=== PATIENT | male | born 1955 | race Caucasian/White ===

== ENCOUNTER → 2020-06-11 08:34 | Outpatient (REF) | payer MEDICARE, MEDICAID, SELFPAY ==
--- NOTE | 2020-06-11 | NM_ITS ---
EXAMINATION: NM BONE SCAN OF THE WHOLE BODY CLINICAL INFORMATION: Prostate cancer. History of arthritis, rib pain right side, also pain in back and feet. Right ankle fracture and surgery 2016. COMPARISON: The previous bone scan dated 02/24/2017 is available for comparison. Radiographs of the chest dated 05/27/2020 is available for comparison. Radiographs of the left knee dated 07/11/2019 and right ankle dated 03/15/2019 are also available for comparison. CTA the chest dated 05/29/2020 is available for comparison. TECHNIQUE: Multiple gamma scintillation camera images of the whole body were performed 3 hours following the intravenous administration of 34.4 mCi Tc-99m MDP. FINDINGS: In the head, no significant abnormalities are present. In the thoracic cage and upper extremities, there is very mildly increased activity acromioclavicular and sternoclavicular joints bilaterally. There is a small faint focus of increased activity at the junction of the right fifth rib and sternum. There is a focus of mildly increased activity in the right wrist. In the spine, a few foci of mildly increased activity are present in the mid and lower lumbar spine, most prominently diffusely at L5 and there is mildly increased activity in the right posterior elements of the lower cervical spine, likely due to facet arthropathy. In the pelvis, there is mildly increased activity in the superior lip of the acetabula bilaterally, more prominently on the left. In the lower extremities, there is a moderately intense increase in activity in the patellar and medial compartments of the left knee and there is diffusely increased activity in the right ankle and a small focus of mildly increased activity is present in the proximal left foot. No other definite bony abnormalities are noted. The urinary bladder and faint visualization of both kidneys are noted. Compared to the previous bone scan dated 02/24/2017, increased activity of moderate intensity at T12 is no longer present. The L5 abnormality is slightly more prominent as is the abnormality in the right posterior elements of the lower cervical spine. The left knee abnormalities are more intense. The remainder the scan is unchanged. IMPRESSION: Mild nonspecific abnormalities are noted as described above and these are all likely arthritic or traumatic in etiology. None of these abnormalities is strongly suspicious for metastatic disease.
== END ==
LOC: HO.NUCMED 08:34
PROVIDERS: PCP Physician Assistant; Visit Provider Urology
DX: C61 Malignant neoplasm of prostate (principal)
CPT/HCPCS: 78306; A9503

== ENCOUNTER → 2020-06-14 09:09 | Outpatient (BNVA) | payer MEDICARE, MEDICAID, SELFPAY | PROVIDERS: PCP Physician Assistant; Referring Provider Physician Assistant; Visit Provider Urology | DX: Z76.89 Persons encountering health services in other specified circumstances (principal) | CPT/HCPCS: 99212 ==

== ENCOUNTER → 2020-07-03 12:47 | Outpatient (BNVA) | payer MEDICARE, MEDICAID, SELFPAY | PROVIDERS: Visit Provider Internal Medicine Pulmonary Disease | DX: R06.02 Shortness of breath (principal) | CPT/HCPCS: 99212 ==

== ENCOUNTER 2020-07-08 08:56 | Outpatient (REF) | payer MEDICARE, MEDICAID, SELFPAY ==
[2020-07-08 10:11] LABS: MANUAL DIFF FLAG NO
[2020-07-08 10:24] LABS: Basophils Percent Auto 0.3 % (0-2); Eosinophils Absolute Auto 0.2 X10*3/uL (0.0-0.4); Eosinophils Percent Auto 2.6 % (0-4); Hematocrit 44.8 % (42-52); Hemoglobin 14.7 g/dl (14.0-18.0); Imm Gran Abs Auto 0.05 X10*3/uL (0.00-0.03); Imm Gran Pct Auto 0.7 % (0.0-0.4); Lymphocytes Absolute Auto 2.2 X10*3/uL (1.2-4.9); Lymphocytes Percent Auto 29.4 % (20-40); Mean Corpuscular HGB Conc 32.8 g/dl (31.0-36.0); Mean Corpuscular Hemoglobin 30.2 pg (27.0-33.0); Mean Corpuscular Volume 92.2 fL (80-98); Mean Platelet Volume 10.4 fL (9.4-12.4); Monocytes Absolute Auto 0.7 X10*3/uL (0.1-1.2); Neutrophils Absolute Auto 4.3 X10*3/uL (2.0-8.3); Platelet Count 201 X10*3/uL (160-400); Red Blood Count 4.86 X10*6/uL (4.60-5.80); Red Cell Distribution Width 13.4 % (11.0-16.0); White Blood Count 7.3 X10*3/uL (4.8-10.8)
[2020-07-08 11:04] LABS: Alanine Aminotransferase 25 U/L (0-40); Albumin Level 4.2 g/dL (3.5-5.0); Alkaline Phosphatase 110 U/L (39-117); Anion Gap 13 (12-20); Aspartate Amino Transferase 18 U/L (5-37); Bilirubin Total 0.5 mg/dL (0.0-1.0); Blood Urea Nitrogen 18 mg/dL (9-16); Calcium 8.7 mg/dL (8.4-10.2); Carbon Dioxide 25 mmol/L (22-29); Chloride 105 mmol/L (96-108); Estimated Glomerular Filt Rate > 60; Glucose Fasting 96 mg/dL (60-99); Potassium 4.3 mmol/l (3.3-5.1); Sodium 139 mmol/L (135-145); Total Protein 6.9 g/dL (6.5-8.0)
[2020-07-08 11:28] LABS: Prostate Specific Antigen 0.11 ng/mL (<0.05-4.0)
== END 2020-07-08 08:57 | disposition home or self-care (01) ==
LOC: HO.10HDL 08:56
PROVIDERS: PCP Physician Assistant; Visit Provider Internal Medicine Medical Oncology
DX: C61 Malignant neoplasm of prostate (principal); N40.0 Benign prostatic hyperplasia without lower urinary tract symptoms
CPT/HCPCS: 36415; 80053; 84153; 85025

== ENCOUNTER 2020-07-09 09:56 | Outpatient (REF) | payer MEDICARE, MEDICAID, SELFPAY | END 2020-07-09 09:57 | disposition home or self-care (01) | LOC: HO.RESP 09:56 | PROVIDERS: PCP Internal Medicine Pulmonary Disease; Visit Provider Internal Medicine Pulmonary Disease | DX: R06.09 Other forms of dyspnea (principal) ==

== ENCOUNTER → 2020-07-17 10:32 | Outpatient (BNVA) | payer MEDICARE, MEDICAID, SELFPAY | PROVIDERS: PCP Physician Assistant; Visit Provider Internal Medicine Pulmonary Disease | DX: R06.09 Other forms of dyspnea (principal) | CPT/HCPCS: 99212 ==

== ENCOUNTER → 2020-08-05 08:23 | Outpatient (BNVA) | payer MEDICARE, MEDICAID, SELFPAY | PROVIDERS: Referring Provider Physician Assistant; Visit Provider Internal Medicine Cardiovascular Disease | DX: I10 Essential (primary) hypertension (principal) | CPT/HCPCS: 99212 ==

== ENCOUNTER 2020-09-03 09:19 | Outpatient (REF) | payer MEDICARE, MEDICAID, SELFPAY ==
[2020-09-03 10:03] LABS: MANUAL DIFF FLAG NO
[2020-09-03 10:07] LABS: Basophils Percent Auto 0.4 % (0-2); Eosinophils Absolute Auto 0.2 X10*3/uL (0.0-0.4); Eosinophils Percent Auto 4.2 % (0-4); Hematocrit 46.1 % (42-52); Hemoglobin 15.2 g/dl (14.0-18.0); Imm Gran Abs Auto 0.01 X10*3/uL (0.00-0.03); Imm Gran Pct Auto 0.2 % (0.0-0.4); Lymphocytes Percent Auto 34.9 % (20-40); Mean Corpuscular Hemoglobin 30.3 pg (27.0-33.0); Mean Platelet Volume 10.2 fL (9.4-12.4); Monocytes Absolute Auto 0.5 X10*3/uL (0.1-1.2); Neutrophils Absolute Auto 2.9 X10*3/uL (2.0-8.3); Neutrophils Percent Auto 51.3 % (45-73); Platelet Count 179 X10*3/uL (160-400); Red Blood Count 5.01 X10*6/uL (4.60-5.80); Red Cell Distribution Width 13.2 % (11.0-16.0); White Blood Count 5.7 X10*3/uL (4.8-10.8)
[2020-09-03 10:37] LABS: Creatinine Urine 112.33 mg/dL; Microalbumin Urine < 5.0 mg/L
[2020-09-03 10:40] LABS: Alanine Aminotransferase 19 U/L (0-40); Albumin Level 4.4 g/dL (3.5-5.0); Alkaline Phosphatase 123 U/L (39-117); Anion Gap 12 (12-20); Aspartate Amino Transferase 14 U/L (5-37); Bilirubin Total 0.5 mg/dL (0.0-1.0); Blood Urea Nitrogen 11 mg/dL (9-16); Calcium 8.6 mg/dL (8.4-10.2); Carbon Dioxide 28 mmol/L (22-29); Chloride 103 mmol/L (96-108); Cholesterol 225 mg/dL; Estimated Glomerular Filt Rate > 60; Glucose Fasting 107 mg/dL (60-99); HDL Cholesterol 42 mg/dL; LDL Cholesterol Calculated 165 mg/dl; Sodium 139 mmol/L (135-145); Triglycerides 93 mg/dL
[2020-09-03 11:00] LABS: Prostate Specific Antigen 0.11 ng/mL (<0.05-4.0)
[2020-09-07 11:32] LABS: Testosterone, Free 88.9 pg/mL (35.0-155.0); Testosterone, Total 644 ng/dL (250-1100)
== END 2020-09-03 09:20 | disposition home or self-care (01) ==
LOC: HO.10HDL 09:19
PROVIDERS: Absent Provider Urology; Visit Provider Physician Assistant
DX: C61 Malignant neoplasm of prostate (principal); C79.51 Secondary malignant neoplasm of bone; E29.1 Testicular hypofunction; I10 Essential (primary) hypertension
CPT/HCPCS: 36415; 80053; 80061; 82043; 84153; 84402; 84403; 85025

== ENCOUNTER 2020-10-04 09:06 | Outpatient (REF) | payer MEDICARE, MEDICAID, SELFPAY ==
[2020-10-04 10:03] LABS: MANUAL DIFF FLAG NO
[2020-10-04 10:11] LABS: Basophils Percent Auto 0.4 % (0-2); Eosinophils Absolute Auto 0.2 X10*3/uL (0.0-0.4); Eosinophils Percent Auto 3.4 % (0-4); Hematocrit 46.7 % (42-52); Hemoglobin 15.5 g/dl (14.0-18.0); Imm Gran Abs Auto 0.02 X10*3/uL (0.00-0.03); Imm Gran Pct Auto 0.3 % (0.0-0.4); Lymphocytes Absolute Auto 2.3 X10*3/uL (1.2-4.9); Mean Corpuscular HGB Conc 33.2 g/dl (31.0-36.0); Mean Corpuscular Hemoglobin 30.5 pg (27.0-33.0); Mean Corpuscular Volume 91.9 fL (80-98); Mean Platelet Volume 10.9 fL (9.4-12.4); Monocytes Absolute Auto 0.5 X10*3/uL (0.1-1.2); Monocytes Percent Auto 7.7 % (2-11); Neutrophils Absolute Auto 3.6 X10*3/uL (2.0-8.3); Neutrophils Percent Auto 54.2 % (45-73); Platelet Count 187 X10*3/uL (160-400); Red Blood Count 5.08 X10*6/uL (4.60-5.80); Red Cell Distribution Width 12.8 % (11.0-16.0); White Blood Count 6.7 X10*3/uL (4.8-10.8)
[2020-10-04 10:44] LABS: Alanine Aminotransferase 18 U/L (0-40); Albumin Level 4.4 g/dL (3.5-5.0); Alkaline Phosphatase 122 U/L (39-117); Anion Gap 12 (12-20); Aspartate Amino Transferase 17 U/L (5-37); Bilirubin Total 0.6 mg/dL (0.0-1.0); Blood Urea Nitrogen 12 mg/dL (9-16); Calcium 8.8 mg/dL (8.4-10.2); Carbon Dioxide 27 mmol/L (22-29); Chloride 104 mmol/L (96-108); Estimated Glomerular Filt Rate > 60; Glucose Fasting 100 mg/dL (60-99); Sodium 139 mmol/L (135-145); Total Protein 7.3 g/dL (6.5-8.0)
[2020-10-04 11:08] LABS: Prostate Specific Antigen 0.12 ng/mL (<0.05-4.0)
[2020-10-11 11:47] LABS: Testosterone, Total 2231 ng/dL (250-1100)
== END 2020-10-04 09:07 | disposition home or self-care (01) ==
LOC: HO.10HDL 09:06
PROVIDERS: Absent Provider Urology; PCP Physician Assistant; Visit Provider Internal Medicine Medical Oncology
DX: N40.0 Benign prostatic hyperplasia without lower urinary tract symptoms (principal); C61 Malignant neoplasm of prostate; Z12.5 Encounter for screening for malignant neoplasm of prostate
CPT/HCPCS: 36415; 80053; 84153; 84403; 85025

== ENCOUNTER → 2020-10-22 10:59 | Outpatient (BNVA) | payer MEDICARE, MEDICAID, SELFPAY | PROVIDERS: PCP Physician Assistant; Visit Provider Urology | DX: E29.1 Testicular hypofunction (principal); C61 Malignant neoplasm of prostate | CPT/HCPCS: 99212 ==

== ENCOUNTER 2020-11-06 09:55 | Outpatient (REF) | payer MEDICARE, MEDICAID, SELFPAY ==
[2020-11-06 14:47] LABS: Prostate Specific Antigen 0.13 ng/mL (<0.05-4.0)
[2020-11-10 21:31] LABS: Testosterone, Total 682 ng/dL (250-1100)
== END 2020-11-06 09:56 | disposition home or self-care (01) ==
LOC: HO.10HDL 09:55
PROVIDERS: Visit Provider Urology
DX: C61 Malignant neoplasm of prostate (principal); C79.51 Secondary malignant neoplasm of bone; N13.8 Other obstructive and reflux uropathy; N40.1 Benign prostatic hyperplasia with lower urinary tract symptoms
CPT/HCPCS: 36415; 84153; 84403

== ENCOUNTER → 2020-11-19 11:30 | Outpatient (BNVA) | payer MEDICARE, MEDICAID, SELFPAY | PROVIDERS: PCP Physician Assistant; Visit Provider Urology | DX: Z13.89 Encounter for screening for other disorder (principal) | CPT/HCPCS: Q3014 ==

== ENCOUNTER 2021-01-08 09:40 | Outpatient (REF) | payer MEDICARE, MEDICAID, SELFPAY ==
[2021-01-08 13:59] LABS: MANUAL DIFF FLAG NO
[2021-01-08 14:04] LABS: Basophils Percent Auto 0.4 % (0-2); Eosinophils Absolute Auto 0.4 X10*3/uL (0.0-0.4); Eosinophils Percent Auto 5.7 % (0-4); Hematocrit 46.3 % (42-52); Hemoglobin 15.4 g/dl (14.0-18.0); Imm Gran Abs Auto 0.02 X10*3/uL (0.00-0.03); Imm Gran Pct Auto 0.3 % (0.0-0.4); Lymphocytes Percent Auto 27.2 % (20-40); Mean Corpuscular HGB Conc 33.3 g/dl (31.0-36.0); Mean Corpuscular Hemoglobin 30.4 pg (27.0-33.0); Mean Corpuscular Volume 91.5 fL (80-98); Mean Platelet Volume 11.1 fL (9.4-12.4); Monocytes Absolute Auto 0.7 X10*3/uL (0.1-1.2); Monocytes Percent Auto 8.7 % (2-11); Neutrophils Absolute Auto 4.3 X10*3/uL (2.0-8.3); Neutrophils Percent Auto 57.7 % (45-73); Platelet Count 201 X10*3/uL (160-400); Red Blood Count 5.06 X10*6/uL (4.60-5.80); Red Cell Distribution Width 13.7 % (11.0-16.0); White Blood Count 7.5 X10*3/uL (4.8-10.8)
[2021-01-08 14:27] LABS: Alanine Aminotransferase 18 U/L (0-40); Albumin Level 4.5 g/dL (3.5-5.0); Alkaline Phosphatase 124 U/L (39-117); Anion Gap 13 (12-20); Aspartate Amino Transferase 15 U/L (5-37); Bilirubin Total 0.5 mg/dL (0.0-1.0); Blood Urea Nitrogen 19 mg/dL (9-16); Calcium 9.2 mg/dL (8.4-10.2); Carbon Dioxide 26 mmol/L (22-29); Chloride 105 mmol/L (96-108); Cholesterol 225 mg/dL; Estimated Glomerular Filt Rate > 60; Glucose Fasting 104 mg/dL (60-99); HDL Cholesterol 35 mg/dL; LDL Cholesterol Calculated 171 mg/dl; Potassium 4.3 mmol/L (3.3-5.1); Sodium 140 mmol/L (135-145); Total Protein 7.3 g/dL (6.5-8.0); Triglycerides 96 mg/dL
[2021-01-08 14:47] LABS: Prostate Specific Antigen 0.13 ng/mL (<0.05-4.0)
== END 2021-01-08 09:41 | disposition home or self-care (01) ==
LOC: HO.10HDL 09:40
PROVIDERS: Visit Provider Internal Medicine Medical Oncology
DX: Z12.5 Encounter for screening for malignant neoplasm of prostate (principal); C61 Malignant neoplasm of prostate; E66.3 Overweight; M85.80 Other specified disorders of bone density and structure, unspecified site; N40.0 Benign prostatic hyperplasia without lower urinary tract symptoms
CPT/HCPCS: 36415; 80053; 80061; 84153; 85025

== ENCOUNTER → 2021-02-10 09:01 | Outpatient (BNVA) | payer MEDICARE, MEDICAID, SELFPAY | PROVIDERS: PCP Physician Assistant; Referring Provider Physician Assistant; Visit Provider Internal Medicine Cardiovascular Disease | DX: I10 Essential (primary) hypertension (principal); Z79.899 Other long term (current) drug therapy | CPT/HCPCS: 99212 ==

== ENCOUNTER 2021-03-12 07:38 | Outpatient (REF) | payer MEDICARE, MEDICAID, SELFPAY ==
--- NOTE | ~2021-03-12 | XR_ITS ---
EXAMINATION: XR SHOULDER, RIGHT XR CLAVICLE, RIGHT XR ELBOW, RIGHT CLINICAL INFORMATION: Right shoulder pain. Upper arm deformity. COMPARISON: Right elbow radiographs dated 01/07/2016. Chest radiograph dated 05/27/2020. TECHNIQUE: AP, Grashey, scapular Y, and axillary views of the right shoulder. AP view of the right clavicle. AP, oblique, and lateral views of the right elbow. FINDINGS: RIGHT SHOULDER: Mild glenohumeral joint space narrowing with small marginal osteophytes. Moderate acromioclavicular osteoarthritis with subacromial spurring. No osseous erosion. No abnormal soft tissue calcification. No lytic or blastic osseous lesion. RIGHT CLAVICLE: Chronic deformity of the distal right clavicle, consistent with a remote distal right clavicular fracture. Findings are unchanged when compared to prior examinations. No lytic or blastic osseous lesion. Moderate acromioclavicular osteoarthritis. RIGHT ELBOW: Severe radiocapitellar and ulnotrochlear joint space narrowing with prominent bony remodeling and subchondral sclerosis. Large ossified loose body anteriorly measuring up to 2.9 cm. No acute fracture. No joint effusion. XR/XR clavicle RT IMPRESSION: Right shoulder: Mild glenohumeral and moderate acromioclavicular osteoarthritis. Right clavicle: Deformity of the distal right clavicle, consistent with a remote fracture, unchanged. Right elbow: Severe osteoarthritis with a large ossified loose body anteriorly measuring up to 2.9 cm. Findings are similar when compared to the prior radiographs from 2016.
--- NOTE | ~2021-03-12 | XR_ITS ---
EXAMINATION: XR SHOULDER, RIGHT XR CLAVICLE, RIGHT XR ELBOW, RIGHT CLINICAL INFORMATION: Right shoulder pain. Upper arm deformity. COMPARISON: Right elbow radiographs dated 01/07/2016. Chest radiograph dated 05/27/2020. TECHNIQUE: AP, Grashey, scapular Y, and axillary views of the right shoulder. AP view of the right clavicle. AP, oblique, and lateral views of the right elbow. FINDINGS: RIGHT SHOULDER: Mild glenohumeral joint space narrowing with small marginal osteophytes. Moderate acromioclavicular osteoarthritis with subacromial spurring. No osseous erosion. No abnormal soft tissue calcification. No lytic or blastic osseous lesion. RIGHT CLAVICLE: Chronic deformity of the distal right clavicle, consistent with a remote distal right clavicular fracture. Findings are unchanged when compared to prior examinations. No lytic or blastic osseous lesion. Moderate acromioclavicular osteoarthritis. RIGHT ELBOW: Severe radiocapitellar and ulnotrochlear joint space narrowing with prominent bony remodeling and subchondral sclerosis. Large ossified loose body anteriorly measuring up to 2.9 cm. No acute fracture. No joint effusion. XR/XR shoulder RT min 2V IMPRESSION: Right shoulder: Mild glenohumeral and moderate acromioclavicular osteoarthritis. Right clavicle: Deformity of the distal right clavicle, consistent with a remote fracture, unchanged. Right elbow: Severe osteoarthritis with a large ossified loose body anteriorly measuring up to 2.9 cm. Findings are similar when compared to the prior radiographs from 2016.
--- NOTE | ~2021-03-12 | XR_ITS ---
EXAMINATION: XR SHOULDER, RIGHT XR CLAVICLE, RIGHT XR ELBOW, RIGHT CLINICAL INFORMATION: Right shoulder pain. Upper arm deformity. COMPARISON: Right elbow radiographs dated 01/07/2016. Chest radiograph dated 05/27/2020. TECHNIQUE: AP, Grashey, scapular Y, and axillary views of the right shoulder. AP view of the right clavicle. AP, oblique, and lateral views of the right elbow. FINDINGS: RIGHT SHOULDER: Mild glenohumeral joint space narrowing with small marginal osteophytes. Moderate acromioclavicular osteoarthritis with subacromial spurring. No osseous erosion. No abnormal soft tissue calcification. No lytic or blastic osseous lesion. RIGHT CLAVICLE: Chronic deformity of the distal right clavicle, consistent with a remote distal right clavicular fracture. Findings are unchanged when compared to prior examinations. No lytic or blastic osseous lesion. Moderate acromioclavicular osteoarthritis. RIGHT ELBOW: Severe radiocapitellar and ulnotrochlear joint space narrowing with prominent bony remodeling and subchondral sclerosis. Large ossified loose body anteriorly measuring up to 2.9 cm. No acute fracture. No joint effusion. XR/XR elbow RT 2V IMPRESSION: Right shoulder: Mild glenohumeral and moderate acromioclavicular osteoarthritis. Right clavicle: Deformity of the distal right clavicle, consistent with a remote fracture, unchanged. Right elbow: Severe osteoarthritis with a large ossified loose body anteriorly measuring up to 2.9 cm. Findings are similar when compared to the prior radiographs from 2016.
[2021-03-12 10:06] LABS: MANUAL DIFF FLAG NO
[2021-03-12 10:13] LABS: Basophils Percent Auto 0.2 % (0-2); Eosinophils Absolute Auto 0.2 X10*3/uL (0.0-0.4); Hematocrit 45.1 % (42-52); Hemoglobin 14.7 g/dl (14.0-18.0); Imm Gran Abs Auto 0.02 X10*3/uL (0.00-0.03); Imm Gran Pct Auto 0.2 % (0.0-0.4); Lymphocytes Absolute Auto 2.5 X10*3/uL (1.2-4.9); Lymphocytes Percent Auto 30.6 % (20-40); Mean Corpuscular HGB Conc 32.6 g/dl (31.0-36.0); Mean Corpuscular Hemoglobin 30.6 pg (27.0-33.0); Mean Corpuscular Volume 93.8 fL (80-98); Mean Platelet Volume 10.6 fL (9.4-12.4); Monocytes Absolute Auto 0.7 X10*3/uL (0.1-1.2); Monocytes Percent Auto 8.6 % (2-11); Neutrophils Absolute Auto 4.6 X10*3/uL (2.0-8.3); Neutrophils Percent Auto 57.4 % (45-73); Platelet Count 198 X10*3/uL (160-400); Red Blood Count 4.81 X10*6/uL (4.60-5.80); Red Cell Distribution Width 13.5 % (11.0-16.0)
[2021-03-12 10:41] LABS: Creatinine Urine 163.86 mg/dL; Microalbum/Creatinine Ratio Ur 4.8 ug/mg cr
[2021-03-12 10:50] LABS: Alanine Aminotransferase 16 U/L (0-40); Albumin Level 4.4 g/dL (3.5-5.0); Alkaline Phosphatase 123 U/L (39-117); Anion Gap 15 (12-20); Aspartate Amino Transferase 15 U/L (5-37); Bilirubin Total 0.7 mg/dL (0.0-1.0); Blood Urea Nitrogen 15 mg/dL (9-16); Carbon Dioxide 22 mmol/L (22-29); Chloride 106 mmol/L (96-108); Cholesterol 220 mg/dL; Estimated Glomerular Filt Rate > 60; Glucose Fasting 108 mg/dL (60-99); HDL Cholesterol 34 mg/dL; LDL Cholesterol Calculated 157 mg/dl; Potassium 4.3 mmol/L (3.3-5.1); Sodium 139 mmol/L (135-145); Total Protein 7.3 g/dL (6.5-8.0); Triglycerides 145 mg/dL
[2021-03-12 11:07] LABS: Prostate Specific Antigen 0.16 ng/mL (<0.05-4.0)
[2021-03-12 11:12] LABS: TSH reflex Free T4 1.69 uIU/mL (0.32-4.0)
[2021-03-16 17:56] LABS: Testosterone, Free 75.4 pg/mL (35.0-155.0); Testosterone, Total 667 ng/dL (250-1100)
== END 2021-03-12 07:39 | disposition home or self-care (01) ==
LOC: HO.10HDL 07:38
PROVIDERS: Physician Assistant; Visit Provider Internal Medicine Medical Oncology
DX: Z12.5 Encounter for screening for malignant neoplasm of prostate (principal); C61 Malignant neoplasm of prostate; E66.3 Overweight; E78.9 Disorder of lipoprotein metabolism, unspecified; I10 Essential (primary) hypertension; M25.511 Pain in right shoulder; M21.921 Unspecified acquired deformity of right upper arm
CPT/HCPCS: 36415; 73000; 73030; 73070; 80053; 80061; 82043; 84153; 84402; 84403; 84443; 85025

== ENCOUNTER 2021-05-15 10:23 | Outpatient (REF) | payer MEDICARE, MEDICAID, SELFPAY ==
[2021-05-15 14:00] LABS: MANUAL DIFF FLAG NO
[2021-05-15 14:32] LABS: Alanine Aminotransferase 19 U/L (0-40); Albumin Level 4.5 g/dL (3.5-5.0); Alkaline Phosphatase 120 U/L (39-117); Anion Gap 11 (12-20); Aspartate Amino Transferase 18 U/L (5-37); Bilirubin Total 0.9 mg/dL (0.0-1.0); Blood Urea Nitrogen 12 mg/dL (9-16); Calcium 9.1 mg/dL (8.4-10.2); Carbon Dioxide 25 mmol/L (22-29); Chloride 107 mmol/L (96-108); Estimated Glomerular Filt Rate > 60; Glucose Fasting 95 mg/dL (60-99); Potassium 4.3 mmol/L (3.3-5.1); Sodium 139 mmol/L (135-145); Total Protein 7.2 g/dL (6.5-8.0)
[2021-05-15 14:33] LABS: Basophils Percent Auto 0.5 % (0-2); Eosinophils Absolute Auto 0.2 X10*3/uL (0.0-0.4); Eosinophils Percent Auto 3.2 % (0-4); Hematocrit 44.9 % (42-52); Hemoglobin 14.8 g/dl (14.0-18.0); Imm Gran Abs Auto 0.01 X10*3/uL (0.00-0.03); Imm Gran Pct Auto 0.2 % (0.0-0.4); Lymphocytes Percent Auto 30.9 % (20-40); Mean Corpuscular Hemoglobin 30.3 pg (27.0-33.0); Mean Corpuscular Volume 91.8 fL (80-98); Mean Platelet Volume 10.8 fL (9.4-12.4); Monocytes Absolute Auto 0.6 X10*3/uL (0.1-1.2); Monocytes Percent Auto 8.4 % (2-11); Neutrophils Absolute Auto 3.8 X10*3/uL (2.0-8.3); Neutrophils Percent Auto 56.8 % (45-73); Platelet Count 201 X10*3/uL (160-400); Red Blood Count 4.89 X10*6/uL (4.60-5.80); Red Cell Distribution Width 13.3 % (11.0-16.0); White Blood Count 6.6 X10*3/uL (4.8-10.8)
[2021-05-15 14:50] LABS: Prostate Specific Antigen 0.14 ng/mL (<0.05-4.0)
[2021-05-20 15:56] LABS: Testosterone, Total 458 ng/dL (250-1100)
== END 2021-05-15 10:24 | disposition home or self-care (01) ==
LOC: HO.10HDL 10:23
PROVIDERS: Internal Medicine Medical Oncology; Visit Provider Urology
DX: E29.1 Testicular hypofunction (principal); C61 Malignant neoplasm of prostate
CPT/HCPCS: 36415; 80053; 84153; 84403; 85025

== ENCOUNTER → 2021-05-19 08:49 | Outpatient (BNVA) | payer MEDICARE, MEDICAID, SELFPAY | PROVIDERS: PCP Physician Assistant; Visit Provider Internal Medicine Cardiovascular Disease | DX: I10 Essential (primary) hypertension (principal) | CPT/HCPCS: 93005; 99212 ==

== ENCOUNTER → 2021-06-05 09:45 | Outpatient (REF) | payer MEDICARE, MEDICAID, SELFPAY ==
--- NOTE | ~2021-06-05 | NM_ITS ---
EXAMINATION: NM BONE SCAN OF THE WHOLE BODY CLINICAL INFORMATION: Prostate cancer, left rib pain. Patient states bilateral rib pain and pain in right shoulder and down right arm. COMPARISON: The previous bone scan dated 06/11/2020 is available for comparison. Radiographs of the right shoulder, right elbow, and right clavicle all dated 03/12/2021 are available for comparison. TECHNIQUE: Multiple gamma scintillation camera images of the whole body were performed 2.75 hours following the intravenous administration of 33 mCi Tc-99m MDP. FINDINGS: In the head, no significant abnormalities are present. In the thoracic cage and upper extremities, there is mildly increased activity in the acromioclavicular joints bilaterally and minimally increased activity in the sternoclavicular joints bilaterally, the costochondral junction of the left first rib and in a faint small subacromial focus in the lateral acromial aspect of the right humeral head. There is a small focus of mildly increased activity in the medial aspect of the right fifth rib adjacent to the lateral margin of the lower sternum, likely degenerative. In the spine, there is a focus of mildly increased activity in the right posterior elements of the lower cervical spine, probably due to facet arthropathy. There is minimally increased activity in the left side of L4 and faintly at L5. In the pelvis, there is minimally increased activity in the superior lip of the left acetabulum. In the lower extremities, there is mildly increased activity in the patellar and medial compartments of the left knee and faintly in the mid tibial plateau on the right. There is also mildly increased activity diffusely in the proximal right foot and right ankle and in small foci in the proximal left foot and medial left midfoot. No other definite bony abnormalities are noted. The urinary bladder and faint visualization of both kidneys are noted. Compared to the previous scan dated 06/11/2020, there has not been a significant change. NM/NM bone scan whole body IMPRESSION: Mild nonspecific abnormalities are noted as described above and these are all likely arthritic or traumatic in etiology. None of these abnormalities is strongly suspicious for metastatic disease.
== END ==
LOC: HO.NUCMED 09:45
PROVIDERS: Visit Provider Internal Medicine Medical Oncology
DX: R07.81 Pleurodynia (principal); C61 Malignant neoplasm of prostate
CPT/HCPCS: 78306; A9503

== ENCOUNTER → 2021-06-11 08:31 | Outpatient (BNVA) | payer MEDICARE, MEDICAID, SELFPAY | PROVIDERS: Visit Provider Physician Assistant | DX: M19.011 Primary osteoarthritis, right shoulder (principal); M19.021 Primary osteoarthritis, right elbow | CPT/HCPCS: 99202 ==

== ENCOUNTER 2021-06-17 09:42 | Outpatient (REF) | payer MEDICARE, MEDICAID, SELFPAY ==
[2021-06-17 10:29] LABS: MANUAL DIFF FLAG NO
[2021-06-17 10:38] LABS: Basophils Percent Auto 0.3 % (0-2); Eosinophils Absolute Auto 0.2 X10*3/uL (0.0-0.4); Eosinophils Percent Auto 2.5 % (0-4); Hematocrit 44.5 % (42-52); Hemoglobin 14.9 g/dl (14.0-18.0); Imm Gran Abs Auto 0.02 X10*3/uL (0.00-0.03); Imm Gran Pct Auto 0.3 % (0.0-0.4); Lymphocytes Absolute Auto 2.1 X10*3/uL (1.2-4.9); Lymphocytes Percent Auto 30.7 % (20-40); Mean Corpuscular HGB Conc 33.5 g/dl (31.0-36.0); Mean Corpuscular Hemoglobin 30.2 pg (27.0-33.0); Mean Corpuscular Volume 90.1 fL (80-98); Mean Platelet Volume 10.4 fL (9.4-12.4); Monocytes Absolute Auto 0.6 X10*3/uL (0.1-1.2); Monocytes Percent Auto 8.6 % (2-11); Neutrophils Absolute Auto 3.9 X10*3/uL (2.0-8.3); Neutrophils Percent Auto 57.6 % (45-73); Platelet Count 191 X10*3/uL (160-400); Red Blood Count 4.94 X10*6/uL (4.60-5.80); Red Cell Distribution Width 13.5 % (11.0-16.0); White Blood Count 6.8 X10*3/uL (4.8-10.8)
[2021-06-17 11:12] LABS: Alanine Aminotransferase 19 U/L (0-40); Albumin Level 4.5 g/dL (3.5-5.0); Alkaline Phosphatase 123 U/L (39-117); Anion Gap 16 (12-20); Aspartate Amino Transferase 18 U/L (5-37); Bilirubin Total 1.4 mg/dL (0.0-1.0); Blood Urea Nitrogen 14 mg/dL (9-16); Calcium 9.4 mg/dL (8.4-10.2); Carbon Dioxide 22 mmol/L (22-29); Chloride 106 mmol/L (96-108); Estimated Glomerular Filt Rate > 60; Glucose Fasting 105 mg/dL (60-99); Potassium 4.1 mmol/L (3.3-5.1); Sodium 140 mmol/L (135-145); Total Protein 7.3 g/dL (6.5-8.0)
[2021-06-17 11:32] LABS: Prostate Specific Antigen 0.15 ng/mL (<0.05-4.0)
== END 2021-06-17 09:43 | disposition home or self-care (01) ==
LOC: HO.10HDL 09:42
PROVIDERS: Visit Provider Internal Medicine Medical Oncology
DX: Z12.5 Encounter for screening for malignant neoplasm of prostate (principal); C61 Malignant neoplasm of prostate
CPT/HCPCS: 36415; 80053; 84153; 85025

== ENCOUNTER → 2021-08-06 08:47 | Outpatient (BNVA) | payer MEDICARE, MEDICAID, SELFPAY | PROVIDERS: PCP Physician Assistant; Visit Provider Urology | DX: C61 Malignant neoplasm of prostate (principal); C79.51 Secondary malignant neoplasm of bone | CPT/HCPCS: Q3014 ==

== ENCOUNTER 2021-09-05 11:23 | Outpatient (REF) | payer MEDICARE, MEDICAID, SELFPAY ==
--- NOTE | ~2021-09-05 | XR_ITS ---
EXAMINATION: XR SHOULDER, RIGHT CLINICAL INFORMATION: Right shoulder pain COMPARISON: Radiographs right shoulder and right clavicle 03/12/2021. CT right shoulder 09/12/2021 TECHNIQUE: Right shoulder is imaged in 3 views on 09/05/2021. FINDINGS: There is no acute fracture or dislocation. The acromioclavicular alignment is normal. There are degenerative changes acromioclavicular joint. Small corticated ossicle is seen at superior aspect acromioclavicular joint. Bony mineralization is normal. No destructive process. No visible rotator cuff calcifications. XR/XR shoulder RT min 2V IMPRESSION: Degenerative changes acromioclavicular joint.
== END 2021-09-05 11:24 | disposition home or self-care (01) ==
LOC: HO.HOSX 11:23
PROVIDERS: Visit Provider Physician Assistant
DX: S42.141D Displaced fracture of glenoid cavity of scapula, right shoulder, subsequent encounter for fracture with routine healing (principal); S42.151D Displaced fracture of neck of scapula, right shoulder, subsequent encounter for fracture with routine healing
CPT/HCPCS: 73030; 99212

== ENCOUNTER 2021-09-12 09:28 | Outpatient (REF) | payer MEDICARE, MEDICAID, SELFPAY ==
--- NOTE | ~2021-09-12 | CT_ITS ---
EXAMINATION: CT SHOULDER WITHOUT CONTRAST, RIGHT CLINICAL INFORMATION: Displaced fracture of the glenoid. COMPARISON: Radiographs dated 09/05/2021 TECHNIQUE: Multidetector volumetric imaging was obtained through the right shoulder without contrast. Multiplanar reformatted images in coronal and sagittal orientations were submitted. This CT examination was performed using dose optimization techniques as appropriate, variously including the following: *Automated exposure control *Adjustment of mA and/or kV according to patient size (this includes techniques or standardized protocols for targeted exams where dose is matched to indication/reason for exam; i.e. extremities or head) *Use of iterative reconstruction technique DLP: 486 mGy-cm FINDINGS: No acute fracture or malalignment. Glenoid appears intact. There is an osseous excrescence along the inferior glenoid tubercle near the triceps tendon origin which could correspond to enthesopathy. There is mild glenohumeral joint space narrowing with moderate-sized glenoid osteophytes. Severe osteoarthritis at the acromioclavicular joint is characterized by marked nonuniform joint space narrowing, articular cortical irregularity, and marginal osteophytes. Mild osteoarthritis of the sternoclavicular joint. There is an old healed distal clavicular fracture. Undersurface of the acromion is curved with anterior and lateral subacromial spurs. Trace glenohumeral joint effusion. Normal rotator cuff musculature. No appreciable atrophy. Normal right chest wall. Imaged right lung is unremarkable. Confluent bridging osteophytes are present at the imaged thoracic spine levels, most typical of diffuse idiopathic skeletal hyperostosis. CT/CT shoulder RT wo con IMPRESSION: 1. No acute fracture or malalignment at the right shoulder. Glenoid is intact. 2. Mild to moderate glenohumeral osteoarthritis. 3. Old healed distal clavicular fracture. Severe acromioclavicular and mild sternoclavicular osteoarthritis.
== END 2021-09-12 09:29 | disposition home or self-care (01) ==
LOC: HO.CT 09:28
PROVIDERS: PCP Physician Assistant; Visit Provider Physician Assistant
DX: S42.141A Displaced fracture of glenoid cavity of scapula, right shoulder, initial encounter for closed fracture (principal); S42.151A Displaced fracture of neck of scapula, right shoulder, initial encounter for closed fracture
CPT/HCPCS: 73200

== ENCOUNTER → 2021-09-17 15:22 | Outpatient (BNVA) | payer MEDICARE, MEDICAID, SELFPAY | PROVIDERS: PCP Physician Assistant; Visit Provider Physician Assistant | DX: M19.011 Primary osteoarthritis, right shoulder (principal) | CPT/HCPCS: 20610; 99212; J1040 ==

== ENCOUNTER → 2021-09-22 09:00 | Outpatient (BNVA) | payer MEDICARE, MEDICAID, SELFPAY | PROVIDERS: PCP Physician Assistant; Referring Provider Physician Assistant; Visit Provider Internal Medicine Cardiovascular Disease | DX: I10 Essential (primary) hypertension (principal) | CPT/HCPCS: 99212 ==

== ENCOUNTER 2021-11-27 07:56 | Outpatient (REF) | payer MEDICARE, MEDICAID, SELFPAY ==
[2021-11-27 08:41] LABS: MANUAL DIFF FLAG NO
[2021-11-27 09:00] LABS: Basophils Percent Auto 0.1 % (0-2); Eosinophils Absolute Auto 0.2 X10*3/uL (0.0-0.4); Eosinophils Percent Auto 2.9 % (0-4); Hematocrit 41.5 % (42.0-52.0); Hemoglobin 13.8 g/dl (14.0-18.0); Imm Gran Abs Auto 0.02 X10*3/uL (0.00-0.03); Imm Gran Pct Auto 0.3 % (0.0-0.4); Lymphocytes Percent Auto 27.2 % (20-40); Mean Corpuscular HGB Conc 33.3 g/dl (31.0-36.0); Mean Corpuscular Hemoglobin 30.7 pg (27.0-33.0); Mean Corpuscular Volume 92.2 fL (80.0-98.0); Mean Platelet Volume 10.1 fL (9.4-12.4); Monocytes Absolute Auto 0.6 X10*3/uL (0.1-1.2); Monocytes Percent Auto 8.1 % (2-11); Neutrophils Absolute Auto 4.4 x10*3/uL (2.0-8.3); Neutrophils Percent Auto 61.4 % (45-73); Platelet Count 174 X10*3/uL (160-400); Red Cell Distribution Width 13.6 % (11.0-16.0); White Blood Count 7.2 X10*3/uL (4.8-10.8)
[2021-11-27 09:28] LABS: Alanine Aminotransferase 22 U/L (0-40); Albumin Level 4.3 g/dL (3.5-5.0); Alkaline Phosphatase 107 U/L (39-117); Anion Gap 13 (12-20); Aspartate Amino Transferase 18 U/L (5-37); Bilirubin Total 0.9 mg/dL (0.0-1.0); Blood Urea Nitrogen 14 mg/dL (9-16); Calcium 9.3 mg/dL (8.4-10.2); Carbon Dioxide 25 mmol/L (22-29); Chloride 106 mmol/L (96-108); Cholesterol 191 mg/dL; Estimated Glomerular Filt Rate > 60; Glucose Fasting 103 mg/dL (60-99); HDL Cholesterol 37 mg/dL; LDL Cholesterol Calculated 140 mg/dl; Potassium 4.2 mmol/L (3.3-5.1); Sodium 140 mmol/L (135-145); Total Protein 7.1 g/dL (6.5-8.0); Triglycerides 73 mg/dL
[2021-11-27 09:51] LABS: Prostate Specific Antigen 0.19 ng/mL (<0.05-4.0)
[2021-12-03 11:46] LABS: Testosterone, Total 479 ng/dL (250-1100)
== END 2021-11-27 07:57 | disposition home or self-care (01) ==
LOC: HO.LAB 07:56
PROVIDERS: Absent Provider Internal Medicine Medical Oncology; PCP Physician Assistant; Visit Provider Urology
DX: Z12.5 Encounter for screening for malignant neoplasm of prostate (principal); C61 Malignant neoplasm of prostate; E66.3 Overweight
CPT/HCPCS: 36415; 80053; 80061; 84153; 84403; 85025

== ENCOUNTER → 2021-12-04 10:57 | Outpatient (BNVA) | payer MEDICARE, MEDICAID, SELFPAY | PROVIDERS: PCP Physician Assistant; Visit Provider Urology | DX: Z13.89 Encounter for screening for other disorder (principal) | CPT/HCPCS: Q3014 ==

== ENCOUNTER 2021-12-31 08:25 | Outpatient (REF) | payer MEDICARE, MEDICAID, SELFPAY ==
[2021-12-31 10:30] LABS: Hematocrit 41.6 % (42.0-52.0); Hemoglobin 13.4 g/dl (14.0-18.0); Mean Corpuscular HGB Conc 32.2 g/dl (31.0-36.0); Mean Corpuscular Hemoglobin 30.6 pg (27.0-33.0); Mean Platelet Volume 10.6 fL (9.4-12.4); Platelet Count 176 X10*3/uL (160-400); Red Blood Count 4.38 X10*6/uL (4.60-5.80); Red Cell Distribution Width 13.7 % (11.0-16.0); White Blood Count 6.6 X10*3/uL (4.8-10.8)
[2021-12-31 10:40] LABS: Alanine Aminotransferase 18 U/L (0-40); Albumin Level 4.2 g/dL (3.5-5.0); Alkaline Phosphatase 95 U/L (39-117); Anion Gap 11 (12-20); Aspartate Amino Transferase 16 U/L (5-37); Bilirubin Total 0.5 mg/dL (0.0-1.0); Blood Urea Nitrogen 22 mg/dL (9-16); Calcium 9.3 mg/dL (8.4-10.2); Carbon Dioxide 24 mmol/L (22-29); Chloride 109 mmol/L (96-108); Cholesterol 177 mg/dL; Estimated Glomerular Filt Rate > 60; Glucose Fasting 99 mg/dL (60-99); HDL Cholesterol 37 mg/dL; LDL Cholesterol Calculated 123 mg/dl; Potassium 4.3 mmol/L (3.3-5.1); Sodium 140 mmol/L (135-145); Total Protein 6.9 g/dL (6.5-8.0); Triglycerides 88 mg/dL
[2021-12-31 10:53] LABS: Creatinine Urine 70.01 mg/dL; Microalbum/Creatinine Ratio Ur 7.1 ug/mg cr
[2021-12-31 11:02] LABS: TSH reflex Free T4 1.12 uIU/mL (0.32-4.0)
[2021-12-31 11:10] LABS: Estimated Average Glucose 114 mg/dL; Hemoglobin A1c % 5.6 %
== END 2021-12-31 08:26 | disposition home or self-care (01) ==
LOC: HO.10HDL 08:25
PROVIDERS: Visit Provider Physician Assistant
DX: I10 Essential (primary) hypertension (principal); E78.9 Disorder of lipoprotein metabolism, unspecified
CPT/HCPCS: 36415; 80053; 80061; 82043; 83036; 84443; 85027

== ENCOUNTER 2022-02-12 10:00 | Outpatient (RCR) | payer MEDICARE, MEDICAID, SELFPAY ==
--- NOTE | 2021-11-18 12:27 | MHC.PT.EP ---
[facility] [place] Office [place] Office [place] Office [address] Pankaj Lriiano [address] [phone] F: [phone] F: [phone] F: [phone] F: [phone] Physical Therapy Plan of Care Date of Evaluation: Date of Surgery: N/A Diagnosis: primary osteoarthritis, right shoulder Assessment: pt presents to physical therapy with pain, decreased range of motion, decreased strength, impaired functional mobility, impaired postural awareness, and gait deviations. pt is a good candidate for skilled PT due to age, potential remediation of impairments, typical disease/condition progression and prognosis, comorbidities, and motivation. pt would benefit from tailored strengthening and stretching exercise program, functional training, gait training, postural re-training, neuromuscular re-education, modalities as needed for pain, equipment safety demonstration. Frequency and Duration: The patient will be seen 2x/wk for 6 wks Short Term Goals: pt will be I w/ HEP to promote self-management of condition. pt will improve R shoulder flexion by 10 degrees to promote ease in reaching for objects on higher shelves. Residential Goals: pt will report a statistically significant improvement in self-reported outcome measure, SPADI, to promote return to PLOF. pt will perform unilateral carry of 10# in R UE x15' to promote return to carrying groceries. Treatment Plan: Modalities to reduce pain, spasms and effusion. Manual therapy to restore motion and function. Therapeutic exercise to improve strength and flexibility. Neuromuscular re-education for posture and balance. Therapeutic activities to return to functional activities of daily living. Electronically signed by: Leslie Escobar PT, DPT Please sign and return to therapist. Thank you for your referral.
--- NOTE | 2022-02-13 08:29 | MHC.PT.DC ---
[facility] [place] Office [place] Office [place] Office [address] Pankaj Liriano [address] [phone] F: [phone] F: [phone] F: [phone] F: [phone] Physical Therapy Discharge Report Diagnosis: primary osteoarthritis, right shoulder Date of Surgery: N/A Date of Evaluation: 11/18/21 Date of Discharge: 02/13/22 Treatments to Date: 19 Cancellations to Date: 3 No Shows to Date: 1 Discharge Status: Independent with HEP Discharge Summary: The patient is independent with his home exercise program. He reports no change in his pain; however, he has been dealing with poor glenohumeral mechanics since a fracture approximately 40 years ago. He had poor carryover with education in physical therapy. He has plateaued and is being discharged to his HEP. He stated he had some interest in joining a gym to maintain the strength gains he made in therapy. Electronically signed by: Leslie Escobar PT, DPT Please sign and return to therapist. Thank you for your referral.
== END 2022-02-13 08:30 | disposition home or self-care (01) ==
LOC: HO.PT 10:00
PROVIDERS: PCP Physician Assistant; Visit Provider Physician Assistant
DX: M19.011 Primary osteoarthritis, right shoulder (principal)
CPT/HCPCS: 97110; 97140; 97162; 97164; 97530

== ENCOUNTER 2022-03-03 14:31 | Outpatient (REF) | payer MEDICARE, MEDICAID, SELFPAY ==
[2022-03-03 14:47] LABS: MANUAL DIFF FLAG NO
[2022-03-03 15:10] LABS: Basophils Percent Auto 0.3 % (0-2); Eosinophils Absolute Auto 0.2 X10*3/uL (0.0-0.4); Eosinophils Percent Auto 2.2 % (0-4); Hematocrit 41.4 % (42.0-52.0); Hemoglobin 13.4 g/dl (14.0-18.0); Imm Gran Abs Auto 0.02 X10*3/uL (0.00-0.03); Imm Gran Pct Auto 0.3 % (0.0-0.4); Lymphocytes Percent Auto 28.4 % (20-40); Mean Corpuscular HGB Conc 32.4 g/dl (31.0-36.0); Mean Corpuscular Hemoglobin 30.3 pg (27.0-33.0); Mean Corpuscular Volume 93.7 fL (80.0-98.0); Mean Platelet Volume 10.6 fL (9.4-12.4); Monocytes Absolute Auto 0.6 X10*3/uL (0.1-1.2); Monocytes Percent Auto 8.7 % (2-11); Neutrophils Absolute Auto 4.3 x10*3/uL (2.0-8.3); Neutrophils Percent Auto 60.1 % (45-73); Platelet Count 165 X10*3/uL (160-400); Red Blood Count 4.42 X10*6/uL (4.60-5.80); Red Cell Distribution Width 13.3 % (11.0-16.0); White Blood Count 7.2 X10*3/uL (4.8-10.8)
[2022-03-03 15:30] LABS: Alanine Aminotransferase 18 U/L (0-40); Albumin Level 4.3 g/dL (3.5-5.0); Alkaline Phosphatase 95 U/L (39-117); Anion Gap 11 (12-20); Aspartate Amino Transferase 23 U/L (5-37); Bilirubin Total 0.7 mg/dL (0.0-1.0); Blood Urea Nitrogen 13 mg/dL (9-16); Calcium 8.7 mg/dL (8.4-10.2); Carbon Dioxide 25 mmol/L (22-29); Chloride 108 mmol/L (96-108); Cholesterol 190 mg/dL; Estimated Glomerular Filt Rate > 60; Glucose Random 91 mg/dL (60-115); HDL Cholesterol 41 mg/dL; LDL Cholesterol Calculated 134 mg/dl; Potassium 4.2 mmol/L (3.3-5.1); Sodium 140 mmol/L (135-145); Total Protein 7.1 g/dL (6.5-8.0); Triglycerides 79 mg/dL
[2022-03-03 15:52] LABS: Prostate Specific Antigen 0.24 ng/mL (<0.05-4.0)
== END 2022-03-03 14:32 | disposition home or self-care (01) ==
LOC: HO.LAB 14:31
PROVIDERS: PCP Physician Assistant; Visit Provider Internal Medicine Medical Oncology
DX: C61 Malignant neoplasm of prostate (principal); E66.3 Overweight; N40.0 Benign prostatic hyperplasia without lower urinary tract symptoms; Z12.5 Encounter for screening for malignant neoplasm of prostate
CPT/HCPCS: 36415; 80053; 80061; 84153; 85025

== ENCOUNTER 2022-03-25 11:05 | Outpatient (REF) | payer MEDICARE, MEDICAID, SELFPAY ==
[2022-03-25 14:23] LABS: Prostate Specific Antigen 0.21 ng/mL (<0.05-4.0)
[2022-04-01 12:56] LABS: Testosterone, Total 448 ng/dL (250-1100)
== END 2022-03-25 11:06 | disposition home or self-care (01) ==
LOC: HO.10HDL 11:05
PROVIDERS: Visit Provider Urology
DX: Z12.5 Encounter for screening for malignant neoplasm of prostate (principal); C61 Malignant neoplasm of prostate; C79.51 Secondary malignant neoplasm of bone
CPT/HCPCS: 36415; 84153; 84403

== ENCOUNTER → 2022-04-03 08:23 | Outpatient (BNVA) | payer MEDICARE, MEDICAID, SELFPAY | PROVIDERS: PCP Physician Assistant; Visit Provider Urology | DX: E29.1 Testicular hypofunction (principal); C61 Malignant neoplasm of prostate; C79.51 Secondary malignant neoplasm of bone | CPT/HCPCS: 99212 ==

== ENCOUNTER → 2022-05-13 12:07 | Outpatient (BNVA) | payer MEDICARE, MEDICAID, SELFPAY | PROVIDERS: PCP Physician Assistant; Referring Provider Physician Assistant; Visit Provider Internal Medicine Cardiovascular Disease | DX: I10 Essential (primary) hypertension (principal) | CPT/HCPCS: 93005; 99212 ==

== ENCOUNTER 2022-06-26 08:46 | Outpatient (REF) | payer MEDICARE, MEDICAID, SELFPAY ==
[2022-06-26 10:24] LABS: MANUAL DIFF FLAG NO
[2022-06-26 10:31] LABS: Basophils Percent Auto 0.4 % (0-2); Eosinophils Absolute Auto 0.2 X10*3/uL (0.0-0.4); Eosinophils Percent Auto 2.7 % (0-4); Hematocrit 41.2 % (42.0-52.0); Hemoglobin 13.5 g/dl (14.0-18.0); Imm Gran Abs Auto 0.01 X10*3/uL (0.00-0.03); Imm Gran Pct Auto 0.1 % (0.0-0.4); Lymphocytes Absolute Auto 2.1 X10*3/uL (1.2-4.9); Lymphocytes Percent Auto 31.9 % (20-40); Mean Corpuscular HGB Conc 32.8 g/dl (31.0-36.0); Mean Corpuscular Hemoglobin 30.8 pg (27.0-33.0); Mean Corpuscular Volume 93.8 fL (80.0-98.0); Mean Platelet Volume 10.8 fL (9.4-12.4); Monocytes Absolute Auto 0.6 X10*3/uL (0.1-1.2); Neutrophils Absolute Auto 3.7 x10*3/uL (2.0-8.3); Neutrophils Percent Auto 55.9 % (45-73); Platelet Count 155 X10*3/uL (160-400); Red Blood Count 4.39 X10*6/uL (4.60-5.80); Red Cell Distribution Width 13.1 % (11.0-16.0); White Blood Count 6.7 X10*3/uL (4.8-10.8)
[2022-06-26 10:42] LABS: Alanine Aminotransferase 15 U/L (0-40); Albumin Level 4.3 g/dL (3.5-5.0); Alkaline Phosphatase 94 U/L (39-117); Anion Gap 15 (12-20); Aspartate Amino Transferase 16 U/L (5-37); Bilirubin Total 0.3 mg/dL (0.0-1.0); Blood Urea Nitrogen 22 mg/dL (9-16); Calcium 9.2 mg/dL (8.4-10.2); Chloride 107 mmol/L (96-108); Cholesterol 190 mg/dL; Estimated Glomerular Filt Rate > 60; Glucose Fasting 101 mg/dL (60-99); HDL Cholesterol 41 mg/dL; LDL Cholesterol Calculated 132 mg/dl; Sodium 140 mmol/L (135-145); Total Protein 6.9 g/dL (6.5-8.0); Triglycerides 86 mg/dL
[2022-06-26 10:47] LABS: Carbon Dioxide 22 mmol/L (22-29)
[2022-06-26 11:03] LABS: Prostate Specific Antigen 0.24 ng/mL (<0.05-4.0)
[2022-07-04 13:56] LABS: Testosterone, Total 471 ng/dL (250-1100)
== END 2022-06-26 08:47 | disposition home or self-care (01) ==
LOC: HO.10HDL 08:46
PROVIDERS: Visit Provider Internal Medicine Medical Oncology
DX: Z12.5 Encounter for screening for malignant neoplasm of prostate (principal); C61 Malignant neoplasm of prostate; N40.0 Benign prostatic hyperplasia without lower urinary tract symptoms
CPT/HCPCS: 36415; 80053; 80061; 84153; 84403; 85025

== ENCOUNTER 2022-09-23 07:38 | Outpatient (REF) | payer MEDICARE, MEDICAID, SELFPAY ==
[2022-09-23 11:40] LABS: Prostate Specific Antigen 0.32 ng/mL (<0.05-4.0)
[2022-10-02 11:04] LABS: Testosterone, Total 476 ng/dL (250-1100)
== END 2022-09-23 07:39 | disposition home or self-care (01) ==
LOC: HO.10HDL 07:38
PROVIDERS: Visit Provider Urology
DX: Z12.5 Encounter for screening for malignant neoplasm of prostate (principal); C61 Malignant neoplasm of prostate; C79.51 Secondary malignant neoplasm of bone; E29.1 Testicular hypofunction
CPT/HCPCS: 36415; 84153; 84403

== ENCOUNTER 2022-09-29 09:47 | Outpatient (REF) | payer MEDICARE, MEDICAID, SELFPAY ==
[2022-09-29 10:35] LABS: MANUAL DIFF FLAG NO
[2022-09-29 10:47] LABS: Basophils Percent Auto 0.5 % (0-2); Eosinophils Absolute Auto 0.2 X10*3/uL (0.0-0.4); Eosinophils Percent Auto 2.3 % (0-4); Hemoglobin 13.5 g/dl (14.0-18.0); Imm Gran Abs Auto 0.01 X10*3/uL (0.00-0.03); Imm Gran Pct Auto 0.2 % (0.0-0.4); Lymphocytes Absolute Auto 1.7 X10*3/uL (1.2-4.9); Lymphocytes Percent Auto 26.3 % (20-40); Mean Corpuscular HGB Conc 32.9 g/dl (31.0-36.0); Mean Corpuscular Hemoglobin 30.5 pg (27.0-33.0); Mean Corpuscular Volume 92.6 fL (80.0-98.0); Mean Platelet Volume 10.7 fL (9.4-12.4); Monocytes Absolute Auto 0.4 X10*3/uL (0.1-1.2); Monocytes Percent Auto 5.9 % (2-11); Neutrophils Absolute Auto 4.2 x10*3/uL (2.0-8.3); Neutrophils Percent Auto 64.8 % (45-73); Platelet Count 186 X10*3/uL (160-400); Red Blood Count 4.43 X10*6/uL (4.60-5.80); Red Cell Distribution Width 13.2 % (11.0-16.0); White Blood Count 6.5 X10*3/uL (4.8-10.8)
[2022-09-29 12:04] LABS: Alanine Aminotransferase 15 U/L (0-40); Albumin Level 4.2 g/dL (3.5-5.0); Alkaline Phosphatase 104 U/L (39-117); Anion Gap 10 (12-20); Aspartate Amino Transferase 14 U/L (5-37); Bilirubin Total 0.4 mg/dL (0.0-1.0); Blood Urea Nitrogen 19 mg/dL (9-16); Calcium 9.1 mg/dL (8.4-10.2); Carbon Dioxide 27 mmol/L (22-29); Chloride 107 mmol/L (96-108); Estimated Glomerular Filt Rate > 60; Glucose Random 167 mg/dL (60-115); Potassium 4.3 mmol/L (3.3-5.1); Sodium 140 mmol/L (135-145); Total Protein 6.7 g/dL (6.5-8.0)
[2022-09-29 12:06] LABS: Prostate Specific Antigen Scr 0.33 ng/mL (<0.05-4.0)
[2022-10-10 13:49] LABS: Testosterone, Total 425 ng/dL (250-1100)
== END 2022-09-29 09:48 | disposition home or self-care (01) ==
LOC: HO.10HDL 09:47
PROVIDERS: Visit Provider Internal Medicine Medical Oncology
DX: Z12.5 Encounter for screening for malignant neoplasm of prostate (principal); C61 Malignant neoplasm of prostate; N40.0 Benign prostatic hyperplasia without lower urinary tract symptoms
CPT/HCPCS: 36415; 80053; 84153; 84403; 85025

== ENCOUNTER → 2022-10-06 09:02 | Outpatient (BNVA) | payer MEDICARE, MEDICAID, SELFPAY | PROVIDERS: PCP Physician Assistant; Visit Provider Urology | DX: C61 Malignant neoplasm of prostate (principal); C79.51 Secondary malignant neoplasm of bone; E29.1 Testicular hypofunction | CPT/HCPCS: Q3014 ==

== ENCOUNTER 2022-11-21 05:41 | Emergency (ER) | payer MEDICARE, MEDICAID, SELFPAY ==
--- NOTE | ~2022-11-21 | CT_ITS ---
EXAMINATION: CT ABDOMEN AND PELVIS WITHOUT CONTRAST CLINICAL INFORMATION: Abdominal pain COMPARISON: CT abdomen 12/16/2015 TECHNIQUE: Multidetector volumetric imaging was performed from the superior aspect of the liver through the pubic symphysis. Sagittal and coronal reformatted images were obtained on the technologist's workstation. This CT examination was performed using dose optimization techniques as appropriate, variously including the following: *Automated exposure control *Adjustment of mA and/or kV according to patient size (this includes techniques or standardized protocols for targeted exams where dose is matched to indication/reason for exam; i.e. extremities or head) *Use of iterative reconstruction technique DLP: 607 mGy-cm FINDINGS: LUNG BASES: The visualized lung bases are unremarkable. LIVER, GALLBLADDER, AND BILIARY TREE: The liver is normal in size, shape, and attenuation. No focal hepatic lesion or biliary ductal dilatation is present. The gallbladder is unremarkable with no evidence of radiopaque gallstones, gallbladder wall thickening, or obvious pericholecystic inflammatory changes. PANCREAS: Mild atrophy, fatty changes. No acute inflammatory changes. No ductal dilatation. SPLEEN: Unremarkable. ADRENAL GLANDS: Unremarkable. KIDNEYS AND URETERS: The kidneys are normal in size, shape, and attenuation. No hydronephrosis, hydroureter, or calculi seen. No perinephric stranding. BLADDER: Unremarkable. GASTROINTESTINAL TRACT: No dilated bowel loops. Stomach is nondistended. Diverticulosis of the sigmoid and left colon. No findings suggest diverticulitis.. The appendix is unremarkable. No free fluid. No free air. ABDOMINAL WALL: No significant hernia is appreciated. LYMPH NODES: No pathologically enlarged lymph nodes are seen.. VASCULAR: Normal caliber aorta. PELVIC VISCERA: Status post prostatectomy. OSSEOUS STRUCTURES: Multilevel degenerative changes in the spine.. Chronic L3 Schmorl's node. Multilevel degenerative changes in the visualized spine. There is anterior bridging osteophytes in the thoracolumbar region. Bilateral hip arthritis. CT/CT abdomen pelvis wo IV con IMPRESSION: 1. Colonic diverticulosis without evidence of diverticulitis. 2. Status postcholecystectomy. 3. No acute intra-abdominal findings identified. 4. Additional findings and details as above. Fleischner guidelines were followed.
[2022-11-21 05:51] VITALS: BP 140/100; BP 147/70; PULSE 50; PULSE 55; RESP 14; TEMP 35.8; O2SAT 97; BMI 25.2
[2022-11-21] MEDS: Ondansetron ODT 4 MG TAB.RAPDIS SUBLINGUAL (06:24)
[2022-11-21 06:42] LABS: MANUAL DIFF FLAG NO
[2022-11-21 06:43] LABS: Basophils Percent Auto 0.2 % (0-2); Eosinophils Absolute Auto 0.1 X10*3/uL (0.0-0.4); Eosinophils Percent Auto 1.2 % (0-4); Hematocrit 41.1 % (42.0-52.0); Hemoglobin 13.7 g/dl (14.0-18.0); Imm Gran Abs Auto 0.04 X10*3/uL (0.00-0.03); Imm Gran Pct Auto 0.4 % (0.0-0.4); Lymphocytes Absolute Auto 1.2 X10*3/uL (1.2-4.9); Lymphocytes Percent Auto 11.4 % (20-40); Mean Corpuscular HGB Conc 33.3 g/dl (31.0-36.0); Mean Corpuscular Hemoglobin 30.4 pg (27.0-33.0); Mean Corpuscular Volume 91.1 fL (80.0-98.0); Mean Platelet Volume 9.9 fL (9.4-12.4); Monocytes Absolute Auto 0.5 X10*3/uL (0.1-1.2); Neutrophils Absolute Auto 8.9 x10*3/uL (2.0-8.3); Neutrophils Percent Auto 81.8 % (45-73); Platelet Count 166 X10*3/uL (160-400); Red Blood Count 4.51 X10*6/uL (4.60-5.80); Red Cell Distribution Width 13.1 % (11.0-16.0); White Blood Count 10.9 X10*3/uL (4.8-10.8)
[2022-11-21 07:24] VITALS: BP 142/63; PULSE 57; RESP 13; TEMP 36.6; O2SAT 97
[2022-11-21 07:41] LABS: Anion Gap 15 (12-20)
--- NOTE | 2022-11-21 07:41 | ED.NAVMDI ---
HPI - Nausea/Vomiting/Diarrhea General Chief complaint: Nausea/Vomiting/Diarrhea Stated complaint: VOMITING W/ABD PAIN PER EMS Time Seen by Provider: 11/21/22 07:34 Source: patient Mode of arrival: ambulatory Limitations: no limitations History of Present Illness HPI Narrative: This is 67 years old male presented to the emergency department complaining nausea vomiting since yesterday. Denies any chest pain shortness of breath fever MD elicited complaint: nausea and vomiting Onset (ago): day(s) (1) Description of vomiting: watery Description of diarrhea: watery Associated nausea: Yes Associated abdominal pain: No Location of pain: none Exacerbating factors: none Relieving factors: none Related Data Previous Rx's Medication Instructions Recorded omeprazole 20 mg capsule,delayed 20 mg PO DAILY 90 days #90 caps 03/03/22 release amlodipine 2.5 mg tablet 2.5 mg PO DAILY 90 days #90 tabs 09/01/22 cyclobenzaprine 10 mg tablet 10 mg PO BEDTIME PRN muscle spasm 11/03/22 30 days #30 tabs oxycodone-acetaminophen 5 mg-325 1 tab PO BID 30 days #60 tabs 11/03/22 mg tablet Allergies Allergy/AdvReac Type Severity Reaction Status Date / Time No Known Allergies Allergy Verified 10/06/22 09:02 Review of Systems Gastrointestinal: Gastrointestinal: Reports nausea and Reports vomiting PMFSH Past Medical History PMFSH Narrative: Prostate cancer Medical History Anxiety Prostate cancer metastatic to bone Surgical History H/O prostatectomy Family History Family History Father Pneumonia Substance abuse Mother CAD (coronary artery disease) CHF (congestive heart failure) Brother Stomach cancer Substance abuse Sister Breast cancer Substance abuse Social History Social History Housing: House Alcohol intake: never Patient Tobacco Use Status: Former Tobacco user Years Smoked: 40 yrs Smoked in Last 30 Days: No e-Cigarette/Vaping Use: Never Used Second Hand Smoke Exposure: No Substance Use Type: Marijuana Advance Directives: No Advance Directives Information Provided: Yes service: No Current occupational status: unemployed Current occupation: [employer] Cognitive needs: No Hearing needs: No Vision needs: No (Pt went to an eye doctor about 4 years ago. ) Physical Exam Vital Signs: Vital Signs: Last Vital Signs Temp 97.9 F 11/21/22 13:16 Pulse 55 11/21/22 13:16 Resp 12 11/21/22 13:16 BP 150/68 H 11/21/22 13:16 Pulse Ox 96 11/21/22 13:16 O2 Del Method Room Air 11/21/22 13:16 BMI result Body Mass Index 25.2 Const: General: cooperative Nutritional Appearance: well nourished Orientation/consciousness: patient oriented x3 HEENT: Head: Yes normal to inspection General nose exam: Normal external nose present Face and sinus: Yes normal facial exam Mouth: Normal oral and palatal mucosa present Neck: Neck: Yes normal visual inspection and Yes full ROM Chest: Chest palpation & inspection: normal inspection of the chest Resp: Effort & Inspection: normal respiratory effort Auscultation: clear to auscultation bilaterally Cardio: Jugular venous distension: no JVD Rate: regular rate Rhythm: regular rhythm GI: Inspection: Yes normal to inspection Palpation (GI): Soft to palpation, not firm and nontender Percussion: Yes normal to percussion Skin: General skin exam: no rashes or lesions noted and elasticity normal Lesions: no lesions Rashes: no rashes Neuro: General: patient oriented x3 Course Reevaluation(s) Reevaluation #1: Patient feels much better at this time a he wants to go home abdominal pain resolved , labs okay, is ambulating well with steady gait Time: 13:41 Medications Administered Discontinued Medications Generic Name Dose Route Start Last Admin Trade Name Freq PRN Reason Stop Dose Admin Sodium Chloride 1,000 mls @ 999 mls/hr 11/21/22 07:45 11/21/22 09:59 Ns IVCONT 11/21/22 08:45 Infused .Q1H1M HAYDEE Infusion Metoclopramide HCl 10 mg 11/21/22 07:40 11/21/22 08:05 Metoclopramide Hcl 10 Mg/2 Ml Vial IVPUSH 11/21/22 07:41 10 mg ONCE ONE Administration Ondansetron HCl 4 mg 11/21/22 06:18 11/21/22 06:24 Ondansetron Odt 4 Mg Tab.Rapdis SUBLINGUAL 11/21/22 06:19 4 mg ONCE ONE Administration Medical Decision Making Medical Decision Making [facility] Narrative: Patient presented with nausea vomiting we get the labs will give antiemetic fluids and reassess Differential Diagnosis Differential Diagnoses: The differential diagnosis associated with the presentation includes gastroenetritis/colitis/viral illness Admission/Observation Consideration of admission/observation: Escalation of care including admission/observation considered Lab Data MDM Lab Attestation statement: I reviewed the patient's lab results. 11/21/22 06:37 11/21/22 06:37 Labs: Lab Results 11/21/22 11/21/22 11/21/22 Range/Units 06:37 07:20 07:49 WBC 10.9 H (4.8-10.8) X10*3/uL RBC 4.51 L (4.60-5.80) X10*6/uL Hgb 13.7 L (14.0-18.0) g/dl Hct 41.1 L (42.0-52.0) % MCV 91.1 (80.0-98.0) fL MCH 30.4 (27.0-33.0) pg MCHC 33.3 (31.0-36.0) g/dl RDW 13.1 (11.0-16.0) % Plt Count 166 (160-400) X10*3/uL MPV 9.9 (9.4-12.4) fL Immature Gran % (Auto) 0.4 (0.0-0.4) % Neut % (Auto) 81.8 H (45-73) % Lymph % (Auto) 11.4 L (20-40) % Leslie % (Auto) 5.0 (2-11) % Eos % (Auto) 1.2 (0-4) % Baso % (Auto) 0.2 (0-2) % Lymph # (Auto) 1.2 (1.2-4.9) X10*3/uL Leslie # (Auto) 0.5 (0.1-1.2) X10*3/uL Eos # (Auto) 0.1 (0.0-0.4) X10*3/uL Baso # (Auto) 0.0 (0.0-0.2) X10*3/uL Abs Immat Gran (auto) 0.04 H (0.00-0.03) X10*3/uL Absolute Neuts (auto) 8.9 H (2.0-8.3) x10*3/uL Absolute Nucleated RBC 0.000 (0.0-0.012) X10*3/uL Nucleated RBC % (auto) 0.0 (0.0-0.2) /100WBC Sodium 143 (135-145) mmol/L Potassium 3.7 (3.3-5.1) mmol/L Chloride 104 (96-108) mmol/L Carbon Dioxide 28 (22-29) mmol/L Anion Gap 15 (12-20) BUN 16 (9-16) mg/dL Creatinine 0.75 (0.5-1.4) mg/dL Estim Creat Clear Calc 114.2 Estimated GFR > 60 Random Glucose 136 H (60-115) mg/dL Calcium 9.1 (8.4-10.2) mg/dL Total Bilirubin 0.5 (0.0-1.0) mg/dL AST 15 (5-37) U/L ALT 16 (0-40) U/L Alkaline Phosphatase 118 H (39-117) U/L Total Protein 7.0 (6.5-8.0) g/dL Albumin 4.3 (3.5-5.0) g/dL Urine Color Yellow Urine Appearance Clear Urine pH 7.0 (5.0-9.0) Ur Specific Wallace 1.020 (1.005-1.025) Urine Protein Negative (Neg-Trace) mg/dL Urine Glucose (UA) Negative (Negative) mg/dL Urine Ketones 15 (Negative) mg/dL Urine Blood Negative (Negative) Urine Nitrite Negative (Negative) Ur Leukocyte Esterase Negative (Negative) Radiology Impression Discussion of test interpretation with radiology: I have reviewed the radiologist's reading. Radiologist Impression: ?sigmoid and left colon. No findings suggest diverticulitis.. The appendix is unremarkable. No free fluid. No free air. ABDOMINAL WALL: No significant hernia is appreciated.? LYMPH NODES: No pathologically enlarged lymph nodes are seen.. VASCULAR: Normal caliber aorta. PELVIC VISCERA: Status post prostatectomy. OSSEOUS STRUCTURES: Multilevel degenerative changes in the spine.. Chronic L3 Schmorl's node. Multilevel degenerative changes in the visualized spine. There is anterior bridging osteophytes in the thoracolumbar region. Bilateral hip arthritis. CT/CT abdomen pelvis wo IV con IMPRESSION: ? 1. Colonic diverticulosis without evidence of diverticulitis. ? 2. Status postcholecystectomy. ? 3. No acute intra-abdominal findings identified. ? 4. Additional findings and details as above. ? Discharge Plan Discharge Clinical Impression: Vomiting Patient Disposition: Home, Self-Care Instructions: Acute Nausea and Vomiting (ED) Additional Instructions: Follow-up with your primary care physician return if you worse any concern stay liquid diet today Prescriptions: No Action omeprazole 20 mg capsule,delayed release(DR/EC) 20 mg PO DAILY 90 Days Qty: 90 1RF amlodipine 2.5 mg tablet 2.5 mg PO DAILY 90 Days Qty: 90 2RF cyclobenzaprine 10 mg tablet 10 mg PO BEDTIME PRN (Reason: muscle spasm) 30 Days Qty: 30 6RF oxycodone-acetaminophen 5-325 mg tablet 1 tab PO BID 30 Days Qty: 60 0RF Referrals: Physician,Unknown J [Primary Care Provider] - 2 days Interventions: ED Discharge Assessment Last Done: 11/21/22 14:12 Discharge Date/Time: 11/21/22 14:13
[2022-11-21 07:45] LABS: Alanine Aminotransferase 16 U/L (0-40); Albumin Level 4.3 g/dL (3.5-5.0); Alkaline Phosphatase 118 U/L (39-117); Aspartate Amino Transferase 15 U/L (5-37); Bilirubin Total 0.5 mg/dL (0.0-1.0); Blood Urea Nitrogen 16 mg/dL (9-16); Calcium 9.1 mg/dL (8.4-10.2); Carbon Dioxide 28 mmol/L (22-29); Chloride 104 mmol/L (96-108); Creatinine Clr Calc Pharmacy 114.2; Estimated Glomerular Filt Rate > 60; Glucose Random 136 mg/dL (60-115); Potassium 3.7 mmol/L (3.3-5.1); Sodium 143 mmol/L (135-145)
[2022-11-21] MEDS: Metoclopramide HCl 10 MG/2 ML VIAL IVPUSH (08:05)
[2022-11-21] MEDS: 0.9 % Sodium Chloride 1,000 ML 999 ML IVCONT (08:05)
[2022-11-21 08:22] LABS: Appearance Urine Clear; Color Urine Yellow; Glucose Urine UA Negative (Negative); Leukocyte Esterase Urine Negative (Negative); Nitrite Urine Negative (Negative); Urine Blood Negative (Negative); Urine Ketones 15 mg/dL (Negative); Urine Protein Negative (Neg-Trace)
[2022-11-21 10:07] VITALS: BP 139/69; PULSE 67; RESP 16; O2SAT 97
[2022-11-21 13:16] VITALS: BP 150/68; PULSE 55; RESP 12; TEMP 36.6; O2SAT 96
== END 2022-11-21 14:13 | disposition home or self-care (01) ==
PROVIDERS: Emergency Provider Emergency Medicine
DX: R11.2 Nausea with vomiting, unspecified (principal); F41.9 Anxiety disorder, unspecified; C61 Malignant neoplasm of prostate; C79.51 Secondary malignant neoplasm of bone; F12.90 Cannabis use, unspecified, uncomplicated; Z87.891 Personal history of nicotine dependence
CPT/HCPCS: 36415; 74176; 80053; 81003; 85025; 96361; 96374; 96375; 99284; J2765

== ENCOUNTER → 2022-11-26 09:35 | Outpatient (BNVA) | payer MEDICARE, MEDICAID, SELFPAY | PROVIDERS: PCP Physician Assistant; Referring Provider Physician Assistant; Visit Provider Internal Medicine Cardiovascular Disease | DX: I10 Essential (primary) hypertension (principal); R06.09 Other forms of dyspnea | CPT/HCPCS: 99212 ==

== ENCOUNTER → 2022-12-04 07:49 | Outpatient (REF) | payer MEDICARE, MEDICAID, SELFPAY ==
--- NOTE | 2022-12-04 07:56 | CA_ITS ---
Acquisition Time: 2022-12-04 08:00:15 Total Exercise Time: 00:06:00 Test Indications: Dyspnea Medications: AMLODIPINE CYCLOBENZAPRINE OMEPRAZOLE Protocol: RENZO Max HR: 146 BPM 95% of Pred: 153 BPM Max BP: 228/068 mmHG Max Work Load: 7.0 METS Exercise stress test with exercise 6 min of Renzo protocol, achieving 95% MPHR, with need to stop exercise due to elevated BP reading, without anginal symptoms, with isolated PVC, with hypertensive response to exercise ( resting BP 158/80 and francesco to 228/68 with exercise), without EKG changes meeting criteria for ischemia. In recovery BP came down to 152/78. He did take his Amlodipine this am. Test reviewed with Dr Santos. Referred By: Dillan Santos Overread By: BC TARANGO
== END ==
LOC: HO.CARD 07:49
PROVIDERS: PCP Physician Assistant; Visit Provider Internal Medicine Cardiovascular Disease
DX: R06.09 Other forms of dyspnea (principal)
CPT/HCPCS: 93017

== ENCOUNTER 2022-12-15 09:18 | Outpatient (REF) | payer MEDICARE, MEDICAID, SELFPAY ==
[2022-12-15 10:30] LABS: Hematocrit 41.7 % (42.0-52.0); Hemoglobin 13.7 g/dl (14.0-18.0); Mean Corpuscular HGB Conc 32.9 g/dl (31.0-36.0); Mean Corpuscular Hemoglobin 30.4 pg (27.0-33.0); Mean Corpuscular Volume 92.7 fL (80.0-98.0); Mean Platelet Volume 10.2 fL (9.4-12.4); Platelet Count 187 X10*3/uL (160-400); Red Cell Distribution Width 13.5 % (11.0-16.0)
[2022-12-15 11:01] LABS: Creatinine Urine 120.66 mg/dL; Microalbum/Creatinine Ratio Ur 5.8 ug/mg cr
[2022-12-15 11:12] LABS: Alanine Aminotransferase 18 U/L (0-40); Albumin Level 4.3 g/dL (3.5-5.0); Alkaline Phosphatase 107 U/L (39-117); Anion Gap 12 (12-20); Aspartate Amino Transferase 16 U/L (5-37); Bilirubin Total 0.4 mg/dL (0.0-1.0); Blood Urea Nitrogen 17 mg/dL (9-16); Calcium 9.1 mg/dL (8.4-10.2); Carbon Dioxide 25 mmol/L (22-29); Chloride 108 mmol/L (96-108); Cholesterol 207 mg/dL; Estimated Glomerular Filt Rate > 60; Glucose Fasting 96 mg/dL (60-99); HDL Cholesterol 40 mg/dL; LDL Cholesterol Calculated 153 mg/dl; Potassium 4.1 mmol/L (3.3-5.1); Sodium 141 mmol/L (135-145); Total Protein 6.9 g/dL (6.5-8.0); Triglycerides 72 mg/dL
[2022-12-15 11:24] LABS: TSH reflex Free T4 1.66 uIU/mL (0.32-4.0)
[2022-12-15 11:30] LABS: Prostate Specific Antigen 0.41 ng/mL (<0.05-4.0)
[2022-12-21 15:19] LABS: Testosterone, Total 481 ng/dL (250-1100)
== END 2022-12-15 09:19 | disposition home or self-care (01) ==
LOC: HO.LAB 09:18
PROVIDERS: Urology; PCP Physician Assistant; Visit Provider Internal Medicine Cardiovascular Disease
DX: Z12.5 Encounter for screening for malignant neoplasm of prostate (principal); C61 Malignant neoplasm of prostate; C79.51 Secondary malignant neoplasm of bone; I10 Essential (primary) hypertension; E78.9 Disorder of lipoprotein metabolism, unspecified
CPT/HCPCS: 36415; 80053; 80061; 82043; 84153; 84403; 84443; 85027

== ENCOUNTER → 2022-12-21 09:18 | Outpatient (BNVA) | payer MEDICARE, MEDICAID, SELFPAY | PROVIDERS: PCP Physician Assistant; Referring Provider Physician Assistant; Visit Provider Internal Medicine Cardiovascular Disease | DX: Z01.30 Encounter for examination of blood pressure without abnormal findings (principal) | CPT/HCPCS: 99211 ==

== ENCOUNTER 2022-12-31 11:12 | Outpatient (REF) | payer MEDICARE, MEDICAID, SELFPAY ==
[2022-12-31 11:23] LABS: MANUAL DIFF FLAG NO
[2022-12-31 11:55] LABS: Basophils Percent Auto 0.3 % (0-2); Eosinophils Absolute Auto 0.2 X10*3/uL (0.0-0.4); Eosinophils Percent Auto 2.8 % (0-4); Hematocrit 43.3 % (42.0-52.0); Hemoglobin 14.2 g/dl (14.0-18.0); Imm Gran Abs Auto 0.01 X10*3/uL (0.00-0.03); Imm Gran Pct Auto 0.2 % (0.0-0.4); Lymphocytes Absolute Auto 2.1 X10*3/uL (1.2-4.9); Lymphocytes Percent Auto 31.9 % (20-40); Mean Corpuscular HGB Conc 32.8 g/dl (31.0-36.0); Mean Corpuscular Hemoglobin 30.2 pg (27.0-33.0); Mean Corpuscular Volume 92.1 fL (80.0-98.0); Monocytes Absolute Auto 0.6 X10*3/uL (0.1-1.2); Neutrophils Absolute Auto 3.6 x10*3/uL (2.0-8.3); Neutrophils Percent Auto 55.8 % (45-73); Platelet Count 196 X10*3/uL (160-400); Red Cell Distribution Width 13.4 % (11.0-16.0); White Blood Count 6.5 X10*3/uL (4.8-10.8)
[2022-12-31 12:46] LABS: Alanine Aminotransferase 14 U/L (0-40); Albumin Level 4.3 g/dL (3.5-5.0); Alkaline Phosphatase 116 U/L (39-117); Anion Gap 12 (12-20); Aspartate Amino Transferase 15 U/L (5-37); Bilirubin Total 0.6 mg/dL (0.0-1.0); Blood Urea Nitrogen 14 mg/dL (9-16); Calcium 9.4 mg/dL (8.4-10.2); Carbon Dioxide 25 mmol/L (22-29); Chloride 107 mmol/L (96-108); Estimated Glomerular Filt Rate > 60; Glucose Random 99 mg/dL (60-115); Potassium 4.4 mmol/L (3.3-5.1); Sodium 140 mmol/L (135-145); Total Protein 7.1 g/dL (6.5-8.0)
[2022-12-31 13:03] LABS: Prostate Specific Antigen 0.45 ng/mL (<0.05-4.0)
== END 2022-12-31 11:13 | disposition home or self-care (01) ==
LOC: HO.XRAY 11:12
PROVIDERS: PCP Physician Assistant; Visit Provider Internal Medicine Medical Oncology
DX: Z12.5 Encounter for screening for malignant neoplasm of prostate (principal); C61 Malignant neoplasm of prostate; R73.9 Hyperglycemia, unspecified; M54.50 Low back pain, unspecified; R07.81 Pleurodynia
CPT/HCPCS: 36415; 80053; 84153; 85025

== ENCOUNTER 2023-01-01 09:34 | Outpatient (REF) | payer MEDICARE, MEDICAID, SELFPAY ==
--- NOTE | ~2023-01-01 | XR_ITS ---
EXAMINATION: XR LUMBOSACRAL SPINE WITH OBLIQUES CLINICAL INFORMATION: Low back pain, prostate carcinoma COMPARISON: 03/15/2019 TECHNIQUE: AP, both oblique, and lateral views of the lumbar spine. Lateral view of the lumbosacral junction. FINDINGS: Examination of the lumbar spine again demonstrates anterior and bilateral osteophyte and enthesophyte formation. Mild degenerative disc disease is present throughout the lumbar spine. Vertebral body height is preserved. There are no suspicious bone lesions. The bony sacrum and sacroiliac joints appear unremarkable. XR/XR lumbar spine 4V min IMPRESSION: Degenerative and proliferative changes in the lumbar spine, but no significant change since 03/15/2019.
--- NOTE | ~2023-01-01 | XR_ITS ---
EXAMINATION: XR RIBS, BILATERAL CLINICAL INFORMATION: Prostate cancer with pain. COMPARISON: None available. TECHNIQUE: 3 views of the bilateral ribs were obtained. FINDINGS: Lungs are clear. No consolidation, pneumothorax, or pleural effusion. The cardiomediastinal silhouette and pulmonary vasculature are normal. Osseous structures are unremarkable. Ribs are intact. No fractures are identified. XR/XR ribs BI min 4V w CXR1V IMPRESSION: Unremarkable examination. Specifically, no overt evidence for osseous metastatic disease.
== END 2023-01-01 09:35 | disposition home or self-care (01) ==
LOC: HO.XRAY 09:34
PROVIDERS: PCP Internal Medicine Medical Oncology; Visit Provider Internal Medicine Medical Oncology
DX: M25.50 Pain in unspecified joint (principal); C61 Malignant neoplasm of prostate; R07.81 Pleurodynia
CPT/HCPCS: 71111; 72110

== ENCOUNTER 2023-01-05 13:24 | Outpatient (REF) | payer MEDICARE, MEDICAID, SELFPAY ==
--- NOTE | ~2023-01-05 | MM_ITS ---
EXAMINATION: BONE DENSITOMETRY CLINICAL INDICATION: Encounter for screening for osteoporosis. COMPARISON: Previous BD dated 04/09/2020 and baseline BD dated 01/07/2012. TECHNIQUE: Using a [employer] DXA System (software version: 13.1) manufactured by [employer], dual-energy x-ray absorptiometry was performed of the lumbar spine and left hip. The images are of good technical quality. Summary results are attached. FINDINGS: AP SPINE L1-L3 (excluding L4): The data of L1-L4 has been changed to exclude the L4 vertebral body, because degenerative changes at this level may cause overestimation of lumbar spine density. Current: BMD 1.123 g/cm2, Z-score -0.7, T-score -0.7, normal, 0.7% increase from previous, 10.0% increase from baseline (<5% change is not significant). Prior: BMD 1.115 g/cm2. Baseline: BMD 1.021 g/cm2. LEFT FEMUR, NECK: Current: BMD 0.917 g/cm2, Z-score -0.3, T-score -1.2, osteopenia. Prior: BMD 0.944 g/cm2. Baseline: BMD 0.931 g/cm2. LEFT FEMUR, TOTAL: Current: BMD 0.930 g/cm2, Z-score -0.8, T-score -1.2, osteopenia, 2.2% decrease from previous, 4.0% decrease from baseline (<5% change is not significant). Prior: BMD 0.951 g/cm2. Baseline: BMD 0.969 g/cm2. IDENTIFIED RISK FACTORS: Rheumatoid arthritis, history of fracture (adult), secondary osteoporosis. HISTORY OF FRACTURE: Extremities. MEDICATIONS: None listed. MM/XR DEXA axial skeleton IMPRESSION: 1. DIAGNOSIS: Osteopenia based on the lowest T-score value of -1.2 in the femoral neck and total femur applying World Health Organization criteria. 2. 10-YEAR FRACTURE RISK PREDICTION, FRAX: Major osteoporotic fracture (clinical spine, forearm, hip or shoulder) 12.4%. Hip fracture 2.0%. 3. Treatment Recommendations: NOF guidelines recommend consideration for treatment in postmenopausal women and men age 50 and older presenting with the following: -A hip or vertebral (clinical or morphometric) fracture. -T-score less than or equal to -2.5 at the femoral neck or spine after appropriate evaluation to exclude secondary causes. -Low bone mass at the hip or spine and a 10-year fracture probability by FRAX of greater than or equal to 3% for hip fracture or greater than or equal to 20% for major osteoporotic fracture based on the [place] adapted WHO algorithm. 4. Other Recommendations: All treatment decisions require clinical judgment and consideration of individual patient factors, including patient preferences, comorbidities, previous drug use, risk factors not captured in the FRAX model (e.g. frailty, falls, vitamin D deficiency, increased bone turnover, interval significant decline in bone density) and possible under or overestimation of fracture risk by FRAX. Additional medical evaluation for secondary cause of low bone mineral density may be appropriate. FUTURE SCAN RECOMMENDATION: People with diagnosed cases of osteoporosis or at high risk for fracture should have regular bone mineral density tests. For patients eligible for Medicare, routine testing is allowed once every 2 years. The testing frequency can be increased to one year for patients who have rapidly progressing disease, those who are receiving or discontinuing medical therapy to restore bone mass, or have additional risk factors.
== END 2023-01-05 13:25 | disposition home or self-care (01) ==
LOC: HO.MAMMO 13:24
PROVIDERS: PCP Physician Assistant; Visit Provider Internal Medicine Medical Oncology
DX: Z13.820 Encounter for screening for osteoporosis (principal); C61 Malignant neoplasm of prostate; R07.81 Pleurodynia; M54.89 Other dorsalgia; M85.852 Other specified disorders of bone density and structure, left thigh; M06.9 Rheumatoid arthritis, unspecified; Z87.81 Personal history of (healed) traumatic fracture
CPT/HCPCS: 77080

== ENCOUNTER → 2023-01-12 10:50 | Outpatient (REF) | payer MEDICARE, MEDICAID, SELFPAY ==
--- NOTE | ~2023-01-12 | NM_ITS ---
EXAMINATION: NM BONE SCAN OF THE WHOLE BODY CLINICAL INFORMATION: Secondary malignant neoplasm of bone. COMPARISON: CT abdomen and pelvis without IV contrast 11/21/2022. TECHNIQUE: Multiple gamma scintillation camera images of the whole body were performed 3 hours following the intravenous administration of 31 mCi Tc-99m MDP. FINDINGS: In the head, no abnormal uptake. In the thoracic cage and upper extremities, moderate to significant focal activity left anterior 5th costochondral junction and right posterior 8th rib. Mild tracer activity seen in bilateral shoulder joints, before meals and sternoclavicular joints. In the spine, mild activity seen at the L4-L5 and right T12 and left T11 vertebra likely degenerative changes. Mild increased activity is also is visualized T5-T7 right vertebra, nonspecific and may represent facet joint arthropathy. In the pelvis, none. In the lower extremities, mild focal activity seen in right ankle joint and bilateral mid midfoot likely degenerative arthritis. Mild increased activity is also seen in bilateral knee joints. No other definite bony abnormalities are noted. The urinary bladder and faint visualization of both kidneys are noted. NM/NM bone scan whole body IMPRESSION: Mild focal activity along the right posterior 8t rib and left anterior 5th costochondral junction. These could be related to trauma. Metastatic disease cannot be excluded. Nonspecific activity in the thoracic and lumbar spine may represent degenerative arthritis. Not typical of metastatic disease. Mild degenerative arthritic changes in bilateral knee joints and bilateral foot.
== END ==
LOC: HO.NUCMED 10:50
PROVIDERS: PCP Physician Assistant; Visit Provider Urology
DX: C61 Malignant neoplasm of prostate (principal); C79.51 Secondary malignant neoplasm of bone
CPT/HCPCS: 78306; A9503

== ENCOUNTER 2023-02-01 05:49 | Inpatient (IN) | payer MEDICARE, MEDICAID, SELFPAY ==
--- NOTE | ~2023-02-01 | CT_ITS ---
EXAMINATION: CT abdomen pelvis w IV con, CT angio chest PE protocol CLINICAL INFORMATION: Reason for Exam black emesis, RUQ/R flank pain COMPARISON: 05/29/2020 TECHNIQUE: Prior to contrast administration, noncontrast localization images were obtained. Subsequently, multidetector volumetric imaging was performed from the thoracic inlet to below the pubic symphysis following the administration of 80 mL Omnipaque 350 intravenous contrast. No contrast reaction reported Sagittal, coronal, and MIP oblique sagittal reformatted images were obtained on the CT workstation, uploaded to PACS, and reviewed. This CT examination was performed using dose optimization techniques as appropriate, variously including the following: * Automated exposure control * Adjustment of mA and/or kV according to patient size (this includes techniques or standardized protocols for targeted exams where dose is matched to indication/reason for exam; i.e. extremities or head) Use of iterative reconstruction technique Total exam dose-length product 654 mGy-cm FINDINGS: QUALITY OF STUDY/CONTRAST BOLUS: Satisfactory. PULMONARY ARTERIES: No central or segmental pulmonary emboli. THORACIC AORTA: No aneurysm or dissection. LUNG: No focal consolidation, nodules or masses. PLEURA: There is pleural thickening along the posterior, medial chest adjacent to the rib cage and thoracic spine, associated with abnormalities in the rib cage MEDIASTINUM: Normal heart size. No pericardial effusion. No hilar or mediastinal lymphadenopathy. No evidence of septal bowing or right heart strain. CHEST WALL/AXILLA: There is pleural thickening adjacent to a rib #7 on the right with destructive lesion of the posterior aspect of this rib #7 with suspected linear irregular fracture along the paraspinal line. ABDOMEN/PELVIS: LIVER, GALLBLADDER, BILIARY TREE: The liver is normal in size, shape, and attenuation. No focal hepatic lesion or biliary ductal dilatation is present. The gallbladder is unremarkable with no evidence of radiopaque gallstones, gallbladder wall thickening, or pericholecystic inflammatory changes. PANCREAS: Normal; no mass or surrounding fluid. SPLEEN: Normal size. No focal lesion. ADRENAL GLANDS: Normal; no mass. KIDNEYS AND URETERS: The kidneys are normal in size, shape, and attenuation. No hydronephrosis, hydroureter or calculi seen. No perinephric stranding. BLADDER: No focal mass or wall thickening seen. No bladder calculi. PELVIC VISCERA: Patient is status post prostatectomy with postsurgical luz. GASTROINTESTINAL TRACT: The stomach and small bowel appear unremarkable. No dilated loops of bowel or evidence of obstruction. No colonic wall thickening or adjacent inflammatory changes. The appendix is not clearly seen. There is circumferential thickening of the distal esophagus, evaluate clinically PERITONEAL SPACE: No free air or free fluid identified. ABDOMINAL WALL: No significant hernia is appreciated. LYMPHOVASCULAR STRUCTURES: Lymph nodes: Normal. Vascular: The aorta is normal in caliber. OSSEOUS STRUCTURES: The described there is lesion with questionable fracture in rib #7 on the right adjacent to paraspinal line CT/CT abdomen pelvis w IV con IMPRESSION: 1. No evidence of pulmonary embolism. 2. Pleural thickening adjacent to the rib cage on the right with destructive lesion of the posterior aspect of rib #7 with suspected fracture along the paraspinal line. Correlate with history. 3. Circumferential thickening of the distal esophagus, correlate clinically. 4. Status post prostatectomy. VTE: negative. Kathy Mckeon DO [employer]
--- NOTE | ~2023-02-01 | XR_ITS ---
EXAMINATION: XR CHEST CLINICAL INFORMATION: Rib pain COMPARISON: Chest and bilateral ribs 01/01/2023 TECHNIQUE: Frontal view of the chest was obtained. FINDINGS: The lungs are clear and there is no pneumothorax, pleural reaction, airspace consolidation, groundglass opacity. The no pleural reaction or effusion. The costophrenic sulci are clear. The heart is normal in size. The hilar and mediastinal contours and visualized bony structures are unremarkable. XR/XR chest 1V IMPRESSION: Unremarkable examination.
--- NOTE | ~2023-02-01 | US_ITS ---
EXAMINATION: US ABDOMEN LIMITED CLINICAL INFORMATION: Right upper quadrant pain. COMPARISON: CT abdomen/pelvis 11/21/2022 TECHNIQUE: Real-time imaging of the right upper quadrant abdominal viscera. FINDINGS: PANCREAS: Obscured. LIVER: The liver is normal in size. The liver contour is normal. There is diffuse increased liver parenchymal echogenicity, consistent with hepatic steatosis. No focal hepatic lesion. There is no intrahepatic biliary duct dilatation seen. GALLBLADDER: The gallbladder is physiologically distended without evidence of stones, sludge, polyps, wall thickening or pericholecystic fluid. COMMON BILE DUCT: Normal in caliber measuring 0.4 cm in diameter. RIGHT KIDNEY: No hydronephrosis. No renal calculi or focal parenchymal lesions. The kidney measures 11.4 cm in maximum dimension. FREE FLUID: None. US/US abdomen limited IMPRESSION: Hepatic steatosis.
[2023-02-01 06:14] VITALS: BP 149/81; PULSE 84; RESP 18; TEMP 36.8; O2SAT 98; BMI 23.7
[2023-02-01 06:26] LABS: Basophils Percent Auto 0.1 % (0-2); Eosinophils Percent Auto 0.1 % (0-4); Hematocrit 43.9 % (42.0-52.0); Imm Gran Abs Auto 0.04 X10*3/uL (0.00-0.03); Imm Gran Pct Auto 0.3 % (0.0-0.4); Lymphocytes Absolute Auto 0.9 X10*3/uL (1.2-4.9); Lymphocytes Percent Auto 7.2 % (20-40); MANUAL DIFF FLAG NO; Mean Corpuscular HGB Conc 34.2 g/dl (31.0-36.0); Mean Corpuscular Hemoglobin 30.1 pg (27.0-33.0); Mean Platelet Volume 9.7 fL (9.4-12.4); Monocytes Absolute Auto 0.6 X10*3/uL (0.1-1.2); Monocytes Percent Auto 4.6 % (2-11); Neutrophils Absolute Auto 11.2 x10*3/uL (2.0-8.3); Neutrophils Percent Auto 87.7 % (45-73); Platelet Count 195 X10*3/uL (160-400); Red Blood Count 4.99 X10*6/uL (4.60-5.80); Red Cell Distribution Width 13.2 % (11.0-16.0); White Blood Count 12.7 X10*3/uL (4.8-10.8)
[2023-02-01 06:28] LABS: Appearance Urine Clear; Color Urine Yellow; Glucose Urine UA Negative (Negative); Leukocyte Esterase Urine Negative (Negative); Nitrite Urine Negative (Negative); PH 5.5 (5.0-9.0); Specific Gravity - Urine >= 1.030 (1.005-1.025); UMIC TRIGGER UACC YES; Urine Blood Small (1+) (Negative); Urine Ketones 80 mg/dL (Negative); Urine Protein 30 (1+) mg/dL (Neg-Trace)
[2023-02-01 06:30] LABS: Bacteria Urine None Seen (None Seen); Hyaline Casts Urine 0-2 /LPF (0-2); Squamous Epithelial Cell Urine 0-2 /HPF (0-2); WBC Urine 0-5 /HPF (0-5)
[2023-02-01 06:40] LABS: Anion Gap 18 (12-20); Blood Urea Nitrogen 14 mg/dL (9-16); Calcium 9.5 mg/dL (8.4-10.2); Carbon Dioxide 20 mmol/L (22-29); Chloride 105 mmol/L (96-108); Creatinine Clr Calc Pharmacy 112.7; Estimated Glomerular Filt Rate > 60; Glucose Random 145 mg/dL (60-115); Potassium 3.5 mmol/L (3.3-5.1); Sodium 139 mmol/L (135-145)
--- NOTE | 2023-02-01 08:02 | ED_ITS ---
HPI - General Adult General Chief complaint: Abdominal Pain Stated complaint: side pain, n/v, stomach pain Time Seen by Provider: 02/01/23 07:30 Source: patient, RN notes reviewed and old records reviewed Mode of arrival: ambulatory History of Present Illness HPI narrative: 67-year-old male with a past medical history of anxiety, HLD, HTN, prostate CA not currently on chemotherapy/radiation, hypogonadism, presenting to the ED complaining of right-sided posterior lateral rib pain radiating to RUQ x2 days with associated nausea and vomiting. Admits to increasing epigastric abdominal pain radiating up chest with dark emesis, black stools, and urinary frequency. Also reports SOB, pain worse with movement and deep breathing. Denies currently being on anticoagulation, recent travel, history of clots, cigarette smoking, dysuria Onset (ago): day(s) Related Data Previous Rx's Medication Instructions Recorded omeprazole 20 mg capsule,delayed 20 mg PO DAILY 90 days #90 caps 03/03/22 release amlodipine 2.5 mg tablet 5 mg PO DAILY 90 days #180 tabs 12/21/22 atorvastatin 40 mg tablet 40 mg PO BEDTIME #60 tabs 12/21/22 cyclobenzaprine 10 mg tablet 10 mg PO BEDTIME PRN muscle spasm 01/04/23 30 days #30 tabs oxycodone-acetaminophen 5 mg-325 1 tab PO BID 30 days #60 tabs 01/04/23 mg tablet Allergies Allergy/AdvReac Type Severity Reaction Status Date / Time [id number] Reductase AdvReac Intermediate Joint and Verified 01/21/23 09:16 Inhibitor muscle pain Review of Systems Review of Systems: Constitutional: No Fever, No Chills, No Fatigue, No Malaise ENT/Mouth: No Hearing loss, No Ear Pain, No Nasal Congestion, No Sinus Pain, No Hoarseness, No sore throat, No Rhinorrhea, No Swallowing Difficulty Eyes: No Eye Pain, No Swelling, No Redness, No Vision Changes Cardiovascular: + Chest Pain, +SOB, No Edema, No Palpitations Respiratory: No Cough, No Sputum, No Dyspnea Gastrointestinal: +Nausea, + Vomiting, No Diarrhea, No Constipation, +Abdominal pain, No Hematochezia, + Melena Genitourinary: No Dysuria, +Urinary Frequency, No Hematuria, No Flank Pain, No Urinary Flow Changes, No Hesitancy Musculoskeletal: No joint pain, No Myalgias, No Joint Swelling Skin: No Skin Lesions, No rash Neuro: No Weakness, No Dizziness, No Headache Yes all other systems are reviewed and are negative Constitutional: Constitutional: Reports as per [facility] Past Medical History Attestation statement: The following information was validated with the patient. Source: old records reviewed Medical History Anxiety Prostate cancer metastatic to bone Surgical History H/O prostatectomy Family History Family History Father Pneumonia Substance abuse Mother CAD (coronary artery disease) CHF (congestive heart failure) Brother Stomach cancer Substance abuse Sister Breast cancer Substance abuse Social History Social History Housing: House Alcohol intake: never Patient Tobacco Use Status: Former Tobacco user Years Smoked: 40 yrs e-Cigarette/Vaping Use: Never Used Second Hand Smoke Exposure: No Substance Use Type: Marijuana Advance Directives: No Advance Directives Information Provided: Yes service: No Current occupational status: unemployed Current occupation: [employer] Cognitive needs: No Hearing needs: No Vision needs: No (Pt went to an eye doctor about 4 years ago. ) Physical Exam ED Vital Signs: Vital Signs - 24 hr 02/01/23 06:14 02/01/23 10:46 Temperature 98.3 F Pulse Rate 84 75 Respiratory Rate 18 12 Blood Pressure 149/81 H 156/68 H Pulse Oximetry 98 97 Oxygen Delivery Method Room Air Room Air BMI result Body Mass Index 23.7 Const General: cooperative, healthy appearing and no acute distress Orientation/consciousness: patient oriented x3 Limitations: no limitations HENMT Head: Yes normal to inspection and Yes atraumatic Ears: hearing grossly normal bilaterally General nose exam: Normal external nose present Face and sinus: Yes normal facial exam Eyes General: appearance normal, both eyes and all related structures EOM: EOMs intact bilaterally Neck Neck: Yes normal visual inspection and Yes no meningeal signs Chest Other: + right-sided lower posterior lateral rib tenderness to palpation reproducing subjective complaint. No ecchymosis/erythema or flail chest Chest palpation & inspection: normal inspection of the chest and no crepitus Resp Effort & Inspection: normal respiratory effort and no respiratory distress Auscultation: clear to auscultation bilaterally and no wheezes Cardio Rate: regular rate Heart sounds: S1 normal heart sound present and S2 normal heart sound present GI Inspection: Yes normal to inspection Palpation (GI): Soft to palpation, Tenderness to palpation present (GI) in the epigastrum and in the RUQ; with no rebound tenderness, no guarding and not rigid General: Yes no CVA tenderness Back/Spine/Pelvis Other: No midline cervical/thoracic/lumbar spinous tenderness/step-off or deformity. + mild bilateral lumbar paraspinal/MSK tenderness to palpation Back: no CVA tenderness Skin Rashes: no rashes Wounds: no wounds Neuro General: patient oriented x3, tone normal and no meningeal signs Gait exam (Neuro): Normal gait present Extrem General: Yes normal to inspection and Yes no pedal edema Course Course Course Narrative: -mild leukocytosis of 12.7 > likely reactive from nausea/vomiting. Labs otherwise reassuring, initial troponin 20.3 > will obtain 3 hour repeat >> patient with episode of black/dark emesis in the ED > will obtain CTA and CT AP for further eval > and bolus w/protonix -UA with RBCs, not infected. Occult stool positive XR chest 1V IMPRESSION: Unremarkable examination. 1120--US abdomen limited IMPRESSION: Hepatic steatosis. CT angio chest PE protocol/CT abdomen pelvis w IV con IMPRESSION: 1.? No evidence of pulmonary embolism. 2.? Pleural thickening adjacent to the rib cage on the right with destructive lesion of the posterior aspect of rib #7 with suspected fracture along the paraspinal line. Correlate with history. 3.? Circumferential thickening of the distal esophagus, correlate clinically. 4.? Status post prostatectomy. VTE: negative. ? ?>> will consult GI, Dr. Manley who recommended continuous IV Protonix and plan for admission, patient admitted at 1203 Medications Administered Discontinued Medications Generic Name Dose Route Start Last Admin Trade Name Freq PRN Reason Stop Dose Admin Famotidine 20 mg 02/01/23 08:10 02/01/23 08:31 Famotidine/Pf 20 Mg/2 Ml Vial IVPUSH 02/01/23 08:11 20 mg ONCE ONE Administration Sodium Chloride 1,000 mls @ 999 mls/hr 02/01/23 08:00 02/01/23 10:55 Ns IV 02/01/23 09:00 Infused .Q1H1M HAYDEE Infusion Iohexol 85 ml 02/01/23 09:38 02/01/23 09:38 Iohexol 350 Mg/Ml 100 Ml Infus..Btl IV 02/01/23 09:39 85 ml ONCE ONE Administration Ondansetron HCl 4 mg 02/01/23 08:29 02/01/23 08:35 Ondansetron Hcl 4 Mg/2 Ml Vial IVPUSH 02/01/23 08:30 4 mg ONCE ONE Administration Pantoprazole Sodium 80 mg 02/01/23 10:27 02/01/23 10:56 Pantoprazole Sodium 40 Mg/10 Ml Vial IVPUSH 02/01/23 10:28 80 mg ONCE ONE Administration Medical Decision Making Medical Decision Making [facility] Narrative: 67-year-old male with a past medical history of anxiety, HLD, HTN, prostate CA not currently on chemotherapy/radiation, hypogonadism, presenting to the ED complaining of right-sided posterior lateral rib pain radiating to RUQ x2 days with associated nausea and vomiting, epigastric abdominal pain, dark emesis, black stools, and urinary frequency. Also reports SOB, pain worse with movement and deep breathing. On exam vital signs stable, NAD, nontoxic appearing, reproducible right-sided lower rib tenderness, abdomen soft with epigastric and RUQ tenderness to palpation, lungs CTA. Concern for pulmonary embolism vs pneumonia vs cholecystitis/lithiasis vs pancreatitis vs GIB vs UTI. Lower suspicion for ACS Of note patient with recent nuclear bone scan on 01/12 which showed focal activity along the right posterior 8th rib and left anterior 5th costochondral junction where metastatic disease could not be excluded Plan: EKG, labs, CXR, CTA to rule out PE, abdomen ultrasound, +/-CTAP, IVF, symptomatic treatment, re-evaluate Please refer to course for remaining clinical decision making, interpretation of labs/imaging results, and discussions with consultants and/or family members. Differential Diagnosis Differential Diagnoses: The differential diagnosis associated with the presentation includes As above Admission/Observation Consideration of admission/observation: Escalation of care including admission/observation considered Consult Healthcare Provider Management of the patient was discussed with: Hospitalist and Superintendent [facility] Lab Data MDM Lab Attestation statement: I reviewed the patient's lab results. 02/01/23 06:19 02/01/23 06:19 Labs: Lab Results 02/01/23 02/01/23 02/01/23 Range/Units 06:19 06:19 06:19 WBC 12.7 H (4.8-10.8) X10*3/uL RBC 4.99 (4.60-5.80) X10*6/uL Hgb 15.0 (14.0-18.0) g/dl Hct 43.9 (42.0-52.0) % MCV 88.0 (80.0-98.0) fL MCH 30.1 (27.0-33.0) pg MCHC 34.2 (31.0-36.0) g/dl RDW 13.2 (11.0-16.0) % Plt Count 195 (160-400) X10*3/uL MPV 9.7 (9.4-12.4) fL Immature Gran % (Auto) 0.3 (0.0-0.4) % Neut % (Auto) 87.7 H (45-73) % Lymph % (Auto) 7.2 L (20-40) % [place] % (Auto) 4.6 (2-11) % Eos % (Auto) 0.1 (0-4) % Baso % (Auto) 0.1 (0-2) % Lymph # (Auto) 0.9 L (1.2-4.9) X10*3/uL [place] # (Auto) 0.6 (0.1-1.2) X10*3/uL Eos # (Auto) 0.0 (0.0-0.4) X10*3/uL Baso # (Auto) 0.0 (0.0-0.2) X10*3/uL Abs Immat Gran (auto) 0.04 H (0.00-0.03) X10*3/uL Absolute Neuts (auto) 11.2 H (2.0-8.3) x10*3/uL Absolute Nucleated RBC 0.000 (0.0-0.012) X10*3/uL Nucleated RBC % (auto) 0.0 (0.0-0.2) /100WBC PT (10.0-13.1) SEC INR (0.9-1.1) Sodium 139 (135-145) mmol/L Potassium 3.5 D (3.3-5.1) mmol/L Chloride 105 (96-108) mmol/L Carbon Dioxide 20 L (22-29) mmol/L Anion Gap 18 (12-20) BUN 14 (9-16) mg/dL Creatinine 0.76 (0.5-1.4) mg/dL Estim Creat Clear Calc 112.7 Estimated GFR > 60 Random Glucose 145 H (60-115) mg/dL Calcium 9.5 (8.4-10.2) mg/dL Magnesium 1.7 (1.6-2.6) mg/dL Total Bilirubin 1.0 (0.0-1.0) mg/dL Direct Bilirubin 0.2 (0.0-0.5) mg/dL AST 17 (5-37) U/L ALT 20 (0-40) U/L Alkaline Phosphatase 133 H (39-117) U/L Troponin I High Sens (<3.5-35.0) ng/L Total Protein 7.9 (6.5-8.0) g/dL Albumin 4.6 (3.5-5.0) g/dL Lipase 10 (8-78) U/L Urine Color Yellow Urine Appearance Clear Urine pH 5.5 (5.0-9.0) Ur Specific [place] >= 1.030 H (1.005-1.025) Urine Protein 30 (1+) H (Neg-Trace) mg/dL Urine Glucose (UA) Negative (Negative) mg/dL Urine Ketones 80 (Negative) mg/dL Urine Blood Small (1+) H (Negative) Urine Nitrite Negative (Negative) Ur Leukocyte Esterase Negative (Negative) Urine RBC 6-10 H (0-2) /HPF Urine WBC 0-5 (0-5) /HPF Ur Squamous Epith Cells 0-2 (0-2) /HPF Urine Bacteria None Seen (None Seen) Hyaline Casts 0-2 (0-2) /LPF Stool Occult Blood (NEGATIVE) 02/01/23 02/01/23 02/01/23 Range/Units 08:06 08:06 08:06 WBC (4.8-10.8) X10*3/uL RBC (4.60-5.80) X10*6/uL Hgb (14.0-18.0) g/dl Hct (42.0-52.0) % MCV (80.0-98.0) fL MCH (27.0-33.0) pg MCHC (31.0-36.0) g/dl RDW (11.0-16.0) % Plt Count (160-400) X10*3/uL MPV (9.4-12.4) fL Immature Gran % (Auto) (0.0-0.4) % Neut % (Auto) (45-73) % Lymph % (Auto) (20-40) % [place] % (Auto) (2-11) % Eos % (Auto) (0-4) % Baso % (Auto) (0-2) % Lymph # (Auto) (1.2-4.9) X10*3/uL [place] # (Auto) (0.1-1.2) X10*3/uL Eos # (Auto) (0.0-0.4) X10*3/uL Baso # (Auto) (0.0-0.2) X10*3/uL Abs Immat Gran (auto) (0.00-0.03) X10*3/uL Absolute Neuts (auto) (2.0-8.3) x10*3/uL Absolute Nucleated RBC (0.0-0.012) X10*3/uL Nucleated RBC % (auto) (0.0-0.2) /100WBC PT 13.0 (10.0-13.1) SEC INR 1.1 (0.9-1.1) Sodium (135-145) mmol/L Potassium (3.3-5.1) mmol/L Chloride (96-108) mmol/L Carbon Dioxide (22-29) mmol/L Anion Gap (12-20) BUN (9-16) mg/dL Creatinine (0.5-1.4) mg/dL Estim Creat Clear Calc Estimated GFR Random Glucose (60-115) mg/dL Calcium (8.4-10.2) mg/dL Magnesium (1.6-2.6) mg/dL Total Bilirubin (0.0-1.0) mg/dL Direct Bilirubin (0.0-0.5) mg/dL AST (5-37) U/L ALT (0-40) U/L Alkaline Phosphatase (39-117) U/L Troponin I High Sens 20.3 (<3.5-35.0) ng/L Total Protein (6.5-8.0) g/dL Albumin (3.5-5.0) g/dL Lipase (8-78) U/L Urine Color Urine Appearance Urine pH (5.0-9.0) Ur Specific [place] (1.005-1.025) Urine Protein (Neg-Trace) mg/dL Urine Glucose (UA) (Negative) mg/dL Urine Ketones (Negative) mg/dL Urine Blood (Negative) Urine Nitrite (Negative) Ur Leukocyte Esterase (Negative) Urine RBC (0-2) /HPF Urine WBC (0-5) /HPF Ur Squamous Epith Cells (0-2) /HPF Urine Bacteria (None Seen) Hyaline Casts (0-2) /LPF Stool Occult Blood POSITIVE (NEGATIVE) 02/01/23 Range/Units 11:26 WBC (4.8-10.8) X10*3/uL RBC (4.60-5.80) X10*6/uL Hgb (14.0-18.0) g/dl Hct (42.0-52.0) % MCV (80.0-98.0) fL MCH (27.0-33.0) pg MCHC (31.0-36.0) g/dl RDW (11.0-16.0) % Plt Count (160-400) X10*3/uL MPV (9.4-12.4) fL Immature Gran % (Auto) (0.0-0.4) % Neut % (Auto) (45-73) % Lymph % (Auto) (20-40) % [place] % (Auto) (2-11) % Eos % (Auto) (0-4) % Baso % (Auto) (0-2) % Lymph # (Auto) (1.2-4.9) X10*3/uL [place] # (Auto) (0.1-1.2) X10*3/uL Eos # (Auto) (0.0-0.4) X10*3/uL Baso # (Auto) (0.0-0.2) X10*3/uL Abs Immat Gran (auto) (0.00-0.03) X10*3/uL Absolute Neuts (auto) (2.0-8.3) x10*3/uL Absolute Nucleated RBC (0.0-0.012) X10*3/uL Nucleated RBC % (auto) (0.0-0.2) /100WBC PT (10.0-13.1) SEC INR (0.9-1.1) Sodium (135-145) mmol/L Potassium (3.3-5.1) mmol/L Chloride (96-108) mmol/L Carbon Dioxide (22-29) mmol/L Anion Gap (12-20) BUN (9-16) mg/dL Creatinine (0.5-1.4) mg/dL Estim Creat Clear Calc Estimated GFR Random Glucose (60-115) mg/dL Calcium (8.4-10.2) mg/dL Magnesium (1.6-2.6) mg/dL Total Bilirubin (0.0-1.0) mg/dL Direct Bilirubin (0.0-0.5) mg/dL AST (5-37) U/L ALT (0-40) U/L Alkaline Phosphatase (39-117) U/L Troponin I High Sens 24.1 (<3.5-35.0) ng/L Total Protein (6.5-8.0) g/dL Albumin (3.5-5.0) g/dL Lipase (8-78) U/L Urine Color Urine Appearance Urine pH (5.0-9.0) Ur Specific [place] (1.005-1.025) Urine Protein (Neg-Trace) mg/dL Urine Glucose (UA) (Negative) mg/dL Urine Ketones (Negative) mg/dL Urine Blood (Negative) Urine Nitrite (Negative) Ur Leukocyte Esterase (Negative) Urine RBC (0-2) /HPF Urine WBC (0-5) /HPF Ur Squamous Epith Cells (0-2) /HPF Urine Bacteria (None Seen) Hyaline Casts (0-2) /LPF Stool Occult Blood (NEGATIVE) Independent Interpretation I performed an independent interpretation of an: EKG Radiology Impression Discussion of test interpretation with radiology: I have reviewed the radiologist's reading. External Record Review External record reviewed: Inpatient record, Office record, Outpatient record, Prior outpatient labs, Prior outpatient radiology, Primary care record and Outside ED record Tests considered The following testing was considered but not selected: As above Prescription Management I considered prescription management with: Pain Medication and Other Chronic Conditions Patient?s care impacted by: Cancer and Other Critical Care Time Critical Care Time Critical Care Time: Yes Total Critical Care Time: 40 Attestation: I have personally provided critical care time exclusive of time spent on separately billable procedures. Time includes review of lab data, radiology results, discussion with consultants, and monitoring for potential decompensation. Intervention performed as documented. Discharge Plan Discharge Clinical Impression: Acute upper gastrointestinal bleeding, Pathologic rib fracture Patient Disposition: Admitted As Inpatient
[2023-02-01] MEDS: 0.9 % Sodium Chloride 1,000 ML 999 ML IV (08:08)
[2023-02-01 08:15] LABS: Alanine Aminotransferase 20 U/L (0-40); Albumin Level 4.6 g/dL (3.5-5.0); Alkaline Phosphatase 133 U/L (39-117); Aspartate Amino Transferase 17 U/L (5-37); Bilirubin Direct 0.2 mg/dL (0.0-0.5); Lipase 10 U/L (8-78); Magnesium 1.7 mg/dL (1.6-2.6); Total Protein 7.9 g/dL (6.5-8.0)
[2023-02-01 08:15] LABS: OBS Int Ctl Valid YES; OBS1 POSITIVE (NEGATIVE)
[2023-02-01 08:18] LABS: INTERNATIONAL NORM RATIO 1.1 (0.9-1.1)
[2023-02-01] MEDS: Famotidine/PF 20 MG/2 ML VIAL IVPUSH (08:31)
[2023-02-01] MEDS: ondansetron HCL 4 MG/2 ML VIAL IVPUSH (08:35)
[2023-02-01 08:44] LABS: Troponin-I High Sensitivity 20.3 ng/L (<3.5-35.0)
--- NOTE | 2023-02-01 08:48 | PC.NURSE ---
medicated per the mar, resp even and unlabored. pt vomiting - dark in color. fluids infusing
[2023-02-01] MEDS: iohexoL 350 MG/ML 100 ML INFUS..BTL 85 ML IV (09:38)
[2023-02-01 10:46] VITALS: BP 156/68; PULSE 75; RESP 12; O2SAT 97
[2023-02-01] MEDS: Pantoprazole Sodium 40 MG/10 ML VIAL 80 MG IVPUSH (10:56)
[2023-02-01 11:53] LABS: Troponin-I High Sensitivity 24.1 ng/L (<3.5-35.0)
[2023-02-01] MEDS: Pantoprazole Sodium 80 MG in 0.9 % Sodium Chloride 80 ML 10 MG IV (12:19)
--- NOTE | 2023-02-01 12:54 | P.HPHOSP_ITS ---
History of Present Illness Date of Service: 02/01/23 <ANETA Medeiros - Last Filed: 02/01/23 13:35> Attending physician on admission: Miquel Heath <ANETA Medeiros - Last Filed: 02/01/23 13:35> Chief Complaint: vomiting, abd pain, rib pain <ANETA Medeiros - Last Filed: 02/01/23 13:35> 67 year old male with history of GERD, hypogonadism, hx prostate cancer with bony metastasis treated with radiation in 2005 followed by lupron injections w/p prostatectomy, reactive airway disease presented to the ED for evaluation of right-sided posterior lateral rib pain radiating to RUQ x2 days with associated nausea and vomiting. Also reporting generalized abdominal pain. Denies any history of trauma or recent illness. He has had increased reflux with increasing epigastric pain with burning radiating into the chest with dark emesis (no larissa blood or coffee grounds per patient), black stools. Denies taking any blood thinner. Has remote history cigarette smoking, occassional etoh use, no illicit drugs. he also reports urinary frequency but states this is long standing and following with Dr. Chen. On arrival, VSS. Mild leukocytosis 12.7, likely reactive. H/H 15.0/43.9%. Renal function normal and electrolytes unremarkable. UA wtih 1_ blood, 1+ protein, elevated SG. Stool occult positive. CXR negative. CT abd/pelvis with contrast negative for acute abnormality. CTA chest showing lesion with pleural thickening adjacent to the rib cage on the right with destructive lesions of the posterior aspect of the right 7th rib questionable f racture on right 7th rib (bone scan 2 weeks ago negative per patient), circumferential thickening of the distal esophagus. ED provider discussed case with Dr. Manley recommending admission. He has been treated with 80 mg IV Protonix and was started on Protonix drip. <ANETA Medeiros - Last Filed: 02/01/23 13:35> Review of Systems Review of Systems: General: No fevers, malaise, unintentional weight loss HEENT: No blurred vision, diplopia. No sore throat, nasal congestion, r hinorrhea, sinus pain, ear pain Cardiovascular: No chest pain, palpitations, or leg edema Respiratory: No shortness of breath, wheezing, cough GI: +epigatric pain, n//v, melena, dark vomitus. No nausea, vomiting, diarrhea, constipation, hematochezia : No dysuria, hematuria, increased urinary frequency, decreased urinary output MSK: No myalgia, back pain. +right chest pain Neuro: No headaches, weakness, paresthesias Skin: No rashes or lesions <ANETA Medeiros - Last Filed: 02/01/23 13:35> [facility] Medical History: Medical History (Updated 02/01/23 @ 13:28 by ANETA Medeiros) Anxiety Asthma HTN (hypertension) Hypogonadism in male MDD (major depressive disorder), recurrent episode Prostate cancer metastatic to bone <ANETA Medeiros - Last Filed: 02/01/23 13:35> Family History: Family History Father Pneumonia Substance abuse Mother CAD (coronary artery disease) CHF (congestive heart failure) Brother Stomach cancer Substance abuse Sister Breast cancer Substance abuse <ANETA Medeiros - Last Filed: 02/01/23 13:35> Surgical History: Surgical History H/O prostatectomy <ANETA Medeiros - Last Filed: 02/01/23 13:35> Social History: Social History Housing: House Alcohol intake: never Patient Tobacco Use Status: Former Tobacco user Years Smoked: 40 yrs e-Cigarette/Vaping Use: Never Used Second Hand Smoke Exposure: No Substance Use Type: Marijuana Advance Directives: No Advance Directives Information Provided: Yes service: No Current occupational status: unemployed Current occupation: [employer] Cognitive needs: No Hearing needs: No Vision needs: No (Pt went to an eye doctor about 4 years ago. ) <ANETA Medeiros - Last Filed: 02/01/23 13:35> Meds Allergies/Adverse reactions: Allergies Allergy/AdvReac Type Severity Reaction Status Date / Time [id number] Reductase AdvReac Intermediate Joint and Verified 01/21/23 09:16 Inhibitor muscle pain <ANETA Medeiros - Last Filed: 02/01/23 13:35> Active Medications: Current Medications Acetaminophen (Acetaminophen 325 Mg Tablet) 650 mg PO Q6H PRN PRN Reason: Pain, Mild (Pain Scale 1-3) Docusate Sodium (Docusate Sodium 100 Mg Capsule) 100 mg PO DAILY PRN PRN Reason: Constipation Ondansetron HCl (Ondansetron Hcl 4 Mg/2 Ml Vial) 4 mg IVPUSH Q8H PRN PRN Reason: Nausea and Vomiting Pantoprazole Sodium (Pantoprazole Sodium 40 Mg/10 Ml Vial) 40 mg IVPUSH BID@0630,1630 [facility] Pharmacy Consult (Consult Rx Perform Med Rec) 1 each MISCELLANE ONCE PRN PRN Reason: Consult order Sodium Chloride (0.9 % Sodium Chloride Flush 3 Ml Syringe) [facility] Sucralfate (Sucralfate Oral Suspension 1 Gm/10 Ml Oral.Susp) 1 gm PO QIDACHS [facility] <ANETA Medeiros - Last Filed: 02/01/23 13:35> Home medications: Home Medications Medication Instructions Recorded Confirmed Last Taken Type ibuprofen 800 mg tablet 800 mg PO Q8H PRN Pain 02/01/23 02/01/23 Unknown History omeprazole 20 mg capsule,delayed 20 mg PO DAILY@0630 02/01/23 02/01/23 01/31/23 History release <ANETA Medeiros - Last Filed: 02/01/23 13:35> Physical Exam Vital Signs and Narrative: Vital Signs: Last Vital Signs Temp 98.3 F 02/01/23 06:14 Pulse 75 02/01/23 10:46 Resp 12 02/01/23 10:46 BP 156/68 H 02/01/23 10:46 Pulse Ox 97 02/01/23 10:46 O2 Del Method Room Air 02/01/23 10:46 BMI result Body Mass Index 23.7 <ANETA Medeiros - Last Filed: 02/01/23 13:35> Constitutional - Awake and Alert, No apparent distress Eyes - PERRLA, EOMI Cardiovascular - S1S2, RRR, No edema Chest- nontender to palpation Respiratory - Normal lung expansion, Normal respiratory effort, No respiratory distress, CTA bilaterally Gastrointestinal - mild upper abd ttp. ND; +BS; No rebound or guarding Extremities - no calf tenderness bilaterally, no swelling MSK- right sided paraspinal ttp at the level of about T7-10 Skin - Warm/Dry Neurological - Alert & oriented x3, 5/5 strength BUE and BLE Psychological - Appropriate affect <ANETA Medeiros - Last Filed: 02/01/23 13:35> Results Labs CBC and Chem 7: 02/01/23 06:19 02/01/23 06:19 <ANETA Medeiros - Last Filed: 02/01/23 13:35> Labs: Laboratory Results - last 24 hr 02/01/23 02/01/23 02/01/23 06:19 06:19 06:19 MCV 88.0 MCH 30.1 MCHC 34.2 RDW 13.2 Plt Count 195 MPV 9.7 Immature Gran % (Auto) 0.3 Neut % (Auto) 87.7 H Lymph % (Auto) 7.2 L Cross % (Auto) 4.6 Eos % (Auto) 0.1 Baso % (Auto) 0.1 Lymph # (Auto) 0.9 L Cross # (Auto) 0.6 Eos # (Auto) 0.0 Baso # (Auto) 0.0 Abs Immat Gran (auto) 0.04 H Absolute Neuts (auto) 11.2 H Absolute Nucleated RBC 0.000 Nucleated RBC % (auto) 0.0 PT INR Anion Gap 18 Estim Creat Clear Calc 112.7 Estimated GFR > 60 Random Glucose 145 H Calcium 9.5 Magnesium 1.7 Total Bilirubin 1.0 Direct Bilirubin 0.2 AST 17 ALT 20 Alkaline Phosphatase 133 H Troponin I High Sens Total Protein 7.9 Albumin 4.6 Lipase 10 Urine Color Yellow Urine Appearance Clear Urine pH 5.5 Ur Specific [place] >= 1.030 H Urine Protein 30 (1+) H Urine Glucose (UA) Negative Urine Ketones 80 Urine Blood Small (1+) H Urine Nitrite Negative Ur Leukocyte Esterase Negative Urine RBC 6-10 H Urine WBC 0-5 Ur Squamous Epith Cells 0-2 Urine Bacteria None Seen Hyaline Casts 0-2 Stool Occult Blood 02/01/23 02/01/23 02/01/23 08:06 08:06 08:06 MCV MCH MCHC RDW Plt Count MPV Immature Gran % (Auto) Neut % (Auto) Lymph % (Auto) Cross % (Auto) Eos % (Auto) Baso % (Auto) Lymph # (Auto) Cross # (Auto) Eos # (Auto) Baso # (Auto) Abs Immat Gran (auto) Absolute Neuts (auto) Absolute Nucleated RBC Nucleated RBC % (auto) PT 13.0 INR 1.1 Anion Gap Estim Creat Clear Calc Estimated GFR Random Glucose Calcium Magnesium Total Bilirubin Direct Bilirubin AST ALT Alkaline Phosphatase Troponin I High Sens 20.3 Total Protein Albumin Lipase Urine Color Urine Appearance Urine pH Ur Specific [place] Urine Protein Urine Glucose (UA) Urine Ketones Urine Blood Urine Nitrite Ur Leukocyte Esterase Urine RBC Urine WBC Ur Squamous Epith Cells Urine Bacteria Hyaline Casts Stool Occult Blood POSITIVE 02/01/23 11:26 MCV MCH MCHC RDW Plt Count MPV Immature Gran % (Auto) Neut % (Auto) Lymph % (Auto) Cross % (Auto) Eos % (Auto) Baso % (Auto) Lymph # (Auto) Cross # (Auto) Eos # (Auto) Baso # (Auto) Abs Immat Gran (auto) Absolute Neuts (auto) Absolute Nucleated RBC Nucleated RBC % (auto) PT INR Anion Gap Estim Creat Clear Calc Estimated GFR Random Glucose Calcium Magnesium Total Bilirubin Direct Bilirubin AST ALT Alkaline Phosphatase Troponin I High Sens 24.1 Total Protein Albumin Lipase Urine Color Urine Appearance Urine pH Ur Specific [place] Urine Protein Urine Glucose (UA) Urine Ketones Urine Blood Urine Nitrite Ur Leukocyte Esterase Urine RBC Urine WBC Ur Squamous Epith Cells Urine Bacteria Hyaline Casts Stool Occult Blood <ANETA Medeiros - Last Filed: 02/01/23 13:35> Imaging Radiologist's Impressions: Impressions Chest X-Ray 02/01/23 07:10 IMPRESSION: Unremarkable examination. Abdomen Ultrasound 02/01/23 08:20 IMPRESSION: Hepatic steatosis. Abdomen/Pelvis CT 02/01/23 09:44 IMPRESSION: 1. No evidence of pulmonary embolism. 2. Pleural thickening adjacent to the rib cage on the right with destructive lesion of the posterior aspect of rib #7 with suspected fracture along the paraspinal line. Correlate with history. 3. Circumferential thickening of the distal esophagus, correlate clinically. 4. Status post prostatectomy. VTE: negative. Kathy Mckeon DO [employer] Chest CTA 02/01/23 09:44 IMPRESSION: 1. No evidence of pulmonary embolism. 2. Pleural thickening adjacent to the rib cage on the right with destructive lesion of the posterior aspect of rib #7 with suspected fracture along the paraspinal line. Correlate with history. 3. Circumferential thickening of the distal esophagus, correlate clinically. 4. Status post prostatectomy. VTE: negative. Kathy Mckeon DO [employer] <ANETA Medeiros - Last Filed: 02/01/23 13:35> Assessment and Plan (1) Acute upper gastrointestinal bleeding: Status: Acute <ANETA Medeiros - Last Filed: 02/01/23 13:35> 67 year old male with history of GERD, hypogonadism, hx prostate cancer with bony metastasis treated with radiation in 2005 followed by lupron injections w/p prostatectomy, reactive airway disease admitted for management of upper GI bleed with nausea vomiting # upper GI bleed -CT noted thickening of the distal esophagus -IV PPI b.i.d., Carafate. Stop pantoprazole drip -ondansetron p.r.n. -clear liquid diet -Appreciate GI input -H/H stable, follow CBC # bony destruction right 7th rib with pleural thickening -has known history of metastatic prostate cancer to the bone -appreciate oncology input -per patient had negative bone scan in [place] 2 weeks ago. Will obtain records # history of prostate cancer -outpatient follow-up with Dr. Chen #HTN -continue amlodipine #Mood disorder -continue home meds DVT prophylaxis- SDPs Full code Patient requires inpatient stay of at least 2 midnights for management of acute upper GI bleed requiring close monitoring and expert consultation <ANETA Medeiros - Last Filed: 02/01/23 13:35> 67 year old male with history of GERD, hypogonadism, hx prostate cancer with bony metastasis treated with radiation in 2005 followed by lupron injections w/p prostatectomy, reactive airway disease admitted for management of upper GI bleed with nausea vomiting # upper GI bleed -CT noted thickening of the distal esophagus -IV PPI b.i.d., Carafate. Stop pantoprazole drip -ondansetron p.r.n. -clear liquid diet -Appreciate GI input -H/H stable, follow CBC # bony destruction right 7th rib with pleural thickening -has known history of metastatic prostate cancer to the bone -appreciate oncology input -per patient had negative bone scan in [place] 2 weeks ago. Will obtain records # history of prostate cancer -outpatient follow-up with Dr. Chen #HTN -continue amlodipine #Mood disorder -continue home meds DVT prophylaxis- SDPs Full code Patient requires inpatient stay of at least 2 midnights for management of acute upper GI bleed requiring close monitoring and expert consultation Addendum to history and physical by the advanced practice provider, ANETA Avendano I interviewed and examined the patient. I discussed their presentation and management with the JULITO. I reviewed the history and physical and agree with the documentation, with the following additions and corrections: 67yo M with metastatic prostate CA s/p prostatectomy + XRT + androgen d eprivation therapy presenting with R-sided posterolateral rib pain and RUQ pain with N/V, reflux, and dark-colored emesis with emesis. No blood thinners. On arrival not anemic, CTA with pleural thickening with dstructive lesion of posterior aspect of R 7th rib, circumferential thickening of distal esophagus. NM bone scan 01/12/23: Mild focal activity along the right posterior 8t rib and left anterior 5th costochondral junction. These could be related to trauma. Metastatic disease cannot be excluded. Plan admit to M/S, give IV PPI, GI consultation for possible EGD. Oncology consultation re question of metastasis to R 7th rib. <Miquel Heath MD - Last Filed: 02/01/23 15:25> Time Spent With Patient Time: Total time managing care of this patient today ____ minutes. <ANETA Medeiros - Last Filed: 02/01/23 13:35> Quality Stroke Does the patient have a stroke diagnosis?: No <ANETA Medeiros - Last Filed: 02/01/23 13:35> VTE Prior VTE?: No <ANETA Medeiros - Last Filed: 02/01/23 13:35> VTE Risk Level:: Medical - moderate - high <ANETA Medeiros - Last Filed: 02/01/23 13:35> VTE Device Contraindication: N/A - Device Ordered <ANETA Medeiros - Last Filed: 02/01/23 13:35> VTE Drug Contraindication: Treatment Not Indicated <ANETA Medeiros - Last Filed: 02/01/23 13:35>
--- NOTE | 2023-02-01 13:25 | PHA.MEDREC ---
Pharmacy Consult ? Medication Reconciliation Pharmacy has completed the medication reconciliation. Spoke to pt at bedside, noted he is no longer taking atorvastatin
[2023-02-01] MEDS: Acetaminophen 325 MG TABLET 650 MG PO (14:15)
[2023-02-01 15:37] VITALS: BP 150/73; PULSE 69; RESP 18; TEMP 36.9; O2SAT 97
[2023-02-01] MEDS: Sucralfate Oral Suspension 1 GM/10 ML ORAL.SUSP PO (16:01)
[2023-02-01] MEDS: 0.9 % Sodium Chloride Flush 3 ML SYRINGE IVFLUSH ×2 (16:01→21:15)
--- NOTE | 2023-02-01 17:22 | P.CNHO_ITS ---
Subjective - Subjective Chief complaint: Consult for: Metastatic prostate cancer. Thickening of the esophagus. Patient: new to practice Consult date: 02/01/23 Requesting Physician: Kumar Primary Care Provider: Gadiel Tripp PA-C Medical Summary: DIAGNOSIS: METASTATIC PROSTATE CARCINOMA WITH RIB METS. THICKENING OF THE ESOPHAGUS. HPI - Consult Narrative Reason for consult: Consult for: Metastatic prostate cancer. Narrative: Justin Briceno is a 67 year old gentleman, who tells me he was diagnosed with prostate carcinoma years ago. He was under treatment in [place], under the care of Dr. Verona Ray, at [facility]. He initially underwent prostatectomy. In 2008 he was noted to have bone metastases involving the right lower ribs. He was then started on Lupron every 3 months along with Casodex p.o. he had some side effects including fatigue and weight gain. I guess he did respond to those. He was taken off treatment about 4- 5 years ago. More recently she has been following with Dr. Chen. PSA from August was 0.33. PSA from December was 0.45. Bone scan from 01/12 revealed: Mild focal activity along the right posterior 8t rib and left anterior 5th costochondral junction. These could be related to trauma. Metastatic disease cannot be excluded. Nonspecific activity in the thoracic and lumbar spine may represent degenerative arthritis. Not typical of metastatic disease. Mild degenerative arthritic changes in bilateral knee joints and bilateral foot. Last night when he rolled over in bed to worse the right he noted severe right lower rib pain. He rolled to the left side. This caused severe acid reflux. This led to some vomiting. Color was rather dark. That prompted him to come into the hospital. He did have an episode of vomitin g this morning as well. CT of the chest revealed: 1. No evidence of pulmonary embolism. 2. Pleural thickening adjacent to the rib cage on the right with destructive lesion of the posterior aspect of rib #7 with suspected fracture along the paraspinal line. Correlate with history. 3. Circumferential thickening of the distal esophagus, correlate clinically. 4. Status post prostatectomy. VTE: negative. PAST MEDICAL HISTORY: PROSTATE CANCER: Diagnosed in 2005, by Dr. Costa. Initial therapy: Prostatectomy. Pathology: Grade 3+4. Rising PSA 2007 with external beam radiation and subsequent intermittent hormones. Additional treatment in 2009: Hormonal blockade: Continues with GnRH agonist, Lupron and anti androgen, Nilandron. Additional treatment in 2016: Hormonal blockade, intermittent. Last 01/12. Additional treatment, Prolia in 04/16. FAMILY HISTORY: A brother of stomach cancer. A sister had breast cancer. A niece of stomach cancer. 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 He is . He has 1 child. He used to smoke pot but not cigarettes. He quit 8 years ago. He denies alcohol. ROS: He does feel tired at times but he pushes himself. He walks 5 miles a day. He denies fever. He did feel cold and sweats. His appetite has declined. He has lost weight. He gets occasional headaches. Denies dizziness. He has had pain in his right lower rib cage. He complains of shortness of breath. He complains of abdominal pain nausea. He has had vomiting x3 today. He has had heartburn and reflux symptoms. His stools are normal but black in color. He has urinary frequency. He has had muscle pain. He complains of low back pain. The pain radiates into his legs. He denies any weakness. He has had anxiety and depression. No skin rashes no pruritus. Review of Systems - Constitutional Reports system reviewed and no additional complaints, except as documented, Reports headache(s), Reports weight loss, Denies fatigue, Denies fever(s), Denies frequent falls, Denies lack of energy, Denies malaise, Denies night sweats - Eyes Reports system reviewed and no additional complaints, except as documented - ENT Reports system reviewed and no additional complaints, except as documented - Cardiovascular Reports system reviewed and no additional complaints, except as documented - Respiratory Reports no additional respiratory complaints - Gastrointestinal Reports system reviewed and no additional complaints, except as documented, Reports abdominal pain, Reports black, tarry stools, Reports bloating, Reports feeling full early, Reports dyspepsia, Reports heartburn, Reports nausea, Reports vomiting, Denies diarrhea, Denies loose stools - Genitourinary Genitourinary: Reports no additional male genitourinary complaints - Musculoskeletal Reports system reviewed and no additional complaints, except as documented, Reports back pain, Reports joint pain, Denies joint swelling - Integumentary/Breasts Skin/Breast: Reports no additional skin complaints - Neurologic Reports system reviewed and no additional complaints, except as documented - Psychiatric Reports system reviewed and no additional complaints, except as documented - Endocrine Reports no additional endocrine complaints - Hematologic/Lymphatic Reports system reviewed and no additional complaints, except as documented - Allergic/Immunologic Reports system reviewed and no additional complaints, except as documented Oncology Screenings - ECOG Performance Status ECOG Performance Status: 2 [facility] Medical History: Medical History (Last Reviewed 02/04/23 @ 09:49 by KEVIN Ochoa) Anxiety Asthma HTN (hypertension) Hypogonadism in male MDD (major depressive disorder), recurrent episode Prostate cancer metastatic to bone Functional capacity: wheelchair bound Patient : No Family History: Family History (Last Reviewed 02/04/23 @ 09:49 by KEVIN Ochoa) Father Pneumonia Substance abuse Mother CAD (coronary artery disease) CHF (congestive heart failure) Brother Stomach cancer Substance abuse Sister Breast cancer Substance abuse Surgical History: Surgical History (Last Reviewed 02/04/23 @ 09:49 by KEVIN Ochoa) H/O prostatectomy Social History: Social History (Last Reviewed 02/04/23 @ 09:49 by KEVIN Ochoa) Living Situation History: Household Members: Friend(s) Housing: House Do you presently have visiting nurse or other home services: No Tobacco History: Patient Tobacco Use Status: Never used Tobacco Years Smoked: 40 yrs e-Cigarette/Vaping Use: Never Used Second Hand Smoke Exposure: No Substance Use History: Substance Use Type: Marijuana Occupation Assessmet: service: No Current occupational status: unemployed Current occupation: [employer] Home Medications and Allergies Current Medications: Current Medications Acetaminophen (Acetaminophen 325 Mg Tablet) 650 mg PO Q6H PRN PRN Reason: Pain, Mild (Pain Scale 1-3) Last Admin: 02/01/23 14:15 Dose: 650 mg Acetaminophen (Acetaminophen 325 Mg Tablet) 325 mg PO BID [facility] Amlodipine Besylate (Amlodipine Besylate 5 Mg Tablet) 5 mg PO DAILY [facility]; Protocol Cyclobenzaprine HCl (Cyclobenzaprine Hcl 10 Mg Tablet) 10 mg PO BEDTIME PRN PRN Reason: muscle spasm Docusate Sodium (Docusate Sodium 100 Mg Capsule) 100 mg PO DAILY PRN PRN Reason: Constipation Ondansetron HCl (Ondansetron Hcl 4 Mg/2 Ml Vial) 4 mg IVPUSH Q8H PRN PRN Reason: Nausea and Vomiting Oxycodone HCl (Oxycodone Hcl Immed Release 5 Mg Tablet) 5 mg PO BID [facility] Pantoprazole Sodium (Pantoprazole Sodium 40 Mg/10 Ml Vial) 40 mg IVPUSH BID@0630,1630 [facility] Pharmacy Consult (Consult Rx Perform Med Rec) 1 each MISCELLANE ONCE PRN PRN Reason: Consult order Sodium Chloride (0.9 % Sodium Chloride Flush 3 Ml Syringe) 3 ml IVFLUSH QSHIFT [facility] Last Admin: 02/01/23 16:01 Dose: 3 ml Sucralfate (Sucralfate Oral Suspension 1 Gm/10 Ml Oral.Susp) 1 gm PO QIDACHS [facility] Last Admin: 02/01/23 16:01 Dose: 1 gm Allergies Allergy/AdvReac Type Severity Reaction Status Date / Time [id number] Reductase AdvReac Intermediate Joint and Verified 01/21/23 09:16 Inhibitor muscle pain Physical Exam Vital signs: Vital Signs Temp 98.4 F 02/01/23 15:37 Pulse 69 02/01/23 15:37 Resp 18 02/01/23 15:37 BP 150/73 H 02/01/23 15:37 Pulse Ox 97 02/01/23 15:37 O2 Del Method Room Air 02/01/23 15:37 Intake & Output 01/31/23 02/01/23 02/01/23 18:59 06:59 18:59 Intake Total 1018.833 / 1018.833 Balance 1018.833 / 1018.833 Intake: Intake, IV Amount 1018.833 / 1018.833 0.9 % Sodium Chloride 1,000 ml 1000 / 1000 @ 999 mls/hr IV .Q1H1M [facility] Rx#: [id number] Pantoprazole Sodium 80 mg In 0. 18.833 / 18.833 9 % Sodium Chloride 80 ml @ 8 MG/HR 10 mls/hr IV .Q10H [facility] Rx #:[id number] Other: Weight 86.183 kg Weight 86.183 kg - Constitutional Present: mild distress - Routine HEENT Exam Head: Present: normal inspection, normocephalic Eye: Present: normal appearance ENT: Present: mucous membranes moist - Routine Neck Exam Present: supple - Routine Cardiovascular Exam Cardiovascular: Present: RRR, S1, S2 - Routine Abdominal Exam Present: soft, tenderness, nontender - Routine Extremities Exam Present: nontender - Routine Skin Exam Present: intact - Routine Neurological Exam Present: alert, oriented X3 - Detailed Neurological Exam: Coma Scale Eye Opening: Spontaneous (4) Verbal Response: Oriented (5) Motor Response: Obeys commands (6) Maxwell Coma Scale Total: 15 Hem/Onc Consult Result - Labs CBC & Chem 7: 02/02/23 05:45 02/02/23 05:45 Labs: Short CBC 02/01/23 Range/Units 06:19 WBC 12.7 H (4.8-10.8) X10*3/uL Hgb 15.0 (14.0-18.0) g/dl Hct 43.9 (42.0-52.0) % Plt Count 195 (160-400) X10*3/uL BMP 02/01/23 06:19 Sodium 139 Potassium 3.5 D Chloride 105 Carbon Dioxide 20 L BUN 14 Creatinine 0.76 Calcium 9.5 Liver Function 02/01/23 Range/Units 06:19 Total Bilirubin 1.0 (0.0-1.0) mg/dL Direct Bilirubin 0.2 (0.0-0.5) mg/dL AST 17 (5-37) U/L ALT 20 (0-40) U/L Alkaline Phosphatase 133 H (39-117) U/L Albumin 4.6 (3.5-5.0) g/dL Urine 02/01/23 Range/Units 06:19 Urine Color Yellow Urine Appearance Clear Urine pH 5.5 (5.0-9.0) Ur Specific [place] >= 1.030 H (1.005-1.025) Urine Protein 30 (1+) H (Neg-Trace) mg/dL Urine Glucose (UA) Negative (Negative) mg/dL Assessment and Plan Patient Active problem list reviewed?: Yes (1) Prostate cancer metastatic to bone Status: Acute Assessment and plan: This is a pleasant 67-year-old gentleman with a previous history of prostate cancer, status post prostatectomy. He then developed bone metastases in 2008. He was then treated with on therapy: Lupron and Casodex under the care of Dr. Verona Ray ([facility].) I will request records from her. More recently he has been following up with Dr. Chen. Will check with his office if he has the old records. He now presents with worsening right lower rib pain. 1. No evidence of pulmonary embolism. 2. Pleural thickening adjacent to the rib cage on the right with destructive lesion of the posterior aspect of rib #7 with suspected fracture along the paraspinal line. Correlate with history. 3. Circumferential thickening of the distal esophagus, correlate clinically. 4. Status post prostatectomy. VTE: negative. Other abnormal finding was the thickening of the distal esophagus. Could be malignancy versus reflux esophagitis. PLAN: To proceed with upper endoscopy, for further evaluation. Meanwhile I will check tumor marker. CEA: 2.0. PSA: 0.50. Will compare his previous imaging to the one more recently. There is disease progression, which is likely, he would be a candidate for systemic treatment. Thank you for the consult, I will follow along with you. CC: Dr. Chen. Dr. Tripp. Dr. Maynard. The upper endoscopy from 02/[address] Bell revealed: Erosive esophagitis. RECOMMENDATION: 1. Advance diet. 2. Omeprazole 40 mg daily. 3. Outpatient followup in 8 to 12 weeks. Patient belongs to Dr. Maynard. He was signed out to him. - Time Spent With Patient Time Spent with Patient (in minutes): 30
[2023-02-01] MEDS: Morphine Sulfate 2 MG/ML CARTRIDGE IVPUSH (18:00)
[2023-02-01] MEDS: Lidocaine 4 % Patch ADH..PATCH 1 PATCH TRANSDERMA (18:00)
--- NOTE | 2023-02-01 18:00 | P.EN_ITS ---
Event Note Date of Service: 02/01/23 Event Note: GI Consult-Full note dictated Imp: UGI bleed in relation to probable erosive esophagitis from GERD and recent vomiting due to pain in ribs from possible metastatic prostate cancer. He describes a diminished apetite, but denies dysphagia. The CT scan describes thic kening in distal esophagus. He had an unremarkable EGD in 2012. Need to R/O esophageal neoplasm as well. Rec: Continue IV PPI, supportive care, F/U Hgb. EGD with MAC on 02/[address] Bell. Full consent obtained for this , including risks of bleeding and perforation. D/W patient in detail and he is comfortable with this plan. Thanks. Time Spent With Patient Time: Total time managing care of this patient today ____ minutes.
--- NOTE | 2023-02-01 18:07 | MHC.SHP ---
Pre-Procedural Eval Section A Date of Service: 02/01/23 The patient is an INPATIENT: Yes The History & Physical has been completed within 30 days and I have reviewed it.: Yes Section B Chief Complaint: UGIB Allergies: Allergies Allergy/AdvReac Type Severity Reaction Status Date / Time [id number] Reductase AdvReac Intermediate Joint and Verified 01/21/23 09:16 Inhibitor muscle pain Plan I have reviewed the history and physical and performed a pertinent physical examination on my patient. No changes have occurred unless specified. Time Spent With Patient Time: Total time managing care of this patient today ____ minutes.
[2023-02-01 19:03] VITALS: BP 136/64; PULSE 63; RESP 16; TEMP 36.9; O2SAT 96
[2023-02-01] MEDS: Acetaminophen 325 MG TABLET PO (21:12)
[2023-02-01] MEDS: oxyCODONE HCl Immed Release 5 MG TABLET PO (21:12)
--- NOTE | 2023-02-02 03:50 | CONS_ITS ---
DATE OF SERVICE: 02/01/2023 REASON FOR CONSULTATION: Upper GI bleeding and abnormal CT scan of esophagus. HISTORY OF PRESENT ILLNESS: The patient is a 67-year-old male with an underlying history of prostate cancer who has developed a fairly severe right-sided rib pain. A recent bone scan described some abnormalities in that area and raised a suspicion for metastatic disease, but was not definitive. His prostate cancer was diagnosed back in approximately 2005 for which he underwent prostatectomy, subsequent radiation treatment, and subsequent hormone therapy. He does have a history of reflux. He underwent an upper endoscopy with pa in 2012 with the finding of only a hiatal hernia, but no other significant abnormalities. He does take occasional omeprazole, but not on a regular nor frequent basis. He reports that the reflux seemed to have been stable up until the past 24 or 48 hours ago when he began having increasing right-sided rib pain prompting some nausea and vomiting. He began having a lot of reflux overnight. Due to that and the significant rib pain, he came to the ER. He describes several episodes of coffee-grounds emesis and some small dark stools. He did not have any hematemesis nor hematochezia. He has had some generalized abdominal discomfort as well. He denies any jaundice. He has had some anorexia, but denies any dysphagia. His bowel movements have been fairly regular otherwise. His upper endoscopy with pa in 2012 was negative for Hamilton's esophagus as well. He has also had several colonoscopies with pa, most recently as of May 2019 with removal of some tubular adenomas. Since admission to the medical floor, he reports that he has been stable. He has had no further vomiting nor any bowel movements. He denies the use of any recent NSAIDs, aspirin, tobacco, nor alcohol. MEDICATIONS: At home, included amlodipine, cyclobenzaprine, omeprazole p.r.n., oxycodone with acetaminophen, and ibuprofen is on his list. He denies having used that. His medications here include acetaminophen, amlodipine, cyclobenzaprine, Colace, lidocaine patch, Zofran p.r.n., oxycodone p.r.n., IV pantoprazole, and sucralfate suspension. PAST MEDICAL HISTORY: Prostatectomy. Right elbow surgery. Right ankle surgery. Gastroesophageal reflux with upper endoscopy in 2012 describing a small hiatal hernia and no evidence of esophagitis or [place] esophagus. Tubular adenoma of the colon with his most recent colonoscopy in 2019. He has a history of hypertension. Prostate cancer as above. He denies history of NV, diabetes, stroke, lung disease, nor kidney disease. SOCIAL HISTORY: He is single. He is retired. He denies tobacco nor alcohol. FAMILY HISTORY: Noncontributory. REVIEW OF SYSTEMS: CONSTITUTIONAL: He has been feeling somewhat tired and weak at home in relation to the pain and anorexia. SKIN: No rash. No pruritus. HEENT: Negative. CARDIAC: No chest pain. PULMONARY: No cough. No hemoptysis. GI: As above. URINARY: No dysuria. No hematuria. NEUROLOGIC: No headache or seizures. PSYCHIATRIC: Negative. PHYSICAL EXAMINATION: GENERAL: The patient is an alert, pleasant, comfortable-appearing male, in no distress. HEENT: Anicteric sclerae. SKIN: Warm and dry. NECK: Supple, without lymphadenopathy. CHEST: Clear. CARDIAC: Normal S1, S2. ABDOMEN: Soft, nondistended. Normal bowel sounds. There was a mild diffuse tenderness, but without mass, rebound, or guarding. EXTREMITIES: Without edema. NEUROLOGICAL: He is alert and oriented. LABORATORIES: PT 13.0 with INR 1.1. His hemoglobin on admission was 14.2 and repeat was 15.0. Platelets 195,000. White count 12.7. Normal electrolytes. BUN 14, creatinine 0.7. Normal LFTs except for an alkaline phosphatase of 133. Albumin 4.6. Lipase of 10. CT scan of the chest, abdomen, and pelvis describes some thickening of the distal esophagus in a circumferential pattern. There is no obvious mass. There was no evidence of any pulmonary embolism. There appeared to be a destructive lesion in the right rib with a suspected fracture. No other acute abnormalities were noticed. IMPRESSION: Given the patient's clinical history in regard to the vomiting, heartburn, abnormal CT scan of the esophagus, and recent bleeding, this speaks certainly for at least erosive esophagitis. I would also want to exclude any type of esophageal neoplasm. At this point, he appears stable, but I would recommend upper endoscopy with monitored anesthesia care tomorrow by either myself or Dr. Bell for further evaluation. Full consent was obtained for that, including risks of bleeding and perforation. In the meantime, I will continue his IV PPI and follow his hemoglobin. He will be kept n.p.o. after midnight. I did advise the patient that this most likely does reflect erosive esophagitis as opposed to neoplasm, but nonetheless, the endoscopy is important to do to make a definitive diagnosis. I did advise him that I would want to send him home on omeprazole 40 mg daily and keep him on that long-term. If he has significant erosive esophagitis, then we may need to repeat the endoscopy in 2 to 3 months to be sure there is adequate healing. However, that would tend to depend on his status in regard to the possible metastatic prostate cancer. This has all been discussed in detail with the patient. He is comfortable with the plan. Thank you for the consultation. MD STAN Ronquillo/[place] / [id number]
[2023-02-02 03:57] VITALS: BP 145/72; PULSE 65; RESP 16; TEMP 36.6; O2SAT 96
[2023-02-02] MEDS: Cyclobenzaprine HCl 10 MG TABLET PO (04:10)
[2023-02-02] MEDS: Pantoprazole Sodium 40 MG/10 ML VIAL IVPUSH (05:39)
[2023-02-02 06:54] LABS: MANUAL DIFF FLAG NO
[2023-02-02 07:00] LABS: Basophils Percent Auto 0.2 % (0-2); Eosinophils Percent Auto 0.2 % (0-4); Hemoglobin 13.3 g/dl (14.0-18.0); Imm Gran Abs Auto 0.03 X10*3/uL (0.00-0.03); Imm Gran Pct Auto 0.2 % (0.0-0.4); Lymphocytes Absolute Auto 1.4 X10*3/uL (1.2-4.9); Lymphocytes Percent Auto 11.4 % (20-40); Mean Corpuscular HGB Conc 33.3 g/dl (31.0-36.0); Mean Corpuscular Hemoglobin 29.8 pg (27.0-33.0); Mean Corpuscular Volume 89.7 fL (80.0-98.0); Mean Platelet Volume 10.6 fL (9.4-12.4); Monocytes Absolute Auto 1.2 X10*3/uL (0.1-1.2); Monocytes Percent Auto 9.5 % (2-11); Neutrophils Absolute Auto 9.6 x10*3/uL (2.0-8.3); Neutrophils Percent Auto 78.5 % (45-73); Platelet Count 172 X10*3/uL (160-400); Red Blood Count 4.46 X10*6/uL (4.60-5.80); Red Cell Distribution Width 13.6 % (11.0-16.0); White Blood Count 12.2 X10*3/uL (4.8-10.8)
[2023-02-02 07:26] LABS: Anion Gap 13 (12-20); Blood Urea Nitrogen 14 mg/dL (9-16); Calcium 8.9 mg/dL (8.4-10.2); Carbon Dioxide 25 mmol/L (22-29); Chloride 105 mmol/L (96-108); Creatinine Clr Calc Pharmacy 124.1; Estimated Glomerular Filt Rate > 60; Glucose Random 89 mg/dL (60-115); Potassium 3.5 mmol/L (3.3-5.1); Sodium 139 mmol/L (135-145)
[2023-02-02 07:30] VITALS: BP 143/69; PULSE 65; RESP 20; TEMP 37.1; O2SAT 96
[2023-02-02] MEDS: Lidocaine 4 % Patch ADH..PATCH 1 PATCH TRANSDERMA (08:14)
[2023-02-02] MEDS: 0.9 % Sodium Chloride Flush 3 ML SYRINGE IVFLUSH (08:15)
[2023-02-02] MEDS: amLODIPine Besylate 5 MG TABLET PO (08:17)
[2023-02-02] MEDS: Acetaminophen 325 MG TABLET PO (08:17)
[2023-02-02] MEDS: oxyCODONE HCl Immed Release 5 MG TABLET PO (08:17)
[2023-02-02 10:19] VITALS: BP 141/75; PULSE 85; RESP 16; TEMP 36.9; O2SAT 96
--- NOTE | 2023-02-02 10:55 | HO.ANESPROP2 ---
HPI - Anesthesia Eval Consult details Narrative: for EGD PMFSH Active Problems Active Problems: All Active Problems (Updated 02/01/23 @ 17:38 by Patti Ordoñez MD) Prostate cancer metastatic to bone (Acute) Acute upper gastrointestinal bleeding (Acute) Asthma (Acute) MDD (major depressive disorder), recurrent episode (Acute) HTN (hypertension) (Acute) Hypogonadism in male (Acute) Pathologic rib fracture (Acute) Hyperlipidemia (Acute) BURNS (dyspnea on exertion) (Acute) GABRIELE (generalized anxiety disorder) (Acute) Annual physical exam (Acute) Cough (Acute) Fracture of glenoid cavity and neck of right scapula (Acute) Arthritis of right elbow (Acute) Arthritis of right shoulder region (Acute) Acquired deformity of right elbow (Acute) Right shoulder pain (Acute) Prostate cancer (Acute) Borderline high cholesterol (Acute) Constipation (Acute) Reactive airway disease (Acute) Skin lesion (Acute) GERD (gastroesophageal reflux disease) (Acute) Other forms of dyspnea (Acute) Achilles tendon pain (Acute) Arthritis (Acute) Prostate cancer metastatic to bone (Acute) Past Medical History Medical History (Updated 02/01/23 @ 17:38 by Patti Ordoñez MD) Anxiety Asthma HTN (hypertension) Hypogonadism in male MDD (major depressive disorder), recurrent episode Prostate cancer metastatic to bone Functional capacity: wheelchair bound Family History Family History Father Pneumonia Substance abuse Mother CAD (coronary artery disease) CHF (congestive heart failure) Brother Stomach cancer Substance abuse Sister Breast cancer Substance abuse Family history of problems with anesthesia: No Surgical History Surgical History (Updated 02/01/23 @ 17:38 by Patti Ordoñez MD) H/O prostatectomy History of Problems with Anesthesia: No Social History Social History Household Members: Friend(s) Housing: House Do you presently have visiting nurse or other home services: No Alcohol intake: never Patient Tobacco Use Status: Never used Tobacco Years Smoked: 40 yrs e-Cigarette/Vaping Use: Never Used Second Hand Smoke Exposure: No Substance Use Type: Marijuana service: No Current occupational status: unemployed Current occupation: [employer] Cognitive needs: No Hearing needs: No Vision needs: No (Pt went to an eye doctor about 4 years ago. ) Meds Allergies Allergy/AdvReac Type Severity Reaction Status Date / Time [id number] Reductase AdvReac Intermediate Joint and Verified 01/21/23 09:16 Inhibitor muscle pain Active Medications: Current Medications Acetaminophen (Acetaminophen 325 Mg Tablet) 650 mg PO Q6H PRN PRN Reason: Pain, Mild (Pain Scale 1-3) Last Admin: 02/01/23 14:15 Dose: 650 mg Acetaminophen (Acetaminophen 325 Mg Tablet) 325 mg PO BID [facility] Last Admin: 02/02/23 08:17 Dose: 325 mg Amlodipine Besylate (Amlodipine Besylate 5 Mg Tablet) 5 mg PO DAILY [facility]; Protocol Last Admin: 02/02/23 08:17 Dose: 5 mg Cyclobenzaprine HCl (Cyclobenzaprine Hcl 10 Mg Tablet) 10 mg PO BEDTIME PRN PRN Reason: muscle spasm Last Admin: 02/02/23 04:10 Dose: 10 mg Docusate Sodium (Docusate Sodium 100 Mg Capsule) 100 mg PO DAILY PRN PRN Reason: Constipation Lidocaine (Lidocaine 4 % Patch Adh..Patch) 1 patch TRANSDERMA DAILY [facility]; Protocol Last Admin: 02/02/23 08:14 Dose: 1 patch Ondansetron HCl (Ondansetron Hcl 4 Mg/2 Ml Vial) 4 mg IVPUSH Q8H PRN PRN Reason: Nausea and Vomiting Oxycodone HCl (Oxycodone Hcl Immed Release 5 Mg Tablet) 5 mg PO BID [facility] Last Admin: 02/02/23 08:17 Dose: 5 mg Oxycodone HCl (Oxycodone Hcl Immed Release 5 Mg Tablet) 5 mg PO Q6H PRN PRN Reason: severe pain Pantoprazole Sodium (Pantoprazole Sodium 40 Mg/10 Ml Vial) 40 mg IVPUSH BID@0630,1630 [facility] Last Admin: 02/02/23 05:39 Dose: 40 mg Pharmacy Consult (Consult Rx Perform Med Rec) 1 each MISCELLANE ONCE PRN PRN Reason: Consult order Sodium Chloride (0.9 % Sodium Chloride Flush 3 Ml Syringe) 3 ml IVFLUSH QSHIFT [facility] Last Admin: 02/02/23 08:15 Dose: 3 ml Home Medications Medication Instructions Recorded Confirmed Last Taken Type ibuprofen 800 mg tablet 800 mg PO Q8H PRN Pain 02/01/23 02/01/23 Unknown History omeprazole 20 mg capsule,delayed 20 mg PO DAILY@0630 02/01/23 02/01/23 01/31/23 History release Exam Exam Date and Time: February 02, 2023 1055 Height,Weight and Vital Signs: Height 6 ft 3 in Weight 86.183 kg Last Vital Signs Temp 98.5 F 02/02/23 10:19 Pulse 85 02/02/23 10:19 Resp 16 02/02/23 10:19 BP 141/75 H 02/02/23 10:19 Pulse Ox 96 02/02/23 10:19 O2 Del Method Room Air 02/02/23 10:19 Pertinent Lab Results Pertinent Lab Results: Laboratory Tests 02/01/23 02/01/23 02/01/23 06:19 06:19 06:19 WBC 12.7 H RBC 4.99 Hgb 15.0 Hct 43.9 MCV 88.0 MCH 30.1 MCHC 34.2 RDW 13.2 Plt Count 195 MPV 9.7 Immature Gran % (Auto) 0.3 Neut % (Auto) 87.7 H Lymph % (Auto) 7.2 L [place] % (Auto) 4.6 Eos % (Auto) 0.1 Baso % (Auto) 0.1 Lymph # (Auto) 0.9 L [place] # (Auto) 0.6 Eos # (Auto) 0.0 Baso # (Auto) 0.0 Abs Immat Gran (auto) 0.04 H Absolute Neuts (auto) 11.2 H Absolute Nucleated RBC 0.000 Nucleated RBC % (auto) 0.0 PT INR Sodium 139 Potassium 3.5 D Chloride 105 Carbon Dioxide 20 L Anion Gap 18 BUN 14 Creatinine 0.76 Estim Creat Clear Calc 112.7 Estimated GFR > 60 Random Glucose 145 H Calcium 9.5 Magnesium 1.7 Total Bilirubin 1.0 Direct Bilirubin 0.2 AST 17 ALT 20 Alkaline Phosphatase 133 H Troponin I High Sens Total Protein 7.9 Albumin 4.6 Lipase 10 Carcinoembryonic Ag 2.00 Prostate Specific Ag 0.50 Urine Color Yellow Urine Appearance Clear Urine pH 5.5 Ur Specific [place] >= 1.030 H Urine Protein 30 (1+) H Urine Glucose (UA) Negative Urine Ketones 80 Urine Blood Small (1+) H Urine Nitrite Negative Ur Leukocyte Esterase Negative Urine RBC 6-10 H Urine WBC 0-5 Ur Squamous Epith Cells 0-2 Urine Bacteria None Seen Hyaline Casts 0-2 Stool Occult Blood 02/01/23 02/01/23 02/01/23 08:06 08:06 08:06 WBC RBC Hgb Hct MCV MCH MCHC RDW Plt Count MPV Immature Gran % (Auto) Neut % (Auto) Lymph % (Auto) [place] % (Auto) Eos % (Auto) Baso % (Auto) Lymph # (Auto) [place] # (Auto) Eos # (Auto) Baso # (Auto) Abs Immat Gran (auto) Absolute Neuts (auto) Absolute Nucleated RBC Nucleated RBC % (auto) PT 13.0 INR 1.1 Sodium Potassium Chloride Carbon Dioxide Anion Gap BUN Creatinine Estim Creat Clear Calc Estimated GFR Random Glucose Calcium Magnesium Total Bilirubin Direct Bilirubin AST ALT Alkaline Phosphatase Troponin I High Sens 20.3 Total Protein Albumin Lipase Carcinoembryonic Ag Prostate Specific Ag Urine Color Urine Appearance Urine pH Ur Specific [place] Urine Protein Urine Glucose (UA) Urine Ketones Urine Blood Urine Nitrite Ur Leukocyte Esterase Urine RBC Urine WBC Ur Squamous Epith Cells Urine Bacteria Hyaline Casts Stool Occult Blood POSITIVE 02/01/23 02/02/23 02/02/23 11:26 05:45 05:45 WBC 12.2 H RBC 4.46 L Hgb 13.3 L Hct 40.0 L MCV 89.7 MCH 29.8 MCHC 33.3 RDW 13.6 Plt Count 172 MPV 10.6 Immature Gran % (Auto) 0.2 Neut % (Auto) 78.5 H Lymph % (Auto) 11.4 L [place] % (Auto) 9.5 Eos % (Auto) 0.2 Baso % (Auto) 0.2 Lymph # (Auto) 1.4 [place] # (Auto) 1.2 Eos # (Auto) 0.0 Baso # (Auto) 0.0 Abs Immat Gran (auto) 0.03 Absolute Neuts (auto) 9.6 H Absolute Nucleated RBC 0.000 Nucleated RBC % (auto) 0.0 PT INR Sodium 139 Potassium 3.5 Chloride 105 Carbon Dioxide 25 Anion Gap 13 BUN 14 Creatinine 0.69 Estim Creat Clear Calc 124.1 Estimated GFR > 60 Random Glucose 89 Calcium 8.9 D Magnesium Total Bilirubin Direct Bilirubin AST ALT Alkaline Phosphatase Troponin I High Sens 24.1 Total Protein Albumin Lipase Carcinoembryonic Ag Prostate Specific Ag Urine Color Urine Appearance Urine pH Ur Specific [place] Urine Protein Urine Glucose (UA) Urine Ketones Urine Blood Urine Nitrite Ur Leukocyte Esterase Urine RBC Urine WBC Ur Squamous Epith Cells Urine Bacteria Hyaline Casts Stool Occult Blood Airway Mallampati Class: II TM Dist: >3cm Neck ROM: Full Heart: ok Lungs: ok Assessment and Plan Assessment Anesthesia Assessment: Anesthesia Plan Discussed and Chart Reviewed Final Anesthetic Review Family History of Problems with Anesthesia: No History of Problems with Anesthesia: No NPO: Yes ASA Class: III Final Preanesthetic Review: No Changes in Pt Med Stat, Meds/Allgs Chart Reviewed, Consent Obtained/Reviewed and Anes Risks/Benef Reviewed Patient Risk: Intermediate Procedure Risk: Intermediate Anesthetic Plan Anesthetic Plan: MAC: and Agree w/ Assess. and Plan Disposition: Standard PACU
[2023-02-02 11:35] VITALS: BP 121/51; PULSE 77; RESP 20; TEMP 36.6; O2SAT 96
--- NOTE | 2023-02-02 11:43 | PM.EVENT ---
Event Note Date of Service: 02/02/23 Event Note: EGD dictated 5cm length of erosive esophagitis above EGJ without bleeding. Normal stomach and duodenum. Rec: start omeprazole 40 mg daily po advance diet Ok to d/c from GI standpoint. Time Spent With Patient Time: Total time managing care of this patient today ____ minutes.
--- NOTE | 2023-02-02 11:46 | P.BOP_ITS ---
Brief Operative Note Date of Service: 02/02/23 Pre-op diagnosis: UGIB Post-op diagnosis: same Procedure: EGD Surgeon: Gomez Bell Anesthesia: MAC Was an [employer] used for this Procedure?: No Estimated blood loss (mL): 0 Pathology: none sent Condition: stable Disposition: PACU
[2023-02-02 11:50] VITALS: BP 126/54; PULSE 76; RESP 18; TEMP 37.3; O2SAT 98
[2023-02-02 12:10] VITALS: BP 191/85; PULSE 64; RESP 18; TEMP 36.8; O2SAT 97
--- NOTE | 2023-02-02 13:32 | P.DS_ITS ---
DS: Providers Provider Date of Service: 02/02/23 Date of admission: 02/01/23 12:47 Date of discharge: 02/02/23 Primary care physician: Gadiel Tripp PA-C Consults: 02/01/23 12:46 Consult to Gastroenterology Routine Consulting Provider: Wilfred Manley Reason for consultation: UGIB 02/01/23 13:23 Consult to Hematology / Oncology Routine Consulting Provider: Wilfred Maynard Reason for consultation: righit pleural thickening, hx metastatic prstate cancer 02/02/23 07:49 Consult to Hematology / Oncology Routine Consulting Provider: Wilfred Maynard Reason for consultation: Dr Maynard's pt. Rib lesion -> met prostate CA? DS: Diagnosis Discharge Diagnosis (1) Prostate cancer metastatic to bone: Status: Acute (2) Acute upper gastrointestinal bleeding: Status: Acute (3) Erosive esophagitis: Status: Acute (4) Pathologic rib fracture: Status: Acute DS: Summary Hospital Course Hospital Course: from admission H+P by hospitalist ANETA Avendano, 02/01/23: 67 year old male with history of GERD, hypogonadism, hx prostate cancer with bony metastasis treated with radiation in 2005 followed by lupron injections w/p prostatectomy, reactive airway disease presented to the ED for evaluation of right-sided posterior lateral rib pain radiating to RUQ x2 days with associated nausea and vomiting. Also reporting generalized abdominal pain. Denies any history of trauma or recent illness. He has had increased reflux with increasing epigastric pain with burning radiating into the chest with dark emesis (no larissa blood or coffee grounds per patient), black stools. Denies taking any blood thinner. Has remote history cigarette smoking, occassional etoh use, no illicit drugs. he also reports urinary frequency but states this is long standing and following with Dr. Chen. On arrival, VSS. Mild leukocytosis 12.7, likely reactive. H/H 15.0/43.9%. Renal function normal and electrolytes unremarkable. UA wtih 1_ blood, 1+ protein, elevated SG. Stool occult positive. CXR negative. CT abd/pelvis with contrast negative for acute abnormality. CTA chest showing lesion with pleural thickening adjacent to the rib cage on the right with destructive lesions of the posterior aspect of the right 7th rib questionable fracture on right 7th rib (bone scan 2 weeks ago negative per patient), circumferential thickening of the distal esophagus.? ED provider discussed case with Dr. Manley recommending admission.? He has been treated with 80 mg IV Protonix and was started on Protonix drip. He was admitted to the medical-surgical floor on IV PPI. GI was consulted. Hemoglobin was stable. He underwent EGD on 02/02/23, which showed a 5cm length of erosive esophagitis above the EGJ without bleeding; normal stomach and duodenum. Omeprazole was increased to 40 mg daily. He was instructed to avoid NSAIDs and aspirin. He will follow up with GI in 1-2 weeks. As for the rib lesion concerning for metastasis from prostate cancer, his oncologist, Dr Maynard was consulted, and will workup and manage the lesion as an outpatient. He was instructed to continue Percocet for pain control; lidocaine patch was also increased Time Spent with Patient Time attestation: Total time managing care of this patient today ____ minutes. Discharge coordination time: Greater than 30 minutes Quality: Safe Use of Opioids Does Pt have an Active Cancer Diagnosis on the Problem List?: Yes Opioid Measure Date for [facility] Report: 01/03/23 Opioid Measure Time for [facility] Report: 13:43 Quality: Stroke Does the patient have a stroke diagnosis?: No Physical Exam Vital Signs: Vital Signs: Last Vital Signs Temp 98.3 F 02/02/23 12:10 Pulse 64 02/02/23 12:10 Resp 18 02/02/23 12:10 BP 191/85 H 02/02/23 12:10 Pulse Ox 97 02/02/23 12:10 O2 Del Method Room Air 02/02/23 12:10 BMI result Body Mass Index 23.7 Gen: in no acute distress HEENT: sclera anicteric, moist mucus membranes Neck: supple Lungs: clear to auscultation bilaterally Heart: regular rate and rhythm, no murmurs Abd: soft, non-tender, non-distended Ext: no edema Skin: warm/well-perfused Neuro: alert and oriented x3, no focal findings Psych: appropriate affect DS: Data Data Completed and Pending Completed studies during hospitalization [Text1]: Laboratory Results WBC 12.2 X10*3/uL (4.8-10.8) H 02/02/23 05:45 RBC 4.46 X10*6/uL (4.60-5.80) L 02/02/23 05:45 Hgb 13.3 g/dl (14.0-18.0) L 02/02/23 05:45 Hct 40.0 % (42.0-52.0) L 02/02/23 05:45 MCV 89.7 fL (80.0-98.0) 02/02/23 05:45 MCH 29.8 pg (27.0-33.0) 02/02/23 05:45 MCHC 33.3 g/dl (31.0-36.0) 02/02/23 05:45 RDW 13.6 % (11.0-16.0) 02/02/23 05:45 Plt Count 172 X10*3/uL (160-400) 02/02/23 05:45 MPV 10.6 fL (9.4-12.4) 02/02/23 05:45 Immature Gran % (Auto) 0.2 % (0.0-0.4) 02/02/23 05:45 Neut % (Auto) 78.5 % (45-73) H 02/02/23 05:45 Lymph % (Auto) 11.4 % (20-40) L 02/02/23 05:45 [place] % (Auto) 9.5 % (2-11) 02/02/23 05:45 Eos % (Auto) 0.2 % (0-4) 02/02/23 05:45 Baso % (Auto) 0.2 % (0-2) 02/02/23 05:45 Lymph # (Auto) 1.4 X10*3/uL (1.2-4.9) 02/02/23 05:45 [place] # (Auto) 1.2 X10*3/uL (0.1-1.2) 02/02/23 05:45 Eos # (Auto) 0.0 X10*3/uL (0.0-0.4) 02/02/23 05:45 Baso # (Auto) 0.0 X10*3/uL (0.0-0.2) 02/02/23 05:45 Abs Immat Gran (auto) 0.03 X10*3/uL (0.00-0.03) 02/02/23 05:45 Absolute Neuts (auto) 9.6 x10*3/uL (2.0-8.3) H 02/02/23 05:45 Absolute Nucleated RBC 0.000 X10*3/uL (0.0-0.012) 02/02/23 05:45 Nucleated RBC % (auto) 0.0 /100WBC (0.0-0.2) 02/02/23 05:45 PT 13.0 SEC (10.0-13.1) 02/01/23 08:06 INR 1.1 (0.9-1.1) 02/01/23 08:06 Sodium 139 mmol/L (135-145) 02/02/23 05:45 Potassium 3.5 mmol/L (3.3-5.1) 02/02/23 05:45 Chloride 105 mmol/L (96-108) 02/02/23 05:45 Carbon Dioxide 25 mmol/L (22-29) 02/02/23 05:45 Anion Gap 13 (12-20) 02/02/23 05:45 BUN 14 mg/dL (9-16) 02/02/23 05:45 Creatinine 0.69 mg/dL (0.5-1.4) 02/02/23 05:45 Estim Creat Clear Calc 124.1 02/02/23 05:45 Estimated GFR > 60 02/02/23 05:45 Random Glucose 89 mg/dL (60-115) 02/02/23 05:45 Calcium 8.9 mg/dL (8.4-10.2) D 02/02/23 05:45 Magnesium 1.7 mg/dL (1.6-2.6) 02/01/23 06:19 Total Bilirubin 1.0 mg/dL (0.0-1.0) 02/01/23 06:19 Direct Bilirubin 0.2 mg/dL (0.0-0.5) 02/01/23 06:19 AST 17 U/L (5-37) 02/01/23 06:19 ALT 20 U/L (0-40) 02/01/23 06:19 Alkaline Phosphatase 133 U/L (39-117) H 02/01/23 06:19 Troponin I High Sens 24.1 ng/L (<3.5-35.0) 02/01/23 11:26 Total Protein 7.9 g/dL (6.5-8.0) 02/01/23 06:19 Albumin 4.6 g/dL (3.5-5.0) 02/01/23 06:19 Lipase 10 U/L (8-78) 02/01/23 06:19 Carcinoembryonic Ag 2.00 ng/mL 02/01/23 06:19 Prostate Specific Ag 0.50 ng/mL (<0.05-4.0) 02/01/23 06:19 Urine Color Yellow 02/01/23 06:19 Urine Appearance Clear 02/01/23 06:19 Urine pH 5.5 (5.0-9.0) 02/01/23 06:19 Ur Specific [place] >= 1.030 (1.005-1.025) H 02/01/23 06:19 Urine Protein 30 (1+) mg/dL (Neg-Trace) H 02/01/23 06:19 Urine Glucose (UA) Negative mg/dL (Negative) 02/01/23 06:19 Urine Ketones 80 mg/dL (Negative) 02/01/23 06:19 Urine Blood Small (1+) (Negative) H 02/01/23 06:19 Urine Nitrite Negative (Negative) 02/01/23 06:19 Ur Leukocyte Esterase Negative (Negative) 02/01/23 06:19 Urine RBC 6-10 /HPF (0-2) H 02/01/23 06:19 Urine WBC 0-5 /HPF (0-5) 02/01/23 06:19 Ur Squamous Epith Cells 0-2 /HPF (0-2) 02/01/23 06:19 Urine Bacteria None Seen (None Seen) 02/01/23 06:19 Hyaline Casts 0-2 /LPF (0-2) 02/01/23 06:19 Stool Occult Blood POSITIVE (NEGATIVE) 02/01/23 08:06 Impressions Chest X-Ray 02/01/23 07:10 IMPRESSION: Unremarkable examination. Abdomen Ultrasound 02/01/23 08:20 IMPRESSION: Hepatic steatosis. Abdomen/Pelvis CT 02/01/23 09:44 IMPRESSION: 1. No evidence of pulmonary embolism. 2. Pleural thickening adjacent to the rib cage on the right with destructive lesion of the posterior aspect of rib #7 with suspected fracture along the paraspinal line. Correlate with history. 3. Circumferential thickening of the distal esophagus, correlate clinically. 4. Status post prostatectomy. VTE: negative. Kathy Mckeon DO Licensed Occupational Therapist Chest CTA 02/01/23 09:44 IMPRESSION: 1. No evidence of pulmonary embolism. 2. Pleural thickening adjacent to the rib cage on the right with destructive lesion of the posterior aspect of rib #7 with suspected fracture along the paraspinal line. Correlate with history. 3. Circumferential thickening of the distal esophagus, correlate clinically. 4. Status post prostatectomy. VTE: negative. Kathy Mckeon DO Licensed Occupational Therapist Discharge Plan Discharge Anticipated Discharge Date/Time: 02/02/23 16:22 Patient Disposition: Home, Self-Care Discharge Diagnosis: upper GI bleed due to erosive esophagitis, pathologic fracture of right 7th rib Referrals: Wilfred Maynard MD [Physician] - 1 Week Gadiel Tripp PA-C [Primary Care Provider] - 1 Week Wilfred Manley [Physician] - 1 Week Discharge Medications: New omeprazole 40 mg Capsule,Delayed Release(Dr/Ec) 40 mg PO DAILY@0630 Qty: 30 0RF lidocaine [Lidoderm] 5 % adhesive patch,medicated 1 patch topical DAILY Qty: 30 0RF Rx Instructions: leave on most painful area for up to 12 hrs Continued amlodipine 2.5 mg tablet 5 mg PO DAILY 90 Days Qty: 180 3RF cyclobenzaprine 10 mg tablet 10 mg PO BEDTIME PRN (Reason: muscle spasm) 30 Days Qty: 30 6RF oxycodone-acetaminophen 5-325 mg tablet 1 tab PO BID 30 Days Qty: 60 0RF Discontinued ibuprofen 800 mg Tablet 800 mg PO Q8H PRN (Reason: Pain) omeprazole 20 mg capsule,delayed release(DR/EC) 20 mg PO DAILY@0630 Discharge Orders: Discharge Order (Routine); Ordered 02/02/23 Ordered By: Miquel Heath Diet: Advance to usual diet Activity on Discharge: As tolerated Stand Alone Forms: Patient Portal Discharge page Care Plan Goals: resolution of GI bleeding treatment of metastasis to rib Health Concerns: upper GI bleed due to erosive esophagitis, pathologic fracture of right 7th rib Plan of Treatment: stop ibuprofen, naproxen and all NSAIDs avoid aspirin increase omeprazole to 40 mg daily follow up with GI in 1-2 weeks follow up with Oncology [Dr Maynard] in 1-2 weeks for diagnosis and management of rib lesion use Percocet as previously prescribed and add lidocaine patch Please follow up with your primary care doctor within 1 week. Return to the hospital if you experience recurrent or worsening symptoms. Assessment: See Discharge Summary.
--- NOTE | 2023-02-02 13:45 | MHC.CM.PN ---
PATIENT LIVES WITH A FRIEND AND IS SFULLY INDEPENDENT CAR IS IN LOT HE IS AWARE OF TODAY'S DC AND WILL DRIVE SELF HOME. HCP IS SISTER AND A COPY REQUESTED IF HE IS TO RETURN NO DME OR [facility] HOME TODAY-SELF CARE IMM 02/02 IN CHART
--- NOTE | 2023-02-02 22:51 | OP_ITS ---
DATE OF SERVICE: 02/02/2023 SURGEON: Gomez Bell MD INDICATIONS: Upper GI bleeding. PREOPERATIVE DIAGNOSIS: POSTOPERATIVE DIAGNOSIS: PROCEDURE PERFORMED: Upper endoscopy. ESTIMATED BLOOD LOSS: COMPLICATIONS: ANESTHESIA: Monitored anesthesia care. ASSISTANTS: SPECIMENS: DESCRIPTION OF PROCEDURE: A history and physical was performed. The risks and benefits of the procedure were explained to the patient. Informed consent was obtained. The patient was placed in the left lateral decubitus position. The Olympus video gastroscope was introduced into the esophagus, stomach, and duodenum. Examination was performed. The scope was removed. He tolerated the procedure well and was returned to the recovery area in stable condition. FINDINGS: Esophagus: There was erosive esophagitis extending from the EG junction at 44 cm 5 cm to 39 cm. There was no active bleeding. There was no evidence of malignancy. There was a small sliding hiatal hernia. Stomach: The stomach showed no evidence of masses, ulcers, or polyps. Duodenum: The bulb and 2nd portion were normal. IMPRESSION: Erosive esophagitis. RECOMMENDATION: 1. Advance diet. 2. Omeprazole 40 mg daily. 3. Outpatient followup in 8 to 12 weeks. MD SUJIT Peralta/MODL / [id number]
== END 2023-02-02 14:07 | disposition home or self-care (01) | DRG 381 ==
LOC: HO.ED 11:55 → HO.EDOVER 12:58 → HO.S3 14:13
PROVIDERS: Internal Medicine Gastroenterology; Internal Medicine Medical Oncology; Physician Assistant; Admitting Provider Physician Assistant; Emergency Provider Emergency Medicine; PCP Physician Assistant; Visit Provider Family Medicine
PROC: 0DJ08ZZ Inspection of Upper Intestinal Tract, Via Natural or Artificial Opening Endoscopic (ICD-10-PCS; CPT 43235; principal; 2023-02-02 10:20)
DX: K22.11 Ulcer of esophagus with bleeding (principal); C79.51 Secondary malignant neoplasm of bone; F33.9 Major depressive disorder, recurrent, unspecified; M84.58XA Pathological fracture in neoplastic disease, other specified site, initial encounter for fracture; K21.01 Gastro-esophageal reflux disease with esophagitis, with bleeding; K44.9 Diaphragmatic hernia without obstruction or gangrene; I10 Essential (primary) hypertension; F41.9 Anxiety disorder, unspecified; E78.5 Hyperlipidemia, unspecified; C61 Malignant neoplasm of prostate; Z79.899 Other long term (current) drug therapy
CPT/HCPCS: 36415; 71045; 71275; 74177; 76705; 80048; 80076; 81001; 82272; 82378; 83690; 83735; 84153; 84484; 85025; 85610; 99285; J2270; J2405; J3010; Q9967

== ENCOUNTER → 2023-02-04 09:38 | Outpatient (BNVA) | payer MEDICARE, MEDICAID, SELFPAY | PROVIDERS: PCP Physician Assistant; Visit Provider Urology | DX: C61 Malignant neoplasm of prostate (principal); C79.51 Secondary malignant neoplasm of bone | CPT/HCPCS: 99212 ==

== ENCOUNTER 2023-02-24 11:46 | Outpatient (REF) | payer MEDICARE, MEDICAID, SELFPAY ==
[2023-02-24 13:33] LABS: MANUAL DIFF FLAG NO
[2023-02-24 13:40] LABS: Basophils Percent Auto 0.5 % (0-2); Eosinophils Absolute Auto 0.2 X10*3/uL (0.0-0.4); Eosinophils Percent Auto 3.4 % (0-4); Hematocrit 37.9 % (42.0-52.0); Hemoglobin 12.6 g/dl (14.0-18.0); Imm Gran Abs Auto 0.02 X10*3/uL (0.00-0.03); Imm Gran Pct Auto 0.3 % (0.0-0.4); Lymphocytes Absolute Auto 1.7 X10*3/uL (1.2-4.9); Lymphocytes Percent Auto 27.5 % (20-40); Mean Corpuscular HGB Conc 33.2 g/dl (31.0-36.0); Mean Corpuscular Hemoglobin 30.7 pg (27.0-33.0); Mean Corpuscular Volume 92.2 fL (80.0-98.0); Monocytes Absolute Auto 0.6 X10*3/uL (0.1-1.2); Monocytes Percent Auto 8.8 % (2-11); Neutrophils Absolute Auto 3.7 x10*3/uL (2.0-8.3); Neutrophils Percent Auto 59.5 % (45-73); Platelet Count 211 X10*3/uL (160-400); Red Blood Count 4.11 X10*6/uL (4.60-5.80); Red Cell Distribution Width 14.1 % (11.0-16.0); White Blood Count 6.3 X10*3/uL (4.8-10.8)
== END 2023-02-24 11:47 | disposition home or self-care (01) ==
LOC: HO.10HDL 11:46
PROVIDERS: Visit Provider Physician Assistant
DX: K62.5 Hemorrhage of anus and rectum (principal); C79.51 Secondary malignant neoplasm of bone; C80.1 Malignant (primary) neoplasm, unspecified; M84.48XA Pathological fracture, other site, initial encounter for fracture; M85.80 Other specified disorders of bone density and structure, unspecified site
CPT/HCPCS: 36415; 82306; 85025

== ENCOUNTER → 2023-03-03 13:27 | Outpatient (BNVA) | payer MEDICARE, MEDICAID, SELFPAY | PROVIDERS: Visit Provider Internal Medicine Cardiovascular Disease | DX: I10 Essential (primary) hypertension (principal); R06.09 Other forms of dyspnea | CPT/HCPCS: 93005; 99212 ==

== ENCOUNTER 2023-03-16 15:15 | Outpatient (AMB) | payer MEDICARE, MEDICAID, SELFPAY ==
--- NOTE | 2023-03-16 15:17 | MHC.PC.OV ---
Intake Visit Reasons: depression/anxiety Allergies [id number] Reductase Inhibitor Adverse Reaction (Intermediate, Verified 03/16/23 15:17) Joint and muscle pain Tobacco use date assessed: 02/24/23 Fall risk assessment: No Falls in past year Last assessed Fall Risk: 03/16/23 Dental Screening Dental Screen Date: 03/16/23 Did you have a dental visit in the last 12 months?: Yes Did you have a dental problem in the last 6 months where you did not have access to dental care?: No Was dental information given to patient?: Patient has dentist HPI depression/anxiety HPI Details Patient is a 67-year-old male here today as a walk-in urgent visit. 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 Has been very depressed over the last several weeks. He reports low appetite, racing thoughts, stress and feeling of being overwhelmed. Has lost 10 lb since last PCP office visit Family concerned as well. Patient has had depression before in the past and was on Lexapro and spoke with mental health therapy which was effective for him. [facility] Medical History Anxiety Asthma HTN (hypertension) Hypogonadism in male MDD (major depressive disorder), recurrent episode Prostate cancer metastatic to bone Surgical History H/O endoscopy H/O prostatectomy Family History Father Pneumonia Substance abuse Mother CAD (coronary artery disease) CHF (congestive heart failure) Brother Stomach cancer Substance abuse Sister Breast cancer Substance abuse Social History Household Members: Friend(s) Housing: House Do you presently have visiting nurse or other home services: No Alcohol intake: never Patient Tobacco Use Status: Never used Tobacco Years Smoked: 40 yrs e-Cigarette/Vaping Use: Never Used Second Hand Smoke Exposure: No Substance Use Type: Marijuana service: No Current occupational status: unemployed Current occupation: [employer] Cognitive needs: No Hearing needs: No Vision needs: No (Pt went to an eye doctor about 4 years ago. ) Questionnaire PHQ-9 Over the last 2 weeks, how often have you been bothered by any of the following problems? 1. Little interest or pleasure in doing things: nearly every day 2. Feeling down, depressed, or hopeless: nearly every day 3. Trouble falling or staying asleep, or sleeping too much: not at all 4. Feeling tired or having little energy: not at all 5. Poor appetite or overeating: not at all 6. Feeling bad about yourself - or that you are a failure or have let yourself or your family down: not at all 7. Trouble concentrating on things, such as reading the newspaper or watching television: not at all 8. Moving or speaking so slowly that other people could have noticed. Or the opposite - being so fidgety or restless that you have been moving around a lot more than usual: not at all 9. Thoughts that you would be better off or of hurting yourself in some way: several days Total score: 7 Depression Screening Interpretation: Positive 54300 - PHQ-9 Billing: Yes Source: Developed by Drs. Wilfred Obando, Darshana Vaz, Chip Maya and colleagues, with an educational damion from [employer]. Thrive Questionnaire Date Thrive assessed: 03/16/23 I am a: Patient What is your living situation today?: I have a steady place to live Within the past 12 months, did the food you bought not last and you didn't have the money to get more?: Never true Within the past 12 months, did you worry whether your food would run out before you got money to buy more?: Never true Do you have trouble paying for medicines?: No Do you have trouble getting transportation to medical appointments?: No Do you have trouble paying your heating and electricity bill?: No Do you have trouble taking care of your child, family member or friend?: No Do you have trouble with day-to-day activities such as bathing, preparing meals, shopping, managing finances, etc.?: No Are you currently unemployed and looking for a job?: No Are you interested in more education?: No Currently or been in a relationship where the following occur: no concerns reported AUDIT C Alcohol Use Questionnaire (AUDIT-C) 1. How often do you have a drink containing alcohol?: Never 3. How often do you have six or more drinks on one occasion?: Never Total Score: 0 Score Reviewed/Action Taken: Yes GABRIELE-7 AMB Questionnaire GABRIELE-7 Date GABRIELE - 7 assessed: 01/21/23 Feeling nervous, anxious, or on edge: 3 = Nearly every day Not being able to stop or control worryin = Nearly every day Worrying too much about different things: 3 = Nearly every day Trouble relaxin = Nearly every day Being so restless that it is hard to sit still: 3 = Nearly every day Becoming easily annoyed or irritable: 3 = Nearly every day Feeling afraid as if something awful might happen: 3 = Nearly every day Total GABRIELE-7 score (0-4 normal; 5-9 mild; 10-14 moderate; 15-21 severe): 21 Source: Developed by Drs. Wilfred Obando, Darshana Vaz, Chip Maya and colleagues, with an educational damion from [employer]. GABRIELE-7 Assessment Billing GABRIELE-7 Assessment Tool: GABRIELE-7 Assessment 83271 Review of Systems Const Denies headache(s) Eyes Denies loss of vision ENT Denies vertigo, Denies dizziness, Denies headache(s) and Denies sore throat Card Denies chest pain, Denies leg edema and Denies lightheadedness Resp Denies cough, Denies hemoptysis and Denies wheezing GI Denies abdominal pain, Denies melena, Denies constipation, Denies diarrhea and Denies vomiting Denies dysuria, Denies urinary frequency and Denies urinary urgency Musc Denies arthralgias, Denies joint swelling, Denies numbness and Denies tingling Neuro Denies Abnormal speech present, Denies behavioral changes, Denies vertigo, Denies dizziness, Denies headache(s), Denies loss of vision, Denies memory loss, Denies numbness and Denies tingling Psych Reports anxiety, Denies behavioral changes, Reports change in appetite, Reports depression, Reports difficulty concentrating, Reports irritability, Denies memory loss and Reports panic attacks Yasir/Lymph Denies easy bleeding and Denies easy bruising Aller/Immun Denies wheezing Physical exam (Primary Care) Tobacco/Smoking Status: Tobacco use Status Tobacco use date assessed 02/24/23 03/16/23 15:18 Patient Tobacco Use Status Never used Tobacco 03/16/23 15:18 e-Cigarette/Vaping Use Never Used 03/16/23 15:18 PHQ-9: PHQ-9 Score PHQ-9: Total score 7 03/16/23 15:18 Depression Screening Interpretation: Positive Thrive Assessment: Date of Thrive Assessment Date Thrive assessed 03/16/23 03/16/23 15:18 Currently or been in a relationship where the following occur: no concerns reported Const General: healthy appearing, no acute distress, alert and awake Nutritional Appearance: well nourished Orientation/consciousness: oriented to person, oriented to place and oriented to time HENMT Ears: TM's normal bilaterally General nose exam: Normal nasal mucous membranes and turbinates present Eyes Conjunctivae: conjunctivae normal Sclerae: sclerae normal Pupils: Equal, round and reactive pupils present Neck Neck: Yes no lymphadenopathy and Yes no JVD Thyroid: Thyroid normal Carotids: no bruits Resp Effort & Inspection: normal respiratory effort and not tachypneic Auscultation: no crackles, no rales, no rhonchi and no wheezes Cardio Rate: regular rate Rhythm: regular rhythm Heart sounds: no murmurs and normal S1 and S2 GI Palpation (GI): Soft to palpation, nontender, no hepatomegaly and no splenomegaly Auscultation: normal bowel sounds Skin General skin exam: no rashes or lesions noted and dry skin Neuro General: oriented to person, oriented to place and oriented to time Cranial nerves: Yes Equal, round and reactive pupils present Speech: No Abnormal speech present Gait exam (Neuro): Normal gait present Motor exam (neuro): no tremor noted Extrem Right upper extremity: full ROM Left upper extremity: full ROM Right lower extremity: full ROM; no edema Left lower extremity: full ROM; no edema Psych Mental Status: mental status grossly normal Speech and movement: Normal speech and movement present Affect: normal affect Attitude: cooperative Thought process: Normal thought process present Assessment and Plan Assessment & Plan (1) GABRIELE (generalized anxiety disorder): Code(s): F41.1 - Generalized anxiety disorder Plan: Having signs symptoms of anxiety and major depressive disorder. Seems to have worsened over the last few weeks. Has happened before in the past and was treated with SSRI therapy and cognitive behavioral therapy. Have set him up with office liaison to connect him with mental health services. Restart Lexapro 5 mg and will give a few low-dose lorazepam see use at night for sleep as he reports having racing thoughts and feeling overwhelmed and has not been able to sleep. Did discuss the potential respiratory depression side effects of benzodiazepines and opiate pain medications and patient agrees and understands not to take them on the same days. Medications: Discontinued omeprazole 20 mg PO DAILY 90 days 90 caps 1RF K21.9 - Gastro-esophageal reflux disease without esophagitis Coding Level of Care Code Est Pt Level 3 (57750) Diagnoses GABRIELE (generalized anxiety disorder) F41.1 Additional Codes GABRIELE-7 Assessment Billing - GABRIELE-7 Assessment Tool: GABRIELE-7 Assessment 32718 ([id number])
== END 2023-03-16 15:30 | disposition home or self-care (01) ==
LOC: HO.HMGH 15:15
PROVIDERS: PCP Physician Assistant; Visit Provider Physician Assistant
DX: F41.1 Generalized anxiety disorder (principal)
CPT/HCPCS: 96127; 99213

== ENCOUNTER 2023-03-19 09:49 | Outpatient (AMB) | payer MEDICARE, MEDICAID, SELFPAY ==
--- NOTE | 2023-03-19 10:14 | MHC.OFFWIV ---
Intake Vital Signs 03/19/23 10:17 Height 6 ft 3 in BP 120/64 Blood Pressure Location Lt brachial Position Sitting Pulse 60 Pulse Source Pulse Oximeter Temp 96.7 F L Temp Source Temporal Artery Scan Pulse Oximetry (%) 96 Oxygen Delivery Method Room Air Intake Visit Reasons: EP losing weight for weeks, abd pain(lobby) Intake Note: Pt is here c/o losing weight for weeks. Pt states he has no apetite for the last month. Patient Tobacco Use Status: Never used Tobacco Allergies [id number] Reductase Inhibitor Adverse Reaction (Intermediate, Verified 03/19/23 10:14) Joint and muscle pain Do you need a note to return to daycare/school/sports/work: No HPI HPI Comments History of Present Illness Details This is a 67-year-old male with history of prostate cancer with concern for recent relapse of prostate cancer with bony metastasis who presents to the office today for a sick visit. Patient is complaining of significant generalized weakness and fatigue with associated loss of appetite, poor oral intake, and significant weight loss over the past 3 weeks. Patient also reports generalized abdominal pain. He denies any nausea/vomiting/diarrhea. He states he has actually been constipated due to lack of eating. He denies any fevers/chills or night sweats. He denies any chest pain or shortness of breath. He reports some mild lightheadedness/dizziness. Patient has also noticed scattered subcutaneous lesions throughout his body. Patient states that he has still been walking about 5 miles a day despite having low energy. He reports drinking a lot of water. Patient states he tried to get in with his primary care physician but he was unable to make an appointment. Vital signs are notable for mild hypothermia with temperature of 96.7? F. PE: ill appearing, TTP to suprapubic region/mid abdomen T 96.7F otherwise PE benign PFSH Medical History Anxiety Asthma HTN (hypertension) Hypogonadism in male MDD (major depressive disorder), recurrent episode Prostate cancer metastatic to bone Surgical History H/O endoscopy H/O prostatectomy Family History Father Pneumonia Substance abuse Mother CAD (coronary artery disease) CHF (congestive heart failure) Brother Stomach cancer Substance abuse Sister Breast cancer Substance abuse Social History Household Members: Friend(s) Housing: House Do you presently have visiting nurse or other home services: No Alcohol intake: never Patient Tobacco Use Status: Never used Tobacco Years Smoked: 40 yrs e-Cigarette/Vaping Use: Never Used Second Hand Smoke Exposure: No Substance Use Type: Marijuana service: No Current occupational status: unemployed Current occupation: [employer] Cognitive needs: No Hearing needs: No Vision needs: No (Pt went to an eye doctor about 4 years ago. ) Review of Systems Const All systems reviewed & are unremarkable except as noted in HPI and below Reports anorexia, Denies chills, Reports fatigue, Denies fever(s), Reports lethargy, Denies night sweats, Reports poor appetite and Reports weight loss Eyes Reports no additional complaints ENT Reports no additional complaints and Reports dizziness Card Reports no additional complaints, Denies chest pain, Denies chest pain at rest, Denies chest pain with activity, Denies dyspnea and Denies dyspnea on exertion Resp Reports no additional complaints, Denies cough, Denies dyspnea and Denies dyspnea on exertion GI Reports no additional complaints, Reports abdominal pain, Reports constipation, Denies diarrhea, Denies nausea and Denies vomiting Reports no additional complaints Musc Reports no additional complaints Skin/Breast Reports system reviewed and no additional complaints, except as documented and Reports lesions Neuro Reports no additional complaints and Reports dizziness Psych Reports no additional complaints Endo Reports no additional complaints and Reports fatigue Yasir/Lymph Reports no additional complaints Aller/Immun Reports no additional complaints Physical Exam Vital Signs: Last Vital Signs Temp 96.7 F L 03/19/23 10:17 Pulse 60 03/19/23 10:17 BP 120/64 03/19/23 10:17 Pulse Ox 96 03/19/23 10:17 Oxygen Delivery Method Room Air 03/19/23 10:17 Const General: no acute distress, well developed, ill appearing chronically and tired appearing Orientation/consciousness: patient oriented x3 HEENT Head: Yes normal to inspection Ears: hearing grossly normal bilaterally General nose exam: Normal external nose present Face and sinus: Yes normal facial exam Mouth: mucous membranes dry Throat: Yes posterior oropharynx normal Eyes General: appearance normal, both eyes and all related structures Pupils: Equal, round and reactive pupils present EOM: EOMs intact bilaterally Chest Chest palpation & inspection: normal inspection of the chest Resp Effort & Inspection: normal respiratory effort Auscultation: clear to auscultation bilaterally, no rales, no rhonchi and no wheezes Cardio Rate: regular rate Rhythm: regular rhythm Heart sounds: no gallops, no murmurs and no rubs Peripheral pulses: Peripheral pulses 2+ throughout GI Palpation (GI): Tenderness to palpation present (GI) periumbilically and suprapubicly Auscultation: normal bowel sounds Skin Other: 3-4 scattered subcutaneous nodules with overlying erythema noted on patient's abdomen, anterior chest, and lower back. No cellulitic changes. No purulent drainage. No fluctuance or induration to suggest abscess. Neuro General: patient oriented x3 Cranial nerves: Yes CN's II-XII intact bilaterally and Yes Equal, round and reactive pupils present Cognition (Neuro): normal cognition Gait exam (Neuro): Normal gait present Motor exam (neuro): 5/5 motor strength present throughout Psych Affect: Sad affect present Assessment & Plan Assessment & Plan (1) Weakness: Code(s): R53.1 - Weakness Plan This is a 67-year-old male with past medical history significant for prostate cancer with concern for recent relapse who presented to the office today in the setting of generalized weakness, weight loss, decreased appetite, abdominal pain, and dizziness. Physical exam is notable for a chronically ill-appearing male with dry mucous membranes and mild tenderness to palpation of the suprapubic/periumbilical areas. Vital signs are notable for mild hypothermia with temperature of 96.7? F. Given patient's history of prostate cancer with concern for recent relapse, I voiced my concerns regarding an infectious process versus worsening metastatic/malignant process as cause of patient's symptoms. I recommended patient proceed directly to the emergency room for probable laboratory and radiological workup including CBC, BMP, and magnesium to evaluate for electrolyte disturbance, dehydration, and leukocytosis as well as possible CT abdomen/pelvis to rule out acute intra-abdominal process or worsening metastatic process. Patient was offered an ambulance due to his dizziness, but patient declines. Patient is alert and oriented x4 and he has the competence to make his own medical decisions. Patient is driving directly to the emergency room. Medications: Discontinued omeprazole 20 mg PO DAILY 90 days 90 caps 1RF K21.9 - Gastro-esophageal reflux disease without esophagitis Coding Level of Care Code Est Pt Level 3 (75007) Diagnoses Weakness R53.1
[2023-03-19 10:17] VITALS: BP 120/64; PULSE 60; TEMP 35.9; O2SAT 96
== END 2023-03-19 10:57 | disposition home or self-care (01) ==
PROVIDERS: PCP Physician Assistant; Visit Provider Physician Assistant Medical
DX: R53.1 Weakness (principal)
CPT/HCPCS: 99213

== ENCOUNTER 2023-03-19 11:08 | Emergency (ER) | payer MEDICARE, MEDICAID, SELFPAY ==
--- NOTE | ~2023-03-19 | CT_ITS ---
EXAMINATION: CT ABDOMEN AND PELVIS WITH CONTRAST CLINICAL INFORMATION: Pain. COMPARISON: CT abdomen/pelvis 02/01/2023. TECHNIQUE: Multidetector volumetric images were obtained from the superior aspect of the liver through the pubic symphysis following administration 85 mL of Omnipaque 350 intravenous contrast. Sagittal and coronal reformatted images were obtained on the technologist's workstation. Oral contrast: No This CT examination was performed using dose optimization techniques as appropriate, variously including the following: *Automated exposure control *Adjustment of mA and/or kV according to patient size (this includes techniques or standardized protocols for targeted exams where dose is matched to indication/reason for exam; i.e. extremities or head) *Use of iterative reconstruction technique DLP: 498 mGy-cm FINDINGS: LUNG BASES: No focal consolidation or pleural effusion. LIVER, GALLBLADDER, AND BILIARY TREE: The liver is normal in size, shape, and attenuation. No focal hepatic lesion or biliary ductal dilatation is present. The gallbladder is unremarkable with no evidence of radiopaque gallstones, gallbladder wall thickening, or obvious pericholecystic inflammatory changes. PANCREAS: Diffuse fatty infiltration. No significant peripancreatic free fluid or fat stranding. The main pancreatic duct is nondilated. SPLEEN: Unremarkable. ADRENAL GLANDS: Unremarkable. KIDNEYS AND URETERS: The kidneys are normal in size, shape, and attenuation. No hydronephrosis, hydroureter, or calculi seen. No perinephric stranding. BLADDER: Underdistended limiting assessment for wall thickening. No significant perivesical fat stranding. No intraluminal calculi. GASTROINTESTINAL TRACT: There are a few prominent fluid filled loops of the small bowel, for instance in the lower abdomen on axial image 69 series 3. Colonic diverticulosis without significant pericolonic inflammatory changes. Normal appendix. No evidence of bowel obstruction. ABDOMINAL WALL: No significant hernia is appreciated. LYMPH NODES: Unchanged mild upper mesentery fatty haziness with scattered prominent mesenteric lymph nodes. There is a 2 cm fatty rounded observation with a peripheral rim in the upper abdomen adjacent to the transverse colon image 25 series 3, not significantly changed compared to 02/01/2023. VASCULAR: Scattered atherosclerotic disease. Abdominal aorta is normal in caliber. PELVIC VISCERA: Prostatectomy. No increased soft tissue nodule or mass. OSSEOUS STRUCTURES: No acute or aggressive appearing osseous findings. Chronic L3 Schmorl's nodule. CT/CT abdomen pelvis w IV con IMPRESSION: 1. A few prominent fluid filled loops of small bowel without abrupt transition point or disproportionate dilatation to suspect obstruction, favoring to represent gastroenteritis in the appropriate clinical context. 2. Stable fatty observation with peripheral rim adjacent to the transverse colon suggestive of appendagitis or fat necrosis. 3. Unchanged mild mesenteric fatty haziness with scattered prominent mesenteric lymph nodes, nonspecific could be seen with mesenteric adenitis.
--- NOTE | 2023-03-19 12:33 | ED_ITS ---
HPI - General Adult General Chief complaint: Abdominal Pain Stated complaint: multiple symptoms Time Seen by Provider: 03/19/23 18:01 Source: patient, RN notes reviewed and old records reviewed Mode of arrival: ambulatory Limitations: no limitations History of Present Illness HPI narrative: 67-year-old male with past medical history significant for prostate cancer status post prostatectomy, hypertension, major depressive disorder, anxiety who presents for evaluation of decreased appetite and weight loss. Patient reports that for the last 7-10 days he has had decreased appetite. He denies any significant abdominal pain or nausea but just does feel like eating He reports an approximately 10 lb weight loss in the last 10 days He reports exercising by walking 5 miles daily Patient has follow-up with his PCP on Wednesday. The patient reports that he had an upper endoscopy within the last month which did not show any significant findings except for mild esophagitis Related Data Previous Rx's Medication Instructions Recorded amlodipine 2.5 mg tablet 5 mg PO DAILY 90 days #180 tabs 12/21/22 omeprazole 40 mg capsule,delayed 40 mg PO DAILY@0630 #30 caps 02/02/23 release lidocaine 5 % topical patch 1 patch topical DAILY 30 days #30 02/09/23 (Lidoderm) ea hydrocortisone acetate 25 mg 25 mg ND BID PRN hemorrhoids #24 ea 02/24/23 rectal suppository (Anusol-HC) metoprolol succinate 25 mg 25 mg PO DAILY #60 tabs 03/03/23 tablet,extended release 24 hr (Toprol XL) cyclobenzaprine 10 mg tablet 10 mg PO BEDTIME PRN muscle spasm 03/06/23 30 days #30 tabs oxycodone-acetaminophen 5 mg-325 1 tab PO BID 30 days #60 tabs 03/06/23 mg tablet escitalopram oxalate 5 mg tablet 5 mg PO DAILY 30 days #30 tabs 03/16/23 (Lexapro) lorazepam 0.5 mg tablet 0.5 mg PO BEDTIME anxiety 4 days 03/16/23 #4 tabs Allergies Allergy/AdvReac Type Severity Reaction Status Date / Time [id number] Reductase AdvReac Intermediate Joint and Verified 03/19/23 10:14 Inhibitor muscle pain Review of Systems Constitutional: Constitutional: Denies chills, Denies fever(s) and Reports weight loss Cardiovascular: Cardiovascular: Denies chest pain and Denies dyspnea Respiratory: Respiratory: Denies cough and Denies dyspnea Gastrointestinal: Gastrointestinal: Denies abdominal pain and Denies nausea Musculoskeletal: Musculoskeletal: Denies back pain Psychiatric: Psychiatric: Reports anxiety PMFSH Past Medical History Medical History (Updated 03/19/23 @ 22:03 by Hunter Higgins) Achilles tendon pain Acute upper gastrointestinal bleeding Annual physical exam Anxiety Asthma Borderline high cholesterol BRBPR (bright red blood per rectum) Cough HTN (hypertension) Hypogonadism in male MDD (major depressive disorder), recurrent episode Other forms of dyspnea Pathologic rib fracture Prostate cancer Prostate cancer metastatic to bone Right shoulder pain Surgical History H/O endoscopy H/O prostatectomy Family History Family History Father Pneumonia Substance abuse Mother CAD (coronary artery disease) CHF (congestive heart failure) Brother Stomach cancer Substance abuse Sister Breast cancer Substance abuse Social History Social History Household Members: Friend(s) Housing: House Do you presently have visiting nurse or other home services: No Alcohol intake: never Patient Tobacco Use Status: Never used Tobacco Years Smoked: 40 yrs Smoked in Last 30 Days: No e-Cigarette/Vaping Use: Never Used Second Hand Smoke Exposure: No Use of substances other than those prescribed or required for medical reasons: Yes Substance Use Type: Marijuana Substance Use Frequency: Daily Advance Directives: No Advance Directives Information Provided: No service: No Current occupational status: unemployed Current occupation: [employer] Cognitive needs: No Hearing needs: No Vision needs: No (Pt went to an eye doctor about 4 years ago. ) Physical Exam ED Vital Signs: Vital Signs - 24 hr 03/19/23 12:34 03/19/23 15:39 03/19/23 18:19 Temperature 97.7 F 98.4 F Pulse Rate 59 53 60 Respiratory Rate 18 16 16 Blood Pressure 170/69 H 139/52 L 156/69 H Pulse Oximetry 95 98 97 Oxygen Delivery Method Room Air Room Air Room Air BMI result Body Mass Index 22.7 Const General: healthy appearing, comfortable, no acute distress, alert and awake Nutritional Appearance: well nourished Orientation/consciousness: patient oriented x3 HENMT Head: Yes normocephalic and Yes atraumatic Eyes Eyelids: Yes eyelids normal Conjunctivae: conjunctivae normal Sclerae: sclerae normal Corneas: corneas normal Pupils: Equal, round and reactive pupils present EOM: EOMs intact bilaterally Neck Neck: Yes full ROM Resp Effort & Inspection: normal respiratory effort, able to speak in complete sentences, no audible wheezes and not labored Auscultation: clear to auscultation bilaterally GI Inspection: No distended Palpation (GI): Soft to palpation, not firm, nontender, no guarding and not rigid Auscultation: normoactive bowel sounds Skin General skin exam: no rashes or lesions noted and elasticity normal Neuro General: patient oriented x3 Cranial nerves: Yes Equal, round and reactive pupils present and Yes Bilaterally intact EOM present Cognition (Neuro): normal cognition Extrem Other: Moving all extremities well without any obvious deformities Course Course Course Narrative: RME performed by Kati Dhaliwal PA-C. Patient is a 67 year old assigned male at presenting to the emergency department with inability to eat. Has a h istory of cancer and has not had an appetite. Labs ordered. Patient placed back in the waiting room pending room availability and results. Reevaluation(s) Reevaluation #1: CT scan shows dilated bowel loops consistent gastroenteritis, less likely be obstruction. The patient does not have any obvious is passing gas and having bowel movements. Clinically he is not obstructed either. Patient encouraged to have liquid diet for the next 2 days and advance as tolerated. He was instructed return for new or worsening symptoms Time: 22:01 Medications Administered Discontinued Medications Generic Name Dose Route Start Last Admin Trade Name Armandq PRN Reason Stop Dose Admin Iohexol 85 ml 03/19/23 21:17 03/19/23 21:18 Iohexol 350 Mg/Ml 100 Ml Infus..Btl IV 03/19/23 21:18 85 ml ONCE ONE Administration Medical Decision Making Medical Decision Making MDM Narrative: 67-year-old male presents for evaluation of decreased appetite and weight loss. Denies any abdominal pain, nausea, vomiting or diarrhea. He had a normal bowel movement yesterday but described as small likely as the patient has had decreased p.o. intake. Pelvis to evaluate for involving mass/partial obstruction. I feel this is less likely. The patient had an endoscopy within the last month. Differential Diagnosis Differential Diagnoses: The differential diagnosis associated with the presentation includes Decreased appetite esophagitis Abdominal pain NauseaVomiting Bowel Obstruction Lab Data MDM Lab Attestation statement: I reviewed the patient's lab results. Patient has no leukocytosis, and mild anemia with a hemoglobin of 13.6 and hematocrit 41.1. Ten renal function within normal limits. Liver enzymes within normal limits 03/19/23 15:38 03/19/23 15:38 Labs: Lab Results 03/19/23 03/19/23 03/19/23 Range/Units 15:38 15:38 18:34 WBC 9.2 (4.8-10.8) X10*3/uL RBC 4.48 L (4.60-5.80) X10*6/uL Hgb 13.6 L (14.0-18.0) g/dl Hct 41.1 L (42.0-52.0) % MCV 91.7 (80.0-98.0) fL MCH 30.4 (27.0-33.0) pg MCHC 33.1 (31.0-36.0) g/dl RDW 13.7 (11.0-16.0) % Plt Count 217 (160-400) X10*3/uL MPV 9.8 (9.4-12.4) fL Immature Gran % (Auto) 0.2 (0.0-0.4) % Neut % (Auto) 74.3 H (45-73) % Lymph % (Auto) 16.9 L (20-40) % [place] % (Auto) 8.0 (2-11) % Eos % (Auto) 0.4 (0-4) % Baso % (Auto) 0.2 (0-2) % Lymph # (Auto) 1.6 (1.2-4.9) X10*3/uL [place] # (Auto) 0.7 (0.1-1.2) X10*3/uL Eos # (Auto) 0.0 (0.0-0.4) X10*3/uL Baso # (Auto) 0.0 (0.0-0.2) X10*3/uL Abs Immat Gran (auto) 0.02 (0.00-0.03) X10*3/uL Absolute Neuts (auto) 6.9 (2.0-8.3) x10*3/uL Absolute Nucleated RBC 0.000 (0.0-0.012) X10*3/uL Nucleated RBC % (auto) 0.0 (0.0-0.2) /100WBC Sodium 140 (135-145) mmol/L Potassium 3.8 (3.3-5.1) mmol/L Chloride 106 (96-108) mmol/L Carbon Dioxide 25 (22-29) mmol/L Anion Gap 13 (12-20) BUN 12 (9-16) mg/dL Creatinine 0.74 (0.5-1.4) mg/dL Estim Creat Clear Calc 112.8 Estimated GFR > 60 Random Glucose 98 (60-115) mg/dL Calcium 9.8 D (8.4-10.2) mg/dL Magnesium 1.9 (1.6-2.6) mg/dL Total Bilirubin 0.6 (0.0-1.0) mg/dL AST 19 (5-37) U/L ALT 18 (0-40) U/L Alkaline Phosphatase 113 (39-117) U/L Total Protein 7.8 (6.5-8.0) g/dL Albumin 4.5 (3.5-5.0) g/dL Urine Color Dark Yellow Urine Appearance Clear Urine pH 5.5 (5.0-9.0) Ur Specific [place] 1.025 (1.005-1.025) Urine Protein 30 (1+) H (Neg-Trace) mg/dL Urine Glucose (UA) Negative (Negative) mg/dL Urine Ketones 80 (Negative) mg/dL Urine Blood Trace H (Negative) Urine Nitrite Negative (Negative) Ur Leukocyte Esterase Negative (Negative) Urine RBC 3-5 H (0-2) /HPF Urine WBC 0-5 (0-5) /HPF Ur Squamous Epith Cells 0-2 (0-2) /HPF Urine Bacteria None Seen (None Seen) Hyaline Casts 0-2 (0-2) /LPF Radiology Impression Discussion of test interpretation with radiology: I have reviewed the radiologist's reading. Radiologist Impression: Dilated bowel loops without transition point Discharge Plan Discharge Clinical Impression: Gastroenteritis Patient Disposition: Home, Self-Care Instructions: Gastroenteritis (ED) Additional Instructions: Your CT scan showed a likely gastroenteritis which is a stomach virus. You should consume a liquid diet for the next 2 days in advance as tolerated Return for new or worsening symptoms especially if you are unable to tolerate anything orally or cannot have a bowel movement Prescriptions: No Action amlodipine 2.5 mg tablet 5 mg PO DAILY 90 Days Qty: 180 3RF lidocaine [Lidoderm] 5 % adhesive patch,medicated 1 patch topical DAILY 30 Days Qty: 30 0RF Rx Instructions: leave on most painful area for up to 12 hrs oxycodone-acetaminophen 5-325 mg tablet 1 tab PO BID 30 Days Qty: 60 0RF cyclobenzaprine 10 mg tablet 10 mg PO BEDTIME PRN (Reason: muscle spasm) 30 Days Qty: 30 6RF lorazepam 0.5 mg tablet 0.5 mg PO BEDTIME 4 Days Qty: 4 0RF escitalopram oxalate [Lexapro] 5 mg tablet 5 mg PO DAILY 30 Days Qty: 30 0RF omeprazole 40 mg Capsule,Delayed Release(Dr/Ec) 40 mg PO DAILY@0630 Qty: 30 0RF hydrocortisone acetate [Anusol-HC] 25 mg suppository 25 mg ND BID PRN (Reason: hemorrhoids) Qty: 24 0RF metoprolol succinate [Toprol XL] 25 mg tablet extended release 24 hr 25 mg PO DAILY Qty: 60 3RF
[2023-03-19 12:34] VITALS: BP 170/69; PULSE 59; RESP 18; TEMP 36.5; O2SAT 95; BMI 22.7
[2023-03-19 15:39] VITALS: BP 139/52; PULSE 53; RESP 16; TEMP 36.9; O2SAT 98
--- NOTE | 2023-03-19 15:39 | MHC.EDTECH ---
PATIENT BLOOD DRAWN AND SENT TO LAB ,VITALS SIGN RE CHECK .
[2023-03-19 15:45] LABS: MANUAL DIFF FLAG NO
[2023-03-19 15:54] LABS: Basophils Percent Auto 0.2 % (0-2); Eosinophils Percent Auto 0.4 % (0-4); Hematocrit 41.1 % (42.0-52.0); Hemoglobin 13.6 g/dl (14.0-18.0); Imm Gran Abs Auto 0.02 X10*3/uL (0.00-0.03); Imm Gran Pct Auto 0.2 % (0.0-0.4); Lymphocytes Absolute Auto 1.6 X10*3/uL (1.2-4.9); Lymphocytes Percent Auto 16.9 % (20-40); Mean Corpuscular HGB Conc 33.1 g/dl (31.0-36.0); Mean Corpuscular Hemoglobin 30.4 pg (27.0-33.0); Mean Corpuscular Volume 91.7 fL (80.0-98.0); Mean Platelet Volume 9.8 fL (9.4-12.4); Monocytes Absolute Auto 0.7 X10*3/uL (0.1-1.2); Neutrophils Absolute Auto 6.9 x10*3/uL (2.0-8.3); Neutrophils Percent Auto 74.3 % (45-73); Platelet Count 217 X10*3/uL (160-400); Red Blood Count 4.48 X10*6/uL (4.60-5.80); Red Cell Distribution Width 13.7 % (11.0-16.0); White Blood Count 9.2 X10*3/uL (4.8-10.8)
[2023-03-19 16:09] LABS: Alanine Aminotransferase 18 U/L (0-40); Albumin Level 4.5 g/dL (3.5-5.0); Alkaline Phosphatase 113 U/L (39-117); Anion Gap 13 (12-20); Aspartate Amino Transferase 19 U/L (5-37); Bilirubin Total 0.6 mg/dL (0.0-1.0); Blood Urea Nitrogen 12 mg/dL (9-16); Calcium 9.8 mg/dL (8.4-10.2); Carbon Dioxide 25 mmol/L (22-29); Chloride 106 mmol/L (96-108); Creatinine Clr Calc Pharmacy 112.8; Estimated Glomerular Filt Rate > 60; Glucose Random 98 mg/dL (60-115); Magnesium 1.9 mg/dL (1.6-2.6); Potassium 3.8 mmol/L (3.3-5.1); Sodium 140 mmol/L (135-145); Total Protein 7.8 g/dL (6.5-8.0)
[2023-03-19 18:19] VITALS: BP 156/69; PULSE 60; RESP 16; O2SAT 97
[2023-03-19 18:45] LABS: Appearance Urine Clear; Color Urine Dark Yellow; Glucose Urine UA Negative (Negative); Leukocyte Esterase Urine Negative (Negative); Nitrite Urine Negative (Negative); PH 5.5 (5.0-9.0); Specific Gravity - Urine 1.025 (1.005-1.025); UMIC TRIGGER UACC YES; Urine Blood Trace (Negative); Urine Ketones 80 mg/dL (Negative); Urine Protein 30 (1+) mg/dL (Neg-Trace)
[2023-03-19 18:47] LABS: Bacteria Urine None Seen (None Seen); Hyaline Casts Urine 0-2 /LPF (0-2); Squamous Epithelial Cell Urine 0-2 /HPF (0-2); WBC Urine 0-5 /HPF (0-5)
--- NOTE | 2023-03-19 20:02 | PC.NURSE ---
This technical writer and editor assumed care of this Pt at 1900. Pt A&Ox4, reports 5/10 constant umbilical ABD pain radiating to right side rib, states it feels like pressure, last BM was yesterday small and formed , states appetite is decrease with weight loss. Denies any N/V/D, denies burning or pain with urination. Pt ABD tender to touch, hypoactive bowel sounds. Pt awaiting CT scan and aware of plan.
[2023-03-19] MEDS: iohexoL 350 MG/ML 100 ML INFUS..BTL 85 ML IV (21:18)
[2023-03-19 22:04] VITALS: BP 154/85; PULSE 88; RESP 16; O2SAT 99
== END 2023-03-19 22:14 | disposition home or self-care (01) ==
PROVIDERS: Physician Assistant; Physician Assistant Medical; Emergency Provider Emergency Medicine; PCP Physician Assistant
DX: K52.9 Noninfective gastroenteritis and colitis, unspecified (principal); R63.0 Anorexia; R63.4 Abnormal weight loss; Z68.22 Body mass index [BMI] 22.0-22.9, adult; C61 Malignant neoplasm of prostate; C79.51 Secondary malignant neoplasm of bone; Z79.899 Other long term (current) drug therapy
CPT/HCPCS: 36415; 74177; 80053; 81001; 83735; 85025; 99284; Q9967

== ENCOUNTER 2023-03-24 09:13 | Emergency (ER) | payer MEDICARE, MEDICAID, SELFPAY ==
--- NOTE | ~2023-03-24 | XR_ITS ---
EXAMINATION: XR RIBS, RIGHT, PA CHEST CLINICAL INFORMATION: Right-sided rib pain, history of prostate cancer. COMPARISON: None available. TECHNIQUE: 3 views of the right ribs were obtained along with a PA view of the chest. A BB was placed overlying the inferior right ribs. FINDINGS: Lungs are clear. No consolidation, pneumothorax, or pleural effusion. The cardiomediastinal silhouette and pulmonary vasculature are normal. Osseous structures are unremarkable. Ribs are intact. No fractures are identified. XR/XR ribs RT min 3V w CXR1V IMPRESSION: Unremarkable examination. No overt acute abnormality. No evidence for osseous metastatic disease.
--- NOTE | ~2023-03-24 | US_ITS ---
EXAMINATION: US SCROTUM CLINICAL INFORMATION: Bilateral testicular pain for 3 days. COMPARISON: None available. TECHNIQUE: A sonogram of the scrotum was performed assessing david-scale appearance and color Doppler flow. Spectral Doppler analysis of the arterial and venous flow were performed in the testes bilaterally. FINDINGS: RIGHT: Right testicle measures 4.3 x 2.1 x 2.7 cm, volume 13 mL. No focal testicular parenchymal lesions are visualized. Spectral Doppler analysis of the arterial and venous flow is normal in the right testis. Right epididymal head is normal in size. Small anechoic cysts measuring 0.5 cm. Trace right hydrocele. No right varicocele. Right epididymal Doppler flow is normal. LEFT: Left testicle measures 3.0 x 1.9 x 2.9 cm, volume 9 mL. No focal testicular parenchymal lesions are visualized. Spectral Doppler analysis of the arterial and venous flow is normal in the left testis. Left epididymal head is homogeneous with mild increased vascularity. A tiny cyst measures .2 cm. Small left hydrocele. Small left varicocele with vessels measuring up to 0.35 cm. US/US scrotum IMPRESSION: 1. No significant intratesticular abnormality bilaterally. 2. Trace right and small left hydroceles. 3. Small left varicocele. 4. Mild left epididymitis cannot be excluded. The left hydrocele could be reactive to this process.
--- NOTE | ~2023-03-24 | CT_ITS ---
EXAMINATION: CT CHEST WITHOUT CONTRAST CLINICAL INFORMATION: Right chest pain history of metastatic prostate COMPARISON: CT angiography chest from 02/01/2023 TECHNIQUE: Multidetector volumetric CT imaging of the chest was done. Axial MIP volume rendering provided. Sagittal and coronal reformatted images were obtained. This CT examination was performed using dose optimization techniques as appropriate, variously including the following: *Automated exposure control *Adjustment of mA and/or kV according to patient size (this includes techniques or standardized protocols for targeted exams where dose is matched to indication/reason for exam; i.e. extremities or head) *Use of iterative reconstruction technique DLP: 342 mGy-cm FINDINGS: LUNGS/PLEURA: Emphysematous changes. Biapical pleural parenchymal scarring. Larger suspicious pulmonary nodules or masses are noted. Central airways are patent. No pneumothorax. No large pleural effusion. Right basilar atelectasis. Slight pleural thickening along the posterior medial aspect of the right lower lobe (series 5, image 306) overlying the right medial posterior eighth rib which in this demonstrates destructive lesion which also extends to the right transverse process of T8 slightly increased compared to prior imaging. MEDIASTINUM: Heart is not enlarged. No pericardial effusion. No coronary calcifications. Aorta is nonaneurysmal and demonstrates atherosclerotic calcifications. Pulmonary artery is not enlarged. No enlarged lymph nodes per size criteria. Visualized portions of the thyroid are unremarkable AXILLA: No lymphadenopathy. 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 Fatty infiltration of the pancreas OSSEOUS STRUCTURES: Redemonstration of destructive lesion involving the posterior medial aspect of the right seventh rib with extension into the right C7 transverse process. Osteopenia. 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 Slight pleural thickening along the posterior medial aspect of the right lower lobe overlying the right medial posterior eighth rib, redemonstrating a destructive osseous lesion which also extends to the right transverse process of T8 slightly increased compared to prior imaging. 2. 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 3. Osteopenia.
[2023-03-24 09:16] VITALS: BP 157/80; PULSE 69; RESP 17; TEMP 36.9; O2SAT 98; BMI 22.3
--- NOTE | 2023-03-24 09:40 | PC.NURSE ---
went to ER the other day for same issue and they gave him a medication but doesn't remember the name. history of prostate CA. pain also noted on right side of rib area
[2023-03-24 10:23] LABS: MANUAL DIFF FLAG NO
[2023-03-24 10:27] LABS: Basophils Percent Auto 0.2 % (0-2); Eosinophils Percent Auto 0.1 % (0-4); Hematocrit 40.6 % (42.0-52.0); Hemoglobin 13.6 g/dl (14.0-18.0); Imm Gran Abs Auto 0.03 X10*3/uL (0.00-0.03); Imm Gran Pct Auto 0.3 % (0.0-0.4); Lymphocytes Absolute Auto 1.1 X10*3/uL (1.2-4.9); Lymphocytes Percent Auto 11.5 % (20-40); Mean Corpuscular HGB Conc 33.5 g/dl (31.0-36.0); Mean Corpuscular Hemoglobin 30.1 pg (27.0-33.0); Mean Corpuscular Volume 89.8 fL (80.0-98.0); Mean Platelet Volume 9.6 fL (9.4-12.4); Monocytes Absolute Auto 0.8 X10*3/uL (0.1-1.2); Monocytes Percent Auto 7.6 % (2-11); Neutrophils Absolute Auto 7.9 x10*3/uL (2.0-8.3); Neutrophils Percent Auto 80.3 % (45-73); Platelet Count 191 X10*3/uL (160-400); Red Blood Count 4.52 X10*6/uL (4.60-5.80); Red Cell Distribution Width 13.5 % (11.0-16.0); White Blood Count 9.8 X10*3/uL (4.8-10.8)
[2023-03-24] MEDS: Famotidine/PF 20 MG/2 ML VIAL IVPUSH (10:28)
[2023-03-24] MEDS: ondansetron HCL 4 MG/2 ML VIAL IVPUSH (10:28)
[2023-03-24] MEDS: Ketorolac Tromethamine 15 MG/ML VIAL IVPUSH (10:28)
[2023-03-24] MEDS: 0.9 % Sodium Chloride 1,000 ML 999 ML IV ×2 (10:29→12:08)
[2023-03-24 10:51] LABS: Alanine Aminotransferase 17 U/L (0-40); Albumin Level 4.3 g/dL (3.5-5.0); Alkaline Phosphatase 123 U/L (39-117); Anion Gap 14 (12-20); Aspartate Amino Transferase 18 U/L (5-37); Bilirubin Total 0.9 mg/dL (0.0-1.0); Blood Urea Nitrogen 10 mg/dL (9-16); Calcium 9.4 mg/dL (8.4-10.2); Carbon Dioxide 27 mmol/L (22-29); Chloride 103 mmol/L (96-108); Creatinine Clr Calc Pharmacy 110.9; Estimated Glomerular Filt Rate > 60; Glucose Random 126 mg/dL (60-115); Lipase 15 U/L (8-78); Potassium 3.6 mmol/L (3.3-5.1); Sodium 140 mmol/L (135-145); Total Protein 7.7 g/dL (6.5-8.0)
[2023-03-24 10:52] LABS: Appearance Urine Clear; Color Urine Yellow; Glucose Urine UA Negative (Negative); Leukocyte Esterase Urine Negative (Negative); Nitrite Urine Negative (Negative); PH 5.5 (5.0-9.0); UMIC TRIGGER UACC YES; Urine Blood Trace (Negative); Urine Ketones 15 mg/dL (Negative); Urine Protein Negative (Neg-Trace)
[2023-03-24 10:57] LABS: Bacteria Urine None Seen (None Seen); Hyaline Casts Urine 0-2 /LPF (0-2); RBC Urine 0-2 /HPF (0-2); Squamous Epithelial Cell Urine 0-2 /HPF (0-2); WBC Urine 0-5 /HPF (0-5)
[2023-03-24 11:05] LABS: TSH reflex Free T4 0.86 uIU/mL (0.32-4.0)
[2023-03-24 11:21] VITALS: BP 148/61; PULSE 59; RESP 15; TEMP 36.7; O2SAT 97
--- NOTE | 2023-03-24 12:10 | ED_ITS ---
HPI - General Adult General Chief complaint: Abdominal Pain Stated complaint: weakness/ nausea Time Seen by Provider: 03/24/23 09:24 Source: patient Mode of arrival: ambulatory Limitations: no limitations History of Present Illness HPI narrative: 67-year-old male presents with complaints of weight loss, lack of appetite, nausea with dry heaves, right-sided chest pain. Patient has a history of prostate cancer with metastases to the right rib. He has had radiation therapy. He is reportedly in remission with good PSAs according to his oncologist. Patient reports a recent history of 2-3 weeks of intractable nausea, dry heaves, lack of appetite, early satiety. He describes the symptoms as severe. There is no clear relieving or exacerbating features. He has lost approximately 20 lb in last 4-6 weeks. Had no recent fevers, chills. He does report the right-sided pain which is sharp and severe. Does not radiate. There is no clear relieving or exacerbating features. And finally, patient is complaining of bilateral testicular pain. There is no significant urinary frequency, urgency or dysuria. He denies any hematuria. Denies any trauma. Related Data Previous Rx's Medication Instructions Recorded amlodipine 2.5 mg tablet 5 mg PO DAILY 90 days #180 tabs 12/21/22 omeprazole 40 mg capsule,delayed 40 mg PO DAILY@0630 #30 caps 02/02/23 release lidocaine 5 % topical patch 1 patch topical DAILY 30 days #30 02/09/23 (Lidoderm) ea hydrocortisone acetate 25 mg 25 mg NJ BID PRN hemorrhoids #24 ea 02/24/23 rectal suppository (Anusol-HC) metoprolol succinate 25 mg 25 mg PO DAILY #60 tabs 03/03/23 tablet,extended release 24 hr (Toprol XL) cyclobenzaprine 10 mg tablet 10 mg PO BEDTIME PRN muscle spasm 03/06/23 30 days #30 tabs oxycodone-acetaminophen 5 mg-325 1 tab PO BID 30 days #60 tabs 03/06/23 mg tablet escitalopram oxalate 5 mg tablet 5 mg PO DAILY 30 days #30 tabs 03/16/23 (Lexapro) lorazepam 0.5 mg tablet 0.5 mg PO BEDTIME anxiety 4 days 03/16/23 #4 tabs Allergies Allergy/AdvReac Type Severity Reaction Status Date / Time Klvlezl-[id number]-BgT Reductase AdvReac Intermediate Joint and Verified 03/24/23 09:16 Inhibitor muscle pain Review of Systems Review of Systems: CONSTITUTIONAL: + weight loss, - fever and chills. HEENT: Denies changes in vision and hearing. RESPIRATORY: Denies SOB and cough. CV: Denies palpitations + CP. GI: Denies abdominal pain, + nausea, vomiting - diarrhea. : Denies dysuria and urinary frequency. MSK: Denies myalgia and joint pain. SKIN: Denies rash and pruritus. NEUROLOGICAL: Denies headache and syncope. PSYCHIATRIC: Denies recent changes in mood. Denies anxiety and depression. All other ROS are negative unless in HPI PMFSH Past Medical History Medical History Achilles tendon pain Acute upper gastrointestinal bleeding Annual physical exam Anxiety Asthma Borderline high cholesterol BRBPR (bright red blood per rectum) Cough HTN (hypertension) Hypogonadism in male MDD (major depressive disorder), recurrent episode Other forms of dyspnea Pathologic rib fracture Prostate cancer Prostate cancer metastatic to bone Right shoulder pain Surgical History H/O endoscopy H/O prostatectomy Family History Family History Father Pneumonia Substance abuse Mother CAD (coronary artery disease) CHF (congestive heart failure) Brother Stomach cancer Substance abuse Sister Breast cancer Substance abuse Social History Social History Household Members: Friend(s) Housing: House Do you presently have visiting nurse or other home services: No Alcohol intake: never Patient Tobacco Use Status: Never used Tobacco Years Smoked: 40 yrs Smoked in Last 30 Days: No e-Cigarette/Vaping Use: Never Used Second Hand Smoke Exposure: No Use of substances other than those prescribed or required for medical reasons: No Substance Use Type: Marijuana Advance Directives: No service: No Current occupational status: unemployed Current occupation: [employer] Cognitive needs: No Hearing needs: No Vision needs: No (Pt went to an eye doctor about 4 years ago. ) Physical Exam ED Vital Signs: Vital Signs - 24 hr 03/24/23 09:16 03/24/23 11:21 Temperature 98.4 F 98.0 F Pulse Rate 69 59 Respiratory Rate 17 15 Blood Pressure 157/80 H 148/61 H Pulse Oximetry 98 97 Oxygen Delivery Method Room Air Room Air BMI result Body Mass Index 22.3 GEN: Well developed, no acute distress, alert, oriented HEENT: Normocephalic, atraumatic, normal external ears, nose appears normal, no oropharyngeal edema or exudates Eyes: Normal to appearance Neck: Supple, no lymphadenopathy Respiratory: Talks in complete sentences, no respiratory distress, clear to auscultation bilaterally Cardiovascular: Regular rate and rhythm, no murmurs rubs or gallops Abdomen: Soft, nontender, nondistended, no guarding, no rebound Back: No CVA tenderness Extremities: No clubbing cyanosis or edema Neurologic: No focal neurologic deficits, cranial nerves 2-12 intact, strength is 5/5 bilaterally Skin: No rash : Normal scrotal contents, no testicular enlargement, tenderness. No penile discharge. Course Reevaluation(s) Reevaluation #1: the metabolic workup is complete. There are no significant abnormalities that I found on his laboratory analysis. X-ray of the ribs and chest do not reveal any acute abnormalities. Ultrasound of the scrotum did not reveal any orchitis or epididymitis. When I a re-evaluate the patient, he is very tearful, anxious sad and depressed. He wants to stay. He is not suicidal homicidal. He is worried about continued weight loss and metastatic cancer. At this point I think a Behavioral Health consultation would be an appropriate step. He is open to hospitalization. I have placed in addition to his lab work and alcohol level and a urine toxicology screen. I will place the patient in physician observation at this time pending care team evaluation. Time: 13:56 Medications Administered Discontinued Medications Generic Name Dose Route Start Last Admin Trade Name Freq PRN Reason Stop Dose Admin Famotidine 20 mg 03/24/23 09:50 03/24/23 10:28 Famotidine/Pf 20 Mg/2 Ml Vial IVPUSH 03/24/23 09:51 20 mg ONCE ONE Administration Sodium Chloride 1,000 mls @ 999 mls/hr 03/24/23 10:00 03/24/23 12:08 Ns IV 03/24/23 12:00 999 mls/hr .Q1H1M HAYDEE Administration Ketorolac Tromethamine 15 mg 03/24/23 09:50 03/24/23 10:28 Ketorolac Tromethamine 15 Mg/Ml Vial IVPUSH 03/24/23 09:51 15 mg ONCE ONE Administration Lorazepam 0.5 mg 03/24/23 13:34 03/24/23 14:43 Lorazepam 0.5 Mg Tablet PO 03/24/23 13:35 0.5 mg ONCE ONE Administration Ondansetron HCl 4 mg 03/24/23 09:50 03/24/23 10:28 Ondansetron Hcl 4 Mg/2 Ml Vial IVPUSH 03/24/23 09:51 4 mg ONCE ONE Administration Medical Decision Making Medical Decision Making [facility] Narrative: 67-year-old male presents with multiple complaints including nausea, vomiting, weight loss, testicular pain, right-sided rib pain. Exam was benign. Will get a chest x-ray with rib stool evaluate for possible metastatic disease given his history of prostate cancer. Will check for significant electrolyte abnormalities especially given his intractable nausea vomiting. His abdomen is benign. There is no evidence of obstruction on examination the knee does report having normal bowel movements. No immediate indication for abdominal imaging. Patient also complains of scrotal pain and discomfort. Differential diagnosis could include orchitis, UTI, epididymitis. Will obtain an ultrasound of the scrotum. Disposition pending workup. The possibility for severe dehydration, electrolyte abnormalities or renal dysfunction secondary to intractable nausea vomiting may warrant hospitalization -I received sign-out from Dr. Moy -patient has generalized anxiety, patient will be given a dose of benzodiazepine/lorazepam. Also patient will be provided with a small pre scription for anxiety. -patient will be p.o. challenged, if tolerates well p.o., he will be discharged. -the care team has arranged for him outpatient therapy, patient agrees with plan. -interpretation of labs: patient's hematology and chemistries at baseline, no UTI Differential Diagnosis Differential Diagnoses: The differential diagnosis associated with the presentation includes (See above) Admission/Observation Consideration of admission/observation: Escalation of care including ad mission/observation considered Consult Healthcare Provider Management of the patient was discussed with: Tabulating Machine Mechanic (Oncology) Lab Data [facility] Lab Attestation statement: I reviewed the patient's lab results. 03/24/23 10:20 03/24/23 10:20 Labs: Lab Results 03/24/23 03/24/23 03/24/23 Range/Units 10:17 10:20 10:20 WBC 9.8 (4.8-10.8) X10*3/uL RBC 4.52 L (4.60-5.80) X10*6/uL Hgb 13.6 L (14.0-18.0) g/dl Hct 40.6 L (42.0-52.0) % MCV 89.8 (80.0-98.0) fL MCH 30.1 (27.0-33.0) pg MCHC 33.5 (31.0-36.0) g/dl RDW 13.5 (11.0-16.0) % Plt Count 191 (160-400) X10*3/uL MPV 9.6 (9.4-12.4) fL Immature Gran % (Auto) 0.3 (0.0-0.4) % Neut % (Auto) 80.3 H (45-73) % Lymph % (Auto) 11.5 L (20-40) % Charles % (Auto) 7.6 (2-11) % Eos % (Auto) 0.1 (0-4) % Baso % (Auto) 0.2 (0-2) % Lymph # (Auto) 1.1 L (1.2-4.9) X10*3/uL Charles # (Auto) 0.8 (0.1-1.2) X10*3/uL Eos # (Auto) 0.0 (0.0-0.4) X10*3/uL Baso # (Auto) 0.0 (0.0-0.2) X10*3/uL Abs Immat Gran (auto) 0.03 (0.00-0.03) X10*3/uL Absolute Neuts (auto) 7.9 (2.0-8.3) x10*3/uL Absolute Nucleated RBC 0.000 (0.0-0.012) X10*3/uL Nucleated RBC % (auto) 0.0 (0.0-0.2) /100WBC Sodium 140 (135-145) mmol/L Potassium 3.6 (3.3-5.1) mmol/L Chloride 103 (96-108) mmol/L Carbon Dioxide 27 (22-29) mmol/L Anion Gap 14 (12-20) BUN 10 (9-16) mg/dL Creatinine 0.74 (0.5-1.4) mg/dL Estim Creat Clear Calc 110.9 Estimated GFR > 60 Random Glucose 126 H (60-115) mg/dL Calcium 9.4 (8.4-10.2) mg/dL Total Bilirubin 0.9 (0.0-1.0) mg/dL AST 18 (5-37) U/L ALT 17 (0-40) U/L Alkaline Phosphatase 123 H (39-117) U/L Total Protein 7.7 (6.5-8.0) g/dL Albumin 4.3 (3.5-5.0) g/dL Lipase 15 (8-78) U/L TSH 0.86 (0.32-4.0) uIU/mL Urine Color Yellow Urine Appearance Clear Urine pH 5.5 (5.0-9.0) Ur Specific [place] 1.010 (1.005-1.025) Urine Protein Negative (Neg-Trace) mg/dL Urine Glucose (UA) Negative (Negative) mg/dL Urine Ketones 15 (Negative) mg/dL Urine Blood Trace H (Negative) Urine Nitrite Negative (Negative) Ur Leukocyte Esterase Negative (Negative) Urine RBC 0-2 (0-2) /HPF Urine WBC 0-5 (0-5) /HPF Ur Squamous Epith Cells 0-2 (0-2) /HPF Urine Bacteria None Seen (None Seen) Hyaline Casts 0-2 (0-2) /LPF Urine Opiates Screen (Not Detect) Urine Fentanyl Screen (Not Detect) Ur Barbiturates Screen (Not Detect) Ur Phencyclidine Scrn (Not Detect) Ur Amphetamines Screen (Not Detect) U Benzodiazepines Scrn (Not Detect) Urine Cocaine Screen (Not Detect) U Marijuana (THC) Screen (Not Detect) Ethyl Alcohol < 10 mg/dL 03/24/23 Range/Units 10:20 WBC (4.8-10.8) X10*3/uL RBC (4.60-5.80) X10*6/uL Hgb (14.0-18.0) g/dl Hct (42.0-52.0) % MCV (80.0-98.0) fL MCH (27.0-33.0) pg MCHC (31.0-36.0) g/dl RDW (11.0-16.0) % Plt Count (160-400) X10*3/uL MPV (9.4-12.4) fL Immature Gran % (Auto) (0.0-0.4) % Neut % (Auto) (45-73) % Lymph % (Auto) (20-40) % Charles % (Auto) (2-11) % Eos % (Auto) (0-4) % Baso % (Auto) (0-2) % Lymph # (Auto) (1.2-4.9) X10*3/uL Charles # (Auto) (0.1-1.2) X10*3/uL Eos # (Auto) (0.0-0.4) X10*3/uL Baso # (Auto) (0.0-0.2) X10*3/uL Abs Immat Gran (auto) (0.00-0.03) X10*3/uL Absolute Neuts (auto) (2.0-8.3) x10*3/uL Absolute Nucleated RBC (0.0-0.012) X10*3/uL Nucleated RBC % (auto) (0.0-0.2) /100WBC Sodium (135-145) mmol/L Potassium (3.3-5.1) mmol/L Chloride (96-108) mmol/L Carbon Dioxide (22-29) mmol/L Anion Gap (12-20) BUN (9-16) mg/dL Creatinine (0.5-1.4) mg/dL Estim Creat Clear Calc Estimated GFR Random Glucose (60-115) mg/dL Calcium (8.4-10.2) mg/dL Total Bilirubin (0.0-1.0) mg/dL AST (5-37) U/L ALT (0-40) U/L Alkaline Phosphatase (39-117) U/L Total Protein (6.5-8.0) g/dL Albumin (3.5-5.0) g/dL Lipase (8-78) U/L TSH (0.32-4.0) uIU/mL Urine Color Urine Appearance Urine pH (5.0-9.0) Ur Specific [place] (1.005-1.025) Urine Protein (Neg-Trace) mg/dL Urine Glucose (UA) (Negative) mg/dL Urine Ketones (Negative) mg/dL Urine Blood (Negative) Urine Nitrite (Negative) Ur Leukocyte Esterase (Negative) Urine RBC (0-2) /HPF Urine WBC (0-5) /HPF Ur Squamous Epith Cells (0-2) /HPF Urine Bacteria (None Seen) Hyaline Casts (0-2) /LPF Urine Opiates Screen Not Detected (Not Detect) Urine Fentanyl Screen Not Detected (Not Detect) Ur Barbiturates Screen Not Detected (Not Detect) Ur Phencyclidine Scrn Not Detected (Not Detect) Ur Amphetamines Screen Not Detected (Not Detect) U Benzodiazepines Scrn Not Detected (Not Detect) Urine Cocaine Screen Not Detected (Not Detect) U Marijuana (THC) Screen POSITIVE H (Not Detect) Ethyl Alcohol mg/dL Independent Interpretation I performed an independent interpretation of an: Plain X-Ray (Ribs right: No acute pathology) and Ultrasound (Scrotum: No acute abnormalities) Radiology Impression Discussion of test interpretation with radiology: I have reviewed the radiologist's reading. Radiologist Impression: 1. No significant intratesticular abnormality bilaterally. 2. Trace right and small left hydroceles. 3. Small left varicocele. 4. Mild left epididymitis cannot be excluded. The left hydrocele could be reactive to this process. ? Dictated By: Kenrick Tinoco MD Signed By: <Electronically signed by Kenrick Tinoco MD in [facility]> 03/24/[address]/CT chest wo IV con IMPRESSION: 1.? Slight pleural thickening along the posterior medial aspect of the right lower lobe overlying the right medial posterior eighth rib, redemonstrating a destructive osseous lesion which also extends to the right transverse process of T8 slightly increased compared to prior imaging. 2.? 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 3.? Osteopenia. Dictated By: Rohit Martin MD Signed By: <Electronically signed by Rohit Martin MD in [facility]> 03/24/23 1528 Independent Historian Clinical information obtained from an independent historian. History obtained from or confirmed by: Other (Patient's oncologist) Discharge Plan Discharge Clinical Impression: GABRIELE (generalized anxiety disorder), Pain in testicle, Chest wall pain, Abnormal weight loss Patient Disposition: Still a Patient Prescriptions: No Action amlodipine 2.5 mg tablet 5 mg PO DAILY 90 Days Qty: 180 3RF lidocaine [Lidoderm] 5 % adhesive patch,medicated 1 patch topical DAILY 30 Days Qty: 30 0RF Rx Instructions: leave on most painful area for up to 12 hrs oxycodone-acetaminophen 5-325 mg tablet 1 tab PO BID 30 Days Qty: 60 0RF cyclobenzaprine 10 mg tablet 10 mg PO BEDTIME PRN (Reason: muscle spasm) 30 Days Qty: 30 6RF lorazepam 0.5 mg tablet 0.5 mg PO BEDTIME 4 Days Qty: 4 0RF escitalopram oxalate [Lexapro] 5 mg tablet 5 mg PO DAILY 30 Days Qty: 30 0RF omeprazole 40 mg Capsule,Delayed Release(Dr/Ec) 40 mg PO DAILY@0630 Qty: 30 0RF hydrocortisone acetate [Anusol-HC] 25 mg suppository 25 mg NJ BID PRN (Reason: hemorrhoids) Qty: 24 0RF metoprolol succinate [Toprol XL] 25 mg tablet extended release 24 hr 25 mg PO DAILY Qty: 60 3RF
[2023-03-24 14:35] LABS: Ethanol < 10 mg/dL
[2023-03-24 14:37] LABS: Amphetamine Screen Urine Not Detected (Not Detect); Barbiturates, Urine Not Detected (Not Detect); Benzodiazepines Screen Urine Not Detected (Not Detect); Cannabinoid Screen Urine POSITIVE (Not Detect); Cocaine Screen Urine Not Detected (Not Detect); Fentanyl, urine Not Detected (Not Detect); Opiate Screen Urine Not Detected (Not Detect); Phencyclidine Screen Urine Not Detected (Not Detect)
[2023-03-24] MEDS: LORazepam 0.5 MG TABLET PO (14:43)
[2023-03-24] MEDS: LORazepam 1 MG TABLET 2 MG PO (18:38)
[2023-03-24 19:28] VITALS: BP 141/58; PULSE 60; RESP 12; TEMP 36.9; O2SAT 96
== END 2023-03-24 19:33 | disposition home or self-care (01) ==
PROVIDERS: Emergency Provider Emergency Medicine; PCP Physician Assistant
DX: F41.1 Generalized anxiety disorder (principal); N50.812 Left testicular pain; N50.811 Right testicular pain; R07.89 Other chest pain; R63.4 Abnormal weight loss; Z68.22 Body mass index [BMI] 22.0-22.9, adult; C61 Malignant neoplasm of prostate; C79.51 Secondary malignant neoplasm of bone; I10 Essential (primary) hypertension; Z92.3 Personal history of irradiation; Z79.899 Other long term (current) drug therapy
CPT/HCPCS: 36415; 71101; 71250; 76870; 80053; 80307; 81001; 83690; 84443; 85025; 96361; 96374; 96375; 99284; 99285; J1885; J2405

== ENCOUNTER 2023-03-29 08:29 | Outpatient (AMB) | payer MEDICARE, MEDICAID, SELFPAY ==
[2023-03-29 08:48] VITALS: BP 130/66; PULSE 52; O2SAT 97; BMI 21.9
--- NOTE | 2023-03-29 08:48 | MHC.PC.OV ---
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 Accompanied by: Self / Same As Patient Allergies [id number] Reductase Inhibitor Adverse Reaction (Intermediate, Verified 03/29/23 09:08) Joint and muscle pain Medication List - Last Reconciled 03/29/23 by Chirag River MD amlodipine 5 mg (2 x 2.5 mg) PO DAILY 90 days cholecalciferol (vitamin D3) 25 mcg PO DAILY cyclobenzaprine 10 mg PO BEDTIME PRN 30 days escitalopram oxalate (Lexapro) 5 mg PO DAILY 30 days hydrocortisone acetate (Anusol-HC) 25 mg NM BID PRN lidocaine 5% (Lidoderm) 1 patch topical DAILY 30 days lorazepam 0.5 mg PO BID PRN lorazepam 0.5 mg PO BEDTIME 4 days metoprolol succinate ER (Toprol XL) 25 mg PO DAILY omeprazole 40 mg PO DAILY@0630 oxycodone-acetaminophen 5-325 mg 1 tab PO BID 30 days Tobacco use date assessed: 03/29/23 Fall risk assessment: No Falls in past year Last assessed Fall Risk: 03/29/23 Dental Screening Dental Screen Date: 03/29/23 Did you have a dental visit in the last 12 months?: Yes Did you have a dental problem in the last 6 months where you did not have access to dental care?: No Was dental information given to patient?: Patient has dentist HPI ED [facility] [place] [facility] 03/24/23 anxiety, weight loss HPI Details Patient comes in today for his HDF follow up visit States that he has been to the ER a couple of times over the past 2 weeks (once to [facility] and to [facility] last week) for increased nausea and weakness States that his anxiety has been through the roof for the past several weeks and is now taking a toll on him States that his stomach feels bloated and full all the time for the past few months and he has been hardly able to eat anything and has lost a lot of weight as a result States that he continues to do a lot of walking as it at least helps clear up his mind a little bit (+) Hx of prostate cancer (S/P treatment) and was supposedly in remission for a couple of years until a few months ago when a lesion was noted on one of his ribs that was determined to be a metastatic lesion He underwent and completed radiation Tx for this and is scheduled to have a follow up CT done at [facility] sometime in the next couple of weeks Was started on Escitalopram 5 mg QD by his PCP about 2 weeks ago for his anxiety; states that he has not really noticed any significant improvement yet so far He denies any headaches or dizziness Denies any chest pains, no increased SOB and states that he has not had any symptoms of palpitations lately as he is on Metoprolol ER to help control his heart rate Relates (+) frequent nausea and bloated sensation; denies any vomiting lately No change in bowel habits noted Was prescribed some Carafate at the ER to take for 5 days but he has not taken it yet as he is not sure why he was given this Rx Also had some scrotal pain and discomfort recently and had testicular US done in the ER that came out normal [facility] Medical History Achilles tendon pain Acute upper gastrointestinal bleeding Annual physical exam Anxiety Asthma Borderline high cholesterol BRBPR (bright red blood per rectum) Cough HTN (hypertension) Hypogonadism in male MDD (major depressive disorder), recurrent episode Other forms of dyspnea Pathologic rib fracture Prostate cancer Prostate cancer metastatic to bone Right shoulder pain Surgical History H/O endoscopy H/O prostatectomy Family History Father Pneumonia Substance abuse Mother CAD (coronary artery disease) CHF (congestive heart failure) Brother Stomach cancer Substance abuse Sister Breast cancer Substance abuse Social History Household Members: Friend(s) Housing: House Do you presently have visiting nurse or other home services: No Alcohol intake: never Patient Tobacco Use Status: Never used Tobacco Years Smoked: 40 yrs e-Cigarette/Vaping Use: Never Used Second Hand Smoke Exposure: No Substance Use Type: Marijuana service: No Current occupational status: unemployed Current occupation: [employer] Cognitive needs: No Hearing needs: No Vision needs: No (Pt went to an eye doctor about 4 years ago. ) Questionnaire PHQ-9 Over the last 2 weeks, how often have you been bothered by any of the following problems? 1. Little interest or pleasure in doing things: nearly every day 2. Feeling down, depressed, or hopeless: nearly every day 3. Trouble falling or staying asleep, or sleeping too much: not at all 4. Feeling tired or having little energy: not at all 5. Poor appetite or overeating: not at all 6. Feeling bad about yourself - or that you are a failure or have let yourself or your family down: not at all 7. Trouble concentrating on things, such as reading the newspaper or watching television: not at all 8. Moving or speaking so slowly that other people could have noticed. Or the opposite - being so fidgety or restless that you have been moving around a lot more than usual: not at all 9. Thoughts that you would be better off or of hurting yourself in some way: several days Total score: 7 Depression Screening Interpretation: Positive Depression Screening Follow-up: Existing condition and In treatment 29092 - PHQ-9 Billing: Yes Source: Developed by Drs. Wilfred Obando, Darshana Vaz, Chip Maya and colleagues, with an educational damion from [employer] Thrive Questionnaire Date Thrive assessed: 03/29/23 I am a: Patient What is your living situation today?: I have a steady place to live Within the past 12 months, did the food you bought not last and you didn't have the money to get more?: Never true Within the past 12 months, did you worry whether your food would run out before you got money to buy more?: Never true Do you have trouble paying for medicines?: No Do you have trouble getting transportation to medical appointments?: No Do you have trouble paying your heating and electricity bill?: No Do you have trouble taking care of your child, family member or friend?: No Do you have trouble with day-to-day activities such as bathing, preparing meals, shopping, managing finances, etc.?: No Are you currently unemployed and looking for a job?: No Are you interested in more education?: No Please select the resources that you would like help with: None Currently or been in a relationship where the following occur: no concerns reported AUDIT C Alcohol Use Questionnaire (AUDIT-C) 1. How often do you have a drink containing alcohol?: Never 3. How often do you have six or more drinks on one occasion?: Never Total Score: 0 Score Reviewed/Action Taken: Yes GABRIELE-7 AMB Questionnaire GABRIELE-7 Date GABRIELE - 7 assessed: 03/29/23 Feeling nervous, anxious, or on edge: 3 = Nearly every day Not being able to stop or control worryin = Nearly every day Worrying too much about different things: 3 = Nearly every day Trouble relaxin = Nearly every day Being so restless that it is hard to sit still: 3 = Nearly every day Becoming easily annoyed or irritable: 3 = Nearly every day Feeling afraid as if something awful might happen: 3 = Nearly every day Total GABRIELE-7 score (0-4 normal; 5-9 mild; 10-14 moderate; 15-21 severe): 21 Source: Developed by Drs. Wilfred Obando, Darshana Vaz, Chip Maya and colleagues, with an educational damion from [employer] GABRIELE-7 Assessment Billing GABRIELE-7 Assessment Tool: GABRIELE-7 Assessment 96763 Review of Systems Const Denies chills, Reports fatigue, Denies fever(s), Denies headache(s), Reports poor appetite and Reports weight loss ENT Denies dysphagia, Denies dizziness, Denies otalgia, Denies headache(s), Denies odynophagia and Denies sore throat Card Denies chest pain, Denies palpitations and Denies dyspnea Resp Denies cough and Denies dyspnea GI Denies abdominal pain, Reports bloating, Denies constipation, Denies dysphagia, Reports early satiety, Denies heartburn, Denies diarrhea, Reports nausea (on and off), Denies odynophagia and Denies vomiting Denies difficulty urinating, Denies dysuria, Denies nocturia and Denies urinary frequency Neuro Denies dizziness and Denies headache(s) Psych Reports anxiety (increased) Endo Reports fatigue and Denies palpitations Physical exam (Primary Care) Vital Signs: Last Vital Signs Pulse 52 03/29/23 08:48 BP 130/66 03/29/23 08:48 Pulse Ox 97 03/29/23 08:48 Oxygen Delivery Method Room Air 03/29/23 08:48 BMI result Body Mass Index 21.9 Tobacco/Smoking Status: Tobacco use Status Tobacco use date assessed 03/29/23 03/29/23 08:49 Patient Tobacco Use Status Never used Tobacco 03/29/23 08:49 e-Cigarette/Vaping Use Never Used 03/29/23 08:49 PHQ-9: PHQ-9 Score PHQ-9: Total score 7 03/29/23 08:49 Depression Screening Interpretation: Positive Depression Screening Follow-up: Existing condition and In treatment Thrive Assessment: Date of Thrive Assessment Date Thrive assessed 03/29/23 03/29/23 08:49 Currently or been in a relationship where the following occur: no concerns reported Const General: no acute distress and alert HENMT Throat: Yes posterior oropharynx normal and Yes tonsils normal (no TP congestion) Neck Neck: Yes no lymphadenopathy and Yes supple Resp Auscultation: clear to auscultation bilaterally, no rales and no wheezes Cardio Rate: regular rate Rhythm: regular rhythm Heart sounds: no murmurs GI Palpation (GI): Soft to palpation, nontender and No hepatosplenomegaly present Skin General skin exam: no rashes or lesions noted Extrem General: Yes no clubbing, cyanosis or edema Assessment and Plan Assessment & Plan (1) GABRIELE (generalized anxiety disorder): Code(s): F41.1 - Generalized anxiety disorder Plan: Advised that most of his recent symptoms (weight loss, early satiety/abdominal bloating) are mostly aggravated by his increased anxiety Will increase his Escitalopram now to 10 mg QD Continue Lorazepam 0.5 mg Q HS PRN; advised that he can actually try taking it BID PRN but patient prefers not to as he is concerned about the habit-forming potential of the Rx Is also on Metoprolol ER 25 mg QD to help control his HR and keep him from experiencing increased palpitations from his anxiety (2) GERD (gastroesophageal reflux disease): Code(s): K21.9 - Gastro-esophageal reflux disease without esophagitis Qualifiers: Esophagitis presence: esophagitis presence not specified Qualified Code(s): K21.9 - Gastro-esophageal reflux disease without esophagitis Plan: Continue Omeprazole 40 mg QD Advised to take the Carafate 1 gm QID that he was prescribed for the 5 day period to at least help settle his stomach down and once he finishes it, he does not need to continue on it unless he wants to (3) 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: Code(s): C79.51 - Secondary malignant neoplasm of bone; C80.1 - Malignant (primary) neoplasm, unspecified Plan: S/P radiation Tx States that he is scheduled for a follow up CT at [facility] sometime in the next few weeks Plan Follow up with PCP as scheduled next month Medications: Changed From escitalopram oxalate (Lexapro) 5 mg PO DAILY 30 days 30 tabs 0RF F41.1 - Generalized anxiety disorder To escitalopram oxalate 10 mg PO DAILY 30 days 30 tabs 1RF F41.1 - Generalized anxiety disorder Discontinued omeprazole 20 mg PO DAILY 90 days 90 caps 1RF K21.9 - Gastro-esophageal reflux disease without esophagitis Coding Level of Care Code Est Pt Level 3 (26900) Diagnoses GABRIELE (generalized anxiety disorder) F41.1 GERD (gastroesophageal reflux disease) K21.9 Esophagitis presence: esophagitis presence not specified 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
== END 2023-03-29 09:39 | disposition home or self-care (01) ==
PROVIDERS: PCP Physician Assistant; Visit Provider Internal Medicine
DX: F41.1 Generalized anxiety disorder (principal); K21.9 Gastro-esophageal reflux disease without esophagitis; C79.51 Secondary malignant neoplasm of bone; C80.1 Malignant (primary) neoplasm, unspecified
CPT/HCPCS: 99213

== ENCOUNTER 2023-04-07 08:43 | Outpatient (REF) | payer MEDICARE, MEDICAID, SELFPAY ==
[2023-04-07 10:34] LABS: MANUAL DIFF FLAG NO
[2023-04-07 10:44] LABS: Basophils Percent Auto 0.3 % (0-2); Eosinophils Absolute Auto 0.1 X10*3/uL (0.0-0.4); Eosinophils Percent Auto 1.6 % (0-4); Hematocrit 39.8 % (42.0-52.0); Hemoglobin 13.2 g/dl (14.0-18.0); Imm Gran Abs Auto 0.05 X10*3/uL (0.00-0.03); Imm Gran Pct Auto 0.6 % (0.0-0.4); Lymphocytes Absolute Auto 1.3 X10*3/uL (1.2-4.9); Lymphocytes Percent Auto 16.5 % (20-40); Mean Corpuscular HGB Conc 33.2 g/dl (31.0-36.0); Mean Corpuscular Hemoglobin 30.2 pg (27.0-33.0); Mean Corpuscular Volume 91.1 fL (80.0-98.0); Mean Platelet Volume 10.2 fL (9.4-12.4); Monocytes Absolute Auto 0.8 X10*3/uL (0.1-1.2); Monocytes Percent Auto 9.5 % (2-11); Neutrophils Absolute Auto 5.7 x10*3/uL (2.0-8.3); Neutrophils Percent Auto 71.5 % (45-73); Platelet Count 210 X10*3/uL (160-400); Red Blood Count 4.37 X10*6/uL (4.60-5.80); Red Cell Distribution Width 13.8 % (11.0-16.0)
[2023-04-07 11:05] LABS: Alanine Aminotransferase 23 U/L (0-40); Albumin Level 4.1 g/dL (3.5-5.0); Alkaline Phosphatase 95 U/L (39-117); Anion Gap 13 (12-20); Aspartate Amino Transferase 19 U/L (5-37); Bilirubin Total 0.5 mg/dL (0.0-1.0); Blood Urea Nitrogen 22 mg/dL (9-16); Calcium 9.5 mg/dL (8.4-10.2); Carbon Dioxide 24 mmol/L (22-29); Chloride 107 mmol/L (96-108); Cholesterol 145 mg/dL; Estimated Glomerular Filt Rate > 60; Glucose Fasting 111 mg/dL (60-99); HDL Cholesterol 42 mg/dL; LDL Cholesterol Calculated 96 mg/dl; Potassium 3.8 mmol/L (3.3-5.1); Sodium 140 mmol/L (135-145); Total Protein 7.4 g/dL (6.5-8.0); Triglycerides 37 mg/dL
[2023-04-07 11:16] LABS: Prostate Specific Antigen 0.65 ng/mL (<0.05-4.0)
== END 2023-04-07 08:44 | disposition home or self-care (01) ==
LOC: HO.10HDL 08:43
PROVIDERS: Visit Provider Internal Medicine Medical Oncology
DX: Z12.5 Encounter for screening for malignant neoplasm of prostate (principal); C61 Malignant neoplasm of prostate; E66.3 Overweight; N40.0 Benign prostatic hyperplasia without lower urinary tract symptoms; R73.9 Hyperglycemia, unspecified
CPT/HCPCS: 36415; 80053; 80061; 84153; 85025

== ENCOUNTER 2023-04-13 16:54 | Outpatient (REF) | payer MEDICARE, MEDICAID, SELFPAY | END 2023-04-13 16:55 | disposition home or self-care (01) | LOC: HO.LNP 16:54 | PROVIDERS: Visit Provider Internal Medicine Medical Oncology | DX: J02.9 Acute pharyngitis, unspecified (principal) | CPT/HCPCS: 87070 ==

== ENCOUNTER 2023-04-14 06:50 | Emergency (ER) | payer MEDICARE, MEDICAID, SELFPAY ==
[2023-04-14 06:51] VITALS: BP 164/83; PULSE 81; RESP 18; TEMP 36.6; O2SAT 97; BMI 21.9
[2023-04-14 07:50] LABS: Appearance Urine Clear; Color Urine Yellow; Glucose Urine UA Negative (Negative); Leukocyte Esterase Urine Negative (Negative); Nitrite Urine Negative (Negative); PH 6.5 (5.0-9.0); Urine Blood Negative (Negative); Urine Ketones 15 mg/dL (Negative); Urine Protein Negative (Neg-Trace)
--- NOTE | 2023-04-14 07:52 | ED.PSYCH ---
HPI - Psych General Chief Complaint: Psychiatric Symptoms Stated Complaint: Crisis Time Seen by Provider: 04/14/23 07:02 Source: patient Mode of arrival: ambulatory Limitations: no limitations History of Present Illness HPI Narrative: 68 yo male with history of ?prostate cancer status post prostatectomy, hypertension, major depressive disorder, anxiety?here with complaints of generalized abdominal pain, nausea, poor appetite, 20lb weight loss x 2 months. Patient reports seen here 02/01, 03/19, 03/24 for same. Of note, was admitted 02/01 and had EGD which showed erosive esophagitis and started on omeprazole. Patient reports abdominal pain all the time. Eating does not worsen or relieve this. +nausea with no vomiting. +lack of energy, no appetite with weight loss. +Black stools for months. Formed with no reports of constipation or diarrhea. No AC therapy use. Feels anxious all the time, racing thoughts and depression, no desire to do anything. No SI/HI. NO substance use. Has been started on lexapro by PCP for depression but patient feels this is not helping. Has been seen by oncology and GI recently. During previous ER visits had CT of chest/abdomen/pelvis which have been normal with exception of ?metastatic lesion on right 8th rib. Patient had bone scan 01/12 (showed same lesion otherwise normal), most recently 04/01 (unknown results) Related Data Home Medications Medication Instructions Recorded Confirmed amoxicillin 500 mg capsule 500 mg PO TID 04/14/23 04/14/23 cholecalciferol (vitamin D3) 25 25 mcg PO DAILY 04/14/23 04/14/23 mcg (1,000 unit) tablet escitalopram oxalate 10 mg tablet 10 mg PO DAILY 04/14/23 04/14/23 metoprolol succinate 25 mg 25 mg PO DAILY 04/14/23 04/14/23 tablet,extended release 24 hr omeprazole 40 mg capsule,delayed 40 mg PO DAILY 04/14/23 04/14/23 release oxycodone-acetaminophen 5 mg-325 1 tab PO BID 04/14/23 04/14/23 mg tablet prednisone 20 mg tablet 20 mg PO DAILY 04/14/23 04/14/23 Previous Rx's Medication Instructions Recorded amlodipine 2.5 mg tablet 5 mg PO DAILY 90 days #180 tabs 12/21/22 Allergies Allergy/AdvReac Type Severity Reaction Status Date / Time [id number] Reductase AdvReac Intermediate Joint and Verified 03/29/23 09:08 Inhibitor muscle pain Review of Systems Review of Systems: Yes all other systems are reviewed and are negative Constitutional: Constitutional: Reports no additional constitutional complaints, Denies body ache(s), Denies chills, Denies fever(s), Denies headache(s), Reports lethargy, Reports poor appetite, Denies weakness and Reports weight loss Eyes: Eyes: Reports no additional eye complaints and Denies change in vision ENT: Reports system reviewed and no additional complaints, except as documented, Denies dizziness, Denies headache(s), Denies nasal congestion, Denies nasal discharge and Denies neck pain Cardiovascular: Cardiovascular: Reports no additional cardiovascular complaints, Denies chest pain, Denies leg edema and Denies dyspnea Respiratory: Respiratory: Reports no additional respiratory complaints, Denies cough and Denies dyspnea Gastrointestinal: Gastrointestinal: Reports no additional gastrointestinal complaints, Reports abdominal pain, Reports melena, Denies diarrhea, Reports nausea and Denies vomiting Genitourinary: Genitourinary: Denies urinary incontinence Musculoskeletal: Musculoskeletal: Reports no additional musculoskeletal complaints, Denies back pain, Denies arthralgias, Denies joint swelling, Denies neck pain, Denies numbness and Denies tingling Integumentary/Breasts: Skin/Breast: Reports system reviewed and no additional complaints, except as docu and Denies rash Neurologic: Reports system reviewed and no additional complaints, except as documented, Denies Abnormal speech present, Denies dizziness, Denies headache(s), Denies numbness, Denies tingling and Denies weakness Psychiatric: Psychiatric: Reports anxiety, Reports depression, Denies homicidal ideation and Denies suicidal ideation [facility] Past Medical History Attestation statement: The following information was validated with the patient. Source: old records reviewed and nursing notes reviewed Medical History Achilles tendon pain Acute upper gastrointestinal bleeding Annual physical exam Anxiety Asthma Borderline high cholesterol BRBPR (bright red blood per rectum) Cough HTN (hypertension) Hypogonadism in male MDD (major depressive disorder), recurrent episode Other forms of dyspnea Pathologic rib fracture Prostate cancer Prostate cancer metastatic to bone Right shoulder pain Surgical History H/O endoscopy H/O prostatectomy Family History Family History Father Pneumonia Substance abuse Mother CAD (coronary artery disease) CHF (congestive heart failure) Brother Stomach cancer Substance abuse Sister Breast cancer Substance abuse Social History Social History Household Members: Friend(s) Housing: House Do you presently have visiting nurse or other home services: No Alcohol intake: never Patient Tobacco Use Status: Never used Tobacco Years Smoked: 40 yrs e-Cigarette/Vaping Use: Never Used Second Hand Smoke Exposure: No Substance Use Type: Marijuana service: No Current occupational status: unemployed Current occupation: [employer] Cognitive needs: No Hearing needs: No Vision needs: No (Pt went to an eye doctor about 4 years ago. ) Physical Exam Vital Signs: Vital Signs: Last Vital Signs Temp 97.9 F 04/14/23 06:51 Pulse 81 04/14/23 06:51 Resp 18 04/14/23 06:51 BP 164/83 H 04/14/23 06:51 Pulse Ox 97 04/14/23 06:51 O2 Del Method Room Air 04/14/23 06:51 BMI result Body Mass Index 21.9 Const: General: cooperative, healthy appearing, comfortable and no acute distress Orientation/consciousness: patient oriented x3 Limitations: no limitations HEENT: Head: Yes normal to inspection Ears: hearing grossly normal bilaterally General nose exam: Normal external nose present Face and sinus: Yes normal facial exam Mouth: Normal oral and palatal mucosa present Throat: Yes posterior oropharynx normal Eyes: General: appearance normal, both eyes and all related structures Pupils: Equal, round and reactive pupils present Neck: Neck: Yes normal visual inspection Chest: Chest palpation & inspection: normal inspection of the chest Resp: Effort & Inspection: normal respiratory effort Auscultation: clear to auscultation bilaterally Cardio: Rate: regular rate Rhythm: regular rhythm Peripheral pulses: Peripheral pulses 2+ throughout GI: Other: +dark stool on rectal Inspection: Yes normal to inspection Palpation (GI): Soft to palpation and Tenderness to palpation present (GI) (mild diffuse tenderness with no rebound or guarding ) Auscultation: normal bowel sounds Back/Spine/Pelvis: Thoracic/Lumbar Spine: thoracic and lumbar spine normal to inspection Skin: General skin exam: no rashes or lesions noted Neuro: General: patient oriented x3, no focal motor deficits and normal sensation to monofilament Cranial nerves: Yes Equal, round and reactive pupils present Cognition (Neuro): normal cognition Speech: No Abnormal speech present Gait exam (Neuro): Normal gait present Motor exam (neuro): 5/5 motor strength present throughout Extrem: General: Yes normal to inspection Course Course Course Narrative: Labs show mild anemia unchanged from previous, otherwise unremarkable. Occult stool negative for blood. Doubt acute abdomen or GIB. Patient was seen by our care team as well as our psychiatry nurse practitioner. Plan is for med review, med changes, observation overnight and repeat assessment in the morning. Placed in physician obs pending disposition. Medications reconciled. Medications Administered Generic Name Dose Route Start Last Admin Trade Name Freq PRN Reason Stop Dose Admin Diazepam 5 mg 04/14/23 14:30 04/14/23 14:39 Diazepam 5 Mg Tablet PO 5 mg BID HAYDEE Administration Escitalopram Oxalate 20 mg 04/14/23 14:05 04/14/23 14:39 Escitalopram Oxalate 20 Mg Tablet PO 20 mg DAILY HAYDEE Administration Lidocaine 1 patch 04/14/23 13:55 04/14/23 14:46 Lidocaine 4 % Patch Adh..Patch TRANSDERMA 1 patch DAILY HAYDEE Administration Protocol Simethicone 80 mg 04/14/23 15:00 04/14/23 14:39 Simethicone 80 Mg Tab.Chew PO 80 mg TID HAYDEE Administration Discontinued Medications Generic Name Dose Route Start Last Admin Trade Name Freq PRN Reason Stop Dose Admin Acetaminophen 975 mg 04/14/23 15:04 04/14/23 15:14 Acetaminophen 325 Mg Tablet PO 04/14/23 15:05 975 mg ONCE ONE Administration Oxycodone HCl 5 mg 04/14/23 15:04 04/14/23 15:14 Oxycodone Hcl Immed Release 5 Mg Tablet PO 04/14/23 15:05 5 mg ONCE ONE Administration Medical Decision Making Medical Decision Making [facility] Narrative: 68 yo male w/ history of?prostate cancer status post prostatectomy, hypertension, major depressive disorder, anxiety?here with complaints of months of abdominal pain, nausea, black stools, weight loss, anxiety, depression. Patient with multiple ER visits with negative workups. Patient is also quite connected with his primary care, outpatient oncology and GI. Of note during his last ER visit he was seen by care team was given outpatient referrals for Psychiatry and therapy. Patient reports he has not been able to get connected with them yet. On arrival patient is quite anxious, difficult to redirect, complaining of racing thoughts, seems to be perseverating on exam. Abdomen has mild tenderness diffusely with no rebound or guarding. Normal bowel sounds. Rectal exam does show dark stool. Vitals are stable Will check labs, occult stool, UA, drug screen Once medically cleared patient will need a crisis evaluation. Differential Diagnosis Differential Diagnoses: The differential diagnosis associated with the presentation includes GI bleed, esophagitis, PUD Low concern for acute abdomen including of cholecystitis, pancreatitis, appendicitis Considered malignancy but low concern with multiple recent scans including nuclear bone scan both in December and March of this year Anxiety, depression, adjustment disorder Consult Healthcare Provider Management of the patient was discussed with: Haulpak Driver patient seen by Care team and our manager underwriting (Marj). Plan for med review, med changes and obs overnight with re-assessment in the AM. Lab Data MDM Lab Attestation statement: I reviewed the patient's lab results. 04/14/23 08:32 04/14/23 08:32 Labs: Lab Results 04/14/23 04/14/23 04/14/23 Range/Units 07:36 07:36 08:16 WBC (4.8-10.8) X10*3/uL RBC (4.60-5.80) X10*6/uL Hgb (14.0-18.0) g/dl Hct (42.0-52.0) % MCV (80.0-98.0) fL MCH (27.0-33.0) pg MCHC (31.0-36.0) g/dl RDW (11.0-16.0) % Plt Count (160-400) X10*3/uL MPV (9.4-12.4) fL Immature Gran % (Auto) (0.0-0.4) % Neut % (Auto) (45-73) % Lymph % (Auto) (20-40) % [place] % (Auto) (2-11) % Eos % (Auto) (0-4) % Baso % (Auto) (0-2) % Lymph # (Auto) (1.2-4.9) X10*3/uL [place] # (Auto) (0.1-1.2) X10*3/uL Eos # (Auto) (0.0-0.4) X10*3/uL Baso # (Auto) (0.0-0.2) X10*3/uL Abs Immat Gran (auto) (0.00-0.03) X10*3/uL Absolute Neuts (auto) (2.0-8.3) x10*3/uL Absolute Nucleated RBC (0.0-0.012) X10*3/uL Nucleated RBC % (auto) (0.0-0.2) /100WBC Sodium (135-145) mmol/L Potassium (3.3-5.1) mmol/L Chloride (96-108) mmol/L Carbon Dioxide (22-29) mmol/L Anion Gap (12-20) BUN (9-16) mg/dL Creatinine (0.5-1.4) mg/dL Estim Creat Clear Calc Estimated GFR Random Glucose (60-115) mg/dL Calcium (8.4-10.2) mg/dL Total Bilirubin (0.0-1.0) mg/dL AST (5-37) U/L ALT (0-40) U/L Alkaline Phosphatase (39-117) U/L Total Protein (6.5-8.0) g/dL Albumin (3.5-5.0) g/dL Lipase (8-78) U/L TSH (0.32-4.0) uIU/mL Urine Color Yellow Urine Appearance Clear Urine pH 6.5 (5.0-9.0) Ur Specific [place] 1.020 (1.005-1.025) Urine Protein Negative (Neg-Trace) mg/dL Urine Glucose (UA) Negative (Negative) mg/dL Urine Ketones 15 (Negative) mg/dL Urine Blood Negative (Negative) Urine Nitrite Negative (Negative) Ur Leukocyte Esterase Negative (Negative) Stool Occult Blood NEGATIVE (NEGATIVE) Urine Opiates Screen Not Detected (Not Detect) Urine Fentanyl Screen Not Detected (Not Detect) Ur Barbiturates Screen Not Detected (Not Detect) Ur Phencyclidine Scrn Not Detected (Not Detect) Ur Amphetamines Screen Not Detected (Not Detect) U Benzodiazepines Scrn Not Detected (Not Detect) Urine Cocaine Screen Not Detected (Not Detect) U Marijuana (THC) Screen POSITIVE H (Not Detect) Ethyl Alcohol mg/dL 04/14/23 04/14/23 04/14/23 Range/Units 08:32 08:32 08:32 WBC 9.0 (4.8-10.8) X10*3/uL RBC 4.35 L (4.60-5.80) X10*6/uL Hgb 13.1 L (14.0-18.0) g/dl Hct 39.7 L (42.0-52.0) % MCV 91.3 (80.0-98.0) fL MCH 30.1 (27.0-33.0) pg MCHC 33.0 (31.0-36.0) g/dl RDW 13.9 (11.0-16.0) % Plt Count 183 (160-400) X10*3/uL MPV 9.6 (9.4-12.4) fL Immature Gran % (Auto) 0.3 (0.0-0.4) % Neut % (Auto) 78.0 H (45-73) % Lymph % (Auto) 12.5 L (20-40) % [place] % (Auto) 7.9 (2-11) % Eos % (Auto) 1.1 (0-4) % Baso % (Auto) 0.2 (0-2) % Lymph # (Auto) 1.1 L (1.2-4.9) X10*3/uL [place] # (Auto) 0.7 (0.1-1.2) X10*3/uL Eos # (Auto) 0.1 (0.0-0.4) X10*3/uL Baso # (Auto) 0.0 (0.0-0.2) X10*3/uL Abs Immat Gran (auto) 0.03 (0.00-0.03) X10*3/uL Absolute Neuts (auto) 7.0 (2.0-8.3) x10*3/uL Absolute Nucleated RBC 0.000 (0.0-0.012) X10*3/uL Nucleated RBC % (auto) 0.0 (0.0-0.2) /100WBC Sodium 140 (135-145) mmol/L Potassium 3.8 (3.3-5.1) mmol/L Chloride 105 (96-108) mmol/L Carbon Dioxide 27 (22-29) mmol/L Anion Gap 12 (12-20) BUN 13 (9-16) mg/dL Creatinine 0.69 (0.5-1.4) mg/dL Estim Creat Clear Calc 115.0 Estimated GFR > 60 Random Glucose 105 (60-115) mg/dL Calcium 9.4 (8.4-10.2) mg/dL Total Bilirubin 0.5 (0.0-1.0) mg/dL AST 20 (5-37) U/L ALT 23 (0-40) U/L Alkaline Phosphatase 113 (39-117) U/L Total Protein 7.2 (6.5-8.0) g/dL Albumin 4.0 (3.5-5.0) g/dL Lipase (8-78) U/L TSH 0.88 (0.32-4.0) uIU/mL Urine Color Urine Appearance Urine pH (5.0-9.0) Ur Specific [place] (1.005-1.025) Urine Protein (Neg-Trace) mg/dL Urine Glucose (UA) (Negative) mg/dL Urine Ketones (Negative) mg/dL Urine Blood (Negative) Urine Nitrite (Negative) Ur Leukocyte Esterase (Negative) Stool Occult Blood (NEGATIVE) Urine Opiates Screen (Not Detect) Urine Fentanyl Screen (Not Detect) Ur Barbiturates Screen (Not Detect) Ur Phencyclidine Scrn (Not Detect) Ur Amphetamines Screen (Not Detect) U Benzodiazepines Scrn (Not Detect) Urine Cocaine Screen (Not Detect) U Marijuana (THC) Screen (Not Detect) Ethyl Alcohol < 10 mg/dL 04/14/23 Range/Units 08:32 WBC (4.8-10.8) X10*3/uL RBC (4.60-5.80) X10*6/uL Hgb (14.0-18.0) g/dl Hct (42.0-52.0) % MCV (80.0-98.0) fL MCH (27.0-33.0) pg MCHC (31.0-36.0) g/dl RDW (11.0-16.0) % Plt Count (160-400) X10*3/uL MPV (9.4-12.4) fL Immature Gran % (Auto) (0.0-0.4) % Neut % (Auto) (45-73) % Lymph % (Auto) (20-40) % [place] % (Auto) (2-11) % Eos % (Auto) (0-4) % Baso % (Auto) (0-2) % Lymph # (Auto) (1.2-4.9) X10*3/uL [place] # (Auto) (0.1-1.2) X10*3/uL Eos # (Auto) (0.0-0.4) X10*3/uL Baso # (Auto) (0.0-0.2) X10*3/uL Abs Immat Gran (auto) (0.00-0.03) X10*3/uL Absolute Neuts (auto) (2.0-8.3) x10*3/uL Absolute Nucleated RBC (0.0-0.012) X10*3/uL Nucleated RBC % (auto) (0.0-0.2) /100WBC Sodium (135-145) mmol/L Potassium (3.3-5.1) mmol/L Chloride (96-108) mmol/L Carbon Dioxide (22-29) mmol/L Anion Gap (12-20) BUN (9-16) mg/dL Creatinine (0.5-1.4) mg/dL Estim Creat Clear Calc Estimated GFR Random Glucose (60-115) mg/dL Calcium (8.4-10.2) mg/dL Total Bilirubin (0.0-1.0) mg/dL AST (5-37) U/L ALT (0-40) U/L Alkaline Phosphatase (39-117) U/L Total Protein (6.5-8.0) g/dL Albumin (3.5-5.0) g/dL Lipase 13 (8-78) U/L TSH (0.32-4.0) uIU/mL Urine Color Urine Appearance Urine pH (5.0-9.0) Ur Specific [place] (1.005-1.025) Urine Protein (Neg-Trace) mg/dL Urine Glucose (UA) (Negative) mg/dL Urine Ketones (Negative) mg/dL Urine Blood (Negative) Urine Nitrite (Negative) Ur Leukocyte Esterase (Negative) Stool Occult Blood (NEGATIVE) Urine Opiates Screen (Not Detect) Urine Fentanyl Screen (Not Detect) Ur Barbiturates Screen (Not Detect) Ur Phencyclidine Scrn (Not Detect) Ur Amphetamines Screen (Not Detect) U Benzodiazepines Scrn (Not Detect) Urine Cocaine Screen (Not Detect) U Marijuana (THC) Screen (Not Detect) Ethyl Alcohol mg/dL External Record Review External record reviewed: Inpatient record Reviewed inpatient record from January 30 where patient was admitted for esophagitis requiring GI consult and EGD Discharge Plan Discharge Clinical Impression: Anxiety Patient Disposition: Still a Patient Prescriptions: No Action amlodipine 2.5 mg tablet 5 mg PO DAILY 90 Days Qty: 180 3RF prednisone 20 mg tablet 20 mg PO DAILY oxycodone-acetaminophen 5-325 mg tablet 1 tab PO BID omeprazole 40 mg capsule,delayed release(DR/EC) 40 mg PO DAILY escitalopram oxalate 10 mg tablet 10 mg PO DAILY amoxicillin 500 mg capsule 500 mg PO TID metoprolol succinate 25 mg tablet extended release 24 hr 25 mg PO DAILY cholecalciferol (vitamin D3) 25 mcg (1,000 unit) tablet 25 mcg PO DAILY Interventions: [place]-Suicide Risk Severity Scale Last Done: 04/14/23 06:55
[2023-04-14 08:03] LABS: Amphetamine Screen Urine Not Detected (Not Detect); Barbiturates, Urine Not Detected (Not Detect); Benzodiazepines Screen Urine Not Detected (Not Detect); Cannabinoid Screen Urine POSITIVE (Not Detect); Cocaine Screen Urine Not Detected (Not Detect); Fentanyl, urine Not Detected (Not Detect); Opiate Screen Urine Not Detected (Not Detect); Phencyclidine Screen Urine Not Detected (Not Detect)
[2023-04-14 08:38] LABS: MANUAL DIFF FLAG NO
[2023-04-14 08:40] LABS: Basophils Percent Auto 0.2 % (0-2); Eosinophils Absolute Auto 0.1 X10*3/uL (0.0-0.4); Eosinophils Percent Auto 1.1 % (0-4); Hematocrit 39.7 % (42.0-52.0); Hemoglobin 13.1 g/dl (14.0-18.0); Imm Gran Abs Auto 0.03 X10*3/uL (0.00-0.03); Imm Gran Pct Auto 0.3 % (0.0-0.4); Lymphocytes Absolute Auto 1.1 X10*3/uL (1.2-4.9); Lymphocytes Percent Auto 12.5 % (20-40); Mean Corpuscular Hemoglobin 30.1 pg (27.0-33.0); Mean Corpuscular Volume 91.3 fL (80.0-98.0); Mean Platelet Volume 9.6 fL (9.4-12.4); Monocytes Absolute Auto 0.7 X10*3/uL (0.1-1.2); Monocytes Percent Auto 7.9 % (2-11); Platelet Count 183 X10*3/uL (160-400); Red Blood Count 4.35 X10*6/uL (4.60-5.80); Red Cell Distribution Width 13.9 % (11.0-16.0)
[2023-04-14 08:43] LABS: OBS1 NEGATIVE (NEGATIVE)
[2023-04-14 08:44] LABS: OBS Int Ctl Valid YES
[2023-04-14 08:51] LABS: Lipase 13 U/L (8-78)
[2023-04-14 08:58] LABS: Alanine Aminotransferase 23 U/L (0-40); Alkaline Phosphatase 113 U/L (39-117); Anion Gap 12 (12-20); Aspartate Amino Transferase 20 U/L (5-37); Bilirubin Total 0.5 mg/dL (0.0-1.0); Blood Urea Nitrogen 13 mg/dL (9-16); Calcium 9.4 mg/dL (8.4-10.2); Carbon Dioxide 27 mmol/L (22-29); Chloride 105 mmol/L (96-108); Estimated Glomerular Filt Rate > 60; Ethanol < 10 mg/dL; Glucose Random 105 mg/dL (60-115); Potassium 3.8 mmol/L (3.3-5.1); Sodium 140 mmol/L (135-145); Total Protein 7.2 g/dL (6.5-8.0)
[2023-04-14 09:15] LABS: TSH reflex Free T4 0.88 uIU/mL (0.32-4.0)
--- NOTE | 2023-04-14 11:25 | PHA.MEDREC ---
Pharmacy Consult ? Medication Reconciliation Pharmacy has completed the medication reconciliation. reviewed med rec done by nursing.
--- NOTE | 2023-04-14 12:29 | MHC.CARE ---
Pt has been referred to [facility] and [facility]
--- NOTE | 2023-04-14 14:09 | PHA.MEDREC ---
Pharmacy Consult ? Medication Reconciliation Pharmacy has reviewed the medication reconciliation completed by Raghavendra. Juliann Ricci, LavonD
--- NOTE | 2023-04-14 14:27 | MHC.CARE ---
Bogdan Santos made med changes.We will reassess in the AM.
--- NOTE | 2023-04-14 14:27 | PM.PSYCN ---
History of Present Illness Date of Service: 04/14/2023 Chief Complaint: Crisis Reason for Consult: depression and anxiety Requesting physician: Karin Liang Discussed with referring provider: Yes Sources of Information: patient interviewed, chart reviewed and crisis/core team assessment reviewed HPI Narrative: Mr. Briceno is a 68 year-old male with hx of depression. Pt self presented to ED reporting increase anxious mood, depressed mood in combination with increase GI symptoms (nausea, feeling of bloating and fullness) that have affected his oral intake causing weight loss of more than 10 Lbs in past month. He also reports rib pain. He has hx of prostatic cancer and recently had chest CT that showed nodules, although pt reports he met with oncologist and was reassured that it was not metastatic cancer but still pending biopsy. Pt seen in the room. He presents as dysphoric and very anxious. He reports rib pain (of unclear etiology at this point) keeping him up. He also reports increase anxiety and worry about his health. He describes combination of emotional and physical pain, although degree of anxiety and depression seems to affect his ability to function more than physical symptoms at this point. Pt reports he does not feel he could go to appointments due to his severe anxiety and depressed mood. He reports passive suicidality. He denies any plan or intent but states he can't live like this any longer. He was started on lexapro initially 5mg po daily about 6 weeks ago. Lexapro was increased to 10mg po daily about 3 weeks. He denies hx of hallucinations. He denies hx of increased energey, grandiose ideas, or expansive mood. He denies hx of suicide attempts. Past Psychiatric History: Inpatient: none OP: none Past medication trials: ativan (short relief), lexapro (partial relief) Medical Evaluation Reviewed: Yes Review of Systems Review of Systems Pt reports rib pain that comes and goes. He reports nausea, reports feeling full and bloated affecting his appetite. No diarrhea, no constipation. No abdominal pain. No chest pain. [facility] Medical History Achilles tendon pain Acute upper gastrointestinal bleeding Annual physical exam Anxiety Asthma Borderline high cholesterol BRBPR (bright red blood per rectum) Cough HTN (hypertension) Hypogonadism in male MDD (major depressive disorder), recurrent episode Other forms of dyspnea Pathologic rib fracture Prostate cancer Prostate cancer metastatic to bone Right shoulder pain Surgical History H/O endoscopy H/O prostatectomy Diagnostics Vital Signs (24Hr): Vital Signs - 24 hr 04/14/23 06:51 Temperature 97.9 F Pulse Rate 81 Respiratory Rate 18 Blood Pressure 164/83 H Pulse Oximetry 97 Oxygen Delivery Method Room Air BMI result Body Mass Index 21.9 Labs 04/14/23 08:32 04/14/23 08:32 Labs: Laboratory Results - last 48 hr 04/14/23 04/14/23 04/14/23 07:36 07:36 08:16 WBC RBC Hgb Hct MCV MCH MCHC RDW Plt Count MPV Immature Gran % (Auto) Neut % (Auto) Lymph % (Auto) [place] % (Auto) Eos % (Auto) Baso % (Auto) Lymph # (Auto) [place] # (Auto) Eos # (Auto) Baso # (Auto) Abs Immat Gran (auto) Absolute Neuts (auto) Absolute Nucleated RBC Nucleated RBC % (auto) Sodium Potassium Chloride Carbon Dioxide Anion Gap BUN Creatinine Estim Creat Clear Calc Estimated GFR Random Glucose Calcium Total Bilirubin AST ALT Alkaline Phosphatase Total Protein Albumin Lipase TSH Urine Color Yellow Urine Appearance Clear Urine pH 6.5 Ur Specific [place] 1.020 Urine Protein Negative Urine Glucose (UA) Negative Urine Ketones 15 Urine Blood Negative Urine Nitrite Negative Ur Leukocyte Esterase Negative Stool Occult Blood NEGATIVE Urine Opiates Screen Not Detected Urine Fentanyl Screen Not Detected Ur Barbiturates Screen Not Detected Ur Phencyclidine Scrn Not Detected Ur Amphetamines Screen Not Detected U Benzodiazepines Scrn Not Detected Urine Cocaine Screen Not Detected U Marijuana (THC) Screen POSITIVE H Ethyl Alcohol 04/14/23 04/14/23 04/14/23 08:32 08:32 08:32 WBC 9.0 RBC 4.35 L Hgb 13.1 L Hct 39.7 L MCV 91.3 MCH 30.1 MCHC 33.0 RDW 13.9 Plt Count 183 MPV 9.6 Immature Gran % (Auto) 0.3 Neut % (Auto) 78.0 H Lymph % (Auto) 12.5 L [place] % (Auto) 7.9 Eos % (Auto) 1.1 Baso % (Auto) 0.2 Lymph # (Auto) 1.1 L [place] # (Auto) 0.7 Eos # (Auto) 0.1 Baso # (Auto) 0.0 Abs Immat Gran (auto) 0.03 Absolute Neuts (auto) 7.0 Absolute Nucleated RBC 0.000 Nucleated RBC % (auto) 0.0 Sodium 140 Potassium 3.8 Chloride 105 Carbon Dioxide 27 Anion Gap 12 BUN 13 Creatinine 0.69 Estim Creat Clear Calc 115.0 Estimated GFR > 60 Random Glucose 105 Calcium 9.4 Total Bilirubin 0.5 AST 20 ALT 23 Alkaline Phosphatase 113 Total Protein 7.2 Albumin 4.0 Lipase TSH 0.88 Urine Color Urine Appearance Urine pH Ur Specific [place] Urine Protein Urine Glucose (UA) Urine Ketones Urine Blood Urine Nitrite Ur Leukocyte Esterase Stool Occult Blood Urine Opiates Screen Urine Fentanyl Screen Ur Barbiturates Screen Ur Phencyclidine Scrn Ur Amphetamines Screen U Benzodiazepines Scrn Urine Cocaine Screen U Marijuana (THC) Screen Ethyl Alcohol < 10 04/14/23 08:32 WBC RBC Hgb Hct MCV MCH MCHC RDW Plt Count MPV Immature Gran % (Auto) Neut % (Auto) Lymph % (Auto) [place] % (Auto) Eos % (Auto) Baso % (Auto) Lymph # (Auto) [place] # (Auto) Eos # (Auto) Baso # (Auto) Abs Immat Gran (auto) Absolute Neuts (auto) Absolute Nucleated RBC Nucleated RBC % (auto) Sodium Potassium Chloride Carbon Dioxide Anion Gap BUN Creatinine Estim Creat Clear Calc Estimated GFR Random Glucose Calcium Total Bilirubin AST ALT Alkaline Phosphatase Total Protein Albumin Lipase 13 TSH Urine Color Urine Appearance Urine pH Ur Specific [place] Urine Protein Urine Glucose (UA) Urine Ketones Urine Blood Urine Nitrite Ur Leukocyte Esterase Stool Occult Blood Urine Opiates Screen Urine Fentanyl Screen Ur Barbiturates Screen Ur Phencyclidine Scrn Ur Amphetamines Screen U Benzodiazepines Scrn Urine Cocaine Screen U Marijuana (THC) Screen Ethyl Alcohol Mental Status Exam Mental Status Exam Narrative: Appearance: wearing hospital gown, fair hygiene, restless Behavior: slightly guarded Psychomotor: no agitation or retardation noted Speech: clear, normal rate/rhythm/volume, spontaneous TP: repetitive at times, tangential TC: not doing well physically and emotionally but also worried about being on medications Mood: anxious Affect: dysphoric SI: passive HI: none VH/AH: none Delusions: none Insight/judgment: fair x 2. Memory/cog: alert, oriented x 3. Medications Medications Current Medications Amlodipine Besylate (Amlodipine Besylate 5 Mg Tablet) 5 mg PO DAILY HAYDEE; Protocol Diazepam (Diazepam 5 Mg Tablet) 5 mg PO BID HAYDEE Escitalopram Oxalate (Escitalopram Oxalate 20 Mg Tablet) 20 mg PO DAILY HAYDEE Lidocaine (Lidocaine 4 % Patch Adh..Patch) 1 patch TRANSDERMA DAILY HAYDEE; Protocol Omeprazole (Omeprazole 40 Mg Capsule.Dr) 40 mg PO DAILY HAYDEE Simethicone (Simethicone 80 Mg Tab.Chew) 80 mg PO TID HAYDEE Allergies Allergies Allergy/AdvReac Type Severity Reaction Status Date / Time [id number] Reductase AdvReac Intermediate Joint and Verified 03/29/23 09:08 Inhibitor muscle pain Assessment & Plan Assessment & Plan (1) MDD (major depressive disorder), recurrent episode, severe: Status: Acute Code(s): F33.2 - Major depressive disorder, recurrent severe without psychotic features Plan Mr. Briceno is a 68 year-old male with hx of depression, which has exacerbated in the past 2 months. He reports increase anxiety related to possibility of return of cancer but reports his oncologist does not think nodules are metastasis of his former prostate cancer. He reports rib pain (of unclear etiology?) taking oxycodone for it. He reports GI symptoms including feeling bloated and full which has affected his appetite and oral intake and as result he reports weight loss of more than 10lb in past month or so. Pt reports passive SI. He reports not functioning as he used to mostly due to anxious and depressed mood. He is very ambivalent about psychiatric treatment due to his severe anxiety but also due to stigma of being labeled a psychiatric patient. We discussed that his symptoms are significantly affecting his ability to function in that he does not feel he can go to appointments or sleep, has intrusive thoughts and ruminates about somatic concern. We discussed risks, benefits and alternative treatment options- recommend to increase lexapro to 20mg po daily. Recommend diazepam short term for anxiety as it may last long and offered more consistent relief of anxiety. We also discuss considering abilify low dose to boost effect of antidepressant and help decrease ruminations, and restlessness related to anxious and depressed mood. However, pt agrees for now to increase lexapro to 20mg po daily and diazepam 5mg po BID, which can be increase to 5mg po TID. PLAN 1. If pt in agreement, he may benefit from voluntary admission to inpatient psychiatric unit due to severity of symptoms affecting his ability to function although not at imminent risk to harm to self or others to consider involuntary. 2. Increase to lexapro 20mg po daily. d/c ativan. start diazepam 5mg po BID, can increase to 5mg po TID for anxiety. 3. Consider, if pt in agreement adding abilify 5mg po daily. Total time managing care of this patient today ____ minutes.
[2023-04-14] MEDS: Simethicone 80 MG TAB.CHEW PO ×2 (14:39→21:35)
[2023-04-14] MEDS: diazePAM 5 MG TABLET PO ×2 (14:39→21:36)
[2023-04-14] MEDS: Escitalopram Oxalate 20 MG TABLET PO (14:39)
[2023-04-14] MEDS: Lidocaine 4 % Patch ADH..PATCH 1 PATCH TRANSDERMA (14:46)
[2023-04-14] MEDS: Acetaminophen 325 MG TABLET 975 MG PO (15:14)
[2023-04-14] MEDS: oxyCODONE HCl Immed Release 5 MG TABLET PO ×2 (15:14→21:35)
--- NOTE | 2023-04-14 18:46 | PC.NURSE ---
pt has been calm and cooperative, seems to be less anxious. will reassess in am
[2023-04-14] MEDS: Amoxicillin 500 MG CAPSULE PO (19:37)
[2023-04-14] MEDS: Metoprolol Succinate ER 25 MG TAB.ER.24H PO (19:37)
[2023-04-14] MEDS: Cholecalciferol (Vitamin D3) 25 MCG TABLET PO (19:38)
[2023-04-14 19:47] VITALS: BP 134/60; PULSE 63; RESP 20; TEMP 36.6; O2SAT 99
--- NOTE | 2023-04-15 05:17 | PC.NURSE ---
Patient slept through the night, no distress observed/reported, behavior non concerning, medication compliant, patient was assessed by care team, disposition pending at this time, patient will be re-evaluated in the morning, psych provider recommended for inpatient level of care, VSS, will continue to monitor.
[2023-04-15] MEDS: Omeprazole 40 MG CAPSULE.DR PO (06:11)
[2023-04-15 06:17] VITALS: BP 134/64; PULSE 51; RESP 18; TEMP 36.6; O2SAT 98
--- NOTE | 2023-04-15 07:21 | PC.NURSE ---
received pt in room. Up to BR this am with steady gait. Ate breakfast. PLan is to re-eval today. No distress noted at this time.
[2023-04-15] MEDS: Lidocaine 4 % Patch ADH..PATCH 1 PATCH TRANSDERMA (09:32)
[2023-04-15] MEDS: amLODIPine Besylate 5 MG TABLET PO (09:34)
[2023-04-15] MEDS: Simethicone 80 MG TAB.CHEW PO (09:34)
[2023-04-15] MEDS: Amoxicillin 500 MG CAPSULE PO (09:34)
[2023-04-15] MEDS: Cholecalciferol (Vitamin D3) 25 MCG TABLET PO (09:34)
[2023-04-15] MEDS: Escitalopram Oxalate 20 MG TABLET PO (09:45)
--- NOTE | 2023-04-15 09:48 | PC.NURSE ---
pt refused valium, prednisone, metoprolol. states metoprolol makes him dizzy. BP 119/44, HR 64 machine reads HR 54. pt able to negotiate med pass.
== END 2023-04-15 11:20 | disposition home or self-care (01) ==
PROVIDERS: Nurse Practitioner Family; Emergency Provider Emergency Medicine; PCP Physician Assistant
DX: F33.2 Major depressive disorder, recurrent severe without psychotic features (principal); F41.1 Generalized anxiety disorder; F43.0 Acute stress reaction; D64.9 Anemia, unspecified; Z79.899 Other long term (current) drug therapy
CPT/HCPCS: 36415; 80053; 80307; 81003; 82272; 83690; 84443; 85025; 99285; S9485

== ENCOUNTER → 2023-04-14 07:25 | Outpatient (BNV) | payer MEDICARE, MEDICAID, SELFPAY | PROVIDERS: Emergency Provider Emergency Medicine; PCP Physician Assistant; Visit Provider Social Worker | DX: F33.2 Major depressive disorder, recurrent severe without psychotic features (principal) | CPT/HCPCS: 99285 ==

== ENCOUNTER 2023-04-25 04:47 | Emergency (ER) | payer MEDICARE, MEDICAID, SELFPAY ==
--- NOTE | ~2023-04-25 | CT_ITS ---
EXAMINATION: CT HEAD WITHOUT CONTRAST CLINICAL INFORMATION: Acute severe frontal headache COMPARISON: None available. TECHNIQUE: Contiguous axial imaging was performed from the skull base to vertex without intravenous administration of contrast. This CT examination was performed using dose optimization techniques as appropriate, variously including the following: *Automated exposure control *Adjustment of mA and/or kV according to patient size (this includes techniques or standardized protocols for targeted exams where dose is matched to indication/reason for exam; i.e. extremities or head) *Use of iterative reconstruction technique DLP: 707 mGy-cm FINDINGS: There is no evidence of acute intracranial hemorrhage or territorial infarction. No abnormal mass-effect or midline shift is seen. [place] to white matter differentiation is well preserved. No extra-axial fluid collections are identified. The ventricles are normal in size. There is minimal periventricular white matter hypoattenuation consistent with chronic small vessel ischemic disease. Mild volume loss is noted. No acute fracture seen. Scattered cutaneous nodules noted posteriorly. The mastoid air cells and visualized portions of the paranasal sinuses are well-aerated. CT/CT head/brain wo IV con IMPRESSION: No acute intracranial pathology.
[2023-04-25 04:54] VITALS: BP 164/58; PULSE 56; RESP 18; TEMP 36.5; O2SAT 96; BMI 21.3
--- NOTE | 2023-04-25 05:11 | ED_ITS ---
HPI - General Adult General Chief complaint: Headache Stated complaint: headache Time Seen by Provider: 04/25/23 04:54 Source: patient Mode of arrival: ambulatory Limitations: no limitations History of Present Illness HPI narrative: 68-year-old male with history of prostate cancer presents with headache. The headache is frontal. It is severe. Started at 1:00 a.m. in the morning. Does not radiate. It is not worse with light or sound. Is not associated with nausea vomiting. There is no clear relieving or exacerbating features. He has never had headaches like this before. He feels like he has a lot of pressure in his face including the frontal area as well as the maxillary area. Related Data Home Medications Medication Instructions Recorded Confirmed amoxicillin 500 mg capsule 500 mg PO TID 04/14/23 04/14/23 cholecalciferol (vitamin D3) 25 25 mcg PO DAILY 04/14/23 04/14/23 mcg (1,000 unit) tablet metoprolol succinate 25 mg 25 mg PO DAILY 04/14/23 04/14/23 tablet,extended release 24 hr omeprazole 40 mg capsule,delayed 40 mg PO DAILY 04/14/23 04/14/23 release prednisone 20 mg tablet 20 mg PO DAILY 04/14/23 04/14/23 Previous Rx's Medication Instructions Recorded amlodipine 2.5 mg tablet 5 mg PO DAILY 90 days #180 tabs 12/21/22 escitalopram oxalate 20 mg tablet 20 mg PO DAILY 30 days #30 tabs 04/20/23 oxycodone-acetaminophen 5 mg-325 1 tab PO BID 30 days #60 tabs 04/20/23 mg tablet zmhesixdwz-pqhsxqrwfsdky-[id number] 1 cap PO Q8H PRN pain #5 caps 04/25/23 50 mg-300 mg-40 mg capsule (Fioricet) Allergies Allergy/AdvReac Type Severity Reaction Status Date / Time Xoejmnk-AKV-FdC Reductase AdvReac Intermediate Joint and Verified 04/25/23 04:54 Inhibitor muscle pain Review of Systems Review of Systems: CONSTITUTIONAL: Denies weight loss, fever and chills. HEENT: Denies changes in vision and hearing. RESPIRATORY: Denies SOB and cough. CV: Denies palpitations no CP. GI: Denies abdominal pain, nausea, vomiting and diarrhea. : Denies dysuria and urinary frequency. MSK: Denies myalgia and joint pain. SKIN: Denies rash and pruritus. NEUROLOGICAL: + headache - syncope. PSYCHIATRIC: Denies recent changes in mood. Denies anxiety and depression. All other ROS are negative unless in HPI PMFSH Past Medical History Medical History Achilles tendon pain Acute upper gastrointestinal bleeding Annual physical exam Anxiety Asthma Borderline high cholesterol BRBPR (bright red blood per rectum) Cough HTN (hypertension) Hypogonadism in male MDD (major depressive disorder), recurrent episode Other forms of dyspnea Pathologic rib fracture Prostate cancer Prostate cancer metastatic to bone Right shoulder pain Surgical History H/O endoscopy H/O prostatectomy Family History Family History Father Pneumonia Substance abuse Mother CAD (coronary artery disease) CHF (congestive heart failure) Brother Stomach cancer Substance abuse Sister Breast cancer Substance abuse Social History Social History Household Members: Friend(s) Housing: House Do you presently have visiting nurse or other home services: No Alcohol intake: never Patient Tobacco Use Status: Never used Tobacco Years Smoked: 40 yrs e-Cigarette/Vaping Use: Never Used Second Hand Smoke Exposure: No Substance Use Type: Marijuana Advance Directives: No Advance Directives Information Provided: Yes service: No Current occupational status: unemployed Current occupation: [employer] Cognitive needs: No Hearing needs: No Vision needs: No (Pt went to an eye doctor about 4 years ago. ) Physical Exam ED Vital Signs: Vital Signs - 24 hr 04/25/23 04:54 Temperature 97.7 F Pulse Rate 56 Respiratory Rate 18 Blood Pressure 164/58 H Pulse Oximetry 96 Oxygen Delivery Method Room Air BMI result Body Mass Index 21.3 GEN: Well developed, no acute distress, alert, oriented HEENT: Normocephalic, atraumatic, normal external ears, nose appears normal, no oropharyngeal edema or exudates, tenderness over the frontal maxillary sinus area Eyes: Normal to appearance Neck: Supple, no lymphadenopathy Respiratory: Talks in complete sentences, no respiratory distress, clear to auscultation bilaterally Cardiovascular: Regular rate and rhythm, no murmurs rubs or gallops Abdomen: Soft, nontender, nondistended, no guarding, no rebound Back: No CVA tenderness Extremities: No clubbing cyanosis or edema Neurologic: No focal neurologic deficits, cranial nerves 2-12 intact, strength is 5/5 bilaterally Skin: No rash Course Course Course Narrative: It is 618 this morning. That workup is complete. CT scan of the head did not identify any mass effect. There is no evidence of sinusitis. His headache has moderated. He is certainly comfort at that there are no acute findings. My plan will be to discharge the patient. I will place a prescription for Fioricet at his pharmacy. He has follow-up with his primary care provider on Wednesday. Medications Administered Discontinued Medications Generic Name Dose Route Start Last Admin Trade Name Freq PRN Reason Stop Dose Admin Acetaminophen 975 mg 04/25/23 05:02 04/25/23 05:20 Acetaminophen 325 Mg Tablet PO 04/25/23 05:03 975 mg ONCE ONE Administration Dexamethasone Sodium Phosphate 10 mg 04/25/23 05:02 04/25/23 05:30 Dexamethasone Sod Phosphate 10 Mg/Ml Vial IVPUSH 04/25/23 05:03 10 mg ONCE ONE Administration Ketorolac Tromethamine 15 mg 04/25/23 05:02 04/25/23 05:29 Ketorolac Tromethamine 15 Mg/Ml Vial IVPUSH 04/25/23 05:03 15 mg ONCE ONE Administration Metoclopramide HCl 10 mg 04/25/23 05:02 04/25/23 05:30 Metoclopramide Hcl 10 Mg/2 Ml Vial IVPUSH 04/25/23 05:03 10 mg ONCE ONE Administration Medical Decision Making Medical Decision Making [facility] Narrative: 60-year-old male presents with acute severe frontal headache. Differential diagnosis includes sinus headache, tension headache, migraine headache cluster headache. Plan will be to obtain a CT scan of the head especially given his history of prostate cancer. Patient has no focal neurologic deficits. There has been no trauma. Doubt subdural or epidural hematoma. Doubt subarachnoid hemorrhage. Doubt meningitis as he has no fevers or neck stiffness or meningeal findings. Differential Diagnosis Differential Diagnoses: The differential diagnosis associated with the presentation includes (see above) Admission/Observation Consideration of admission/observation: Escalation of care including admission/observation considered Independent Interpretation I performed an independent interpretation of an: CT Scan (Head: No acute findings) Radiology Impression Discussion of test interpretation with radiology: I have reviewed the radiologist's reading. Radiologist Impression: CT/CT head/brain wo IV con IMPRESSION: No acute intracranial pathology. ? Dictated By: Bora Maldonado MD Signed By: <Electronically signed by Bora Maldonado MD in OV> 04/25/23 0556 Prescription Management I considered prescription management with: Pain Medication Discharge Plan Discharge Clinical Impression: Headache Patient Disposition: Home, Self-Care Instructions: Acute Headache (DC) Prescriptions: New urhdzrgiox-ympfshdorgkmd-djxc [Fioricet] 50-300-40 mg capsule 1 cap PO Q8H PRN (Reason: pain) Qty: 5 0RF No Action amlodipine 2.5 mg tablet 5 mg PO DAILY 90 Days Qty: 180 3RF oxycodone-acetaminophen 5-325 mg tablet 1 tab PO BID 30 Days Qty: 60 0RF escitalopram oxalate 20 mg tablet 20 mg PO DAILY 30 Days Qty: 30 2RF prednisone 20 mg tablet 20 mg PO DAILY omeprazole 40 mg capsule,delayed release(DR/EC) 40 mg PO DAILY amoxicillin 500 mg capsule 500 mg PO TID metoprolol succinate 25 mg tablet extended release 24 hr 25 mg PO DAILY cholecalciferol (vitamin D3) 25 mcg (1,000 unit) tablet 25 mcg PO DAILY Referrals: Physician,Michelle J [Primary Care Provider] - (Dr. Tripp)
[2023-04-25] MEDS: Acetaminophen 325 MG TABLET 975 MG PO (05:20)
[2023-04-25] MEDS: Ketorolac Tromethamine 15 MG/ML VIAL IVPUSH (05:29)
[2023-04-25] MEDS: Metoclopramide HCl 10 MG/2 ML VIAL IVPUSH (05:30)
[2023-04-25] MEDS: dexAMETHasone sod phosphate 10 MG/ML VIAL IVPUSH (05:30)
[2023-04-25 06:54] VITALS: BP 152/64; PULSE 51; RESP 20; TEMP 36.6; O2SAT 98
== END 2023-04-25 06:55 | disposition home or self-care (01) ==
PROVIDERS: Emergency Provider Emergency Medicine
DX: R51.9 Headache, unspecified (principal); E78.00 Pure hypercholesterolemia, unspecified; I10 Essential (primary) hypertension; C61 Malignant neoplasm of prostate; C79.51 Secondary malignant neoplasm of bone; C79.2 Secondary malignant neoplasm of skin; Z79.899 Other long term (current) drug therapy
CPT/HCPCS: 70450; 96374; 96375; 99284; J1100; J1885; J2765

== ENCOUNTER 2023-04-27 15:15 | Outpatient (AMB) | payer MEDICARE, MEDICAID, SELFPAY ==
[2023-04-27 15:18] VITALS: BP 122/76; PULSE 70; O2SAT 98; BMI 22.3
--- NOTE | 2023-04-27 15:18 | MHC.PC.OV ---
Vital Signs 04/27/23 15:18 Height 6 ft 3 in Weight 178 lb 2 oz BMI 22.3 BP 122/76 Blood Pressure Location Lt brachial Position Sitting Pulse 70 Pulse Source Pulse Oximeter Pulse Oximetry (%) 98 Oxygen Delivery Method Room Air Intake Visit Reasons: 3mth f/u Editor At Large Required: No Accompanied by: Self / Same As Patient Allergies Tntlvlx-JPP-FbQ Reductase Inhibitor Adverse Reaction (Intermediate, Verified 04/27/23 16:04) Joint and muscle pain Medication List - Last Reconciled 04/27/23 by Chirag River MD amlodipine 5 mg (2 x 2.5 mg) PO DAILY 90 days amoxicillin 500 mg PO TID pufjmonrfo-glvtolrmuyvnv-ngek 50-300-40 mg (Fioricet) 1 cap PO Q8H PRN cholecalciferol (vitamin D3) 25 mcg PO DAILY escitalopram oxalate 20 mg PO DAILY 30 days metoprolol succinate ER 25 mg PO DAILY omeprazole 40 mg PO DAILY oxycodone 10 mg PO BID PRN 10 days prednisone 20 mg PO DAILY Tobacco use date assessed: 04/27/23 Fall risk assessment: No Falls in past year Last assessed Fall Risk: 04/27/23 Dental Screening Dental Screen Date: 04/27/23 Did you have a dental visit in the last 12 months?: Yes Did you have a dental problem in the last 6 months where you did not have access to dental care?: No Was dental information given to patient?: Patient has dentist HPI 3mth f/u HPI Details Patient comes in today for his follow up visit States that he feels okay He denies any headaches or dizziness Still has pain over his right posterior/thoracic area - had Bx done there at [facility] last week; results still unavailable for review at this time Oncology thinks that his rib lesion/rib pain is likely a metastatic lesion from his prostate cancer States that he is still experiencing increased pain and although he is concerned about taking his pain meds too much, states that the Percocet 5-325 mg that he currently has do not really help with the pain much and he has to take 2 tablets at a time just to get some relief Is wondering if there is anything more effective that he can take for his pain so he does not have to take as much as he has been doing lately Denies any exertional chest pains, no increased SOB No nausea/vomiting, no abdominal pain No change in bowel habits noted States that he has been watching his diet and exercising lately and has gained some weight, which he feels are mostly increased muscle mass Had his follow up labs done a couple of weeks ago - to discuss his results [facility] Medical History (Updated 04/28/23 @ 09:21 by Chirag River MD) Achilles tendon pain Acute upper gastrointestinal bleeding Annual physical exam Anxiety Asthma Benign essential hypertension Borderline high cholesterol BRBPR (bright red blood per rectum) Cough HTN (hypertension) Hypogonadism in male MDD (major depressive disorder), recurrent episode Other forms of dyspnea Pathologic rib fracture Prostate cancer Prostate cancer metastatic to bone Pure hypercholesterolemia Right shoulder pain Surgical History H/O endoscopy H/O prostatectomy Family History Father Pneumonia Substance abuse Mother CAD (coronary artery disease) CHF (congestive heart failure) Brother Stomach cancer Substance abuse Sister Breast cancer Substance abuse Social History Household Members: Friend(s) Housing: House Do you presently have visiting nurse or other home services: No Alcohol intake: never Patient Tobacco Use Status: Never used Tobacco Years Smoked: 40 yrs e-Cigarette/Vaping Use: Never Used Second Hand Smoke Exposure: No Substance Use Type: Marijuana service: No Current occupational status: unemployed Current occupation: [employer] for himself Cognitive needs: No Hearing needs: No Vision needs: No (Pt went to an eye doctor about 4 years ago. ) Questionnaire PHQ-9 Over the last 2 weeks, how often have you been bothered by any of the following problems? 1. Little interest or pleasure in doing things: nearly every day 2. Feeling down, depressed, or hopeless: nearly every day 3. Trouble falling or staying asleep, or sleeping too much: not at all 4. Feeling tired or having little energy: not at all 5. Poor appetite or overeating: not at all 6. Feeling bad about yourself - or that you are a failure or have let yourself or your family down: not at all 7. Trouble concentrating on things, such as reading the newspaper or watching television: not at all 8. Moving or speaking so slowly that other people could have noticed. Or the opposite - being so fidgety or restless that you have been moving around a lot more than usual: not at all 9. Thoughts that you would be better off or of hurting yourself in some way: several days Total score: 7 Depression Screening Interpretation: Positive Depression Screening Follow-up: Existing condition and In treatment 28210 - PHQ-9 Billing: Yes Source: Developed by Drs. Wilfred Obando, Darshana Vaz, Chip Maya and colleagues, with an educational damion from [employer]. Thrive Questionnaire Date Thrive assessed: 04/27/23 I am a: Patient What is your living situation today?: I have a steady place to live Within the past 12 months, did the food you bought not last and you didn't have the money to get more?: Never true Within the past 12 months, did you worry whether your food would run out before you got money to buy more?: Never true Do you have trouble paying for medicines?: No Do you have trouble getting transportation to medical appointments?: No Do you have trouble paying your heating and electricity bill?: No Do you have trouble taking care of your child, family member or friend?: No Do you have trouble with day-to-day activities such as bathing, preparing meals, shopping, managing finances, etc.?: No Are you currently unemployed and looking for a job?: No Are you interested in more education?: No Please select the resources that you would like help with: None Currently or been in a relationship where the following occur: no concerns reported AUDIT C Alcohol Use Questionnaire (AUDIT-C) 1. How often do you have a drink containing alcohol?: Never 3. How often do you have six or more drinks on one occasion?: Never Total Score: 0 Score Reviewed/Action Taken: Yes GABRIELE-7 AMB Questionnaire GABRIELE-7 Date GABRIELE - 7 assessed: 04/27/23 Feeling nervous, anxious, or on edge: 3 = Nearly every day Not being able to stop or control worryin = Nearly every day Worrying too much about different things: 3 = Nearly every day Trouble relaxin = Nearly every day Being so restless that it is hard to sit still: 3 = Nearly every day Becoming easily annoyed or irritable: 3 = Nearly every day Feeling afraid as if something awful might happen: 3 = Nearly every day Total GABRIELE-7 score (0-4 normal; 5-9 mild; 10-14 moderate; 15-21 severe): 21 Source: Developed by Drs. Wilfred Obando, Darshana Vaz, Chip Maya and colleagues, with an educational damion from [employer]. GABRIELE-7 Assessment Billing GABRIELE-7 Assessment Tool: GABRIELE-7 Assessment 02063 Review of Systems Const Denies chills, Denies fatigue, Denies fever(s) and Denies headache(s) ENT Denies dysphagia, Denies dizziness, Denies otalgia, Denies headache(s), Denies neck pain, Denies odynophagia and Denies sore throat Card Denies chest pain, Denies palpitations and Denies dyspnea Resp Denies cough and Denies dyspnea GI Denies abdominal pain, Denies constipation, Denies dysphagia, Denies heartburn, Denies diarrhea, Denies nausea, Denies odynophagia and Denies vomiting Denies dysuria and Denies nocturia Musc Details: (+) increased pain over the right posterior thoracic area where he had his Bx done last week Denies neck pain Neuro Denies dizziness and Denies headache(s) Endo Denies fatigue and Denies palpitations Physical exam (Primary Care) Vital Signs: Last Vital Signs Pulse 70 04/27/23 15:18 BP 122/76 04/27/23 15:18 Pulse Ox 98 04/27/23 15:18 Oxygen Delivery Method Room Air 04/27/23 15:18 BMI result Body Mass Index 22.3 Tobacco/Smoking Status: Tobacco use Status Tobacco use date assessed 04/27/23 04/27/23 15:25 Patient Tobacco Use Status Never used Tobacco 04/27/23 15:25 e-Cigarette/Vaping Use Never Used 04/27/23 15:25 PHQ-9: PHQ-9 Score PHQ-9: Total score 7 04/27/23 16:29 Depression Screening Interpretation: Positive Depression Screening Follow-up: Existing condition and In treatment Thrive Assessment: Date of Thrive Assessment Date Thrive assessed 04/27/23 04/27/23 15:25 Currently or been in a relationship where the following occur: no concerns reported Const General: no acute distress and alert HENMT Throat: Yes posterior oropharynx normal and Yes tonsils normal (no TP congestion) Neck Neck: Yes no lymphadenopathy and Yes supple Resp Auscultation: clear to auscultation bilaterally, no rales and no wheezes Cardio Rate: regular rate Rhythm: regular rhythm Heart sounds: no murmurs GI Palpation (GI): Soft to palpation and nontender Auscultation: normal bowel sounds Back/Spine/Pelvis Other: (+) tenderness over the right thoracic paraspinal area (7th rib) - s/p Bx last week Skin Rashes: no rashes Extrem General: Yes no clubbing, cyanosis or edema Results Reviewed Results Reviewed: Laboratory Tests 04/07/23 04/14/23 04/14/23 08:50 07:36 08:32 WBC Hgb Hct Plt Count Sodium 140 Potassium 3.8 Creatinine 0.69 Estimated GFR > 60 Fasting Glucose 111 H Calcium 9.4 AST 20 ALT 23 Triglycerides 37 Cholesterol 145 LDL Cholesterol, Calc 96 HDL Cholesterol 42 TSH Ur Specific [place] 1.020 Urine Protein Negative Urine Glucose (UA) Negative Urine Blood Negative 04/14/23 04/14/23 08:32 08:32 WBC 9.0 Hgb 13.1 L Hct 39.7 L Plt Count 183 Sodium Potassium Creatinine Estimated GFR Fasting Glucose Calcium AST ALT Triglycerides Cholesterol LDL Cholesterol, Calc HDL Cholesterol TSH 0.88 Ur Specific [place] Urine Protein Urine Glucose (UA) Urine Blood Assessment and Plan Assessment & Plan (1) Pure hypercholesterolemia: Code(s): E78.00 - Pure hypercholesterolemia, unspecified Plan: Results of his labs done a couple of weeks ago reviewed and discussed with patient - advised that his cholesterol levels have improved significantly from previous Reinforced low cholesterol diet; patient has declined recommendations to start taking cholesterol-lowering Rx previously and is confident that he can get his numbers improved without Rx and he is currently very happy that he is able to do so States that he has also been exercising and walking regularly now and plans to continue with his current diet and exercise regimen (2) Benign essential hypertension: Code(s): I10 - Essential (primary) hypertension Plan: Reinforced low sodium diet - goal is systolic BP of at least 120 to 130 mm or less Continue Amlodipine 5 mg QD and Metoprolol ER 25 mg QD (although Metoprolol ER was prescribed more to keep his HR in check) (3) GABRIELE (generalized anxiety disorder): Code(s): F41.1 - Generalized anxiety disorder Plan: Continue Escitalopram 20 mg QD States that he has not had to take his Lorazepam 0.5 mg Q HS PRN lately and prefers not to take it if he can avoid it as he remains concerned about its habit-forming potential Is also on Metoprolol ER 25 mg QD to help control his HR and keep him from experiencing increased palpitations from his anxiety (4) GERD (gastroesophageal reflux disease): Code(s): K21.9 - Gastro-esophageal reflux disease without esophagitis Qualifiers: Esophagitis presence: esophagitis presence not specified Qualified Code(s): K21.9 - Gastro-esophageal reflux disease without esophagitis Plan: Continue Omeprazole 40 mg QD Follow up with GI as scheduled (5) 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 last week - results are currently not available for review Will try switching his Oxycodone 5-325 mg to Oxycodone 10 mg BID PRN for increased pain Plan Follow up with PCP as scheduled next month Medications: New oxycodone Partial Fill upon patient request. 10 mg PO BID 10 days PRN 20 tabs 0RF severe pain Discontinued omeprazole 20 mg PO DAILY 90 days 90 caps 1RF K21.9 - Gastro-esophageal reflux disease without esophagitis oxycodone-acetaminophen 5-325 mg Discontinued Reason: Duplicate 1 tab PO BID 30 days 60 tabs 0RF C61 - Malignant neoplasm of prostate, C79.51 - Secondary malignant neoplasm of bone Coding Level of Care Code Est Pt Level 4 (62781) Diagnoses Pure hypercholesterolemia E78.00 Benign essential hypertension I10 GABRIELE (generalized anxiety disorder) F41.1 GERD (gastroesophageal reflux disease) K21.9 Esophagitis presence: esophagitis presence not specified 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
== END 2023-04-27 16:07 | disposition home or self-care (01) ==
PROVIDERS: PCP Physician Assistant; Visit Provider Internal Medicine
DX: I10 Essential (primary) hypertension (principal); K21.9 Gastro-esophageal reflux disease without esophagitis; C79.51 Secondary malignant neoplasm of bone; C80.1 Malignant (primary) neoplasm, unspecified; E78.00 Pure hypercholesterolemia, unspecified; F41.1 Generalized anxiety disorder
CPT/HCPCS: 99214

== ENCOUNTER 2023-05-06 08:04 | Outpatient (REF) | payer MEDICARE, MEDICAID, SELFPAY ==
[2023-05-06 11:57] LABS: MANUAL DIFF FLAG NO
[2023-05-06 12:21] LABS: Basophils Percent Auto 0.5 % (0-2); Eosinophils Absolute Auto 0.2 X10*3/uL (0.0-0.4); Eosinophils Percent Auto 3.2 % (0-4); Hematocrit 37.6 % (42.0-52.0); Hemoglobin 12.3 g/dl (14.0-18.0); Imm Gran Abs Auto 0.01 X10*3/uL (0.00-0.03); Imm Gran Pct Auto 0.2 % (0.0-0.4); Lymphocytes Absolute Auto 1.6 X10*3/uL (1.2-4.9); Lymphocytes Percent Auto 24.9 % (20-40); Mean Corpuscular HGB Conc 32.7 g/dl (31.0-36.0); Mean Corpuscular Hemoglobin 31.1 pg (27.0-33.0); Mean Corpuscular Volume 94.9 fL (80.0-98.0); Mean Platelet Volume 10.5 fL (9.4-12.4); Monocytes Absolute Auto 0.6 X10*3/uL (0.1-1.2); Monocytes Percent Auto 9.1 % (2-11); Neutrophils Absolute Auto 3.9 x10*3/uL (2.0-8.3); Neutrophils Percent Auto 62.1 % (45-73); Platelet Count 215 X10*3/uL (160-400); Red Blood Count 3.96 X10*6/uL (4.60-5.80); Red Cell Distribution Width 14.6 % (11.0-16.0); White Blood Count 6.2 X10*3/uL (4.8-10.8)
[2023-05-06 12:30] LABS: Estimated Average Glucose 108 mg/dL; Hemoglobin A1c % 5.4 % (<6.0)
[2023-05-06 12:33] LABS: Alanine Aminotransferase 21 U/L (0-40); Albumin Level 3.9 g/dL (3.5-5.0); Alkaline Phosphatase 102 U/L (39-117); Anion Gap 10 (12-20); Aspartate Amino Transferase 18 U/L (5-37); Bilirubin Total 0.4 mg/dL (0.0-1.0); Blood Urea Nitrogen 22 mg/dL (9-16); Calcium 9.3 mg/dL (8.4-10.2); Carbon Dioxide 27 mmol/L (22-29); Chloride 108 mmol/L (96-108); Cholesterol 171 mg/dL (<200); Estimated Glomerular Filt Rate > 60; Glucose Fasting 102 mg/dL (60-99); HDL Cholesterol 38 mg/dL (>40); LDL Cholesterol Calculated 119 mg/dL (<100); Sodium 141 mmol/L (135-145); Total Protein 6.8 g/dL (6.5-8.0); Triglycerides 70 mg/dL (<150)
[2023-05-06 12:35] LABS: Prostate Specific Antigen 0.63 ng/mL (<0.05-4.0)
[2023-05-06 12:48] LABS: Vitamin D 25-OH Total 44.8 ng/mL (>30)
[2023-05-06 13:07] LABS: Erythrocyte Sedimentation Rate 38 MM/HR (0-15)
[2023-05-11 11:44] LABS: Testosterone, Total 428 ng/dL (250-1100)
== END 2023-05-06 08:05 | disposition home or self-care (01) ==
LOC: HO.10HDL 08:04
PROVIDERS: Urology; PCP Physician Assistant; Visit Provider Internal Medicine Medical Oncology
DX: Z12.5 Encounter for screening for malignant neoplasm of prostate (principal); C61 Malignant neoplasm of prostate; C79.51 Secondary malignant neoplasm of bone; E66.3 Overweight; R73.9 Hyperglycemia, unspecified; E55.9 Vitamin D deficiency, unspecified
CPT/HCPCS: 36415; 80053; 80061; 82306; 83036; 84153; 84403; 85025; 85652

== ENCOUNTER 2023-05-10 10:55 | Outpatient (AMB) | payer MEDICARE, MEDICAID, SELFPAY ==
[2023-05-10 10:56] VITALS: BP 140/65; PULSE 59; BMI 22.2
--- NOTE | 2023-05-10 10:56 | A.OFFVIS_ITS ---
Intake Vital Signs 05/10/23 10:56 Height 6 ft 3 in Weight 178 lb BMI 22.2 BP 140/65 H Blood Pressure Location Rt brachial Position Sitting Pulse 59 Intake Visit Reasons: RUQ pain, chilaiditis syndrome Intake Note: Patient here for RUQ pain for a few months. C/o constipation and diarrhea. 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 Patient thought today's appt was for colonoscopy. Patient requesting copy of note be sent to Dr. Zhang in [place]. 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 Patient self has no specific upper abdominal GI issues or complaints. Effect he has history of chronic diarrhea. Last colonoscopy was approximately 10 years ago. Patient has a plethora of medical problems including metastatic prostate cancer for which he is receiving radiation therapy to his ribs for symptomatic metastatic disease. Chart was reviewed patient evaluated [facility] Medical History Pure hypercholesterolemia Benign essential hypertension BRBPR (bright red blood per rectum) Pathologic rib fracture Acute upper gastrointestinal bleeding Annual physical exam Cough Right shoulder pain Prostate cancer Borderline high cholesterol Other forms of dyspnea Achilles tendon pain Hypogonadism in male HTN (hypertension) MDD (major depressive disorder), recurrent episode Anxiety Asthma Prostate cancer metastatic to bone Surgical History H/O endoscopy H/O prostatectomy Family History Father Pneumonia Substance abuse Mother CAD (coronary artery disease) CHF (congestive heart failure) Brother Stomach cancer Substance abuse Sister Breast cancer Substance abuse Social History Household Members: Friend(s) Housing: House Do you presently have visiting nurse or other home services: No Alcohol intake: never Patient Tobacco Use Status: Never used Tobacco Years Smoked: 40 yrs e-Cigarette/Vaping Use: Never Used Second Hand Smoke Exposure: No Substance Use Type: Marijuana service: No Current occupational status: unemployed Current occupation: [employer] for himself Cognitive needs: No Hearing needs: No Vision needs: No (Pt went to an eye doctor about 4 years ago. ) Physical Exam Vital Signs: Last Vital Signs Pulse 59 05/10/23 10:56 BP 140/65 H 05/10/23 10:56 BMI result Body Mass Index 22.2 Chest Other: Chest breath sounds bilaterally, right costal tenderness in area of metastatic disease for which she is receiving radiation therapy. GI Other: Abdomen soft, benign. No evidence of any guarding, rebound, or rigidity. Robotic prostatectomy scars well healed. Assessment & Plan Assessment & Plan (1) Nausea: Code(s): R11.0 - Nausea Plan At the present time, the incidental finding on a CT scan of his chest has no clinical consequence with the patient. My recommendation is continue conservative therapy. Patient is due for colonoscopy and we will arrange for him for an appointment with Dr. Manley, his mattress specialist. In the interim, the patient and his significant other instructed that should he have any significant GI issues or complaints she contact the office for follow- up or go to the ER. Coding Level of Care Code New Pt Level 4 (80462) Diagnoses Nausea R11.0
== END 2023-05-10 11:38 | disposition home or self-care (01) ==
PROVIDERS: PCP Physician Assistant; Visit Provider Surgery
DX: R11.0 Nausea (principal)
CPT/HCPCS: 99204

== ENCOUNTER → 2023-05-10 10:55 | Outpatient (BNVA) | payer MEDICARE, MEDICAID, SELFPAY | PROVIDERS: PCP Physician Assistant; Visit Provider Surgery | DX: R11.0 Nausea (principal); R10.11 Right upper quadrant pain | CPT/HCPCS: 99202 ==

== ENCOUNTER 2023-05-27 09:18 | Outpatient (AMB) | payer MEDICARE, MEDICAID, SELFPAY ==
--- NOTE | 2023-05-27 09:29 | MHC.PC.OV ---
Vital Signs 05/27/23 09:35 Height 6 ft 3 in Weight 190 lb 4 oz BMI 23.8 BP 110/54 L Blood Pressure Location Lt brachial Position Sitting Respiration 17 Pulse 65 Pulse Source Pulse Oximeter Pulse Oximetry (%) 97 Oxygen Delivery Method Room Air Intake Visit Reasons: 3mth f/u Intake Note: Pt is here for 3 months routine f/u. Appliances Sample Maker Required: No Accompanied by: Self / Same As Patient Allergies Keudbvh-CCY-FxB Reductase Inhibitor Adverse Reaction (Intermediate, Verified 05/27/23 09:49) Joint and muscle pain Medication List - Last Reconciled 05/27/23 by Gadiel Tripp PA-C amlodipine 5 mg (2 x 2.5 mg) PO DAILY 90 days krdhfjseuy-fnxnsnguwodrf-bymg 50-300-40 mg (Fioricet) 1 cap PO Q8H PRN cholecalciferol (vitamin D3) 25 mcg PO DAILY escitalopram oxalate 20 mg PO DAILY 30 days omeprazole 40 mg PO DAILY oxycodone 10 mg PO BID 28 days promethazine 12.5 mg PO TID PRN 7 days Tobacco use date assessed: 04/27/23 Fall risk assessment: No Falls in past year Last assessed Fall Risk: 05/27/23 Dental Screening Dental Screen Date: 05/27/23 Did you have a dental visit in the last 12 months?: Yes Did you have a dental problem in the last 6 months where you did not have access to dental care?: No Was dental information given to patient?: Patient has dentist HPI 3mth f/u HPI Details Patient is 68-year-old male here today for follow-up visit. Patient has a past medical history significant for hyperlipidemia, prostate cancer with Mets to rib, hypertension and major depressive disorder. .. Hypertension:? Blood pressure today in office acceptable.? He continues on low-dose amlodipine. ? ? Has been followed Cardiology . Recently underwent Renzo protocol cardiac stress test though was stopped due to elevated blood pressure, no no evidence of EEG ischemia ? He does not monitor his blood pressures at home He does report he has been walking 4-5 times per week and has managed to lose weight since last visit. .. Major depressive disorder: Did have a brief episode worsening depression secondary to hearing the news that his prostate cancer metastasized. He was started on Lexapro and uptitrated to 20 mg. He is feeling much better and has had better appetite. Noted weight gain. He would like to reduce his dose to Lexapro 10 mg as a maintenance dose. .. asthma: Asthma has been well controlled.? Only seldomly needs to use his albuterol inhaler. ?during allergy season his asthma worsens at times. .. Prostate cancer with metastasis to bone:? Continues to oncologist and urologist. Most recent PSA were slightly elevated. PET scan showed metastasize lesion on a single rib. He has followed up with oncologist whom has has finished his sessions of radiation. He reports he is feeling better having less pain ?.? Also uses low-dose oxycodone for his cancer related pain. Now office testosterone therapy Most recent bone scan showing no recurrent malignancy though did have some uptake in the right 8th rib .. Borderline high cholesterol:? Continues to work on lifestyle to reduce his cholesterol.? Has been walking on a daily basis and has managed to lose a few lb ? [facility] Medical History Pure hypercholesterolemia Benign essential hypertension BRBPR (bright red blood per rectum) Pathologic rib fracture Acute upper gastrointestinal bleeding Annual physical exam Cough Right shoulder pain Prostate cancer Borderline high cholesterol Other forms of dyspnea Achilles tendon pain Hypogonadism in male HTN (hypertension) MDD (major depressive disorder), recurrent episode Anxiety Asthma Prostate cancer metastatic to bone Surgical History H/O endoscopy H/O prostatectomy Family History Father Pneumonia Substance abuse Mother CAD (coronary artery disease) CHF (congestive heart failure) Brother Stomach cancer Substance abuse Sister Breast cancer Substance abuse Social History Household Members: Friend(s) Housing: House Do you presently have visiting nurse or other home services: No Alcohol intake: never Patient Tobacco Use Status: Never used Tobacco Years Smoked: 40 yrs e-Cigarette/Vaping Use: Never Used Second Hand Smoke Exposure: No Substance Use Type: Marijuana service: No Current occupational status: unemployed Current occupation: [employer] for [employer] Cognitive needs: No Hearing needs: No Vision needs: No (Pt went to an eye doctor about 4 years ago. ) Questionnaire Thrive Questionnaire Date Thrive assessed: 04/27/23 GABRIELE-7 AMB Questionnaire GABRIELE-7 Date GABRIELE - 7 assessed: 04/27/23 Source: Developed by Drs. Wilfred Obando, Darshana Vaz, Chip Maya and colleagues, with an educational damion from [employer]. Review of Systems Const Denies headache(s) Eyes Denies loss of vision ENT Denies vertigo, Denies dizziness, Denies headache(s) and Denies sore throat Card Denies chest pain, Denies leg edema and Denies lightheadedness Resp Denies cough, Denies hemoptysis and Denies wheezing GI Denies abdominal pain, Denies melena, Denies constipation, Denies diarrhea and Denies vomiting Denies dysuria, Denies urinary frequency and Denies urinary urgency Musc Denies arthralgias, Denies joint swelling, Denies numbness and Denies tingling Neuro Denies Abnormal speech present, Denies behavioral changes, Denies vertigo, Denies dizziness, Denies headache(s), Denies loss of vision, Denies memory loss, Denies numbness and Denies tingling Psych Denies anxiety, Denies behavioral changes, Denies depression, Denies memory loss and Denies panic attacks Yasir/Lymph Denies easy bleeding and Denies easy bruising Aller/Immun Denies wheezing Physical exam (Primary Care) Vital Signs: Last Vital Signs Pulse 65 05/27/23 09:35 Resp 17 05/27/23 09:35 BP 110/54 L 05/27/23 09:35 Pulse Ox 97 05/27/23 09:35 Oxygen Delivery Method Room Air 05/27/23 09:35 BMI result Body Mass Index 23.8 Tobacco/Smoking Status: Tobacco use Status Tobacco use date assessed 04/27/23 05/27/23 09:29 Patient Tobacco Use Status Never used Tobacco 05/27/23 09:29 e-Cigarette/Vaping Use Never Used 05/27/23 09:29 Thrive Assessment: Date of Thrive Assessment Date Thrive assessed 04/27/23 05/27/23 09:29 Const General: healthy appearing, no acute distress, alert and awake Nutritional Appearance: well nourished Orientation/consciousness: oriented to person, oriented to place and oriented to time HENMT Ears: TM's normal bilaterally General nose exam: Normal nasal mucous membranes and turbinates present Eyes Conjunctivae: conjunctivae normal Sclerae: sclerae normal Pupils: Equal, round and reactive pupils present Neck Neck: Yes no lymphadenopathy and Yes no JVD Thyroid: Thyroid normal Carotids: no bruits Resp Effort & Inspection: normal respiratory effort and not tachypneic Auscultation: no crackles, no rales, no rhonchi and no wheezes Cardio Rate: regular rate Rhythm: regular rhythm Heart sounds: no murmurs and normal S1 and S2 GI Palpation (GI): Soft to palpation, nontender, no hepatomegaly and no splenomegaly Auscultation: normal bowel sounds Skin General skin exam: no rashes or lesions noted and dry skin Neuro General: oriented to person, oriented to place and oriented to time Cranial nerves: Yes Equal, round and reactive pupils present Speech: No Abnormal speech present Gait exam (Neuro): Normal gait present Motor exam (neuro): no tremor noted Extrem Right upper extremity: full ROM Left upper extremity: full ROM Right lower extremity: full ROM; no edema Left lower extremity: full ROM; no edema Psych Mental Status: mental status grossly normal Speech and movement: Normal speech and movement present Affect: normal affect Attitude: cooperative Thought process: Normal thought process present Assessment and Plan Assessment & Plan (1) Hyperlipidemia: Code(s): E78.5 - Hyperlipidemia, unspecified Qualifiers: Hyperlipidemia type: mixed hyperlipidemia Qualified Code(s): E78.2 - Mixed hyperlipidemia Plan: Patient's most recent lipid panel showing acceptable total cholesterol and LDL. He would like to continue lifestyle modifications with goal LDL to be below 130 (2) HTN (hypertension): Code(s): I10 - Essential (primary) hypertension Qualifiers: Hypertension type: essential hypertension Qualified Code(s): I10 - Essential (primary) hypertension Plan: Patient's blood pressure acceptable today in office. Will continue 5 mg amlodpine with goal blood pressure to be below 140/90 (3) Prostate cancer metastatic to bone: Comment: Intermittent hormone therapy Code(s): C61 - Malignant neoplasm of prostate; C79.51 - Secondary malignant neoplasm of bone Plan: Patient continues to follow Oncology and Urology. Most recent PSA 0.45. Bone scan showed METS to 8th rib. Recently underwent radiation to his ribs. Pain has been better and will like to reduce his oxycodone to 10 mg once a day p.r.n.. (4) MDD (major depressive disorder), recurrent episode: Code(s): F33.9 - Major depressive disorder, recurrent, unspecified Qualifiers: Major depression episode severity: moderate Qualified Code(s): F33.1 - Major depressive disorder, recurrent, moderate Plan: Had recent increase in his depression and was restarted on SSRI therapy. Has been started on Lexapro 20 mg in his depression has been much better. He would like to reduce his dose down to 10 mg daily, and will do so at next refill. Orders: Orders Complete Blood Count no Diff Today I10 - Essential (primary) hypertension IRON PROFILE Today D50.9 - Iron deficiency anemia, unspecified, I10 - Essential (primary) hypertension Coding Level of Care Code Est Pt Level 4 (51823) Diagnoses Mixed hyperlipidemia E78.2 Hyperlipidemia type: mixed hyperlipidemia Essential hypertension I10 Hypertension type: essential hypertension Prostate cancer metastatic to bone C61; C79.51 Moderate episode of recurrent major depressive disorder F33.1 Major depression episode severity: moderate
[2023-05-27 09:35] VITALS: BP 110/54; PULSE 65; RESP 17; O2SAT 97; BMI 23.8
== END 2023-05-27 10:07 | disposition home or self-care (01) ==
PROVIDERS: PCP Physician Assistant; Visit Provider Physician Assistant
DX: I10 Essential (primary) hypertension (principal); C61 Malignant neoplasm of prostate; C79.51 Secondary malignant neoplasm of bone; F33.1 Major depressive disorder, recurrent, moderate; E78.2 Mixed hyperlipidemia
CPT/HCPCS: 99214

== ENCOUNTER 2023-06-01 10:53 | Outpatient (REF) | payer MEDICARE, MEDICAID, SELFPAY ==
[2023-06-01 14:06] LABS: Prostate Specific Antigen 0.56 ng/mL (<0.05-4.0)
[2023-06-06 14:08] LABS: Testosterone, Total 547 ng/dL (250-1100)
== END 2023-06-01 10:54 | disposition home or self-care (01) ==
LOC: HO.10HDL 10:53
PROVIDERS: Visit Provider Urology
DX: C79.51 Secondary malignant neoplasm of bone (principal); C61 Malignant neoplasm of prostate; Z12.5 Encounter for screening for malignant neoplasm of prostate
CPT/HCPCS: 36415; 84153; 84403

== ENCOUNTER 2023-06-09 09:45 | Outpatient (AMB) | payer MEDICARE, MEDICAID, SELFPAY ==
--- NOTE | 2023-06-09 09:45 | MHC.OFFVIS ---
Intake Intake Visit Reasons: 4M PSA/Testosterone(set) Intake Note: Patient is Present for Telephone Follow Up labs Urology Med: None Antibiotic Allergy: None Blood Thinner: None Pharamcy: [facility] Allergies Gpligfo-EIF-IlX Reductase Inhibitor Adverse Reaction (Intermediate, Verified 06/09/23 09:46) Joint and muscle pain Medication List - Last Reconciled 06/09/23 by Chano Chen MD amlodipine 5 mg (2 x 2.5 mg) PO DAILY 90 days jsuqkcogwh-fpzwkgkabobon-wunn 50-300-40 mg (Fioricet) 1 cap PO Q8H PRN cholecalciferol (vitamin D3) 25 mcg PO DAILY escitalopram oxalate 20 mg PO DAILY 30 days omeprazole 40 mg PO DAILY oxycodone 10 mg PO BID 28 days promethazine 12.5 mg PO TID PRN 7 days HPI HPI Comments History of Present Illness Details Mr Briceno is a very pleasant male. He is a patient of Dr. Tripp. Copies of notes to his oncologist Dr Maynard. He is seen for the following urologic condition - prostate cancer - hypogonadism Telemedicine Evaluation 15 min Consultation [facility] Patrick Video attempted Plan for month PET-CT with PSA 04/21 right posterior 8th rib metastatic lesion - external beam radiation with Fu[facility] Forbes - review with Dr. Liudmila GaliciaLoy - her conclusion was indolent prostate cancer with solitary bony met in setting of low PSA - recommendation was to repeat PSMA imaging every 4 months since following with PSA unreliable - would not initiate hormone therapy at this point given poor prior response Labs 03/20 P 0.21, T 448, 09/21 T 476 P 0.3, 12/20 T 481 P 0.5, 06/21 0.56 T 547 Prostate cancer: 2006 initial therapy prostatectomy grade 3+4, rising PSA 2007 with external beam radiation and subsequent intermittent hormones Prostate cancer was diagnosed December 2005 Dr Costa. Diagnosis was reached by needle biopsy. The [employer] grade is 3+4 = 7, at surgery - tertiary 5. Extraprostatic extension at base of gland. Seminal vesicles were involved. Left micrometastatic focus of prostatic adenocarcinoma in 2/5 lymph nodes. - ? of rib involvement 2011. TNM Classification of Malignant Tumours (TNM) T2a. The [place] (NCCN) risk category is Intermediate Risk (PSA 10-20, Gl 7, T2). Initial therapy included Primary treatment 2005 , Prostatectomy (RRP/Robotic) , Additional treatment 2007 , External Beam Radiation , Additional treatment 2009 , Hormonal Blockade - Continuous, with, GnRH agonists (Lupron) and , Antiandrogen (nilandron) , Additional treatment 2015 , Hormonal Blockade -intermittent Last 01/12 , Additional treatment Prolia 04/16. Recent labs included a PSA (prostate-specific antigen) October 2015 undetectable Jun 2016 , a PSA (prostate-specific antigen), < 0.1, a testosterone, < 20 ng/dL October 2016 , a PSA (prostate-specific antigen), , < 0.1, T Mar , a PSA (prostate-specific antigen), < 0.1 10/17 , a PSA (prostate-specific antigen), < 0.1, T 167, 04/16 , a PSA (prostate-specific antigen), < 0.1, 05/17 , a PSA (prostate-specific antigen), < 0.1 05/18 PSA < 0.1, T 465 12/17 , PSA 0.05, Hct 50.3, T not done, 04/18 PSA 0.12, T 1000 - 10/20 PSA 0.12 T 2231, 06/19 0.15 458, 11/18 0.19 479 Recent imaging included a bone scan reported as negative , a DEXA scan 2013 osteopenia , a DEXA scan 2015 , showing osteopenia/osteoporosis , Plain x-ray 12/14 - no rib fracture 04/15 , a bone scan - ? compression fracture - MRI completed 12/17 DEXA - Normal levels - 06/18 BONE SCAN, NORMAL DEGENERATIVE CHANGE, 06/19 bone scan degenerative change no metastatic disease - 01/19 DEXA - osteopenia - 01/19 bone scan degenerative changes - ?moderate to significant focal activity left anterior 5th costochondral junction and right posterior 8th rib - 04/21 CT right medial posterior eighth rib which in this demonstrates destructive lesion which also extends to the right transverse process of T8 slightly increased compared to prior imaging. Therapeutic plan: Continue with PSA monitoring [facility] Medical History Pure hypercholesterolemia Benign essential hypertension BRBPR (bright red blood per rectum) Pathologic rib fracture Acute upper gastrointestinal bleeding Annual physical exam Cough Right shoulder pain Prostate cancer Borderline high cholesterol Other forms of dyspnea Achilles tendon pain Hypogonadism in male HTN (hypertension) MDD (major depressive disorder), recurrent episode Anxiety Asthma Prostate cancer metastatic to bone Surgical History H/O endoscopy H/O prostatectomy Family History Father Pneumonia Substance abuse Mother CAD (coronary artery disease) CHF (congestive heart failure) Brother Stomach cancer Substance abuse Sister Breast cancer Substance abuse Social History Household Members: Friend(s) Housing: House Do you presently have visiting nurse or other home services: No Alcohol intake: never Patient Tobacco Use Status: Never used Tobacco Years Smoked: 40 yrs e-Cigarette/Vaping Use: Never Used Second Hand Smoke Exposure: No Substance Use Type: Marijuana service: No Current occupational status: unemployed Current occupation: [employer] for [employer] Cognitive needs: No Hearing needs: No Vision needs: No (Pt went to an eye doctor about 4 years ago. ) Review of Systems Const All systems reviewed & are unremarkable except as noted in HPI and below Reports no additional complaints Resp Reports no additional complaints GI Reports no additional complaints Reports as per HPI Musc Reports no additional complaints Physical Exam Telemedicine evaluation Appropriate responses Regular breathing rate and rhythm HEENT Head: Yes normal to inspection Ears: hearing grossly normal bilaterally Eyes General: appearance normal, both eyes and all related structures Neck Neck: Yes normal visual inspection Chest Chest palpation & inspection: normal inspection of the chest Resp Effort & Inspection: normal respiratory effort and able to speak in complete sentences Assessment & Plan Assessment & Plan (1) Prostate cancer metastatic to bone: Comment: Intermittent hormone therapy Code(s): C61 - Malignant neoplasm of prostate; C79.51 - Secondary malignant neoplasm of bone Plan Four month follow-up imaging and labs Orders: Orders Blood Urea Nitrogen 4 Months C61 - Malignant neoplasm of prostate, C79.51 - Secondary malignant neoplasm of bone Prostate Specific Antigen 4 Months C61 - Malignant neoplasm of prostate, C79.51 - Secondary malignant neoplasm of bone PET CT fusion skull to thigh 4 Months C61 - Malignant neoplasm of prostate, C79.51 - Secondary malignant neoplasm of bone Creatinine 4 Months C61 - Malignant neoplasm of prostate, C79.51 - Secondary malignant neoplasm of bone Patient Instructions: Imaging studies, laboratory and physical exam results were discussed and reviewed in detail. No major barriers to patient understanding were identified. An opportunity to ask questions regarding the treatment plan was provided. All questions were answered. The patient expressed understanding and agreement with the above treatment plan. The patient is aware they should contact our office by phone for worsening of their current condition or the appearance of new urologic symptoms. Compliance is encouraged with any medications and followup testing that is ordered. It is a privilege to participate in the urologic care of your patient. If you have any questions or concerns regarding treatment for the above conditions, or other urologic issues, please do not hesitate to contact me. The office telephone contact is [phone]. This note is constructed using voice recognition software. While every effort has been made to ensure accuracy lance crewmember/mlrs sergeant errors may have been included. Yours sincerely, Dr Chano Chen MD, [facility] - Urology Providers of Expert, Compassionate Care for the Genitourinary System Telehealth Telehealth Location of provider rendering services: practice address Location of patient: address on file Patient Identification confirmed using: Name, : Yes Telehealth method: video Patient verbally consented to treatment: Yes Patient verbally consented to billing insurance company: Yes Patient informed of any privacy concerns related to visit: Yes Coding Level of Care Code Tele Est Pt Level 3 (67386) Diagnoses Prostate cancer metastatic to bone C61; C79.51
== END 2023-06-09 13:50 | disposition home or self-care (01) ==
LOC: HO.HUSH 09:45
PROVIDERS: PCP Physician Assistant; Visit Provider Urology
DX: C61 Malignant neoplasm of prostate (principal); C79.51 Secondary malignant neoplasm of bone
CPT/HCPCS: 99213

== ENCOUNTER → 2023-06-09 09:45 | Outpatient (BNVA) | payer MEDICARE, MEDICAID, SELFPAY | PROVIDERS: PCP Physician Assistant; Visit Provider Urology ==

== ENCOUNTER 2023-06-17 08:43 | Outpatient (REF) | payer MEDICARE, MEDICAID, SELFPAY ==
[2023-06-17 10:44] LABS: MANUAL DIFF FLAG NO
[2023-06-17 10:55] LABS: Basophils Percent Auto 0.2 % (0-2); Eosinophils Absolute Auto 0.2 X10*3/uL (0.0-0.4); Hematocrit 39.9 % (42.0-52.0); Hemoglobin 13.1 g/dl (14.0-18.0); Imm Gran Abs Auto 0.01 X10*3/uL (0.00-0.03); Imm Gran Pct Auto 0.2 % (0.0-0.4); Lymphocytes Absolute Auto 0.8 X10*3/uL (1.2-4.9); Lymphocytes Percent Auto 20.3 % (20-40); Mean Corpuscular HGB Conc 32.8 g/dl (31.0-36.0); Mean Corpuscular Hemoglobin 31.3 pg (27.0-33.0); Mean Corpuscular Volume 95.5 fL (80.0-98.0); Monocytes Absolute Auto 0.5 X10*3/uL (0.1-1.2); Monocytes Percent Auto 12.4 % (2-11); Neutrophils Absolute Auto 2.5 x10*3/uL (2.0-8.3); Neutrophils Percent Auto 61.9 % (45-73); Platelet Count 157 X10*3/uL (160-400); Red Blood Count 4.18 X10*6/uL (4.60-5.80); Red Cell Distribution Width 14.6 % (11.0-16.0)
[2023-06-17 11:11] LABS: Alanine Aminotransferase 21 U/L (0-40); Albumin Level 3.9 g/dL (3.5-5.0); Alkaline Phosphatase 105 U/L (39-117); Anion Gap 13 (12-20); Aspartate Amino Transferase 20 U/L (5-37); Bilirubin Total 0.2 mg/dL (0.0-1.0); Blood Urea Nitrogen 17 mg/dL (9-16); Calcium 8.8 mg/dL (8.4-10.2); Carbon Dioxide 26 mmol/L (22-29); Chloride 106 mmol/L (96-108); Estimated Glomerular Filt Rate > 60; Glucose Random 123 mg/dL (60-115); Sodium 141 mmol/L (135-145)
[2023-06-17 11:18] LABS: Prostate Specific Antigen 0.57 ng/mL (<0.05-4.0)
== END 2023-06-17 08:44 | disposition home or self-care (01) ==
LOC: HO.10HDL 08:43
PROVIDERS: Visit Provider Internal Medicine Medical Oncology
DX: Z12.5 Encounter for screening for malignant neoplasm of prostate (principal); E66.3 Overweight; R73.9 Hyperglycemia, unspecified; N40.0 Benign prostatic hyperplasia without lower urinary tract symptoms
CPT/HCPCS: 36415; 80053; 84153; 85025

== ENCOUNTER 2023-08-25 11:36 | Outpatient (REF) | payer MEDICARE, MEDICAID, SELFPAY ==
[2023-08-25 13:15] LABS: MANUAL DIFF FLAG NO
[2023-08-25 14:17] LABS: Basophils Percent Auto 0.2 % (0-2); Eosinophils Absolute Auto 0.2 X10*3/uL (0.0-0.4); Hematocrit 40.8 % (42.0-52.0); Hemoglobin 13.6 g/dl (14.0-18.0); Imm Gran Abs Auto 0.01 X10*3/uL (0.00-0.03); Imm Gran Pct Auto 0.2 % (0.0-0.4); Lymphocytes Percent Auto 18.1 % (20-40); Mean Corpuscular HGB Conc 33.3 g/dl (31.0-36.0); Mean Corpuscular Hemoglobin 30.9 pg (27.0-33.0); Mean Corpuscular Volume 92.7 fL (80.0-98.0); Monocytes Absolute Auto 0.5 X10*3/uL (0.1-1.2); Monocytes Percent Auto 9.3 % (2-11); Neutrophils Absolute Auto 3.6 x10*3/uL (2.0-8.3); Neutrophils Percent Auto 69.2 % (45-73); Platelet Count 213 X10*3/uL (160-400); Red Cell Distribution Width 12.8 % (11.0-16.0); White Blood Count 5.3 X10*3/uL (4.8-10.8)
[2023-08-25 16:27] LABS: Alanine Aminotransferase 15 U/L (0-40); Albumin Level 4.1 g/dL (3.5-5.0); Alkaline Phosphatase 139 U/L (39-117); Anion Gap 13 (12-20); Aspartate Amino Transferase 16 U/L (5-37); Bilirubin Total 0.4 mg/dL (0.0-1.0); Blood Urea Nitrogen 11 mg/dL (9-16); Calcium 9.3 mg/dL (8.4-10.2); Carbon Dioxide 26 mmol/L (22-29); Chloride 105 mmol/L (96-108); Estimated Glomerular Filt Rate > 60; Glucose Random 107 mg/dL (60-115); Potassium 3.9 mmol/L (3.3-5.1); Sodium 140 mmol/L (135-145); Total Protein 7.6 g/dL (6.5-8.0)
[2023-08-25 17:22] LABS: Prostate Specific Antigen 0.55 ng/mL (<0.05-4.0)
== END 2023-08-25 11:37 | disposition home or self-care (01) ==
LOC: HO.10HDL 11:36
PROVIDERS: Visit Provider Internal Medicine Medical Oncology
DX: E66.3 Overweight (principal); C61 Malignant neoplasm of prostate; N40.0 Benign prostatic hyperplasia without lower urinary tract symptoms; Z12.5 Encounter for screening for malignant neoplasm of prostate
CPT/HCPCS: 36415; 80053; 84153; 85025

== ENCOUNTER 2023-08-26 09:23 | Outpatient (AMB) | payer MEDICARE, MEDICAID, SELFPAY ==
[2023-08-26 09:26] VITALS: BP 140/62; PULSE 55; O2SAT 97; BMI 25.5
--- NOTE | 2023-08-26 09:26 | MHC.PC.OV ---
Vital Signs 08/26/23 09:26 Height 6 ft 3 in Weight 204 lb BMI 25.5 BP 140/62 H Blood Pressure Location Lt brachial Position Sitting Pulse 55 Pulse Source Pulse Oximeter Pulse Oximetry (%) 97 Oxygen Delivery Method Room Air Intake Visit Reasons: f/u Prostate cancer/ HTN Fixture Builder Required: No Workers Compensation Claims Assistant: Not Required per policy Accompanied by: Self / Same As Patient Allergies [id number] Reductase Inhibitor Adverse Reaction (Intermediate, Verified 08/26/23 09:41) Joint and muscle pain Medication List - Last Reconciled 08/26/23 by Gadiel Tripp PA-C amlodipine 5 mg (2 x 2.5 mg) PO DAILY 90 days vserrrdzhi-nqpdayxxrgeqz-orqq 50-300-40 mg (Fioricet) 1 cap PO Q8H PRN cholecalciferol (vitamin D3) 25 mcg PO DAILY escitalopram oxalate 20 mg PO DAILY 30 days omeprazole 40 mg PO DAILY oxycodone 10 mg PO ONCE 28 days promethazine 12.5 mg PO TID PRN 7 days Tobacco use date assessed: 04/27/23 Fall risk assessment: No Falls in past year Last assessed Fall Risk: 08/26/23 Dental Screening Dental Screen Date: 08/26/23 Did you have a dental visit in the last 12 months?: Yes Did you have a dental problem in the last 6 months where you did not have access to dental care?: No Was dental information given to patient?: Patient has dentist HPI f/u Prostate cancer/ HTN HPI Details Patient is 68-year-old male here today for follow-up visit. Patient has a past medical history significant for hyperlipidemia, prostate cancer with Mets to rib, hypertension and major depressive disorder. .. Hypertension:? Blood pressure today in office acceptable.? He continues on low-dose amlodipine 5 mg. ? ? Has been followed Cardiology . .. Major depressive disorder: Did have a brief episode worsening depression secondary to hearing the news that his prostate cancer metastasized. He was started on Lexapro and uptitrated to 20 mg. He does report feeling somewhat more depressed recently it has not been walking like he usually does not will try to get walking again. Will continue his Lexapro at 20 mg .. asthma: Asthma has been well controlled.? Only seldomly needs to use his albuterol inhaler. ?during allergy season his asthma worsens at times. .. Prostate cancer with metastasis to bone:? Continues to oncologist and urologist. Most recent PSA were slightly elevated. PET scan showed metastasize lesion on a single rib. He has followed up with oncologist whom has has finished his sessions of radiation. He reports he is feeling better having less pain ?.? Also uses low-dose oxycodone for his cancer related pain. Now off testosterone therapy Most recent bone scan showing no recurrent malignancy though did have some uptake in the right 8th rib. He reports he is due for new CT PET scan .. Borderline high cholesterol:? Continues to work on lifestyle to reduce his cholesterol.? Has been walking on a daily basis and has managed to lose a few lb ? Laboratory Tests 06/17/23 08/25/23 08:49 11:46 RBC 4.40 L Hgb 13.6 L Creatinine 0.81 Random Glucose 107 Prostate Specific Ag 0.57 0.55 PFSH Medical History Pure hypercholesterolemia Benign essential hypertension BRBPR (bright red blood per rectum) Pathologic rib fracture Acute upper gastrointestinal bleeding Annual physical exam Cough Right shoulder pain Prostate cancer Borderline high cholesterol Other forms of dyspnea Achilles tendon pain Hypogonadism in male HTN (hypertension) MDD (major depressive disorder), recurrent episode Anxiety Asthma Prostate cancer metastatic to bone Surgical History H/O endoscopy H/O prostatectomy Family History Father Pneumonia Substance abuse Mother CAD (coronary artery disease) CHF (congestive heart failure) Brother Stomach cancer Substance abuse Sister Breast cancer Substance abuse Social History Household Members: Friend(s) Housing: House Do you presently have visiting nurse or other home services: No Alcohol intake: never Patient Tobacco Use Status: Never used Tobacco Years Smoked: 40 yrs e-Cigarette/Vaping Use: Never Used Second Hand Smoke Exposure: No Substance Use Type: Marijuana service: No Current occupational status: unemployed Current occupation: [employer] Cognitive needs: No Hearing needs: No Vision needs: No (Pt went to an eye doctor about 4 years ago. ) Questionnaire Thrive Questionnaire Date Thrive assessed: 04/27/23 GABRIELE-7 AMB Questionnaire GABRIELE-7 Date GABRIELE - 7 assessed: 04/27/23 Source: Developed by Drs. Wilfred Obando, Darshana Vaz, Chip Maya and colleagues, with an educational damion from [employer]. Review of Systems Const Denies headache(s) Eyes Denies loss of vision ENT Denies vertigo, Denies dizziness, Denies headache(s) and Denies sore throat Card Denies chest pain, Denies leg edema and Denies lightheadedness Resp Denies cough, Denies hemoptysis and Denies wheezing GI Denies abdominal pain, Denies melena, Denies constipation, Denies diarrhea and Denies vomiting Denies dysuria, Denies urinary frequency and Denies urinary urgency Musc Denies arthralgias, Denies joint swelling, Denies numbness and Denies tingling Neuro Denies Abnormal speech present, Denies behavioral changes, Denies vertigo, Denies dizziness, Denies headache(s), Denies loss of vision, Denies memory loss, Denies numbness and Denies tingling Psych Denies anxiety, Denies behavioral changes, Denies depression, Denies memory loss and Denies panic attacks Yasir/Lymph Denies easy bleeding and Denies easy bruising Aller/Immun Denies wheezing Physical exam (Primary Care) Vital Signs: Last Vital Signs Pulse 55 08/26/23 09:26 BP 140/62 H 08/26/23 09:26 Pulse Ox 97 08/26/23 09:26 Oxygen Delivery Method Room Air 08/26/23 09:26 BMI result Body Mass Index 25.5 Tobacco/Smoking Status: Tobacco use Status Tobacco use date assessed 04/27/23 08/26/23 09:30 Patient Tobacco Use Status Never used Tobacco 08/26/23 09:30 e-Cigarette/Vaping Use Never Used 08/26/23 09:30 Thrive Assessment: Date of Thrive Assessment Date Thrive assessed 04/27/23 08/26/23 09:30 Const General: healthy appearing, no acute distress, alert and awake Nutritional Appearance: well nourished Orientation/consciousness: oriented to person, oriented to place and oriented to time HENMT Ears: TM's normal bilaterally General nose exam: Normal nasal mucous membranes and turbinates present Eyes Conjunctivae: conjunctivae normal Sclerae: sclerae normal Pupils: Equal, round and reactive pupils present Neck Neck: Yes no lymphadenopathy and Yes no JVD Thyroid: Thyroid normal Carotids: no bruits Resp Effort & Inspection: normal respiratory effort and not tachypneic Auscultation: no crackles, no rales, no rhonchi and no wheezes Cardio Rate: regular rate Rhythm: regular rhythm Heart sounds: no murmurs and normal S1 and S2 GI Palpation (GI): Soft to palpation, nontender, no hepatomegaly and no splenomegaly Auscultation: normal bowel sounds Skin General skin exam: no rashes or lesions noted and dry skin Neuro General: oriented to person, oriented to place and oriented to time Cranial nerves: Yes Equal, round and reactive pupils present Speech: No Abnormal speech present Gait exam (Neuro): Normal gait present Motor exam (neuro): no tremor noted Extrem Right upper extremity: full ROM Left upper extremity: full ROM Right lower extremity: full ROM; no edema Left lower extremity: full ROM; no edema Psych Mental Status: mental status grossly normal Speech and movement: Normal speech and movement present Affect: normal affect Attitude: cooperative Thought process: Normal thought process present Office Procedures Flu Questionnaire Does the patient have a severe egg allergy?: No Does the patient have severe life threatening allergies?: No Does the patient have a fever or illness today?: No Has the patient ever had Guillain-Chipley Syndrome?: No Has the patient ever had any past reaction to a flu shot?: No Immunizations flu vacc [id number] 6mos up(PF) 60 mcg(15 mcgx4)/0.5 mL IM syringe Performing Provider: Gadiel Tripp PA-C Performing Location: [facility] Administered by: KEVIN Mcgill on 08/26/23 09:36 Dose Route Admin Location Dispensed Lot Number Expiration Date NDC Spring Maker 0.5 mL IM Left Deltoid 0.5 mL [id number] 02/27/24 [id number] [employer] VIS Given Date VIS Provided VIS Publication Date 08/26/23 Single Vaccine 21 Eligibility Eligibility Date Funding Source Not [facility] Eligible 08/26/23 Private Assessment and Plan Assessment & Plan (1) Hyperlipidemia: Code(s): E78.5 - Hyperlipidemia, unspecified Qualifiers: Hyperlipidemia type: mixed hyperlipidemia Qualified Code(s): E78.2 - Mixed hyperlipidemia Plan: Patient's most recent lipid panel showing acceptable total cholesterol and LDL. He would like to continue lifestyle modifications with goal LDL to be below 130 (2) HTN (hypertension): Code(s): I10 - Essential (primary) hypertension Qualifiers: Hypertension type: essential hypertension Qualified Code(s): I10 - Essential (primary) hypertension Plan: Patient's blood pressure slightly elevated today in office. Will continue 5 mg amlodpine with goal blood pressure to be below 140/90 (3) Prostate cancer metastatic to bone: Comment: Intermittent hormone therapy Code(s): C61 - Malignant neoplasm of prostate; C79.51 - Secondary malignant neoplasm of bone Plan: Patient continues to follow Oncology and Urology. Most recent PSA 0.55. Bone scan showed METS to 8th rib. Recently underwent radiation to his ribs. Pain has been better we have reduced his oxycodone dose to 10 mg daily p.r.n.. He has upcoming follow-up with Urology in September 2023. Will be due for new CT PET scan (4) MDD (major depressive disorder), recurrent episode: Code(s): F33.9 - Major depressive disorder, recurrent, unspecified Qualifiers: Major depression episode severity: moderate Qualified Code(s): F33.1 - Major depressive disorder, recurrent, moderate Plan: Had recent increase in his depression and was restarted on SSRI therapy. He continues on Lexapro 20 mg with decent affect on his anxiety. Does reports being somewhat depressed and will try to get more physically active which has helped his depression tremendously. Orders: Orders Microalbumin, Random (w Creat) Today I10 - Essential (primary) hypertension Complete Blood Count no Diff Today I10 - Essential (primary) hypertension Lipid Panel Today E78.2 - Mixed hyperlipidemia Influenza [id number] Immunization Today Z23 - Encounter for immunization Comprehensive [place]. Panel Fast Today I10 - Essential (primary) hypertension Medications: Changed From oxycodone Partial Fill upon patient request. 10 mg PO ONCE 28 days 28 tabs 0RF severe pain C61 - Malignant neoplasm of prostate, C79.51 - Secondary malignant neoplasm of bone To oxycodone caner related pain - 10 mg PO ONCE 28 days 28 tabs 0RF severe pain C61 - Malignant neoplasm of prostate, C79.51 - Secondary malignant neoplasm of bone Discontinued promethazine Discontinued Reason: Doctor's Order 12.5 mg PO TID 7 days PRN 21 tabs 0RF nausea and vomiting C61 - Malignant neoplasm of prostate, C79.51 - Secondary malignant neoplasm of bone, R11.0 - Nausea Coding Level of Care Code Est Pt Level 4 (84517) Diagnoses Mixed hyperlipidemia E78.2 Hyperlipidemia type: mixed hyperlipidemia Essential hypertension I10 Hypertension type: essential hypertension Prostate cancer metastatic to bone C61; C79.51 Moderate episode of recurrent major depressive disorder F33.1 Major depression episode severity: moderate
== END 2023-08-26 09:55 | disposition home or self-care (01) ==
PROVIDERS: PCP Physician Assistant; Visit Provider Physician Assistant
DX: C61 Malignant neoplasm of prostate (principal); C79.51 Secondary malignant neoplasm of bone; F33.1 Major depressive disorder, recurrent, moderate; Z23 Encounter for immunization; E78.2 Mixed hyperlipidemia; I10 Essential (primary) hypertension
CPT/HCPCS: 90471; 90686; 99214

== ENCOUNTER 2023-10-05 07:59 | Outpatient (REF) | payer MEDICARE, MEDICAID, SELFPAY ==
--- NOTE | ~2023-10-05 | PE_ITS ---
EXAMINATION: Ga-68-PSMA -11 (ILLUCCIX) PET/CT CLINICAL INDICATION: Subsequent treatment management. Metastatic prostate cancer. PROCEDURE: Radiopharmaceutical: Ga-68-PSMA -11. Dose: 6.15 mCi injected in the left antecubital superficial vein. Image acquisition: 68 minutes following IV radiotracer administration, positron emission tomography was performed from the mid thighs to vertex. Non-contrast low-dose helical CT imaging was performed over the same range without breath-hold for attenuation correction of PET images and anatomic correlation. Total CT exam dose-length product 900.94 mGy-cm * These CT images were obtained using dose optimization techniques as appropriate, variously including the following: Automated exposure control * Adjustment of mA and/or kV according to patient size (this includes techniques or standardized protocols for targeted exams where dose is matched to indication/reason for exam; i.e. extremities or head) * Use of iterative reconstruction technique COMPARISON: CT of the chest done on 03/24/[address] of the abdomen and pelvis done on 03/19/2023 and CTA of the chest done on 02/01/2023. Report from outside PSMA PET/CT scan done on 04/01/2023. Report from right paraspinal rib CT-guided core biopsy done on 04/22/2023. Additional Clinical information: Surgery:Details unknown ; XRT: Details unknown ADT: Details PSA: Unknown, not provided. FINDINGS: FINDINGS: SUV max REFERENCE: Blood: 2.2 (106/267). Liver: 6.4 (138/267). Parotid gland:10.2 (21/267). HEAD AND NECK: No abnormal radiotracer uptake. No large intracranial hemorrhage, acute territorial infarct or significant shift of midline structures. CHEST: Ports and Devices: None Lungs: Nonspecific focal airspace opacity is noted at right lower lobe posteromedially without any tracer avidity likely represent hypoventilatory, atelectatic changes versus evolving pneumonia. Radiographic correlation to document resolution is recommended. Pleura: No significant pleural effusion. Lymph Nodes: No tracer-avid mediastinal, hilar or internal mammary or axillary lymphadenopathy. Mediastinum: There is no significant pericardial effusion/thickening. Breasts/Chest Wall: No abnormal radiotracer uptake. Bilateral mild gynecomastia is noted. ABDOMEN/PELVIS: Liver/Biliary System: No focal tracer-avid liver lesion. The gallbladder appears unremarkable. Pancreas: Diffuse mild fatty replacement. No evidence of any tracer avid disease or pancreatic ductal dilatation. Spleen: No abnormal radiotracer uptake. No evidence of splenomegaly. Adrenal Glands: No abnormal radiotracer uptake. Kidneys: No hydronephrosis, hydroureter or renal calculi bilaterally. Bowel: There is no significant bowel dilatation to suggest obstruction. Small sliding hiatal hernia. Lymph Nodes: No tracer avid retroperitoneal, mesenteric or pelvic and/or groin lymphadenopathy. Pelvic Organs: The urinary bladder is underdistended. Postsurgical changes of prostatectomy. No evidence of tracer avid disease within and around the surgical bed to suspect local disease recurrence. MUSCULOSKELETAL: Mild asymmetric tracer avidity associated with underlying sclerosis is present involving the transverse process of T6 vertebral body with SUV max of 1.9 (94/267). At the site of the prior biopsy proved metastatic prostate adenocarcinoma in the form of large osteolytic lesion associated with soft tissue component involving posteromedial aspect of the right seventh rib there is asymmetric increased tracer avidity present involving the residual sclerotic lesion with SUV max of 2.8. There are no other additional sites of suspicious osseous disease identified within the remainder of the entire visualized included axial and appendicular skeleton. VASCULAR: Mild calcific atherosclerotic disease of the aorta and is branches. No evidence of aneurysm. THE SITE OF MOST INTENSE PSMA AVIDITY AND SUVmax: The site of biopsy proved metastatic prostate adenocarcinoma involving the posteromedial aspect of the right seventh rib with SUV max of 2.8. PET/PET CT fusion skull to thigh IMPRESSION: 1. The site of biopsy proved metastatic prostate adenocarcinoma involving the posteromedial aspect of the right seventh rib shows mild tracer avidity with SUV max of 2.8 (PSMA score of 1). Note is also made of mild tracer avidity associated with underlying sclerosis involving the transverse processes of T6 vertebral body with SUV max of 1.9 (PS MA score of 0), highly suspicious for second site of metastatic disease. There are however no other osseous tracer avid disease identified to suspect additional sites of metastasis. 2. No evidence of tracer avidity within and around the surgical bed at the site of prior prostatectomy within the pelvis to suspect local disease recurrence. 3. No evidence of tracer avid lymphadenopathy to suspect regional or metastatic lymphadenopathy or soft tissue/visceral metastasis. 4. Nonspecific focal airspace disease at right lower lobe of the lung may represent atelectasis versus evolving pneumonia. Follow-up imaging to document resolution is recommended. PSMA score reference: Score Reported PSMA expression Uptake 0 No Below blood pool 1 Low Equal to or above blood pool and lower than liver 2 Intermediate Equal to or above liver and lower than parotid gland 3 High Equal to or above parotid gland
== END 2023-10-05 08:00 | disposition home or self-care (01) ==
LOC: HO.PET 07:59
PROVIDERS: PCP Physician Assistant; Visit Provider Urology
DX: Z13.89 Encounter for screening for other disorder (principal)

== ENCOUNTER 2023-11-03 12:58 | Outpatient (AMB) | payer MEDICARE, MEDICAID, SELFPAY ==
--- NOTE | 2023-11-03 13:21 | A.OFFVIS_ITS ---
Intake Intake Visit Reasons: 4m/Pet-CT(set) Intake Note: Patient presents today for a follow-up op on Pet-CT Meds- None Allergies to Antibiotic- No Known Allergies Blood Thinner- None Electrical Discharge Machine Operator Required: No Accompanied by: Self / Same As Patient Allergies Lihbazg-EZC-AgC Reductase Inhibitor Adverse Reaction (Intermediate, Verified 11/03/23 13:36) Joint and muscle pain HPI HPI Comments History of Present Illness Details Mr Briceno is a very pleasant male. He is a patient of Dr. Tripp. Copies of notes to his oncologist Dr Maynard. He is seen for the following urologic condition - prostate cancer - hypogonadism Stability on imaging PSA 0.55 T 547 Continue 4 month review Will need imaging staging given persistent changes 10/23 0.55, T 547 The site of biopsy proved metastatic prostate adenocarcinoma involving the posteromedial aspect of the right seventh rib shows mild tracer avidity with SUV max of 2.8 (PSMA score of 1). Note is also made of mild tracer avidity associated with underlying sclerosis involving the transverse processes of T6 vertebral body with SUV max of 1.9 (PSMA score of 0), highly suspicious for second site of metastatic disease. There are however no other osseous tracer avid disease identified to suspect additional sites of metastasis 04/21 right posterior 8th rib metastatic lesion - external beam radiation with Fuad Forbes - review with Dr. Nur Co[facility] - her conclusion was indolent prostate cancer with solitary bony met in setting of low PSA - recommendation was to repeat PSMA imag ing every 4 months since following with PSA unreliable - would not initiate hormone therapy at this point given poor prior response Labs 03/20 P 0.21, T 448, 09/21 T 476 P 0.3, 12/20 T 481 P 0.5, 06/21 0.56 T 547 Prostate cancer: 2005 initial therapy prostatectomy grade 3+4, rising PSA 2007 with external beam radiation and subsequent intermittent hormones Prostate cancer was diagnosed December 2005 Dr Costa. Diagnosis was reached by needle biopsy. The Lima grade is 3+4 = 7, at surgery - tertiary 5. Extraprostatic extension at base of gland. Seminal vesicles were involved. Left micrometastatic focus of prostatic adenocarcinoma in 2/5 lymph nodes. - ? of rib involvement 2011. TNM Classification of Malignant Tumours (TNM) T2a. The [place] (NCCN) risk category is Intermediate Risk (PSA 10-20, Gl 7, T2). Initial therapy included Primary treatment 2005 , Prostatectomy (RRP/Robotic) , Additional treatment 2007 , External Beam Radiation , Additional treatment 2009 , Hormonal Blockade - Continuous, with, GnRH agonists (Lupron) and , Antiandrogen (nilandron) , Additional treatment 2015 , Hormonal Blockade -intermittent Last 01/12 , Additional treatment Prolia 04/16. Recent labs included a PSA (prostate-specific antigen) October 2015 undetectable Jun 2016 , a PSA (prostate-specific antigen), < 0.1, a testosterone, < 20 ng/dL October 2016 , a PSA (prostate-specific antigen), , < 0.1, T Mar , a PSA (prostate-specific antigen), < 0.1 10/17 , a PSA (prostate-specific antigen), < 0.1, T 167, 04/16 , a PSA (prostate-specific antigen), < 0.1, 05/17 , a PSA (prostate-specific antigen), < 0.1 05/18 PSA < 0.1, T 465 12/17 , PSA 0.05, Hct 50.3, T not done, 04/18 PSA 0.12, T 1000 - 10/20 PSA 0.12 T 2231, 06/19 0.15 458, 11/18 0.19 479 Recent imaging included a bone scan reported as negative , a DEXA scan 2013 osteopenia , a DEXA scan 2015 , showing osteopenia/osteoporosis , Plain x-ray 12/14 - no rib fracture 04/15 , a bone scan - ? compression fracture - MRI completed 12/17 DEXA - Normal levels - 06/18 BONE SCAN, NORMAL DEGENERATIVE CHANGE, 06/19 bone scan degenerative change no metastatic disease - 01/19 DEXA - osteopenia - 01/19 bone scan degenerative changes - ?moderate to significant focal activity left anterior 5th costochondral junction and right posterior 8th rib - 04/21 CT right medial posterior eighth rib which in this demonstrates destructive lesion which also extends to the right transverse process of T8 slightly increased compared to prior imaging. Therapeutic plan: Continue with PSA monitoring PFSH Medical History Pure hypercholesterolemia Benign essential hypertension BRBPR (bright red blood per rectum) Pathologic rib fracture Acute upper gastrointestinal bleeding Annual physical exam Cough Right shoulder pain Prostate cancer Borderline high cholesterol Other forms of dyspnea Achilles tendon pain Hypogonadism in male HTN (hypertension) MDD (major depressive disorder), recurrent episode Anxiety Asthma Prostate cancer metastatic to bone Surgical History H/O endoscopy H/O prostatectomy Family History Father Pneumonia Substance abuse Mother CAD (coronary artery disease) CHF (congestive heart failure) Brother Stomach cancer Substance abuse Sister Breast cancer Substance abuse Social History Household Members: Friend(s) Housing: House Do you presently have visiting nurse or other home services: No Alcohol intake: never Patient Tobacco Use Status: Never used Tobacco Years Smoked: 40 yrs e-Cigarette/Vaping Use: Never Used Second Hand Smoke Exposure: No Substance Use Type: Marijuana service: No Current occupational status: unemployed Current occupation: [employer] for [employer] Cognitive needs: No Hearing needs: No Vision needs: No (Pt went to an eye doctor about 4 years ago. ) Assessment & Plan Assessment & Plan (1) Prostate cancer metastatic to bone: Comment: Intermittent hormone therapy Code(s): C61 - Malignant neoplasm of prostate; C79.51 - Secondary malignant neoplasm of bone Plan Four month follow-up labs and imaging Orders: Orders AMB Urinalysis Automated 11/03/23 R33.9 - Retention of urine, unspecified Prostate Specific Antigen 4 Months C61 - Malignant neoplasm of prostate, C79.51 - Secondary malignant neoplasm of bone Testosterone, Total 4 Months C61 - Malignant neoplasm of prostate, C79.51 - Secondary malignant neoplasm of bone Creatinine 4 Months C61 - Malignant neoplasm of prostate, C79.51 - Secondary malignant neoplasm of bone Blood Urea Nitrogen 4 Months C61 - Malignant neoplasm of prostate, C79.51 - Secondary malignant neoplasm of bone PET CT fusion skull to thigh 4 Months C61 - Malignant neoplasm of prostate, C79.51 - Secondary malignant neoplasm of bone Patient Instructions: Imaging studies, laboratory and physical exam results were discussed and reviewed in detail. No major barriers to patient understanding were identified. An opportunity to ask questions regarding the treatment plan was provided. All questions were answered. The patient expressed understanding and agreement with the above treatment plan. The patient is aware they should contact our office by phone for worsening of their current condition or the appearance of new urologic symptoms. Compliance is encouraged with any medications and followup testing that is ordered. It is a privilege to participate in the urologic care of your patient. If you have any questions or concerns regarding treatment for the above conditions, or other urologic issues, please do not hesitate to contact me. The office telephone contact is [phone]. This note is constructed using voice recognition software. While every effort has been made to ensure accuracy chief of police errors may have been included. Yours sincerely, Dr Chano Chen MD, [facility] - Urology Providers of Expert, Compassionate Care for the Genitourinary System Coding Level of Care Code Est Pt Level 4 (16342) Diagnoses Prostate cancer metastatic to bone C61; C79.51
== END 2023-11-03 13:58 | disposition home or self-care (01) ==
PROVIDERS: PCP Physician Assistant; Visit Provider Urology
DX: C61 Malignant neoplasm of prostate (principal); C79.51 Secondary malignant neoplasm of bone
CPT/HCPCS: 99214

== ENCOUNTER → 2023-11-03 12:58 | Outpatient (BNVA) | payer MEDICARE, MEDICAID, SELFPAY | PROVIDERS: PCP Physician Assistant; Visit Provider Urology | DX: C61 Malignant neoplasm of prostate (principal); C79.51 Secondary malignant neoplasm of bone | CPT/HCPCS: 99212 ==

== ENCOUNTER 2023-11-22 10:27 | Outpatient (REF) | payer MEDICARE, MEDICAID, SELFPAY ==
[2023-11-22 13:55] LABS: MANUAL DIFF FLAG NO
[2023-11-22 14:07] LABS: Basophils Percent Auto 0.4 % (0-2); Eosinophils Absolute Auto 0.2 X10*3/uL (0.0-0.4); Eosinophils Percent Auto 2.8 % (0-4); Hematocrit 40.2 % (42.0-52.0); Hemoglobin 13.4 g/dl (14.0-18.0); Imm Gran Abs Auto 0.02 X10*3/uL (0.00-0.03); Imm Gran Pct Auto 0.3 % (0.0-0.4); Lymphocytes Absolute Auto 1.3 X10*3/uL (1.2-4.9); Lymphocytes Percent Auto 19.6 % (20-40); Mean Corpuscular HGB Conc 33.3 g/dl (31.0-36.0); Mean Corpuscular Hemoglobin 30.7 pg (27.0-33.0); Mean Corpuscular Volume 92.2 fL (80.0-98.0); Mean Platelet Volume 9.8 fL (9.4-12.4); Monocytes Absolute Auto 0.5 X10*3/uL (0.1-1.2); Monocytes Percent Auto 7.4 % (2-11); Neutrophils Absolute Auto 4.7 x10*3/uL (2.0-8.3); Neutrophils Percent Auto 69.5 % (45-73); Platelet Count 225 X10*3/uL (160-400); Red Blood Count 4.36 X10*6/uL (4.60-5.80); Red Cell Distribution Width 13.7 % (11.0-16.0); White Blood Count 6.7 X10*3/uL (4.8-10.8)
[2023-11-22 14:47] LABS: Alanine Aminotransferase 16 U/L (0-40); Albumin Level 4.1 g/dL (3.5-5.0); Alkaline Phosphatase 146 U/L (39-117); Anion Gap 15 (12-20); Aspartate Amino Transferase 16 U/L (5-37); Bilirubin Total 0.3 mg/dL (0.0-1.0); Blood Urea Nitrogen 16 mg/dL (9-16); Calcium 9.2 mg/dL (8.4-10.2); Carbon Dioxide 24 mmol/L (22-29); Chloride 107 mmol/L (96-108); Estimated Glomerular Filt Rate > 60; Glucose Random 104 mg/dL (60-115); Potassium 3.6 mmol/L (3.3-5.1); Sodium 142 mmol/L (135-145); Total Protein 7.6 g/dL (6.5-8.0)
== END 2023-11-22 10:28 | disposition home or self-care (01) ==
LOC: HO.10HDL 10:27
PROVIDERS: PCP Physician Assistant; Referring Provider Urology; Visit Provider Internal Medicine Medical Oncology
DX: E66.3 Overweight (principal); C61 Malignant neoplasm of prostate; N40.0 Benign prostatic hyperplasia without lower urinary tract symptoms; Z12.5 Encounter for screening for malignant neoplasm of prostate
CPT/HCPCS: 36415; 80053; 84153; 85025

== ENCOUNTER 2023-11-25 09:57 | Outpatient (AMB) | payer MEDICARE, SELFPAY ==
[2023-11-25 10:03] VITALS: BP 130/60; PULSE 57; RESP 16; O2SAT 96; BMI 25.9
--- NOTE | 2023-11-25 10:03 | MHC.PC.OV ---
Vital Signs 11/25/23 10:03 Height 6 ft 3 in Weight 207 lb 6 oz BMI 25.9 BP 130/60 Blood Pressure Location Lt brachial Position Sitting Respiration 16 Pulse 57 Pulse Source Pulse Oximeter Pulse Oximetry (%) 96 Oxygen Delivery Method Room Air Intake Visit Reasons: f/u HTN/ prostate cancer. Intake Note: Pt is here a follow-up on HTN) and prostate cancer. Additionally, the patient would like to address the results of their bone density test. Practice Manager Required: No Accompanied by: Self / Same As Patient Allergies Jiaduvx-BVK-LsW Reductase Inhibitor Adverse Reaction (Intermediate, Verified 11/25/23 10:36) Joint and muscle pain Medication List - Last Reconciled 11/25/23 by Gadiel Tripp PA-C amlodipine 5 mg (2 x 2.5 mg) PO DAILY 90 days cholecalciferol (vitamin D3) 25 mcg PO DAILY escitalopram oxalate 20 mg PO DAILY 30 days omeprazole 40 mg PO DAILY oxycodone 10 mg PO ONCE 28 days Tobacco use date assessed: 04/27/23 HPI f/u HTN/ prostate cancer. HPI Details Patient is 68-year-old male here today for follow-up visit. Patient has a past medical history significant for hyperlipidemia, prostate cancer with Mets to rib, hypertension and major depressive disorder. .. Hypertension:? Blood pressure today in office acceptable.? He continues on low-dose amlodipine 5 mg. ? ? Has been followed Cardiology . .. Major depressive disorder: Did have a brief episode worsening depression secondary to hearing the news that his prostate cancer metastasized. Over the last 3 months has reduced his Lexapro dose to 10 mg though reports some recurrent depression. He recently has been feeling a bit more depressed and is interested in increasing his dose of Lexapro back to 20 mg. .. asthma: Asthma has been well controlled.? Only seldomly needs to use his albuterol inhaler. ?during allergy season his asthma worsens at times. .. Prostate cancer with metastasis to bone:? Continues to oncologist and urologist. Most recent PSA were slightly elevated. PET scan showed metastasize lesion on a single rib. He has followed up with oncologist whom has has finished his sessions of radiation. He reports he is feeling better having less pain ?.? Also uses low-dose oxycodone for his cancer related pain. Now off testosterone therapy Most recent bone scan showing no recurrent malignancy though did have some uptake in the right 8th rib. .. Borderline high cholesterol:? Continues to work on lifestyle to reduce his cholesterol.? Has been walking on a daily basis and has managed to lose a few lb ? [facility] Medical History Pure hypercholesterolemia Benign essential hypertension BRBPR (bright red blood per rectum) Pathologic rib fracture Acute upper gastrointestinal bleeding Annual physical exam Cough Right shoulder pain Prostate cancer Borderline high cholesterol Other forms of dyspnea Achilles tendon pain Hypogonadism in male HTN (hypertension) MDD (major depressive disorder), recurrent episode Anxiety Asthma Prostate cancer metastatic to bone Surgical History H/O endoscopy H/O prostatectomy Family History Father Pneumonia Substance abuse Mother CAD (coronary artery disease) CHF (congestive heart failure) Brother Stomach cancer Substance abuse Sister Breast cancer Substance abuse Social History Household Members: Friend(s) Housing: House Do you presently have visiting nurse or other home services: No Alcohol intake: never Patient Tobacco Use Status: Never used Tobacco Years Smoked: 40 yrs e-Cigarette/Vaping Use: Never Used Second Hand Smoke Exposure: No Substance Use Type: Marijuana service: No Current occupational status: unemployed Current occupation: [employer] himself Cognitive needs: No Hearing needs: No Vision needs: No (Pt went to an eye doctor about 4 years ago. ) Questionnaire PHQ-9 Over the last 2 weeks, how often have you been bothered by any of the following problems? 1. Little interest or pleasure in doing things: more than half the days 2. Feeling down, depressed, or hopeless: more than half the days 3. Trouble falling or staying asleep, or sleeping too much: nearly every day 4. Feeling tired or having little energy: more than half the days 5. Poor appetite or overeating: more than half the days 6. Feeling bad about yourself - or that you are a failure or have let yourself or your family down: more than half the days 7. Trouble concentrating on things, such as reading the newspaper or watching television: several days 8. Moving or speaking so slowly that other people could have noticed. Or the opposite - being so fidgety or restless that you have been moving around a lot more than usual: more than half the days 9. Thoughts that you would be better off or of hurting yourself in some way: not at all Total score: 16 Depression Screening Interpretation: Positive Depression Screening Follow-up: Existing condition, New Medication prescribed and Declines treatment Depression Screening Done: Yes 19423 - PHQ-9 Billing: Yes Source: Developed by Drs. Wilfred Obando, Darshana Vaz, Chip Maya and colleagues, with an educational damion from [employer] Thrive Questionnaire Date Thrive assessed: 11/25/23 I am a: Patient What is your living situation today?: I have a steady place to live Within the past 12 months, did the food you bought not last and you didn't have the money to get more?: Never true Within the past 12 months, did you worry whether your food would run out before you got money to buy more?: Never true Do you have trouble paying for medicines?: No Do you have trouble getting transportation to medical appointments?: No Do you have trouble paying your heating and electricity bill?: No Do you have trouble taking care of your child, family member or friend?: No Do you have trouble with day-to-day activities such as bathing, preparing meals, shopping, managing finances, etc.?: No Are you currently unemployed and looking for a job?: No Are you interested in more education?: No Please select the resources that you would like help with: None Currently or been in a relationship where the following occur: no concerns reported THRIVE Score: 0 AUDIT C Alcohol Use Questionnaire (AUDIT-C) 1. How often do you have a drink containing alcohol?: Never 3. How often do you have six or more drinks on one occasion?: Never Total Score: 0 GABRIELE-7 AMB Questionnaire GABRIELE-7 Date GABRIELE - 7 assessed: 11/25/23 Feeling nervous, anxious, or on edge: 2 = More than half the days Not being able to stop or control worryin = More than half the days Worrying too much about different things: 2 = More than half the days Trouble relaxin = Several days Being so restless that it is hard to sit still: 1 = Several days Becoming easily annoyed or irritable: 1 = Several days Feeling afraid as if something awful might happen: 1 = Several days Total GABRIELE-7 score (0-4 normal; 5-9 mild; 10-14 moderate; 15-21 severe): 10 Source: Developed by Drs. Wilfred Obando, Darshana Vaz, Chip Maya and colleagues, with an educational damion from [employer] GABRIELE-7 Assessment Billing GABRIELE-7 Assessment Tool: GABRIELE-7 Assessment 19010 Physical exam (Primary Care) Vital Signs: Last Vital Signs Pulse 57 11/25/23 10:03 Resp 16 11/25/23 10:03 BP 130/60 11/25/23 10:03 Pulse Ox 96 11/25/23 10:03 Oxygen Delivery Method Room Air 11/25/23 10:03 BMI result Body Mass Index 25.9 Tobacco/Smoking Status: Tobacco use Status Tobacco use date assessed 04/27/23 11/25/23 10:13 Patient Tobacco Use Status Never used Tobacco 11/25/23 10:13 e-Cigarette/Vaping Use Never Used 11/25/23 10:13 PHQ-9: PHQ-9 Score PHQ-9: Total score 16 11/25/23 10:14 Depression Screening Interpretation: Positive Depression Screening Follow-up: Existing condition, New Medication prescribed and Declines treatment Thrive Assessment: Date of Thrive Assessment Date Thrive assessed 11/25/23 11/25/23 10:13 Currently or been in a relationship where the following occur: no concerns reported Assessment and Plan Assessment & Plan (1) Prostate cancer metastatic to bone: Comment: Intermittent hormone therapy Code(s): C61 - Malignant neoplasm of prostate; C79.51 - Secondary malignant neoplasm of bone Plan: Patient continues to follow Oncology and Urology. Most recent PSA 0.7 from 0.5. PET showed METS to 8th rib. . Pain has been better we have reduced his oxycodone dose to 10 mg daily p.r.n.. On PET scan there was note of atelectasis in the right lower lung likely secondary to his marijuana smoking. (2) Hyperlipidemia: Code(s): E78.5 - Hyperlipidemia, unspecified Qualifiers: Hyperlipidemia type: mixed hyperlipidemia Qualified Code(s): E78.2 - Mixed hyperlipidemia Plan: Patient's most recent lipid panel showing acceptable total cholesterol and LDL. He would like to continue lifestyle modifications with goal LDL to be below 130 (3) HTN (hypertension): Code(s): I10 - Essential (primary) hypertension Qualifiers: Hypertension type: essential hypertension Qualified Code(s): I10 - Essential (primary) hypertension Plan: Patient's blood pressure slightly elevated today in office. Will continue 5 mg amlodpine with goal blood pressure to be below 140/90 (4) MDD (major depressive disorder), recurrent episode: Code(s): F33.9 - Major depressive disorder, recurrent, unspecified Qualifiers: Major depression episode severity: moderate Qualified Code(s): F33.1 - Major depressive disorder, recurrent, moderate Plan: Patient's PHQ-9 score positive for depression which has been existing condition for him. He reports he has been taking 10 mg of his Lexapro lately though does feel some depressive mood. He would like to return back to 20 mg of Lexapro. He will try to start walking again which has made his depression much better in the past. (5) Constipation: Code(s): K59.00 - Constipation, unspecified Qualifiers: Constipation type: other constipation type Qualified Code(s): K59.09 - Other constipation Plan: Has been experiencing some constipation as of late, willing to try laxative temporarily. Advised on increasing his fluids and fiber in his diet. Orders: Orders Comprehensive [place]. Panel Fast Today I10 - Essential (primary) hypertension Lipid Panel Today E78.2 - Mixed hyperlipidemia Complete Blood Count no Diff Today E78.2 - Mixed hyperlipidemia Medications: New sennosides (senna) 17.2 mg (2 x 8.6 mg) PO BEDTIME 15 days 30 tabs 0RF K59.09 - Other constipation Refilled escitalopram oxalate 20 mg PO DAILY 30 days 30 tabs 6RF F33.2 - Major depressive disorder, recurrent severe without psychotic features oxycodone caner related pain - 10 mg PO ONCE 28 days 28 tabs 0RF severe pain C61 - Malignant neoplasm of prostate, C79.51 - Secondary malignant neoplasm of bone Coding Level of Care Code Est Pt Level 4 (95341) Diagnoses Prostate cancer metastatic to bone C61; C79.51 Mixed hyperlipidemia E78.2 Hyperlipidemia type: mixed hyperlipidemia Essential hypertension I10 Hypertension type: essential hypertension Moderate episode of recurrent major depressive disorder F33.1 Major depression episode severity: moderate Other constipation K59.09 Constipation type: other constipation type Additional Codes GABRIELE-7 Assessment Billing - GABRIELE-7 Assessment Tool: GABRIELE-7 Assessment [id number] ([id number])
== END 2023-11-25 10:59 | disposition home or self-care (01) ==
PROVIDERS: PCP Physician Assistant; Visit Provider Physician Assistant
DX: C61 Malignant neoplasm of prostate (principal); C79.51 Secondary malignant neoplasm of bone; F33.1 Major depressive disorder, recurrent, moderate; E78.2 Mixed hyperlipidemia; I10 Essential (primary) hypertension; K59.09 Other constipation
CPT/HCPCS: 96127; 99214

== ENCOUNTER 2024-01-25 08:51 | Outpatient (REF) | payer MEDICARE, SELFPAY ==
[2024-01-25 09:14] LABS: MANUAL DIFF FLAG NO
[2024-01-25 09:35] LABS: Basophils Percent Auto 0.3 % (0-2); Eosinophils Absolute Auto 0.2 X10*3/uL (0.0-0.4); Hematocrit 41.4 % (42.0-52.0); Hemoglobin 13.8 g/dl (14.0-18.0); Imm Gran Abs Auto 0.02 X10*3/uL (0.00-0.03); Imm Gran Pct Auto 0.3 % (0.0-0.4); Lymphocytes Absolute Auto 1.3 X10*3/uL (1.2-4.9); Lymphocytes Percent Auto 17.4 % (20-40); Mean Corpuscular HGB Conc 33.3 g/dl (31.0-36.0); Mean Corpuscular Hemoglobin 30.5 pg (27.0-33.0); Mean Corpuscular Volume 91.4 fL (80.0-98.0); Mean Platelet Volume 9.4 fL (9.4-12.4); Monocytes Absolute Auto 0.7 X10*3/uL (0.1-1.2); Monocytes Percent Auto 8.8 % (2-11); Neutrophils Absolute Auto 5.3 x10*3/uL (2.0-8.3); Neutrophils Percent Auto 71.2 % (45-73); Platelet Count 239 X10*3/uL (160-400); Red Blood Count 4.53 X10*6/uL (4.60-5.80); Red Cell Distribution Width 13.6 % (11.0-16.0); White Blood Count 7.4 X10*3/uL (4.8-10.8)
[2024-01-25 09:56] LABS: Alanine Aminotransferase 17 U/L (0-40); Albumin Level 4.2 g/dL (3.5-5.0); Alkaline Phosphatase 158 U/L (39-117); Anion Gap 14 (12-20); Aspartate Amino Transferase 16 U/L (5-37); Bilirubin Total 0.4 mg/dL (0.0-1.0); Blood Urea Nitrogen 17 mg/dL (9-16); Calcium 9.2 mg/dL (8.4-10.2); Carbon Dioxide 25 mmol/L (22-29); Chloride 106 mmol/L (96-108); Estimated Glomerular Filt Rate > 60; Glucose Random 116 mg/dL (60-115); Potassium 4.1 mmol/L (3.3-5.1); Sodium 141 mmol/L (135-145); Total Protein 7.8 g/dL (6.5-8.0)
[2024-01-25 10:17] LABS: Prostate Specific Antigen 1.14 ng/mL (<0.05-4.0)
== END 2024-01-25 08:52 | disposition home or self-care (01) ==
LOC: HO.LAB 08:51
PROVIDERS: PCP Physician Assistant; Visit Provider Internal Medicine Medical Oncology
DX: E66.3 Overweight (principal); C61 Malignant neoplasm of prostate; N40.0 Benign prostatic hyperplasia without lower urinary tract symptoms; Z12.5 Encounter for screening for malignant neoplasm of prostate
CPT/HCPCS: 36415; 80053; 84153; 85025

== ENCOUNTER 2024-02-10 05:21 | Emergency (ER) | payer MEDICARE, SELFPAY ==
--- NOTE | ~2024-02-10 | MR_ITS ---
MR THORACIC SPINE WITHOUT AND WITH CONTRAST CLINICAL INFORMATION: Soft tissue mass on CT scan. Severe right-sided pain. COMPARISON: Chest CT 02/10/2024. TECHNIQUE: MRI of the thoracic spine was obtained using routine sequences with and without contrast. Intravenous contrast: Magnevist 10 mL. FINDINGS: There is heterogeneous enhancing bone marrow replacement throughout the majority of the T7 and T8 vertebral bodies as well as the right T7 and T8 posterior elements and portions of the posterior aspect of the right seventh and eighth ribs most concerning for osseous metastatic disease. There is also mild enhancing bone marrow replacement involving the right aspect of the T6 vertebral body and posterior elements. These areas of bone marrow replacement are contiguous with a large enhancing right paravertebral/paraspinal mass at T7-T8 measuring up to 7 cm CC by 7 cm AP by 6 cm TV. This enhancing mass extends into and completely effaces the right T6-T7, T7-T8, and T8-T9 neural foramen contiguous with right lateral enhancing epidural disease at T6-T8 that mildly narrows the right thecal sac at these levels without compressing the cord. There are postradiation fatty marrow signal changes at T6-T9. 12 referring thoracic type vertebral bodies. Midthoracic kyphosis. MR/MR thoracic spine wo/w con IMPRESSION: - Extensive enhancing osseous metastatic disease involving the T7, T8, and to a lesser extent the T6 spinal elements as well as the right seventh eighth ribs and right seventh and eighth costovertebral junctions. - These areas of bone marrow replacement are contiguous with a large enhancing right paravertebral/paraspinal mass at T7-T8 measuring up to 7 cm CC by 7 cm AP by 6 cm TV. This enhancing mass extends into and completely effaces the right T6-T7, T7-T8, and T8-T9 neural foramen contiguous with right lateral enhancing epidural disease at T6-T8 that mildly narrows the right thecal sac at these levels without compressing the cord. The enhancing mass infiltrates into the right seventh, eighth, and to a lesser extent sixth intercostal spaces.
--- NOTE | ~2024-02-10 | CT_ITS ---
EXAMINATION: CT CHEST WITHOUT CONTRAST CLINICAL INFORMATION: Right rib pain. History of metastatic prostate cancer. COMPARISON: 03/24/2023 TECHNIQUE: Multidetector volumetric CT imaging of the chest was done. Axial MIP volume rendering provided. Sagittal and coronal reformatted images were obtained. This CT examination was performed using dose optimization techniques as appropriate, variously including the following: *Automated exposure control *Adjustment of mA and/or kV according to patient size (this includes techniques or standardized protocols for targeted exams where dose is matched to indication/reason for exam; i.e. extremities or head) *Use of iterative reconstruction technique DLP: 377 mGy-cm FINDINGS: LUNGS: Left apical scarring. 5 mm nodule left lower lobe on image 327 of series 7. No focal consolidation. Central airways are patent. MEDIASTINUM: No bulky axillary, hilar or mediastinal lymphadenopathy. Great vessels are of normal caliber. Heart size is normal. No pericardial effusion. Gynecomastia. CORONARY ARTERY CALCIFICATION: None visualized on this study. PLEURA: No pleural effusion. UPPER ABDOMEN: No adrenal mass. Fatty infiltration of the pancreas. OSSEOUS STRUCTURES: Subtle cortical thickening of the right seventh ribs at the costovertebral junction. There is sclerosis and destructive changes involving the right eighth rib at the costovertebral junction. There is surrounding infiltrative soft tissue mass with extension into the spinal canal. This measures approximately 6.0 x 3.6 x 6.7 cm. Sclerotic changes involving the T7 and T8 vertebral bodies. CT/CT chest wo IV con IMPRESSION: Sclerosis and destructive changes involving the right eighth rib at the costovertebral junction with surrounding infiltrative soft tissue mass extending into the spinal canal measuring 6.0 x 3.6 x 6.7 cm. There are sclerotic changes involving the T7 and T8 vertebral bodies as well as involving the right seventh rib at the costovertebral junction. This most likely represents metastatic disease. Advise correlation with MRI thoracic spine with and without contrast. 5 mm left lower lobe pulmonary nodule suspicious for metastatic disease.
[2024-02-10 05:36] VITALS: BP 151/62; PULSE 84; RESP 19; TEMP 36.6; O2SAT 97; BMI 25.0
[2024-02-10 05:57] VITALS: BP 147/82; PULSE 83; RESP 20; TEMP 36.6; O2SAT 97
[2024-02-10 06:30] LABS: MANUAL DIFF FLAG NO
[2024-02-10 06:32] LABS: Basophils Percent Auto 0.2 % (0-2); Eosinophils Percent Auto 0.2 % (0-4); Hematocrit 39.7 % (42.0-52.0); Hemoglobin 13.8 g/dl (14.0-18.0); Imm Gran Abs Auto 0.03 X10*3/uL (0.00-0.03); Imm Gran Pct Auto 0.3 % (0.0-0.4); Lymphocytes Percent Auto 9.8 % (20-40); Mean Corpuscular HGB Conc 34.8 g/dl (31.0-36.0); Mean Corpuscular Hemoglobin 30.9 pg (27.0-33.0); Mean Corpuscular Volume 88.8 fL (80.0-98.0); Mean Platelet Volume 8.8 fL (9.4-12.4); Monocytes Absolute Auto 0.7 X10*3/uL (0.1-1.2); Monocytes Percent Auto 7.5 % (2-11); Platelet Count 270 X10*3/uL (160-400); Red Blood Count 4.47 X10*6/uL (4.60-5.80); Red Cell Distribution Width 13.3 % (11.0-16.0); White Blood Count 9.7 X10*3/uL (4.8-10.8)
--- NOTE | 2024-02-10 06:38 | ED.GENADULT ---
HPI - General Adult General Chief complaint: General Medical Stated complaint: Rib Pain Time Seen by Provider: 02/10/24 06:31 Source: patient Mode of arrival: ambulatory Limitations: no limitations History of Present Illness ED Provider: Jorge Matt PA-C HPI narrative: 68 yo male with history of metastatic prostate cancer (active x25 yeas) s/p XRT to the right rib 2022 (last tx Jun 21), HTN, HLD, depression, asthma who presents to the ER for evaluation of severe right sided rib pain that has been progressively getting worse the last couple of weeks. He states after he completed radiation in May his pain was much better. It started coming back a few weeks ago and got acutely worse last night, not tolerable and making it impossible for him to sleep. His PCP gave him 1 dose of oxycodone 10 mg recently with no improvement. He also reports decreased appetite the last few days associated with nausea. One month ago he was walking 5 miles per day and the last one month he has been significantly more tired and fatigued. No SOB or chest pain. No abdominal pains, just no appetite. MD complaint: right sided rib pain Onset (ago): day(s) Location: chest Radiation: non-radiation Severity: severe Severity scale (1-10): 10 Quality: stabbing Pain Consistency: constant Relieving factors: none Exacerbating factors: movement and other (palpation) Associated symptoms: malaise and weakness Treatments prior to arrival: none Related Data Home Medications ?Medication ?Instructions ?Recorded ?Confirmed cholecalciferol (vitamin D3) 25 25 mcg PO DAILY 04/14/23 11/25/23 mcg (1,000 unit) tablet omeprazole 40 mg capsule,delayed 40 mg PO DAILY 04/14/23 11/25/23 release Previous Rx's ?Medication ?Instructions ?Recorded escitalopram oxalate 20 mg tablet 20 mg PO DAILY 30 days #30 tabs 11/25/23 amlodipine 2.5 mg tablet 5 mg (2 x 2.5 mg) PO DAILY #180 12/27/23 tabs oxycodone 10 mg tablet 10 mg PO ONCE severe pain 28 days 01/26/24 #28 tabs sennosides 8.6 mg tablet (senna) 17.2 mg (2 x 8.6 mg) PO BEDTIME 15 01/26/24 days #30 tabs hydromorphone 2 mg tablet 2 mg PO Q4H PRN pain #2 tabs 02/10/24 (Dilaudid) Allergies Allergy/AdvReac Type Severity Reaction Status Date / Time [id number] Reductase AdvReac Intermediate Joint and Verified 02/10/24 05:36 Inhibitor muscle pain Review of Systems Review of Systems: Yes all other systems are reviewed and are negative [facility] Past Medical History Medical History Pure hypercholesterolemia Benign essential hypertension BRBPR (bright red blood per rectum) Pathologic rib fracture Acute upper gastrointestinal bleeding Annual physical exam Cough Right shoulder pain Prostate cancer Borderline high cholesterol Other forms of dyspnea Achilles tendon pain Hypogonadism in male HTN (hypertension) MDD (major depressive disorder), recurrent episode Anxiety Asthma Prostate cancer metastatic to bone Surgical History H/O endoscopy H/O prostatectomy Family History Family History Father Pneumonia Substance abuse Mother CAD (coronary artery disease) CHF (congestive heart failure) Brother Stomach cancer Substance abuse Sister Breast cancer Substance abuse Social History Social History Household Members: Friend(s) Housing: House Do you presently have visiting nurse or other home services: No Alcohol intake: unknown Patient Tobacco Use Status: Never used Tobacco Years Smoked: 40 yrs Smoked in Last 30 Days: No e-Cigarette/Vaping Use: Never Used Second Hand Smoke Exposure: No Use of substances other than those prescribed or required for medical reasons: No Substance Use Type: Marijuana Advance Directives: No Advance Directives Information Provided: No Do you have a plan to hurt others: No Plan service: No Current occupational status: unemployed Current occupation: [employer] Cognitive needs: No Hearing needs: No Vision needs: No (Pt went to an eye doctor about 4 years ago. ) Physical Exam ED Vital Signs: Vital Signs - 24 hr 02/10/24 05:36 02/10/24 05:57 Temperature 97.9 F 97.9 F Pulse Rate 84 83 Respiratory Rate 19 20 Blood Pressure 151/62 H 147/82 H Pulse Oximetry 97 97 Oxygen Delivery Method Room Air Room Air BMI result Body Mass Index 25.0 Appearance: Alert. Oriented X3. No acute distress. Head: normocephalic, atraumatic. Eyes: Pupils equal, round and reactive to light. ENT: Pharynx normal. No tonsillar swelling or exudate. Neck: Normal inspection. Neck supple. CVS: Normal heart rate and rhythm. Pulses normal. Respiratory: No respiratory distress. Breath sounds normal. Chest: lidocaine patch on right anterior/lateral ribs, tender in the area of ribs 7-9, no crepitus. Abdomen: Soft and nontender. +BS x4 Skin: Skin warm and dry. Normal skin color. Normal skin turgor. No rashes. Extremities: No lower extremity edema. No joint swelling. Neuro/psych: Oriented X 3. No motor deficit. No sensory deficit. CN II-XII intact. Normal speech and cognition. Steady gait. Medications Administered Discontinued Medications Generic Name Dose Route Start Last Admin Trade Name Freq PRN Reason Stop Dose Admin Acetaminophen 975 mg 02/10/24 10:25 02/10/24 10:31 Acetaminophen 325 Mg Tablet PO 02/10/24 10:26 975 mg ONCE ONE Administration Dexamethasone Sodium Phosphate 6 mg 02/10/24 09:18 02/10/24 09:34 Dexamethasone Sod Phosphate 4 Mg/Ml Vial IVPUSH 02/10/24 09:19 6 mg ONCE ONE Administration Gadobutrol 10 ml 02/10/24 12:43 02/10/24 12:43 Gadobutrol 10 Ml Vial IVPUSH 02/10/24 12:44 10 ml ONCE ONE Administration Hydromorphone HCl 1 mg 02/10/24 06:55 02/10/24 07:05 Hydromorphone Hcl 1 Mg/Ml Syringe IVPUSH 02/10/24 06:56 1 mg ONCE ONE Administration Protocol Hydromorphone HCl 2 mg 02/10/24 10:25 02/10/24 10:32 Hydromorphone Hcl 2 Mg Tablet PO 02/10/24 10:26 2 mg ONCE ONE Administration Sodium Chloride 1,000 mls @ 999 mls/hr 02/10/24 07:00 02/10/24 12:11 Ns IVCONT 02/10/24 08:00 Infused .Q1H1M HAYDEE Infusion Lorazepam 1 mg 02/10/24 08:56 02/10/24 11:55 Lorazepam 1 Mg Tablet PO 02/10/24 08:57 1 mg ONCE ONE Administration Ondansetron HCl 4 mg 02/10/24 06:55 02/10/24 07:06 Ondansetron Hcl 4 Mg/2 Ml Vial IVPUSH 02/10/24 06:56 4 mg ONCE ONE Administration Medical Decision Making Medical Decision Making MDM Narrative: 68 yo male with history of metastatic prostate cancer (active x25 yeas) s/p XRT to the right rib 2022 (last tx Jun 21), HTN, HLD, depression, asthma who presents to the ER for evaluation of severe right sided rib pain that has been progressively getting worse the last couple of weeks. Pain is severe, making him unable to sleep. He has significant tenderness on the right anterior and lateral chest. No overlying skin changes. He was given IV Dilaudid with some improvement. CT scan of the chest was performed and showed sclerosis and destructive changes involving the right 8th rib with surrounding infiltrative soft tissue mass extending into the spinal canal measuring 6 by 3.6 x 6.7 cm. There was initial concern for possible cord compression that would prompt urgent neurosurgical evaluation or radiation. The results of the scan were discussed with the patient's oncologist Dr. Maynard - STAT MRI was ordered of the thoracic spine w/ and w/out - patient was premedicated with Ativan and an additional dose of Dilaudid for ongoing pain. The results are showing: IMPRESSION: - Extensive enhancing osseous metastatic disease involving the T7, T8, and to a lesser extent the T6 spinal elements as well as the right seventh eighth ribs and right seventh and eighth costovertebral junctions. - These areas of bone marrow replacement are contiguous with a large enhancing right paravertebral/paraspinal mass at T7-T8 measuring up to 7 cm CC by 7 cm AP by 6 cm TV. This enhancing mass extends into and completely effaces the right T6-T7, T7-T8, and T8-T9 neural foramen contiguous with right lateral enhancing epidural disease at T6-T8 that mildly narrows the right thecal sac at these levels without compressing the cord. The enhancing mass infiltrates into the right seventh, eighth, and to a lesser extent sixth intercostal spaces. Case was again discussed with Dr. Maynard. There does not appear to be evidence of cord compression at this time. Dr. Maynard is available to see the patient 1st thing in the morning and arrange urgent outpatient radiation for these lesions. No need for continue dexamethasone. Will DC home with pain control. He is only requesting 2 tablets of pain medication and will follow up with his PCP and oncologist for further management of his pain. Patient was given strict return precautions. Comfortable discharge home Differential Diagnosis Differential Diagnoses: The differential diagnosis associated with the presentation includes metastatic lesion to ribs, radiation pneumonitis, pneumonia, PE, cord compression from metastatic lesion Admission/Observation Consideration of admission/observation: Escalation of care including admission/observation considered pain control Consult Healthcare Provider Management of the patient was discussed with: [employer] Operator Dr. Cowan Oncology Lab Data MDM Lab Attestation statement: I reviewed the patient's lab results. mild anemia, normal renal function 02/10/24 06:24 02/10/24 06:24 Labs: Lab Results 02/10/24 Range/Units 06:24 WBC 9.7 (4.8-10.8) X10*3/uL RBC 4.47 L (4.60-5.80) X10*6/uL Hgb 13.8 L (14.0-18.0) g/dl Hct 39.7 L (42.0-52.0) % MCV 88.8 (80.0-98.0) fL MCH 30.9 (27.0-33.0) pg MCHC 34.8 (31.0-36.0) g/dl RDW 13.3 (11.0-16.0) % Plt Count 270 (160-400) X10*3/uL MPV 8.8 L (9.4-12.4) fL Immature Gran % (Auto) 0.3 (0.0-0.4) % Neut % (Auto) 82.0 H (45-73) % Lymph % (Auto) 9.8 L (20-40) % [place] % (Auto) 7.5 (2-11) % Eos % (Auto) 0.2 (0-4) % Baso % (Auto) 0.2 (0-2) % Lymph # (Auto) 1.0 L (1.2-4.9) X10*3/uL [place] # (Auto) 0.7 (0.1-1.2) X10*3/uL Eos # (Auto) 0.0 (0.0-0.4) X10*3/uL Baso # (Auto) 0.0 (0.0-0.2) X10*3/uL Abs Immat Gran (auto) 0.03 (0.00-0.03) X10*3/uL Absolute Neuts (auto) 8.0 (2.0-8.3) x10*3/uL Absolute Nucleated RBC 0.000 (0.0-0.012) X10*3/uL Nucleated RBC % (auto) 0.0 (0.0-0.2) /100WBC Sodium 136 (135-145) mmol/L Potassium 3.4 (3.3-5.1) mmol/L Chloride 102 (96-108) mmol/L Carbon Dioxide 24 (22-29) mmol/L Anion Gap 13 (12-20) BUN 13 (9-16) mg/dL Creatinine 0.78 (0.5-1.4) mg/dL Estim Creat Clear Calc 108.3 Estimated GFR > 60 Random Glucose 140 H (60-115) mg/dL Calcium 9.6 (8.4-10.2) mg/dL Total Bilirubin 0.6 (0.0-1.0) mg/dL AST 16 (5-37) U/L ALT 15 (0-40) U/L Alkaline Phosphatase 154 H (39-117) U/L Total Protein 8.0 (6.5-8.0) g/dL Albumin 4.1 (3.5-5.0) g/dL Independent Interpretation I performed an independent interpretation of an: CT Scan Interpretation: Soft tissue mass present, agrees radiology read Radiology Impression Discussion of test interpretation with radiology: I have reviewed the radiologist's reading. Radiologist Impression: CT/CT chest wo IV con IMPRESSION: Sclerosis and destructive changes involving the right eighth rib at the costovertebral junction with surrounding infiltrative soft tissue mass extending into the spinal canal measuring 6.0 x 3.6 x 6.7 cm. There are sclerotic changes involving the T7 and T8 vertebral bodies as well as involving the right seventh rib at the costovertebral junction. This most likely represents metastatic disease. Advise correlation with MRI thoracic spine with and without contrast. 5 mm left lower lobe pulmonary nodule suspicious for metastatic disease. External Record Review External record reviewed: Office record, Outpatient record, Prior outpatient labs and Prior outpatient radiology Prescription Management I considered prescription management with: Pain Medication and Antibiotic Chronic Conditions Patient?s care impacted by: Other (Prostate cancer) Critical Care Time Critical Care Time Critical Care Time: Yes Total Critical Care Time: 45 Attestation: I have personally provided critical care time exclusive of time spent on separately billable procedures. Time includes review of lab data, radiology results, discussion with consultants, and monitoring for potential decompensation. Intervention performed as documented. Discharge Plan Discharge Clinical Impression: Malignant neoplasm of prostate metastatic to bone Patient Disposition: Home, Self-Care Instructions: Prostate Cancer (DC), Bone Metastasis (ED) Additional Instructions: Take the prescribed pain medication as needed for severe pain only. Take Motrin and Tylenol as needed for [id number] pain. Follow-up with Dr. Maynard in the office tomorrow at 09:00. He is going to arrange radiation If you develop new or worsening symptoms call 911 or come back to the ER for further evaluation. MR/MR thoracic spine wo/w con IMPRESSION: - Extensive enhancing osseous metastatic disease involving the T7, T8, and to a lesser extent the T6 spinal elements as well as the right seventh eighth ribs and right seventh and eighth costovertebral junctions. - These areas of bone marrow replacement are contiguous with a large enhancing right paravertebral/paraspinal mass at T7-T8 measuring up to 7 cm CC by 7 cm AP by 6 cm TV. This enhancing mass extends into and completely effaces the right T6-T7, T7-T8, and T8-T9 neural foramen contiguous with right lateral enhancing epidural disease at T6-T8 that mildly narrows the right thecal sac at these levels without compressing the cord. The enhancing mass infiltrates into the right seventh, eighth, and to a lesser extent sixth intercostal spaces. Prescriptions: New hydromorphone [Dilaudid] 2 mg tablet 2 mg PO Q4H PRN (Reason: pain) Qty: 2 0RF Rx Instructions: Partial Fill upon patient request. No Action amlodipine 2.5 mg tablet 5 mg PO DAILY Qty: 180 0RF oxycodone 10 mg tablet 10 mg PO ONCE 28 Days Qty: 28 0RF Rx Instructions: caner related pain - sennosides [senna] 8.6 mg tablet 17.2 mg PO BEDTIME 15 Days Qty: 30 2RF omeprazole 40 mg capsule,delayed release(DR/EC) 40 mg PO DAILY cholecalciferol (vitamin D3) 25 mcg (1,000 unit) tablet 25 mcg PO DAILY escitalopram oxalate 20 mg tablet 20 mg PO DAILY 30 Days Qty: 30 6RF Print Language: Maori
[2024-02-10 06:48] LABS: Alanine Aminotransferase 15 U/L (0-40); Albumin Level 4.1 g/dL (3.5-5.0); Alkaline Phosphatase 154 U/L (39-117); Anion Gap 13 (12-20); Aspartate Amino Transferase 16 U/L (5-37); Bilirubin Total 0.6 mg/dL (0.0-1.0); Blood Urea Nitrogen 13 mg/dL (9-16); Calcium 9.6 mg/dL (8.4-10.2); Carbon Dioxide 24 mmol/L (22-29); Chloride 102 mmol/L (96-108); Creatinine Clr Calc Pharmacy 108.3; Estimated Glomerular Filt Rate > 60; Glucose Random 140 mg/dL (60-115); Potassium 3.4 mmol/L (3.3-5.1); Sodium 136 mmol/L (135-145)
[2024-02-10] MEDS: 0.9 % Sodium Chloride 1,000 ML 999 ML IVCONT (07:05)
[2024-02-10] MEDS: HYDROmorphone HCl 1 MG/ML SYRINGE IVPUSH (07:05)
[2024-02-10] MEDS: ondansetron HCL 4 MG/2 ML VIAL IVPUSH (07:06)
[2024-02-10] MEDS: dexAMETHasone sod phosphate 4 MG/ML VIAL 6 MG IVPUSH (09:34)
[2024-02-10] MEDS: Acetaminophen 325 MG TABLET 975 MG PO (10:31)
[2024-02-10] MEDS: HYDROmorphone HCl 2 MG TABLET PO (10:32)
[2024-02-10] MEDS: LORazepam 1 MG TABLET PO (11:55)
[2024-02-10] MEDS: gadobutroL 10 ML VIAL IVPUSH (12:43)
[2024-02-10 14:51] VITALS: BP 149/82; PULSE 108; RESP 16; TEMP 36.6; O2SAT 94
== END 2024-02-10 15:00 | disposition home or self-care (01) ==
PROVIDERS: Emergency Provider Emergency Medicine; PCP Physician Assistant
DX: C61 Malignant neoplasm of prostate (principal); C79.51 Secondary malignant neoplasm of bone; I10 Essential (primary) hypertension; J45.909 Unspecified asthma, uncomplicated
CPT/HCPCS: 36415; 71250; 72157; 80053; 85025; 96361; 96374; 96375; 99284; 99285; A9585; J1100; J1170; J2405

== ENCOUNTER 2024-02-23 11:41 | Outpatient (AMB) | payer MEDICARE, SELFPAY ==
--- NOTE | 2024-02-23 11:43 | A.OFFVIS_ITS ---
Intake Visit Reasons: ER F/U/GnRh Intake Note: Patient presents today for an ER follow up/ GnRh Meds- None Allergies to Antibiotic- No Known Allergies Blood Thinner- None Floors Buffer Required: No Accompanied by: Self / Same As Patient Allergies [id number] Reductase Inhibitor Adverse Reaction (Intermediate, Verified 02/23/24 11:43) Joint and muscle pain HPI Comments Details: Mr Briceno is a very pleasant male. He is a patient of Dr. Tripp. Copies of notes to his oncologist Dr Maynard. He is seen for the following urologic condition - prostate cancer - hypogonadism Has seen Dr. Nur in [place] Given rapid acting GnRH Will need GnRH in 4 weeks On bicalutamide Trying to start Nubequa Recommendation for docetaxel therapy Seeing Dr. Maynard later this week 02/20 Rapid progression of prior metastatic site on vertebral body - 01/20 1.1 Extensive enhancing osseous metastatic disease involving the T7, T8, and to a lesser extent the T6 spinal elements as well as the right seventh eighth ribs and right seventh and eighth costovertebral junction 10/23 0.55, T 547 The site of biopsy proved metastatic prostate adenocarcinoma involving the posteromedial aspect of the right seventh rib shows mild tracer avidity with SUV max of 2.8 (PSMA score of 1). Note is also made of mild tracer avidity associated with underlying sclerosis involving the transverse processes of T6 vertebral body with SUV max of 1.9 (PSMA score of 0), highly suspicious for second site of metastatic disease. There are however no other osseous tracer avid disease identified to suspect additional sites of metastasis 04/21 right posterior 8th rib metastatic lesion - external beam radiation with Fuad Forbes - review with Dr. Nur [facility] - her conclusion was indolent prostate cancer with solitary bony met in setting of low PSA - recommendation was to repeat PSMA imaging every 4 months since following with PSA unreliable - would not initiate hormone therapy at this point given poor prior response Labs 03/20 P 0.21, T 448, 09/21 T 476 P 0.3, 12/20 T 481 P 0.5, 06/21 0.56 T 547 Prostate cancer: 2006 initial therapy prostatectomy grade 3+4, rising PSA 2007 with external beam radiation and subsequent intermittent hormones Prostate cancer was diagnosed December 2005 Dr Costa. Diagnosis was reached by needle biopsy. The Darvin grade is 3+4 = 7, at surgery - tertiary 5. Extraprostatic extension at base of gland. Seminal vesicles were involved. Left micrometastatic focus of prostatic adenocarcinoma in 2/5 lymph nodes. - ? of rib involvement 2011. TNM Classification of Malignant Tumours (TNM) T2a. The [place] (NCCN) risk category is Intermediate Risk (PSA 10-20, Gl 7, T2). Initial therapy included Primary treatment 2005 , Prostatectomy (RRP/Robotic) , Additional treatment 2007 , External Beam Radiation , Additional treatment 2009 , Hormonal Blockade - Continuous, with, GnRH agonists (Lupron) and , Antiandrogen (nilandron) , Additional treatment 2015 , Hormonal Blockade -intermittent Last 01/12 , Additional treatment Prolia 04/16. Recent labs included a PSA (prostate-specific antigen) October 2015 undetectable Jun 2016 , a PSA (prostate-specific antigen), < 0.1, a testosterone, < 20 ng/dL October 2016 , a PSA (prostate-specific antigen), , < 0.1, T Mar , a PSA (prostate-specific antigen), < 0.1 10/17 , a PSA (prostate-specific antigen), < 0.1, T 167, 04/16 , a PSA (prostate-specific antigen), < 0.1, 05/17 , a PSA (prostate-specific antigen), < 0.1 05/18 PSA < 0.1, T 465 12/17 , PSA 0.05, Hct 50.3, T not done, 04/18 PSA 0.12, T 1000 - 10/20 PSA 0.12 T 2231, 06/19 0.15 458, 11/18 0.19 479 Recent imaging included a bone scan reported as negative , a DEXA scan 2013 osteopenia , a DEXA scan 2015 , showing osteopenia/osteoporosis , Plain x-ray 12/14 - no rib fracture 04/15 , a bone scan - ? compression fracture - MRI completed 12/17 DEXA - Normal levels - 06/18 BONE SCAN, NORMAL DEGENERATIVE CHANGE, 06/19 bone scan degenerative change no metastatic disease - 01/19 DEXA - osteopenia - 01/19 bone scan degenerative changes - ?moderate to significant focal activity left anterior 5th costochondral junction and right posterior 8th rib - 04/21 CT right medial posterior eighth rib which in this demonstrates destructive lesion which also extends to the right transverse process of T8 slightly increased compared to prior imaging. Therapeutic plan: Continue with PSA monitoring PFSH Medical History Pure hypercholesterolemia Benign essential hypertension BRBPR (bright red blood per rectum) Pathologic rib fracture Acute upper gastrointestinal bleeding Annual physical exam Cough Right shoulder pain Prostate cancer Borderline high cholesterol Other forms of dyspnea Achilles tendon pain Hypogonadism in male HTN (hypertension) MDD (major depressive disorder), recurrent episode Anxiety Asthma Prostate cancer metastatic to bone Surgical History H/O endoscopy H/O prostatectomy Family History Father Pneumonia Substance abuse Mother CAD (coronary artery disease) CHF (congestive heart failure) Brother Stomach cancer Substance abuse Sister Breast cancer Substance abuse Social History Household Members: Friend(s) Housing: House Do you presently have visiting nurse or other home services: No Alcohol intake: unknown Patient Tobacco Use Status: Never used Tobacco Years Smoked: 40 yrs e-Cigarette/Vaping Use: Never Used Second Hand Smoke Exposure: No Substance Use Type: Marijuana service: No Current occupational status: unemployed Current occupation: [employer] Cognitive needs: No Hearing needs: No Vision needs: No (Pt went to an eye doctor about 4 years ago. ) Review of Systems Const Denies chills and Denies fever(s) Card Reports no additional complaints and Denies syncope Resp Denies cough GI Denies abdominal pain and Denies heartburn Reports as per HPI and Denies change in libido Neuro Denies syncope Psych Denies change in libido Endo Denies change in libido Physical Exam Const General: cooperative, healthy appearing, comfortable and no acute distress Orientation/consciousness: patient oriented x3 HEENT Face and sinus: Yes normal facial exam Mouth: moist mucous membranes Neck Neck: Yes normal visual inspection, Yes full ROM and Yes trachea midline Chest Chest palpation & inspection: normal inspection of the chest Resp Effort & Inspection: normal respiratory effort, able to speak in complete sentences and no respiratory distress GI Inspection: Yes normal to inspection Back/Spine/Pelvis Cervical Spine: normal cervical lordosis Thoracic/Lumbar Spine: thoracic and lumbar spine normal to inspection Skin General skin exam: no rashes or lesions noted Neuro General: patient oriented x3, gait normal, tone normal and moves all extremities Extrem General: Yes normal to inspection and Yes capillary refill normal Assessment & Plan Assessment & Plan (1) Prostate cancer metastatic to bone: Code(s): C61 - Malignant neoplasm of prostate; C79.51 - Secondary malignant neoplasm of bone Category: Medical (2) Hypogonadism in male: Code(s): E29.1 - Testicular hypofunction Category: Medical Plan 1 month follow-up GnRH Patient Instructions: Imaging studies, laboratory and physical exam results were discussed and reviewed in detail. No major barriers to patient understanding were identified. An opportunity to ask questions regarding the treatment plan was provided. All questions were answered. The patient expressed understanding and agreement with the above treatment plan. The patient is aware they should contact our office by phone for worsening of their current condition or the appearance of new urologic symptoms. Compliance is encouraged with any medications and followup testing that is ordered. It is a privilege to participate in the urologic care of your patient. If you have any questions or concerns regarding treatment for the above conditions, or other urologic issues, please do not hesitate to contact me. The office telephone contact is [phone]. This note is constructed using voice recognition software. While every effort has been made to ensure accuracy head of sales and marketing errors may have been included. Yours sincerely, Dr Chano Chen MD, [facility] - Urology Providers of Expert, Compassionate Care for the Genitourinary System Coding Level of Care Code Est Pt Level 4 (32085) Diagnoses Prostate cancer metastatic to bone C61; C79.51 Hypogonadism in male E29.1
== END 2024-02-23 12:13 | disposition home or self-care (01) ==
PROVIDERS: PCP Physician Assistant; Visit Provider Urology
DX: C61 Malignant neoplasm of prostate (principal); C79.51 Secondary malignant neoplasm of bone; E29.1 Testicular hypofunction
CPT/HCPCS: 99214

== ENCOUNTER → 2024-02-23 11:41 | Outpatient (BNVA) | payer MEDICARE, SELFPAY | PROVIDERS: PCP Physician Assistant; Visit Provider Urology | DX: C61 Malignant neoplasm of prostate (principal); C79.51 Secondary malignant neoplasm of bone; E29.1 Testicular hypofunction; Z92.3 Personal history of irradiation | CPT/HCPCS: 99212 ==

== ENCOUNTER 2024-02-28 08:22 | Outpatient (AMB) | payer MEDICARE, SELFPAY ==
[2024-02-28 08:32] VITALS: BP 130/62; PULSE 61; O2SAT 96; BMI 24.0
--- NOTE | 2024-02-28 08:32 | A.OFFPC_ITS ---
Vital Signs 02/28/24 08:32 Height 6 ft 3 in Weight 192 lb BMI 24.0 BP 130/62 Blood Pressure Location Lt brachial Position Sitting Pulse 61 Pulse Source Pulse Oximeter Pulse Oximetry (%) 96 Oxygen Delivery Method Room Air Intake Visit Reasons: f/u HTN Allergies Iubnzle-[id number] Reductase Inhibitor Adverse Reaction (Intermediate, Verified 02/28/24 08:43) Joint and muscle pain Medication List - Last Reconciled 02/28/24 by Gadiel Tripp PA-C abiraterone 1,000 mg (4 x 250 mg) PO DAILY 30 days amlodipine 5 mg (2 x 2.5 mg) PO DAILY bicalutamide 50 mg PO DAILY 90 days cholecalciferol (vitamin D3) 25 mcg PO DAILY dexamethasone mg PO escitalopram oxalate 20 mg PO DAILY 30 days omeprazole 40 mg PO DAILY oxycodone 10 mg PO Q4H sennosides (senna) 17.2 mg (2 x 8.6 mg) PO BEDTIME 15 days Tobacco use date assessed: 02/28/24 Fall risk assessment: No Falls in past year Last assessed Fall Risk: 02/28/24 Dental Screening Dental Screen Date: 02/28/24 Did you have a dental visit in the last 12 months?: Yes Did you have a dental problem in the last 6 months where you did not have access to dental care?: No Was dental information given to patient?: Patient has dentist HPI f/u HTN HPI Details Patient is 68-year-old male here today for follow-up visit. Patient has a past medical history significant for hyperlipidemia, prostate cancer with Mets to rib, hypertension and major depressive disorder. Prostate cancer with metastasis to bone:? Continues to oncologist and urologist. Most recent PSA were slightly elevated. PET scan showed metastasize lesion on a single rib. Recently seen at the [facility] for worsening right rib pain and thoracic MRI showing-->Extensive enhancing osseous metastatic disease involving the T7, T8, and to a lesser extent the T6 spinal elements as well as the right seventh eighth ribs and right seventh and eighth costovertebral junctions. He is then followed up with radiologist at [facility] though was not a candidate for radiation. He will be starting chemotherapy at [facility] in the next 2 weeks. Through [facility] oncology (Dr. Nur) recommended--> pain management with oxycodone 10 mg every 4 hours as needed, dexamethasone 2 mg in the morning and Tylenol a 1000 TID.. .. Hypertension:? Blood pressure today in office acceptable.? He continues on low- dose amlodipine 5 mg. ? ? Has been followed Cardiology . .. Major depressive disorder: Does admit to some worsening depression secondary to hearing the news that his prostate cancer metastasized. We have increase his Lexapro to 20 mg which has been somewhat helpful for his depression. .. asthma: Asthma has been well controlled.? Only seldomly needs to use his albuterol inhaler. ?during allergy season his asthma worsens at times. .. .. Borderline high cholesterol:? Continues to work on lifestyle to reduce his cholesterol.? Has been walking on a daily basis and has managed to lose a few lb PFSH Medical History Pure hypercholesterolemia Benign essential hypertension BRBPR (bright red blood per rectum) Pathologic rib fracture Acute upper gastrointestinal bleeding Annual physical exam Cough Right shoulder pain Prostate cancer Borderline high cholesterol Other forms of dyspnea Achilles tendon pain Hypogonadism in male HTN (hypertension) MDD (major depressive disorder), recurrent episode Anxiety Asthma Prostate cancer metastatic to bone Surgical History H/O endoscopy H/O prostatectomy Family History Father Pneumonia Substance abuse Mother CAD (coronary artery disease) CHF (congestive heart failure) Brother Stomach cancer Substance abuse Sister Breast cancer Substance abuse Social History Household Members: Friend(s) Housing: House Do you presently have visiting nurse or other home services: No Alcohol intake: unknown Patient Tobacco Use Status: Never used Tobacco Years Smoked: 40 yrs e-Cigarette/Vaping Use: Never Used Second Hand Smoke Exposure: No Substance Use Type: Marijuana service: No Current occupational status: unemployed Current occupation: [employer] Cognitive needs: No Hearing needs: No Vision needs: Yes (Pt went to an eye doctor about 4 years ago. ) Questionnaire PHQ-9 Over the last 2 weeks, how often have you been bothered by any of the following problems? 1. Little interest or pleasure in doing things: more than half the days 2. Feeling down, depressed, or hopeless: more than half the days 3. Trouble falling or staying asleep, or sleeping too much: nearly every day 4. Feeling tired or having little energy: more than half the days 5. Poor appetite or overeating: more than half the days 6. Feeling bad about yourself - or that you are a failure or have let yourself or your family down: more than half the days 7. Trouble concentrating on things, such as reading the newspaper or watching television: several days 8. Moving or speaking so slowly that other people could have noticed. Or the opposite - being so fidgety or restless that you have been moving around a lot more than usual: more than half the days 9. Thoughts that you would be better off or of hurting yourself in some way: not at all Total score: 16 Depression Screening Interpretation: Positive Depression Screening Follow-up: Existing condition, New Medication prescribed and Declines treatment Depression Screening Done: Yes 81023 - PHQ-9 Billing: Yes Source: Developed by Drs. Wilfred Obando, Darshana Vaz, Chip Maya and colleagues, with an educational damion from [employer]. Thrive Questionnaire Date Thrive assessed: 11/25/23 AUDIT C Alcohol Use Questionnaire (AUDIT-C) 1. How often do you have a drink containing alcohol?: Never 3. How often do you have six or more drinks on one occasion?: Never Total Score: 0 GABRIELE-7 AMB Questionnaire GABRIELE-7 Date GABRIELE - 7 assessed: 11/25/23 Source: Developed by Drs. Wilfred Obando, Chip Bettencourt and colleagues, with an educational damion from [employer]. Review of Systems Const Denies headache(s) Eyes Denies loss of vision ENT Denies vertigo, Denies dizziness, Denies headache(s) and Denies sore throat Card Denies chest pain, Denies leg edema and Denies lightheadedness Resp Denies cough, Denies hemoptysis and Denies wheezing GI Denies abdominal pain, Denies melena, Denies constipation, Denies diarrhea and Denies vomiting Denies dysuria, Denies urinary frequency and Denies urinary urgency Musc Denies arthralgias, Denies joint swelling, Denies numbness and Denies tingling Neuro Denies Abnormal speech present, Denies behavioral changes, Denies vertigo, Denies dizziness, Denies headache(s), Denies loss of vision, Denies memory loss, Denies numbness and Denies tingling Psych Denies anxiety, Denies behavioral changes, Reports depression, Denies memory loss and Denies panic attacks Yasir/Lymph Denies easy bleeding and Denies easy bruising Aller/Immun Denies wheezing Physical exam (Primary Care) Vital Signs: Last Vital Signs Pulse 61 02/28/24 08:32 BP 130/62 02/28/24 08:32 Pulse Ox 96 02/28/24 08:32 Oxygen Delivery Method Room Air 02/28/24 08:32 BMI result Body Mass Index 24.0 Tobacco/Smoking Status: Tobacco use Status Tobacco use date assessed 02/28/24 02/28/24 08:37 Patient Tobacco Use Status Never used Tobacco 02/28/24 08:37 e-Cigarette/Vaping Use Never Used 02/28/24 08:37 PHQ-9: PHQ-9 Score PHQ-9: Total score 16 02/28/24 08:44 Depression Screening Interpretation: Positive Depression Screening Follow-up: Ex isting condition, New Medication prescribed and Declines treatment Thrive Assessment: Date of Thrive Assessment Date Thrive assessed 11/25/23 02/28/24 08:37 Const Other: Weight loss noted General: healthy appearing, no acute distress, alert and awake Nutritional Appearance: well nourished Orientation/consciousness: oriented to person, oriented to place and oriented to time HENMT Ears: TM's normal bilaterally General nose exam: Normal nasal mucous membranes and turbinates present Eyes Conjunctivae: conjunctivae normal Sclerae: sclerae normal Pupils: Equal, round and reactive pupils present Neck Neck: Yes no lymphadenopathy and Yes no JVD Thyroid: Thyroid normal Carotids: no bruits Resp Effort & Inspection: normal respiratory effort and not tachypneic Auscultation: no crackles, no rales, no rhonchi and no wheezes Cardio Rate: regular rate Rhythm: regular rhythm Heart sounds: no murmurs and normal S1 and S2 GI Palpation (GI): Soft to palpation, nontender, no hepatomegaly and no splenomegaly Auscultation: normal bowel sounds Skin General skin exam: no rashes or lesions noted and dry skin Neuro General: oriented to person, oriented to place and oriented to time Cranial nerves: Yes Equal, round and reactive pupils present Speech: No Abnormal speech present Gait exam (Neuro): Normal gait present Motor exam (neuro): no tremor noted Extrem Right upper extremity: full ROM Left upper extremity: full ROM Right lower extremity: full ROM; no edema Left lower extremity: full ROM; no edema Psych Mental Status: mental status grossly normal Speech and movement: Normal speech and movement present Affect: normal affect Attitude: cooperative Thought process: Normal thought process present Assessment and Plan Assessment & Plan (1) Prostate cancer metastatic to bone: Comment: Intermittent hormone therapy Code(s): C61 - Malignant neoplasm of prostate; C79.51 - Secondary malignant neoplasm of bone Plan: Patient continues to follow Oncology and Urology. Was recently found to more metastatic cancer in the thoracic spine. He has followed up with his oncologist and radiologist whom recommend starting chemo soon. He will be continuing an anti hormonal therapy. . Pain regime at this time--> oxycodone dose to 10 mg q 4 hours PRN , dexamethasone 1 mg in the morning, Tylenol 1000 mg t.i.d.. Current doctors involved in care--> Dr. Forbes radiologist [facility] Dr. Bibiana Joel and Women's oncologist/radiologist Dr. Maynard medical oncologist-Edita Nur- [facility] Oncology team Dr. Chen- [facility] (2) Hyperlipidemia: Code(s): E78.5 - Hyperlipidemia, unspecified Qualifiers: Hyperlipidemia type: mixed hyperlipidemia Qualified Code(s): E78.2 - Mixed hyperlipidemia Plan: Patient's most recent lipid panel showing acceptable total cholesterol and LDL. He would like to continue lifestyle modifications with goal LDL to be below 130 (3) HTN (hypertension): Code(s): I10 - Essential (primary) hypertension Qualifiers: Hypertension type: essential hypertension Qualified Code(s): I10 - Essential (primary) hypertension Plan: Patient's blood pressure slightly elevated today in office. Will continue 5 mg amlodpine with goal blood pressure to be below 140/90 (4) MDD (major depressive disorder), recurrent episode: Code(s): F33.9 - Major depressive disorder, recurrent, unspecified Qualifiers: Major depression episode severity: moderate Qualified Code(s): F33.1 - Major depressive disorder, recurrent, moderate Plan: Patient's PHQ-9 score positive for depression which has been existing condition for him. Will continue him on highest dose of Lexapro at this time Medications: Changed From oxycodone caner related pain - 10 mg PO Q4H severe pain C61 - Malignant neoplasm of prostate, C79.51 - Secondary malignant neoplasm of bone To oxycodone cancer related pain - METS to spine 10 mg PO Q4H PRN 168 tabs 0RF severe pain 28 days C61 - Malignant neoplasm of prostate, C79.51 - Secondary malignant neoplasm of bone Refilled escitalopram oxalate 20 mg PO DAILY 30 tabs 6RF 30 days F33.2 - Major depressive disorder, recurrent severe without psychotic features Coding Level of Care Code Est Pt Level 4 (89932) Diagnoses Prostate cancer metastatic to bone C61; C79.51 Mixed hyperlipidemia E78.2 Hyperlipidemia type: mixed hyperlipidemia Essential hypertension I10 Hypertension type: essential hypertension Moderate episode of recurrent major depressive disorder F33.1 Major depression episode severity: moderate
== END 2024-02-28 09:08 | disposition home or self-care (01) ==
PROVIDERS: PCP Physician Assistant; Visit Provider Physician Assistant
DX: I10 Essential (primary) hypertension (principal); C61 Malignant neoplasm of prostate; C79.51 Secondary malignant neoplasm of bone; F33.1 Major depressive disorder, recurrent, moderate; E78.2 Mixed hyperlipidemia
CPT/HCPCS: 99214

== ENCOUNTER 2024-03-24 11:29 | Outpatient (AMB) | payer MEDICARE, SELFPAY ==
--- NOTE | 2024-03-24 11:38 | A.OFFVIS_ITS ---
Intake Visit Reasons: GnRh/1m Intake Note: Patient presents today for 1M follow up/ GnRh Meds-BICALUTAMIDE,ABIRATERONE Allergies to Antibiotic- No Known Allergies Blood Thinner- None Refrigeration Tech Required: No Accompanied by: Self / Same As Patient Allergies [id number]-IXK-CcT Reductase Inhibitor Adverse Reaction (Intermediate, Verified 03/24/24 11:40) Joint and muscle pain Medication List - Last Reconciled 03/24/24 by Chano Chen MD abiraterone 1,000 mg (4 x 250 mg) PO DAILY 30 days amlodipine 5 mg (2 x 2.5 mg) PO DAILY cholecalciferol (vitamin D3) 25 mcg PO DAILY dexamethasone mg PO escitalopram oxalate 20 mg PO DAILY 30 days omeprazole 40 mg PO DAILY oxycodone 10 mg PO Q4H PRN 28 days sennosides (senna) 17.2 mg (2 x 8.6 mg) PO BEDTIME 15 days HPI Comments Details: Mr Briceno is a very pleasant male. He is a patient of Dr. Tripp. Copies of notes to his oncologist Dr Maynard. He is seen for the following urologic condition - prostate cancer - hypogonadism Oncology - [facility] Dr Rufus Matos administered today. Has had updated imaging. Evaluation with neurosurgery. Had spinal stability with enough retraction that his pain has significantly normalized. Plan to undergo Taxotere administration with Dr. Hooper up at [facility] oncology. Continue 3 month lab work evaluation. Oncology will organize follow-up imaging. 03/22 GnRH long acting administered 02/20 Rapid progression of prior metastatic site on vertebral body - 01/20 1.1 Extensive enhancing osseous metastatic disease involving the T7, T8, and to a lesser extent the T6 spinal elements as well as the right seventh eighth ribs and right seventh and eighth costovertebral junction Given rapid acting GnRH in [place] with Dr. Nur Start Nubeqa/darolutamide Assess for docetaxel 10/23 0.55, T 547 The site of biopsy proved metastatic prostate adenocarcinoma involving the posteromedial aspect of the right seventh rib shows mild tracer avidity with SUV max of 2.8 (PSMA score of 1). Note is also made of mild tracer avidity associated with underlying sclerosis involving the transverse processes of T6 vertebral body with SUV max of 1.9 (PSMA score of 0), highly suspicious for second site of metastatic disease. There are however no other osseous tracer avid disease identified to suspect additional sites of metastasis 04/21 right posterior 8th rib metastatic lesion - external beam radiation with Fuad Forbes - review with Dr. Nur [employer] - her conclusion was indolent prostate cancer with solitary bony met in setting of low PSA - recommendation was to repeat PSMA imaging every 4 months since following with PSA unreliable - would not initiate hormone therapy at this point given poor prior response Labs 03/20 P 0.21, T 448, 09/21 T 476 P 0.3, 12/20 T 481 P 0.5, 06/21 0.56 T 547 Prostate cancer: 2005 initial therapy prostatectomy grade 3+4, rising PSA 2007 with external beam radiation and subsequent intermittent hormones Prostate cancer was diagnosed December 2005 Dr Costa. Diagnosis was reached by needle biopsy. The Darvin grade is 3+4 = 7, at surgery - tertiary 5. Extraprostatic extension at base of gland. Seminal vesicles were involved. Left micrometastatic focus of prostatic adenocarcinoma in 2/5 lymph nodes. - ? of rib involvement 2011. TNM Classification of Malignant Tumours (TNM) T2a. The [place] (NCCN) risk category is Intermediate Risk (PSA 10-20, Gl 7, T2). Initial therapy included Primary treatment 2005 , Prostatectomy (RRP/Robotic) , Additional treatment 2007 , External Beam Radiation , Additional treatment 2009 , Hormonal Blockade - Continuous, with, GnRH agonists (Lupron) and , Antiandrogen (nilandron) , Additional treatment 2015 , Hormonal Blockade -intermittent Last 01/12 , Additional treatment Prolia 04/16. Recent labs included a PSA (prostate-specific antigen) October 2015 undetectable Jun 2016 , a PSA (prostate-specific antigen), < 0.1, a testosterone, < 20 ng/dL October 2016 , a PSA (prostate-specific antigen), , < 0.1, T Mar , a PSA (prostate-specific antigen), < 0.1 10/17 , a PSA (prostate-specific antigen), < 0.1, T 167, 04/16 , a PSA (prostate-specific antigen), < 0.1, 05/17 , a PSA (prostate-specific antigen), < 0.1 05/18 PSA < 0.1, T 465 12/17 , PSA 0.05, Hct 50.3, T not done, 04/18 PSA 0.12, T 1000 - 10/20 PSA 0.12 T 2231, 06/19 0.15 458, 11/18 0.19 479 Recent imaging included a bone scan reported as negative , a DEXA scan 2013 osteopenia , a DEXA scan 2015 , showing osteopenia/osteoporosis , Plain x-ray 12/14 - no rib fracture 04/15 , a bone scan - ? compression fracture - MRI completed 12/17 DEXA - Normal levels - 06/18 BONE SCAN, NORMAL DEGENERATIVE CHANGE, 06/19 bone scan degenerative change no metastatic disease - 01/19 DEXA - osteopenia - 01/19 bone scan degenerative changes - ?moderate to significant focal activity left anterior 5th costochondral junction and right posterior 8th rib - 04/21 CT right medial posterior eighth rib which in this demonstrates destructive lesion which also extends to the right transverse process of T8 slightly increased compared to prior imaging. Therapeutic plan: Continue with PSA monitoring [facility] Medical History Pure hypercholesterolemia Benign essential hypertension BRBPR (bright red blood per rectum) Pathologic rib fracture Acute upper gastrointestinal bleeding Annual physical exam Cough Right shoulder pain Prostate cancer Borderline high cholesterol Other forms of dyspnea Achilles tendon pain Hypogonadism in male HTN (hypertension) MDD (major depressive disorder), recurrent episode Anxiety Asthma Prostate cancer metastatic to bone Surgical History H/O endoscopy H/O prostatectomy Family History Father Pneumonia Substance abuse Mother CAD (coronary artery disease) CHF (congestive heart failure) Brother Stomach cancer Substance abuse Sister Breast cancer Substance abuse Social History Household Members: Friend(s) Housing: House Do you presently have visiting nurse or other home services: No Alcohol intake: unknown Patient Tobacco Use Status: Never used Tobacco Years Smoked: 40 yrs e-Cigarette/Vaping Use: Never Used Second Hand Smoke Exposure: No Substance Use Type: Marijuana service: No Current occupational status: unemployed Current occupation: [employer] for [employer] Cognitive needs: No Hearing needs: No Vision needs: Yes (Pt went to an eye doctor about 4 years ago. ) Review of Systems Const Denies chills and Denies fever(s) Card Reports no additional complaints and Denies syncope Resp Denies cough GI Denies abdominal pain and Denies heartburn Reports as per HPI and Denies change in libido Neuro Denies syncope Psych Denies change in libido Endo Denies change in libido Physical Exam Const General: cooperative, healthy appearing, comfortable and no acute distress Orientation/consciousness: patient oriented x3 HEENT Face and sinus: Yes normal facial exam Mouth: moist mucous membranes Neck Neck: Yes normal visual inspection, Yes full ROM and Yes trachea midline Chest Chest palpation & inspection: normal inspection of the chest Resp Effort & Inspection: normal respiratory effort, able to speak in complete sentences and no respiratory distress GI Inspection: Yes normal to inspection Back/Spine/Pelvis Cervical Spine: normal cervical lordosis Thoracic/Lumbar Spine: thoracic and lumbar spine normal to inspection Skin General skin exam: no rashes or lesions noted Neuro General: patient oriented x3, gait normal, tone normal and moves all extremities Extrem General: Yes normal to inspection and Yes capillary refill normal Office Meds Eligard (6 month) 45 mg (6 month) subcutaneous syringe Performing Provider: Chano Chen MD [facility] Administered by: Chuck Lucio LPN on 03/24/24 12:06 Dose Route Admin Location Dispensed Lot Number Expiration Date [facility] Dairy Clerk 45 mg subcut right arm 45 mg [id number] 02/27/25 57263-969-96 [employer]. Assessment & Plan Assessment & Plan (1) Prostate cancer metastatic to bone: Code(s): C61 - Malignant neoplasm of prostate; C79.51 - Secondary malignant neoplasm of bone Category: Medical (2) Metastatic cancer to spine: Code(s): C79.51 - Secondary malignant neoplasm of bone Category: Medical Plan Continues well Orders: Orders Prostate Specific Antigen 3 Months C61 - Malignant neoplasm of prostate, C79.51 - Secondary malignant neoplasm of bone Testosterone, Total 3 Months C61 - Malignant neoplasm of prostate, C79.51 - Secondary malignant neoplasm of bone AMB Leuprolide Injection - Practice Supplied Today C61 - Malignant neoplasm of prostate, C79.51 - Secondary malignant neoplasm of bone Patient Instructions: Imaging studies, laboratory and physical exam results were discussed and reviewed in detail. No major barriers to patient understanding were identified. An opportunity to ask questions regarding the treatment plan was provided. All questions were answered. The patient expressed understanding and agreement with the above treatment plan. The patient is aware they should contact our office by phone for worsening of their current condition or the appearance of new urologic symptoms. Compliance is encouraged with any medications and followup testing that is ordered. It is a privilege to participate in the urologic care of your patient. If you have any questions or concerns regarding treatment for the above conditions, or other urologic issues, please do not hesitate to contact me. The office tele phone contact is [phone]. This note is constructed using voice recognition software. While every effort has been made to ensure accuracy truck driver flatbed errors may have been included. Yours sincerely, Dr Chano Chen MD, [facility] - Urology Providers of Expert, Compassionate Care for the Genitourinary System Coding Level of Care Code Est Pt Level 3 (61286) Diagnoses Prostate cancer metastatic to bone C61; C79.51 Metastatic cancer to spine C79.51
== END 2024-03-24 12:09 | disposition home or self-care (01) ==
PROVIDERS: PCP Physician Assistant; Visit Provider Urology
DX: C61 Malignant neoplasm of prostate (principal); C79.51 Secondary malignant neoplasm of bone
CPT/HCPCS: 99213

== ENCOUNTER → 2024-03-24 11:29 | Outpatient (BNVA) | payer MEDICARE, SELFPAY | PROVIDERS: PCP Physician Assistant; Visit Provider Urology | DX: C61 Malignant neoplasm of prostate (principal); C79.51 Secondary malignant neoplasm of bone | CPT/HCPCS: 96402; 99212; J9217 ==

== ENCOUNTER 2024-03-29 08:56 | Outpatient (REF) | payer MEDICARE, SELFPAY ==
[2024-03-29 11:36] LABS: Alanine Aminotransferase 22 U/L (0-40); Albumin Level 3.8 g/dL (3.5-5.0); Alkaline Phosphatase 99 U/L (39-117); Anion Gap 12 (12-20); Aspartate Amino Transferase 17 U/L (5-37); Bilirubin Total 0.3 mg/dL (0.0-1.0); Blood Urea Nitrogen 18 mg/dL (9-16); Calcium 9.5 mg/dL (8.4-10.2); Carbon Dioxide 28 mmol/L (22-29); Chloride 105 mmol/L (96-108); Estimated Glomerular Filt Rate > 60; Glucose Random 85 mg/dL (60-115); Potassium 3.9 mmol/L (3.3-5.1); Sodium 141 mmol/L (135-145); Total Protein 6.9 g/dL (6.5-8.0)
[2024-03-29 11:48] LABS: Prostate Specific Antigen 0.47 ng/mL (<0.05-4.0)
[2024-03-29 12:27] LABS: MANUAL DIFF FLAG NO
[2024-03-29 12:35] LABS: Basophils Percent Auto 0.5 % (0-2); Eosinophils Absolute Auto 0.2 X10*3/uL (0.0-0.4); Eosinophils Percent Auto 2.4 % (0-4); Hematocrit 38.7 % (42.0-52.0); Hemoglobin 12.7 g/dl (14.0-18.0); Imm Gran Abs Auto 0.08 X10*3/uL (0.00-0.03); Imm Gran Pct Auto 1.2 % (0.0-0.4); Lymphocytes Absolute Auto 1.7 X10*3/uL (1.2-4.9); Lymphocytes Percent Auto 25.1 % (20-40); Mean Corpuscular HGB Conc 32.8 g/dl (31.0-36.0); Mean Corpuscular Hemoglobin 30.5 pg (27.0-33.0); Mean Platelet Volume 10.5 fL (9.4-12.4); Monocytes Absolute Auto 0.6 X10*3/uL (0.1-1.2); Monocytes Percent Auto 8.6 % (2-11); Neutrophils Absolute Auto 4.1 x10*3/uL (2.0-8.3); Neutrophils Percent Auto 62.2 % (45-73); Platelet Count 211 X10*3/uL (160-400); Red Blood Count 4.16 X10*6/uL (4.60-5.80); Red Cell Distribution Width 16.4 % (11.0-16.0); White Blood Count 6.7 X10*3/uL (4.8-10.8)
[2024-04-02 17:03] LABS: Testosterone, Total 26 ng/dL (250-1100)
== END 2024-03-29 08:57 | disposition home or self-care (01) ==
LOC: HO.10HDL 08:56
PROVIDERS: Internal Medicine Medical Oncology; Visit Provider Urology
DX: E66.3 Overweight (principal); C61 Malignant neoplasm of prostate; C79.51 Secondary malignant neoplasm of bone; Z12.5 Encounter for screening for malignant neoplasm of prostate; R73.9 Hyperglycemia, unspecified
CPT/HCPCS: 36415; 80053; 84153; 84403; 85025

== ENCOUNTER 2024-04-26 10:06 | Outpatient (AMB) | payer MEDICARE, SELFPAY ==
[2024-04-26 10:07] VITALS: BP 132/66; PULSE 101; O2SAT 97; BMI 24.9
--- NOTE | 2024-04-26 10:07 | A.OFFPC_ITS ---
Vital Signs 04/26/24 10:07 Height 6 ft 3 in Weight 199 lb 6 oz BMI 24.9 BP 132/66 Blood Pressure Location Lt brachial Position Sitting Pulse 101 H Pulse Source Pulse Oximeter Pulse Oximetry (%) 97 Oxygen Delivery Method Room Air Intake Visit Reasons: f/u Prostate cancer/ pain management Residential Treatment Specialist Required: No Accompanied by: Self / Same As Patient Allergies [id number] Reductase Inhibitor Adverse Reaction (Intermediate, Verified 04/26/24 10:13) Joint and muscle pain Medication List - Last Reconciled 04/26/24 by Gadiel Tripp PA-C abiraterone 1,000 mg (4 x 250 mg) PO DAILY 30 days amlodipine 5 mg (2 x 2.5 mg) PO DAILY 30 days cholecalciferol (vitamin D3) 25 mcg PO DAILY dexamethasone mg PO escitalopram oxalate 20 mg PO DAILY 30 days omeprazole 40 mg PO DAILY oxycodone 10 mg PO Q4H PRN 28 days sennosides (senna) 17.2 mg (2 x 8.6 mg) PO BEDTIME 15 days Tobacco use date assessed: 02/28/24 Dental Screening Dental Screen Date: 02/28/24 HPI f/u Prostate cancer/ pain management HPI Details Patient is 69 -year-old male here today for follow-up visit. Patient has a past medical history significant for hyperlipidemia, prostate cancer with Mets to rib, hypertension and major depressive disorder. Prostate cancer with metastasis to bone:? Continues to oncologist and urologist. Most recent PSA were slightly elevated. PET scan showed metastasize lesion on a single rib. thoracic MRI showing-->Extensive enhancing osseous metastatic disease involving the T7, T8, and to a lesser extent the T6 spinal elements as well as the right seventh eighth ribs and right seventh and eighth costovertebral junctions. He is then followed up with radiologist at [facility] though was not a candidate for radiation. He has started chemotherapy at [facility] oncology (Dr. Nur) recommended--> pain management with oxycodone 10 mg every 4 hours as needed, dexamethasone 2 mg in the morning and Tylenol a 1000 TID.. He does mentioned since starting chemotherapy has been having some fecal incontinence. Advised to hold off on using senna unless having constipation. .. .. Major depressive disorder: Does admit to some worsening depression secondary to hearing the news that his prostate cancer metastasized. We have increase his Lexapro to 20 mg which has been somewhat helpful for his depression. He is not interested in establishing with a mental health therapist or psychiatrist at this time. He mentions he would like to start walking again to help him with his mental health. [facility] Medical History Pure hypercholesterolemia Benign essential hypertension BRBPR (bright red blood per rectum) Pathologic rib fracture Acute upper gastrointestinal bleeding Annual physical exam Cough Right shoulder pain Prostate cancer Borderline high cholesterol Other forms of dyspnea Achilles tendon pain Hypogonadism in male HTN (hypertension) MDD (major depressive disorder), recurrent episode Anxiety Asthma Prostate cancer metastatic to bone Surgical History H/O endoscopy H/O prostatectomy Family History Father Pneumonia Substance abuse Mother CAD (coronary artery disease) CHF (congestive heart failure) Brother Stomach cancer Substance abuse Sister Breast cancer Substance abuse Social History Household Members: Friend(s) Housing: House Do you presently have visiting nurse or other home services: No Alcohol intake: unknown Patient Tobacco Use Status: Never used Tobacco Years Smoked: 40 yrs e-Cigarette/Vaping Use: Never Used Second Hand Smoke Exposure: No Substance Use Type: Marijuana service: No Current occupational status: unemployed Current occupation: [employer] for [employer] Cognitive needs: No Hearing needs: No Vision needs: Yes (Pt went to an eye doctor about 4 years ago. ) Questionnaire Thrive Questionnaire Date Thrive assessed: 11/25/23 GABRIELE-7 AMB Questionnaire GABRIELE-7 Date GABRIELE - 7 assessed: 11/25/23 Source: Developed by Drs. Wilfred Obando, Darshana Vaz, Chip Maya and colleagues, with an educational damion from [employer]. Review of Systems Const Denies headache(s) Eyes Denies loss of vision ENT Denies vertigo, Denies dizziness, Denies headache(s) and Denies sore throat Card Denies chest pain, Denies leg edema and Denies lightheadedness Resp Denies cough, Denies hemoptysis and Denies wheezing GI Denies abdominal pain, Denies melena, Denies constipation, Denies diarrhea and Denies vomiting Denies dysuria, Denies urinary frequency and Denies urinary urgency Musc Denies arthralgias, Denies joint swelling, Denies numbness and Denies tingling Neuro Denies Abnormal speech present, Denies behavioral changes, Denies vertigo, Denies dizziness, Denies headache(s), Denies loss of vision, Denies memory loss, Denies numbness and Denies tingling Psych Denies anxiety, Denies behavioral changes, Denies depression, Denies memory loss and Denies panic attacks Yasir/Lymph Denies easy bleeding and Denies easy bruising Aller/Immun Denies wheezing Physical exam (Primary Care) Vital Signs: Last Vital Signs Pulse 101 H 04/26/24 10:07 BP 132/66 04/26/24 10:07 Pulse Ox 97 04/26/24 10:07 Oxygen Delivery Method Room Air 04/26/24 10:07 BMI result Body Mass Index 24.9 Tobacco/Smoking Status: Tobacco use Status Tobacco use date assessed 02/28/24 04/26/24 10:08 Patient Tobacco Use Status Never used Tobacco 04/26/24 10:08 e-Cigarette/Vaping Use Never Used 04/26/24 10:08 Thrive Assessment: Date of Thrive Assessment Date Thrive assessed 11/25/23 04/26/24 10:08 Const General: healthy appearing, no acute distress, alert and awake Nutritional Appearance: well nourished Orientation/consciousness: oriented to person, oriented to place and oriented to time HENMT Ears: TM's normal bilaterally General nose exam: Normal nasal mucous membranes and turbinates present Eyes Conjunctivae: conjunctivae normal Sclerae: sclerae normal Pupils: Equal, round and reactive pupils present Neck Neck: Yes no lymphadenopathy and Yes no JVD Thyroid: Thyroid normal Carotids: no bruits Resp Effort & Inspection: normal respiratory effort and not tachypneic Auscultation: no crackles, no rales, no rhonchi and no wheezes Cardio Rate: regular rate Rhythm: regular rhythm Heart sounds: no murmurs and normal S1 and S2 GI Palpation (GI): Soft to palpation, nontender, no hepatomegaly and no splenomegaly Auscultation: normal bowel sounds Skin General skin exam: no rashes or lesions noted and dry skin Neuro General: oriented to person, oriented to place and oriented to time Cranial nerves: Yes Equal, round and reactive pupils present Speech: No Abnormal speech present Gait exam (Neuro): Normal gait present Motor exam (neuro): no tremor noted Extrem Right upper extremity: full ROM Left upper extremity: full ROM Right lower extremity: full ROM; no edema Left lower extremity: full ROM; no edema Psych Mental Status: mental status grossly normal Speech and movement: Normal speech and movement present Affect: normal affect Attitude: cooperative Thought process: Normal thought process present Assessment and Plan Assessment & Plan (1) Prostate cancer metastatic to bone: Comment: Intermittent hormone therapy Code(s): C61 - Malignant neoplasm of prostate; C79.51 - Secondary malignant neoplasm of bone Plan: Patient continues to follow Oncology and Urology. Was recently found to more metastatic cancer in the thoracic spine. He reports pain is well controlled with current pain regime as below. He will be continuing an anti hormonal therapy. He has started chemotherapy at [facility] [place] . Pain regime at this time--> oxycodone dose to 10 mg q 4 hours PRN , dexame thasone 1 mg in the morning, Tylenol 1000 mg t.i.d.. Current doctors involved in care--> Dr. Forbes radiologist [facility] [place] Dr. Bibiana Joel and Women's oncologist/radiologist Dr. Maynard medical oncologist-Edita Nur- [facility] Oncology team Dr. Chen- [facility] (2) MDD (major depressive disorder), recurrent episode: Code(s): F33.9 - Major depressive disorder, recurrent, unspecified Qualifiers: Major depression episode severity: moderate Qualified Code(s): F33.1 - Major depressive disorder, recurrent, moderate Plan: Patient reports his depression is fairly stable. Does have less energy likely secondary to his chemo treatment. He mentioned like to walk more to help him with his depression. Continues on Lexapro 20 mg. He is not interested in mental health therapy at this time and will let us know if he is interested in cognitive behavioral therapy. Medications: Refilled sennosides (senna) 17.2 mg (2 x 8.6 mg) PO BEDTIME 15 days 30 tabs 2RF K59.09 - Other constipation oxycodone cancer related pain - METS to spine 10 mg PO Q4H 28 days PRN 168 tabs 0RF severe pain C61 - Malignant neoplasm of prostate, C79.51 - Secondary malignant neoplasm of bone Coding Level of Care Code Est Pt Level 4 (58017) Diagnoses Prostate cancer metastatic to bone C61; C79.51 Moderate episode of recurrent major depressive disorder F33.1 Major depression episode severity: moderate
== END 2024-04-26 10:25 | disposition home or self-care (01) ==
PROVIDERS: PCP Physician Assistant; Visit Provider Physician Assistant
DX: C61 Malignant neoplasm of prostate (principal); C79.51 Secondary malignant neoplasm of bone; F33.1 Major depressive disorder, recurrent, moderate
CPT/HCPCS: 99214

== ENCOUNTER 2024-06-02 11:07 | Outpatient (REF) | payer MEDICARE, SELFPAY ==
[2024-06-02 14:07] LABS: Appearance Urine Clear; Color Urine Yellow; Glucose Urine UA Negative (Negative); Leukocyte Esterase Urine Trace (Negative); Nitrite Urine Negative (Negative); Specific Gravity - Urine 1.015 (1.005-1.025); UMIC TRIGGER UA YES; Urine Blood Negative (Negative); Urine Ketones Negative (Negative); Urine Protein Negative (Neg-Trace)
[2024-06-02 14:12] LABS: Bacteria Urine None Seen (None Seen); Hyaline Casts Urine 0-2 /LPF (0-2); RBC Urine 0-2 /HPF (0-2); Squamous Epithelial Cell Urine 0-2 /HPF (0-2)
== END 2024-06-02 11:08 | disposition home or self-care (01) ==
LOC: HO.10HDLNP 11:07
PROVIDERS: Visit Provider Internal Medicine Medical Oncology
DX: R39.9 Unspecified symptoms and signs involving the genitourinary system (principal); R82.79 Other abnormal findings on microbiological examination of urine
CPT/HCPCS: 81001; 81003; 87086; 87088; 87186

== ENCOUNTER 2024-06-23 10:09 | Outpatient (AMB) | payer MEDICARE, SELFPAY ==
--- NOTE | 2024-06-23 10:09 | MHC.OFFVIS ---
Intake Visit Reasons: PSA/Testo(set) Intake Note: Patient is present for PSA/Testosterone results Tele follow up Urology Med: Tolterodine, Abiraterone Antibiotic Allergy: None Blood Thinner: None Recent PSA: 03/29/24 0.47 Recent Testosterone: 03/29/24 26 Insurance Customer Service Specialist Required: No Accompanied by: Self / Same As Patient Allergies Hxslmpx-YMG-YxS Reductase Inhibitor Adverse Reaction (Intermediate, Verified 06/23/24 10:09) Joint and muscle pain HPI Comments Details: Mr Briceno is a very pleasant male. He is a patient of Dr. Tripp. Copies of notes to his oncologist Dr Maynard. He is seen for the following urologic condition - prostate cancer - hypogonadism Oncology - [facility] Dr Hooper Telemedicine Evaluation 15 min Consultation Doximity Patrick Video attempted 06/22 On GnRH and Gisell PSA 0.5 - imaging through oncology at [facility] Tolterodine for bladder stability Continue Taxotere - needed some dexamethasone 03/22 GnRH long acting administered PSA 0.47 T 26 02/20 Rapid progression of prior metastatic site on vertebral body - 01/20 1.1 Extensive enhancing osseous metastatic disease involving the T7, T8, and to a lesser extent the T6 spinal elements as well as the right seventh eighth ribs and right seventh and eighth costovertebral junction Given rapid acting GnRH in [place] with Dr. Nur Start Nubeqa/darolutamide Assess for docetaxel 10/23 0.55, T 547 The site of biopsy proved metastatic prostate adenocarcinoma involving the posteromedial aspect of the right seventh rib shows mild tracer avidity with SUV max of 2.8 (PSMA score of 1). Note is also made of mild tracer avidity associated with underlying sclerosis involving the transverse processes of T6 vertebral body with SUV max of 1.9 (PSMA score of 0), highly suspicious for second site of metastatic disease. There are however no other osseous tracer avid disease identified to suspect additional sites of metastasis 04/21 right posterior 8th rib metastatic lesion - external beam radiation with Fuad Forbes - review with Dr. Nur [facility] - her conclusion was indolent prostate cancer with solitary bony met in setting of low PSA - recommendation was to repeat PSMA imaging every 4 months since following with PSA unreliable - would not initiate hormone therapy at this point given poor prior response Labs 03/20 P 0.21, T 448, 1/23 T 476 P 0.3, 12/20 T 481 P 0.5, 06/21 0.56 T 547n Prostate cancer: 2006 initial therapy prostatectomy grade 3+4, rising PSA 2007 with external beam radiation and subsequent intermittent hormones Prostate cancer was diagnosed December 2005 Dr Costa. Diagnosis was reached by needle biopsy. The Darvin grade is 3+4 = 7, at surgery - tertiary 5. Extraprostatic extension at base of gland. Seminal vesicles were involved. Left micrometastatic focus of prostatic adenocarcinoma in 2/5 lymph nodes. - ? of rib involvement 2011. TNM Classification of Malignant Tumours (TNM) T2a. The [place] (NCCN) risk category is Intermediate Risk (PSA 10-20, Gl 7, T2). Initial therapy included Primary treatment 2005 , Prostatectomy (RRP/Robotic) , Additional treatment 2007 , External Beam Radiation , Additional treatment 2009 , Hormonal Blockade - Continuous, with, GnRH agonists (Lupron) and , Antiandrogen (nilandron) , Additional treatment 2015 , Hormonal Blockade -intermittent Last 01/12 , Additional treatment Prolia 04/16. Recent labs included a PSA (prostate-specific antigen) October 2015 undetectable Jun 2016 , a PSA (prostate-specific antigen), < 0.1, a testosterone, < 20 ng/dL October 2016 , a PSA (prostate-specific antigen), , < 0.1, T Mar , a PSA (prostate-specific antigen), < 0.1 10/17 , a PSA (prostate-specific antigen), < 0.1, T 167, 04/16 , a PSA (prostate-specific antigen), < 0.1, 05/17 , a PSA (prostate-specific antigen), < 0.1 05/18 PSA < 0.1, T 465 12/17 , PSA 0.05, Hct 50.3, T not done, 04/18 PSA 0.12, T 1000 - 10/20 PSA 0.12 T 2231, 06/19 0.15 458, 11/18 0.19 479 Recent imaging included a bone scan reported as negative , a DEXA scan 2013 osteopenia , a DEXA scan 2015 , showing osteopenia/osteoporosis , Plain x-ray 12/14 - no rib fracture 04/15 , a bone scan - ? compression fracture - MRI completed 12/17 DEXA - Normal levels - 06/18 BONE SCAN, NORMAL DEGENERATIVE CHANGE, 06/19 bone scan degenerative change no metastatic disease - 01/19 DEXA - osteopenia - 01/19 bone scan degenerative changes - ?moderate to significant focal activity left anterior 5th costochondral junction and right posterior 8th rib - 04/21 CT right medial posterior eighth rib which in this demonstrates destructive lesion which also extends to the right transverse process of T8 slightly increased compared to prior imaging. Therapeutic plan: Continue with PSA monitoring PFSH Medical History Pure hypercholesterolemia Benign essential hypertension BRBPR (bright red blood per rectum) Pathologic rib fracture Acute upper gastrointestinal bleeding Annual physical exam Cough Right shoulder pain Prostate cancer Borderline high cholesterol Other forms of dyspnea Achilles tendon pain Hypogonadism in male HTN (hypertension) MDD (major depressive disorder), recurrent episode Anxiety Asthma Prostate cancer metastatic to bone Surgical History H/O endoscopy H/O prostatectomy Family History Father Pneumonia Substance abuse Mother CAD (coronary artery disease) CHF (congestive heart failure) Brother Stomach cancer Substance abuse Sister Breast cancer Substance abuse Social History Household Members: Friend(s) Housing: House Do you presently have visiting nurse or other home services: No Alcohol intake: unknown Patient Tobacco Use Status: Never used Tobacco Years Smoked: 40 yrs e-Cigarette/Vaping Use: Never Used Second Hand Smoke Exposure: No Substance Use Type: Marijuana service: No Current occupational status: unemployed Current occupation: [employer] Cognitive needs: No Hearing needs: No Vision needs: Yes (Pt went to an eye doctor about 4 years ago. ) Review of Systems Const All systems reviewed & are unremarkable except as noted in HPI and below Reports no additional complaints Resp Reports no additional complaints GI Reports no additional complaints Reports as per HPI Musc Reports no additional complaints Physical Exam Telemedicine evaluation Appropriate responses Regular breathing rate and rhythm HEENT Head: Yes normal to inspection Ears: hearing grossly normal bilaterally Eyes General: appearance normal, both eyes and all related structures Neck Neck: Yes normal visual inspection Chest Chest palpation & inspection: normal inspection of the chest Resp Effort & Inspection: normal respiratory effort and able to speak in complete sentences Telehealth Telehealth Telehealth [facility] Location of provider rendering services: practice address Location of patient: address on file Patient Identification confirmed using: Name, : Yes Telehealth method: video Patient verbally consented to treatment: Yes Patient verbally consented to billing insurance company: Yes Patient informed of any privacy concerns related to visit: Yes Minutes spent on Phone/Video with Pt.: 15 Assessment & Plan Assessment & Plan (1) Prostate cancer metastatic to bone: Comment: Intermittent hormone therapy Code(s): C61 - Malignant neoplasm of prostate; C79.51 - Secondary malignant neoplasm of bone Category: Medical Plan Three-month follow-up GnRH Patient Instructions: Imaging studies, laboratory and physical exam results were discussed and reviewed in detail. No major barriers to patient understanding were identified. An opportunity to ask questions regarding the treatment plan was provided. All questions were answered. The patient expressed understanding and agreement with the above treatment plan. The patient is aware they should contact our office by phone for worsening of their current condition or the appearance of new urologic symptoms. Compliance is encouraged with any medications and followup testing that is ordered. It is a privilege to participate in the urologic care of your patient. If you have any questions or concerns regarding treatment for the above conditions, or other urologic issues, please do not hesitate to contact me. The office telephone contact is [phone]. This note is constructed using voice recognition software. While every effort has been made to ensure accuracy shed hand errors may have been included. Yours sincerely, Dr Chano Chen MD, [facility] - Urology Providers of Expert, Compassionate Care for the Genitourinary System Coding Level of Care Code Tele Est Pt Level 3 (16790) Diagnoses Prostate cancer metastatic to bone C61; C79.51
== END 2024-06-23 11:01 | disposition home or self-care (01) ==
LOC: HO.HUSH 10:09
PROVIDERS: PCP Physician Assistant; Visit Provider Urology
DX: C61 Malignant neoplasm of prostate (principal); C79.51 Secondary malignant neoplasm of bone
CPT/HCPCS: 99213

== ENCOUNTER → 2024-06-23 10:09 | Outpatient (BNVA) | payer MEDICARE, SELFPAY | PROVIDERS: PCP Physician Assistant; Visit Provider Urology ==

== ENCOUNTER 2024-06-26 08:39 | Outpatient (AMB) | payer MEDICARE, SELFPAY ==
--- NOTE | 2024-06-26 08:44 | MHC.PC.OV ---
Vital Signs 06/26/24 08:45 Height 6 ft 3 in Weight 204 lb 2 oz BMI 25.5 BP 128/62 Blood Pressure Location Lt brachial Position Sitting Pulse 80 Pulse Source Pulse Oximeter Pulse Oximetry (%) 97 Oxygen Delivery Method Room Air Intake Visit Reasons: 2 mo f/u Prostate cancer/ pain management. Intake Note: Patient is here to follow up on prostate cancer, pain management. Communications Maintainer Required: No Concrete Layer: Not Required per policy Accompanied by: Self / Same As Patient Allergies Ckxlizc-TXM-VqU Reductase Inhibitor Adverse Reaction (Intermediate, Verified 06/26/24 08:53) Joint and muscle pain Medication List - Last Reconciled 06/26/24 by Gadiel Tripp PA-C abiraterone 1,000 mg (4 x 250 mg) PO DAILY 30 days amlodipine 5 mg (2 x 2.5 mg) PO DAILY 30 days cholecalciferol (vitamin D3) 25 mcg PO DAILY dexamethasone mg PO escitalopram oxalate 20 mg PO DAILY 30 days omeprazole 40 mg PO DAILY oxycodone 10 mg PO Q4H PRN 28 days sennosides (senna) 17.2 mg (2 x 8.6 mg) PO BEDTIME 15 days tolterodine ER 4 mg PO DAILY 30 days Tobacco use date assessed: 06/26/24 Fall risk assessment: No Falls in past year Last assessed Fall Risk: 06/26/24 Dental Screening Dental Screen Date: 02/28/24 HPI 2 mo f/u Prostate cancer/ pain management. HPI Details Patient is 69 -year-old male here today for follow-up visit. Patient has a past medical history significant for hyperlipidemia, prostate cancer with Mets to rib, hypertension and major depressive disorder. Prostate cancer with metastasis to bone:? INTERVAL HISTORY---> Continues to oncologist and urologist. Most recent PSA were slightly elevated. PET scan showed metastasize lesion on a single rib. thoracic MRI showing-->Extensive enhancing osseous metastatic disease involving the T7, T8, and to a lesser extent the T6 spinal elements as well as the right seventh eighth ribs and right seventh and eighth costovertebral junctions. He is then followed up with radiologist at [facility] though was not a candidate for radiation. He has started chemotherapy at [facility] oncology (Dr. Nur) recommended--> pain management with oxycodone 10 mg every 4 hours as needed, dexamethasone 2 mg in the morning and Tylenol a 1000 TID.. He is undergoing chemotherapy and is on his 5th session. He does mention he is having some side effects to chemotherapy including diarrhea and fatigue, dizziness. .. .. Major depressive disorder: He continues on Lexapro 20 mg with decent affect. Still is somewhat depressed though has been stable He is not interested in establishing with a mental health therapist or psychiatrist at this time. He mentions he would like to start walking again to help him with his mental health. Laboratory Tests 11/22/23 02/10/24 03/29/24 10:35 06:24 09:00 RBC 4.36 L 4.47 L Hgb 13.4 L 13.8 L 12.7 L Creatinine 0.73 0.72 Random Glucose 140 H Prostate Specific Ag 0.70 Total Testosterone 26 L PFSH Medical History Pure hypercholesterolemia Benign essential hypertension BRBPR (bright red blood per rectum) Pathologic rib fracture Acute upper gastrointestinal bleeding Annual physical exam Cough Right shoulder pain Prostate cancer Borderline high cholesterol Other forms of dyspnea Achilles tendon pain Hypogonadism in male HTN (hypertension) MDD (major depressive disorder), recurrent episode Anxiety Asthma Prostate cancer metastatic to bone Surgical History H/O endoscopy H/O prostatectomy Family History Father Pneumonia Substance abuse Mother CAD (coronary artery disease) CHF (congestive heart failure) Brother Stomach cancer Substance abuse Sister Breast cancer Substance abuse Social History Household Members: Friend(s) Housing: House Do you presently have visiting nurse or other home services: No Alcohol intake: unknown Patient Tobacco Use Status: Never used Tobacco Years Smoked: 40 yrs e-Cigarette/Vaping Use: Never Used Second Hand Smoke Exposure: No Substance Use Type: Marijuana service: No Current occupational status: unemployed Current occupation: [employer] Cognitive needs: No Hearing needs: No Vision needs: Yes (Pt went to an eye doctor about 4 years ago. ) Questionnaire Thrive Questionnaire Date Thrive assessed: 11/25/23 GABRIELE-7 AMB Questionnaire GABRIELE-7 Date GABRIELE - 7 assessed: 11/25/23 Source: Developed by Drs. Wilfred Obando, Darshana Vaz, Chip Maya and colleagues, with an educational damion from [employer]. Review of Systems Const Denies headache(s) Eyes Denies loss of vision ENT Denies vertigo, Denies dizziness, Denies headache(s) and Denies sore throat Card Denies chest pain, Denies leg edema and Denies lightheadedness Resp Denies cough, Denies hemoptysis and Denies wheezing GI Denies abdominal pain, Denies melena, Reports change in stool character, Denies constipation, Reports diarrhea and Denies vomiting Denies dysuria, Reports urinary frequency and Denies urinary urgency Musc Denies arthralgias, Denies joint swelling, Denies numbness and Denies tingling Neuro Denies Abnormal speech present, Denies behavioral changes, Denies vertigo, Denies dizziness, Denies headache(s), Denies loss of vision, Denies memory loss, Denies numbness and Denies tingling Psych Denies anxiety, Denies behavioral changes, Denies depression, Denies memory loss and Denies panic attacks Yasir/Lymph Denies easy bleeding and Denies easy bruising Aller/Immun Denies wheezing Physical exam (Primary Care) Vital Signs: Last Vital Signs Pulse 80 06/26/24 08:45 BP 128/62 06/26/24 08:45 Pulse Ox 97 06/26/24 08:45 Oxygen Delivery Method Room Air 06/26/24 08:45 BMI result Body Mass Index 25.5 Tobacco/Smoking Status: Tobacco use Status Tobacco use date assessed 06/26/24 06/26/24 08:51 Patient Tobacco Use Status Never used Tobacco 06/26/24 08:51 e-Cigarette/Vaping Use Never Used 06/26/24 08:51 Thrive Assessment: Date of Thrive Assessment Date Thrive assessed 11/25/23 06/26/24 08:51 Const General: healthy appearing, no acute distress, alert and awake Nutritional Appearance: well nourished Orientation/consciousness: oriented to person, oriented to place and oriented to time HENMT Ears: TM's normal bilaterally General nose exam: Normal nasal mucous membranes and turbinates present Eyes Conjunctivae: conjunctivae normal Sclerae: sclerae normal Pupils: Equal, round and reactive pupils present Neck Neck: Yes no lymphadenopathy and Yes no JVD Thyroid: Thyroid normal Carotids: no bruits Resp Effort & Inspection: normal respiratory effort and not tachypneic Auscultation: no crackles, no rales, no rhonchi and no wheezes Cardio Rate: regular rate Rhythm: regular rhythm Heart sounds: no murmurs and normal S1 and S2 GI Palpation (GI): Soft to palpation, nontender, no hepatomegaly and no splenomegaly Auscultation: normal bowel sounds Skin General skin exam: no rashes or lesions noted and dry skin Neuro General: oriented to person, oriented to place and oriented to time Cranial nerves: Yes Equal, round and reactive pupils present Speech: No Abnormal speech present Gait exam (Neuro): Normal gait present Motor exam (neuro): no tremor noted Extrem Right upper extremity: full ROM Left upper extremity: full ROM Right lower extremity: full ROM; no edema Left lower extremity: full ROM; no edema Psych Mental Status: mental status grossly normal Speech and movement: Normal speech and movement present Affect: normal affect Attitude: cooperative Thought process: Normal thought process present Office Procedures Flu Questionnaire Does the patient have a severe egg allergy?: No Does the patient have severe life threatening allergies?: No Does the patient have a fever or illness today?: No Has the patient ever had Guillain-Ch[place]met[place] Syndrome?: No Has the patient ever had any past reaction to a flu shot?: No Immunizations Fluarix Triv [id number] (PF) 45 mcg (15 mcg x 3)/0.5 mL IM syringe Performing Provider: Gadiel Tripp PA-C [facility]forming [facility] Administered by: Carmen Forbes LPN on 06/26/24 09:17 Dose Route Admin Location Dispensed Lot Number Expiration Date [employer] Director 0.5 mL IM Left Deltoid 0.5 mL [id number] 02/26/25 22240-696-61 Vimty VIS Given Date VIS Provided VIS Publication Date 06/26/24 Single Vaccine 21 Eligibility Eligibility Date Funding Source Not [facility] Eligible 06/26/24 Private Coding Level of Care Code Est Pt Level 4 (63692) Diagnoses Metastatic cancer to spine C79.51 Severe episode of recurrent major depressive disorder, without psychotic features F33.2 Psychotic features: without psychotic features Benign essential hypertension I10 Assessment & Plan Assessment & Plan (1) Metastatic cancer to spine: Code(s): C79.51 - Secondary malignant neoplasm of bone Category: Medical Plan: As per HPI patient has prostate cancer with Mets to spine and rib. He continues managing his pain with both Tylenol and oxycodone. He is currently undergoing his 5th cycle of chemotherapy that [facility]. (2) MDD (major depressive disorder), recurrent episode, severe: Code(s): F33.2 - Major depressive disorder, recurrent severe without psychotic features Category: Medical Qualifiers: Psychotic features: without psychotic features Qualified Code(s): F33.2 - Major depressive disorder, recurrent severe without psychotic features Plan: He reports his depression is fairly well controlled with current SSRI therapy. He does have some low moods from time to time secondary to his medical condition and personal issues. (3) Benign essential hypertension: Code(s): I10 - Essential (primary) hypertension Category: Medical Plan: Patient's blood pressure acceptable today in office. Will continue his current dose of amlodipine 2.5 mg. Seems to be having some lower blood pressures likely secondary to dehydration from diarrhea and urinary frequency. Advised to stay well hydrated and include electrolytes in his hydration. Orders: Orders Influenza [id number] Immunization Today Z23 - Encounter for immunization Medications: Refilled oxycodone cancer related pain - METS to spine 10 mg PO Q4H PRN 168 tabs 0RF severe pain 28 days C61 - Malignant neoplasm of prostate, C79.51 - Secondary malignant neoplasm of bone Patient Instructions: Goal: Blood pressure to remain below 140/90 and above 100/60. Barriers: Adherence to physical activity and healthy eating habits
[2024-06-26 08:45] VITALS: BP 128/62; PULSE 80; O2SAT 97; BMI 25.5
== END 2024-06-26 09:16 | disposition home or self-care (01) ==
PROVIDERS: PCP Physician Assistant; Visit Provider Physician Assistant
DX: C79.51 Secondary malignant neoplasm of bone (principal); F33.2 Major depressive disorder, recurrent severe without psychotic features; I10 Essential (primary) hypertension; Z23 Encounter for immunization

== ENCOUNTER → 2024-06-26 08:39 | Outpatient (BNVA) | payer MEDICARE, SELFPAY | PROVIDERS: PCP Physician Assistant; Visit Provider Physician Assistant | DX: Z23 Encounter for immunization (principal); C79.51 Secondary malignant neoplasm of bone; F33.2 Major depressive disorder, recurrent severe without psychotic features; I10 Essential (primary) hypertension | CPT/HCPCS: 90471; 90656; 99212 ==

== ENCOUNTER 2024-08-29 09:16 | Outpatient (AMB) | payer MEDICARE, SELFPAY ==
--- OUTSIDE RECORDS SUMMARY | 2024-08-29 09:18 | XMS_ITS ---
Author Organization Wilfred Maynard III, MD Address [address] [facility] [place] [address] Care Team Providers Care Dietary Services Manager Name Role Phone PREETI HDEZ Primary Care Provider Unavailab Wilfred Marroquin Unavailable [phone] Allergies Allergen (clinical drug ingredient) Drug/Non Drug [...] Date Provider Diagnosis Wilfred Maynard III, MD [address] [place] [address] [place], [place] [address] 03/31/2024 Wilfred Maynard Overweight E66.3 ; Prostate [...] Details Follow Up: 6 Weeks, Reason: ov Provider Name:Wilfred Maynard, 09/04/2024 10:30:00 AM, [address] [place] [address] [place] [facility] [place], [address], Progress Notes * Justin BRICENO JDOB:[birth year] (69 yo M)Acc No.[id number]:03/31/2024 Progress Notes Patient:?Justin Briceno Provider:?Wilfred Maynard MD :1955???Age:68 Y???Sex:Male Ike e:03/31/2024 Address:[address] [place] [address] [place], [id number] Pcp:PREETI HDEZ Subjective: * Chief Complaints: * ???Progression of prostate c ancerNerve impingement thoracic spineAnxiety and depressionOsteopenia * HPI: ???COVID-19 Screening:? He was recently referred to radiation therapy [facility] to see if his pain could be reduced. He was then sent to [place] for an opinion where he saw Dr. Verona Nur, Genitourinary medical oncology. She recommended a treatment that included 6 cycles of docetaxel and darolutamide. He has begun on the oral portion will begin the intravenous chemotherapy next week. His pain is controlled with medication. ?Questions?Have you experienced fever, chills, cough, sore throat, shortness of breath, difficulty breathing, muscle aches, loss of taste or smell??No ?Have you been exposed to the virus within the last 10 days??No ?Have you travelled internationally in the last 10 days??No ?Have you been exposed to COVID-19 in the past??No * ROS:?General/Constitutional:?pain?Thoracic spine and thoracic wall with lifting.?Chills?denies.?Fatigue?admits.?Fever?denies.?ENT:?Decreased hearing?denies.?Respiratory:?Cough?denies.?Cardiovascular:?Chest pain with exertion?occurred frequently.?Dyspnea on exertion?denies.?Shortness of breath?denies.?Gastrointestinal:?Constipation?occasional.?Decreased appetite?denies.?Diarrhea?denies.?Heartburn?denies.?Nausea?denies.?Rectal bleeding?denies.?Vomiting?denies.?Hematology:?bruising?denies.?petechiae?denies.?Swollen glands?none have been noted.?Genitourinary:?Frequent urination?once a night.?Musculoskeletal:?Muscle aches?denies.?Painful joints?denies.?Sciatica?denies.?Weakness?denies.?Skin:?Itching?denies.?Rash?denies.?Skin lesion(s)?denies.?Neurologic:?Difficulty speaking?denies.?Dizziness?denies.?Headache?denies.?Low back pain?denies.?Psychiatric:?Depressed mood?which is moderate.? * Medical History:? * Surgical History:?biopsy of prostate 2006radical prostatectomy 2008 * Hospitalization/Major Diagno stic Procedure:?Shortness of breath 01/2020Shortness of breath 04/2020 * Family History:?Father: dece ased 81 yrs, natural causes, , alcoholism.?Mother: 76 yrs, congestive heart failure, arthritis.?3 brother(s) , 6 sister(s) . 1 daughter(s) - healthy. .? A maternal uncle of prostate cancer at an elderly age. He had a niece who of gastric cancer at age 35. A sister of breast cancer at the age of 39. His father suffered from alcoholism. He is not aware of any other family history of mental illness or substance use disorder or addiction. * Social History:?Tobacco Use:?Tobacco Use/Smoking?Patient is a?nonsmoker ?Additional Findings: Tobacco Non-User?Aggressive non-smoker ???He is single and working. He was born in [place], [place]. He does not drink or smoke. 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 He enjoys [employer]. He has one daughter. * Medications:?TakingoxyCODONE HCl 5 MG Tablet take 1 tablet [...] reviewed and reconciled with the patient * Allergies:?No Known Drug All ergyno[Allergies Verified] Objective: * Vitals:?Ht: 74, Wt:205, BMI: 26.32, BP:133/71, HR:68, Temp:98.6, Ht-cm: 187.96, Wt-k.99. * ???Past Orders: Lab:Comprehensive Met. Panel * Order Date [...] Alkaline Phosphatase 99 (Ref Range: 39-117 U/L) 158?H (Ref Range: 39-117 U/L) 146?H (Ref Range: 39-117 U/L) Potassium 3.9 (Ref [...] 15 (Ref Range: 12-20) Blood Urea Nitrogen 18?H (Ref Range: 9-16 mg/dL) 17?H (Ref Range: 9-16 mg/dL) 16 (Ref Range: 9-16 mg/dL) Creatinine 0.72 (Ref Range: 0.5-1.4 mg/dL) 0.72 (Ref Range: 0.5-1.4 mg/dL) 0.73 (Ref Range: 0.5-1.4 mg/dL) Estimated Glomerular Filt Rate > 60 > 60 > 60 Glucose Random 85 (Ref Range: 60-115 mg/dL) 116?H (Ref Range: 60-115 mg/dL) 104 (Ref Range: 60-115 mg/dL) Calcium 9.5 (Ref Range: 8.4-10.2 mg/dL) 9.2 (Ref Range: 8.4-10.2 mg/dL) 9.2 (Ref Range: 8.4-10.2 mg/dL) * Lab:Complete Blood Count Aut o Diff * Order Date 03/29/2024 01/25/2024 11/22/2023 White Blood Count 6.7 (Ref Range: 4.8-10.8 X10*3/uL) 7.4 (Ref Range: 4.8-10.8 X10*3/uL) 6.7 (Ref Range: 4.8-10.8 X10*3/uL) Red Blood Count 4.16?L (Ref Range: 4.60-5.80 X10*6/uL) 4.53?L (Ref Range: 4.60-5.80 X10*6/uL) 4.36?L (Ref Range: 4.60-5.80 X10*6/uL) Hemoglobin 12.7?L (Ref Range: 14.0-18.0 g/dl) 13.8?L (Ref Range: 14.0-18.0 g/dl) 13.4?L (Ref Range: 14.0-18.0 g/dl) Hematocrit 38.7?L (Ref Range: 42.0-52.0 %) 41.4?L (Ref Range: 42.0-52.0 %) 40.2?L (Ref Range: 42.0-52.0 %) Mean Corpuscular Volume 93.0 (Ref Range: 80.0-98.0 fL) 91.4 (Ref Range: 80.0-98.0 fL) 92.2 (Ref Range: 80.0-98.0 fL) Mean Corpuscular Hemoglobin 30.5 (Ref Range: 27.0-33.0 pg) 30.5 (Ref Range: 27.0-33.0 pg) 30.7 (Ref Range: 27.0-33.0 pg) Mean Corpuscular HGB Conc 32.8 (Ref Range: 31.0-36.0 g/dl) 33.3 (Ref Range: 31.0-36.0 g/dl) 33.3 (Ref Range: 31.0-36.0 g/dl) Red Cell Distribution Width 16.4?H (Ref Range: 11.0-16.0 %) 13.6 (Ref Range: [...] Range: 45-73 %) Imm Gran Pct Auto 1.2?H (Ref Range: 0.0-0.4 %) 0.3 (Ref Range: 0.0-0.4 %) 0.3 (Ref Range: 0.0-0.4 %) Lymphocytes Percent Auto 25.1 (Ref Range: 20-40 %) 17.4?L (Ref Range: 20-40 %) 19.6?L (Ref Range: 20-40 %) Monocytes Percent Auto [...] Range: 2.0-8.3 x10*3/uL) Imm Gran Abs Auto 0.08?H (Ref Range: 0.00-0.03 X10*3/uL) 0.02 (Ref Range: [...] 0.70 (Ref Range: <0.05-4.0 ng/mL) * Examination: ???General Examination: ?GENERAL APPEARANCE:?pleasant, well nourished, well developed, in no acute distress, calm and relaxed , overweight , man.?HEAD:?atraumatic, normocephalic.?EYES:?eomi, perrla, anicteric, conjugate.?EARS:?normal.?NOSE:?septum intact.?ORAL CAVITY:?normal, unremarkable.?NECK/THYROID:?no jugular venous distention, no carotid bruit, thyroid normal.?LYMPH NODES:?no enlarged lymph nodes,spleen normal.?SKIN:?no suspicious lesions, anicteric, Numerous sebaceous cysts.?HEART:?no clicks, gallops, murmurs, or rubs, regular rhythm, S1, S2 normal, no s3, or vascular bruits.?LUNGS:?clear to auscultation .?BREASTS:??no masses palpable bilaterally.?ABDOMEN:?bowel sounds normal, no ascites, no organomegaly, no mass , overweight.?RECTAL EXAM:?not examined.?MUSCULOSKELETAL:?extremities unremarkable, no clubbing, cyanosis or edema, Pain to percussion of the thoracic spine or compression of the ribs.?PERIPHERAL PULSES:?normal.?NEUROLOGIC:?alert and oriented, cranial nerves 2-12 grossly intact, deep tendon reflexes 2+ symmetrical, motor strength normal upper and lower extremities, sensory exam intact.?PSYCH:?alert, oriented , anxious appearing.? Assessment: * Assessment: 1.?Prostate cancer - C61, He has begun a new regimen of leuprolide and docetaxel and darolutamide. His PSA is low and likely not a reliable way to follow malignancy.?2.?Overweight - E66.3, He has gained 2 pounds which reverses a recent study weight loss. This is likely due to treatment of the progressive malignancy. He reports a good appetite. He says he is eating well.?3. Osteopenia - M85.80, He will continue on his current regimen. He will be followed for osteoporosis. He is at risk due to a low testosterone. I recommended 500 mg of calcium twice a day with vitamin D.?4.?Benign prostatic hypertrophy - N40.0, He rises from sleep once or twice a night to urinate. He is occasionally incontinent. We discussed lifestyle modifications way to reduce nocturia. 5.?Reactive depression - F32.9, He will need to [...] parameters of medical oncology and prostate cancer management.? Plan: * Treatment: * Procedure Codes:? * Preventive Medicine:? ??Counseling:?Care goal follow-up plan:?Counseling for abnormal BMI given?Yes ?Above Normal BMI Follow-up?Dietary management education, guidance, and counseling, Dietary needs education * Follow Up:?6 Weeks (Reason: ov) * Images: * Sign off status: Completed true * Provider:?Wilfred Maynard MD Date:?09/2023 Generated for Printi ng/Dennis/eTransmitting on:?08/29/2024 09:18 AM EST History and Physical Notes * [...]
--- OUTSIDE RECORDS SUMMARY | 2024-08-29 09:18 | XMS_ITS ---
Author Organization Wilfred Maynard III, MD Address [address] [facility] [place] [address] Care Team Providers Care Lubrication Worker Name Role Phone PREETI HDEZ Primary Care Provider Unavailab Wilfred Marroquin Unavailable [phone] Allergies Allergen (clinical drug ingredient) Drug/Non Drug [...] Date Provider Diagnosis Wilfred Maynard III, MD [address] [place] [address] [address] [place] [address] 03/10/2024 Wilfred Maynard Overweight E66.3 ; Prostate [...] Details Follow Up: 3 Weeks, Reason: OV Provider Name:Wilfred Maynard, 09/04/2024 10:30:[address], [address], Progress Notes * Justin BRICENO JDOB:[birth year] (68 yo M)Acc No.[id number]:03/10/2024 Progress Notes Patient:?Justin Briceno Provider:?Wilfred Maynard MD :1955???Age:68 Y???Sex:Male Ike e:03/10/2024 Address:[address] [place] [address] [id number] Pcp:PREETI HDEZ Subjective: * Chief Complaints: * ???Progression of prostate c ancerNerve root impingementOccasional incontiinence after prostatectomyReactive depression * HPI: ???COVID-19 Screening:? He returns for ongoing management of his recent progression of prostate cancer in the right seventh rib. The pain from the impingement on the nerve root at the seventh rib has improved with treatment. The bicalutamide has been stopped and replaced with darolutamide (Nubequa). He has an appointment March 16, 2024 at [facility] with medical oncology to begin a course of docetaxel chemotherapy. The leuprolide injections have been resumed. He was medically stable today with improving pain. ?Questions?Have you experienced fever, chills, cough, sore throat, shortness of breath, difficulty breathing, muscle aches, loss of taste or smell??No ?Have you been exposed to the virus within the last 10 days??No ?Have you travelled internationally in the last 10 days??No ?Have you been exposed to COVID-19 in the past??No * ROS:?General/Constitutional:?pain?Chest wall.?Chills?denies.?Fatigue?admits.?Fever?denies.?ENT:?Decreased hearing?denies.?Respiratory:?Cough?denies.?Cardiovascular:?Chest pain with exertion?denies.?Dyspnea on exertion?denies.?Shortness of breath?denies.?Gastrointestinal:?Constipation?occasional.?Decreased appetite?denies.?Diarrhea?denies.?Heartburn?denies.?Nausea?denies.?Rectal bleeding?denies.?Vomiting?denies.?Hematology:?bruising?denies.?petechiae?denies.?Swollen glands?none have been noted.?Genitourinary:?Frequent urination?three times a night.?Musculoskeletal:?Muscle aches?denies.?Painful joints?denies.?Sciatica?denies.?Weakness?denies.?Skin:?Itching?denies.?Rash?denies.?Skin lesion(s)?denies.?Neurologic:?Difficulty speaking?denies.?Dizziness?denies.?Headache?denies.?Low back pain?denies.?Psychiatric:?Depressed mood?which is mild.? * Medical History:? * Surgical History:?biopsy of [...] single and working. He was born in [place], [place]. He does not drink or smoke. 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 He has one daughter. * Medications:?TakingoxyCODONE HCl [...] All ergyno[Allergies Verified] Objective: * Vitals:?Ht: 74, Wt:197, BMI: 25.29, BP:133/77, HR:83, Temp:99.1, Ht-cm: 187.96, Wt-k.36. * ???Past Orders: Lab:Prostate Specific Antige n * Order [...] 4.1 (Ref Range: 3.5-5.0 g/dL) Alkaline Phosphatase 158?H (Ref Range: 39-117 U/L) 146?H (Ref Range: 39-117 U/L) 139?H (Ref Range: 39-117 U/L) Potassium 4.1 (Ref [...] 13 (Ref Range: 12-20) Blood Urea Nitrogen 17?H (Ref Range: 9-16 mg/dL) 16 (Ref Range: 9-16 mg/dL) 11 (Ref Range: 9-16 mg/dL) Creatinine 0.72 (Ref Range: 0.5-1.4 mg/dL) 0.73 (Ref Range: 0.5-1.4 mg/dL) 0.81 (Ref Range: 0.5-1.4 mg/dL) Estimated Glomerular Filt Rate > 60 > 60 > 60 Glucose Random 116?H (Ref Range: 60-115 mg/dL) 104 (Ref [...] (Ref Range: 4.8-10.8 X10*3/uL) Red Blood Count 4.53?L (Ref Range: 4.60-5.80 X10*6/uL) 4.36?L (Ref Range: 4.60-5.80 X10*6/uL) 4.40?L (Ref Range: 4.60-5.80 X10*6/uL) Hemoglobin 13.8?L (Ref Range: 14.0-18.0 g/dl) 13.4?L (Ref Range: 14.0-18.0 g/dl) 13.6?L (Ref Range: 14.0-18.0 g/dl) Hematocrit 41.4?L (Ref Range: 42.0-52.0 %) 40.2?L (Ref Range: 42.0-52.0 %) 40.8?L (Ref Range: 42.0-52.0 %) Mean Corpuscular Volume [...] (Ref Range: 0.0-0.4 %) Lymphocytes Percent Auto 17.4?L (Ref Range: 20-40 %) 19.6?L (Ref Range: 20-40 %) 18.1?L (Ref Range: 20-40 %) Monocytes Percent Auto [...] 1.2-4.9 X10*3/uL) 1.3 (Ref Range: 1.2-4.9 X10*3/uL) 1.0?L (Ref Range: 1.2-4.9 X10*3/uL) Monocytes Absolute Auto [...] 0.000 (Ref Range: 0.0-0.012 X10*3/uL) * Examination: ???General Examination: ?GENERAL APPEARANCE:?pleasant, well nourished, well developed, in no acute distress, calm and relaxed , overweight , man.?HEAD:?atraumatic, normocephalic.?EYES:?eomi, perrla, anicteric, conjugate.?EARS:?normal.?NOSE:?septum intact.?ORAL CAVITY:?normal, unremarkable.?NECK/THYROID:?no jugular venous distention, no carotid bruit, thyroid normal.?LYMPH NODES:?no enlarged lymph nodes,spleen normal.?SKIN:?no suspicious lesions, anicteric.?HEART:?no clicks, gallops, murmurs, or rubs, regular rhythm, S1, S2 normal, no s3, or vascular bruits.?LUNGS:?clear to auscultation .?BREASTS:??no masses palpable bilaterally.?ABDOMEN:?bowel sounds normal, no ascites, no organomegaly, no mass , overweight.?RECTAL EXAM:?not examined.?MUSCULOSKELETAL:?extremities unremarkable, no clubbing, cyanosis or edema, Pain to compression of right chest wall.?PERIPHERAL PULSES:?normal.?NEUROLOGIC:?alert and oriented, cranial nerves 2-12 grossly intact, deep tendon reflexes 2+ symmetrical, motor strength normal upper and lower extremities, sensory exam intact, No muscular weakness, toes are downgoing, reflexes equal and symmetrical.?PSYCH:?alert, oriented , mood depressed , anxious appearing.? Assessment: * Assessment: 1.?Overweight - E66.3 (Prima ry), He has gained 2 pounds which reverses a recent study weight loss. This is likely due to treatment of the progressive malignancy. He reports a good appetite. He says he is eating well.?2.?Prostate cancer - C61, He has begun a new regimen of leuprolide and docetaxel and darolutamide. His PSA is low and likely not a reliable way to follow malignancy. 3.?Hyperglycemia - R73.9, Most recent glucose is 116. This will be followed carefully. A hemoglobin A1c will be ordered.?4.?Osteopenia - M85.80, He will continue on his current regimen. He will be followed for osteoporosis. He is at risk due to a low testosterone. I recommended 500 mg of calcium twice a day with vitamin D.?5.?Incontinence - R32, He continues to have intermittent incontinence of urine. He has adapted to this and is unimpaired and daily living.?6.?Vitamin D deficiency, unspecified - E55.9, He was continued on vitamin D. He is known to have osteopenia.? Plan: * Treatment: 2.?Prostate cancer?LAB: PROFILE, RANDOM (COMPREHENSIVE METABOLIC) ?LAB: PSA, TOTAL ?LAB: TESTOSTERONE, TOTAL ?LAB: CBC WITH AUTO DIFF 3.?Hyperglycemia?LAB: PROFILE, RANDOM (COMPREHENSIVE METABOLIC) ?LAB: PSA, TOTAL ?LAB: TESTOSTERONE, TOTAL ?LAB: CBC WITH AUTO DIFF * Procedure Codes:? * Preventive Medicine:? ??Counseling:?Care goal follow-up plan:?Counseling for abnormal BMI given?Yes ?Above Normal BMI Follow-up?Dietary management education, guidance, and counseling, Dietary needs education * Follow Up:?3 Weeks (Reason: OV) * Images: * Sign off status: Completed true * Provider:?Wilfred Maynard MD Date:?02/27 Generated for Eberi ng/Dennis/eTransmitting on:?08/29/2024 09:18 AM EST History and [...]
--- OUTSIDE RECORDS SUMMARY | 2024-08-29 09:18 | XMS_ITS ---
Author Organization Wilfred Maynard III, MD Address [address] [facility] [place] [address] Care Team Providers Care Materials Management Clerk Name Role Phone PREETI HDEZ Primary Care Provider Unavailab Wilfred Marroquin Unavailable [phone] Allergies Allergen (clinical drug ingredient) Drug/Non Drug Allergy documented on EMR Reaction Allergy Type Onset Date Status No Known Drug Allergy Unknown Drug Allergy Active Results Component Value Reference Range Notes Urine Culture Reviewed date:08/23/2024 08:18:58 AM Interpretation: Performing Lab:[facility], [address] [place] [address] Notes/Report: O:PROMIR Proteus mirabilis Urine Culture Quant [...] Status W/U Status Risk Notes Problem Overweight (578120422) Overweight (E66.3) Active confirmed His weight has been stable. He reports a good appetite. He says he is eating well.He is very slightly overweight. We agreed to stabilize his weight at this level. Vital Signs Temperature 97.3 degrees Fahrenheit 06/02/20 24 Blood pressure systolic 136 mm Hg 06/02/20 24 Blood pressure diastolic 74 mm Hg 024 Heart Rate 75 /min 06/02/2024 Height 74 in 06/02/2024 Weight 206 lbs 06/02/2024 BMI 26.45 kg/m2 06/02/2024 Encounters Encounter Location Date Provider Diagnosis Wilfred Maynard III, MD [address] [place] [address] [place] [address] 06/02/2024 Wilfred Maynard Overweight E66.3 ; Prostate [...] is being treated by medical oncology at [facility]. His review of symptoms and tolerating his [...] Details Follow Up: 3 Months, Reason: OV Provider Name:Wilfred Maynard, 09/04/2024 10:30:00 AM, [address] [place] [address], [address], Progress Notes * Justin BRICENODOB:[birth year] (69 yo M)Acc No.[id number]:06/02/2024 Progress Notes Patient:?Justin BRICENO Provider:?Wilfred Maynard MD :1955???Age:69 Y???Sex:Male Ike e:06/02/2024 Address:[address] [place] [id number] Pcp:PREETI HDEZ Subjective: * Chief Complaints: * ???Stage IV prostate cancerC hronic painOsteopeniaDepressionBenign prosthetic hypertrophy * HPI: ???COVID-19 Screening:?Questions?Have you experienced fever, chills, cough, sore throat, shortness of breath, difficulty breathing, muscle aches, loss of taste or smell??No ?Have you been exposed to the virus within the last 10 days??No ?Have you travelled internationally in the last 10 days??No ?Have you been exposed to COVID-19 in the past??No ???:? The patient, a 69-year-old male, presented with [...] injections every few months, possibly Lupron. * ROS:?General/Constitutional:?pain?Controlled with current pain medication.?Chills?denies.?Admits?Fatigue,?admits.?Fever?denies.?ENT:?Decreased hearing?denies.?Respiratory:?Cough?denies.?Cardiovascular:?Chest pain with exertion?denies.?Dyspnea on exertion?denies.?Shortness of breath?denies.?Gastrointestinal:?Constipation?occasional.?Decreased appetite?denies.?Admits?Diarrhea,?denies.?Heartburn?denies.?Nausea?denies.?Recta l bleeding?denies.?Vomiting?denies.?Hematology:?bruising?denies.?petechiae?denies.?Swollen glands?none have been noted.?Genitourinary:?Frequent urination?denies.?Musculoskeletal:?Muscle aches?denies.?Painful joints?denies.?Sciatica?denies.?Weakness?denies.?Skin:?Itching?denies.?Rash?denies.?Skin lesion(s)?denies.?Neurologic:?Difficulty speaking?denies.?Dizziness?denies.?Headache?denies.?Low back pain?denies.?Psychiatric:?Depressed mood?which is mild.? * Medical History:? * Surgical History:?biopsy of prostate 2006radical prostatectomy 2008Prostate removal surgery 18 years ago * Hospitalization/Major Diagno stic Procedure:?Shortness of breath 01/2020Shortness of breath 04/2020No history * Family History:?Father: dece ased 81 yrs, [...] single and working. He was born in [place], [place]. He does not drink or smoke. 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 He enjoys [employer]. He has one daughter. * Medications:?TakingoxyCODONE HCl [...] All ergyno[Allergies Verified] Objective: * Vitals:?Ht: 74, Wt:206, BMI: 26.45, BP:136/74, HR:75, Temp:97.3, Ht-cm: 187.96, Wt-k.44. * Examination: ???General Examination: ?GENERAL APPEARANCE:?pleasant, well nourished, well developed, in no acute distress, calm and relaxed, overweight, man.?HEAD:?atraumatic, normocephalic.?EYES:?eomi, perrla, anicteric, conjugate.?EARS:?normal.?NOSE:?septum intact.?ORAL CAVITY:?normal, unremarkable.?NECK/THYROID:?no jugular venous distention, no carotid bruit, thyroid normal.?LYMPH NODES:?no enlarged lymph nodes,spleen normal.?SKIN:?no suspicious lesions, anicteric.?HEART:?no clicks, gallops, murmurs, or rubs, regular rhythm, S1, S2 normal, no s3, or vascular bruits.?LUNGS:?clear to auscultation, good air movement, no wheezes, rales, rhonchi.?BREASTS:??no masses palpable bilaterally.?ABDOMEN:?bowel sounds normal, no ascites, no organomegaly, no mass, overweight.?RECTAL EXAM:?not examined.?MUSCULOSKELETAL:?extremities unremarkable, no clubbing, cyanosis or edema.?PERIPHERAL PULSES:?normal.?NEUROLOGIC:?alert and oriented, cranial nerves 2-12 grossly intact, deep tendon reflexes 2+ symmetrical, motor strength normal upper and lower extremities, sensory exam intact.?PSYCH:?alert, oriented, anxious appearing, mood depressed.? Assessment: * Assessment: 1.?Prostate cancer - C61 (Pr imary)???Notes :He has begun a new regimen of leuprolide and docetaxel and darolutamide. His PSA is low and likely not a reliable way to follow malignancy. He is being treated by medical oncology at [facility].? His review of symptoms and tolerating his treatment well.? We have requested the records.???2.?Overweight - E66.3???Notes :His weight has been stable.? He reports a good appetite. He says he is eating well.He is very slightly overweight.? We agreed to stabilize his weight at this level.???3.?UTI symptoms - R39.9???Notes :He will have a urine analysis and urine culture.???4.?Incontinence - R32???Notes :He continues to have intermittent incontinence of urine. He has adapted to this and is unimpaired and daily living.???5.?Osteopenia - M85.80???Notes :He will continue on his current regimen. He will be followed for osteoporosis. He is at risk due to a low testosterone. I recommended 500 mg of calcium twice a day with vitamin D.???6.?Skin cancer, basal cell - C44.91???Notes :There is no sign of any new skin cancer.???7.?Benign prostatic hypertrophy - N40.0???Notes :He rises from sleep once or twice a night to urinate. He is occasionally incontinent. We discussed lifestyle modifications way to reduce nocturia.??? Plan: * Treatment: 2.?UTI symptoms?LAB: URINALYSIS (UA) ?LAB: Urine Culture * Procedure Codes:? * Preventive Medicine:? ??Counseling:?Care goal follow-up plan:?Counseling for abnormal BMI given?Yes ?Above Normal BMI Follow-up?Dietary needs education * Follow Up:?3 Months (Reason: OV) * Images: * Sign off status: Completed true * Provider:?Wilfred Maynard MD Date:?11/2023 Generated for Eberi ng/Dennis/eTransmitting on:?08/29/2024 09:18 AM EST History and Physical Notes * HPI (History of Present Illness) Category Sub-Category Detail Notes COVID-19 Screening Questions Have you had any new onset fever, chills, cough, congestion, sore throat, shortness of breath, muscle aches?: No Have you been exposed to the virus withi n the last 10 days?: No Have you travelled internationally in e last 10 days?: No Have you been [...]
--- OUTSIDE RECORDS SUMMARY | 2024-08-29 09:19 | XMS_ITS | Patient Health Record ---
Author Organization [facility] Address [address] [place] [address] Care Team Providers Care Professional Application Designer Name Role Phone Gadiel Tripp Primary Care Provider Unavailab Wilfred Hyde Unavailable [phone] ALLERGIES No Known Allergies REASON FOR REFERRAL No Information MEDICATIONS Medication SIG (Take, Route, Frequency, Duration) Notes Start Date End Date Status Omeprazole 20 MG 1 capsule Orally Once a day Not-Taking Percocet 5-325 MG 1 tablet as needed Orally every 6 hrs once or twice a day Active oxyCODONE-Acetaminoph en 5-325 MG TAKE 1 TABLET BY MOUTH TWICE DAILY Diagnosis Unavailable Oral for 30 Active Amoxicillin 500 MG TAKE ONE CAPSULE BY MOUTH THREE TIMES DAILY Oral for 10 Active amLODIPine Besylate 2.5 MG TAKE 2 TABLETS BY MOUTH DAILY Oral for 90 Active Escitalopram Oxalate 10 MG TAKE 1 TABLET BY MOUTH DAILY Diagnosis Unavailable Oral for 30 Active Testosterone 30 MG/ACT 1 pump to skin in the morning Transdermal Once a day Not-Taking Omeprazole 40 MG TAKE 1 CAPSULE BY MOUTH EVERY MORNING for 30 Active predniSONE 20 MG Oral for 10 N ot-Taking IMMUNIZATIONS Vaccine Route Administration Date Status Comme nts Influenza Unknown 06/08/2018 Administered SOCIAL HISTORY Tobacco Use: Social History Observation Description Date Details (start date - stop date) Never Smoker NA - NA Sex Assigned At : Social History Observation Description Sex Assigned At Unknown Tobacco Use/Smoking Question Answer Notes Patient is a nonsmoker PROBLEMS Problem Type ICD Code Onset Dates Problem Status W/U Status Risk SNOMED Code Notes Problem Encounter for screening for malignant neoplasm of colon (Z12.11) Active confirmed 845897056 Problem History of adenomatous polyp of colon (Z86.010) Active confirmed 048104246 Problem Weight loss (R63.4) Active confirmed 62417374 Problem Anorexia (R63.0) Active confirmed 48076589 Problem Erosive esophagitis (K22.10) Active confirmed Erosive esophag itis (02798263) Problem GERD (gastroesophage al reflux disease) (K21.9) Active confirmed Gastroesophagea l reflux disease (077597701) Problem Pre-procedural examination (Z01.818) Active confirmed [id number] 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 60846435 Encounters Encounter Location Date Provider Diagnosis [facility] [address] [place] [address] 10/27/2023 Wilfred Manley PLAN OF TREATMENT Future Test Test Name Order Date UPPER GI ENDOSCOPY 07/27/2012 COLONOSCOPY 07/27/2012 COLONOSCOPY 01/20/2019 Insurance Providers Payer Name Payer Address Payer Phone Subscriber Number Group Number Insured Name Patient Relationship to Insured Coverage Start Date Coverage End Date MEDICARE OF [place] [address] [place] [id number] [id number] MORGAN WEBER Self - patient is the insured MEDICAID OF [facility] [employer] [address] [place] [address] [id number] MORGAN WEBER Self - patient is the insured MEDICAL (GENERAL) HISTORY Medical History History ICD Code Hx of tubular adenoma & hyperplastic hannah yps removed in 04/2007 GERD-EGD in 1998 with a HH-no Hamilton's Prostate cancer with mets to right ribs-Rx'd with Lupron; previously Rx'd with surgery and XRT Asthma Denies [place],DM,CVA,renal disease Colonoscopy in 08/2012 neg. for polyps EGD in 08/2012 with small HH and reflux e sophagitis-no Hamilton's Hospitalized in January of 2023 for upper GI bleeding, dysphagia, and some pain along the right lower ribs. An upper endoscopy at that time revealed significant erosive esophagitis. 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
--- OUTSIDE RECORDS SUMMARY | 2024-08-29 09:19 | XMS_ITS ---
Author Organization [facility] Address [address] [place] [address] Care Team Providers Care Contract Clerk Name Role Phone Gadiel Tripp Primary Care Provider Unavailab Wilfred Hyde Unavailable [phone] ALLERGIES No Known Allergies REASON FOR VISIT Patient presents today for esophagitis MEDICATIONS Medication SIG (Take, Route, Frequency, Duration) Notes Start Date End Date Status Testosterone 30 MG/ACT 1 pump to skin in the morning Transdermal Once a day Not-Taking predniSONE 20 MG Oral for 10 N ot-Taking Omeprazole 40 MG 1 Orally Every morning for 30 day(s) 03/29/2023 Active oxyCODONE-Acetaminoph en 5-325 MG TAKE 1 TABLET BY MOUTH TWICE DAILY Diagnosis Unavailable Oral for 30 Active Amoxicillin 500 MG TAKE ONE CAPSULE BY MOUTH THREE TIMES DAILY Oral for 10 Active amLODIPine Besylate 2.5 MG TAKE 2 TABLETS BY MOUTH DAILY Oral for 90 Active Escitalopram Oxalate 10 MG TAKE 1 TABLET BY MOUTH DAILY Diagnosis Unavailable Oral for 30 Active Omeprazole 20 MG 1 capsule Orally Once a day Not-Taking Percocet 5-325 MG 1 tablet as needed Orally every 6 hrs once or twice a day Active SOCIAL HISTORY Tobacco Use: Social History Observation Description Date Details (start date - stop date) Never Smoker NA - NA Sex Assigned At : Social History Observation Description Sex Assigned At Unknown Tobacco Use/Smoking Question Answer Notes Patient is a nonsmoker PROBLEMS Problem Type ICD Code Onset Dates Problem Status W/U Status Risk SNOMED Code Notes 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 85731776 Problem Anorexia (R63.0) Active confirmed 15550607 Problem Weight loss (R63.4) Active confirmed 33932349 VITAL SIGNS BMI 21.30 kg/m2 04/13/2023 Blood pressure systolic 000 mm Hg 04/13/20 23 Blood pressure diastolic 00 mm Hg 023 Height 76 in 04/13/2023 Temperature 97.3 degrees Fahrenheit 04/13/20 23 Weight 175 lbs 04/13/2023 Encounters Encounter Location Date Provider Diagnosis [facility] [address] [place] [address] 04/13/2023 Wilfred Manley Erosive esophagitis K22.10 ; Chilaiditi's syndrome Q43.3 ; Anorexia R63.0 and Weight loss R63.4 ASSESSMENTS Encounter Date Diagnosis Assessment Notes Treatment Notes Treatment Clinical Notes 04/13/2023 Erosive esophagitis (ICD-10 - K22.10) 04/13/2023 Chilaiditi's syndrome (ICD-10 - Q43.3) 04/13/2023 Anorexia (ICD-10 - R63.0) 04/13/2023 Weight loss (ICD-10 - R63.4) 04/13/2023 Other Call me with an y worsening abdominal pains or stomach symptoms. PLAN OF TREATMENT Treatment Notes Assessment Notes Other Call me with any wor sening abdominal pains or stomach symptoms. Next Appt Details Follow Up: prn, Reason: Progress Notes * Examination Category Sub-Category Detail Notes General Examination GENERAL APPEARANCE: pleasant , well nourished, well developed, in no acute distress EYES: sclera non-icteric NECK/THYROID: no cervical lymphade nopathy, neck supple HEART: S1, S2 normal LUNGS: clear to auscultatio n bilaterally ABDOMEN: normal bowel sounds, no guarding or rigidity, no hepatosplenomegaly, no masses palpable, soft, nontender, nondistended. NEUROLOGIC: alert and oriented SKIN: nonjaundiced, no spi dejuan angiomata. EXTREMITIES: no edema ORAL CAVITY: mucosa moist
--- OUTSIDE RECORDS SUMMARY | 2024-08-29 09:19 | XMS_ITS | Patient Health Record ---
Author Organization Wilfred Maynard III, MD Address [address] [place] [address] Care Team Providers Care Contact Representative Name Role Phone PREETI HDEZ Primary Care Provider Unavailab Wilfred Marroquin Unavailable [phone] Allergies Allergen (clinical drug ingredient) Drug/Non Drug Allergy documented on EMR Reaction Allergy Type Onset Date Status No Known Drug Allergy Unknown Drug Allergy Active Results Component Value Reference Range Notes Urine Culture Reviewed date:08/23/2024 08:18:58 AM Interpretation: Performing Lab:[facility], [address] [place] [phone] Notes/Report: O:PROMIR Proteus mirabilis Urine Culture Quant Urine Culture 10,000 to 50,000 cfu/mL Ampicillin <=2 Cefazolin <=4 Ceftriaxone <=0.25 Ciprofloxacin <=0.25 Gentamicin <=1 Nitrofurantoin 128 Trimethoprim/Sulfamethoxaz ole <=20 Complete Blood Count Auto Di ff Reviewed date:11/24/2023 05:47:23 AM Interpretation: Performing Lab:[facility], [address] [place] [phone] Notes/Report: CC DR WAYNE White Blood Count 6.7 4.8-10.8 X10*3/uL Red Blood Count 4.36 4.60-5.80 X10*6/uL Hemoglobin 13.4 14.0-18.0 g/dl Hematocrit 40.2 42.0-52.0 % Mean Corpuscular Volume 92.2 80.0-98.0 fL Mean Corpuscular Hemoglobin 30.7 27.0-33.0 pg Mean Corpuscular HGB Conc 33.3 31.0-36.0 g/dl Red Cell Distribution Width 13.7 11.0-16.0 % Platelet Count 225 160-400 X10*3/uL Mean Platelet Volume 9.8 9.4-12.4 fL Neutrophils Percent Auto 69.5 45-73 % Imm Gran Pct Auto 0.3 0.0-0.4 % Lymphocytes Percent Auto 19.6 20-40 % Monocytes Percent Auto 7.4 2-11 % Eosinophils Percent Auto 2.8 0-4 % Basophils Percent Auto 0.4 0-2 % NRBC Pct Auto 0.0 0.0-0.2 /100WBC Neutrophils Absolute Auto 4.7 2.0-8.3 x10*3/u L Imm Gran Abs Auto 0.02 0.00-0.03 X10*3/uL Lymphocytes Absolute Auto 1.3 1.2-4.9 X10*3/u L Monocytes Absolute Auto 0.5 0.1-1.2 X10*3/uL Eosinophils Absolute Auto 0.2 0.0-0.4 X10*3/u L Basophils Absolute Auto 0.0 0.0-0.2 X10*3/uL NRBC Abs Auto 0.000 0.0-0.012 X10*3/uL Comprehensive Met. Panel Reviewed date:11/24/2023 05:47:23 AM Interpretation: Performing Lab:[facility], [address] [place] [phone] Notes/Report: CC DR WAYNE Sodium 142 135-145 mmol/L Potassium 3.6 3.3-5.1 mmol/L Chloride 107 96-108 mmol/L Carbon Dioxide 24 22-29 mmol/L Anion Gap 15 12-20 Blood Urea Nitrogen 16 9-16 mg/dL Creatinine 0.73 0.5-1.4 mg/dL Estimated Glomerular Filt Rate > 60 NOTE: For -[place] individuals, multiply the result by 1.210. Chronic Kidney Disease: Estimated GFR < 60 mL/min/1.73m2 Severe Kidney Disease: Estimated GFR < 15 mL/min/1.73m2 Glucose Random 104 60-115 mg/dL Calcium 9.2 8.4-10.2 mg/dL Bilirubin Total 0.3 0.0-1.0 mg/dL Aspartate Amino Transferase 16 5-37 U/L Alanine Aminotransferase 16 0-40 U/L Total Protein 7.6 6.5-8.0 g/dL Albumin Level 4.1 3.5-5.0 g/dL Alkaline Phosphatase 146 39-117 U/L Prostate Specific Antigen Reviewed date:11/24/2023 05:47:23 AM Interpretation: Performing Lab:[facility], [address] [place] [phone] Notes/Report: CC DR WAYNE Prostate Specific Antigen 0.70 <0.05-4.0 ng/mL PSA methodology: Flexenclosure Alinity i Chemiluminescent Microparticle Immunoassay (CMIA) Complete Blood Count Auto Di ff Reviewed date:01/26/2024 09:40:36 AM Interpretation: Performing Lab:[facility], [address] [place] [phone] Notes/Report: White Blood Count 7.4 4.8-10.8 X10*3/uL Red Blood Count 4.53 4.60-5.80 X10*6/uL Hemoglobin 13.8 14.0-18.0 g/dl Hematocrit 41.4 42.0-52.0 % Mean Corpuscular Volume 91.4 80.0-98.0 fL Mean Corpuscular Hemoglobin 30.5 27.0-33.0 pg Mean Corpuscular HGB Conc 33.3 31.0-36.0 g/dl Red Cell Distribution Width 13.6 11.0-16.0 % Platelet Count 239 160-400 X10*3/uL Mean Platelet Volume 9.4 9.4-12.4 fL Neutrophils Percent Auto 71.2 45-73 % Imm Gran Pct Auto 0.3 0.0-0.4 % Lymphocytes Percent Auto 17.4 20-40 % Monocytes Percent Auto 8.8 2-11 % Eosinophils Percent Auto 2.0 0-4 % Basophils Percent Auto 0.3 0-2 % NRBC Pct Auto 0.0 0.0-0.2 /100WBC Neutrophils Absolute Auto 5.3 2.0-8.3 x10*3/u L Imm Gran Abs Auto 0.02 0.00-0.03 X10*3/uL Lymphocytes Absolute Auto 1.3 1.2-4.9 X10*3/u L Monocytes Absolute Auto 0.7 0.1-1.2 X10*3/uL Eosinophils Absolute Auto 0.2 0.0-0.4 X10*3/u L Basophils Absolute Auto 0.0 0.0-0.2 X10*3/uL NRBC Abs Auto 0.000 0.0-0.012 X10*3/uL Comprehensive Met. Panel Reviewed date:01/26/2024 09:40:36 AM Interpretation: Performing Lab:[facility], [address] [place] [phone] Notes/Report: Sodium 141 135-145 mmol/L Potassium 4.1 3.3-5.1 mmol/L Chloride 106 96-108 mmol/L Carbon Dioxide 25 22-29 mmol/L Anion Gap 14 12-20 Blood Urea Nitrogen 17 9-16 mg/dL Creatinine 0.72 0.5-1.4 mg/dL Estimated Glomerular Filt Rate > 60 NOTE: For -Ethiopian individuals, multiply the result by 1.210. Chronic Kidney Disease: Estimated GFR < 60 mL/min/1.73m2 Severe Kidney Disease: Estimated GFR < 15 mL/min/1.73m2 Glucose Random 116 60-115 mg/dL Calcium 9.2 8.4-10.2 mg/dL Bilirubin Total 0.4 0.0-1.0 mg/dL Aspartate Amino Transferase 16 5-37 U/L Alanine Aminotransferase 17 0-40 U/L Total Protein 7.8 6.5-8.0 g/dL Albumin Level 4.2 3.5-5.0 g/dL Alkaline Phosphatase 158 39-117 U/L Prostate Specific Antigen Reviewed date:01/26/2024 09:40:36 AM Interpretation: Performing Lab:[facility], [address] [place] [phone] Notes/Report: Prostate Specific Antigen 1.14 <0.05-4.0 ng/mL PSA methodology: [place] Alinity i Chemiluminescent Microparticle Immunoassay (CMIA) Complete Blood Count Auto Di ff Reviewed date:03/29/2024 01:07:05 PM Interpretation: Performing Lab:[facility], [address] [place] [phone] Notes/Report: White Blood Count 6.7 4.8-10.8 X10*3/uL Red Blood Count 4.16 4.60-5.80 X10*6/uL Hemoglobin 12.7 14.0-18.0 g/dl Hematocrit 38.7 42.0-52.0 % Mean Corpuscular Volume 93.0 80.0-98.0 fL Mean Corpuscular Hemoglobin 30.5 27.0-33.0 pg Mean Corpuscular HGB Conc 32.8 31.0-36.0 g/dl Red Cell Distribution Width 16.4 11.0-16.0 % Platelet Count 211 160-400 X10*3/uL Mean Platelet Volume 10.5 9.4-12.4 fL Neutrophils Percent Auto 62.2 45-73 % Imm Gran Pct Auto 1.2 0.0-0.4 % Lymphocytes Percent Auto 25.1 20-40 % Monocytes Percent Auto 8.6 2-11 % Eosinophils Percent Auto 2.4 0-4 % Basophils Percent Auto 0.5 0-2 % NRBC Pct Auto 0.0 0.0-0.2 /100WBC Neutrophils Absolute Auto 4.1 2.0-8.3 x10*3/u L Imm Gran Abs Auto 0.08 0.00-0.03 X10*3/uL Lymphocytes Absolute Auto 1.7 1.2-4.9 X10*3/u L Monocytes Absolute Auto 0.6 0.1-1.2 X10*3/uL Eosinophils Absolute Auto 0.2 0.0-0.4 X10*3/u L Basophils Absolute Auto 0.0 0.0-0.2 X10*3/uL NRBC Abs Auto 0.000 0.0-0.012 X10*3/uL Comprehensive Met. Panel Reviewed date:03/29/2024 01:05:31 PM Interpretation: Performing Lab:[facility], [address] [place] [phone] Notes/Report: Sodium 141 135-145 mmol/L Potassium 3.9 3.3-5.1 mmol/L Chloride 105 96-108 mmol/L Carbon Dioxide 28 22-29 mmol/L Anion Gap 12 12-20 Blood Urea Nitrogen 18 9-16 mg/dL Creatinine 0.72 0.5-1.4 mg/dL Estimated Glomerular Filt Rate > 60 NOTE: For -Ethiopian individuals, multiply the result by 1.210. Chronic Kidney Disease: Estimated GFR < 60 mL/min/1.73m2 Severe Kidney Disease: Estimated GFR < 15 mL/min/1.73m2 Glucose Random 85 60-115 mg/dL Calcium 9.5 8.4-10.2 mg/dL Bilirubin Total 0.3 0.0-1.0 mg/dL Aspartate Amino Transferase 17 5-37 U/L Alanine Aminotransferase 22 0-40 U/L Total Protein 6.9 6.5-8.0 g/dL Albumin Level 3.8 3.5-5.0 g/dL Alkaline Phosphatase 99 39-117 U/L Prostate Specific Antigen Reviewed date:03/29/2024 01:07:05 PM Interpretation: Performing Lab:[address] [phone] Notes/Report: Prostate Specific Antigen 0.47 <0.05-4.0 ng/mL PSA methodology: [place] Alinity i Chemiluminescent Microparticle Immunoassay (CMIA) Testosterone, Total Reviewed date:04/03/2024 02:15:07 PM Interpretation: Performing Lab:[address] [phone] Notes/Report: Testosterone, Total 26 250-1100 ng/dL Men with clinically significant hypogonadal symptoms and testosterone values repeatedly in the range of the 200-300 ng/dL or less, may benefit from testosterone treatment after adequate risk and benefits counseling. For additional information, please refer to http://education.[employer]TAG Interactive/faq/ TotalTestosteroneMS [email or web address] (This link is being provided for informational/ educational purposes only.) This test was developed and its analytical performance characteristics have been determined by [employer] [place], [place]. It has not been cleared or approved by the U.S. Food and Drug Administration. This assay has been validated pursuant to the CLIA regulations and is used for clinical purposes. THIS TEST WAS PERFORMED AT: [facility]/[address] [address] LAURA CASILLAS MD,PHD Urinalysis and Microscopic Reviewed date:08/23/2024 08:18:58 AM Interpretation: Performing Lab:[address] [phone] Notes/Report: Color Urine Yellow Appearance Urine Clear PH 6.0 5.0-9.0 Glucose Urine UA Negative Negative mg/dL Urine Blood Negative Negative Specific [place] - Urine 1.015 1.005-1.025 Urine Protein Negative Neg-Trace mg/dL Urine Ketones Negative Negative mg/dL Nitrite Urine Negative Negative Leukocyte Esterase Urine Trace Negative RBC Urine 0-2 0-2 /HPF WBC Urine 11-20 0-5 /HPF Squamous Epithelial Cell Urine 0-2 0-2 /HPF Bacteria Urine None Seen None Seen Hyaline Casts Urine 0-2 0-2 /LPF Reason For Referral Reason Aggressive Prostate Cancer Treatment of Palliative per [facility] every 3 weeks for 6 cycles Diagnosis 1 Prostate cancer (C61 ) Referral Organization Wilfred Maynadr III, MD Referring Provider First Name Wilfred Referring Provider Last Name Aleyda Referring Provider Speciality Internal M edicine Referred Provider [facility] Referred Provider Specialty Medical Onco logy [...] MRI, CT, progress note and referral to [facility], Anna Tello 02/29/2024 03:08:35 PM EDT > Received fax from [facility] patient is scheduled to be seen with Dr. Hooper on 03/16/24 @ 1pm. Patient is aware Referral Priority Routine Referral Appointment Date 03/16/2024 Medications Medication SIG (Take, Route, Frequency, Duration) Notes Start Date End Date Status Escitalopram Oxalate 10 MG TAKE 1 TABLET BY MOUTH DAILY Diagnosis Unavailable Oral for depression Active Omeprazole 10 MG 1 capsule 30 minutes before morning meal Orally Once a day Active amLODIPine Besylate 2.5 MG 1 tablet Orally Once a day Active oxyCODONE HCl 5 MG take 1 tablet by mouth every 6 hours Oral Active Vitamin D3 25 MCG (1000 UT) TAKE 1 TABLET BY MOUTH EVERY DAY for 90 Active Social History Tobacco Use: Social History Observation Description Date Details (start date - stop date) Never Smoker NA - NA Sex Assigned At : Social History Observation Description Sex Assigned At Male Tobacco Use/Smoking Question Answer Notes Patient is a nonsmoker Additional Findings: Tobacco Non-User Aggressive non-smoker Alcohol Screen Question Answer Notes Did you have a drink containing alcohol in the p ast year? No Points 0 Interpretation Negative Problems Problem Type SNOMED Code ICD Code Onset Dates Problem Status W/U Status Risk Notes Problem Overweight (893926802) Overweight (E66.3) Active confirmed His weight has been stable. He reports a good appetite. He says he is eating well.He is very slightly overweight. We agreed to stabilize his weight at this level. Problem 81651576 Hyperglycemia (R73.9) Active confirmed Most recent glucose is 116. This will be followed carefully. A hemoglobin A1c will be ordered. Problem 473207102 Prostate cancer (C61) Active confirmed He has begun a new regimen of leuprolide and docetaxel and darolutamide. His PSA is low and likely not a reliable way to follow malignancy. He is being treated by medical oncology at [facility]. His review of symptoms and tolerating his treatment well. We have requested the records. Problem Vitamin D deficiency (87735082) Vitamin D deficiency, unspecified (E55.9) Active confirmed He was continued on vitamin D. He is known to have osteopenia. Problem 851298383 Skin cancer, basal cell (C44.91) Active confirmed There is no sign of any new skin cancer. Problem 84189937 Incontinence (R32) Active confirmed He continues to have intermittent incontinence of urine. He has adapted to this and is unimpaired and daily living. Problem 151070054 Osteopenia (M85.80) Active confirmed He will continue on his current regimen. He will be followed for osteoporosis. He is at risk due to a low testosterone. I recommended 500 mg of calcium twice a day with vitamin D. Problem 009246057 Benign prostatic hypertrophy (N40.0) Active confirmed He rises from sleep once or twice a night to urinate. He is occasionally incontinent. We discussed lifestyle modifications way to reduce nocturia. Problem 40998712 Reactive depression (F32.9) Active confirmed He will need to be restaged. We [...] of medical oncology and prostate cancer management. Vital Signs Heart Rate 75 /min 06/02/2024 Temperature 97.3 degrees Fahrenheit 06/02/2024 Blood pressure diastolic 74 mm Hg 06/02/2024 Height 74 in 06/02/2024 Blood pressure systolic 136 mm Hg 06/02/2024 Weight 206 lbs 06/02/2024 BMI 26.45 kg/m2 06/02/2024 Encounters Encounter Location Date Provider Diagnosis Wilfred Maynard III, MD [address] [place] [address] [place] [phone] 11/24/2023 Wilfred Maynard Overweight E66.3 ; Prostate cancer C61 and Benign prostatic hypertrophy N40.0 Wilfred Maynard III, MD [address] [place] [address] [place] [address] 01/26/2024 Wilfred Maynard Overweight E66.3 ; S kin cancer, basal cell C44.91 ; Prostate cancer C61 ; Incontinence R32 ; Osteopenia M85.80 and Benign prostatic hypertrophy N40.0 Wilfred Maynard III, MD [address] [place] [address] [place] [address] 02/11/2024 Wilfred Maynard Overweight E66.3 ; Prostate cancer C61 ; Skin cancer, basal cell C44.91 ; Incontinence R32 ; Osteopenia M85.80 ; Benign prostatic hypertrophy N40.0 ; Reactive depression F32.9 and Vitamin D deficiency, unspecified E55.9 Wilfred Maynard III, MD [address] [place] [address] [place] [address] 02/25/2024 Wilfred Maynard Overweight E66.3 ; Prostate cancer C61 ; Benign prostatic hypertrophy N40.0 ; Osteopenia M85.80 ; Incontinence R32 ; Skin cancer, basal cell C44.91 and Reactive depression F32.9 Wilfred Maynard III, MD [address] [place] [address] [place] [address] 03/10/2024 Wilfred Maynard Overweight E66.3 ; Prostate cancer C61 ; Hyperglycemia R73.9 ; Osteopenia M85.80 ; Incontinence R32 and Vitamin D deficiency, unspecified E55.9 Wilfred Maynard III, MD [address] [place] [address] [place] [address] 03/31/2024 Wilfred Maynard Overweight E66.3 ; Prostate cancer C61 ; Osteopenia M85.80 ; Benign prostatic hypertrophy N40.0 and Reactive depression F32.9 Wilfred Maynard III, MD [address] [place] [address] [place] [address] 06/02/2024 Wilfred Maynard Overweight E66.3 ; Prostate cancer C61 ; UTI symptoms R39.9 ; Incontinence R32 ; Osteopenia M85.80 ; Skin cancer, basal cell C44.91 and Benign prostatic hypertrophy N40.0 Wilfred Maynard III, MD [address] [place] [address] [place] [address] 08/31/2023 Wilfred Maynard III, MD [address] [place] [address] [place] [address] 10/13/2023 Wilfred Maynard III, MD [address] [place] [address] [place] [address] 02/10/2024 Wilfred Maynard III, MD [address] [place] [address] [place] [address] 02/15/2024 Wilfred Maynard III, MD [address] [place] [address] [place] [address] 02/17/2024 Wilfred Maynard Assessments Encounter Date Diagnosis (ICD Code) Assessment Notes Treat ment Notes Treatment Clinical Notes 11/24/2023 Overweight (ICD-10 - E66.3) His body mass index is 26. 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 We discussed his weight was G. We made a plan to lose weight at a rate of a half a pound a week through a diet restricted in fat calories and sodium combined with regular physical activity. 11/24/2023 Prostate cancer (ICD-10 - C61) Is asymptomatic. His PSA is 0.7. It is rising very slowly. Current therapy was continuued. 01/26/2024 Overweight (ICD-10 - E66.3) His body mass index is 24. We discussed his diet. 01/26/2024 Skin cancer, basal cell (ICD-10 - C44.91) There is no sign of any new skin cancer. 02/11/2024 Overweight (ICD-10 - E66.3) His weight is currently stable. 02/11/2024 Prostate cancer (ICD-10 - C61) He has experienced disease progression in the proximal rib along the thoracic spine with invasion of the bone and compression of a nerve root. The tumor is beginning to compress the thecal sac but the spinal cord is unaffected at this time. There is no muscle weakness. He will see radiation therapy urology and resume androgen deprivation therapy with bicalutamide. He will be referred back to medical oncology for chemotherapy if he proves to be castrate resistant. A PSA is pending. A testosterone level is pending. 02/25/2024 Overweight (ICD-10 - E66.3) His weight is currently stable. Body mass index is 25. 02/25/2024 Prostate cancer (ICD-10 - C61) He is doing well controlled for many years with hormone deprivation. The disease has become aggressive. Dr. Nur at [facility] has kknown him formay years and recommended paclitaxel Q21 days for 6 cycles in addition to degarelix and darolutamide. . 03/10/2024 Overweight (ICD-10 - E66.3) He has [...] a reliable way to follow malignancy. 03/31/2024 Overweight (ICD-10 - E66.3) He has [...] not a reliable way to follow malignancy. 06/02/2024 Overweight (ICD-10 - E66.3) His weight [...] is being treated by medical oncology at [facility]. His review of symptoms and tolerating his treatment well. We have requested the records. 11/24/2023 Benign prostatic hypertrophy (ICD-10 - N40.0) He rises from sleep once or twice a night to urinate. He is occasionally incontinent. We discussed lifestyle modifications way to reduce nocturia. 01/26/2024 Prostate cancer (ICD-10 - C61) He is asymptomatic. His PSA is slowly rising. His urologist has continued him on intermittent androgen deprivation therapy. 02/11/2024 Skin cancer, basal cell (ICD-10 - C44.91) There is no sign of any new skin cancer. 02/25/2024 Benign prostatic hypertrophy (ICD-10 - N40.0) He rises from sleep once or twice a night to urinate. He is occasionally incontinent. We discussed lifestyle modifications way to reduce nocturia. 03/10/2024 Hyperglycemia (ICD-10 - R73.9) Most recent glucose is 116. This will be followed carefully. A hemoglobin A1c will be ordered. 03/31/2024 Osteopenia (ICD-10 - M85.80) He will continue on his current regimen. He will be followed for osteoporosis. He is at risk due to a low testosterone. I recommended 500 mg of calcium twice a day with vitamin D. 06/02/2024 UTI symptoms (ICD-10 - R39.9) He will have a urine analysis and urine culture. 01/26/2024 Incontinence (ICD-10 - R32) He continues to have intermittent incontinence of urine. He has adapted to this and is unimpaired and daily living. 02/11/2024 Incontinence (ICD-10 - R32) He continues to have intermittent incontinence of urine. He has adapted to this and is unimpaired and daily living. 02/25/2024 Osteopenia (ICD-10 - M85.80) He will continue on his current regimen. 03/10/2024 Osteopenia (ICD-10 - M85.80) He will [...] discussed lifestyle modifications way to reduce nocturia. 06/02/2024 Incontinence (ICD-10 - R32) He continues to have intermittent incontinence of urine. He has adapted to this and is unimpaired and daily living. 01/26/2024 Osteopenia (ICD-10 - M85.80) He will continue on his current regimen. 02/11/2024 Osteopenia (ICD-10 - M85.80) He will continue on his current regimen. 02/25/2024 Incontinence (ICD-10 - R32) He continues to have intermittent incontinence of urine. He has adapted to this and is unimpaired and daily living. 03/10/2024 Incontinence (ICD-10 - R32) He continues to have intermittent incontinence of urine. He has adapted to this and is unimpaired and daily living. 03/31/2024 Reactive depression (ICD-10 - F32.9) He [...] of medical oncology and prostate cancer management. 06/02/2024 Osteopenia (ICD-10 - M85.80) He will continue on his current regimen. He will be followed for osteoporosis. He is at risk due to a low testosterone. I recommended 500 mg of calcium twice a day with vitamin D. 01/26/2024 Benign prostatic hypertrophy (ICD-10 - N40.0) He rises from sleep once or twice a night to urinate. He is occasionally incontinent. We discussed lifestyle modifications way to reduce nocturia. 02/11/2024 Benign prostatic hypertrophy (ICD-10 - N40.0) He rises from sleep once or twice a night to urinate. He is occasionally incontinent. We discussed lifestyle modifications way to reduce nocturia. 02/25/2024 Skin cancer, basal cell (ICD-10 - C44.91) There is no sign of any new skin cancer. 03/10/2024 Vitamin D deficiency, unspecified (ICD-10 - E55.9) He was continued on vitamin D. He is known to have osteopenia. 06/02/2024 Skin cancer, basal cell (ICD-10 - C44.91) There is no sign of any new skin cancer. 02/11/2024 Reactive depression (ICD-10 - F32.9) He will [...] of medical oncology and prostate cancer management. 02/25/2024 Reactive depression (ICD-10 - F32.9) He [...] of medical oncology and prostate cancer management. 06/02/2024 Benign prostatic hypertrophy (ICD-10 - N40.0) He rises from sleep once or twice a night to urinate. He is occasionally incontinent. We discussed lifestyle modifications way to reduce nocturia. 02/11/2024 Vitamin D deficiency, unspecified (ICD-10 - E55.9) He was continued on vitamin D. He is known to have osteopenia. Plan Of Treatment Pending Test Test Name Order Date PROFILE, FASTING (COMPREHENSIVE METABOLI C) 10/09/2020 PROFILE, FASTING (COMPREHENSIVE METABOLI C) 03/04/2022 PROFILE, FASTING (COMPREHENSIVE METABOLI C) 06/21/2023 PROFILE, FASTING (COMPREHENSIVE METABOLI C) 12/03/2021 PROFILE, FASTING (COMPREHENSIVE METABOLI C) 05/05/2023 PROFILE, RANDOM (COMPREHENSIVE METABOLIC ) 02/22/2020 PROFILE, RANDOM (COMPREHENSIVE METABOLIC ) 08/25/2023 PROFILE, RANDOM (COMPREHENSIVE METABOLIC ) 07/10/2020 PROFILE, RANDOM (COMPREHENSIVE METABOLIC ) 11/24/2019 PROFILE, RANDOM (COMPREHENSIVE METABOLIC ) 04/24/2020 PROFILE, RANDOM (COMPREHENSIVE METABOLIC ) 01/15/2021 PROFILE, RANDOM (COMPREHENSIVE METABOLIC ) 05/19/2023 PROFILE, RANDOM (COMPREHENSIVE METABOLIC ) 12/31/2022 HEMOGLOBIN A1C (GLYCOHEMOGLOBIN) 023 LIPID PANEL 10/09/2020 LIPID PANEL 03/04/2022 LIPID PANEL 11/24/2019 LIPID PANEL 05/05/2023 PSA, TOTAL 05/19/2023 PSA, TOTAL 05/05/2023 PSA, TOTAL 12/31/2022 PSA, TOTAL 02/22/2020 PSA, TOTAL 10/09/2020 PSA, TOTAL 08/25/2023 PSA, TOTAL 07/10/2020 PSA, TOTAL 03/04/2022 PSA, TOTAL 06/21/2023 PSA, TOTAL 12/03/2021 PSA, TOTAL 11/24/2019 PSA, TOTAL 04/24/2020 PSA, TOTAL 01/15/2021 CBC w DIFF 04/24/2020 CBC w DIFF 01/15/2021 CBC w DIFF 05/19/2023 CBC w DIFF 05/05/2023 CBC w DIFF 12/31/2022 CBC w DIFF 02/22/2020 CBC w DIFF 10/09/2020 CBC w DIFF 07/10/2020 CBC w DIFF 03/04/2022 CBC w DIFF 12/03/2021 CBC w DIFF 11/24/2019 SED RATE (ESR) 05/05/2023 URINALYSIS (UA) 06/02/2024 TESTOSTERONE, TOTAL 03/04/2022 TESTOSTERONE, TOTAL 06/29/2022 TESTOSTERONE, TOTAL 07/10/2020 NUC WHOLE BODY SCAN BONE 04/12/2023 XR LUMBAR SPINE 4+ VIEWS 12/31/2022 XR LUMBAR SPINE 4+ VIEWS 12/31/2022 XR RIBS BILATERAL 12/31/2022 XR RIBS BILATERAL 12/31/2022 BONE DENSITY DEXA 12/31/2022 VITAMIN D 25-OH TOTAL 05/05/2023 CBC WITH AUTO DIFF 08/25/2023 CBC WITH AUTO DIFF 06/21/2023 Lipid Panel 06/21/2023 Lipid Panel 12/03/2021 Testosterone, Free/Total 01/15/2021 Next Appt Details Provider Name:Wilfred Maynard, 09/04/2024 10:30:00 AM, [address] [place] [address] DR, [facility], [address], [place], [address], Insurance Providers Payer Name Payer Address Payer Phone Subscriber Number Group Number Insured Name Patient Relationship to Insured Coverage Start Date Coverage End Date MEDICARE NGS [address] [place] [id number] Justin Briceno Self - patient is the insured Medical (General) History Medical History History ICD Code basal cell cancer, chest sebaceous cysts stage IV adenocarcinoma prostate [place] 7 (4+3 ) GERD depression hyperlipidemia osterarthritis left knee 2018 Surgical History Surgery Date(Month/Year) biopsy of prostate 2006 radical prostatectomy 2008 Prostate removal surgery 18 years ago Hospitalization History Reason Date(Month/Year) Shortness of breath 01/2020 Shortness of breath 04/2020 No history
--- OUTSIDE RECORDS SUMMARY | 2024-08-29 09:19 | XMS_ITS ---
Author Organization [facility] Address [address] [place] [address] Care Team Providers Care Director Adult Name Role Phone Gadiel Tripp Primary Care Provider Unavailab Wilfred Hyde Unavailable [phone] REASON FOR VISIT refill request omeprazole/ out of meds Encounters Encounter Location Date Provider Diagnosis [facility] [address] [place] [address] 10/27/2023 Wilfred Manley PLAN OF TREATMENT No Information
--- OUTSIDE RECORDS SUMMARY | 2024-08-29 09:19 | XMS_ITS ---
Author Organization [facility] Address [address] [place] [id number] Care Team Providers Care Tugboat Engineer Name Role Phone Gadiel Tripp Primary Care Provider Unavailab Wilfred Hyde Unavailable [phone] Encounters Encounter Location Date Provider Diagnosis [facility] [address] [place] [id number] 05/01/2023 Wilfred Manley PLAN OF TREATMENT No Information
[2024-08-29 09:23] VITALS: BP 130/70; PULSE 86; O2SAT 100; BMI 24.9
--- NOTE | 2024-08-29 09:23 | MHC.PC.OV ---
Vital Signs 08/29/24 09:23 Height 6 ft 3 in Weight 199 lb 2 oz BMI 24.9 BP 130/70 Blood Pressure Location Lt brachial Position Sitting Pulse 86 Pulse Source Pulse Oximeter Pulse Oximetry (%) 100 Oxygen Delivery Method Room Air Intake Visit Reasons: f/u HTN/ HLD- pain management Pancake Professional Required: No Accompanied by: Self / Same As Patient Allergies [id number] Reductase Inhibitor Adverse Reaction (Intermediate, Verified 08/29/24 09:27) Joint and muscle pain Medication List - Last Reconciled 08/29/24 by Gadiel Tripp PA-C abiraterone 1,000 mg (4 x 250 mg) PO DAILY 30 days amlodipine 5 mg (2 x 2.5 mg) PO DAILY 30 days cholecalciferol (vitamin D3) 25 mcg PO DAILY dexamethasone mg PO escitalopram oxalate 20 mg PO DAILY 30 days omeprazole 40 mg PO DAILY oxycodone 10 mg PO Q4H PRN 28 days sennosides (senna) 17.2 mg (2 x 8.6 mg) PO BEDTIME 15 days tolterodine ER 4 mg PO DAILY 30 days Tobacco use date assessed: 06/26/24 Fall risk assessment: No Falls in past year Last assessed Fall Risk: 08/29/24 Dental Screening Dental Screen Date: 02/28/24 HPI f/u HTN/ HLD- pain management HPI Details Patient is 69 -year-old male here today for follow-up visit. Patient has a past medical history significant for hyperlipidemia, prostate cancer with Mets to rib, hypertension and major depressive disorder. Prostate cancer with metastasis to bone:? INTERVAL HISTORY---> Continues to oncologist and urologist. Most recent PSA were slightly elevated. PET scan showed metastasize lesion on a single rib. thoracic MRI showing-->Extensive enhancing osseous metastatic disease involving the T7, T8, and to a lesser extent the T6 spinal elements as well as the right seventh eighth ribs and right seventh and eighth costovertebral junctions. He is then followed up with radiologist at [facility] though was not a candidate for radiation. He has started chemotherapy at [facility] oncology (Dr. Nur) recommended--> pain management with oxycodone 10 mg every 4 hours as needed, dexamethasone 2 mg in the morning and Tylenol a 1000 TID.. He has finished chemotherapy a few weeks ago. Does have side effects such as fatigue, bilateral lower extremity weakness and pain. He has developed bilateral axillary skin dermatitis to which will try a antifungal/topical steroid cream for. He will be following up with his oncologist this week. .. .. Major depressive disorder: He continues on Lexapro 20 mg with decent affect. Still is somewhat depressed though has been stable He is not interested in establishing with a mental health therapist or psychiatrist at this time. He mentions he would like to start walking again to help him with his mental health [facility] Medical History Pure hypercholesterolemia Benign essential hypertension BRBPR (bright red blood per rectum) Pathologic rib fracture Acute upper gastrointestinal bleeding Annual physical exam Cough Right shoulder pain Prostate cancer Borderline high cholesterol Other forms of dyspnea Achilles tendon pain Hypogonadism in male HTN (hypertension) MDD (major depressive disorder), recurrent episode Anxiety Asthma Prostate cancer metastatic to bone Surgical History H/O endoscopy H/O prostatectomy Family History Father Pneumonia Substance abuse Mother CAD (coronary artery disease) CHF (congestive heart failure) Brother Stomach cancer Substance abuse Sister Breast cancer Substance abuse Social History Household Members: Friend(s) Housing: House Do you presently have visiting nurse or other home services: No Alcohol intake: unknown Patient Tobacco Use Status: Never used Tobacco Years Smoked: 40 yrs e-Cigarette/Vaping Use: Never Used Second Hand Smoke Exposure: No Substance Use Type: Marijuana service: No Current occupational status: unemployed Current occupation: [employer] for himself Cognitive needs: No Hearing needs: No Vision needs: Yes (Pt went to an eye doctor about 4 years ago. ) Questionnaire Thrive Questionnaire Date Thrive assessed: 11/25/23 GABRIELE-7 AMB Questionnaire GABRIELE-7 Date GARBIELE - 7 assessed: 11/25/23 Source: Developed by Drs. Wilfred Obando, Darshana Vaz, Chip Maya and colleagues, with an educational damion from [employer]. Review of Systems Const Reports fatigue, Denies headache(s), Reports lethargy and Reports malaise Eyes Denies loss of vision ENT Denies vertigo, Denies dizziness, Denies headache(s) and Denies sore throat Card Denies chest pain, Denies leg edema and Denies lightheadedness Resp Denies cough, Denies hemoptysis and Denies wheezing GI Denies abdominal pain, Denies melena, Denies constipation, Denies diarrhea and Denies vomiting Denies dysuria, Denies urinary frequency and Denies urinary urgency Musc Details: + lower extremity pain and weakness Denies arthralgias, Denies joint swelling, Reports muscle cramps, Reports muscle weakness, Denies numbness and Denies tingling Neuro Denies Abnormal speech present, Denies behavioral changes, Denies vertigo, Denies dizziness, Denies headache(s), Denies loss of vision, Denies memory loss, Denies numbness and Denies tingling Psych Denies anxiety, Denies behavioral changes, Denies depression, Denies memory loss and Denies panic attacks Endo Reports fatigue Yasir/Lymph Denies easy bleeding and Denies easy bruising Aller/Immun Denies wheezing Physical exam (Primary Care) Vital Signs: Last Vital Signs Pulse 86 08/29/24 09:23 BP 130/70 08/29/24 09:23 Pulse Ox 100 08/29/24 09:23 Oxygen Delivery Method Room Air 08/29/24 09:23 BMI result Body Mass Index 24.9 Tobacco/Smoking Status: Tobacco use Status Tobacco use date assessed 06/26/24 08/29/24 09:24 Patient Tobacco Use Status Never used Tobacco 08/29/24 09:24 e-Cigarette/Vaping Use Never Used 08/29/24 09:24 Thrive Assessment: Date of Thrive Assessment Date Thrive assessed 11/25/23 08/29/24 09:24 Const General: healthy appearing, no acute distress, alert and awake Nutritional Appearance: well nourished Orientation/consciousness: oriented to person, oriented to place and oriented to time HENMT Ears: TM's normal bilaterally General nose exam: Normal nasal mucous membranes and turbinates present Eyes Conjunctivae: conjunctivae normal Sclerae: sclerae normal Pupils: Equal, round and reactive pupils present Neck Neck: Yes no lymphadenopathy and Yes no JVD Thyroid: Thyroid normal Carotids: no bruits Chest Chest/axillae images: 1. NOTED SKIN IRRITATION 2. NOTED SKIN IRRITATION Resp Effort & Inspection: normal respiratory effort and not tachypneic Auscultation: no crackles, no rales, no rhonchi and no wheezes Cardio Rate: regular rate Rhythm: regular rhythm Heart sounds: no murmurs and normal S1 and S2 GI Palpation (GI): Soft to palpation, nontender, no hepatomegaly and no splenomegaly Auscultation: normal bowel sounds Skin General skin exam: no rashes or lesions noted and dry skin Neuro General: oriented to person, oriented to place and oriented to time Cranial nerves: Yes Equal, round and reactive pupils present Speech: No Abnormal speech present Gait exam (Neuro): Normal gait present Motor exam (neuro): no tremor noted Extrem Right upper extremity: full ROM Left upper extremity: full ROM Right lower extremity: full ROM; no edema Left lower extremity: full ROM; no edema Psych Mental Status: mental status grossly normal Speech and movement: Normal speech and movement present Affect: normal affect Attitude: cooperative Thought process: Normal thought process present Coding Level of Care Code Est Pt Level 4 (76254) Diagnoses Metastatic cancer to spine C79.51 Severe episode of recurrent major depressive disorder, without psychotic features F33.2 Psychotic features: without psychotic features Benign essential hypertension I10 Tinea unguium B35.1 Assessment & Plan Assessment & Plan (1) Metastatic cancer to spine: Code(s): C79.51 - Secondary malignant neoplasm of bone Category: Medical Plan: As per HPI patient has prostate cancer with Mets to spine and rib. He continues managing his pain with both Tylenol and oxycodone. He is still reports pretty significant body pain and we did discuss the role of narcotic pain medication in cancer related pain treatment. He has finished chemotherapy a few weeks ago and has upcoming appointment for re-evaluation his oncologist. He seems to be having some side effects from chemotherapy including fatigue, malaise in bilateral lower extremity pain and weakness. (2) MDD (major depressive disorder), recurrent episode, severe: Code(s): F33.2 - Major depressive disorder, recurrent severe without psychotic features Category: Medical Qualifiers: Psychotic features: without psychotic features Qualified Code(s): F33.2 - Major depressive disorder, recurrent severe without psychotic features Plan: He reports his depression is fairly well controlled with current SSRI therapy. He does have some low moods from time to time secondary to his medical condition and personal issues. (3) Benign essential hypertension: Code(s): I10 - Essential (primary) hypertension Category: Medical Plan: Patient's blood pressure acceptable today in office. Will continue his current dose of amlodipine 2.5 mg. Seems to be having some lower blood pressures likely secondary to dehydration from diarrhea and urinary frequency. Advised to stay well hydrated and include electrolytes in his hydration. (4) Tinea unguium: Code(s): B35.1 - Tinea unguium Category: Medical Plan: Patient's signs and symptoms of bilateral axillary skin dermatitis and groin itch and irritation MOLST concerning for tinea infection. Due to patient's recent chemotherapy he is fairly immunocompromised.. Will supply patient with dual topical antifungal and steroid. Orders: Orders Complete Blood Count no Diff Today I10 - Essential (primary) hypertension Comprehensive [place]. Panel Fast Today I10 - Essential (primary) hypertension Lipid Panel Today E78.00 - Pure hypercholesterolemia, unspecified Microalbumin, Random (w Creat) Today I10 - Essential (primary) hypertension Medications: New clotrimazole-betamethasone 1-0.05 % 1 appl topical BID 30 days 45 grams 0RF B35.1 - Tinea unguium Refilled oxycodone cancer related pain - METS to spine 10 mg PO Q4H 28 days PRN 168 tabs 0RF severe pain C61 - Malignant neoplasm of prostate, C79.51 - Secondary malignant neoplasm of bone
== END 2024-08-29 09:44 | disposition home or self-care (01) ==
PROVIDERS: PCP Physician Assistant; Visit Provider Physician Assistant
DX: C79.51 Secondary malignant neoplasm of bone (principal); F33.2 Major depressive disorder, recurrent severe without psychotic features; I10 Essential (primary) hypertension; B35.1 Tinea unguium

== ENCOUNTER 2024-09-27 10:17 | Outpatient (AMB) | payer MEDICARE, SELFPAY ==
--- NOTE | 2024-09-27 10:23 | A.OFFVIS_ITS ---
Intake Visit Reasons: GnRH/PSA(set) Intake Note: Patient is present for GNRH/PSA Urology Medication:TOLTERODINE,ABIRATERONE Antibiotic Allergy:STATINS Blood Thinner:NONE Turnaround Planner Required: No Allergies Tivsdkx-LOT-CwW Reductase Inhibitor Adverse Reaction (Intermediate, Verified 09/27/24 10:24) Joint and muscle pain HPI Comments Details: Mr Briceno is a very pleasant male. He is a patient of Dr. Tripp. Copies of notes to his oncologist Dr Maynard. He is seen for the following urologic condition - prostate cancer - hypogonadism Oncology - [facility] Dr Hooper 09/23 here for GNRH administration PSA 0.2 - testosterone not done 06/22 On GnRH and Gisell PSA 0.5 - imaging through oncology at [facility] Tolterodine for bladder stability Continue Taxotere - needed some dexamethasone 03/22 GnRH long acting administered PSA 0.47 T 02/20 Rapid progression of prior metastatic site on vertebral body - 01/20 1.1 Extensive enhancing osseous metastatic disease involving the T7, T8, and to a lesser extent the T6 spinal elements as well as the right seventh eighth ribs and right seventh and eighth costovertebral junction Given rapid acting GnRH in [place] with Dr. Nur Start Nubeqa/darolutamide Assess for docetaxel 10/23 0.55, T 547 The site of biopsy proved metastatic prostate adenocarcinoma involving the posteromedial aspect of the right seventh rib shows mild tracer avidity with SUV max of 2.8 (PSMA score of 1). Note is also made of mild tracer avidity associated with underlying sclerosis involving the transverse processes of T6 vertebral body with SUV max of 1.9 (PSMA score of 0), highly suspicious for second site of metastatic disease. There are however no other osseous tracer avid disease identified to suspect additional sites of metastasis 04/21 right posterior 8th rib metastatic lesion - external beam radiation with Fuad Forbes - review with Dr. Nur [facility] - her conclusion was indolent prostate cancer with solitary bony met in setting of low PSA - recommendation was to repeat PSMA imaging every 4 months since following with PSA unreliable - would not initiate hormone therapy at this point given poor prior response Labs 03/20 P 0.21, T 448, 09/21 T 476 P 0.3, 12/20 T 481 P 0.5, 06/21 0.56 T 547n Prostate cancer: 2006 initial therapy prostatectomy grade 3+4, rising PSA 2007 with external beam radiation and subsequent intermittent hormones Prostate cancer was diagnosed December 2005 Dr Costa. Diagnosis was reached by needle biopsy. The Darvin grade is 3+4 = 7, at surgery - tertiary 5. Extraprostatic extension at base of gland. Seminal vesicles were involved. Left micrometastatic focus of prostatic adenocarcinoma in 2/5 lymph nodes. - ? of rib involvement 2011. TNM Classification of Malignant Tumours (TNM) T2a. The [place] (NCCN) risk category is Intermediate Risk (PSA 10-20, Gl 7, T2). Initial therapy included Primary treatment 2005 , Prostatectomy (RRP/Robotic) , Additional treatment 2007 , External Beam Radiation , Additional treatment 2009 , Hormonal Blockade - Continuous, with, GnRH agonists (Lupron) and , Antiandrogen (nilandron) , Additional treatment 2015 , Hormonal Blockade -intermittent Last 01/12 , Additional treatment Prolia 04/16. Recent labs included a PSA (prostate-specific antigen) October 2015 undetectable Jun 2016 , a PSA (prostate-specific antigen), < 0.1, a testosterone, < 20 ng/dL October 2016 , a PSA (prostate-specific antigen), , < 0.1, T Mar , a PSA (prostate-specific antigen), < 0.1 10/17 , a PSA (prostate-specific antigen), < 0.1, T 167, 04/16 , a PSA (prostate-specific antigen), < 0.1, 05/17 , a PSA (prostate-specific antigen), < 0.1 05/18 PSA < 0.1, T 465 12/17 , PSA 0.05, Hct 50.3, T not done, 04/18 PSA 0.12, T 1000 - 10/20 PSA 0.12 T 2231, 06/19 0.15 458, 11/18 0.19 479 Recent imaging included a bone scan reported as negative , a DEXA scan 2013 osteopenia , a DEXA scan 2015 , showing osteopenia/osteoporosis , Plain x-ray 12/14 - no rib fracture 04/15 , a bone scan - ? compression fracture - MRI completed 12/17 DEXA - Normal levels - 06/18 BONE SCAN, NORMAL DEGENERATIVE CHANGE, 06/19 bone scan degenerative change no metastatic disease - 01/19 DEXA - osteopenia - 01/19 bone scan degenerative changes - ?moderate to significant focal activity left anterior 5th costochondral junction and right posterior 8th rib - 04/21 CT right medial posterior eighth rib which in this demonstrates destructive lesion which also extends to the right transverse process of T8 slightly increased compared to prior imaging. Therapeutic plan: Continue with PSA monitoring REPLACED BY [facility] Medical History Pure hypercholesterolemia Benign essential hypertension BRBPR (bright red blood per rectum) Pathologic rib fracture Acute upper gastrointestinal bleeding Annual physical exam Cough Right shoulder pain Prostate cancer Borderline high cholesterol Other forms of dyspnea Achilles tendon pain Hypogonadism in male HTN (hypertension) MDD (major depressive disorder), recurrent episode Anxiety Asthma Prostate cancer metastatic to bone Surgical History H/O endoscopy H/O prostatectomy Family History Father Pneumonia Substance abuse Mother CAD (coronary artery disease) CHF (congestive heart failure) Brother Stomach cancer Substance abuse Sister Breast cancer Substance abuse Social History Household Members: Friend(s) Housing: House Do you presently have visiting nurse or other home services: No Alcohol intake: unknown Patient Tobacco Use Status: Never used Tobacco Years Smoked: 40 yrs e-Cigarette/Vaping Use: Never Used Second Hand Smoke Exposure: No Substance Use Type: Marijuana service: No Current occupational status: unemployed Current occupation: [employer] Cognitive needs: No Hearing needs: No Vision needs: Yes (Pt went to an eye doctor about 4 years ago. ) Office Meds Eligard (6 month) 45 mg (6 month) subcutaneous syringe Performing Provider: Chano Chen MD [facility] Administered by: Chuck Lucio LPN on 09/27/24 11:40 Dose Route Admin Location Dispensed Lot Number Expiration Date [facility] Glaze Handler 45 mg subcut left arm 45 mg [id number] 01/28/26 75922-980-75 Tip or Skip. Assessment & Plan Assessment & Plan (1) Prostate cancer metastatic to bone: Comment: Intermittent hormone therapy Code(s): C61 - Malignant neoplasm of prostate; C79.51 - Secondary malignant neoplasm of bone Category: Medical Orders: Orders Prostate Specific Antigen 6 Months C79.51 - Secondary malignant neoplasm of bone, C80.1 - Malignant (primary) neoplasm, unspecified Testosterone, Total 6 Months C79.51 - Secondary malignant neoplasm of bone, C80.1 - Malignant (primary) neoplasm, unspecified AMB Leuprolide Injection - Practice Supplied Today C61 - Malignant neoplasm of prostate, C79.51 - Secondary malignant neoplasm of bone Medications: New Eligard (6 month) (leuprolide acetate (6 month)) 45 mg subcut ONCE 1 ea 0RF NS C61 - Malignant neoplasm of prostate, C79.51 - Secondary malignant neoplasm of bone Patient Instructions: Imaging studies, laboratory and physical exam results were discussed and reviewed in detail. No major barriers to patient understanding were identified. An opportunity to ask questions regarding the treatment plan was provided. All questions were answered. The patient expressed understanding and agreement with the above treatment plan. The patient is aware they should contact our office by phone for worsening of their current condition or the appearance of new urologic symptoms. Compliance is encouraged with any medications and followup testing that is ordered. It is a privilege to participate in the urologic care of your patient. If you have any questions or concerns regarding treatment for the above conditions, or other urologic issues, please do not hesitate to contact me. The office telephone contact is [phone]. This note is constructed using voice recognition software. While every effort has been made to ensure accuracy cabin service agent errors may have been included. Yours sincerely, Dr Chano Chen MD, [facility] - Urology Providers of Expert, Compassionate Care for the Genitourinary System Coding Diagnoses Prostate cancer metastatic to bone C61; C79.51
--- OUTSIDE RECORDS SUMMARY | 2024-09-27 12:17 | XMS_ITS | Clinical Summary ---
Author Organization [facility] Address [address] [place] [address] Care Team Providers Care Chief Security And Safety Officer Name Role Phone Unavailable Primary Care Provider Unavailabl e Allergies No known active allergies Medications Medication Sig Dispensed Refills Start Date End Date Status metoprolol succinate (TOPROL-XL) 24 hr tablet 25 mg Take 1 tablet (25 mg total) by mouth daily. 0 Active omeprazole (PriLOSEC) 20 MG capsuleIndications:G astroesophageal Reflux Disease Take 2 capsules (40 mg total) by mouth daily. 0 Active vitamin D3 (cholecalciferol) 25 MCG (1000 UT) tabletIndications:Vi tamin D Deficiency Take 1 tablet (25 mcg total) by mouth daily. 0 Active amLODIPine (NORVASC) tablet 2.5 mg Take 2 tablets (5 mg total) by mouth daily. 0 Active escitalopram (LEXAPRO) tablet 10 mg Take 1 tablet (10 mg total) by mouth daily. 0 Active amoxicillin (AMOXIL) 500 MG capsule Take 1 capsule (500 mg total) by mouth 3 (three) times a day. 30 capsule 0 04/05/2023 Active Active Problems No known active problems Social History Tobacco Use Types Packs/Day Years Used Date Smoking Tobacco: Former Cigarettes Smokeless Tobacco: Never Tobacco Cessation:Counseling Given: Not Answered Alcohol Use Standard Drinks/Week Comments Not Currently 0 (1 standard drink = 0.6 oz pur e alcohol) Sex and Gender Information Value Date Recorded Sex Assigned at Male 04/05/2023 5:20 AM EDT Gender Identity Male 04/05/2023 5:20 AM EDT Sexual Orientation Not on file Job Start Date Occupation Industry Not on file Not on file Not on file Last Filed Vital Signs Vital Sign Reading Time Taken Comments Blood Pressure 152/70 04/05/2023 5:22 AM EDT Pulse 69 04/05/2023 5:22 AM EDT Temperature 36.6 ??C (97.9 ??F) 04/05/2023 5:22 AM ED T Respiratory Rate 17 04/05/2023 5:22 AM EDT Oxygen Saturation 97% 04/05/2023 5:22 AM EDT Inhaled Oxygen Concentration - - Weight 79.4 kg (175 lb) 04/05/2023 5:22 AM EDT Height 190.5 cm (6' 3 ) 04/05/2023 5:22 AM EDT Body Mass Index 21.87 04/05/2023 5:22 AM EDT Plan of Treatment Not on file
--- OUTSIDE RECORDS SUMMARY | 2024-09-27 12:17 | XMS_ITS ---
Author Organization Wilfred Maynard III, MD Address [address] [facility] [place] [address] Care Team Providers Care Math Teacher Name Role Phone PREETI HDEZ Primary Care Provider Unavailab Wilfred Marroquin Unavailable [phone] Allergies Allergen (clinical drug ingredient) Drug/Non Drug Allergy documented on EMR Reaction Allergy Type Onset Date Status No Known Drug Allergy Unknown Drug Allergy Active Results Component Value Reference Range Notes Urine Culture Reviewed date:08/23/2024 08:18:58 AM Interpretation: Performing Lab:[facility], [address] [place] [id number] Notes/Report: O:PROMIR Proteus mirabilis Urine Culture Quant [...] Status W/U Status Risk Notes Problem Overweight (995995521) Overweight (E66.3) Active confirmed His body mass [...] Date Provider Diagnosis Wilfred Maynard III, MD [address] [place] [address] [place] [facility] [address] 06/02/2024 Wilfred Maynard Overweight E66.3 ; Prostate [...] is being treated by medical oncology at [facility]. His review of symptoms and tolerating [...] 3 Months, Reason: OV Provider Name:Wilfred Maynard, 01/02/2025 09:15:00 AM, [address] [place] [address], [address], Progress Notes * Justin BRICENODOB:[birth year] (69 yo M)Acc No.[id number]:06/02/2024 Progress Notes Patient:?Justin BRICENO Provider:?Wilfred Maynard MD :1955???Age:69 Y???Sex:Male Ike e:06/02/2024 Address:[address] [place] [address] Pcp:PREETI HDEZ Subjective: * Chief Complaints: * [...] single and working. He was born in [place], [place]. He does not drink or smoke. 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 He enjoys [...] is being treated by medical oncology at [facility].? His review of symptoms and tolerating his [...] * Provider:?Wilfred Maynard MD Date:?11/2023 Generated for Printi ng/Faleobardog/eTransmitting on:?09/27/2024 12:17 PM EST History and Physical Notes * HPI [...]
--- OUTSIDE RECORDS SUMMARY | 2024-09-27 12:17 | XMS_ITS | Clinical Summary ---
Author Organization [facility] Address [address] [place] [address] Care Team Providers Care Sales Branch Manager Name Role Phone Unavailable Primary Care Provider Unavailabl e Surgical History Surgery Date Site/Laterality Comments PROSTATECTOMY PROCEDURE:PROSTATECTOMY Medical History Medical History Date Comments Cancer (CMS/HCC) DX:Cancer (HCC) ;COMMENT:Prostate, Basal Cell Social History Tobacco Use Types Packs/Day Years Used Date Smoking Tobacco: Former Smokeless Tobacco: Never Alcohol Use Standard Drinks/Week Comments Not Currently 0 (1 standard drink = 0.6 oz pur e alcohol) Sex and Gender Information Value Date Recorded Sex Assigned at Not on file Gender Identity Not on file Sexual Orientation Not on file Obstetrics History Plan of Treatment Health Maintenance Due Date Last Done Comments DTaP,Tdap,and Td Vaccines (1 - Tdap) 1974 Zoster Vaccines (1 of 2) 2005 Pneumococcal Vaccine: 65+ Ye ars (1 of 1 - PCV) 2020 Abdominal Aortic Aneurysm (A AA) Screen 09/24/2023 Cholesterol Screening (Lipid Panel) 09/24/2023 Colorectal Cancer Screening: Colonoscopy 09/24/2023 Depression Screening 09/24/2023 Falls Risk Assessment 09/24/2023 Hepatitis C Screening 09/24/2023 Social Influencers of Health Screening 09/24/2023 COVID-19 Vaccine ( - 2023-2 5 season) 2024 Influenza Vaccine (#1) 2024 RSV Immunization Patients 60 + Years Old (1 - 1-dose 75+ series) 2030 HIB Vaccines Aged Out No longer eligi ble based on patient's age to complete this topic HPV Vaccines Aged Out No longer eligi ble based on patient's age to complete this topic Hepatitis A Vaccines Aged Out No long er eligible based on patient's age to complete this topic Hepatitis B Vaccines Aged Out No long er eligible based on patient's age to complete this topic IPV Vaccines Aged Out No longer eligi ble based on patient's age to complete this topic MMR Vaccines Aged Out No longer eligi ble based on patient's age to complete this topic Meningococcal ACWY Vaccine Aged Out N o longer eligible based on patient's age to complete this topic RSV Immunization Patients Un dejuan 20 months Aged Out No longer eligible b ased on patient's age to complete this topic Varicella Vaccines Aged Out No longer eligible based on patient's age to complete this topic
--- OUTSIDE RECORDS SUMMARY | 2024-09-27 12:17 | XMS_ITS ---
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
--- OUTSIDE RECORDS SUMMARY | 2024-09-27 12:17 | XMS_ITS ---
Author Organization Wilfred Maynard III, MD Address [address] [facility] [place] [address] Care Team Providers Care Pit Laborer Name Role Phone PREETI HDEZ Primary Care Provider Unavailab Wilfred Marroquin Unavailable [phone] Allergies Allergen (clinical drug ingredient) Drug/Non Drug [...] Problem Status W/U Status Risk Notes Problem 251151132 Weight loss, unintentional (R63.4) Active confirmed He has lost 10 pounds since last May. He says he is eating well. Comprehensive blood work with thyroid function tests were ordered. He remains slightly overweight. Problem Anemia (311659914) Anemia, unspecified (D64.9) Active confirmed His hemoglobin [...] Date Provider Diagnosis Wilfred Maynard III, MD [address] [place] [address] [place] [address] 09/04/2024 Wilfred Maynard Overweight E66.3 ; Prostate [...] is being treated by medical oncology at [facility]. His review of symptoms and tolerating [...] assess the patient's condition. Provider Name:Wilfred Maynard, 01/02/2025 09:15:00 AM, [address] [place] [address], [address], Progress Notes * TIAJustin ShielaDOB:[birth year] (69 yo M)Acc No.[id number]:09/04/2024 Progress Notes Patient:?BRICENOJustin AVILES Provider:?Wilfred Maynard MD :1955???Age:69 Y???Sex:Male Ike e:09/04/2024 Address:[address] [place], [place] [id number] Pcp:PREETI HDEZ Subjective: * Chief Complaints: * ???Stage IV prostate cancerH istory of skin cancerDepressionIncontinenceBenign prostatic hypertrophy * HPI: ???COVID-19 Screening:?Questions?Have you had any new onset fever, chills, cough, congestion, sore throat, shortness of breath, muscle aches??No ???:? The patient, Leroy, a 69-year-old male, presented [...] incontinence. Blood Sugar Level is 85. * ROS:?General/Constitutional:?Admits?pain,?4 out of 10 muscles of both thighs and both lower extremities, recently begun a new medication, no muscle weakness.?Chills?denies.?Fatigue?admits.?Fever?denies.?ENT:?Decreased hearing?denies.?Respiratory:?Cough?denies.?Cardiovascular:?Chest pain with exertion?denies.?Dyspnea on exertion?denies.?Shortness of breath?denies.?Gastrointestinal:?Constipation?occasional.?Decreased appetite?denies.?Diarrhea?denies.?Heartburn?denies.?Nausea?denies.?Rectal bleeding?denies.?Vomiting?denies.?Hematology:?bruising?denies.?petechiae?denies.?Swollen glands?none have been noted.?Genitourinary:?Frequent urination?once a night.?Admits?Urinary Incontinence.?Musculoskeletal:?Muscle aches?denies.?Painful joints?denies.?Sciatica?denies.?Weakness?denies.?Skin:?Itching?denies.?Rash?denies.?Skin lesion(s)?denies.?Neurologic:?Difficulty speaking?denies.?Dizziness?denies.?Headache?denies.?Low back pain?denies.?Psychiatric:?Depressed mood?which is moderate.? * Medical History:? * Surgical History:?biopsy of prostate 2006radical prostatectomy 2008Prostate removal surgery 18 years ago No history * Hospitalization/Major Diagno stic Procedure:?Shortness of breath 01/2020Shortness of breath 04/2020No history * Family History:?Father: dece ased 81 yrs, natural causes, , alcoholism.?Mother: 76 yrs, congestive heart failure, arthritis.?Siblings: .?Maternal uncle: .?3 brother(s) , 6 sister(s) . 1 daughter(s) [...] single and working. He was born in [place], [place]. He does not drink or smoke. 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 He enjoys drumming. He has one daughter. * Medications:?TakingDarolutam ye 300 MG Tablet 2 tablets Orally Twice [...] All ergyno[Allergies Verified] Objective: * Vitals:?Ht: 74, Wt:196, BMI: 25.16, BP:140/75, HR:77, Temp:96.8, Ht-cm: 187.96, Wt-k.9. * Examination: ???General Examination: ?GENERAL APPEARANCE:?pleasant, well nourished, well developed, in no acute distress, calm and relaxed, overweight, man.?HEAD:?atraumatic, normocephalic.?EYES:?eomi, perrla, anicteric, conjugate.?EARS:?normal.?NOSE:?septum intact.?ORAL CAVITY:?normal, unremarkable.?NECK/THYROID:?no jugular venous distention, no carotid bruit, thyroid normal.?LYMPH NODES:?no enlarged lymph nodes,spleen normal.?SKIN:?no suspicious lesions, anicteric, Much improved acne.?HEART:?no clicks, gallops, murmurs, or rubs, regular rhythm, S1, S2 normal, no s3, or vascular bruits.?LUNGS:?clear to auscultation .?BREASTS:??no masses palpable bilaterally.?ABDOMEN:?bowel sounds normal, no ascites, no organomegaly, no mass, overweight.?RECTAL EXAM:?not examined.?MUSCULOSKELETAL:?extremities unremarkable, no clubbing, cyanosis or edema.?PERIPHERAL PULSES:?normal.?NEUROLOGIC:?alert and oriented, cranial nerves 2-12 grossly intact, deep tendon reflexes 2+ symmetrical, motor strength normal upper and lower extremities, sensory exam intact.?PSYCH:?alert, oriented.? Assessment: * Assessment: 1.?Prostate cancer - C61 (Pr imary)???Notes :He has begun a new regimen of leuprolide and docetaxel and darolutamide. His PSA is low and likely not a reliable way to follow malignancy. He is being treated by medical oncology at [facility]. His review of symptoms and tolerating his treatment well. We have requested the records.???2.?Overweight - E66.3???Notes :His body mass index is slightly over 25.? He has lost weight recently.? IRs and to maintain his weight at this level to a healthy nutritious diet.???3.?Weight loss, unintentional - R63.4???Notes :He has lost 10 pounds since last May.? He says he is eating well.? Comprehensive blood work with thyroid function tests were ordered.? He remains slightly overweight.???4.?Incontinence - R32???Notes :He continues to have intermittent incontinence of urine. He has adapted to this and is unimpaired and daily living.???5.?Anemia, unspecified - D64.9???Notes :His hemoglobin and hematocrit are now in the normal range and this problem has resolved.??? Plan: * Treatment: * Procedure Codes:? * [...] or Other reason not done * Follow Up:?After visit to on cologist (Reason: To discuss the outcome of the visit to the oncologist and to assess the patient's condition.) * Images: * Sign off status: Completed true * Provider:?Wilfred Maynard MD Date:?01/2025 Generated for Luís raygoza/Dennis/eTransmitting on:?09/27/2024 12:17 PM EST History and Physical [...]
--- OUTSIDE RECORDS SUMMARY | 2024-09-27 12:17 | XMS_ITS | Patient Health Record ---
Author Organization [facility] Address [address] [place] [address] Care Team Providers Care Hospital Unit Coordinator Name Role Phone Gadiel Tripp Primary Care Provider Unavailab Wilfred Hyde Unavailable [phone] ALLERGIES No Known Allergies REASON FOR REFERRAL [...] malignant neoplasm of colon (Z12.11) Active confirmed 038153302 Problem History of adenomatous polyp of colon (Z86.010) Active confirmed 528145815 Problem Weight loss (R63.4) Active confirmed 83167968 Problem Anorexia (R63.0) Active confirmed 34820378 Problem Erosive esophagitis (K22.10) Active confirmed Erosive esophag itis (62348674) Problem GERD (gastroesophage al reflux disease) (K21.9) Active confirmed Gastroesophagea l reflux disease (430255599) Problem Pre-procedural examination (Z01.818) Active confirmed 788072057199423 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 68217351 Encounters Encounter Location Date Provider Diagnosis [facility] [address] [place] [address] 10/27/2023 Wilfred Manley PLAN OF TREATMENT Future Test Test Name Order Date UPPER GI ENDOSCOPY 07/27/2012 COLONOSCOPY 07/27/2012 COLONOSCOPY 01/20/2019 Insurance Providers Payer Name Payer Address Payer Phone Subscriber Number Group Number Insured Name Patient Relationship to Insured Coverage Start Date Coverage End Date MEDICARE OF [place] [address] [place] [address] [id number] MORGAN WEBER Self - patient is the insured MEDICAID OF [facility] [employer] [address] [place] [address] [id number] MORGAN WEBER Self - patient is the insured MEDICAL (GENERAL) HISTORY Medical History History ICD Code Hx of tubular adenoma & hyperplastic hannah yps removed in 04/2007 GERD-EGD in 1998 with a HH-no Hamilton's Prostate cancer with mets to right ribs-Rx'd with Lupron; previously Rx'd with surgery and XRT Asthma Denies VA,DM,CVA,renal disease Colonoscopy in 08/2012 neg. for polyps [...]
--- OUTSIDE RECORDS SUMMARY | 2024-09-27 12:17 | XMS_ITS ---
Author Organization Wilfred Maynard III, MD Address [address] [place] [address] Care Team Providers Care Refining Supervisor Name Role Phone PREETI HDEZ Primary Care Provider Unavailab Wilfred Marroquin Unavailable [phone] REASON FOR VISIT Rx Message Social History Sex Assigned At : Social History Observation Description Sex Assigned At Male Encounters Encounter Location Date Provider Diagnosis Wilfred Maynard III, MD [address] [place] [address] [place] [address] 09/04/2024 Wilfred Maynard Plan Of Treatment Next Appt Details Provider Name:Wilfred Maynard, 01/02/2025 09:15:00 AM, [address] [place] [address] [place], [address], Progress Notes * Justin BRICENODOB:[birth year] (69 yo M)Acc No.[id number]:09/04/2024 Patient:?Justin BRICENO :1955???Age:69 Y???Sex:Male Address:[address] [place] [address] * true * Date:? Generated for Printi ng/Faxing/eTransmitting on:?09/27/2024 12:17 PM EST
--- OUTSIDE RECORDS SUMMARY | 2024-09-27 12:18 | XMS_ITS ---
Author Organization [facility] Address [address] [place] [address] Care Team Providers Care Military Exchange Wireless Manager Name Role Phone Gadiel Tripp Primary Care Provider Unavailab Wilfred Hyde Unavailable [phone] REASON FOR VISIT refill request omeprazole/ out of meds Encounters Encounter Location Date Provider Diagnosis [facility] [address] [place] [address] 10/27/2023 Wilfred Manley PLAN OF TREATMENT No Information
--- OUTSIDE RECORDS SUMMARY | 2024-09-27 12:18 | XMS_ITS ---
Author Organization [facility] Address [address] [place] [address] Care Team Providers Care Solder Making Supervisor Name Role Phone Gadiel Tripp Primary Care Provider Unavailab Wilfred Hyde Unavailable [phone] Encounters Encounter Location Date Provider Diagnosis [facility] [address] [place] [address] 05/01/2023 Wilfred Manley PLAN OF TREATMENT No Information
== END 2024-09-27 11:51 | disposition home or self-care (01) ==
PROVIDERS: PCP Physician Assistant; Visit Provider Urology
DX: C61 Malignant neoplasm of prostate (principal); C79.51 Secondary malignant neoplasm of bone

== ENCOUNTER → 2024-09-27 10:17 | Outpatient (BNVA) | payer MEDICARE, SELFPAY | PROVIDERS: PCP Physician Assistant; Visit Provider Urology | DX: C61 Malignant neoplasm of prostate (principal); C79.51 Secondary malignant neoplasm of bone; E29.1 Testicular hypofunction | CPT/HCPCS: 96402; 99212; J9217 ==

== ENCOUNTER 2024-10-26 09:35 | Outpatient (AMB) | payer MEDICARE, SELFPAY ==
[2024-10-26 09:51] VITALS: BP 112/64; PULSE 84; TEMP 36.1; O2SAT 98; BMI 23.4
--- NOTE | 2024-10-26 09:51 | A.OFFPC_ITS ---
Vital Signs 10/26/24 09:51 Height 6 ft 3 in Weight 187 lb BMI 23.4 BP 112/64 Blood Pressure Location Lt brachial Position Sitting Pulse 84 Pulse Source Pulse Oximeter Temp 96.9 F Temp Source Temporal Artery Scan Pulse Oximetry (%) 98 Oxygen Delivery Method Room Air Intake Visit Reasons: 2 month f/u Drawing Box Tender Required: No Accompanied by: Self / Same As Patient Allergies Qwebwhy-TAX-SwU Reductase Inhibitor Adverse Reaction (Intermediate, Verified 10/26/24 10:10) Joint and muscle pain Medication List - Last Reconciled 10/26/24 by Gadiel Tripp PA-C amlodipine 5 mg (2 x 2.5 mg) PO DAILY 30 days cholecalciferol (vitamin D3) 25 mcg PO DAILY dexamethasone mg PO escitalopram oxalate 20 mg PO DAILY 30 days omeprazole 40 mg PO DAILY oxycodone 10 mg PO Q4H PRN 28 days Tobacco use date assessed: 10/26/24 Fall risk assessment: No Falls in past year Last assessed Fall Risk: 10/26/24 Dental Screening Dental Screen Date: 10/26/24 Did you have a dental visit in the last 12 months?: No Did you have a dental problem in the last 6 months where you did not have access to dental care?: No Was dental information given to patient?: Patient has dentist HPI 2 month f/u HPI Details Patient is 69 -year-old male here today for follow-up visit. Patient has a past medical history significant for hyperlipidemia, prostate cancer with Mets to rib, hypertension and major depressive disorder. Recently seen at a local ER for abdominal pain emesis. Workup significant for hypokalemia likely secondary to emesis. He reports he had viral gastroenteritis. Currently feeling much better. Will recheck his potassium on upcoming labs Prostate cancer with metastasis to bone:? INTERVAL HISTORY---> Continues to oncologist and urologist. Most recent PSA were slightly elevated. PET scan showed metastasize lesion on a single rib. thoracic MRI showing-->Extensive enhancing osseous metastatic disease involving the T7, T8, and to a lesser extent the T6 spinal elements as well as the right seventh eighth ribs and right seventh and eighth costovertebral junctions. He is then followed up with radiologist [facility] was not a candidate for radiation. He has started chemotherapy at [facility] oncology (Dr. Nur) recommended--> pain management with oxycodone 10 mg every 4 hours as needed, dexamethasone 2 mg in the morning and Tylenol a 1000 TID.. He has finished chemotherapy a few weeks ago. Does have side effects such as fatigue, bilateral lower extremity weakness and pain. RECENTLY UNDERWENT A REPEAT PET SCAN AUGUST OF 2024 WHICH DID NOT SHOW ANY RECURRENT METASTATIC DISEASE .. .. Major depressive disorder: He continues on Lexapro 20 mg with decent affect. Still is somewhat depressed though has been stable He is not interested in establishing with a mental health therapist or psychiatrist at this time. He mentions he would like to start walking again to help him with his mental health [facility] Medical History Pure hypercholesterolemia Benign essential hypertension BRBPR (bright red blood per rectum) Pathologic rib fracture Acute upper gastrointestinal bleeding Annual physical exam Cough Right shoulder pain Prostate cancer Borderline high cholesterol Other forms of dyspnea Achilles tendon pain Hypogonadism in male HTN (hypertension) MDD (major depressive disorder), recurrent episode Anxiety Asthma Prostate cancer metastatic to bone Surgical History H/O endoscopy H/O prostatectomy Family History Father Pneumonia Substance abuse Mother CAD (coronary artery disease) CHF (congestive heart failure) Brother Stomach cancer Substance abuse Sister Breast cancer Substance abuse Social History Household Members: Friend(s) Housing: House Do you presently have visiting nurse or other home services: No Alcohol intake: unknown Patient Tobacco Use Status: Never used Tobacco Years Smoked: 40 yrs e-Cigarette/Vaping Use: Never Used Second Hand Smoke Exposure: No Substance Use Type: Marijuana service: No Current occupational status: unemployed Current occupation: [employer] Cognitive needs: No Hearing needs: No Vision needs: Yes (Pt went to an eye doctor about 4 years ago. ) Questionnaire PHQ-9 Over the last 2 weeks, how often have you been bothered by any of the following problems? 1. Little interest or pleasure in doing things: not at all 2. Feeling down, depressed, or hopeless: not at all 3. Trouble falling or staying asleep, or sleeping too much: not at all 4. Feeling tired or having little energy: not at all 5. Poor appetite or overeating: not at all 6. Feeling bad about yourself - or that you are a failure or have let yourself or your family down: not at all 7. Trouble concentrating on things, such as reading the newspaper or watching television: not at all 8. Moving or speaking so slowly that other people could have noticed. Or the opposite - being so fidgety or restless that you have been moving around a lot more than usual: not at all 9. Thoughts that you would be better off or of hurting yourself in some way: not at all Total score: 0 Depression Screening Interpretation: Negative Depression Screening Done: Yes 15678 - PHQ-9 Billing: Yes Source: Developed by Drs. Wilfred Obando, Darshana Vaz, Chip Maya and colleagues, with an educational damion from [employer]. Thrive Questionnaire Date Thrive assessed: 10/26/24 I am a: Patient What is your living situation today?: I have a steady place to live Within the past 12 months, did the food you bought not last and you didn't have the money to get more?: Never true Within the past 12 months, did you worry whether your food would run out before you got money to buy more?: Never true Do you have trouble paying for medicines?: No Do you have trouble getting transportation to medical appointments?: No Do you have trouble paying your heating and electricity bill?: No Do you have trouble taking care of your child, family member or friend?: No Do you have trouble with day-to-day activities such as bathing, preparing meals, shopping, managing finances, etc.?: No Are you currently unemployed and looking for a job?: No Are you interested in more education?: No Please select the resources that you would like help with: None Currently or been in a relationship where the following occur: No concerns reported THRIVE Score: 0 AUDIT C Alcohol Use Questionnaire (AUDIT-C) 1. How often do you have a drink containing alcohol?: Never 3. How often do you have six or more drinks on one occasion?: Never Total Score: 0 GABRIELE-7 AMB Questionnaire GABRIELE-7 Date GABRIELE - 7 assessed: 10/26/24 Feeling nervous, anxious, or on edge: 0 = Not at all Not being able to stop or control worryin = Not at all Worrying too much about different things: 0 = Not at all Trouble relaxin = Not at all Being so restless that it is hard to sit still: 0 = Not at all Becoming easily annoyed or irritable: 0 = Not at all Feeling afraid as if something awful might happen: 0 = Not at all Total GABRIELE-7 score (0-4 normal; 5-9 mild; 10-14 moderate; 15-21 severe): 0 Source: Developed by Drs. Wilfred Obando, Darshana Vaz, Chip Maya and colleagues, with an educational damion from [employer]. GABRIELE-7 Assessment Billing GABRIELE-7 Assessment Tool: GABRIELE-7 Assessment 21749 Review of Systems Const Denies headache(s) Eyes Denies loss of vision ENT Denies vertigo, Denies dizziness, Denies headache(s) and Denies sore throat Card Denies chest pain, Denies leg edema and Denies lightheadedness Resp Denies cough, Denies hemoptysis and Denies wheezing GI Denies abdominal pain, Denies melena, Denies constipation, Denies diarrhea and Denies vomiting Denies dysuria, Denies urinary frequency and Denies urinary urgency Musc Denies arthralgias, Denies joint swelling, Denies numbness and Denies tingling Neuro Denies Abnormal speech present, Denies behavioral changes, Denies vertigo, Denies dizziness, Denies headache(s), Denies loss of vision, Denies memory loss, Denies numbness and Denies tingling Psych Denies anxiety, Denies behavioral changes, Denies depression, Denies memory loss and Denies panic attacks Yasir/Lymph Denies easy bleeding and Denies easy bruising Aller/Immun Denies wheezing Physical exam (Primary Care) Vital Signs: Last Vital Signs Temp 96.9 F 10/26/24 09:51 Pulse 84 10/26/24 09:51 BP 112/64 10/26/24 09:51 Pulse Ox 98 10/26/24 09:51 Oxygen Delivery Method Room Air 10/26/24 09:51 BMI result Body Mass Index 23.4 Tobacco/Smoking Status: Tobacco use Status Tobacco use date assessed 10/26/24 10/26/24 09:58 Patient Tobacco Use Status Never used Tobacco 10/26/24 09:58 e-Cigarette/Vaping Use Never Used 10/26/24 09:58 PHQ-9: PHQ-9 Score PHQ-9: Total score 0 10/26/24 09:58 Depression Screening Interpretation: Negative Thrive Assessment: Date of Thrive Assessment Date Thrive assessed 10/26/24 10/26/24 09:58 Currently or been in a relationship where the following occur: No concerns reported Const General: healthy appearing, no acute distress, alert and awake Nutritional Appearance: well nourished Orientation/consciousness: oriented to person, oriented to place and oriented to time HENMT Ears: TM's normal bilaterally General nose exam: Normal nasal mucous membranes and turbinates present Eyes Conjunctivae: conjunctivae normal Sclerae: sclerae normal Pupils: Equal, round and reactive pupils present Neck Neck: Yes no lymphadenopathy and Yes no JVD Thyroid: Thyroid normal Carotids: no bruits Resp Effort & Inspection: normal respiratory effort and not tachypneic Auscultation: no crackles, no rales, no rhonchi and no wheezes Cardio Rate: regular rate Rhythm: regular rhythm Heart sounds: no murmurs and normal S1 and S2 GI Palpation (GI): Soft to palpation, nontender, no hepatomegaly and no splenomegaly Auscultation: normal bowel sounds Skin General skin exam: no rashes or lesions noted and dry skin Neuro General: oriented to person, oriented to place and oriented to time Cranial nerves: Yes Equal, round and reactive pupils present Speech: No Abnormal speech present Gait exam (Neuro): Normal gait present Motor exam (neuro): no tremor noted Extrem Right upper extremity: full ROM Left upper extremity: full ROM Right lower extremity: full ROM; no edema Left lower extremity: full ROM; no edema Psych Mental Status: mental status grossly normal Speech and movement: Normal speech and movement present Affect: normal affect Attitude: cooperative Thought process: Normal thought process present Coding Level of Care Code Est Pt Level 4 (14474) Diagnoses Metastatic cancer to spine C79.51 Severe episode of recurrent major depressive disorder, without psychotic features F33.2 Psychotic features: without psychotic features Benign essential hypertension I10 Additional Codes GABRIELE-7 Assessment Billing - GABRIELE-7 Assessment Tool: GABRIELE-7 Assessment 14070 ([id number]) PHQ-9 - 43746 - PHQ-9 Billing: Yes ([id number]) Assessment & Plan Assessment & Plan (1) Metastatic cancer to spine: Code(s): C79.51 - Secondary malignant neoplasm of bone Category: Medical Plan: As per HPI patient has prostate cancer with Mets to spine and rib. He continues managing his pain with both Tylenol and oxycodone. He is still reports pretty significant body pain and we did discuss the role of narcotic pain medication in cancer related pain treatment. He has finished chemotherapy , continues on Lupron injections He seems to be having some side effects from chemotherapy including fatigue, malaise in bilateral lower extremity pain and weakness. HAS RECENTLY GOT PET SCAN WITHOUT ANY EVIDENCE OF METASTATIC DISEASE, PATIENT IS VERY HAPPY ABOUT THIS. (2) MDD (major depressive disorder), recurrent episode, severe: Code(s): F33.2 - Major depressive disorder, recurrent severe without psychotic features Category: Medical Qualifiers: Psychotic features: without psychotic features Qualified Code(s): F33.2 - Major depressive disorder, recurrent severe without psychotic features Plan: He reports his depression is fairly well controlled with current SSRI therapy. He does have some low moods from time to time secondary to his medical condition and personal issues. (3) Benign essential hypertension: Code(s): I10 - Essential (primary) hypertension Category: Medical Plan: Patient's blood pressure acceptable today in office. Will continue his current dose of amlodipine 2.5 mg. Seems to be having some lower blood pressures likely secondary to dehydration from diarrhea and urinary frequency. Advised to stay well hydrated and include electrolytes in his hydration. Medications: Refilled escitalopram oxalate 20 mg PO DAILY 30 days 30 tabs 6RF F33.2 - Major depressive disorder, recurrent severe without psychotic features amlodipine must make cardiology appt for refills 5 mg (2 x 2.5 mg) PO DAILY 30 days 60 tabs 0RF I10 - Essential (primary) hypertension amlodipine must make cardiology appt for refills 5 mg (2 x 2.5 mg) PO DAILY 30 days 60 tabs 6RF I10 - Essential (primary) hypertension oxycodone cancer related pain - METS to spine 10 mg PO Q4H 28 days PRN 168 tabs 0RF severe pain C61 - Malignant neoplasm of prostate, C79.51 - Secondary malignant neoplasm of bone Patient Instructions: Goal: Blood pressure to remain below 140/90. Barriers: Adherence to physical activity and healthy eating habits
--- OUTSIDE RECORDS SUMMARY | 2024-10-26 10:48 | XMS_ITS | Clinical Summary ---
Author Organization [facility] Address [address] [place] [address] Care Team Providers Care Highway Maintenance Supervisor Name Role Phone Unavailable Primary Care Provider [...] Recorded Sex Assigned at Not on file Legal Sex Male 9:06 PM EST Gender Identity Not on file Sexual Orientation Not on file Obstetrics History Plan of Treatment Health Maintenance Due Date Last Done Comments DTaP,Tdap,and Td Vaccines (1 - Tdap) 1974 Pneumococcal Vaccine: 50+ Ye ars (1 of 1 - PCV) 2005 Zoster Vaccines (1 of 2) 2005 Abdominal Aortic Aneurysm (A AA) Screen 09/24/2023 [...] patient's age to complete this topic Meningococcal B Vacine Aged Out No lo nger eligible based on patient's age to complete this topic RSV Immunization Patients Un dejuan 20 months Aged Out No longer eligible b ased on patient's age to complete this topic Varicella Vaccines Aged Out No longer eligible based on patient's age to complete this topic
--- OUTSIDE RECORDS SUMMARY | 2024-10-26 10:48 | XMS_ITS ---
Author Organization Wilfred Maynard III, MD Address [address] [facility] [place] [address] Care Team Providers Care Chief Meteorologist Name Role Phone PREETI HDEZ Primary Care Provider Unavailab Wilfred Marroquin Unavailable [phone] Allergies Allergen (clinical drug ingredient) Drug/Non Drug [...] Problem Status W/U Status Risk Notes Problem 169993837 Weight loss, unintentional (R63.4) Active confirmed He has lost 10 pounds since last May. He says he is eating well. Comprehensive blood work with thyroid function tests were ordered. He remains slightly overweight. Problem Anemia (233030075) Anemia, unspecified (D64.9) Active confirmed His hemoglobin [...] Provider Diagnosis Wilfred Maynard III, MD [address] [place] [address] [place] [address] 09/04/2024 Wilfred Maynard Overweight E66.3 ; Prostate [...] is being treated by medical oncology at [facility]. His review of symptoms and tolerating [...] condition. Provider Name:Wilfred Maynard, 01/02/2025 09:15:00 AM, [address] [place] [address], [address], Progress Notes * TIAJustin SihelaDOB:[birth year] (69 yo M)Acc No.[id number]:09/04/2024 Progress Notes Patient:?BRICENOJustin AVILES Provider:?Wilfred Maynard MD :1955???Age:69 Y???Sex:Male Ike e:09/04/2024 Address:[address] [place], [place] [address] Pcp:PREETI HDEZ Subjective: * Chief Complaints: * [...] single and working. He was born in [place], [place]. He does not drink or smoke. 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 He [...] is being treated by medical oncology at [facility]. His review of symptoms and tolerating [...] Maynard MD Date:?01/2025 Generated for Luís raygoza/Dennis/eTransmitting on:?10/26/2024 10:48 AM EST History and Physical Notes * [...]
--- OUTSIDE RECORDS SUMMARY | 2024-10-26 10:48 | XMS_ITS ---
Author Organization Wilfred Maynard III, MD Address [address] [facility] [place] [address] Care Team Providers Care Social Welfare Clerk Name Role Phone PREETI HDEZ Primary Care Provider Unavailab Wilfred Marroquin Unavailable [phone] Allergies Allergen (clinical drug ingredient) Drug/Non Drug Allergy documented on EMR Reaction Allergy Type Onset Date Status No Known Drug Allergy Unknown Drug Allergy Active Results Component Value Reference Range Notes Urine Culture Reviewed date:08/23/2024 08:18:58 AM Interpretation: Performing Lab:[facility], [address] [place] [phone] Notes/Report: O:PROMIR Proteus mirabilis Urine Culture Quant [...] Status W/U Status Risk Notes Problem Overweight (869131492) Overweight (E66.3) Active confirmed His body mass [...] Date Provider Diagnosis Wilfred Maynard III, MD [address] [place] [address] [place] [address] 06/02/2024 Wilfred Maynard Overweight E66.3 ; Prostate [...] is being treated by medical oncology at [facility]. His review of symptoms and tolerating [...] OV Provider Name:Wilfred Maynard, 01/02/2025 09:15:00 AM, [address] [place] [address], [address], Progress Notes * Justin BRICENODOB:[birth year] (69 yo M)Acc No.[id number]:06/02/2024 Progress Notes Patient:?Justin BRICENO Provider:?Wilfred Maynard MD :1955???Age:69 Y???Sex:Male Ike e:06/02/2024 Address:[address] [place] [address] Pcp:PREETI HDEZ Subjective: * Chief Complaints: * [...] single and working. He was born in [place], [place]. He does not drink or smoke. 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 He [...] is being treated by medical oncology at [facility].? His review of symptoms and tolerating [...] Maynard MD Date:?11/2023 Generated for Printi ng/Faleobardog/eTransmitting on:?10/26/2024 10:47 AM EST History and Physical Notes * [...]
--- OUTSIDE RECORDS SUMMARY | 2024-10-26 10:48 | XMS_ITS ---
Author Organization [facility] Address [address] [place] [address] Care Team Providers Care Customs Patrol Officer Name Role Phone Gadiel Tripp Primary Care Provider Unavailab Wilfred Hyde Unavailable [phone] REASON FOR VISIT refill request omeprazole/ out of meds Encounters Encounter Location Date Provider Diagnosis [facility] [address] [place] [address] 10/27/2023 Wilfred Manley PLAN OF TREATMENT No Information
--- OUTSIDE RECORDS SUMMARY | 2024-10-26 10:48 | XMS_ITS ---
Author Organization [facility] Address [address] [place] [address] Care Team Providers Care Cattle Care Worker Name Role Phone Gadiel Tripp Primary Care Provider Unavailab Wilfred Hyde Unavailable [phone] Encounters Encounter Location Date Provider Diagnosis [facility] [address] [place] [address] 05/01/2023 Wilfred Manley PLAN OF TREATMENT No Information
--- OUTSIDE RECORDS SUMMARY | 2024-10-26 10:48 | XMS_ITS ---
Author Organization Wilfred Maynard III, MD Address [address] [facility] [address] Care Team Providers Care Marketing Database Coordinator Name Role Phone PREETI HDEZ Primary Care Provider Unavailab Wilfred Marroquin Unavailable [phone] REASON FOR VISIT Rx Message Social History Sex Assigned At : Social History Observation Description Sex Assigned At Male Encounters Encounter Location Date Provider Diagnosis Wilfred Maynard III, MD [address] [place] [address] [place] [address] 09/04/2024 Wilfred Maynard Plan Of Treatment Next Appt Details Provider Name:Wilfred Maynard, 01/02/2025 09:15:00 AM, [address] [place] [address] [place], [address], Progress Notes * Justin BRICENODOB:[birth year] (69 yo M)Acc No.[id number]:09/04/2024 Patient:?Justin BRICENO :1955???Age:69 Y???Sex:Male Address:[address] [place] [address] * true * Date:? Generated for Printi ng/Faxing/eTransmitting on:?10/26/2024 10:48 AM EST
--- OUTSIDE RECORDS SUMMARY | 2024-10-26 10:48 | XMS_ITS | Clinical Summary ---
Author Organization [facility] Address [address] [place] [address] Care Team Providers Care Sample Book Maker Name Role Phone Unavailable Primary Care Provider [...]
== END 2024-10-26 10:25 | disposition home or self-care (01) ==
PROVIDERS: PCP Physician Assistant; Visit Provider Physician Assistant
DX: C79.51 Secondary malignant neoplasm of bone (principal); F33.2 Major depressive disorder, recurrent severe without psychotic features; I10 Essential (primary) hypertension

== ENCOUNTER → 2024-10-26 09:35 | Outpatient (BNVA) | payer MEDICARE, SELFPAY | PROVIDERS: PCP Physician Assistant; Visit Provider Physician Assistant | DX: C79.51 Secondary malignant neoplasm of bone (principal); F33.2 Major depressive disorder, recurrent severe without psychotic features; I10 Essential (primary) hypertension | CPT/HCPCS: 96127; 99212 ==

== ENCOUNTER 2024-12-21 08:50 | Outpatient (REF) | payer MEDICARE, SELFPAY ==
--- OUTSIDE RECORDS SUMMARY | 2024-12-21 09:21 | XMS_ITS | Clinical Summary ---
Author Organization [facility] Address [address] [place] [address] Care Team Providers Care Tier Truck Driver Name Role Phone Unavailable Primary Care Provider Unavailabl e Surgical History Surgery Date Site/Laterality Comments PROSTATECTOMY PROCEDURE:PROSTATECTOMY Medical History Medical History Date Comments Cancer (CMS/HCC V24, CMS/HCC V28) DX:Cancer (HCC);COMMENT:Prostate, Basal Cell Social History Tobacco Use Types [...] - 2023-2 5 season) 2024 Influenza Vaccine (Season Ended) 2025 RSV Immunization Adult Patie nts (1 - 1-dose 75+ series) 2030 HIB [...] age to complete this topic Meningococcal B Vaccine Aged Out No l onger eligible based on patient's age to complete this topic RSV Immunization Patients Un dejuan 20 months Aged Out No longer eligible b ased on patient's age to complete this topic Varicella Vaccines Aged Out No longer eligible based on patient's age to complete this topic
--- OUTSIDE RECORDS SUMMARY | 2024-12-21 09:21 | XMS_ITS | Clinical Summary ---
Author Organization [facility] Address [address] [place] [address] Care Team Providers Care Test Analyst Name Role Phone Unavailable Primary Care Provider [...]
--- OUTSIDE RECORDS SUMMARY | 2024-12-21 09:21 | XMS_ITS ---
Author Name [facility] Organization Unknown Encounters Encounter Type Encounter Reason Primary Diagnosis Location Date Emergency Pleurodynia Pleurodynia [facility] 2022 Care Team Organization Name Specialty Phone Email Start Date End [facility] 2022 [facility] 04/05/2023 080 02/2023
--- OUTSIDE RECORDS SUMMARY | 2024-12-21 09:21 | XMS_ITS | Patient Health Record ---
Author Organization [facility] Address [address] [place] [address] Care Team Providers Care Inspector Wire Products Name Role Phone Gadiel Tripp Primary Care Provider Unavailab Wilfred Hyde Unavailable [phone] Allergies No Known Allergies Reason For Referral No Information Medications Medication SIG (Take, Route, Frequency, Duration) [...] 20 MG Oral for 10 N ot-Taking Immunizations Vaccine Route Administration Date Status Comme nts Influenza Unknown 06/08/2018 Administered Social History Tobacco Use: Social History Observation Description Date Details (start date - stop date) Never Smoker NA - NA Tobacco Use/Smoking Question Answer Notes Patient is a nonsmoker Section Notes: Nonsmoker x 1 year; no sig a lcohol Nonsmoker x 1 year; no sig a lcohol Nonsmoker; no sig alcohol Nonsmoker; no sig alcohol Problems Problem Type SNOMED Code ICD Code Onset Dates Problem Status W/U Status Risk Notes Problem 741591137 Encounter for screening for malignant neoplasm of colon (Z12.11) Active confirmed Problem 764564292 History of adenomatous polyp of colon (Z86.010) Active confirmed Problem 69426348 Weight loss (R63.4) Active confirmed Problem 55174703 Anorexia (R63.0) Active confirmed Problem Erosive esophagitis (95333089) Erosive esophagitis (K22.10) Active confirmed Problem Gastroesophageal reflux disease (274215964) GERD (gastroesophag eal reflux disease) (K21.9) Active confirmed Problem 245824499614908 Pre-procedural examination (Z01.818) Active confirmed Problem 43739765 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 Plan Of Treatment Future Test Test Name Order Date UPPER GI ENDOSCOPY 07/27/2012 COLONOSCOPY 07/27/2012 COLONOSCOPY 01/20/2019 Insurance Providers Payer Name Payer Address Payer Phone Subscriber Number Group Number Insured Name Patient Relationship to Insured Coverage Start Date Coverage End Date MEDICARE OF [place] [address] [place] [address] [id number] MORGAN WEBER Self - patient is the insured MEDICAID OF [facility] [address] [place] [address] [id number] MORGAN WEBER Self - patient is the insured Medical (General) History Medical History History ICD Code Hx of tubular adenoma & hyperplastic hannah yps removed in 04/2007 GERD-EGD in 1998 with a HH-no Hamilton's Prostate cancer with mets to right ribs-Rx'd with Lupron; previously Rx'd with surgery and XRT Asthma Denies OK,DM,CVA,renal disease Colonoscopy in 08/2012 neg. for polyps [...]
--- OUTSIDE RECORDS SUMMARY | 2024-12-21 09:21 | XMS_ITS ---
Author Organization Wilfred Maynard III, MD Address [address] [facility] [address] Care Team Providers Care Congregational Care Pastor Name Role Phone PREETI HDEZ Primary Care Provider Unavailab Wilfred Marroquin Unavailable [phone] Allergies Allergen (clinical drug ingredient) Drug/Non Drug Allergy documented on EMR Reaction Allergy Type Onset Date Status No Known Drug Allergy Unknown Drug Allergy Active Results Component Value Reference Range Notes Urine Culture Reviewed date:08/23/2024 08:18:58 AM Interpretation: Performing Lab:[facility], [address] [place] [phone] Notes/Report: O:PROMIR Proteus mirabilis Urine Culture Quant [...] Status W/U Status Risk Notes Problem Overweight (932771240) Overweight (E66.3) Active confirmed His body mass [...] Provider Diagnosis Wilfred Maynard III, MD [address] [place] [address] [facility] [place] [address] 06/02/2024 Wilfred Maynard Overweight E66.3 ; Prostate [...] is being treated by medical oncology at [facility]. His review of symptoms and tolerating [...] OV Provider Name:Wilfred Maynard, 01/02/2025 09:15:00 AM, [address] [place] [address], [address], Progress Notes * Justin BRICENODOB:[birth year] (69 yo M)Acc No.[id number]:06/02/2024 Progress Notes Patient:?Justin BRICENO Provider:?Wilfred Maynard MD :1955???Age:69 Y???Sex:Male Ike e:06/02/2024 Address:[address] [place] [address] Pcp:PREETI HDEZ Subjective: * Chief Complaints: * [...] single and working. He was born in [place], [place]. He does not drink or smoke. 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 He [...] is being treated by medical oncology at [facility].? His review of symptoms and tolerating [...] Maynard MD Date:?11/2023 Generated for Printi ng/Faleobardog/eTransmitting on:?12/21/2024 09:21 AM EDT History and Physical Notes * [...]
--- OUTSIDE RECORDS SUMMARY | 2024-12-21 09:21 | XMS_ITS | Patient Health Record ---
Author Organization Wilfred Maynard III, MD Address [address] [address] Care Team Providers Care Reading Tutor Name Role Phone PREETI HDEZ Primary Care Provider Unavailab Wilfred Marroquin Unavailable [phone] Allergies Allergen (clinical drug ingredient) Drug/Non Drug Allergy documented on EMR Reaction Allergy Type Onset Date Status No Known Drug Allergy Unknown Drug Allergy Active Results Component Value Reference Range Notes Urine Culture Reviewed date:08/23/2024 08:18:58 AM Interpretation: Performing Lab:[facility], [address] [place] [address] Notes/Report: O:PROMIR Proteus mirabilis Urine Culture Quant Urine Culture 10,000 to 50,000 cfu/mL Ampicillin <=2 Cefazolin <=4 Ceftriaxone <=0.25 Ciprofloxacin <=0.25 Gentamicin <=1 Nitrofurantoin 128 Trimethoprim/Sulfamethoxaz ole <=20 Complete Blood Count Auto Di ff Reviewed date:01/26/2024 09:40:36 AM Interpretation: Performing Lab:[facility], [address] [place] [address] Notes/Report: White Blood Count 7.4 4.8-10.8 X10*3/uL [...] Panel Reviewed date:01/26/2024 09:40:36 AM Interpretation: Performing Lab:[facility], [address] [place] [address] Notes/Report: Sodium 141 135-145 mmol/L Potassium 4.1 3.3-5.1 mmol/L Chloride 106 96-108 mmol/L Carbon Dioxide 25 22-29 mmol/L Anion Gap 14 12-20 Blood Urea Nitrogen 17 9-16 mg/dL Creatinine 0.72 0.5-1.4 mg/dL Estimated Glomerular Filt Rate > 60 NOTE: For -Filipino individuals, multiply the result by 1.210. Chronic [...] Antigen Reviewed date:01/26/2024 09:40:36 AM Interpretation: Performing Lab:[facility], [address] [place] [phone] Notes/Report: Prostate Specific Antigen 1.14 <0.05-4.0 ng/mL PSA methodology: Portal Profes Alinity i Chemiluminescent Microparticle Immunoassay (CMIA) Complete Blood Count Auto Di ff Reviewed date:03/29/2024 01:07:05 PM Interpretation: Performing Lab:[facility], [address] [place] [address] Notes/Report: White Blood Count 6.7 4.8-10.8 X10*3/uL [...] Panel Reviewed date:03/29/2024 01:05:31 PM Interpretation: Performing Lab:[address] [address] Notes/Report: Sodium 141 135-145 mmol/L Potassium 3.9 3.3-5.1 mmol/L Chloride 105 96-108 mmol/L Carbon Dioxide 28 22-29 mmol/L Anion Gap 12 12-20 Blood Urea Nitrogen 18 9-16 mg/dL Creatinine 0.72 0.5-1.4 mg/dL Estimated Glomerular Filt Rate > 60 NOTE: For -Filipino individuals, multiply the result by 1.210. Chronic [...] Antigen Reviewed date:03/29/2024 01:07:05 PM Interpretation: Performing Lab:[address] [address] Notes/Report: Prostate Specific Antigen 0.47 <0.05-4.0 ng/mL PSA methodology: [place] Alinity i Chemiluminescent Microparticle Immunoassay (CMIA) Testosterone, Total Reviewed date:04/03/2024 02:15:07 PM Interpretation: Performing Lab:[address] [address] Notes/Report: Testosterone, Total 26 250-1100 ng/dL Men with clinically significant hypogonadal symptoms and testosterone values repeatedly in the range of the 200-300 ng/dL or less, may benefit from testosterone treatment after adequate risk and benefits counseling. For additional information, please refer to http://education.[employer].The miqi.cn/faq/ TotalTestosteroneLCMS LABAN941 (This link is being provided for informational/ educational purposes only.) This test was developed and its analytical performance characteristics have been determined by [employer] [place], [place]. It has not been cleared or approved by the U.S. Food and Drug Administration. This assay has been validated pursuant to the CLIA regulations and is used for clinical purposes. THIS TEST WAS PERFORMED AT: [facility] [address] LAURA CASILLAS MD,PHD Urinalysis and Microscopic Reviewed date:08/23/2024 08:18:58 AM Interpretation: Performing Lab:[facility], [address] [place] [phone] Notes/Report: Color Urine Yellow Appearance Urine Clear PH 6.0 5.0-9.0 Glucose Urine UA Negative Negative mg/dL Urine Blood Negative Negative Specific [place] - Urine 1.015 1.005-1.025 Urine Protein Negative [...] Speciality Internal M edicine Referred Provider Me Rosa Isela dical Oncology Referred Provider Specialty Medical Onco [...] MRI, CT, progress note and referral to [facility] Oncology Anna Tello 02/29/2024 03:08:35 PM EDT > Received fax from [facility] Medical Oncology patient is scheduled to be [...] morning meal Orally Once a day Active Darolutamide 300 MG 2 tablets Orally Twice a day Active Vitamin D3 25 MCG (1000 UT) TAKE 1 TABLET BY MOUTH EVERY DAY Active Social History Tobacco Use: Social History [...] Status W/U Status Risk Notes Problem Overweight (455612141) Overweight (E66.3) Active confirmed His body mass index is slightly over 25. He has lost weight recently. IRs and to maintain his weight at this level to a healthy nutritious diet. Problem 98403778 Hyperglycemia (R73.9) Active confirmed Most recent glucose is 116. This will be followed carefully. A hemoglobin A1c will be ordered. Problem 867681176 Prostate cancer (C61) Active confirmed He has begun a new regimen of leuprolide and docetaxel and darolutamide. His PSA is low and likely not a reliable way to follow malignancy. He is being treated by medical oncology at [facility]. His review of symptoms and tolerating his treatment well. We have requested the records. Problem Anemia (908380350) Anemia, unspecified (D64.9) Active confirmed His hemoglobin and hematocrit are now in the normal range and this problem has resolved. Problem Vitamin D deficiency (07067217) Vitamin D deficiency, unspecified (E55.9) Active confirmed He was continued on vitamin D. He is known to have osteopenia. Problem 969462349 Skin cancer, basal cell (C44.91) Active confirmed There is no sign of any new skin cancer. Problem 89290352 Incontinence (R32) Active confirmed He continues to have intermittent incontinence of urine. He has adapted to this and is unimpaired and daily living. Problem 125056671 Osteopenia (M85.80) Active confirmed He will continue on his current regimen. He will be followed for osteoporosis. He is at risk due to a low testosterone. I recommended 500 mg of calcium twice a day with vitamin D. Problem 121443786 Benign prostatic hypertrophy (N40.0) Active confirmed He rises from sleep once or twice a night to urinate. He is occasionally incontinent. We discussed lifestyle modifications way to reduce nocturia. Problem 55773021 Reactive depression (F32.9) Active confirmed He will [...] of medical oncology and prostate cancer management. Problem 421623133 Weight loss, unintentional (R63.4) Active confirmed He has lost 10 pounds since last May. He says he is eating well. Comprehensive blood work with thyroid function tests were ordered. He remains slightly overweight. Vital Signs Heart Rate 77 /min 09/04/2024 Temperature 96.8 degrees Fahrenheit 09/04/2024 Blood pressure diastolic 75 mm Hg 09/04/2024 Height 74 in 09/04/2024 Blood pressure systolic 140 mm Hg 09/04/2024 Weight 196 lbs 09/04/2024 BMI 25.16 kg/m2 09/04/2024 Encounters Encounter Location Date Provider Diagnosis Wilferd Maynard III, MD [address] [place] [address] [address] [place], [place] [address] 01/26/2024 Wilfred Maynard Overweight E66.3 ; S kin cancer, basal cell C44.91 ; Prostate cancer C61 ; Incontinence R32 ; Osteopenia M85.80 and Benign prostatic hypertrophy N40.0 Wilfred Maynard III, MD [address] [place] [address] [place] [address] 02/11/2024 Wilfred Maynard Overweight E66.3 ; Prostate cancer C61 ; Skin cancer, basal cell C44.91 ; Incontinence R32 ; Osteopenia M85.80 ; Benign prostatic hypertrophy N40.0 ; Reactive depression F32.9 and Vitamin D deficiency, unspecified E55.9 Wilfred Maynard III, MD [address] [place] [address] [place] [address] 02/25/2024 Wilfred Maynard Overweight E66.3 ; Prostate cancer C61 ; Benign prostatic hypertrophy N40.0 ; Osteopenia M85.80 ; Incontinence R32 ; Skin cancer, basal cell C44.91 and Reactive depression F32.9 Wilfred Maynard III, MD [address] [place] [address] [place] [address] 03/10/2024 Wilfred Maynard Overweight E66.3 ; Prostate cancer C61 ; Hyperglycemia R73.9 ; Osteopenia M85.80 ; Incontinence R32 and Vitamin D deficiency, unspecified E55.9 Wilfred Maynard III, MD [address] [place] [address] [place] [address] 03/31/2024 Wilfred Maynard Overweight E66.3 ; Prostate cancer C61 ; Osteopenia M85.80 ; Benign prostatic hypertrophy N40.0 and Reactive depression F32.9 Wilfred Maynard III, MD [address] [place] [address] [place] [address] 06/02/2024 Wilfred Maynard Overweight E66.3 ; Prostate cancer C61 ; UTI symptoms R39.9 ; Incontinence R32 ; Osteopenia M85.80 ; Skin cancer, basal cell C44.91 and Benign prostatic hypertrophy N40.0 Wilfred Maynard III, MD [address] [place] [address] [place] [address] 09/04/2024 Wilfred Maynard Overweight E66.3 ; Prostate cancer C61 ; Weight loss, unintentional R63.4 ; Incontinence R32 and Anemia, unspecified D64.9 Wilfred Maynard III, MD [address] [place] [address] [place] [address] 02/10/2024 Wilfred Maynard III, MD [address] [place] [address] [address] [place] [address] 02/15/2024 Wilfred Maynard III, MD [address] [place] [address] [address] [place] [address] 02/17/2024 Wilfred Maynard III, MD [address] [place] [address] [address] [place] [address] 09/04/2024 Wilfred Maynard Assessments Encounter Date Diagnosis (ICD Code) Assessment Notes Treat ment Notes Treatment Clinical Notes 01/26/2024 Overweight (ICD-10 - E66.3) His body [...] disease has become aggressive. Dr. Nur at [facility] has kknown him formay years and recommended [...] is being treated by medical oncology at [facility]. His review of symptoms and tolerating his treatment well. We have requested the records. 09/04/2024 Overweight (ICD-10 - E66.3) His body [...] is being treated by medical oncology at [facility]. His review of symptoms and tolerating his treatment well. We have requested the records. 01/26/2024 Prostate cancer (ICD-10 - C61) He [...] have a urine analysis and urine culture. 09/04/2024 Weight loss, unintentional (ICD-10 - R63.4) He has lost 10 pounds since last May. He says he is eating well. Comprehensive blood work with thyroid function tests were ordered. He remains slightly overweight. 01/26/2024 Incontinence (ICD-10 - R32) He continues [...] and is unimpaired and daily living. 09/04/2024 Incontinence (ICD-10 - R32) He continues [...] calcium twice a day with vitamin D. 09/04/2024 Anemia, unspecified (ICD-10 - D64.9) His hemoglobin and hematocrit are now in the normal range and this problem has resolved. 01/26/2024 Benign prostatic hypertrophy (ICD-10 - N40.0) [...] Order Date PROFILE, FASTING (COMPREHENSIVE METABOLI C) 03/04/2022 PROFILE, FASTING (COMPREHENSIVE METABOLI C) 06/21/2023 PROFILE, FASTING (COMPREHENSIVE METABOLI C) 12/03/2021 PROFILE, FASTING (COMPREHENSIVE METABOLI C) 05/05/2023 PROFILE, FASTING (COMPREHENSIVE METABOLI C) 10/09/2020 PROFILE, RANDOM (COMPREHENSIVE METABOLIC ) 08/25/2023 PROFILE, RANDOM (COMPREHENSIVE METABOLIC ) 07/10/2020 PROFILE, RANDOM (COMPREHENSIVE METABOLIC ) 11/24/2019 PROFILE, RANDOM (COMPREHENSIVE METABOLIC ) 04/24/2020 PROFILE, RANDOM (COMPREHENSIVE METABOLIC ) 01/15/2021 PROFILE, RANDOM (COMPREHENSIVE METABOLIC ) 05/19/2023 PROFILE, RANDOM (COMPREHENSIVE METABOLIC ) 12/31/2022 PROFILE, RANDOM (COMPREHENSIVE METABOLIC ) 02/22/2020 HEMOGLOBIN A1C (GLYCOHEMOGLOBIN) 023 LIPID PANEL 10/09/2020 LIPID PANEL 03/04/2022 LIPID PANEL 11/24/2019 LIPID PANEL 05/05/2023 PSA, TOTAL 02/22/2020 PSA, TOTAL 08/25/2023 PSA, TOTAL 10/09/2020 PSA, TOTAL 07/10/2020 PSA, TOTAL 06/21/2023 PSA, TOTAL 03/04/2022 PSA, TOTAL 12/03/2021 PSA, TOTAL 11/24/2019 PSA, TOTAL 04/24/2020 PSA, TOTAL 01/15/2021 PSA, TOTAL 05/19/2023 PSA, TOTAL 05/05/2023 PSA, TOTAL 12/31/2022 CBC w DIFF 05/19/2023 CBC w DIFF 05/05/2023 CBC w DIFF 12/31/2022 CBC w DIFF 02/22/2020 CBC w DIFF 10/09/2020 CBC w DIFF 07/10/2020 CBC w DIFF 03/04/2022 CBC w DIFF 12/03/2021 CBC w DIFF 11/24/2019 CBC w DIFF 04/24/2020 CBC w DIFF 01/15/2021 SED RATE (ESR) 05/05/2023 URINALYSIS (UA) 06/02/2024 TESTOSTERONE, TOTAL 06/29/2022 TESTOSTERONE, TOTAL 07/10/2020 TESTOSTERONE, TOTAL 03/04/2022 NUC WHOLE BODY SCAN BONE 04/12/2023 XR LUMBAR SPINE 4+ VIEWS 12/31/2022 XR LUMBAR SPINE 4+ VIEWS 12/31/2022 XR RIBS BILATERAL 12/31/2022 XR RIBS BILATERAL 12/31/2022 BONE DENSITY DEXA 12/31/2022 VITAMIN D 25-OH TOTAL 05/05/2023 CBC WITH AUTO DIFF 08/25/2023 CBC WITH AUTO DIFF 06/21/2023 Lipid Panel 06/21/2023 Lipid Panel 12/03/2021 Testosterone, Free/Total 01/15/2021 Next Appt Details Provider Name:Wilfred Maynard, 01/02/2025 09:15:00 AM, [address] [place] [address] , [place], [place], [address], Insurance Providers Payer Name Payer Address Payer Phone Subscriber Number Group Number Insured Name Patient Relationship to Insured Coverage Start Date Coverage End Date MEDICARE NGS [address] [place] [phone] [id number] Justin Briceno Self - patient is the insured Medical (General) History Medical History History ICD Code basal cell cancer, chest sebaceous cysts stage IV adenocarcinoma prostate Yarnell 7 (4+3 ) GERD depression hyperlipidemia osterarthritis left knee 2018 The patient has a history of prostate cancer and is currently under treatment. Surgical History Surgery Date(Month/Year) biopsy of prostate 2006 radical prostatectomy 2008 Prostate removal surgery 18 years ago No history Hospitalization History Reason Date(Month/Year) Shortness of breath 01/2020 Shortness of breath 04/2020 No history
--- OUTSIDE RECORDS SUMMARY | 2024-12-21 09:22 | XMS_ITS ---
Author Organization Wilfred Maynard III, MD Address [address] [place] [address] Care Team Providers Care Casino Floor Runner Name Role Phone PREETI HDEZ Primary Care Provider Unavailab Wilfred Marroquin Unavailable [phone] Allergies Allergen (clinical drug ingredient) Drug/Non Drug [...] Problem Status W/U Status Risk Notes Problem 597108172 Weight loss, unintentional (R63.4) Active confirmed He has lost 10 pounds since last May. He says he is eating well. Comprehensive blood work with thyroid function tests were ordered. He remains slightly overweight. Problem Anemia (026572795) Anemia, unspecified (D64.9) Active confirmed His hemoglobin [...] Date Provider Diagnosis Wilfred Maynard III, MD [address] [place] [address] [place] [address] 09/04/2024 Wilfred Maynard Overweight E66.3 ; Prostate [...] is being treated by medical oncology at [facility]. His review of symptoms and [...] condition. Provider Name:Wilfred Maynard, 01/02/2025 09:15:00 AM, [address] [place] [address], [address], Progress Notes * TIAJustin ShielaDOB:[birth year] (69 yo M)Acc No.[id number]:09/04/2024 Progress Notes Patient:?BRICENOJustin AVILES Provider:?Wilfred Maynard MD :1955???Age:69 Y???Sex:Male Ike e:09/04/2024 Address:[address] [place], [place] [id number] Pcp:PREETI HDEZ Subjective: * Chief Complaints: * [...] single and working. He was born in [place], [place]. He does not drink or smoke. 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 His review of symptoms and [...] Maynard MD Date:?01/2025 Generated for Luís raygoza/Dennis/eTransmitting on:?12/21/2024 09:22 AM EDT History and Physical Notes * [...]
--- OUTSIDE RECORDS SUMMARY | 2024-12-21 09:22 | XMS_ITS ---
Author Organization [facility] Address [address] [place] [address] Care Team Providers Care Access Director Name Role Phone Gadiel Tripp Primary Care Provider Unavailab Wilfred Hyde Unavailable [phone] REASON FOR VISIT refill request omeprazole/ out of meds Encounters Encounter Location Date Provider Diagnosis [facility] [address] [place] [address] 10/27/2023 Wilfred Manley Plan Of Treatment No Information Progress Notes * MORGAN WEBERDOB: [birth year] (68 yo M)Acc No.[id number]:10/27/2023 Patient:?MORGAN WEBER :1955???Age:68 Y???Sex:Male Address:[address] [place] [address] * true * Date:? Generated for Luís raygoza/Dennis/eTransmitting on:?12/21/2024 09:22 AM EDT
--- OUTSIDE RECORDS SUMMARY | 2024-12-21 09:22 | XMS_ITS ---
Author Organization Wilfred Maynard III, MD Address [address] [place] [address] Care Team Providers Care Data Scientist Name Role Phone PREETI HDEZ Primary Care Provider Unavailab Wilfred Marroquin Unavailable [phone] REASON FOR VISIT Rx Message Social History Sex Assigned At : Social History Observation Description Sex Assigned At Male Encounters Encounter Location Date Provider Diagnosis Wilfred Maynard III, MD [address] [place] [address] [place] [address] 09/04/2024 Wilfred Maynard Plan Of Treatment Next Appt Details Provider Name:Wilfred Maynard, 01/02/2025 09:15:00 AM, [address] [place] [address] [place], [address], Progress Notes * Justin BRICENODOB:[birth year] (69 yo M)Acc No.[id number]:09/04/2024 Patient:?Justin BRICENO :1955???Age:69 Y???Sex:Male Address:[address] [place] [address] * true * Date:? Generated for Printi ng/Faxing/eTransmitting on:?12/21/2024 09:21 AM EDT
[2024-12-21 11:13] LABS: Hematocrit 38.2 % (42.0-52.0); Hemoglobin 12.6 g/dl (14.0-18.0); Mean Corpuscular Hemoglobin 30.5 pg (27.0-33.0); Mean Corpuscular Volume 92.5 fL (80.0-98.0); Mean Platelet Volume 10.1 fL (9.4-12.4); Platelet Count 319 X10*3/uL (160-400); Red Blood Count 4.13 X10*6/uL (4.60-5.80); Red Cell Distribution Width 13.3 % (11.0-16.0); White Blood Count 7.9 X10*3/uL (4.8-10.8)
[2024-12-21 12:05] LABS: Alanine Aminotransferase 7 U/L (0-40); Albumin Level 4.3 g/dL (3.5-5.0); Alkaline Phosphatase 130 U/L (39-117); Anion Gap 15 (12-20); Aspartate Amino Transferase 19 U/L (5-37); Bilirubin Total 0.4 mg/dL (0.0-1.0); Blood Urea Nitrogen 17 mg/dL (9-16); Carbon Dioxide 23 mmol/L (22-29); Chloride 105 mmol/L (96-108); Cholesterol 221 mg/dL (<200); Estimated Glomerular Filt Rate > 60; Glucose Fasting 110 mg/dL (60-99); HDL Cholesterol 40 mg/dL (>40); LDL Cholesterol Calculated 159 mg/dL (<100); Potassium 3.5 mmol/L (3.3-5.1); Sodium 139 mmol/L (135-145); Total Protein 7.9 g/dL (6.5-8.0); Triglycerides 111 mg/dL (<150)
== END 2024-12-21 08:51 | disposition home or self-care (01) ==
LOC: HO.10HDL 08:50
PROVIDERS: Visit Provider Physician Assistant
DX: I10 Essential (primary) hypertension (principal); E78.00 Pure hypercholesterolemia, unspecified
CPT/HCPCS: 36415; 80053; 80061; 85027

== ENCOUNTER 2024-12-25 10:55 | Outpatient (AMB) | payer MEDICARE, MEDICAID, SELFPAY ==
--- NOTE | 2024-12-25 11:19 | MHC.PC.OV ---
Vital Signs 12/25/24 11:20 Height 6 ft 3 in Weight 176 lb 2 oz BMI 22.0 BP 120/72 Blood Pressure Location Rt brachial Position Sitting Pulse 67 Pulse Source Pulse Oximeter Temp 97.3 F Temp Source Temporal Artery Scan Pulse Oximetry (%) 96 Oxygen Delivery Method Room Air Intake Visit Reasons: f/u pain managment/ prostate cancer Intake Note: Patient is here to follow up on pain management, prostate cancer. Profiling Machine Operator Required: No Precision Assembler Bench: Not Required per policy Accompanied by: Self / Same As Patient Allergies Gxrcrnu-EMY-YfS Reductase Inhibitor Adverse Reaction (Intermediate, Verified 12/25/24 11:41) Joint and muscle pain Medication List - Last Reconciled 12/25/24 by Gadiel Tripp PA-C amlodipine 5 mg (2 x 2.5 mg) PO DAILY 30 days cholecalciferol (vitamin D3) 25 mcg PO DAILY dexamethasone mg PO escitalopram oxalate 20 mg PO DAILY 30 days omeprazole 40 mg PO DAILY oxycodone 10 mg PO Q4H PRN 28 days Tobacco use date assessed: 12/25/24 Fall risk assessment: No Falls in past year Last assessed Fall Risk: 12/25/24 Dental Screening Dental Screen Date: 10/26/24 HPI f/u pain managment/ prostate cancer HPI Details Patient is 69 -year-old male here today for follow-up visit. Patient has a past medical history significant for hyperlipidemia, prostate cancer with Mets to rib, hypertension and major depressive disorder. Concern-- > he reports over the last week feeling somewhat tired and under the weather. He reports he has lost weight and has a low appetite. He continues to be followed by oncology for his metastatic prostate cancer. He recently had gotten repeat PET scan imaging in his awaiting results Prostate cancer with metastasis to bone:? INTERVAL HISTORY---> Continues to oncologist and urologist. Most recent PSA were slightly elevated. PET scan showed metastasize lesion on a single rib. thoracic MRI showing-->Extensive enhancing osseous metastatic disease involving the T7, T8, and to a lesser extent the T6 spinal elements as well as the right seventh eighth ribs and right seventh and eighth costovertebral junctions. He is then followed up with radiologist at [facility] though was not a candidate for radiation. He has started chemotherapy at [facility] oncology (Dr. Nur) recommended--> pain management with oxycodone 10 mg every 4 hours as needed, dexamethasone 2 mg in the morning and Tylenol a 1000 TID.. He has finished chemotherapy a few weeks ago. Does have side effects such as fatigue, bilateral lower extremity weakness and pain. PET SCAN AUGUST OF 2024 WHICH DID NOT SHOW ANY RECURRENT METASTATIC DISEASE .. .. Major depressive disorder: He continues on Lexapro 20 mg with decent affect. Still is somewhat depressed though has been stable He is not interested in establishing with a mental health therapist or psychiatrist at this time. He mentions he would like to start walking again to help him with his mental health [facility] Medical History Pure hypercholesterolemia Benign essential hypertension BRBPR (bright red blood per rectum) Pathologic rib fracture Acute upper gastrointestinal bleeding Annual physical exam Cough Right shoulder pain Prostate cancer Borderline high cholesterol Other forms of dyspnea Achilles tendon pain Hypogonadism in male HTN (hypertension) MDD (major depressive disorder), recurrent episode Anxiety Asthma Prostate cancer metastatic to bone Surgical History H/O endoscopy H/O prostatectomy Family History Father Pneumonia Substance abuse Mother CAD (coronary artery disease) CHF (congestive heart failure) Brother Stomach cancer Substance abuse Sister Breast cancer Substance abuse Social History Household Members: Friend(s) Housing: House Do you presently have visiting nurse or other home services: No Alcohol intake: unknown Patient Tobacco Use Status: Never used Tobacco Years Smoked: 40 yrs e-Cigarette/Vaping Use: Never Used Second Hand Smoke Exposure: No Substance Use Type: Marijuana service: No Current occupational status: unemployed Current occupation: [employer] for himself Cognitive needs: No Hearing needs: No Vision needs: Yes (Pt went to an eye doctor about 4 years ago. ) Questionnaire PHQ-9 Over the last 2 weeks, how often have you been bothered by any of the following problems? 1. Little interest or pleasure in doing things: more than half the days 2. Feeling down, depressed, or hopeless: more than half the days 3. Trouble falling or staying asleep, or sleeping too much: more than half the days 4. Feeling tired or having little energy: more than half the days 5. Poor appetite or overeating: more than half the days 6. Feeling bad about yourself - or that you are a failure or have let yourself or your family down: more than half the days 7. Trouble concentrating on things, such as reading the newspaper or watching television: not at all 8. Moving or speaking so slowly that other people could have noticed. Or the opposite - being so fidgety or restless that you have been moving around a lot more than usual: several days 9. Thoughts that you would be better off or of hurting yourself in some way: several days Total score: 14 Depression Screening Interpretation: Positive Depression Screening Follow-up: Existing condition and Declines treatment Depression Screening Done: Yes 18956 - PHQ-9 Billing: Yes Source: Developed by Drs. Wilfred Obando, Darshana Vaz, Chip Maya and colleagues, with an educational damion from [employer]. Thrive Questionnaire Date Thrive assessed: 10/26/24 I am a: Patient What is your living situation today?: I have a steady place to live Within the past 12 months, did the food you bought not last and you didn't have the money to get more?: Never true Within the past 12 months, did you worry whether your food would run out before you got money to buy more?: Never true Do you have trouble paying for medicines?: No Do you have trouble getting transportation to medical appointments?: No Do you have trouble paying your heating and electricity bill?: No Do you have trouble taking care of your child, family member or friend?: No Do you have trouble with day-to-day activities such as bathing, preparing meals, shopping, managing finances, etc.?: Yes Are you currently unemployed and looking for a job?: No Are you interested in more education?: No Please select the resources that you would like help with: None Currently or been in a relationship where the following occur: No concerns reported THRIVE Score: 0 AUDIT C Alcohol Use Questionnaire (AUDIT-C) 1. How often do you have a drink containing alcohol?: Monthly or less 2. How many drinks containing alcohol do you have on a typical day when you are drinking?: 1 or 2 3. How often do you have six or more drinks on one occasion?: Never Total Score: 1 GABRIELE-7 AMB Questionnaire GABRIELE-7 Date GABRIELE - 7 assessed: 12/25/24 Feeling nervous, anxious, or on edge: 2 = More than half the days Not being able to stop or control worryin = More than half the days Worrying too much about different things: 2 = More than half the days Trouble relaxin = More than half the days Being so restless that it is hard to sit still: 1 = Several days Becoming easily annoyed or irritable: 1 = Several days Feeling afraid as if something awful might happen: 1 = Several days Total GABRIELE-7 score (0-4 normal; 5-9 mild; 10-14 moderate; 15-21 severe): 11 Source: Developed by Drs. Wilfred Obando, Darshana Vaz, Chip Maya and colleagues, with an educational damion from [employer]. GABRIELE-7 Assessment Billing GABRIELE-7 Assessment Tool: GABRIELE-7 Assessment 99594 Physical exam (Primary Care) Vital Signs: Last Vital Signs Temp 97.3 F 12/25/24 11:20 Pulse 67 12/25/24 11:20 BP 120/72 12/25/24 11:20 Pulse Ox 96 12/25/24 11:20 Oxygen Delivery Method Room Air 12/25/24 11:20 BMI result Body Mass Index 22.0 Tobacco/Smoking Status: Tobacco use Status Tobacco use date assessed 12/25/24 12/25/24 11:25 Patient Tobacco Use Status Never used Tobacco 12/25/24 11:25 e-Cigarette/Vaping Use Never Used 12/25/24 11:25 PHQ-9: PHQ-9 Score PHQ-9: Total score 14 12/25/24 11:43 Depression Screening Interpretation: Positive Depression Screening Follow-up: Existing condition and Declines treatment Thrive Assessment: Date of Thrive Assessment Date Thrive assessed 10/26/24 12/25/24 11:25 Currently or been in a relationship where the following occur: No concerns reported Coding Level of Care Code Est Pt Level 3 (91215) Diagnoses Weight loss R63.4 Metastatic cancer to spine C79.51 Additional Codes PHQ-9 - 58921 - PHQ-9 Billing: Yes ([id number]) GABRIELE-7 Assessment Billing - GABRIELE-7 Assessment Tool: GABRIELE-7 Assessment 50691 ([id number]) Assessment & Plan Assessment & Plan (1) Weight loss: Code(s): R63.4 - Abnormal weight loss Category: Medical Plan: Noted weight loss likely due to low appetite and fatigue. Recent labs without any significant abnormality. ADVISED HE MAY WANT TO BE SEEN AT THE HOSPITAL FOR IV HYDRATION THOUGH PATIENT WOULD LIKE TO HOLD OFF ON THIS FOR NOW. Will send for viral testing (2) Metastatic cancer to spine: Code(s): C79.51 - Secondary malignant neoplasm of bone Category: Medical Plan: As per HPI patient has prostate cancer with Mets to spine and rib. He continues managing his pain with both Tylenol and oxycodone. He is still reports pretty significant body pain and we did discuss the role of narcotic pain medication in cancer related pain treatment. He has finished chemotherapy , continues on Lupron injections He seems to be having some side effects from chemotherapy including fatigue, malaise in bilateral lower extremity pain and weakness. HE IS AWAITING REPEAT PET SCAN IMAGE RESULTS THERE IS CONCERN FOR RECURRENCE OF HIS CANCER Orders: Orders SARS-CoV2/FLU/RSV 12/25/24 R63.4 - Abnormal weight loss, R68.83 - Chills (without fever), R09.89 - Other specified symptoms and signs involving the circulatory and respiratory systems
[2024-12-25 11:20] VITALS: BP 120/72; PULSE 67; TEMP 36.3; O2SAT 96; BMI 22.0
--- OUTSIDE RECORDS SUMMARY | 2024-12-25 13:08 | XMS_ITS | Clinical Summary ---
Author Organization [facility] Address [address] [place] [address] Care Team Providers Care Spinner Box Name Role Phone Unavailable Primary Care Provider [...]
--- OUTSIDE RECORDS SUMMARY | 2024-12-25 13:08 | XMS_ITS | Clinical Summary ---
Author Organization [facility] Address [id number] [place] [id number] Care Team Providers Care Stock Fitter Name Role Phone Unavailable Primary Care Provider [...]
== END 2024-12-25 11:54 | disposition home or self-care (01) ==
LOC: HO.HMCH 10:56
PROVIDERS: PCP Physician Assistant; Visit Provider Physician Assistant
DX: R63.4 Abnormal weight loss (principal); C79.51 Secondary malignant neoplasm of bone

== ENCOUNTER → 2024-12-25 10:55 | Outpatient (BNVA) | payer MEDICARE, SELFPAY | PROVIDERS: PCP Physician Assistant; Visit Provider Physician Assistant | DX: R63.4 Abnormal weight loss (principal); C79.51 Secondary malignant neoplasm of bone | CPT/HCPCS: 96127; 99212 ==

== ENCOUNTER 2025-03-27 10:35 | Outpatient (AMB) | payer MEDICARE, MEDICAID, SELFPAY ==
--- OUTSIDE RECORDS SUMMARY | 2025-03-06 10:30 | XMS_ITS | Encounter Summary ---
Author Organization [facility] Address [address] [facility] [address] [place] [address] Phone Care Team Providers Care Shearing Machine Operator Name Role Phone Wilfred Maynard MD Unavailable [phone] Vira Nur MD Unavailable [phone] Gadiel Tripp Unavailable Wilfred Maynard MD Unavailable [phone] Leslie Coello RN Unavailable [email or web address] Unavailable [phone] Gadiel Tripp Primary Care Provider + Reason for Visit * Auth/Cert (Routine) Specialty Diagnoses / Procedures Referred By Sarah t Referred To Contact Referral ID Status Reason Start Date Expiration Date Visits Re quested Visits Authorized [id number] 1 1 Encounter Details Date Type Department Care Team (Late st Contact Info) Description 03/06/2025 10:30 AM EDT Home Care Visit [facility] [address] [place] [address] Ela Bran RN [address], [place] [phone] SN OASIS RECERTIFICATION/FUP Social History Tobacco Use Types Packs/Day Years Used Date Smoking Tobacco: Never Smokeless Tobacco: Never Alcohol Use Standard Drinks/Week Comments Not Currently 0 (1 standard drink = 0.6 oz pur e alcohol) Home Health Assessment: Transportation Answer Date Recorded Lack of Transportation (Medical) No 02/28/2025 Lack of Transportation (Non-Medical) No 02/28/2025 Patient Unable or Declines to Respond No 02/28/2025 Child or Family Care Answer Date Record ed Do you have problems with on e of the following making it difficult for you to work, study, or receive health care? No 05/11/2023 Education Answer Date Recorded Are you interested in more education? Not on rohan e 12/24/2022 Are you concerned about learning? Not on file 12/24/2022 No 12/24/2022 No 12/24/2022 Food Answer Date Recorded Within the past 6 months we worried whether our food would run out before we got money to buy more. Never True 02/13/2025 Within the past 6 months the food we bought just didn't last and we didn't have enough money to get more. Never True Residential Stability Answer Date Recor ded What is your housing situation today? I have yaniv sing 02/13/2025 How many times have you move d in the past 12 months? Zero (I did not move) 02/13/2025 Paying for Meds Answer Date Recorded Do you have trouble paying for medicines? No 02/13/2025 Paying Utility Bills Answer Date Record ed Do you have trouble paying your heating or elect ricity bill? No 02/13/2025 Transportation Answer Date Recorded Has the lack of transportati on kept you from medical appointments or from getting medications? No 02/13/2025 Digital Access Answer Date Recorded Yes 02/13/2025 Yes 02/13/2025 Do you have reliable internet access at home? No 02/13/2025 Do you have a device (e.g., phone, tablet, computer) with a working camera? Yes 02/13/2025 Intimate Partner Violence Answer Date R ecorded Are you denied basic needs s uch as food, clothing, or medical care? No 02/13/2025 In the past 12 months have y ou been in a relationship with a person who hurts, threatens, or tries to control you? No 02/13/2025 Are you denied basic needs s uch as food, clothing, or medical care? No 02/13/2025 In the past 12 months have y ou been in a relationship with a person who hurts, threatens, or tries to control you? No 02/13/2025 Sex and Gender Information Value Date Recorded Sex Assigned at Male 04/16/2023 5:28 PM EDT Legal Sex Male 7:12 PM EST Gender Identity Male 04/16/2023 5:28 PM EDT Sexual Orientation Straight 04/16/2023 5: 28 PM EDT documented as of this encounter Plan of Treatment Upcoming Encounters Date Type Department Care Team (Late st Contact Info) Description 03/28/2025 4:00 AM EDT Home Care Visit [facility] [address] [place] [phone] Ela Bran RN [address] [place] [phone] [email or web address] 04/04/2025 3:00 AM EDT Home Care Visit [facility] [address] [place] [phone] Ela Bran RN [address] [place] [phone] [email or web address] 04/11/2025 3:00 AM EDT Home Care Visit [facility] [address] [place] [phone] Ela Bran RN [address] [place] [address] [email or web address] 04/18/2025 1:30 AM EDT Home Care Visit [facility] [address] [place] [phone] Ela Bran RN [address] [place] [phone] [email or web address] 04/25/2025 1:00 AM EDT Home Care Visit [facility] [address], [place] [phone] Ela Bran RN [address] [place] [address] [email or web address] 05/02/2025 Home Care Visit [facility] [address], [place] [phone] Ela Bran RN [address] [place] [address] [email or web address] 05/07/2025 Appointment [facility] [address], [place] [phone] Ela Bran RN [address] [place] [address] documented as of this encounter Visit Diagnoses Not on filedocumented in this encounter Home Health Visit - Care Plan Visit Details Visit Type -SN OASIS RECERTI FICATION/FUP Discipline -Alf Problems Problem Description Start Date Status Goals Interve ntions HH - Medication Management Disciplines: All Active Home Health Disciplines 01/08/2025 Active 1 goal linked to scheduled/document ed intervention 2 goal interventions scheduled/document ed in this visit HH - Focus of Care and Teaching Disciplines: All Active Home Health Disciplines w/RD 01/08/2025 Active 1 goal linked to scheduled/document ed intervention 1 goal intervention scheduled/document ed in this visit HH - Emergency Planning - Knowledge of Disciplines: All Active Home Health Disciplines 01/08/2025 Active 1 goal linked to scheduled/document ed intervention 2 goal interventions scheduled/document ed in this visit HH - Standard of Care Disciplines: All Active Home Health Disciplines 01/08/2025 Active 1 goal linked to scheduled/document ed intervention 2 goal interventions scheduled/document ed in this visit Goals Goal Associated Problem Outcome Goal Met? Visit Notes HH - Safe medication management, avoid unnecessary harm related to medication errors and/or interactions HH - Medication Management No HH - Communication and collaboration to achieve patient goals HH - Focus of Care and Teaching No HH - Knowledge of options for managing care in the event of an emergency related situation. HH - Emergency Planning - Knowledge of No HH - Achieve care management for a safe to home/community discharge from homecare HH - Standard of Care No Interventions Intervention Associated Problem/Goal Status Variance Visit Notes HH - I/E medication management: administration, purpose, dosages, preparation, setup, scheduling, side effects, food/drug interactions, and potential complications as indicated Description: Update patient's copy of medication list as needed. Problem:HH - Medication Management Goal:HH - Safe medication management, avoid unnecessary harm related to medication errors and/or interactions Completed HH - Complete medication review every visit and medication reconciliation as indicated. Pharmacy information: Description: [facility] Problem:HH - Medication Management Goal:HH - Safe medication management, avoid unnecessary harm related to medication errors and/or interactions Completed HH - Focus of care, teaching completed and plan for next visit Problem:HH - Focus of Care and Teaching Goal:HH - Communication and collaboration to achieve patient goals Completed Primary Clinical Focus this Visit & Instruction Provided: 69 old male seen for recertification. Patient has beed seen once for JOYCE. Pmh includes anxiety, bph, depression, gerd, hld, htn. He continue on ADT w/ Lupron/Darolutamide for treatment of prostates cancer metastatis back bone. Patient is alert and oriented x3. VSS. He continue t report high pain and managing pain with fentanyl and oxycodone. Patient states pain is a bit control that last week. He continue to reports nausea since last seen and vomiting a couple of days ago. SN educated patient to take all medication as prescribed. Instruction Provided to: patient Response to Instruction/Teachin g: Is partially able to teach back topics as evidenced by Verbalizes understaning. Plan for Next Visit Specific Focus & Education Needed: Pain mangement, medication teaching, nausea, and safety New Orders: Recert Updated Discharge Plan: Patient will be discharge when pain is undercontrol HH - I/E management of care in an urgent or emergency (ER) situation: When to call your Home Care Team/911, ER plans, supplies, evacuation, when to contact local ER officials and how to stay informed Problem: - Emergency Planning - Knowledge of Goal:HH - Knowledge of options for managing care in the event of an emergency related situation. Completed - Emergency planning assessment: the emergency plan, supplies needed, emergency contact numbers and an evacuation plan were reviewed Description: Patient is/are knowledgeable of emergency plans. Problem:HH - Emergency Planning - Knowledge of Goal:HH - Knowledge of options for managing care in the event of an emergency related situation. Completed HH - Assess vital signs, pulse oximetry, pain, and as indicated, orthostatic vital signs Description: use agency-specific parameters Problem:HH - Standard of Care Goal:HH - Achieve care management for a safe to home/community discharge from homecare Completed HH - Assess skin integrity Problem:HH - Standard of Care Goal:HH - Achieve care management for a safe to home/community discharge from homecare Completed documented in this encounter Care Teams Shearing Machine Operator Relationship Specialty Start Date End Date Gadiel Tripp PA [address] [place] [address] PCP - General Physician French Binding Folder 12/19/24 Wilfred Maynard MD [address] [place] [phone] Referring Physician Internal Medicine 11/19/15 Vira Nur MD [address] [place] [phone] [email or web address] Medical [email or web address] 04/16/23 Gadiel Tripp PA [address] [place] [phone] Physician French Binding Folder 04/16/23 Wilfred Maynard MD [address] [place] [phone] Referring Physician Medical Oncology 04/16/23 Leslie Coello RN [address] [place] [address] [email or web address] Primary Infusion Nurse 02/22/24 Scott Hooper MBBS [address] [place] [phone] [email or web address] Medical Oncology 03/01/24 documented as of this encounter Additional Source Comments The information contained in this document represents components of the legal health record. It is not the complete legal health record.[facility]
--- NOTE | 2025-03-27 10:35 | AM.OFFVISNUR ---
Intake Visit Reasons: GnRH Allergies Uoisnwm-JLS-CaS Reductase Inhibitor Adverse Reaction (Intermediate, Verified 12/25/24 11:41) Joint and muscle pain Office Meds Eligard (6 month) 45 mg (6 month) subcutaneous syringe Performing Provider: Chano Chen MD Performing [facility] Administered by: Chuck Lucio LPN on 03/27/25 10:35 Dose Route Admin Location Dispensed Lot Number Expiration Date [facility] [employer] S[employer] 45 mg subcut left arm 45 mg [id number] 04/30/26 71757-822-29 [employer]. Total Dispensed Waste 45 mg 0 % Assessment & Plan Assessment & Plan Orders: Orders AMB Leuprolide Injection - Practice Supplied Today C61 - Malignant neoplasm of prostate, C79.51 - Secondary malignant neoplasm of bone Coding
--- OUTSIDE RECORDS SUMMARY | 2025-03-27 11:39 | XMS_ITS ---
Author Name [facility] Organization Unknown Encounters Encounter Type Encounter Reason Primary Diagnosis Location Date Emergency Pleurodynia Pleurodynia [facility] 2022 Care Team Organization Name Specialty Phone Email Start Date End [facility] te [facility] 2022 [facility] 04/05/2023 08/0 02/2023
--- OUTSIDE RECORDS SUMMARY | 2025-03-27 11:39 | XMS_ITS | Patient Health Record ---
Author Organization Wilfred Maynard III, MD Address [address] [address] Care Team Providers Care Plastic Die Maker Apprentice Name Role Phone PREETI HDEZ Primary Care Provider Unavailab Wilfred Marroquin Unavailable [phone] Allergies Allergen (clinical drug ingredient) Drug/Non Drug Allergy documented on EMR Reaction Allergy Type Onset Date Status No Known Drug Allergy Unknown Drug Allergy Active Results Component Value Reference Range Notes Urine Culture Reviewed date:08/23/2024 08:18:58 AM Interpretation: Performing Lab:[facility], [address] [place] [phone] Notes/Report: O:PROMIR Proteus mirabilis Urine Culture Quant Urine Culture 10,000 to 50,000 cfu/mL Ampicillin <=2 Cefazolin <=4 Ceftriaxone <=0.25 Ciprofloxacin <=0.25 Gentamicin <=1 Nitrofurantoin 128 Trimethoprim/Sulfamethoxaz ole <=20 Complete Blood Count Auto Di ff Reviewed date:03/29/2024 01:07:05 PM Interpretation: Performing Lab:[facility], [address] [place] [phone] Notes/Report: White Blood Count 6.7 4.8-10.8 X10*3/uL [...] Panel Reviewed date:03/29/2024 01:05:31 PM Interpretation: Performing Lab:[facility], [address] [place] [phone] Notes/Report: Sodium 141 135-145 mmol/L Potassium 3.9 3.3-5.1 mmol/L Chloride 105 96-108 mmol/L Carbon Dioxide 28 22-29 mmol/L Anion Gap 12 12-20 Blood Urea Nitrogen 18 9-16 mg/dL Creatinine 0.72 0.5-1.4 mg/dL Estimated Glomerular Filt Rate > 60 NOTE: For -[place] individuals, multiply the result by 1.210. Chronic [...] Antigen Reviewed date:03/29/2024 01:07:05 PM Interpretation: Performing Lab:[facility], [address] [place] [phone] Notes/Report: Prostate Specific Antigen 0.47 <0.05-4.0 ng/mL PSA methodology: [place] Alinity i Chemiluminescent Microparticle Immunoassay (CMIA) Testosterone, Total Reviewed date:04/03/2024 02:15:07 PM Interpretation: Performing Lab:[facility], [address] [place] [phone] Notes/Report: Testosterone, Total 26 250-1100 ng/dL Men with clinically significant hypogonadal symptoms and testosterone values repeatedly in the range of the 200-300 ng/dL or less, may benefit from testosterone treatment after adequate risk and benefits counseling. For additional information, please refer to http://education.[employer]/faq/ TotalTestosteroneLCMS EVQWD985 (This link is being provided for informational/ educational purposes only.) This test was developed and its analytical performance characteristics have been determined by [employer] [place], [place]. It has not been cleared or approved by the U.S. Food and Drug Administration. This assay has been validated pursuant to the CLIA regulations and is used for clinical purposes. THIS TEST WAS PERFORMED AT: [facility]/[address] [phone] LAURA CASILLAS MD,PHD Urinalysis and Microscopic Reviewed date:08/23/2024 08:18:58 AM Interpretation: Performing Lab:[facility], [address] [place] [phone] Notes/Report: Color Urine Yellow Appearance Urine Clear PH 6.0 5.0-9.0 Glucose Urine UA Negative Negative mg/dL Urine Blood Negative Negative Specific [place] - Urine 1.015 1.005-1.025 Urine Protein Negative Neg-Trace mg/dL Urine Ketones Negative Negative mg/dL Nitrite Urine Negative Negative Leukocyte Esterase Urine Trace Negative RBC Urine 0-2 0-2 /HPF WBC Urine 11-20 0-5 /HPF Squamous Epithelial Cell Urine 0-2 0-2 /HPF Bacteria Urine None Seen None Seen Hyaline Casts Urine 0-2 0-2 /LPF Reason For Referral No Information Medications Medication SIG (Take, Route, Frequency, Duration) Notes Start Date End Date Status Omeprazole 10 MG 1 capsule 30 minutes before morning meal Orally Once a day Active Darolutamide 300 MG 2 tablets Orally Twi ce a day Active Lupron Depot (6-Month) 45 MG as directed Intramuscular 01/02/2025 Active Escitalopram Oxalate 10 MG TAKE 1 TABLET BY MOUTH DAILY Diagnosis Unavailable Oral for depression Active Vitamin D3 25 MCG (1000 UT) TAKE 1 TABLET BY MOUTH EVERY DAY Active amLODIPine Besylate 2.5 MG 1 tablet Orally Once a day Active oxyCODONE HCl 5 MG take 1 tablet by tequila th every 6 hours Oral Active Social History [...] Status W/U Status Risk Notes Problem Overweight (439559524) Overweight (E66.3) Active confirmed His body mass index is slightly over 25. He has lost weight recently. IRs and to maintain his weight at this level to a healthy nutritious diet. Problem 87921305 Hyperglycemia (R73.9) Active confirmed Most recent glucose is 116. This will be followed carefully. A hemoglobin A1c will be ordered. Problem 251065829 Prostate cancer (C61) Active confirmed He recently had CT scans of the chest and abdomen and this morning had an MRI. The results are at [facility] and not available to me but will be requested. He is currently being restaged due to his weight loss. Problem Anemia, unspecified (D64.9) Active confirmed His hemoglobin and hematocrit are now in the normal range and this problem has resolved. Problem Vitamin D deficiency (42131950) Vitamin D deficiency, unspecified (E55.9) Active confirmed He was continued on vitamin D. He is known to have osteopenia. Problem 073377839 Skin cancer, basal cell (C44.91) Active confirmed There is no sign of any new skin cancer. Problem 73763573 Incontinence (R32) Active confirmed He continues to have intermittent incontinence of urine. He has adapted to this and is unimpaired and daily living. Problem 191232955 Osteopenia (M85.80) Active confirmed He will continue on his current regimen. He will be followed for osteoporosis. He is at risk due to a low testosterone. I recommended 500 mg of calcium twice a day with vitamin D. Problem 687335740 Benign prostatic hypertrophy (N40.0) Active confirmed He rises from sleep once or twice a night to urinate. He is occasionally incontinent. We discussed lifestyle modifications way to reduce nocturia. Problem 35099113 Reactive depression (F32.9) Active confirmed He will [...] medical oncology and prostate cancer management. Problem 032520079 Weight loss, unintentional (R63.4) Active confirmed He has continued to lose a substantial weight. The cause is not apparent if it is not. The prostate cancer worsening. His treatment is on hold and he is being restaged. Vital Signs Heart Rate 66 /min 01/02/2025 Temperature 97.0 degrees Fahrenheit 01/02/2025 Blood pressure diastolic 70 mm Hg 01/02/2025 Height 74 in 01/02/2025 Blood pressure systolic 133 mm Hg 01/02/2025 Weight 175 lbs 01/02/2025 BMI 22.47 kg/m2 01/02/2025 Encounters Encounter Location Date Provider Diagnosis Wilfred Maynard III, MD [address] [place] [address] [address] [place], [place] [phone] 03/31/2024 Wilfred Maynard Overweight E66.3 ; Prostate cancer C61 ; Osteopenia M85.80 ; Benign prostatic hypertrophy N40.0 and Reactive depression F32.9 Wilfred Maynard III, MD [address] [place] [address] [place] [address] 06/02/2024 Wilfred Maynard Overweight E66.3 ; Prostate cancer C61 ; UTI symptoms R39.9 ; Incontinence R32 ; Osteopenia M85.80 ; Skin cancer, basal cell C44.91 and Benign prostatic hypertrophy N40.0 Wilfred Maynard III, MD [address] [place] [address] [place] [address] 09/04/2024 Wilfred Maynard Overweight E66.3 ; Prostate cancer C61 ; Weight loss, unintentional R63.4 ; Incontinence R32 and Anemia, unspecified D64.9 Wilfred Maynard III, MD [address] [place] [address] [place] [address] 01/02/2025 Wilfred Maynard Prostate cancer C61 ; Incontinence R32 ; Osteopenia M85.80 ; Benign prostatic hypertrophy N40.0 ; Reactive depression F32.9 and Weight loss, unintentional R63.4 Wilfred Maynard III, MD [address] [place] [address] [place] [phone] 09/04/2024 Wilfred Maynard III, MD [address] [place] [address] [place] [phone] 02/06/2025 Wilfred Maynard III, MD [address] [place] [address] [place] [phone] 02/21/2025 Wilfred Maynard Assessments Encounter Date Diagnosis (ICD Code) Assessment Notes Treat ment Notes Treatment Clinical Notes 03/31/2024 Overweight (ICD-10 [...] is being treated by medical oncology at [facility]. His review of symptoms and tolerating his [...] is being treated by medical oncology at [facility]. His review of symptoms and tolerating his treatment well. We have requested the records. 01/02/2025 Prostate cancer (ICD-10 - C61) He recently had CT scans of the chest and abdomen and this morning had an MRI. The results are at [facility] and not available to me but will be requested. He is currently being restaged due to his weight loss. 01/02/2025 Incontinence (ICD-10 - R32) He continues to have intermittent incontinence of urine. He has adapted to this and is unimpaired and daily living. 03/31/2024 Osteopenia (ICD-10 - M85.80) He will [...] tests were ordered. He remains slightly overweight. 01/02/2025 Osteopenia (ICD-10 - M85.80) He will [...] and is unimpaired and daily living. 01/02/2025 Benign prostatic hypertrophy (ICD-10 - N40.0) [...] normal range and this problem has resolved. 01/02/2025 Reactive depression (ICD-10 - F32.9) He [...] medical oncology and prostate cancer management. 06/02/2024 Skin cancer, basal cell (ICD-10 - C44.91) There is no sign of any new skin cancer. 01/02/2025 Weight loss, unintentional (ICD-10 - R63.4) He has continued to lose a substantial weight. The cause is not apparent if it is not. The prostate cancer worsening. His treatment is on hold and he is being restaged. 06/02/2024 Benign prostatic hypertrophy (ICD-10 - N40.0) He rises from sleep once or twice a night to urinate. He is occasionally incontinent. We discussed lifestyle modifications way to reduce nocturia. Plan Of Treatment Pending Test Test Name Order Date PROFILE, FASTING (COMPREHENSIVE METABOLI C) 03/04/2022 PROFILE, FASTING (COMPREHENSIVE METABOLI C) 06/21/2023 PROFILE, FASTING (COMPREHENSIVE METABOLI C) 12/03/2021 PROFILE, FASTING (COMPREHENSIVE METABOLI C) 05/05/2023 PROFILE, FASTING (COMPREHENSIVE METABOLI C) 10/09/2020 PROFILE, RANDOM (COMPREHENSIVE METABOLIC ) 02/22/2020 PROFILE, [...] TOTAL 12/31/2022 PSA, TOTAL 02/22/2020 PSA, TOTAL 08/25/2023 PSA, [...] CBC WITH AUTO DIFF 06/21/2023 Lipid Panel 12/03/2021 Lipid Panel 06/21/2023 Testosterone, Free/Total 01/15/2021 Next Appt Details Provider Name:Wilfred Maynard, 07/05/2025 09:30:00 AM, [address] [place] [address] DR, [place] [address], [place], [address], Insurance Providers Payer Name Payer Address Payer Phone Subscriber Number Group Number Insured Name Patient Relationship to Insured Coverage Start Date Coverage End Date MEDICARE NGS [address] [place] [address] [id number] Justin Briceno Self - patient is the insured MEDICA[place] [address] [place] [id number] Justin Briceno Self - patient is the insured Medical (General) History Medical History History ICD Code basal cell cancer, chest sebaceous cysts stage IV adenocarcinoma prostate [place] 7 (4+3 ) GERD depression hyperlipidemia osterarthritis left knee 2018 Surgical History Surgery Date(Month/Year) No history Prostate removal surgery 18 years ago radical prostatectomy 2008 biopsy of prostate 2005 Hospitalization History Reason Date(Month/Year) No history Shortness of breath 04/2020 Shortness of breath 01/2020
--- OUTSIDE RECORDS SUMMARY | 2025-03-27 11:39 | XMS_ITS | Clinical Summary ---
Author Organization [facility] Address [address] [place] [address] Care Team Providers Care Cmm Inspector Name Role Phone Unavailable Primary Care Provider [...] 69 04/05/2023 5:22 AM EDT Temperature 36.6 C (97.9 F) 04/05/2023 5:22 AM EDT Respiratory Rate 17 04/05/2023 5:22 AM EDT Oxygen Saturation 97% 04/05/2023 5:22 AM EDT Inhaled Oxygen Concentration - - Weight 79.4 kg (175 lb) 04/05/2023 5:22 AM EDT Height 190.5 cm (6' 3 ) 04/05/2023 5:22 AM EDT Body Mass Index 21.87 04/05/2023 5:22 AM EDT Plan of Treatment Not on file
--- OUTSIDE RECORDS SUMMARY | 2025-03-27 11:39 | XMS_ITS | Clinical Summary ---
Author Organization [facility] Address [address] [place] [phone] Care Team Providers Care Watch Guard Gate Name Role Phone Unavailable Primary Care Provider [...] Panel) 09/24/2023 Colorectal Cancer Screening: Colonoscopy 09/24/2023 Falls Risk Assessment 09/24/2023 Hepatitis C Screening 09/24/2023 Social Influencers of Health Screening 09/24/2023 COVID-19 Vaccine ( - 2023-2 5 season) 2024 Depression Screening 08/30/2024 Influenza Vaccine (#1) 2025 RSV Immunization Adult Patie nts (1 [...]
--- OUTSIDE RECORDS SUMMARY | 2025-03-27 11:39 | XMS_ITS | Patient Health Record ---
Author Organization [facility] Address [address] [place] [address] Care Team Providers Care Bag Repairer Name Role Phone Gadiel Tripp Primary Care Provider Unavailab Wilfred Hyde Unavailable [phone] Allergies No Known Allergies Reason For Referral [...] Problem Status W/U Status Risk Notes Problem [id number] Encounter for screening for malignant neoplasm of colon (Z12.11) Active confirmed Problem 555473601 History of adenomatous polyp of colon (Z86.010) Active confirmed Problem 79175114 Weight loss (R63.4) Active confirmed Problem 58692214 Anorexia (R63.0) Active confirmed Problem Erosive esophagitis (01418204) Erosive esophagitis (K22.10) Active confirmed Problem Gastroesophageal reflux disease (056051346) GERD (gastroesophag eal reflux disease) (K21.9) Active confirmed Problem 580037987771243 Pre-procedural examination (Z01.818) Active confirmed Problem 43025801 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 Plan Of Treatment Future Test Test Name Order Date UPPER GI ENDOSCOPY 07/27/2012 COLONOSCOPY 07/27/2012 COLONOSCOPY 01/20/2019 Insurance Providers Payer Name Payer Address Payer Phone Subscriber Number Group Number Insured Name Patient Relationship to Insured Coverage Start Date Coverage End Date MEDICARE OF [place] [address] [place] [address] [id number] MORGAN WEBER Self - patient is the insured MEDICAID OF [facility] [address] [place] [address] [id number] MORGAN WEBER Self - patient is the insured Medical (General) History Medical History History ICD Code Hx of tubular adenoma & hyperplastic hannah yps removed in 04/2007 GERD-EGD in 1998 with a HH-no Hamilton's Prostate cancer with mets to right ribs-Rx'd with Lupron; previously Rx'd with surgery and XRT Asthma Denies CA,DM,CVA,renal disease Colonoscopy in 08/2012 neg. for polyps [...]
== END 2025-03-27 10:45 | disposition home or self-care (01) ==
LOC: HO.HUSH 10:35
PROVIDERS: PCP Physician Assistant; Visit Provider Urology
DX: C61 Malignant neoplasm of prostate (principal); C79.51 Secondary malignant neoplasm of bone

== ENCOUNTER → 2025-03-27 10:35 | Outpatient (BNVA) | payer MEDICARE, MEDICAID, SELFPAY | PROVIDERS: PCP Physician Assistant; Visit Provider Urology | DX: Z51.11 Encounter for antineoplastic chemotherapy (principal); C61 Malignant neoplasm of prostate; C79.51 Secondary malignant neoplasm of bone | CPT/HCPCS: 96402; J9217 ==

== ENCOUNTER 2025-03-27 10:49 | Outpatient (REF) | payer MEDICARE, MEDICAID, SELFPAY ==
[2025-03-27 14:01] LABS: Prostate Specific Antigen 0.23 ng/mL (<0.05-4.0)
== END 2025-03-27 10:50 | disposition home or self-care (01) ==
LOC: HO.10HDL 10:49
PROVIDERS: Visit Provider Urology
DX: C61 Malignant neoplasm of prostate (principal); C79.51 Secondary malignant neoplasm of bone
CPT/HCPCS: 36415; 84153; 84403

== ENCOUNTER 2025-04-17 14:12 | Outpatient (AMB) | payer MEDICARE, MEDICAID, SELFPAY ==
--- NOTE | 2025-04-17 14:16 | A.OFFPC_ITS ---
Vital Signs 3 04/17/25 14:17 Height 6 ft 3 in Weight 160 lb 8 oz BMI 20.1 BP 130/60 Blood Pressure Location Rt brachial Position Sitting Pulse 91 Pulse Source Pulse Oximeter Temp 97.1 F Temp Source Temporal Artery Scan Pulse Oximetry (%) 97 Oxygen Delivery Method Room Air Intake Visit Reasons: swollen hand Intake Note: Patient is here to follow up on Fall on 04/15/25 and swelling of left wrist Shipping And Receiving Associate Required: No Coal Washer: Not Required per policy Accompanied by: Self / Same As Patient Allergies Mhnohwx-UUK-MnW Reductase Inhibitor Adverse Reaction (Intermediate, Verified 04/17/25 14:28) Joint and muscle pain Medication List - Last Reconciled 04/17/25 by Gadiel Tripp PA-C amlodipine 5 mg (2 x 2.5 mg) PO DAILY 30 days cholecalciferol (vitamin D3) 25 mcg PO DAILY dexamethasone mg PO escitalopram oxalate 20 mg PO DAILY 30 days omeprazole 40 mg PO DAILY oxycodone 10 mg PO Q4H PRN 28 days Tobacco use date assessed: 04/17/25 Fall risk assessment: 1 Fall in past year Last assessed Fall Risk: 04/17/25 Dental Screening Dental Screen Date: 10/26/24 HPI swollen hand 2 HPI0 Details The patient is a 70-year-old male presenting with a fall resulting in a head injury. The fall occurred on Wednesday morning when the patient tripped and fell, hitting the right side of his head on the sidewalk. He did not seek immediate medical attention but was convinced by his daughter to visit the clinic. Since the fall, the patient has experienced nausea, dizziness, and a sensation of feeling cold. He reports a swollen left wrist, which is painful, and has been advised to get an x-ray. The patient has a history of prostate cancer and has undergone radiation therapy. He reports significant weight loss, currently weighing 160 pounds. He was recently hospitalized for 17 days for treatment related to his cancer. [facility] Medical History Pure hypercholesterolemia Benign essential hypertension BRBPR (bright red blood per rectum) Pathologic rib fracture Acute upper gastrointestinal bleeding Annual physical exam Cough Right shoulder pain Prostate cancer Borderline high cholesterol Other forms of dyspnea Achilles tendon pain Hypogonadism in male HTN (hypertension) MDD (major depressive disorder), recurrent episode Anxiety Asthma Prostate cancer metastatic to bone Surgical History H/O endoscopy H/O prostatectomy Family History Father Pneumonia Substance abuse Mother CAD (coronary artery disease) CHF (congestive heart failure) Brother Stomach cancer Substance abuse Sister Breast cancer Substance abuse Social History Household Members: Friend(s) Housing: House Do you presently have visiting nurse or other home services: No Alcohol intake: never Patient Tobacco Use Status: Never used Tobacco Years Smoked: 40 yrs e-Cigarette/Vaping Use: Never Used Second Hand Smoke Exposure: No Substance Use Type: Marijuana service: No Current occupational status: unemployed Current occupation: [employer] Cognitive needs: No Hearing needs: No Vision needs: Yes (Pt went to an eye doctor about 4 years ago. ) Questionnaire Thrive Questionnaire Date Thrive assessed: 12/25/24 I am a: Patient What is your living situation today?: I have a steady place to live Within the past 12 months, did the food you bought not last and you didn't have the money to get more?: Never true Within the past 12 months, did you worry whether your food would run out before you got money to buy more?: Never true Do you have trouble paying for medicines?: No Do you have trouble getting transportation to medical appointments?: No Do you have trouble paying your heating and electricity bill?: No Do you have trouble taking care of your child, family member or friend?: No Do you have trouble with day-to-day activities such as bathing, preparing meals, shopping, managing finances, etc.?: Yes Are you currently unemployed and looking for a job?: No Are you interested in more education?: No Please select the resources that you would like help with: None Currently or been in a relationship where the following occur: No concerns reported THRIVE Score: 0 GABRIELE-7 AMB Questionnaire GABRIELE-7 Date GABRIELE - 7 assessed: 12/25/24 Source: Developed by Drs. Wilfred Obando, Darshana Vaz, Chip Maya and colleagues, with an educational damion from [employer]. Review of Systems Const Denies headache(s) Eyes Denies loss of vision ENT Denies vertigo, Denies dizziness, Denies headache(s) and Denies sore throat Card Denies chest pain, Denies leg edema and Denies lightheadedness Resp Denies cough, Denies hemoptysis and Denies wheezing GI Denies abdominal pain, Denies melena, Denies constipation, Denies diarrhea and Denies vomiting Denies dysuria, Denies urinary frequency and Denies urinary urgency Musc Denies arthralgias, Denies joint swelling, Denies numbness and Denies tingling Neuro Denies Abnormal speech present, Denies behavioral changes, Denies vertigo, Denies dizziness, Denies headache(s), Denies loss of vision, Denies memory loss, Denies numbness and Denies tingling Psych Denies anxiety, Denies behavioral changes, Denies depression, Denies memory loss and Denies panic attacks Yasir/Lymph Denies easy bleeding and Denies easy bruising Aller/Immun Denies wheezing Physical exam (Primary Care) Vital Signs: Last Vital Signs Temp 97.1 F 04/17/25 14:17 Pulse 91 04/17/25 14:17 BP 130/60 04/17/25 14:17 Pulse Ox 97 04/17/25 14:17 Oxygen Delivery Method Room Air 04/17/25 14:17 BMI result Body Mass Index 20.1 Tobacco/Smoking Status: Tobacco use Status Tobacco use date assessed 04/17/25 04/17/25 14:22 Patient Tobacco Use Status Never used Tobacco 04/17/25 14:22 e-Cigarette/Vaping Use Never Used 04/17/25 14:22 Thrive Assessment: Date of Thrive Assessment Date Thrive assessed 12/25/24 04/17/25 14:22 Currently or been in a relationship where the following occur: No concerns reported Const Other: PALE AND THIN APPEARING General: no acute distress, alert and awake Nutritional Appearance: well nourished Orientation/consciousness: oriented to person, oriented to place and oriented to time [facility] Head images: 2 1. ABRASION OVER THE LEFT FOREHEAD Ears: TM's normal bilaterally General nose exam: Normal nasal mucous membranes and turbinates present Eyes Conjunctivae: conjunctivae normal Sclerae: sclerae normal Pupils: Equal, round and reactive pupils present Neck Neck: Yes no lymphadenopathy and Yes no JVD Thyroid: Thyroid normal Carotids: no bruits Resp Effort & Inspection: normal respiratory effort and not tachypneic Auscultation: no crackles, no rales, no rhonchi and no wheezes Cardio Rate: regular rate Rhythm: regular rhythm Heart sounds: no murmurs and normal S1 and S2 GI Palpation (GI): Soft to palpation, nontender, no hepatomegaly and no splenomegaly Auscultation: normal bowel sounds Skin General skin exam: no rashes or lesions noted and dry skin Neuro General: oriented to person, oriented to place and oriented to time Cranial nerves: Yes Equal, round and reactive pupils present Speech: No Abnormal speech present Gait exam (Neuro): Normal gait present Motor exam (neuro): no tremor noted Extrem Other: SWOLLEN LEFT WRIST AND HAND. Right upper extremity: full ROM Left upper extremity: full ROM Shoulder/upper arm images: 2 1. ABRASION OVER THE LEFT SHOULDER Right lower extremity: full ROM; no edema Left lower extremity: full ROM; no edema Psych Mental Status: mental status grossly normal Speech and movement: Normal speech and movement present Affect: normal affect Attitude: cooperative Thought process: Normal thought process present Coding Level of Care Code Est Pt Level 4 (00634) Diagnoses Fall, subsequent encounter W19.XXXD Encounter type: subsequent encounter Injury of head, initial encounter S09.90XA Encounter type: initial encounter Injury of left wrist, initial encounter S69.92XA Encounter type: initial encounter Swelling of left hand M79.89 Assessment & Plan Assessment & Plan (1) Fall: Code(s): W19.XXXA - Unspecified fall, initial encounter Category: Medical Qualifiers: Encounter type: subsequent encounter Qualified Code(s): W19.XXXD - Unspecified fall, subsequent encounter Plan: The patient experienced a fall resulting in a head injury, with symptoms of nausea and dizziness suggesting possible intracranial pressure. A CT scan of the head is recommended to rule out intracranial bleeding, although it may require an ER visit for expedited imaging, unfortunately patient declines as he is not interested in waiting in the ER and was feeling a bit tired and wanted to rest. (2) Head injury: Code(s): S09.90XA - Unspecified injury of head, initial encounter Category: Medical Qualifiers: Encounter type: initial encounter Qualified Code(s): S09.90XA - Unspecified injury of head, initial encounter Plan: As above (3) Left wrist injury: Code(s): S69.92XA - Unspecified injury of left wrist, hand and finger(s), initial encounter Category: Medical Qualifiers: Encounter type: initial encounter Qualified Code(s): S69.92XA - Unspecified injury of left wrist, hand and finger(s), initial encounter Plan: As above (4) Swelling of left hand: Code(s): M79.89 - Other specified soft tissue disorders Category: Medical Plan: As above Orders: Orders 2 Lipid Panel 04/17/25 E78.00 - Pure hypercholesterolemia, unspecified Comprehensive Holder. Panel Fast 04/17/25 I10 - Essential (primary) hypertension XR wrist LT min 3V 04/17/25 S69.92XA - Unspecified injury of left wrist, hand and finger(s), initial encounter XR skull min 4V 04/17/25 S09.90XA - Unspecified injury of head, initial encounter Complete Blood Count no Diff 04/17/25 I10 - Essential (primary) hypertension XR hand LT 2V 04/17/25 M79.89 - Other specified soft tissue disorders
[2025-04-17 14:17] VITALS: BP 130/60; PULSE 91; TEMP 36.2; O2SAT 97; BMI 20.1
--- OUTSIDE RECORDS SUMMARY | 2025-04-17 15:35 | XMS_ITS | Patient Health Record ---
Author Organization Wilfred Maynard III, MD Address [address] [facility] [place] [address] Care Team Providers Care Speech Language Specialist Name Role Phone PREETI HDEZ Primary Care Provider UnavailWilfred Araujo Unavailable [phone] Allergies Allergen (clinical drug ingredient) Drug/Non Drug Allergy documented on EMR Reaction Allergy Type Onset Date Status No Known Drug Allergy Unknown Drug Allergy Active Results Component Value Reference Range Notes Urine Culture Reviewed date:08/23/2024 08:18:58 AM Interpretation: Performing Lab:[facility], [address] [place] [phone] Notes/Report: O:PROMIR Proteus mirabilis Urine Culture Quant Urine Culture 10,000 to 50,000 cfu/mL Ampicillin <=2 Cefazolin <=4 Ceftriaxone <=0.25 Ciprofloxacin <=0.25 Gentamicin <=1 Nitrofurantoin 128 Trimethoprim/Sulfamethoxazole <=20 Urinalysis and Microscopic Reviewed date:08/23/2024 08:18:58 AM Interpretation: Performing Lab:[facility], [address] [place] [phone] Notes/Report: Color Urine Yellow Appearance Urine Clear PH 6.0 5.0-9.0 Glucose Urine UA Negative Negative mg/dL Urine Blood Negative Negative Specific Tolar - Urine 1.015 1.005-1.025 Urine Protein Negative [...] Status W/U Status Risk Notes Problem Overweight (730122515) Overweight (E66.3) Active confirmed His body mass index is slightly over 25. He has lost weight recently. IRs and to maintain his weight at this level to a healthy nutritious diet. Problem 35987637 Hyperglycemia (R73.9) Active confirmed Most recent glucose is 116. This will be followed carefully. A hemoglobin A1c will be ordered. Problem 545999878 Prostate cancer (C61) Active confirmed He recently had CT scans of the chest and abdomen and this morning had an MRI. The results are at [facility] and not available to me but will be requested. He is currently being restaged due to his weight loss. Problem Anemia (443993784) Anemia, unspecified (D64.9) Active confirmed His hemoglobin and hematocrit are now in the normal range and this problem has resolved. Problem Vitamin D deficiency (68818251) Vitamin D deficiency, unspecified (E55.9) Active confirmed He was continued on vitamin D. He is known to have osteopenia. Problem 719999680 Skin cancer, basal cell (C44.91) Active confirmed There is no sign of any new skin cancer. Problem 33149419 Incontinence (R32) Active confirmed He continues to have intermittent incontinence of urine. He has adapted to this and is unimpaired and daily living. Problem 871726013 Osteopenia (M85.80) Active confirmed He will continue on his current regimen. He will be followed for osteoporosis. He is at risk due to a low testosterone. I recommended 500 mg of calcium twice a day with vitamin D. Problem 782818215 Benign prostatic hypertrophy (N40.0) Active confirmed He rises from sleep once or twice a night to urinate. He is occasionally incontinent. We discussed lifestyle modifications way to reduce nocturia. Problem 35946692 Reactive depression (F32.9) Active confirmed He will [...] medical oncology and prostate cancer management. Problem 929221203 Weight loss, unintentional (R63.4) Active confirmed He [...] Provider Diagnosis Wilfred Maynard III, MD [address] [place] [address] [place] [phone] 06/02/2024 Wilfred Maynard Overweight E66.3 ; Prostate cancer C61 ; UTI symptoms R39.9 ; Incontinence R32 ; Osteopenia M85.80 ; Skin cancer, basal cell C44.91 and Benign prostatic hypertrophy N40.0 Wilfred Maynard III, MD [address] [place] [address] [place] [phone] 09/04/2024 Wilfred Maynard Overweight E66.3 ; Prostate cancer C61 ; Weight loss, unintentional R63.4 ; Incontinence R32 and Anemia, unspecified D64.9 Wilfred Maynard III, MD [address] [place] [address] [place] [id number] 01/02/2025 Wilfred Maynard Prostate cancer C61 ; Incontinence R32 ; Osteopenia M85.80 ; Benign prostatic hypertrophy N40.0 ; Reactive depression F32.9 and Weight loss, unintentional R63.4 Wilfred Maynard III, MD [address] [place] [address] [place] [phone] 09/04/2024 Wilfred Maynard III, MD [address] [place] [address] [place] [phone] 02/06/2025 Wilfred Maynard III, MD [address] [place] [address] [place] [phone] 02/21/2025 Wilfred Maynard Assessments Encounter Date Diagnosis (ICD Code) Assessment Notes Treat ment Notes Treatment Clinical Notes 06/02/2024 Overweight (ICD-10 [...] is being treated by medical oncology at [facility]. His review of symptoms and [...] is being treated by medical oncology at [facility]. His review of symptoms and tolerating his treatment well. We have requested the records. 01/02/2025 Prostate cancer (ICD-10 - C61) He recently had CT scans of the chest and abdomen and this morning had an MRI. The results are at [facility] and not available to me but will be requested. He is currently being restaged due to his weight loss. 01/02/2025 Incontinence (ICD-10 - R32) He continues to have intermittent incontinence of urine. He has adapted to this and is unimpaired and daily living. 06/02/2024 UTI symptoms (ICD-10 - R39.9) He [...] twice a day with vitamin D. 06/02/2024 Incontinence (ICD-10 - R32) He continues [...] lifestyle modifications way to reduce nocturia. 06/02/2024 Osteopenia (ICD-10 - M85.80) He will [...] Details Provider Name:Wilfred Maynard, 07/05/2025 09:30:00 AM, [address] [place] [address] [address], [place] [address], [place], [phone], Insurance Providers Payer Name Payer Address Payer Phone Subscriber Number Group Number Insured Name Patient Relationship to Insured Coverage Start Date Coverage End Date MEDICARE NGS [address] [place] [address] [id number] Justin Briceno Self - patient is the insured [place] [address] [id number] Justin Briceno Self - patient is the insured Medical (General) History Medical History History ICD Code basal cell cancer, chest sebaceous cysts stage IV adenocarcinoma prostate [place] 7 (4+3 ) GERD depression hyperlipidemia osterarthritis left knee 2018 Surgical History Surgery Date(Month/Year) No history Prostate removal surgery 18 years ago radical prostatectomy 2008 biopsy of prostate 2005 Hospitalization History Reason Date(Month/Year) No history Shortness of breath 04/2020 Shortness of breath 01/2020
--- OUTSIDE RECORDS SUMMARY | 2025-04-17 15:35 | XMS_ITS | Clinical Summary ---
Author Organization [facility] Address [address] [place] [address] Care Team Providers Care Bobbin Coil Winder Name Role Phone Unavailable Primary Care Provider [...]
--- OUTSIDE RECORDS SUMMARY | 2025-04-17 15:35 | XMS_ITS | Patient Health Record ---
Author Organization [facility] Address [address] [place] [address] Care Team Providers Care Print Developer Automatic Name Role Phone Gadiel Tripp Primary Care Provider Unavailab Wilfred Hyde Unavailable [phone] Allergies No Known Allergies Reason For Referral [...] Problem Status W/U Status Risk Notes Problem 911039614 Encounter for screening for malignant neoplasm of colon (Z12.11) Active confirmed Problem 834842647 History of adenomatous polyp of colon (Z86.010) Active confirmed Problem 50908379 Weight loss (R63.4) Active confirmed Problem 23273813 Anorexia (R63.0) Active confirmed Problem Erosive esophagitis (50063149) Erosive esophagitis (K22.10) Active confirmed Problem Gastroesophageal reflux disease (401530758) GERD (gastroesophag eal reflux disease) (K21.9) Active confirmed Problem 253169980458150 Pre-procedural examination (Z01.818) Active confirmed Problem 92020538 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 Plan Of Treatment Future Test Test Name Order Date UPPER GI ENDOSCOPY 07/27/2012 COLONOSCOPY 07/27/2012 COLONOSCOPY 01/20/2019 Insurance Providers Payer Name Payer Address Payer Phone Subscriber Number Group Number Insured Name Patient Relationship to Insured Coverage Start Date Coverage End Date MEDICARE OF [place] [address] [place] [address] [id number] MORGAN WEBER Self - patient is the insured MEDICAID OF [facility] [address] [place] [phone] [id number] MORGAN WEBER Self - patient is the insured Medical (General) History Medical History History ICD Code Hx of tubular adenoma & hyperplastic hannah yps removed in 04/2007 GERD-EGD in 1998 with a HH-no [facility] Prostate cancer with mets to right ribs-Rx'd with Lupron; previously Rx'd with surgery and XRT Asthma Denies ND,DM,CVA,renal disease Colonoscopy in 08/2012 neg. for polyps [...]
--- OUTSIDE RECORDS SUMMARY | 2025-04-17 15:35 | XMS_ITS | Encounter Summary ---
Author Organization [facility] Address [address] [place] [address] [address] [place] [address] Phone Care Team Providers Care Division Controller Name Role Phone Chirag River MD Primary Care Provider [phone] Wilfred Maynard MD Unavailable [phone] Vira Nur MD Unavailable Gadiel Tripp Unavailable [phone] Wilfred Maynard MD Unavailable [phone] Leslie Coello RN Unavailable [email or web address] Scott Hooper Unavailable [phone] Gadiel Tripp Primary Care Provider + Encounter Details Date Type Department Care Team (Late st Contact Info) Description 04/22/2023 Procedure Pass [facility], Ct Scan - [address] [id number] Social History Tobacco Use Types Packs/Day Years Used Date Smoking Tobacco: Never Smokeless Tobacco: Never Alcohol Use Standard Drinks/Week Comments Not Currently 0 (1 standard drink = 0.6 oz pur e alcohol) Education Answer Date Recorded Are you interested in more education? Not on rohan e 12/24/2022 Are you concerned about learning? Not on file 12/24/2022 No 12/24/2022 No 12/24/2022 Digital Access Answer Date Recorded No 01/25/2023 No 01/25/2023 Reliable internet access at home? Not on file 01/25/2023 Device with a working camera? Not on file Intimate Partner Violence Answer Date R ecorded Are you denied basic needs s uch as food, clothing, or medical care? No 03/22/2023 In the past 12 months have y ou been in a relationship with a person who hurts, threatens, or tries to control you? No 03/22/2023 Are you denied basic needs s uch as food, clothing, or medical care? No 03/22/2023 In the past 12 months have y ou been in a relationship with a person who hurts, threatens, or tries to control you? No 03/22/2023 Sex and Gender Information Value Date Recorded Sex Assigned at Male 04/16/2023 5:28 PM EDT Legal Sex Male 7:12 PM EST Gender Identity Male 04/16/2023 5:28 PM EDT Sexual Orientation Straight 04/16/2023 5: 28 PM EDT documented as of this encounter Plan of Treatment Upcoming Encounters Date Type Department Care Team (Late st Contact Info) Description 04/18/2025 1:30 AM EDT Home Care Visit [facility] [address] [place] [address] Unscheduled, [facility] [address] [place] [address] 04/18/2025 10:00 AM EDT Office Visit [facility] at [address] [address] Marilou Reyes MBBS [address] [place] [address] 04/25/2025 1:00 AM EDT Home Care Visit [facility] [address] [place] [phone] Ela Bran RN [address] [place] [address] [email or web address] 05/02/2025 Home [facility] Visit [facility] [address] [place] [address] Ela Bran RN [address] [place] [address] [email or web address] 05/07/2025 Appointment [facility] [address] [place] [address] Ela Bran RN [address] [place] [address] [email or web address] documented as of this encounter Visit Diagnoses Not on filedocumented in this encounter Care Teams Division Controller Relationship Specialty Start Date End Date Chirag River MD [address] [place] [address] PCP - General Internal Medicine 06/21/15 12/18/24 Gadiel Tripp PA [address] [place] [address] PCP - General Physician Denitrator Operator 12/19/24 Wilfred Maynard MD [address] [place] [address] Referring Physician Internal Medicine 11/19/15 Vira Nur MD [address] [place] [id number] [email or web address] Medical Oncology 04/16/23 Gadiel Tripp PA [address] [place] [address] Physician Denitrator Operator 04/16/23 Wilfred Maynard MD [address] [place] [address] Referring Physician Medical Oncology 04/16/23 Leslie Coello RN [address] [place] [phone] [email or web address] Primary Infusion Nurse 02/22/24 Scott Hooper MBBS [address] [place] [phone] [email or web address] Medical Oncology 03/01/24 documented as of this encounter Additional Source Comments The information contained in this document represents components of the legal health record. It is not the complete legal health record.[facility]
--- OUTSIDE RECORDS SUMMARY | 2025-04-17 15:35 | XMS_ITS | Clinical Summary ---
Author Organization [facility] Address [address] [place] [phone] Care Team Providers Care Segment Assembler Name Role Phone Unavailable Primary Care Provider [...]
== END 2025-04-17 14:46 | disposition home or self-care (01) ==
LOC: HO.HMCH 14:13
PROVIDERS: PCP Physician Assistant; Visit Provider Physician Assistant
DX: S09.90XA Unspecified injury of head, initial encounter (principal); S69.92XA Unspecified injury of left wrist, hand and finger(s), initial encounter; W19.XXXD Unspecified fall, subsequent encounter; M79.89 Other specified soft tissue disorders

== ENCOUNTER → 2025-04-17 14:12 | Outpatient (BNVA) | payer MEDICARE, MEDICAID, SELFPAY | PROVIDERS: PCP Physician Assistant; Visit Provider Physician Assistant | DX: R60.0 Localized edema (principal); S09.90XD Unspecified injury of head, subsequent encounter; S69.92XD Unspecified injury of left wrist, hand and finger(s), subsequent encounter; W19.XXXD Unspecified fall, subsequent encounter | CPT/HCPCS: 99212 ==

== ENCOUNTER 2025-05-08 11:21 | Outpatient (AMB) | payer MEDICARE, MEDICAID, SELFPAY ==
--- OUTSIDE RECORDS SUMMARY | 2024-09-04 06:30 | XMS_ITS ---
Author Organization Wilfred Maynard III, MD Address [address] [facility] [place] [address] Care Team Providers Care Internal Combustion Engine Inspector Name Role Phone PREETI HDEZ Primary Care Provider Unavailab Wilfred Marroquin Unavailable [phone] Allergies Allergen (clinical drug ingredient) Drug/Non Drug [...] Problem Status W/U Status Risk Notes Problem 596923895 Weight loss, unintentional (R63.4) Active confirmed He has continued to lose a substantial weight. The cause is not apparent if it is not. The prostate cancer worsening. His treatment is on hold and he is being restaged. Problem Anemia ([id number]) Anemia, unspecified (D64.9) Active confirmed His hemoglobin [...] Date Provider Diagnosis Wilfred Maynard III, MD [address] [place] [address] [place] [address] 09/04/2024 Wilfred Maynrad Overweight E66.3 ; Prostate cancer C61 ; [...] is being treated by medical oncology at [facility]. His review of symptoms and tolerating [...] oncologist and to assess the patient's condition. Provider Name:Wilfred Maynard, 07/05/2025 09:30:00 AM, [address] [place] [address], [address], [address], Progress Notes * Justin BRICENO ShielaDOB:[birth year] (69 yo M)Acc No.[id number]:09/04/2024 Progress Notes Patient: Justin TRIPP Provider: Rylie Maynard MD :1955 A ge:69 Y S ex:Male Date:09/04/2024 Address:[address] [place], [place] [id number] Pcp:PREETI HDEZ Subjective: * Chief Complaints: * S tage IV prostate cancerHistory of skin cancerDepressionIncontinenceBenign prostatic hypertrophy * HPI: C OVID-19 Screening: Questions H ave you had any new onset fever, chills, cough, congestion, sore throat, shortness of breath, muscle aches? N o * : The patient, eLroy, a 69-year-old male, presented with complaints of [...] Findings: Tobacco Non-User A ggressive non-smoker H tal is single and working. He was born in [place], [place]. He does not drink or smoke. 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 He enjoys [...] is being treated by medical oncology at [facility]. His review of symptoms and tolerating [...] true * Provider: Rylie Maynard MD Date: 09/04/2024 Generated for Luís raygoza/Dennis/Diego on: 05/08/2025 11:34 AM EDT History and Physical Notes * HPI (History [...]
--- OUTSIDE RECORDS SUMMARY | 2024-09-04 07:37 | XMS_ITS ---
Author Organization Wilfred Maynard III, MD Address [address] [facility] [place] [address] Care Team Providers Care Center Machine Operator Name Role Phone PREETI HDEZ Primary Care Provider Unavailab Wilfred Marroquin Unavailable [phone] REASON FOR VISIT Rx Message Social History Sex Assigned At : Social History Observation Description Sex Assigned At Male Encounters Encounter Location Date Provider Diagnosis Wilfred Maynard III, MD [address] [place] [address] [place] [address] 09/04/2024 Wilfred Maynard Plan Of Treatment Next Appt Details Provider Name:Wilfred Maynard, 07/05/2025 09:30:00 AM, [address] [place] [address] [place], [address], Progress Notes * Justin BRICENODOB:[birth year] (69 yo M)Acc No.[id number]:09/04/2024 Patient: Justin TRIPP :1955 A ge:69 Y S ex:Male Address:[address] [place], [place] * true * Date: Generated for Luís raygoza/Dennis/eTransmitting on: 0 05/08/2025 11:33 AM EDT
--- OUTSIDE RECORDS SUMMARY | 2025-01-02 05:15 | XMS_ITS ---
Author Organization Wilfred Maynard III, MD Address [address] [place] [address] Care Team Providers Care Geothermal Sheet Metal Worker Name Role Phone PREETI HDEZ Primary Care Provider Unavailab Wilfred Marroquin Unavailable [phone] Allergies Allergen (clinical drug ingredient) Drug/Non Drug [...] Date Provider Diagnosis Wilfred Maynard III, MD [address] [place] [address] [address], [place] [phone] 01/02/2025 Wilfred Maynard Prostate cancer C61 ; [...] had an MRI. The results are at [facility] and not available to me but [...] Details Follow Up: 6 Months, Reason: ov Provider Name:Wilfred Maynard, 07/05/2025 09:30:00 AM, [address] [place] [address], [id number], Progress Notes * Justin BRICENODOB:[birth year] (69 yo M)Acc No.[id number]:01/02/2025 Progress Notes Patient: Justin TRIPP Provider: Rylie Maynard MD :1955 A ge:69 Y S ex:Male Date:01/02/2025 Address:[address] [place] [id number] Pcp:RPEETI HDEZ Subjective: * Chief Complaints: * S tage IV prostate cancerWeight lossUrinary incontinenceBenign prostatic hypertrophy, * HPI: C OVID-19 Screening: Rj is primary care physician is now ANETA Felipe at [facility]. He is under the care of medical oncology and radiation therapy at [facility] in [place], [place]. He has lost substantial weight recently, [...] appointment in the near future with the [facility] in [place]. Questions H ave you had any new [...] single and working. He was born in [place], [place]. He does not drink or smoke. 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 He [...] had an MRI. The results are at [facility] and not available to me but [...] 0 01/02/2025 Generated for Luís raygoza/Dennis/Supriyaitting on: 0 05/08/2025 11:34 AM EDT History and Physical [...]
--- OUTSIDE RECORDS SUMMARY | 2025-02-06 10:11 | XMS_ITS ---
Author Organization Wilfred Maynard III, MD Address [address] [place] [address] [address] [facility] [place] [address] Care Team Providers Care Bill Of Lading Clerk Name Role Phone PREETI HDEZ Primary Care Provider Unavailab Wilfred Marroquin Unavailable [phone] REASON FOR VISIT FYI Social History Sex Assigned At : Social History Observation Description Sex Assigned At Male Encounters Encounter Location Date Provider Diagnosis Wilfred Maynard III, MD [address] [place] [address] [place] [address] 02/06/2025 Wilfred Maynard Plan Of Treatment Next Appt Details Provider Name:Wilfred Maynard, 07/05/2025 09:30:00 AM, [address] [place] [address] [place], [address], Progress Notes * Justin BRICENODOB:[birth year] (69 yo M)Acc No.[id number]:02/06/2025 Patient: Justin TRIPP :1955 A ge:69 Y S ex:Male Address:[address] [place], [place] * true * Date: Generated for Luís raygoza/Dennis/eTransmitting on: 0 05/08/2025 11:33 AM EDT
--- OUTSIDE RECORDS SUMMARY | 2025-02-21 09:23 | XMS_ITS ---
Author Organization Wilfred Maynard III, MD Address [address] [facility] [address] [facility] [place] [address] Care Team Providers Care Advertising Layout Worker Name Role Phone PREETI HDEZ Primary Care Provider Unavailab Wilfred Marroquin Unavailable [phone] REASON FOR VISIT FYI Social History Sex Assigned At : Social History Observation Description Sex Assigned At Male Encounters Encounter Location Date Provider Diagnosis Wilfred Maynard III, MD [address] [place] [address] [place] [address] 02/21/2025 Wilfred Maynard Plan Of Treatment Next Appt Details Provider Name:Wilfred Maynard, 07/05/2025 09:30:00 AM, [address] [place] [address] [place], [address], Progress Notes * Justin BRICENODOB:[birth year] (69 yo M)Acc No.[id number]:02/21/2025 Patient: Justin TRIPP :1955 A ge:69 Y S ex:Male Address:[address] [place], [place] * true * Date: Generated for Luís raygoza/Dennis/eTransmitting on: 0 05/08/2025 11:34 AM EDT
--- NOTE | 2025-05-08 11:26 | MHC.OFFVIS ---
Intake Visit Reasons: follow up/labs Intake Note: Patient is present for: follow up Urology Medication:none Blood Thinner:NONE labs done 03/27/25: PSA 0.23, T-testo 20L Environment Artist Required: No Accompanied by: Self / Same As Patient Allergies Hnglytr-BQW-[id number] Reductase Inhibitor Adverse Reaction (Intermediate, Verified 05/08/25 11:27) Joint and muscle pain HPI Comments Details: Mr Briceno is a very pleasant male. He is a patient of Dr. Tripp. Copies of notes to his oncologist Dr Maynard. He is seen for the following urologic condition - prostate cancer - metastatic hormone responsive - hypogonadism Oncology - [facility] Dr Hooper Three-month follow-up 05/24 - labs from 03/23 0.23 T 20 Doublet therapy Nubeqa plus GnRH 03/27/25 GnRH administration 09/23 here for GNRH administration PSA 0.2 - testosterone not done Six-month follow-up GnRH 06/22 On GnRH and Gisell PSA 0.5 - imaging through oncology at [facility] Tolterodine for bladder stability Continue Taxotere - needed some dexamethasone 03/22 GnRH long acting administered PSA 0.47 T 26 02/20 Rapid progression of prior metastatic site on vertebral body - 01/20 1.1 Extensive enhancing osseous metastatic disease involving the T7, T8, and to a lesser extent the T6 spinal elements as well as the right seventh eighth ribs and right seventh and eighth costovertebral junction Given rapid acting GnRH in [place] with Dr. Nur Start Nubeqa/darolutamide Assess for docetaxel 10/23 0.55, T 547 The site of biopsy proved metastatic prostate adenocarcinoma involving the posteromedial aspect of the right seventh rib shows mild tracer avidity with SUV max of 2.8 (PSMA score of 1). Note is also made of mild tracer avidity associated with underlying sclerosis involving the transverse processes of T6 vertebral body with SUV max of 1.9 (PSMA score of 0), highly suspicious for second site of metastatic disease. There are however no other osseous tracer avid disease identified to suspect additional sites of metastasis 04/21 right posterior 8th rib metastatic lesion - external beam radiation with Fuad Forbes - review with Dr. Nur [facility] - her conclusion was indolent prostate cancer with solitary bony met in setting of low PSA - recommendation was to repeat PSMA imaging every 4 months since following with PSA unreliable - would not initiate hormone therapy at this point given poor prior response Labs 03/20 P 0.21, T 448, 09/21 T 476 P 0.3, 12/20 T 481 P 0.5, 06/21 0.56 T 547n Prostate cancer: 2006 initial therapy prostatectomy grade 3+4, rising PSA 2007 with external beam radiation and subsequent intermittent hormones Prostate cancer was diagnosed December 2005 Dr Costa. Diagnosis was reached by needle biopsy. The Darvin grade is 3+4 = 7, at surgery - tertiary 5. Extraprostatic extension at base of gland. Seminal vesicles were involved. Left micrometastatic focus of prostatic adenocarcinoma in 2/5 lymph nodes. - ? of rib involvement 2011. TNM Classification of Malignant Tumours (TNM) T2a. The [place] (NCCN) risk category is Intermediate Risk (PSA 10-20, Gl 7, T2). Initial therapy included Primary treatment 2005 , Prostatectomy (RRP/Robotic) , Additional treatment 2007 , External Beam Radiation , Additional treatment 2009 , Hormonal Blockade - Continuous, with, GnRH agonists (Lupron) and , Antiandrogen (nilandron) , Additional treatment 2015 , Hormonal Blockade -intermittent Last 01/12 , Additional treatment Prolia 04/16. Recent labs included a PSA (prostate-specific antigen) October 2015 undetectable Jun 2016 , a PSA (prostate-specific antigen), < 0.1, a testosterone, < 20 ng/dL October 2016 , a PSA (prostate-specific antigen), , < 0.1, T Mar , a PSA (prostate-specific antigen), < 0.1 10/17 , a PSA (prostate-specific antigen), < 0.1, T 167, 04/16 , a PSA (prostate-specific antigen), < 0.1, 05/17 , a PSA (prostate-specific antigen), < 0.1 05/18 PSA < 0.1, T 465 12/17 , PSA 0.05, Hct 50.3, T not done, 04/18 PSA 0.12, T 1000 - 10/20 PSA 0.12 T 2231, 06/19 0.15 458, 11/18 0.19 479 Recent imaging included a bone scan reported as negative , a DEXA scan 2013 osteopenia , a DEXA scan 2015 , showing osteopenia/osteoporosis , Plain x-ray 12/14 - no rib fracture 04/15 , a bone scan - ? compression fracture - MRI completed 12/17 DEXA - Normal levels - 06/18 BONE SCAN, NORMAL DEGENERATIVE CHANGE, 06/19 bone scan degenerative change no metastatic disease - 01/19 DEXA - osteopenia - 01/19 bone scan degenerative changes - ?moderate to significant focal activity left anterior 5th costochondral junction and right posterior 8th rib - 04/21 CT right medial posterior eighth rib which in this demonstrates destructive lesion which also extends to the right transverse process of T8 slightly increased compared to prior imaging. Therapeutic plan: Continue with PSA monitoring [facility] Medical History Pure hypercholesterolemia Benign essential hypertension BRBPR (bright red blood per rectum) Pathologic rib fracture Acute upper gastrointestinal bleeding Annual physical exam Cough Right shoulder pain Prostate cancer Borderline high cholesterol Other forms of dyspnea Achilles tendon pain Hypogonadism in male HTN (hypertension) MDD (major depressive disorder), recurrent episode Anxiety Asthma Prostate cancer metastatic to bone Surgical History H/O endoscopy H/O prostatectomy Family History Father Pneumonia Substance abuse Mother CAD (coronary artery disease) CHF (congestive heart failure) Brother Stomach cancer Substance abuse Sister Breast cancer Substance abuse Social History Household Members: Friend(s) Housing: House Do you presently have visiting nurse or other home services: No Alcohol intake: never Patient Tobacco Use Status: Never used Tobacco Years Smoked: 40 yrs e-Cigarette/Vaping Use: Never Used Second Hand Smoke Exposure: No Substance Use Type: Marijuana service: No Current occupational status: unemployed Current occupation: [employer] Cognitive needs: No Hearing needs: No Vision needs: Yes (Pt went to an eye doctor about 4 years ago. ) Review of Systems Const Denies chills and Denies fever(s) Card Reports no additional complaints and Denies syncope Resp Denies cough GI Denies abdominal pain and Denies heartburn Reports as per HPI and Denies change in libido Neuro Denies syncope Psych Denies change in libido Endo Denies change in libido Physical Exam Const General: cooperative, healthy appearing, comfortable and no acute distress Orientation/consciousness: patient oriented x3 HEENT Face and sinus: Yes normal facial exam Mouth: moist mucous membranes Neck Neck: Yes normal visual inspection, Yes full ROM and Yes trachea midline Chest Chest palpation & inspection: normal inspection of the chest Resp Effort & Inspection: normal respiratory effort, able to speak in complete sentences and no respiratory distress GI Inspection: Yes normal to inspection Back/Spine/Pelvis Cervical Spine: normal cervical lordosis Thoracic/Lumbar Spine: thoracic and lumbar spine normal to inspection Skin General skin exam: no rashes or lesions noted Neuro General: patient oriented x3, gait normal, tone normal and moves all extremities Extrem General: Yes normal to inspection and Yes capillary refill normal Assessment & Plan Assessment & Plan (1) Prostate cancer metastatic to bone: Comment: Intermittent hormone therapy Code(s): C61 - Malignant neoplasm of prostate; C79.51 - Secondary malignant neoplasm of bone Category: Medical Plan Three-month follow-up Gn[facility] office Patient Instructions: This note is constructed using voice recognition software. While every effort has been made to ensure accuracy lamp cleaner street light errors may have been included. Imaging studies, laboratory and physical exam results were discussed and reviewed in detail. No major barriers to patient understanding were identified. An opportunity to ask questions regarding the treatment plan was provided. All questions were answered. The patient expressed understanding and agreement with the above treatment plan. The patient is aware they should contact our office by phone for worsening of their current condition or the appearance of new urologic symptoms. Compliance is encouraged with any medications and followup testing that is ordered. It is a privilege to participate in the urologic care of your patient. If you have any questions or concerns regarding treatment for the above conditions, or other urologic issues, please do not hesitate to contact me. The office telephone contact is [phone]. Sincerely, Dr Chano Chen MD, [facility] - Urology Compassionate Specialist Care for the Genitourinary System Coding Level of Care Code Est Pt Level 3 (04669) Complex EM visit Add On G2211 Diagnoses Prostate cancer metastatic to bone C61; C79.51
--- OUTSIDE RECORDS SUMMARY | 2025-05-08 13:46 | XMS_ITS | Encounter Summary ---
Author Organization [facility] Address [address] [place] [address] [address] [place] [address] Phone Care Team Providers Care Cnc Router Operator Name Role Phone Chirag River MD Primary Care Provider [phone] Wilfred Maynard MD Unavailable [phone] Vira Nur MD Unavailable [phone] Gadiel Tripp Unavailable [phone] Wilfred Maynard MD Unavailable [phone] Leslie Coello RN Unavailable [email or web address] Scott Hooper Unavailable [phone] Gadiel Tripp Primary Care Provider + Encounter Details Date Type Department Care Team (Late st Contact Info) Description 04/22/2023 Procedure Pass [facility] Cardiovascular And Interventional Radiology [address] [place], [place] [id number] Social History Tobacco Use Types Packs/Day Years [...] Care Team (Late st Contact Info) Description 05/28/2025 3:20 PM EDT Nutrition [facility] at [address] [address] Scott Hooper MBBS [address] [place] [phone] [email or web address] 05/28/2025 3:40 PM EDT Office Visit [facility] at [address] [address] Scott Hooper [address] [address] [email or web address] documented as of this encounter Visit Diagnoses Not on filedocumented in this encounter Care Teams Cnc Router Operator Relationship Specialty Start Date End Date Chirag River MD [address] [place] [phone] PCP - General Internal Medicine 06/21/15 12/18/24 Gadiel Tripp PA [address] [place] [phone] PCP - General Physician Latin American Studies Director 12/19/24 Wilfred Maynard MD [address] [place] [phone] Referring Physician Internal Medicine 11/19/15 Vira Nur MD [address] [place] [phone] [email or web address] Medical [email or web address] 04/16/23 Gadiel Tripp PA [address] [place] [address] Physician Latin American Studies Director 04/16/23 Wilfred Maynard MD [address] [place] [address] Referring Physician Medical Oncology 04/16/23 Leslie Coello, FLAKITO [address] [place] [address] [email or web address] Primary Infusion Nurse 02/22/24 Scott Hooper MBBS [address] [place] [address] [email or web address] Medical Oncology 03/01/24 documented as of this encounter Additional Source Comments The information contained in this document represents components of the legal health record. It is not the complete legal health record.[facility]
--- OUTSIDE RECORDS SUMMARY | 2025-05-08 13:46 | XMS_ITS | Encounter Summary ---
Author Organization [facility] Address [address] [place] [address] [address] [place] [address] Phone Care Team Providers Care Coal Cager Name Role Phone Chirag River MD Primary Care Provider [phone] Wilfred Maynard MD Unavailable [phone] Vira Nur MD Unavailable [phone] Gadiel Tripp Unavailable [phone] Wilfred Maynard MD Unavailable [phone] Leslie Coello RN Unavailable [email or web address] Scott Hooper Unavailable [phone] Gadiel Tripp Primary Care Provider + Encounter Details Date Type Department Care Team (Late st Contact Info) Description 04/22/2023 Procedure Pass [facility], Ct Scan - [address] [phone] Social History Tobacco Use Types Packs/Day Years [...] Info) Description 05/28/2025 3:20 PM EDT Nutrition [facility] at [address] [address] Scott Hooper MBBS [address] [place] [phone] [email or web address] 05/28/2025 3:40 PM EDT Office Visit [facility] at [address] [address] [address] Hooper [address] [address] [email or web address] documented as of this encounter Visit Diagnoses Not on filedocumented in this encounter Care Teams Coal Cager Relationship Specialty Start Date End Date Chirag River MD [address] [place] [phone] PCP - General Internal Medicine 06/21/15 12/18/24 Gadiel Tripp PA [address] [place] [address] PCP - General Physician Security Incident Response Specialist 12/19/24 Wilfred Maynard MD [address] [place] [address] Referring Physician Internal Medicine 11/19/15 Vira Nur MD [address] [place] [phone] [email or web address] 04/16/23 Gadiel Tripp PA [address] [place] [address] Physician Security Incident Response Specialist 04/16/23 Wilfred Maynard MD [address] [place] [address] Referring Physician Medical Oncology 04/16/23 Leslie Coello, FLAKITO [address] [place] [address] [email or web address] Primary Infusion Nurse 02/22/24 Scott Hooper MBBS [address] [place] [address] [email or web address] Medical Oncology 03/01/24 documented as of this encounter Additional Source Comments The information contained in this document represents components of the legal health record. It is not the complete legal health record.[facility]
--- OUTSIDE RECORDS SUMMARY | 2025-05-08 13:46 | XMS_ITS ---
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 We discussed at length with pt re: pain management strategy with anti-inflammatory agent such as dexamethasone, radiation therapy, and opioids. We reviewed how pt may have increased inflammation post radiation for a week before pain needs decrease. We also discussed differences between long-acting opioid (for baseline pain and pain at rest) and short-acting opioids prn (for breakthrough pain and pain with movement). We reviewed the different options for long-acting opioids (MSContin, Oxycontin, fentanyl patch) and discussed how he is currently on a fentanyl patch. Because fentanyl patch is a long-acting opioid, we shared that effectiveness of fentanyl patch can be measured by what his baseline pain is (ie it does not act like a short-acting opioid where the pain will decrease within 15 min or an hour of taking the dose (IV or oral dose respectively). Given that steroids will be started today and he is currently constipated, would continue current opioid regimen for now and monitor prn opioid use. On 02/15- oxycodone and dilaudid helped his pain but only provided coverage for about 2 hours. Oxycodone 10mg ordered by the team is also not enough. Would increase range for oxycodone to reflect equivalent dilaudid IV dose, and also based on his last 24 hour use, and taking in 50% with dose reduction, can go up on fentanyl patch by another 25mcg/hr. He prefers this approach so that he doesn't need to take the dilaudid or oxy as often, and so that he has better background pain control. On 02/16- Improved pain control after adjusting fentanyl patch to 50mcg/hr TD. No sedation noted. Will continue to monitor prn opioid use to determine if further adjustment of long-acting opioid is needed. If pain remains well-controlled at rest, anticipate use of prn opioids for incident pain. - Continue dexamethasone 4mg po qam (pt to start radiation therapy soon) - Continue fentanyl patch 50mcg/hr TD q72h - Continue dilaudid 0.5mg-1mg IV q3h prn pain - Continue oxycodone 10mg-20mg po q3h prn pain # Constipation, at risk Improved nausea and abd pain after BM. Encourage use of oral bowel regimen. Aim for daily BM. - Continue senna 2 tabs po bid - Continue miralax 17g po bid Assessment & Plan (02/15/2025 10:29 AM EDT): # Acute on chronic cancer-related pain Likely 2/2 bone mets. We discussed at length with pt re: pain management strategy with anti-inflammatory agent such as dexamethasone, radiation therapy, and opioids. We reviewed how pt may have increased inflammation post radiation for a week before pain needs decrease. We also discussed differences between long-acting opioid (for baseline pain and pain at rest) and short-acting opioids prn (for breakthrough pain and pain with movement). We reviewed the different options for long-acting opioids (MSContin, Oxycontin, fentanyl patch) and discussed how he is currently on a fentanyl patch. Because fentanyl patch is a long-acting opioid, we shared that effectiveness of fentanyl patch can be measured by what his baseline pain is (ie it does not act like a short-acting opioid where the pain will decrease within 15 min or an hour of taking the dose (IV or oral dose respectively). Given that steroids will be started today and he is currently constipated, would continue current opioid regimen for now and monitor prn opioid use. Checking in on him today, the oxycodone and dilaudid help his pain but only provide coverage for about 2 hours. Oxycodone 10mg ordered by the team is also not enough. Would increase range for oxycodone to reflect equivalent dilaudid IV dose, and also based on his last 24 hour use, and taking in 50% with dose reduction, can go up on fentanyl patch by another 25mcg/hr. He prefers this approach so that he doesn't need to take the dilaudid or oxy as often, and so that he has better background pain control. - continue dexamethasone 4mg po qam, first dose today - Increase fentanyl patch from 25mcg/hr to 50mcg/hr TD q72h - Agree with dilaudid 0.5mg-1mg IV q3h prn pain - increase oxycodone range to 10mg-20mg po q3h prn pain # Constipation No BM x 5 days. Unclear if current severe pain is related to cancer-related pain, constipation or both. Encourage use of oral bowel regimen. Aim for daily BM. No BM with dulcolax supp. - Recommend soap suds enema x 1 today. If no BM, recommend milk with molasses enema (6oz molasses mixed with 6oz of warm milk, delivered in enema bag) - Increase senna to 2 tabs po bid - Continue miralax 17g po bid Assessment & Plan (02/14/2025 4:42 PM EDT): # Acute on chronic cancer-related pain Likely 2/2 bone mets. We discussed at length with pt re: pain management strategy with anti-inflammatory agent such as dexamethasone, radiation therapy, and opioids. We reviewed how pt may have increased inflammation post radiation for a week before pain needs decrease. We also discussed differences between long-acting opioid (for baseline pain and pain at rest) and short-acting opioids prn (for breakthrough pain and pain with movement). We reviewed the different options for long-acting opioids (MSContin, Oxycontin, fentanyl patch) and discussed how he is currently on a fentanyl patch. Because fentanyl patch is a long-acting opioid, we shared that effectiveness of fentanyl patch can be measured by what his baseline pain is (ie it does not act like a short-acting opioid where the pain will decrease within 15 min or an hour of taking the dose (IV or oral dose respectively). Given that steroids will be started today and he is currently constipated, would continue current opioid regimen for now and monitor prn opioid use. - Start dexamethasone 4mg po qam, first dose today - Continue fentanyl patch 25mcg/hr TD q72h - Agree with dilaudid 0.5mg-1mg IV q3h prn pain - Continue oxycodone 10mg-20mg po q3h prn pain # Constipation No BM x 5 days. Unclear if current severe pain is related to cancer-related pain, constipation or both. Encourage use of oral bowel regimen. Aim for daily BM. No BM with dulcolax supp. - Recommend soap suds enema x 1 today. If no BM, recommend milk with molasses enema (6oz molasses mixed with 6oz of warm milk, delivered in enema bag) - Increase senna to 2 tabs po bid - Continue miralax 17g po bid Cancer related pain 02/13/2025 Assessment & Plan (02/22/2025 2:41 PM EDT): Chronic back pain. Most recently seen by outpt Rad Onc on 01/16. Was planned to start RT, but was lost to follow up. Presented to OSH with progressively worsening back pain notably w/ recent MRI T spine 01/31 with lytic lesion at R paraspinal region at T7 causing destruction of R 7th-9th ribs, T7-8 transverse processes, new osseous lesions T6, T5, T9 and epidural thickening and enhancement at T7-8, all representin POD. No e/o LMD or cord compression. No reported red flag symptoms.Reported new right flank pain 02/17 w/ KUB unrevealing, LFT stable; overall likely related to R rib mets. Pain regimen at time of transfer: Fentanyl 25 mcg SD q72hrs (new at OSH), Oxycodone 10 mg q4hrs PRN (home med). On [facility] transfer, pt reported minimal improvement w/ above regimen. PPC c/s to assist with med adjustments. Rad Onc c/s, started on PO Dex and initiated radiation to T-spine on 02/19 (s/p mapping 02/16). Pain improved with pain medication adjustments including inc in fentanyl patch and oxy PO PRN. 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 Most recently seen by outpt Rad Onc on 01/16. Was planned to start RT, but was lost to follow up. Presented to OSH with progressively worsening back pain notably w/ recent MRI T spine 01/31 with lytic lesion at R paraspinal region at T7 causing destruction of R 7th-9th ribs, T7-8 transverse processes, new osseous lesions T6, T5, T9 and epidural thickening and enhancement at T7-8, all representin POD. No e/o LMD or cord compression. No reported red flag symptoms.Reported new right flank pain 02/17 w/ KUB unrevealing, LFT stable; overall likely related to R rib mets. Pain regimen at time of transfer: Fentanyl 25 mcg SD q72hrs (new at OSH), Oxycodone 10 mg q4hrs PRN (home med). On [facility] transfer, pt reported minimal improvement w/ above regimen. PPC c/s to assist with med adjustments. Rad Onc c/s, started on PO Dex and initiated radiation to T-spine on 02/19 (s/p mapping 02/16). Pain regimen continues to be titrated w/ improvement. - Appreciate Rad Onc involvement: planned for XRT to T5-9, 20 Gy in 5Fr; (D1: 02/19) - Appreciate NSGY involvement: no neurosurgical intervention recommended - Appreciate PPC involvement - Continue Fentanyl 50mcg q72h (last inc 02/15) - Continue Oxycodone 10-20mg PO q3h PRN (last inc 02/15) - Continue Dilaudid 0.5-1mg IV q3h PRN - Continue Acetaminophen 650mg PO q6h PRN - Continue Lidocaine patch (2) to back and (1) for hips - Continue Dexamethasone 4mg PO daiily (D1: 02/14) - Continue Nexium 20mg PO daily for GI ppx while on steroids - Continue Oramagic 4x daily for radiation induced esophagitis ppx - Continue MMW swish and swallow 4x daily PRN for sore throat - Nursing Communication placed to give PRN compazine prior to XRT given nausea during 02/20 Fx - Consider PJP ppx pending plan for steroid course Assessment & Plan (02/20/2025 2:13 PM EDT): Chronic back pain. Most recently seen by outpt Rad Onc on 01/16. Was planned to start RT, but was lost to follow up. Presented to OSH with progressively worsening back pain notably w/ recent MRI T spine 01/31 with lytic lesion at R paraspinal region at T7 causing destruction of R 7th-9th ribs, T7-8 transverse processes, new osseous lesions T6, T5, T9 and epidural thickening and enhancement at T7-8, all representin POD. No e/o LMD or cord compression. No reported red flag symptoms. Did endorse new right flank pain 02/17 w/ KUB unrevealing, LFT stable; overall likely related to R rib mets. Pain regimen at time of transfer: Fentanyl 25 mcg SD q72hrs (new at OSH), Oxycodone 10 mg q4hrs PRN (home med). On [facility] transfer, pt reports minimal improvement w/ above regimen. PPC c/s to assist with med adjustments. Rad Onc c/s, started on PO Dex and plan to start radiation to T-spine on 02/19 (s/p mapping 02/16). Pain regimen continues to be titrated w/ improvement. 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 Most recently seen by outpt Rad Onc on 01/16. Was planned to start RT, but was lost to follow up. Presented to OSH with progressively worsening back pain notably w/ recent MRI T spine 01/31 with lytic lesion at R paraspinal region at T7 causing destruction of R 7th-9th ribs, T7-8 transverse processes, new osseous lesions T6, T5, T9 and epidural thickening and enhancement at T7-8, all representin POD. No e/o LMD or cord compression. No reported red flag symptoms. Did endorse new right flank pain 02/17 w/ KUB unrevealing, LFT stable; overall likely related to R rib mets. Pain regimen at time of transfer: Fentanyl 25 mcg SD q72hrs (new at OSH), Oxycodone 10 mg q4hrs PRN (home med). On [facility] transfer, pt reports minimal improvement w/ above regimen. PPC c/s to assist with med adjustments. Rad Onc c/s, started on PO Dex and plan to start radiation to T-spine on 02/19 (s/p mapping 02/16). Pain regimen continues to be titrated w/ improvement. 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 Most recently seen by outpt Rad Onc on 01/16. Was planned to start RT, but was lost to follow up. Presented to OSH with progressively worsening back pain notably w/ recent MRI T spine 01/31 with lytic lesion at R paraspinal region at T7 causing destruction of R 7th-9th ribs, T7-8 transverse processes, new osseous lesions T6, T5, T9 and epidural thickening and enhancement at T7-8, all representin POD. No e/o LMD or cord compression. No reported red flag symptoms. Did endorse new right flank pain 02/17 w/ KUB unrevealing, LFT stable; overall likely related to R rib mets. Pain regimen at time of transfer: Fentanyl 25 mcg SD q72hrs (new at OSH), Oxycodone 10 mg q4hrs PRN (home med). On [facility] transfer, pt reports minimal improvement w/ above regimen. PPC c/s to assist with med adjustments. Rad Onc c/s, started on PO Dex and plan to start radiation to T-spine on 02/19 (s/p mapping 02/16). Pain regimen continues to be titrated w/ improvement. - Appreciate Rad Onc involvement: planned for XRT to T5-9, 20 Gy in 5Fr starting 02/19 - Appreciate NSGY involvement: no neurosurgical intervention recommended - Appreciate PPC involvement: see below - Continue Fentanyl 50mcg Q72h (last inc 02/15) - Continue Oxycodone 10-20mg q3hr PRN (last inc 02/15) - Continue Dilaudid 0.5-1mg q3hr PRN - Continue Acetaminophen 650mg PO Q6h PRN - Continue Lidocaine patch (2) to back and (1) for hips - Continue Dexamethasone 4mg QD (D1 02/14) - Continue Nexium 20mg PO QD for GI PPX while on steroids - Consider PJP ppx pending plan for steroid course Assessment & Plan (02/17/2025 2:50 PM EDT): Chronic back pain. Most recently seen by outpt Rad Onc on 01/16. Was planned to start RT, but was lost to follow up. Presented to OSH with progressively worsening back pain notably w/ recent MRI T spine 01/31 with lytic lesion at R paraspinal region at T7 causing destruction of R 7th-9th ribs, T7-8 transverse processes, new osseous lesions T6, T5, T9 and epidural thickening and enhancement at T7-8, all representin POD. No e/o LMD or cord compression. No reported red flag symptoms. Pain regimen at time of transfer: Fentanyl 25 mcg SD q72hrs (new at OSH), Oxycodone 10 mg q4hrs PRN (home med). On [facility] transfer, pt reports minimal improvement w/ above regimen. PPC c/s to assist with med adjustments. Rad Onc c/s, started on PO Dex and plan to start radiation to T-spine on 02/19 (s/p mapping 02/16). Pain regimen continues to be titrated w/ improvement. - Appreciate Rad Onc involvement: planned for XRT to T-spine x 5Fr starting 02/19 - Appreciate NSGY involvement: no neurosurgical intervention recommended - Appreciate PPC involvement: see below - Continue Fentanyl 50mcg Q72h (last inc 02/15) - Continue Oxycodone 10-20mg q3hr PRN (last inc 02/15) - Continue Dilaudid 0.5-1mg q3hr PRN - Continue Acetaminophen 650mg PO Q6h PRN - Continue Lidocaine patch (2) to back and (1) for hips - Continue Dexamethasone 4mg QD (D1 02/14) - Continue Nexium 20mg PO QD for GI PPX while on steroids - Consider PJP ppx pending plan for steroid course Assessment & Plan (02/16/2025 4:45 PM EDT): Chronic back pain. Most recently seen by outpt Rad Onc on 01/16. Was planned to start RT, but was lost to follow up. Presented to OSH with progressively worsening back pain notably w/ recent MRI T spine 01/31 with lytic lesion at R paraspinal region at T7 causing destruction of R 7th-9th ribs, T7-8 transverse processes, new osseous lesions T6, T5, T9 and epidural thickening and enhancement at T7-8, all representin POD. No e/o LMD or cord compression. No reported red flag symptoms. Pain regimen at time of transfer: Fentanyl 25 mcg SD q72hrs (new at OSH), Oxycodone 10 mg q4hrs PRN (home med). On [facility] transfer, pt reports minimal improvement w/ above regimen. PPC c/s to assist with med adjustments. Rad Onc c/s, started on PO Dex and plan to start radiation to T-spine on 02/19 (s/p mapping 02/16). Pain regimen continues to be titrated w/ improvement. - Appreciate Rad Onc involvement: planned for XRT to T-spine x 5Fr starting 02/19 - Appreciate NSGY involvement: no neurosurgical intervention recommended - Appreciate PPC involvement: see below - Continue inc Fentanyl 50mcg Q72h (last inc 02/15) - Continue inc Oxycodone 10-20mg q3hr PRN (last inc 02/15) - Continue Dilaudid 0.5-1mg q3hr PRN - Continue Acetaminophen 650mg PO Q6h PRN - Continue Lidocaine patch (2) to back and (1) for hips - Continue Dexamethasone 4mg QD (D1 02/14) - Continue Nexium 20mg PO QD for GI PPX while on steroids Assessment & Plan (02/15/2025 12:49 PM EDT): Ongoing pain control issue, most recently saw [facility] outpatient 01/16. Was planned to start RT after MRI, but was lost to follow up. Presented to OSH with progressively worsening back pain notably w/ recent MRI T spine 01/31 with lytic lesion at R paraspinal region at T7 causing destruction of R 7th-9th ribs, T7-8 transverse processes, new osseous lesions T6, T5, T9 and epidural thickening and enhancement at T7-8 w/o LMD enhancement or cord compression representing POD compared to next most recent image. No red flag symptoms. Pain regimen at time of transfer: Fentanyl 25 mcg SD q72hrs (new at OSH), oxycodone 10 mg q4hrs PRN (home med). On this regimen he endorsed minimal improvement of pain. PPC c/s w/ recs. He was started on Dex 4mg 02/14 per rad onc recommendations. He is planned to be started on radiation therapy tentatively planned for 5 Fx starting 02/19 after mapping 02/16. Pain regimen continues to be titrated Outpatient Rad Oncologist: Dr Zahng - Appreciate Rad Onc involvement, planned for radiation starting 02/19 - Appreciate PPC involvement - Appreciate NSGY involvement - Appreciate SPRO involvement - Increase Fentanyl 50mcg Q72h (Increased 02/15) - Increase oxycodone to 10-20mg q3hr PRN (Increased 02/15) - Continue dilaudid 0.5-1mg q3hr PRN - Continue acetaminophen 650mg PO Q6h PRN - Continue lidocaine patch (2) to back and (1) for hips - Continue Dexamethasone 4mg IV QD (D1 02/14) - Continue esomeprazole 20mg PO QD for GI PPX while on steroids Assessment & Plan (02/14/2025 3:29 PM EDT): Presented to OSH with progressively worsening back pain with recent MRI spine w/ MRI T spine 01/31 with lytic lesion at R paraspinal region at T7 causing destruction of R 7th-9th ribs, T7-8 transverse processes, new osseous lesions T6, T5, T9 and epidural thickening and enhancement at T7-8 w/o LMD enhancement or cord compression. No red flag symptoms. Pain regimen at time of transfer: Fentanyl 25 mcg SD q72hrs, oxycodone 10 mg q4hrs PRN. On this regimen he endorsed minimal improvement of pain. He was started on Dex 4mg 02/14 per rad onc recommendations. He is planned to be started on radiation therapy tentatively planned for 5 Fx starting 02/19. - Appreciate NSGY involvement - Appreciate Rad Onc involvement, planned for radiation starting 02/19 - Appreciate SPRO involvement - Appreciate PPC involvement - Continue Fentanyl 25mcg - Continue home oxycodone 10mg q4hr PRN - Continue dilaudid 0.5-1mg q3hr PRN - Continue acetaminophen 1gm TID PRN - Continue lidocaine patch (2) to back - Start Dexamethasone 4mg IV QD (D1 02/14) Prostate cancer 02/13/2025 Electrolyte abnormality 02/09/2025 Assessment & Plan (02/12/2025 3:05 PM EDT): Hypokalemia 3.2 on admission, Mag 1.4. ISO vomiting, poor PO intake. Repleted Assessment & Plan (02/11/2025 12:00 PM EDT): Hypokalemia 3.2 on admission, Mag 1.4. ISO vomiting, poor PO intake. Replete to goal. - trend bmp daily Anemia 02/09/2025 Assessment & Plan (02/12/2025 3:05 PM EDT): History of anemia, baseline of about 10-11. No signs of active bleeding. Assessment & Plan (02/11/2025 12:00 PM EDT): History of anemia, baseline of about 10-11. No signs of active bleeding. Suspect anemia of chronic disease. - Trend cbc periodically Assessment & Plan (02/10/2025 4:29 PM EDT): History of anemia, baseline of about 10-11. Slightly down today though likely hemodilutional. No signs of active bleeding. Suspect anemia of chronic disease. - Trend Assessment & Plan (02/09/2025 10:36 AM EDT): History of anemia, baseline of about 10-11. Slightly down today though likely hemodilutional. No signs of active bleeding. Suspect anemia of chronic disease. - Trend Prostate cancer metastatic to bone 02/08/2025 Assessment & Plan (02/12/2025 3:05 PM EDT): He has uncontrolled pain involving the spine contributing to nausea and vomiting. Metastatic prostate cancer, stage IV with mets to the spine. Initially diagnosed in 2005. Developed recurrence with spine involvement in January 2024. He is on Nubeqa as well as Lupron. 01/01/2025: Bone scan: Intense uptake of the T7 and T8 vertebra and right seventh and eighth ribs, correlating with mildly PSMA avid sclerotic lesions on prior PSMA PET/CTs. 01/04/2025: MRI abdomen: No liver lesion. No acute abnormality in the abdomen or pelvis. 01/31/2025: Lytic lesion centered in the right paraspinal region at the level of T7 causing destruction of the adjacent right seventh, eighth and ninth ribs and T7 and T8 right transverse processes. New osseous extension into the T6, T5 and T9 vertebral bodies since MRI dated 04/02/2024. Epidural thickening and enhancement at the level of T7 and T8, similar to prior, possibly representing tumor involvement. No focal weakness currently. Does have chronic numbness in the lower extremities. No bladder or bowel incontinence. No saddle paresthesia. He was evaluated by radiation oncology (Dr Zhang) 01/16, recommended to follow- up with Dr. Fuller. Recommend radiosurgery to the spine at [facility] with dedicated specialist. 02/10: started on low dose fentanyl patch, with scheduled oxy to continue for 12 hours and then be available prn moving forward. 02/11: pain much worse this morning as last dose of oxycodone was at midnight (more than 8 hours ago) -Increase fentanyl to 25 mcg topically -received dilaudid 2 mg x 1 IV for acute pain -resume oxycodone 10 mg every 4 hours scheduled, patient may decline dose -transfer to [facility] requested; patient accepted by Dr Vira Valencia; awaiting available bed - Resume Nubeqa when tolerating PO - CODE STATUS discussed, he will consider DNR/DNI, remains full code Assessment & Plan (02/11/2025 12:00 PM EDT): He has uncontrolled pain involving the spine contributing to nausea and vomiting. Metastatic prostate cancer, stage IV with mets to the spine. Initially diagnosed in 2005. Developed recurrence with spine involvement in January 2024. He is on Nubeqa as well as Lupron. 01/01/2025: Bone scan: Intense uptake of the T7 and T8 vertebra and right seventh and eighth ribs, correlating with mildly PSMA avid sclerotic lesions on prior PSMA PET/CTs. 01/04/2025: MRI abdomen: No liver lesion. No acute abnormality in the abdomen or pelvis. 01/31/2025: Lytic lesion centered in the right paraspinal region at the level of T7 causing destruction of the adjacent right seventh, eighth and ninth ribs and T7 and T8 right transverse processes. New osseous extension into the T6, T5 and T9 vertebral bodies since MRI dated 04/02/2024. Epidural thickening and enhancement at the level of T7 and T8, similar to prior, possibly representing tumor involvement. No focal weakness currently. Does have chronic numbness in the lower extremities. No bladder or bowel incontinence. No saddle paresthesia. He was seen by neurosurgery recently and no intervention was recommended at this time. He was evaluated by radiation oncology 01/16, recommended to follow-up with Dr. Fuller. Recommend radiosurgery to the spine at [facility] with dedicated specialist. Dr. Hooper coordinating possible transfer to tertiary care center for palliative treatment. 02/10: will start on low dose fentanyl patch this afternoon, with scheduled oxy to continue for 12 hours and then be available prn moving forward. He has yet to be mobile, anticipate as he mobilizes will need increased pain coverage. -Palliative care, oncology consult appreciated Anticipate f/u outpatient with Dr. Fuller, Dr. Hooper has not heard back on any transfer yet - Radiation oncology may be contacted to re-review case and see if any further recommendations for possible tx to new rib lesions - Lidocaine patches - start fentanyl patch 12mcg/hr on 02/11 - Continue oxycodone 10 mg Q4 and move to prn, IV Dilaudid available for breakthrough pain -Toradol x1 again today - Resume Nubeqa when tolerating PO - CODE STATUS discussed, he will consider DNR/DNI, remains full code Assessment & Plan (02/10/2025 4:29 PM EDT): He has uncontrolled pain involving the spine contributing to nausea and vomiting. Metastatic prostate cancer, stage IV with mets to the spine. Initially diagnosed in 2005. Developed recurrence with spine involvement in January 2024. He is on Nubeqa as well as Lupron. 01/01/2025: Bone scan: Intense uptake of the T7 and T8 vertebra and right seventh and eighth ribs, correlating with mildly PSMA avid sclerotic lesions on prior PSMA PET/CTs. 01/04/2025: MRI abdomen: No liver lesion. No acute abnormality in the abdomen or pelvis. 01/31/2025: Lytic lesion centered in the right paraspinal region at the level of T7 causing destruction of the adjacent right seventh, eighth and ninth ribs and T7 and T8 right transverse processes. New osseous extension into the T6, T5 and T9 vertebral bodies since MRI dated 04/02/2024. Epidural thickening and enhancement at the level of T7 and T8, similar to prior, possibly representing tumor involvement. No focal weakness currently. Does have chronic numbness in the lower extremities. No bladder or bowel incontinence. No saddle paresthesia. He was seen by neurosurgery recently and no intervention was recommended at this time. He was evaluated by radiation oncology 01/16, recommended to follow-up with Dr. Fuller. Recommend radiosurgery to the spine at [facility] with dedicated specialist. Dr. Hooper coordinating possible transfer to tertiary care center for palliative treatment. 02/10: when he is taking the scheduled oxycodone he rarely needs prns. He has yet to be mobile, anticipate as he mobilizes will need increased pain coverage. May start on fentanyl patch tomorrow. -Palliative care, oncology consult appreciated Anticipate f/u outpatient with Dr. Fuller, Dr. Hooper has not heard back on any transfer yet - Radiation oncology for possible tx to rib lesions - Lidocaine patches - Continue oxycodone 10 mg Q4 - Additional as needed oxycodone 10 mg Q4, IV Dilaudid 1-2 mg every 4 as needed for severe pain -Toradol x1 again today - Resume Nubeqa when tolerating PO - CODE STATUS discussed, he will consider DNR/DNI, remains full code Assessment & Plan (02/09/2025 2:03 PM EDT): He has uncontrolled pain involving the spine contributing to nausea and vomiting. Metastatic prostate cancer, stage IV with mets to the spine. Initially diagnosed in 2005. Developed recurrence with spine involvement in January 2024. He is on Nubeqa as well as Lupron. 01/01/2025: Bone scan: Intense uptake of the T7 and T8 vertebra and right seventh and eighth ribs, correlating with mildly PSMA avid sclerotic lesions on prior PSMA PET/CTs. 01/04/2025: MRI abdomen: No liver lesion. No acute abnormality in the abdomen or pelvis. 01/31/2025: Lytic lesion centered in the right paraspinal region at the level of T7 causing destruction of the adjacent right seventh, eighth and ninth ribs and T7 and T8 right transverse processes. New osseous extension into the T6, T5 and T9 vertebral bodies since MRI dated 04/02/2024. Epidural thickening and enhancement at the level of T7 and T8, similar to prior, possibly representing tumor involvement. No focal weakness currently. Does have chronic numbness in the lower extremities. No bladder or bowel incontinence. No saddle paresthesia. He was seen by neurosurgery recently and no intervention was recommended at this time. He was evaluated by radiation oncology 01/16, recommended to follow-up with Dr. Fuller. Recommend radiosurgery to the spine at [facility] with dedicated specialist. Dr. Hooper coordinating possible transfer to tertiary care center for palliative treatment. 02/09: In 24 hours used 120 morphine equivalents of oxycodone, Dilaudid. He said some improvement in pain though this morning rating 7 out of 10. Vomiting resolved though still persistently nauseous. Agreeable to try liquid diet. Despite poorly controlled pain, he is intermittently refusing oxycodone, Dilaudid due to fear of addiction and medication side effect though education provided that this is best for his oncology pain and could possibly be titrated off if palliative radiation was effective. He voices understanding and will try to be more accepting of these. We did discuss fentanyl patch briefly though unwilling to try at this moment. He will see palliative care today. -Palliative care, oncology consult appreciated Anticipate f/u outpatient with Dr. Fuller, Dr. Hooper has not heard back on any transfer yet -Radiation oncology for possible tx to rib lesion - Lidocaine patches - Continue oxycodone 10 mg Q4 - Additional as needed oxycodone 10 mg Q4, IV Dilaudid 1-2 mg every 4 as needed for severe pain -Toradol x1 again today - Resume Nubeqa when tolerating PO - CODE STATUS discussed, he will consider DNR/DNI, remains full code Assessment & Plan (02/08/2025 3:13 PM EDT): He has uncontrolled pain involving the spine contributing to nausea and vomiting. Metastatic prostate cancer, stage IV with mets to the spine. Initially diagnosed in 2005. Developed recurrence with spine involvement in January 2024. He is on Nubeqa as well as Lupron. 01/01/2025: Bone scan: Intense uptake of the T7 and T8 vertebra and right seventh and eighth ribs, correlating with mildly PSMA avid sclerotic lesions on prior PSMA PET/CTs. 01/04/2025: MRI abdomen: No liver lesion. No acute abnormality in the abdomen or pelvis. 01/31/2025: Lytic lesion centered in the right paraspinal region at the level of T7 causing destruction of the adjacent right seventh, eighth and ninth ribs and T7 and T8 right transverse processes. New osseous extension into the T6, T5 and T9 vertebral bodies since MRI dated 04/02/2024. Epidural thickening and enhancement at the level of T7 and T8, similar to prior, possibly representing tumor involvement. No focal weakness currently. Does have chronic numbness in the lower extremities. No bladder or bowel incontinence. No saddle paresthesia. He was seen by neurosurgery recently and no intervention was recommended at this time. He was evaluated by radiation oncology 01/16, recommended to follow-up with Dr. Fuller. Recommend radiosurgery to the spine at [facility] with dedicated specialist. Dr. Hooper coordinating possible transfer to tertiary care center for palliative treatment. -Palliative care, oncology consult appreciated - Lidocaine patches - Continue oxycodone 10 mg Q4 - Additional as needed oxycodone 10 mg Q4, IV Dilaudid 1 mg every 4 as needed for severe pain -Toradol x1 - Resume Nubeqa when tolerating PO - CODE STATUS discussed, he will consider DNR/DNI, remains full code Nausea & vomiting 02/08/2025 Assessment & Plan (02/22/2025 2:41 PM EDT): Improved. Presented with worsened nausea and vomiting which was attributed to poorly controlled pain. Had several episodes of emesis daily on presentation to the OSH. Managed at OSH with IV PPI, zofran, compazine although Qtc 503. Also with constipation, last BM 02/10. CTAP 02/15 without acute intra-abdominal pathology, no e/o metastatic disease in abd/pelvis. Pt started on Miralax and Senna w/ resolution of constipation on 02/15. Etiology likely related controlled pain/constipation. - Continue Miralax 17g PO BID and daily PO PRN - Continue senna 2 tabs PO BID - Continue Biscodyl supp PRN for constipation - Continue Compazine 5-10mg PO/IV q6h PRN n/v and pre-med before XRT - Continue simethicone 80mg PO q6h PRN for gas Assessment & Plan (02/21/2025 12:17 PM EDT): Improved. Presented with worsened nausea and vomiting which was attributed to poorly controlled pain. Had several episodes of emesis daily on presentation to the OSH. Managed at OSH with IV PPI, zofran, compazine although Qtc 503. Also with constipation, last BM 02/10. CTAP 02/15 without acute intra-abdominal pathology, no e/o metastatic disease in abd/pelvis. Pt started on Miralax and Senna w/ resolution of constipation on 02/15. Etiology likely related controlled pain/constipation. - Continue Miralax 17g PO BID and daily PO PRN - Continue senna 2 tabs PO BID - Continue Biscodyl supp PRN for constipation - Continue Compazine 5-10mg PO/IV q6h PRN n/v and pre-med before XRT - Continue simethicone 80mg PO q6h PRN for gas Assessment & Plan (02/20/2025 2:13 PM EDT): Improved. Presents with worsened nausea and vomiting which was attributed to poorly controlled pain. Had several episodes of emesis daily on presentation to the OSH. Managed at OSH with IV PPI, zofran, compazine although Qtc 503. Also with constipation, last BM 02/10. CTAP 02/15 without acute intra-abdominal pathology, no e/o metastatic disease in abd/pelvis. Pt started on Miralax and Senna w/ resolution of constipation on 02/15. Etiology likely poorly controlled pain and constipation. - Continue Miralax 17g PO BID - Continue senna 2 tabs PO BID - Continue Biscodyl supp PRN for constipation - Continue Compazine 5-10mg q6h PRN n/v and pre-med before XRT Assessment & Plan (02/19/2025 8:03 AM EDT): Improved. Presents with worsened nausea and vomiting which was attributed to poorly controlled pain. Had several episodes of emesis daily on presentation to the OSH. Managed at OSH with IV PPI, zofran, compazine although Qtc 503. Also with constipation, last BM 02/10. CTAP 02/15 without acute intraabdominal pathology, no e/o metastatic disease in abd/pelvis. Pt started on Miralax and Senna w/ resolution of constipation on 02/15. Etiology likely poorly controlled pain and constipation. - Continue Miralax 17g PO BID - Continue senna 2 tabs PO BID - Continue Biscodyl supp PRN for constipation - Continue Compazine 5-10mg q6h PRN n/v Assessment & Plan (02/18/2025 2:39 PM EDT): Improved. Presents with worsened nausea and vomiting which was attributed to poorly controlled pain. Had several episodes of emesis daily on presentation to the OSH. Managed at OSH with IV PPI, zofran, compazine although Qtc 503. Also with constipation, last BM 02/10. CTAP 02/15 without acute intraabdominal pathology, no e/o metastatic disease in abd/pelvis. Pt started on Miralax and Senna w/ resolution of constipation on 02/15. Etiology likely poorly controlled pain and constipation. - Continue Miralax 17g PO BID - Continue senna 2 tabs PO BID - Continue Biscodyl supp PRN for constipation - Continue Compazine 5-10mg q6h PRN n/v Assessment & Plan (02/17/2025 2:50 PM EDT): Improving. Presents with worsened nausea and vomiting which was attributed to poorly controlled pain. Had several episodes of emesis daily on presentation to the OSH. Managed at OSH with IV PPI, zofran, compazine although Qtc 503. Also with constipation, last BM 02/10. CTAP 02/15 without acute intraabdominal pathology, no e/o metastatic disease in abd/pelvis. Pt started on Miralax and Senna w/ resolution of constipation on 02/15. Etiology likely poorly controlled pain and constipation. - Continue Miralax 17g PO BID - Continue senna 2 tabs PO BID - Continue Biscodyl supp PRN for constipation - Continue Compazine 5-10mg q6h PRN n/v Assessment & Plan (02/16/2025 4:45 PM EDT): Improving. Presents with worsened nausea and vomiting which was attributed to poorly controlled pain. Had several episodes of emesis daily on presentation to the OSH. Managed at OSH with IV PPI, zofran, compazine although Qtc 503. Also with constipation, last BM 02/10. Etiology likely poorly controlled pain and constipation. CTAP 02/15 without acute intraabdominal pathology, no e/o metastatic disease in abd/pelvis. Pt started on Miralax and Senna w/ resolution of constipation on 02/15. - Continue Miralax 17g PO BID - Continue senna 2 tabs PO BID - Continue Biscodyl supp PRN for constipation - Continue Compazine 5-10mg q6h PRN n/v Assessment & Plan (02/15/2025 7:20 AM EDT): Presents with worsened nausea and vomiting which was attributed to poorly controlled pain. Had several episodes of emesis daily on presentation to the OSH. Managed at OSH with IV PPI, zofran, compazine although Qtc 503. Also with constipation, last BM 02/10. Etiology likely poorly controlled pain and constipation, possibly abdominal metastatic disease contributing. - F/u CT a/p for evaluation of constipation/N/V - Repeat EKG 02/14 for QTC monitoring - Continue Miralax 17g PO BID - Continue senna 2 tabs PO BID - Continue Biscodyl supp PRN for constipation Assessment & Plan (02/14/2025 3:29 PM EDT): Presents with worsened nausea and vomiting which was attributed to poorly controlled pain. Had several episodes of emesis daily on presentation to the OSH. Managed at OSH with IV PPI, zofran, compazine although Qtc 503. Also with constipation, last BM 02/10. Etiology likely poorly controlled pain and constipation, possibly abdominal metastatic disease contributing. - F/u CT a/p for evaluation of constipation/N/V - Repeat EKG 02/14 for QTC monitoring - Continue IV PPI - Continue ativan PRN nausea - Bowel regimen: miralax BID, senna BID - Consider suppository 02/14 if still no BM Assessment & Plan (02/12/2025 3:05 PM EDT): Nausea and vomiting likely secondary to uncontrolled pain. Abdominal exam is benign. Bowel sounds are hypoactive however. Nausea remains though no vomiting. PPN started on 02/09 evening Tolerating some PO Will trial scheduled IV zofran Cont compazine prn Assessment & Plan (02/11/2025 12:00 PM EDT): Nausea and vomiting likely secondary to uncontrolled pain. He does have constipation, though no abdominal distention currently. Abdominal exam is benign. Bowel sounds are hypoactive however. Nausea remains though no vomiting. PPN started on 02/09 evening. -tolerating some liquid diet, requests trial of regular diet 02/11. - Nutrition to start calorie count 02/11 - Zofran as needed, Compazine for refractory Assessment & Plan (02/10/2025 4:29 PM EDT): Nausea and vomiting likely secondary to uncontrolled pain. He does have constipation though no abdominal distention currently. Abdominal exam is benign. Bowel sounds are hypoactive however. Nausea remains though no vomiting. QTc is improved, will try Compazine in addition to Zofran. Working on pain regimen. PPN started on 02/09 evening. -Full liquid diet for now, may advance as tolerated -Zofran as needed, Compazine for refractory -Advance diet as tolerated -KUB or CT abdomen if no improvement Assessment & Plan (02/09/2025 10:36 AM EDT): Nausea and vomiting likely secondary to uncontrolled pain. He does have constipation though no abdominal distention currently. Abdominal exam is benign. Bowel sounds are hypoactive however. Nausea remains though no vomiting. QTc is improved, will try Compazine in addition to Zofran. Working on pain regimen. -Full liquid diet for now - Continue IV LR 100/hr -Zofran as needed, Compazine for refractory -Advance diet as tolerated -KUB or CT abdomen if no improvement Assessment & Plan (02/08/2025 2:28 PM EDT): Nausea and vomiting likely secondary to uncontrolled pain. He does have constipation though no abdominal distention currently. Abdominal exam is benign. Bowel sounds are hypoactive however. -NPO except meds, sips of water -IV LR 100/hr -Zofran as needed Qtc 503; avoiding compazine for refractory 1x IV ativan -Advance diet as tolerated -KUB or CT abdomen if no improvement - Obtaining baseline comprehensive metabolic panel, magnesium, lipase, CBC Constipation 02/08/2025 Assessment & Plan (02/12/2025 3:05 PM EDT): Secondary to narcotics Last documented BM 02/10 -continue Colace twice daily, MiraLAX, senna Assessment & Plan (02/11/2025 12:00 PM EDT): Secondary to narcotics. Is passing gas, no distention. - continue bowel regimen : Colace twice daily, MiraLAX, senna - daily suppository prn -Ambulate Assessment & Plan (02/10/2025 4:29 PM EDT): Secondary to narcotics. Is passing gas, no distention. - continue bowel regimen : Colace twice daily, MiraLAX, senna -Start daily suppository prn -Ambulate Assessment & Plan (02/09/2025 10:36 AM EDT): Secondary to narcotics. Is passing gas, no distention. - Enema x 1, ineffective -Start Colace twice daily, MiraLAX, senna -Start daily suppository -Ambulate Assessment & Plan (02/08/2025 1:28 PM EDT): Secondary to narcotics. - Enema x 1 -Start Colace twice daily, MiraLAX, senna -Ambulate Hypertension 02/08/2025 Assessment & Plan (02/22/2025 2:41 PM EDT): Chronic problem. Home regimen of amlodipine 5 mg PO daily. - Continue home amlodipine 5 mg PO daily w/ hold parameters Assessment & Plan (02/21/2025 7:24 AM EDT): Chronic problem. Home regimen of amlodipine 5 mg PO daily. - Continue home amlodipine 5 mg PO daily w/ hold parameters Assessment & Plan (02/20/2025 10:29 AM EDT): Chronic problem. Home regimen of amlodipine 5 mg PO daily. - Continue home amlodipine 5 mg PO daily w/ hold parameters Assessment & Plan (02/19/2025 8:03 AM EDT): Chronic problem. Home regimen of amlodipine 5 mg PO daily. - Continue home amlodipine 5 mg PO daily w/ hold parameters Assessment & Plan (02/18/2025 11:45 AM EDT): Chronic problem. Home regimen of amlodipine 5 mg PO daily. - Continue home amlodipine 5 mg PO daily w/ hold parameters Assessment & Plan (02/17/2025 2:50 PM EDT): Chronic problem. Home regimen of amlodipine 5 mg PO daily. - Continue home amlodipine 5 mg PO daily w/ hold parameters Assessment & Plan (02/16/2025 4:45 PM EDT): Chronic problem. Home regimen of amlodipine 5 mg PO daily. - Continue home amlodipine 5 mg PO daily Assessment & Plan (02/15/2025 7:20 AM EDT): Chronic problem. Home regimen of amlodipine 5 mg PO daily. - Continue home amlodipine 5 mg PO daily Assessment & Plan (02/14/2025 1:33 PM EDT): Assessment & Plan (02/14/2025 10:43 AM EDT): Chronic problem. Home regimen of amlodipine 5 mg PO daily. - Continue home amlodipine 5 mg PO daily Assessment & Plan (02/12/2025 3:05 PM EDT): - Continue amlodipine Assessment & Plan (02/11/2025 12:00 PM EDT): - Continue amlodipine - Control pain Assessment & Plan (02/10/2025 4:29 PM EDT): - Continue amlodipine - Control pain Assessment & Plan (02/09/2025 10:36 AM EDT): - Continue amlodipine - Control pain Assessment & Plan (02/08/2025 2:03 PM EDT): - Continue amlodipine - Control pain Unspecified severe protein-calorie malnutrition 05/21/2024 Assessment & Plan (02/22/2025 2:41 PM EDT): Pt with significant N/V due to pain and constipation, reported 40# weight loss in past 6 weeks, started on 24 hr continuious PPN 100ml/hr of ensure HP with OSH nutrition guidance 02/09. Unfortunately, PPN not offered at [facility]. Improvement of symptoms s/p BM, patient planned to be continued on increased bowel regimen to avoid constipation. - Appreciate Nutrition consult - Encourage PO intake as able, continue calorie counts - Continue vitamin D3 1000 units PO daily - Continue MVI PO daily - Tx plan per #N/V - If no significant improvement may have to consider TPN or alternative Assessment & Plan (02/21/2025 12:17 PM EDT): Pt with significant N/V due to pain and constipation, reported 40# weight loss in past 6 weeks, started on 24 hr continuious PPN 100ml/hr of ensure HP with OSH nutrition guidance 02/09. Unfortunately, PPN not offered at [facility]. Improvement of symptoms s/p BM, patient planned to be continued on increased bowel regimen to avoid constipation. - Appreciate Nutrition consult - Encourage PO intake as able, continue calorie counts - Continue vitamin D3 1000 units PO daily - Continue MVI PO daily - Tx plan per #N/V - If no significant improvement may have to consider TPN or alternative Assessment & Plan (02/20/2025 2:13 PM EDT): Pt with significant N/V due to pain and constipation, reported 40# weight loss in past 6 weeks, started on 24 hr continuious PPN 100ml/hr of ensure HP with OSH nutrition guidance 02/09. Unfortunately, PPN not offered at [facility]. Improvement of symptoms s/p BM, patient planned to be continued on increased bowel regimen to avoid constipation. - Appreciate Nutrition consult - Encourage PO intake as able, continue calorie counts - Continue vitamin D3 1000 units daily - Continue MVI daily - Tx plan per #N/V - If no significant improvement may have to consider TPN or alternative Assessment & Plan (02/19/2025 8:03 AM EDT): Pt with significant N/V due to pain and constipation, reported 40# weight loss in past 6 weeks, started on 24 hr continuious PPN 100ml/hr of ensure HP with OSH nutrition guidance 02/09. Unfortunately, PPN not offered at [facility]. Improvement of symptoms s/p BM, patient planned to be continued on increased bowel regimen to avoid constipation. - Appreciate Nutrition consult - Encourage PO intake as able, continue calorie counts - Tx plan per #N/V - If no significant improvement may have to consider TPN or alternative Assessment & Plan (02/18/2025 11:45 AM EDT): Pt with significant N/V due to pain and constipation, reported 40# weight loss in past 6 weeks, started on 24 hr continuious PPN 100ml/hr of ensure HP with OSH nutrition guidance 02/09. Unfortunately, PPN not offered at [facility]. Improvement of symptoms s/p BM, patient planned to be continued on increased bowel regimen to avoid constipation. - Appreciate Nutrition consult - Encourage PO intake as able, continue calorie counts - Tx plan per #N/V - If no significant improvement may have to consider TPN or alternative Assessment & Plan (02/17/2025 10:48 AM EDT): Pt with significant N/V due to pain and constipation, reported 40# weight loss in past 6 weeks, started on 24 hr continuious PPN 100ml/hr of ensure HP with OSH nutrition guidance 02/09. Unfortunately, PPN not offered at [facility]. Improvement of symptoms s/p BM, patient planned to be continued on increased bowel regimen to avoid constipation. - Appreciate Nutrition consult - Encourage PO intake as able, continue calorie counts - Tx plan per #N/V - If no significant improvement may have to consider TPN or alternative Assessment & Plan (02/16/2025 4:45 PM EDT): Pt with significant N/V due to pain and constipation, reported 40# weight loss in past 6 weeks, started on 24 hr continuious PPN 100ml/hr of ensure HP with OSH nutrition guidance 02/09. Unfortunately, PPN not offered at [facility]. Improvement of symptoms s/p BM, patient planned to be continued on increased bowel regimen to avoid constipation. - Appreciate Nutrition consult - Encourage PO intake as able, continue calorie counts - Tx plan per #N/V - If no significant improvement may have to consider TPN or alternative Assessment & Plan (02/15/2025 7:20 AM EDT): Pt with significant N/V due to pain and constipation, reported 40# weight loss in past 6 weeks, started on 24 hr continuious PPN 100ml/hr of ensure HP with OSH nutrition guidance 02/09. Unfortunately, PPN not offered at [facility]. Improvement of symptoms s/p BM, patient planned to be continued on increased bowel regimen to avoid constipation. - Appreciate Nutrition consult - Encourage PO intake as able, continue calorie counts - mgmt as per #N/V - If no significant improvement may have to consider TPN or alternative Assessment & Plan (02/14/2025 3:29 PM EDT): Pt with significant N/V due to pain, reported 40# weight loss in past 6 weeks, started on 24 hr continuious PPN 100ml/hr of ensure HP with OSH nutrition guidance 02/09. Unfortunately, PPN not offered at [facility]. - Appreciate Nutrition consult - Encourage PO intake as able, continue calorie counts - mgmt as per #N/V - If no significant improvement may have to consider TPN or alternative Assessment & Plan (02/12/2025 3:05 PM EDT): Reports losing 40 pounds over 6 weeks, has not been able to keep meal down for some time due to pain. Nutrition consult appreciated PPN started 02/09 Calorie count underway Assessment & Plan (02/11/2025 12:00 PM EDT): Reports losing 40 pounds over 6 weeks, has not been able to keep meal down for some time due to pain. - Nutrition consult appreciated -Monitor electrolytes, Daily weight, Start multivitamin Assessment & Plan (02/10/2025 4:29 PM EDT): Reports losing 40 pounds over 6 weeks, has not been able to keep meal down for some time due to pain. - Nutrition consult appreciated -Monitor electrolytes -Daily weight - Start multivitamin Assessment & Plan (02/09/2025 11:59 AM EDT): Reports losing 40 pounds over 6 weeks, has not been able to keep meal down for some time due to pain. - Nutrition consult appreciated Starting PPN today -Monitor electrolytes -Daily weight - Start multivitamin Assessment & Plan (02/08/2025 1:28 PM EDT): Reports losing 40 pounds over 6 weeks, has not been able to keep meal down for some time due to pain. - Nutrition consult appreciated Secondary cancer of bone 04/08/2023 Malignant neoplasm of prostate 01/18/2015 Cancer Staging:Clinical stage from 02/10/2024:Stage IVB(rcTX, cN1, cM1b, Grade Group: 3, 02/10/24) - Signed by Scott Hooper MBBS on 03/16/2024 Overview (05/08/2016): IMO update Assessment & Plan (04/29/2025 12:23 PM EDT): IMPRESSION: This is a 70-year-old man with the following diagnosis: Prostate adenocarcinoma, stage IV, skeletal mets 2005: Initial diagnosis of prostate cancer, Darvin score 7, s/p radical prostatectomy - followed by PSA only recurrence - received salvage radiation therapy and ADT 12/2022: Systemic recurrence with skeletal metastatic disease with destruction of the ribs for which he received palliative radiation therapy 01/2024: Developed additional recurrence/progression of his skeletal metastatic disease with spine involvement Weight loss Pain management -managed by palliative care team Constipation Anemia-improving DISCUSSION: I discussed overall impression, natural history of the disease, stage of the disease, prognosis and further management in this regard. Patient unfortunately has stage IV malignancy which is incurable and all the treatment options are palliative in nature. On his most recent recurrence/progression of his skeletal metastatic disease with spine involvement, he was recommended to start androgen deprivation therapy, darolutamide and Taxotere chemotherapy. He was seen by neurosurgery and no intervention was recommended. PSMA PET scan and MRI of the T-spine did not show any additional disease. He completed planned 6 cycles of Taxotere chemotherapy without significant toxicity. 08/2024: Restaging PET scan was negative. Patient did well for some time until January 2025 when he developed worsening back pain for which he was hospitalized and received palliative RT to T-spine. He responded well to the above-mentioned treatment and pain is under adequate control with current pain regimen, managed by palliative care team. In regards to systemic therapy, he is scheduled to undergo restaging PSMA PET scan. PSA has been overall stable. I recommended to resume Nubeqa and he has been already receiving ADT through urology. Depending upon the PSMA PET scan, we will further decide about the need to change treatment. Weight loss: Advised to increase nutritional intake with more frequent smaller meals. Constipation: Bowel regimen was discussed. Nausea and vomiting: Intermittent in nature -could be medication induced - discussed management RECOMMENDATIONS: Resume Nubeqa Continue ADT Lupron every 6 months -gets it through urology -next is due in July Restaging PSMA PET scan is scheduled Pain management as per palliative care team Will discuss with palliative care team the need to add Neurontin for burning sensation/pain in the bilateral lower extremities Advised to increase nutritional intake with more frequent smaller meals Bowel regimen was discussed We will also add antibone resorption therapy Return for follow-up in 3 to 4 weeks Thank you very much for allowing to participate in this patient's care Assessment & Plan (02/22/2025 2:41 PM EDT): Initially diagnosed in 2005. S/p radical prostatectomy (2005). Found to have rib met in 2022 s/p RT apr 2023. Currently treated w/ Lupron Q6 months and Darolutamide QD (however pt admits to not taking Darolutamide for several months PLATE P[employer] given poor appetite/poor PO intake and was told he is supposed to take this with food). Course c/b worsening #cancer pain, MRI entire spine 02/15 shows bony mets T5-9 w/ minimally increased paraspinal component w/ epidural disease, but no cord compression. Restaging CTCAP 02/15 w/o evidence of metastatic disease in chest or abd/pelvis but did reveal sclerotic lesions including at R posterior eighth rib. Primary Onc: Dr. Vira Valencia ([facility])/Local Oncologst: Dr. Maynard ([facility]); Outpatient Rad Onc: Dr Zhang - Onc plan per primary onc team: updated 02/20 and saw pt in house on 02/21 - Appreciate SW involvement for adjustment to illness - Resume home Darolutamide on discharge per prim onc - Continue home Lexapro 20mg PO daily - Continue melatonin 4.5mg PO qHS - Continue Trazodone 25mg pO qHs PRN insomnia (D1: 02/20) - Continue maalox 10mL PO q4h PRN for indigestion - Continue TUMS 1g PO q6h PRN - Moderate risk for DVT: heparin ppx Assessment & Plan (02/21/2025 12:17 PM EDT): Initially diagnosed in 2005. S/p radical prostatectomy (2005). Found to have rib met in 2022 s/p RT apr 2023. Currently treated w/ Lupron Q6 months and Darolutamide QD (however pt admits to not taking Darolutamide for several months PLATE P[employer] given poor appetite/poor PO intake and was told he is supposed to take this with food). Course c/b worsening #cancer pain, MRI entire spine 02/15 shows bony mets T5-9 w/ minimally increased paraspinal component w/ epidural disease, but no cord compression. Restaging CTCAP 02/15 w/o evidence of metastatic disease in chest or abd/pelvis but did reveal sclerotic lesions including at R posterior eighth rib. Primary Onc: Dr. Vira Valencia ([facility])/Local Oncologst: Dr. Maynard ([facility]); Outpatient Rad Onc: Dr Zhang - Onc plan per primary onc team: updated 02/20 and saw pt in house on 02/21 - Appreciate SW involvement for adjustment to illness - Resume home Darolutamide on discharge per prim onc - Continue home Lexapro 20mg PO daily - Continue melatonin 4.5mg PO qHS - Continue Trazodone 25mg pO qHs PRN insomnia (D1: 02/20) - Continue maalox 10mL PO q4h PRN for indigestion - Continue TUMS 1g PO q6h PRN - Moderate risk for DVT: heparin ppx Assessment & Plan (02/20/2025 2:13 PM EDT): Initially diagnosed in 2005. S/p radical prostatectomy (2005). Found to have rib met in 2022 s/p RT apr 2023. Currently treated w/ Lupron Q6 months and Darolutamide QD (however pt admits to not taking Darolutamide for several months PLATE P[employer] given poor appetite/poor PO intake and was told he is supposed to take this with food). Course c/b worsening #cancer pain, MRI entire spine 02/15 shows bony mets T5-9 w/ minimally increased paraspinal component w/ epidural disease, but no cord compression. Restaging CTCAP 02/15 w/o evidence of metastatic disease in chest or abd/pelvis but did reveal sclerotic lesions including at R posterior eighth rib. Primary Onc: Dr. Vira Valencia ([facility])/Local Oncologst: Dr. Maynard ([facility]); Outpatient Rad Onc: Dr Zhang - Onc plan per primary onc team: updated 02/20 - Appreciate SW involvement for adjustment to illness - Resume home Darolutamide when tolerating PO (if Dr. Valencia recommends this, updated 02/20) - Continue home Lexapro 20mg PO QD - Continue melatonin 4.5mg PO qHS - Start Trazodone 25mg qHs PRN insomnia - Moderate risk for DVT: heparin ppx Assessment & Plan (02/19/2025 12:01 PM EDT): Initially diagnosed in 2005. S/p radical prostatectomy (2005). Found to have rib met in 2022 s/p RT apr 2023. Currently treated w/ Lupron Q6 months and Darolutamide QD (however pt admits to not taking Darolutamide for several months PL[employer] P[employer] given poor appetite/poor PO intake and was told he is supposed to take this with food). Course c/b worsening #cancer pain, MRI entire spine 02/15 shows bony mets T5-9 w/ minimally increased paraspinal component w/ epidural disease, but no cord compression. Restaging CTCAP 02/15 w/o evidence of metastatic disease in chest or abd/pelvis but did reveal sclerotic lesions including at R posterior eighth rib. Primary Onc: Dr. Vira Valencia ([facility])/Local Oncologst: Dr. Maynard ([facility]); Outpatient Rad Onc: Dr Zhang - Onc plan per primary onc team: will be updated 02/19 - Appreciate SW involvement for adjustment to illness - Resume home Darolutamide when tolerating PO (if Dr. Valencia recommends this, updated 02/19) - Continue home Lexapro 20mg PO QD - Continue melatonin 4.5mg PO qHS - Moderate risk for DVT: heparin ppx Assessment & Plan (02/18/2025 2:39 PM EDT): Initially diagnosed in 2005. S/p radical prostatectomy (2005). Found to have rib met in 2022 s/p RT apr 2023. Currently treated w/ Lupron Q6 months and Darolutamide QD (however pt admits to not taking Darolutamide for several months PLATE P[employer] given poor appetite/poor PO intake and was told he is supposed to take this with food). Course c/b worsening #cancer pain, MRI entire spine 02/15 shows bony mets T5-9 w/ minimally increased paraspinal component w/ epidural disease, but no cord compression. Restaging CTCAP 02/15 w/o evidence of metastatic disease in chest or abd/pelvis but did reveal sclerotic lesions including at R posterior eighth rib. Primary Onc: Dr. Vira Valencia ([facility])/Local Oncologst: Dr. Maynard ([facility]); Outpatient Rad Onc: Dr Zhang - Onc plan per primary onc team updated 02/16 - Appreciate SW involvement for adjustment to illness - Resume home Darolutamide when tolerating PO (if Dr. Valencia recommends this, updated 02/16) - Continue home Lexapro 20mg PO QD - Continue melatonin 4.5mg PO qHS - Moderate risk for DVT: heparin ppx Assessment & Plan (02/17/2025 2:50 PM EDT): Initially diagnosed in 2006. S/p radical prostatectomy (2005). Found to have rib met in 2022 s/p RT apr 2023. Currently treated w/ Lupron Q6 months and Darolutamide QD (however pt admits to not taking Darolutamide for several months PLATE PUT IN [employer] given poor appetite/poor PO intake and was told he is supposed to take this with food). Course c/b worsening #cancer pain, MRI entire spine 02/15 shows bony mets T5-9 w/ minimally increased paraspinal component w/ epidural disease, but no cord compression. Restaging CTCAP 02/15 w/o evidence of metastatic disease in chest or abd/pelvis. Primary Onc: Dr. Vira Valencia ([facility])/Local Oncologst: Dr. Maynard ([facility]); Outpatient Rad Onc: Dr Zhang - Onc plan per primary onc team updated 02/16 - Resume home Darolutamide when tolerating PO (if Dr. Valencia recommends this) - Continue home Lexapro 20mg PO QD - Continue melatonin 4.5mg PO qHS - Moderate risk for DVT: heparin ppx Assessment & Plan (02/16/2025 4:45 PM EDT): Initially diagnosed in 2005. S/p radical prostatectomy (2005). Found to have rib met in 2022 s/p RT apr 2023. Currently treated w/ Lupron Q6 months and Darolutamide QD (however pt admits to not taking Darolutamide for several months PLATE PUT IN [employer] given poor appetite/poor PO intake and was told he is supposed to take this with food). Course c/b worsening #cancer pain, MRI entire spine 02/15 shows bony mets T5-9 w/ minimally increased paraspinal component w/ epidural disease, but no cord compression. Restaging CTCAP 02/15 w/o evidence of metastatic disease in chest or abd/pelvis. Primary Onc: Dr. Vira Valencia ([facility])/Local Oncologst: Dr. Maynard ([facility]); Outpatient Rad Onc: Dr Zhang - Onc plan per primary onc team updated 02/16 - Resume home Darolutamide when tolerating PO (if Dr. Valencia recs) - Continue home Lexapro 20mg PO QD - Continue melatonin 4.5mg PO qHS - Moderate risk for DVT: heparin ppx Assessment & Plan (02/15/2025 12:49 PM EDT): Initially diagnosed in 2005. S/p radical prostatectomy (2005). Found to have rib met in 2022 s/p RT apr 2023. Currently treated w/ Lupron Q6 months and darolutamide QD. Course c/b worsening #cancer pain, MRI entire spine 02/15 shows Bony mets T5-9 w/ minimally increased paraspinal component w/ epidural disease, but no cord compression. Restaging imaging 02/15 w/o evidence of a/p metastatic disease. CT chest pending at this time. Primary Onc: Dr. Viar Valencia/ Local Oncologst: Dr. Maynard ([facility]) - Onc plan per primary onc team updated 02/14 - F/u CT chest - Continue home Lexapro 20mg PO QD - Moderate risk for DVT: Heparin ppx - Resume home darolutamide when tolerating PO - Code status: discussed switching to DNR/DNI at OSH, but remains full code currently - Continue melatonin 4.5mg PO QHS Assessment & Plan (02/14/2025 3:29 PM EDT): Initially diagnosed in 2005. S/p radical prostatectomy (2005). Found to have rib met in 2022 s/p RT apr 2023. Course c/b worsening #cancer pain, MRI T spine 01/31 with lytic lesion at R paraspinal region at T7 causing destruction of R 7th-9th ribs, T7-8 transverse processes, new osseous lesions T6, T5, T9 and epidural thickening and enhancement at T7-8 w/o LMD enhancement or cord compression. On darolutamide at home. Primary Onc: Dr. Vira Valencia/ Local Oncologst: Dr. Maynard ([facility]) - Onc plan per primary onc team, aware of admission - F/u restaging imaging 02/14 - Continue home lexapro - Moderate risk for DVT: Lovenox ppx - Resume home darolutamide when tolerating PO - Code status: discussed switching to DNR/DNI at OSH, but remains full code at this time Assessment & Plan (02/08/2025 10:32 AM EDT): IMPRESSION: This is a 69-year-old man with the following diagnosis: Prostate adenocarcinoma, stage IV, skeletal mets 2005: Initial diagnosis of prostate cancer, Hallieford score 7, s/p radical prostatectomy Subsequently received salvage radiation therapy and ADT Patient has history of skeletal metastatic disease with destruction of the ribs for which he received palliative radiation therapy 01/2024: Developed recurrence/progression of his skeletal metastatic disease with spine involvement Recurrent significant weight loss Worsening abdominal and lower back pain secondary to cancer progression DISCUSSION: I discussed overall impression, natural history of the disease, stage of the disease, prognosis and further management in this regard. Patient unfortunately has stage IV malignancy which is incurable and all the treatment options are palliative in nature. On his most recent recurrence/progression of his skeletal metastatic disease with spine involvement, he was recommended to start androgen deprivation therapy, darolutamide and Taxotere chemotherapy. He was seen by neurosurgery and no intervention was recommended at this time. PSMA PET scan and MRI of the T-spine did not show any additional disease. He completed planned 6 cycles of Taxotere chemotherapy without significant toxicity. Intermittent diarrhea and constipation -continue current bowel regimen. 08/2024: Restaging PET scan was negative. I reassured him about this. He is weight loss and pain both resolved. Patient unfortunately developed worsening back pain and has undergone multiple imaging studies confirming progression of his spinal disease. He has been taking increasing amount of narcotics without adequate pain control. I have reached out to the [place] team. Patient is sent to the ER for pain management, palliative care consultation and hydration. RECOMMENDATIONS: Patient is sent to the ER and I have called and discussed the case with the triage nurse Patient needs hospitalization for Pain management and IV hydration I would recommend palliative care consultation and radiation oncology consultation Will discuss [place] team to see if patient needs to be transferred to [facility] for further management in this regard Thank you very much for allowing to participate in this patient's care Assessment & Plan (12/15/2024 1:05 PM EDT): IMPRESSION: This is a 69-year-old man with the following diagnosis: Prostate adenocarcinoma, stage IV, skeletal mets 2005: Initial diagnosis of prostate cancer, Hallieford score 7, s/p radical prostatectomy Subsequently received salvage radiation therapy and ADT Patient has history of skeletal metastatic disease with destruction of the ribs for which he received palliative radiation therapy 01/2024: Developed recurrence/progression of his skeletal metastatic disease with spine involvement Recurrent significant weight loss Worsening abdominal and lower back pain of unclear etiology DISCUSSION: I discussed overall impression, natural history of the disease, stage of the disease, prognosis and further management in this regard. Patient unfortunately has stage IV malignancy which is incurable and all the treatment options are palliative in nature. On his most recent recurrence/progression of his skeletal metastatic disease with spine involvement, he was recommended to start androgen deprivation therapy, darolutamide and Taxotere chemotherapy. He was seen by neurosurgery and no intervention was recommended at this time. PSMA PET scan and MRI of the T-spine did not show any additional disease. He completed planned 6 cycles of Taxotere chemotherapy without significant toxicity. Intermittent diarrhea and constipation -continue current bowel regimen. 08/2024: Restaging PET scan was negative. I reassured him about this. He is weight loss and pain both resolved. He has not developed recurrence of significant weight loss as well as worsening epigastric and lower back pain. He had a CT scan of the abdomen and pelvis done couple of months ago which was unremarkable. He continues to have significant pain issues at this time and I have recommended to further evaluate this with MRI of the lumbar and T-spine. He is also scheduled to undergo restaging CT scans and bone scan. His PSA continues to be low and stable. ? Toxicity from current therapy. RECOMMENDATIONS: I recommended to hold Nubeqa at this time MRI of the T and L-spine CT scan of the chest abdomen pelvis and bone scan Continue oxycodone 1 to 2 tablets every 6-8 hours as needed for pain control He is already on PPI 40 mg p.o. daily and I advised him to take Mylanta as well He will maintain close follow-up with his [facility] team Return for follow-up in after the above-mentioned Thank you very much for allowing to participate in this patient's care Assessment & Plan (07/20/2024 10:02 AM EST): IMPRESSION: This is a 69-year-old man with the following diagnosis: Prostate adenocarcinoma, stage IV, skeletal mets 2005: Initial diagnosis of prostate cancer, Hallieford score 7, s/p radical prostatectomy Subsequently received salvage radiation therapy and ADT Patient has history of skeletal metastatic disease with destruction of the ribs for which he received palliative radiation therapy 01/2024: Developed recurrence/progression of his skeletal metastatic disease with spine involvement Weight loss - improved Pain management - adequate DISCUSSION: I discussed overall impression, natural history of the disease, stage of the disease, prognosis and further management in this regard. Patient unfortunately has stage IV malignancy which is incurable and all the treatment options are palliative in nature. On his most recent recurrence/progression of his skeletal metastatic disease with spine involvement, he was recommended to start androgen deprivation therapy, darolutamide and Taxotere chemotherapy. I reviewed records from [facility]. He was seen by neurosurgery and no intervention was recommended at this time. PSMA PET scan and MRI of the T-spine did not show any additional disease. He has been tolerating current therapy with some expected but manageable toxicity. Pain management is under reasonable control with the current pain meds. Intermittent diarrhea and constipation -continue current bowel regimen. Weight loss: Improved He has been tolerating current therapy without any significant side effects or complications and will continue as planned. 06/22/2024: Restaging PET scan showed no evidence of residual disease and I reassured him about this. RECOMMENDATIONS: C6D1 of Taxotere/docetaxel chemotherapy tomorrow 07/21/24 Continue Lupron every 6 months injection -gets it through urology -next injection is due in 08/2024 Continue darolutamide/Nubeqa 600 mg p.o. twice a day His PSA has not been significantly elevated so he will undergo restaging scans every 3 months Next restaging scans due in Last week of August 2024 He will maintain close follow-up with his [facility] team Return for follow-up in 6 weeks with labs Thank you very much for allowing to participate in this patient's care Assessment & Plan (06/30/2024 12:52 PM EDT): IMPRESSION: This is a 68-year-old man with the following diagnosis: Prostate adenocarcinoma, stage IV, skeletal mets 2005: Initial diagnosis of prostate cancer, Darvin score 7, s/p radical prostatectomy Subsequently received salvage radiation therapy and ADT Patient has history of skeletal metastatic disease with destruction of the ribs for which he received palliative radiation therapy 01/2024: Developed recurrence/progression of his skeletal metastatic disease with spine involvement Weight loss - improved Pain management - adequate DISCUSSION: I discussed overall impression, natural history of the disease, stage of the disease, prognosis and further management in this regard. Patient unfortunately has stage IV malignancy which is incurable and all the treatment options are palliative in nature. On his most recent recurrence/progression of his skeletal metastatic disease with spine involvement, he was recommended to start androgen deprivation therapy, darolutamide and Taxotere chemotherapy. I reviewed records from [facility]. He was seen by neurosurgery and no intervention was recommended at this time. PSMA PET scan and MRI of the T-spine did not show any additional disease. He has been tolerating current therapy with some expected but manageable toxicity. Pain management is under reasonable control with the current pain meds. Intermittent diarrhea and constipation -continue current bowel regimen. Weight loss: Improved He has been tolerating current therapy without any significant side effects or complications and will continue as planned. 06/22/2024: Restaging PET scan showed no evidence of residual disease and I reassured him about this. RECOMMENDATIONS: C5D1 of Taxotere/docetaxel chemotherapy tomorrow 05/19/24 Continue Lupron every 6 months injection -gets it through urology -next injection is due in 08/2024 Continue darolutamide/Nubeqa 600 mg p.o. twice a day Continue dexamethasone 4 mg p.o. daily. Advised him to take dexamethasone 4 mg twice a day starting the day before chemotherapy and for 2 days after chemotherapy His PSA has not been significantly elevated so he will undergo restaging scans every 3 months He will maintain close follow-up with his [facility] team Return for follow-up in 3 weeks Thank you very much for allowing to participate in this patient's care Assessment & Plan (05/21/2024 2:06 PM EDT): IMPRESSION: This is a 68-year-old man with the following diagnosis: Prostate adenocarcinoma, stage IV, skeletal mets 2005: Initial diagnosis of prostate cancer, Hallieford score 7, s/p radical prostatectomy Subsequently received salvage radiation therapy and ADT Patient has history of skeletal metastatic disease with destruction of the ribs for which he received palliative radiation therapy 01/2024: Developed recurrence/progression of his skeletal metastatic disease with spine involvement Weight loss Pain management DISCUSSION: I discussed overall impression, natural history of the disease, stage of the disease, prognosis and further management in this regard. Patient unfortunately has stage IV malignancy which is incurable and all the treatment options are palliative in nature. On his most recent recurrence/progression of his skeletal metastatic disease with spine involvement, he was recommended to start androgen deprivation therapy, darolutamide and Taxotere chemotherapy. I reviewed records from [facility]. He was seen by neurosurgery and no intervention was recommended at this time. PSMA PET scan and MRI of the T-spine did not show any additional disease. He has been tolerating current therapy with some expected but manageable toxicity. Pain management is under reasonable control with the current pain meds. Intermittent diarrhea and constipation -continue current bowel regimen. Weight loss: Advised him to increase his nutritional intake with more frequent but smaller meals. RECOMMENDATIONS: C3D1 of Taxotere/docetaxel chemotherapy tomorrow 05/19/24 Continue Lupron every 6 months injection -gets it through urology -next injection is due in 08/2024 Continue darolutamide/Nubeqa 600 mg p.o. twice a day Continue dexamethasone 4 mg p.o. daily. Advised him to take dexamethasone 4 mg twice a day starting the day before chemotherapy and for 2 days after chemotherapy His PSA has not been significantly elevated so he will undergo restaging scans every 3 months He will maintain close follow-up with his [facility] team Return for follow-up in 3 weeks Thank you very much for allowing to participate in this patient's care Assessment & Plan (04/06/2024 11:14 AM EDT): IMPRESSION: This is a 68-year-old man with the following diagnosis: Prostate adenocarcinoma, stage IV, skeletal mets 2005: Initial diagnosis of prostate cancer, Darvin score 7, s/p radical prostatectomy Subsequently received salvage radiation therapy and ADT Patient has history of skeletal metastatic disease with destruction of the ribs for which he received palliative radiation therapy 01/2024: Developed recurrence/progression of his skeletal metastatic disease with spine involvement Pain management DISCUSSION: I discussed overall impression, natural history of the disease, stage of the disease, prognosis and further management in this regard. Patient unfortunately has stage IV malignancy which is incurable and all the treatment options are palliative in nature. On his most recent recurrence/progression of his skeletal metastatic disease with spine involvement, he was recommended to start androgen deprivation therapy, darolutamide and Taxotere chemotherapy. I reviewed records from [facility]. He was seen by neurosurgery and no intervention was recommended at this time. PSMA PET scan and MRI of the T-spine did not show any additional disease. He has been tolerating current therapy without any significant side effects or complications. He is going to start systemic palliative chemotherapy now. He has undergone teaching. I discussed side effects from current therapy. RECOMMENDATIONS: C1D1 of Taxotere/docetaxel chemotherapy tomorrow 04/07/24 Continue Lupron every 6 months injection -gets it through urology -next injection is due in 08/2024 Continue darolutamide/Nubeqa 600 mg p.o. twice a day SContinue dexamethasone 4 mg p.o. daily. Advised him to take dexamethasone 4 mg twice a day starting the day before chemotherapy and for 2 days after chemotherapy His PSA has not been significantly elevated so he will undergo restaging scans every 3 months He will maintain close follow-up with his [facility] team Return for follow-up in 3 weeks Thank you very much for allowing to participate in this patient's care Assessment & Plan (03/16/2024 2:01 PM EDT): IMPRESSION: This is a 68-year-old man with the following diagnosis: Prostate adenocarcinoma, stage IV, skeletal mets 2005: Initial diagnosis of prostate cancer, Darvin score 7, s/p radical prostatectomy Subsequently received salvage radiation therapy and ADT Patient has history of skeletal metastatic disease with myositis of the ribs for which she received palliative radiation therapy He has now recurrence/progression of his skeletal metastatic disease with spine involvement Pain management DISCUSSION: I discussed overall impression, natural history of the disease, stage of the disease, prognosis and further management in this regard. Patient unfortunately has stage IV malignancy which is incurable and all the treatment options are palliative in nature. On his most recent recurrence/progression of his skeletal metastatic disease with spine involvement, I recommended to start androgen deprivation therapy, darolutamide and Taxotere chemotherapy. I reviewed all his records from [facility]. I agree with recommendations by Dr. Nur. I discussed side effects from current therapy especially from chemotherapy. Patient signed the informed consent today. RECOMMENDATIONS: Labs today He received his first ADT injection of Dagerelix on 02/22/2024 He will be due for next ADT injection on 03/21/2024. He can go on Lupron now. He would like to receive this through his urologist office. Continue daughter darolutamide/Nubeqa and the current dose of 600 mg p.o. twice a day Scheduled to start Taxotere chemotherapy 75 mg/m every 3 weeks x 6 cycles. This is in the palliative setting Continue dexamethasone 4 mg p.o. daily Advised him to take dexamethasone 4 mg twice a day starting the day before chemotherapy and for 2 days after chemotherapy Consent was obtained today Patient will undergo chemo teaching Patient will meet with our social media content specialist and clinical laboratory science professor He is scheduled to undergo a PSMA PET scan and an MRI Return for follow-up on C1D1 of chemotherapy Thank you very much for allowing to participate in this patient's care Current Treatment and Therapy Plans DAROLUTAMIDE* Plan Start Date:02/22/2024 Plan Provider:Vira Nur MD Linked Problems Malignant neoplasm of prosta te Treatment Medications Current Day (Day 1 , Cycle 4 - Planned for 04/25/2024) Next Day (Day 1, Cycle 5 - Planned for 05/16/2024) darolutamide (NUBEQA) darolutamide (ANDREY QA) 300 mg tablet darolutamide (NUBEQA) 300 mg tablet DAROLUTAMIDE/DOCETAXEL* Plan Start Date:04/07/2024 Plan Provider:Scott Hooper MBBS Linked Problems Malignant neoplasm of prosta te Treatment Medications Current Day (Day 1 , Cycle 7 - Planned for 08/11/2024) Next Day (Day 1, Cycle 8 - Planned for 09/08/2024) darolutamide (NUBEQA)DOCEtaxel (TAXOTERE) IVPB in 250 mL (Doses >85 mg to 199 mg) darolutamide (NUBEQA) 300 mg tablet darolutamide (NUBEQA) 300 mg tablet ZOLEDRONIC ACID (ZOMETA)* Plan Start Date:05/07/2025 Plan Provider:Scott Hooper MBBS Linked Problems Malignant neoplasm of prosta teProstate cancer metastatic to bone Treatment Medications No medications scheduled. Past Treatment and Therapy Plans Oncology Therapy Plan Plan Name Start Date Discontinue Date Treatment Medications Discontinue Reason Plan Provider Degarelix (Firmagon) Loading Dose and Maintenance Dosing 02/22/2024 02/21/2025 No medications scheduled. g. Patient Preference Vira Nur MD LEUPROLIDE ACETATE 3 MONTH (LUPRON DEPOT 3 MONTH) 04/03/2015 04/09/2017 leuprolide (3 month) (LUPRON DEPOT 3 MONTH) a. Therapy Complete Vira Nur MD Oncology Therapy Plan Supplemental Plan Name Start Date Discontinue Date Treatment Medications Discontinue Reason Plan Provider BLOOD PRODUCT TRANSFUSION 04/27/2024 04/27/2024 No medications scheduled. m. Entered in Kelsie Chaidez CNP FERUMOXYTOL (FERAHEME) 04/27/2024 04/27/2024 No medications scheduled. m. Entered in Kelsie Chaidez CNP Current Radiation Episodes * 3D ARTILLERY OR [employer]AL [employer] OBSERVER: Thoracic spineOverview* First Treatment Date Latest Treatment Date Treatment Site Technique Goal Episode Provider 02/19/2025 02/23/2025 Thoracic spine 3D ARTILLERY OR [employer]AL G[employer] OBSERVER Palliative Ta Jos harris MD * Linked Problems Prostate cancer metastatic t o bone * Episode Note Justin Briceno is a 69 y.o. male from [facility] met prostate Ca (s/p RP/EBRT/ADT in 2005), met progression 2023 s/p darolutamide (off recently), Pal RT T7-T8 spine/paraspinal mass (04/2023, 28/06 @[facility]), w/ acute on chronic thoracic/low back pain with local PD T6-T9. Plan: ReRT 5fx. Treatment Courses* Course C1 02/19/2025 - 02/23/2025 Treatment Period Fraction Dose Fractions Total Dose Plans Planned A1_T4-T10 02/19/2025 - 02/23/2025 400 cGy 5 / 5 2 ,000 cGy Reference Points Delivered A_T4-T10 02/19/2025 - 02/23/2025 2,000 cGy
--- OUTSIDE RECORDS SUMMARY | 2025-05-08 13:46 | XMS_ITS | Patient Health Record ---
Author Organization Wilfred Maynard III, MD Address [address] [facility] [place] [address] Care Team Providers Care Senior Investment Analyst Name Role Phone PREETI HDEZ Primary Care Provider UnavailWilfred Araujo Unavailable [phone] Allergies Allergen (clinical drug ingredient) Drug/Non Drug Allergy documented on EMR Reaction Allergy Type Onset Date Status No Known Drug Allergy Unknown Drug Allergy Active Results Component Value Reference Range Notes Urine Culture Reviewed date:08/23/2024 08:18:58 AM Interpretation: Performing Lab:[facility], [address] [place] [phone] Notes/Report: O:PROMIR Proteus mirabilis Urine Culture Quant Urine Culture 10,000 to 50,000 cfu/mL Ampicillin <=2 Cefazolin <=4 Ceftriaxone <=0.25 Ciprofloxacin <=0.25 Gentamicin <=1 Nitrofurantoin 128 Trimethoprim/Sulfamethoxazole <=20 Urinalysis and Microscopic Reviewed date:08/23/2024 08:18:58 AM Interpretation: Performing Lab:[facility], [address] [place] [id number] Notes/Report: Color Urine Yellow Appearance Urine Clear PH 6.0 5.0-9.0 Glucose Urine UA Negative Negative mg/dL Urine Blood Negative Negative Specific [place] - Urine 1.015 1.005-1.025 Urine Protein Negative [...] Status W/U Status Risk Notes Problem Overweight (436271365) Overweight (E66.3) Active confirmed His body mass index is slightly over 25. He has lost weight recently. IRs and to maintain his weight at this level to a healthy nutritious diet. Problem 91457490 Hyperglycemia (R73.9) Active confirmed Most recent glucose is 116. This will be followed carefully. A hemoglobin A1c will be ordered. Problem 316317812 Prostate cancer (C61) Active confirmed He recently had CT scans of the chest and abdomen and this morning had an MRI. The results are at [facility] and not available to me but will be requested. He is currently being restaged due to his weight loss. Problem Anemia (930619064) Anemia, unspecified (D64.9) Active confirmed His hemoglobin and hematocrit are now in the normal range and this problem has resolved. Problem Vitamin D deficiency (00128666) Vitamin D deficiency, unspecified (E55.9) Active confirmed He was continued on vitamin D. He is known to have osteopenia. Problem 283239046 Skin cancer, basal cell (C44.91) Active confirmed There is no sign of any new skin cancer. Problem 83216557 Incontinence (R32) Active confirmed He continues to have intermittent incontinence of urine. He has adapted to this and is unimpaired and daily living. Problem 920602883 Osteopenia (M85.80) Active confirmed He will continue on his current regimen. He will be followed for osteoporosis. He is at risk due to a low testosterone. I recommended 500 mg of calcium twice a day with vitamin D. Problem 923129491 Benign prostatic hypertrophy (N40.0) Active confirmed He rises from sleep once or twice a night to urinate. He is occasionally incontinent. We discussed lifestyle modifications way to reduce nocturia. Problem 90808098 Reactive depression (F32.9) Active confirmed He will [...] medical oncology and prostate cancer management. Problem 745573169 Weight loss, unintentional (R63.4) Active confirmed He [...] Provider Diagnosis Wilfred Maynard III, MD [address] [place] [address] [place] [address] 06/02/2024 Wilfred Maynard Overweight E66.3 ; Prostate cancer C61 ; UTI symptoms R39.9 ; Incontinence R32 ; Osteopenia M85.80 ; Skin cancer, basal cell C44.91 and Benign prostatic hypertrophy N40.0 Wilfred Maynard III, MD [address] [place] [address] [place] [address] 09/04/2024 Wilfred Maynard Overweight E66.3 ; Prostate cancer C61 ; Weight loss, unintentional R63.4 ; Incontinence R32 and Anemia, unspecified D64.9 Wilfred Maynard III, MD [address] [place] [address] [place] [address] 01/02/2025 Wilfred Maynard Prostate cancer C61 ; Incontinence R32 ; Osteopenia M85.80 ; Benign prostatic hypertrophy N40.0 ; Reactive depression F32.9 and Weight loss, unintentional R63.4 Wilfred Maynard III, MD [address] [place] [address] [place] [address] 09/04/2024 Wilfred Maynard III, MD [address] [place] [address] [place] [address] 02/06/2025 Wilfred Maynard III, MD [address] [place] [address] [place] [address] 02/21/2025 Wilfred Maynard Assessments Encounter Date Diagnosis [...] is being treated by medical oncology at [facility]. His review of symptoms and tolerating [...] is being treated by medical oncology at [facility]. His review of symptoms and tolerating his treatment well. We have requested the records. 01/02/2025 Prostate cancer (ICD-10 - C61) He recently had CT scans of the chest and abdomen and this morning had an MRI. The results are at [facility] and not available to me but [...] Details Provider Name:Wilfred Maynard, 07/05/2025 09:30:00 AM, [address] [place] [address] DR, [place] [address], [place], [address], Insurance Providers Payer Name Payer Address Payer Phone Subscriber Number Group Number Insured Name Patient Relationship to Insured Coverage Start Date Coverage End Date MEDICARE NGS [address] [place] [address] [id number] Justin Briceno Self - patient is the insured [place] [address] [place] [id number] Justin Briceno Self - patient is the insured Medical (General) History Medical History History ICD Code basal cell cancer, chest sebaceous cysts stage IV adenocarcinoma prostate [place] 7 (4+3 ) GERD depression hyperlipidemia osterarthritis left knee 2018 Surgical History Surgery Date(Month/Year) No history Prostate removal surgery 18 years ago radical prostatectomy 2008 biopsy of prostate 2005 Hospitalization History Reason Date(Month/Year) No history Shortness of breath 04/2020 Shortness of breath 01/2020
--- OUTSIDE RECORDS SUMMARY | 2025-05-08 13:47 | XMS_ITS | Encounter Summary ---
Author Organization [facility] Address [address] [facility] [address] [place] [address] Phone Care Team Providers Care Auth Specialist Name Role Phone Wilfred Maynard MD Unavailable [phone] Vira Nur MD Unavailable [phone] Gadiel Tripp Unavailable [phone] Wilfred Maynard MD Unavailable [phone] Leslie Coello RN Unavailable [email or web address] Scott HooperBS Unavailable [phone] Gadiel Tripp Primary Care Provider + Encounter Details Date Type Department Care Team (Late st Contact Info) Description 02/14/2025 Procedure Pass [facility] [address] [place] [address] Social History Tobacco Use Types Packs/Day Years Used Date Smoking Tobacco: Never Smokeless Tobacco: Never Alcohol Use Standard Drinks/Week Comments Not Currently 0 (1 standard drink = 0.6 oz pur e alcohol) Home Health Assessment: Transportation Answer Date Recorded Lack of Transportation (Medical) No 01/08/2025 Lack of Transportation (Non-Medical) No 01/08/2025 Patient Unable or Declines to Respond No 01/08/2025 Child or Family Care Answer Date Record [...] Info) Description 05/28/2025 3:20 PM EDT Nutrition [facility] at [address] [address] Scott Hooper [address] [phone] [email or web address] 05/28/2025 3:40 PM EDT Office Visit [facility] at [address] [address] Scott Hooper [address] [address] [email or web address] documented as of this encounter Visit Diagnoses Not on filedocumented in this encounter Care Teams Auth Specialist Relationship Specialty Start Date End Date Gadiel Tripp PA [address] [place] [id number] PCP - General Physician Fruit Packer Face And Fill 12/19/24 Wilfred Maynard MD [address] [place] [address] Referring Physician Internal Medicine 11/19/15 Vira Nur MD [address] [place] [phone] [email or web address] Medical [email or web address] 04/16/23 Gadiel Tripp PA [address] [place] [address] Physician Fruit Packer Face And Fill 04/16/23 Wilfred Maynard MD [address] [place] [address] Referring Physician Medical Oncology 04/16/23 Leslie Coello RN [address] [place] [id number] [email or web address] Primary Infusion Nurse 02/22/24 Scott Hooper MBBS [address] [place] [address] [email or web address] 03/01/24 documented as of this encounter Additional Source Comments The information contained in this document represents components of the legal health record. It is not the complete legal health record.[facility]
--- OUTSIDE RECORDS SUMMARY | 2025-05-08 13:47 | XMS_ITS | Encounter Summary ---
Author Organization [facility] Address [address] [place] [address] Phone Care Team Providers Care Aircraft General Repair Mechanic Name Role Phone Wilfred Maynard MD Unavailable [phone] Vira Nur MD Unavailable [phone] Gadiel Tripp Unavailable [phone] Wilfred Maynard MD Unavailable [phone] Leslie Coello RN Unavailable [email or web address] Scott HooperBS Unavailable [phone] Gadiel Tripp Primary Care Provider + Encounter Details Date Type Department Care Team (Late st Contact Info) Description 02/23/2025 Home Health Resumption of Care Planning [facility] [address] [place] [address] Lucy Horta RN [address] [place], [place] [id number] [email or web address] Social History Tobacco Use Types Packs/Day Years [...] Info) Description 05/28/2025 3:20 PM EDT Nutrition [facility] at [address] [address] Scott Hooper MBBS [address] [place] [phone] [email or web address] 05/28/2025 3:40 PM EDT Office Visit [facility] at [address] [address] Scott Hooper MBBS [address] [place] [address] [email or web address] documented as of this encounter Visit Diagnoses Not on filedocumented in this encounter Care Teams Aircraft General Repair Mechanic Relationship Specialty Start Date End Date Gadiel Tripp PA [address] [place] [id number] PCP - General Physician Technical Service Rep 12/19/24 Wilfred Maynard MD [address] [place] [address] Referring Physician Internal Medicine 11/19/15 Vira Nur MD [address] [place] [address] [email or web address] 04/16/23 Gadiel Tripp PA [address] [place] [address] Physician Technical Service Rep 04/16/23 Wilfred Maynard MD [address] [place] [address] Referring Physician Medical Oncology 04/16/23 Leslie Coello RN [address] [place], [place] [phone] [email or web address] Primary Infusion Nurse 02/22/24 Scott Hooper MBBS [address] [place] [phone] [email or web address] 03/01/24 documented as of this encounter Additional Source Comments The information contained in this document represents components of the legal health record. It is not the complete legal health record.[facility]
--- OUTSIDE RECORDS SUMMARY | 2025-05-08 13:47 | XMS_ITS | Encounter Summary ---
Author Organization [facility] Address [address] [place] [address] Phone Care Team Providers Care Aircraft Painter Apprentice Name Role Phone Wilfred Maynard MD Unavailable +[phone] Vira Nur MD Unavailable [phone] Gadiel Tripp Unavailable +[phone] Wilfred Maynard MD Unavailable +[phone] Leslie Coello RN Unavailable Leslie [email or web address] Scott HooperBS Unavailable +[phone] Gadiel Tripp Primary Care Provider + Encounter Details Date Type Department Care Team (Late st Contact Info) Description 02/14/2025 Procedure Pass [facility] [address] [place] [address] Social History Tobacco Use Types Packs/Day Years [...] Info) Description 05/28/2025 3:20 PM EDT Nutrition [facility] at [address] [address] Scott Hooper [address] [address] [email or web address] 05/28/2025 3:40 PM EDT Office Visit [facility] at [address] [address] Scott Hooper [address] [address] [email or web address] documented as of this encounter Visit Diagnoses Not on filedocumented in this encounter Care Teams Aircraft Painter Apprentice Relationship Specialty Start Date End Date Gadiel Tripp PA [address] [place] [address] PCP - General Physician Ladle Liner Helper 12/19/24 Wilfred Maynard MD [address] [place] [address] Referring Physician Internal Medicine 11/19/15 Vira Nur MD [address] [place] [address] [email or web address] Medical Oncology 04/16/23 Gadiel Tripp PA [address] [place] [address] Physician Ladle Liner Helper 04/16/23 Wilfred Maynard MD [address] [place] [address] Referring Physician Medical Oncology 04/16/23 Leslie Coello RN [address] [place] [address] [email or web address] Primary Infusion Nurse 02/22/24 Scott Hooper MBBS [address] [place] [address] [email or web address] 03/01/24 documented as of this encounter Additional Source Comments The information contained in this document represents components of the legal health record. It is not the complete legal health record.[facility]
--- OUTSIDE RECORDS SUMMARY | 2025-05-08 13:47 | XMS_ITS | Encounter Summary ---
Author Organization [facility] Address [address] [place] [address] Phone Care Team Providers Care Tank Wagon Operator Name Role Phone Wilfred Maynard MD Unavailable [phone] Vira Nur MD Unavailable [phone] Gadiel Tripp Unavailable [phone] Wilfred Maynard MD Unavailable +[phone] Leslie Coello RN Unavailable Leslie [email or web address] Scott HooperBS Unavailable +[phone] Gadiel Tripp Primary Care Provider + Encounter Details Date Type Department Care Team (Late st Contact Info) Description 02/14/2025 Procedure Pass [facility] [address] [place] [address] Social History Tobacco Use Types Packs/Day Years [...] Info) Description 05/28/2025 3:20 PM EDT Nutrition [facility] at [address] [address] Scott Hooper [address] [address] [email or web address] 05/28/2025 3:40 PM EDT Office Visit [facility] at [address] [address] Scott Hooper [address] [address] [email or web address] documented as of this encounter Visit Diagnoses Not on filedocumented in this encounter Care Teams Tank Wagon Operator Relationship Specialty Start Date End Date Gadiel Tripp PA [address] [place] [address] PCP - General Physician Valve Liner Rubber 12/19/24 Wilfred Maynard MD [address] [place] [address] Referring Physician Internal Medicine 11/19/15 Vira Nur MD [address] [place] [address] [email or web address] Medical Oncology 04/16/23 Gadiel Tripp PA [address] [place] [address] Physician Valve Liner Rubber 04/16/23 Wilfred Maynard MD [address] [place] [address] Referring Physician Medical Oncology 04/16/23 Leslie Coello RN [address] [place] [address] [email or web address] Primary Infusion Nurse 02/22/24 Scott Hooper MBBS [address] [place] [address] [email or web address] [email or web address] Medical Oncology 03/01/24 documented as of this encounter Additional Source Comments The information contained in this document represents components of the legal health record. It is not the complete legal health record.[facility]
--- OUTSIDE RECORDS SUMMARY | 2025-05-08 13:47 | XMS_ITS | Encounter Summary ---
Author Organization [facility] Address [address] [address] [place] [address] Phone Care Team Providers Care Patrol Sergeant Name Role Phone Wilfred Maynard MD Unavailable +[phone] Vira Nur MD Unavailable [phone] Gadiel Tripp Unavailable [phone] Wilfred Maynard MD Unavailable [phone] Leslie Coello RN Unavailable Leslie Krause@[email or web address] Scott HooperBS Unavailable +[phone] Gaidel Tripp Primary Care Provider + Encounter Details Date Type Department Care Team (Late st Contact Info) Description 02/14/2025 Procedure Pass [facility] 75 [place] [address] Social History Tobacco Use Types Packs/Day Years [...] PM EDT Nutrition [facility] at [address] [address] Scott Hooper [address] [address] [email or web address] 05/28/2025 3:40 PM EDT Office Visit [facility] at [address] [address] Scott Hooper [address] [address] [email or web address] documented as of this encounter Visit Diagnoses Not on filedocumented in this encounter Care Teams Patrol Sergeant Relationship Specialty Start Date End Date Gadiel Tripp PA [address] [place] [address] PCP - General Physician Cementer Oil Well 12/19/24 Wilfred Maynard MD [address] [place] [address] Referring Physician Internal Medicine 11/19/15 Vira Nur MD [address] [place] [address] [email or web address] Medical Oncology 04/16/23 Gadiel Tripp PA [address] [place] [address] Physician Cementer Oil Well 04/16/23 Wilfred Maynard MD [address] [place] [address] Referring Physician Medical Oncology 04/16/23 Leslie Coello RN [address] [place] [address] [email or web address] Primary Infusion Nurse 02/22/24 Scott Hooper MBBS [address] [place] [address] [email or web address] Medical [email or web address] 03/01/24 documented as of this encounter Additional Source Comments The information contained in this document represents components of the legal health record. It is not the complete legal health record.[facility]
--- OUTSIDE RECORDS SUMMARY | 2025-05-08 13:47 | XMS_ITS | Encounter Summary ---
Author Organization [facility] Address [address] [place] [address] Phone Care Team Providers Care Minilab Operator Name Role Phone Wilfred Maynard MD Unavailable [phone] Vira Nur MD Unavailable [phone] Gadiel Tripp Unavailable [phone] Wilfred Maynard MD Unavailable [phone] Leslie Coello RN Unavailable Leslie Krause@[email or web address] Scott HooperBS Unavailable [phone] Gadiel Tripp Primary Care Provider + Encounter Details Date Type Department Care Team (Late st Contact Info) Description 02/14/2025 Procedure Pass [facility] [address] [place] [address] Social History Tobacco Use Types Packs/Day Years [...] Info) Description 05/28/2025 3:20 PM EDT Nutrition [facility] at [address] [address] Scott Hooper [address] [address] [email or web address] 05/28/2025 3:40 PM EDT Office Visit [facility] at [address] [address] Scott Hooper [address] [address] [email or web address] documented as of this encounter Visit Diagnoses Not on filedocumented in this encounter Care Teams Minilab Operator Relationship Specialty Start Date End Date Gadiel Tripp PA [address] [place] [address] PCP - General Physician Floral Manager 12/19/24 Wilfred Maynard MD [address] [place] [address] Referring Physician Internal Medicine 11/19/15 Vira Nur MD [address] [place] [address] [email or web address] Medical Oncology 04/16/23 Gadiel Tripp PA [address] [place] [address] Physician Floral Manager 04/16/23 Wilfred Maynard MD [address] [place] [address] Referring Physician Medical Oncology 04/16/23 Leslie Coello RN [address] [place] [address] [email or web address] Primary Infusion Nurse 02/22/24 Scott Hooper MBBS [address] [place] [address] [email or web address] Medical Oncology 03/01/24 documented as of this encounter Additional Source Comments The information contained in this document represents components of the legal health record. It is not the complete legal health record.[facility]
--- OUTSIDE RECORDS SUMMARY | 2025-05-08 13:48 | XMS_ITS | Encounter Summary ---
Author Organization [facility] Address [address] [place] [address] Phone Care Team Providers Care Partridge Farmer Name Role Phone Wilfred Maynard MD Unavailable [phone] Vira Nur MD Unavailable [phone] Gadiel Tripp Unavailable [phone] Wilfred Maynard MD Unavailable [phone] Leslie Coello RN Unavailable Leslie Krause@[email or web address] Scott Hooper MBBS Unavailable +[phone] Gadiel Tripp Primary Care Provider + Reason for Visit * Reason Onset Date Comments Medication Refill 05/08/2025 Encounter Details Date Type Department Care Team (Late st Contact Info) Description 05/08/2025 Refill [facility] at [address] [address] Kati Weiner RN Medication Refill Social History Tobacco Use Types Packs/Day Years [...] as food, clothing, or medical care? No 04/18/2025 In the past 12 months have y ou been in a relationship with a person who hurts, threatens, or tries to control you? No 04/18/2025 Are you denied basic needs s uch as food, clothing, or medical care? No 04/18/2025 In the past 12 months have y ou been in a relationship with a person who hurts, threatens, or tries to control you? No 04/18/2025 Sex and Gender Information Value Date Recorded Sex Assigned at Male 04/16/2023 5:28 PM EDT Legal Sex Male 7:12 PM EST Gender Identity Male 04/16/2023 5:28 PM EDT Sexual Orientation Straight 04/16/2023 5: 28 PM EDT documented as of this encounter Progress Notes * Kati Weiner RN - 05/08/2025 11:22 AM EDT PDMP Fentanyl last filled 04-18-25 #5 15 day supply Oxycodone last filled 04-18-25 #84 14 day supply documented in this encounter Plan of Treatment Upcoming Encounters Date Type Department Care Team (Late st Contact Info) Description 05/28/2025 3:20 PM EDT [facility] at [address] [address] Scott Hooper MBBS [address] [place] [address] [email or web address] 05/28/2025 3:40 PM EDT Office Visit [facility] at [address] [address] Scott Hooper MBBS [address] [place] [address] [email or web address] documented as of this encounter Visit Diagnoses Not on filedocumented in this encounter Care Teams Partridge Farmer Relationship Specialty Start Date End Date Gadiel Tripp PA [address] [place] [address] PCP - General Physician Equipment Man 12/19/24 Wilfred Maynard MD [address] [place] [address] Referring Physician Internal Medicine 11/19/15 Vira Nur MD [address] [place] [address] [email or web address] Medical Oncology 04/16/23 Gadiel Tripp PA [address] [place] [address] Physician Equipment Man 04/16/23 Wilfred Maynard MD [address] [place] [address] Referring Physician Medical Oncology 04/16/23 Leslie Coello RN [address] [place] [address] [email or web address] Primary Infusion Nurse 02/22/24 Scott Hooper MBBS [address] [place] [address] [email or web address] 03/01/24 documented as of this encounter Additional Source Comments The information contained in this document represents components of the legal health record. It is not the complete legal health record.[facility]
--- OUTSIDE RECORDS SUMMARY | 2025-05-08 13:48 | XMS_ITS | Encounter Summary ---
Author Organization [facility] Address [address] [place] [address] [place] [address] Phone Care Team Providers Care Shuttle Inspector Name Role Phone Wilfred Maynard MD Unavailable [phone] Vira Nur MD Unavailable [phone] Gadiel Tripp Unavailable [phone] Wilfred Maynard MD Unavailable [phone] Leslie Coello RN Unavailable Leslie Krause@[email or web address] Scott HooperBS Unavailable [phone] Gadiel Tripp Primary Care Provider + Encounter Details Date Type Department Care Team (Late st Contact Info) Description 04/19/2025 Orders Only [facility] at [address] [phone] Delmi Mays [address] [place], [place] [phone] [email or web address] 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) Social History Tobacco Use Types Packs/Day Years [...] Info) Description 05/28/2025 3:20 PM EDT Nutrition [facility] at [address] [address] Scott Hooper [address] [address] [email or web address] 05/28/2025 3:40 PM EDT Office Visit [facility] at [address] [address] Scott Hooper [address] [address] [email or web address] documented as of this encounter Visit Diagnoses Diagnosis Prostate cancer metastatic to bone- Primary documented in this encounter Care Teams Shuttle Inspector Relationship Specialty Start Date End Date Gadiel Tripp PA [address] [place] [address] PCP - General Physician Explosive Operator Grenade 12/19/24 Wilfred Maynard MD [address] [place] [address] Referring Physician Internal Medicine 11/19/15 Vira Nur MD [address] [place] [address] [email or web address] Medical Oncology 04/16/23 Gadiel Tripp PA [address] [place] [address] Physician Explosive Operator Grenade 04/16/23 Wilfred Maynard MD [address] [place] [address] Referring Physician Medical Oncology 04/16/23 Leslie Coello, RN [address] [place] [address] [email or web address] Primary Infusion Nurse 02/22/24 Scott Hooper MBBS [address] [place] [address] [email or web address] Medical Oncology 03/01/24 documented as of this encounter Additional Source Comments The information contained in this document represents components of the legal health record. It is not the complete legal health record.[facility]
--- OUTSIDE RECORDS SUMMARY | 2025-05-08 13:48 | XMS_ITS | Encounter Summary ---
Author Organization [facility] Address [address] [place] [address] [address] [place] [address] Phone Care Team Providers Care Dumper Bulk System Name Role Phone Chirag River MD Primary Care Provider [phone] Wilfred Maynard MD Unavailable +[phone] Vira Nur MD Unavailable [phone] Gadiel Tripp Unavailable [phone] Wilfred Maynard MD Unavailable [phone] Leslie Coello RN Unavailable Leslie Krause@[email or web address] Scott Hooper Unavailable +[phone] Gadiel Tripp Primary Care Provider + Encounter Details Date Type Department Care Team (Late st Contact Info) Description 12/12/2024 Procedure Pass [facility] Ct Scan - [address] [id number] Social History Tobacco Use Types Packs/Day Years Used Date Smoking Tobacco: Never Smokeless Tobacco: Never Alcohol Use Standard Drinks/Week Comments Not Currently 0 (1 standard drink = 0.6 oz pur e alcohol) Child or Family Care Answer Date Record [...] before we got money to buy more. Sometimes True 023 Within the past 6 months the food we bought just didn't last and we didn't have enough money to get more. Sometimes True 04/30 Residential Stability Answer Date Recor ded What is your housing situation today? I choose n ot to answer 05/11/2023 How many times have you move d in the past 12 months? Zero (I did not move) 05/11/2023 Paying for Meds Answer Date Recorded Do you have trouble paying for medicines? No 05/11/2023 Paying Utility Bills Answer Date Record ed Do you have trouble paying your heating or elect ricity bill? Yes 05/11/2023 Transportation Answer Date Recorded Has the lack of transportati on kept you from medical appointments or from getting medications? No 05/11/2023 Digital Access Answer Date Recorded No 01/25/2023 No 01/25/2023 Reliable internet access at home? Not on file 01/25/2023 Device with a working camera? Not on file Intimate Partner Violence Answer Date R ecorded Are you denied basic needs s uch as food, clothing, or medical care? No 10/06/2024 In the past 12 months have y ou been in a relationship with a person who hurts, threatens, or tries to control you? No 10/06/2024 Are you denied basic needs s uch as food, clothing, or medical care? No 10/06/2024 In the past 12 months have y ou been in a relationship with a person who hurts, threatens, or tries to control you? No 10/06/2024 Sex and Gender Information Value Date Recorded Sex Assigned at Male 04/16/2023 5:28 PM EDT Legal Sex Male 7:12 PM EST Gender Identity Male 04/16/2023 5:28 PM EDT Sexual Orientation Straight 04/16/2023 5: 28 PM EDT documented as of this encounter Plan of Treatment Upcoming Encounters Date Type Department Care Team (Late st Contact Info) Description 05/28/2025 3:20 PM EDT Nutrition [facility] at [address] [address] Scott Hooper [address] [address] [email or web address] 05/28/2025 3:40 PM EDT Office Visit [facility] at [address] [address] Scott Hooper [address] [address] [email or web address] documented as of this encounter Visit Diagnoses Not on filedocumented in this encounter Care Teams Dumper Bulk System Relationship Specialty Start Date End Date Chirag River MD [address] [place] [address] PCP - General Internal Medicine 06/21/15 12/18/24 Gadiel Tripp PA [address] [place] [address] PCP - General Physician Coal Conveyor Operator 12/19/24 Wilfred Maynard MD [address] [place] [address] Referring Physician Internal Medicine 11/19/15 Vira Nur MD [address] [place] [address] [email or web address] Medical Oncology 04/16/23 Gadiel Tripp PA [address] [place] [address] Physician Coal Conveyor Operator 04/16/23 Wilfred Maynard MD [address] [place] [address] Referring Physician Medical Oncology 04/16/23 Leslie Coello RN [address] [place] [address] [email or web address] Primary Infusion Nurse 02/22/24 Scott Hooper MBBS [address] [place] [address] [email or web address] Medical Oncology 03/01/24 documented as of this encounter Additional Source Comments The information contained in this document represents components of the legal health record. It is not the complete legal health record.[facility]
--- OUTSIDE RECORDS SUMMARY | 2025-05-08 13:48 | XMS_ITS | Encounter Summary ---
Author Organization [facility] Address [address] [place] [address] [address] [place] [address] Phone Care Team Providers Care J2Ee Engineer Name Role Phone Chirag River MD Primary Care Provider [phone] Wilfred Maynard MD Unavailable +[phone] Vira Nur MD Unavailable [phone] Gadiel Tripp Unavailable [phone] Wilfred Maynard MD Unavailable +[phone] Leslie Coello RN Unavailable Leslie [email or web address] Scott Hooper Unavailable [phone] Gadiel Tripp Primary Care Provider + Encounter Details Date Type Department Care Team (Late st Contact Info) Description 10/06/2024 Procedure Pass [facility], Ct Scan - [address] [id number] Social History Tobacco Use Types Packs/Day Years [...] PM EDT documented as of this encounter Functional Status * Calculated C-SSRS Risk Score (Lifetime/Recent) Answer Date of Assessment Author No Risk Indicated 10/06/2024 2:50 PM Tamar Lawton RN * [place] Suicide Severity Rating Scale (Screener/Recent Self-Report) Question Answer Date of Assessment Author 1. Wish to be (Past 1 Month) No 10/06/2024 2:50 PM Judd Moralez RN 2. Non-Specific Active Suicidal Thoughts (Past 1 Month) No 10/06/2024 2:50 PM Judd Moralez RN 6. Suicidal Behavior (Lifetime) No 10/06/2024 2:50 PM Judd Moralez RN documented as of this encounter Plan of Treatment Upcoming Encounters Date Type Department Care Team (Late st Contact Info) Description 05/28/2025 3:20 PM EDT Nutrition [facility] at [address] [address] Scott Hooper MBBS [address] [place] [address] [email or web address] 05/28/2025 3:40 PM EDT Office Visit [facility] at [address] [address] Scott Hooper MBBS [address] [place] [address] [email or web address] documented as of this encounter Visit Diagnoses Not on filedocumented in this encounter Care Teams J2Ee Engineer Relationship Specialty Start Date End Date Chirag River MD [address] [place] [address] [place] [address] PCP - General Internal Medicine 06/21/15 12/18/24 Gadiel Tripp PA [address] [place] [address] PCP - General Physician Biodiesel Engineering Manager 12/19/24 Wilfred Maynard MD [address] [place] [address] Referring Physician Internal Medicine 11/19/15 Vira Nur MD [address] [place] [address] [email or web address] Medical Oncology 04/16/23 Gadiel Tripp PA [address] [place] [address] Physician Biodiesel Engineering Manager 04/16/23 Wilfred Maynard MD [address] [place] [address] Referring Physician Medical Oncology 04/16/23 Leslie Coello, RN [address] [place] [address] [email or web address] Primary Infusion Nurse 02/22/24 Scott Hooper MBBS [address] [place] [address] [email or web address] Medical Oncology 03/01/24 documented as of this encounter Additional Source Comments The information contained in this document represents components of the legal health record. It is not the complete legal health record.[facility]
--- OUTSIDE RECORDS SUMMARY | 2025-05-08 13:48 | XMS_ITS | Encounter Summary ---
Author Organization Formerly [facility] Address [address] [place] [address] Phone Care Team Providers Care Dedicated Regional Driver Name Role Phone Wilfred Maynard MD Unavailable [phone] Vira Nur MD Unavailable [phone] Gadiel Tripp Unavailable [phone] Wilfred Maynard MD Unavailable [phone] Leslie Coello RN Unavailable [email or web address] Scott [email or web address] Unavailable [phone] Gadiel Tripp Primary Care Provider + Encounter Details Date Type Department Care Team (Late st Contact Info) Description 04/18/2025 Procedure Pass [facility], Ct Scan - [facility] [address] [place] [address] Social History Tobacco Use Types Packs/Day Years [...] Date of Assessment Author No Risk Indicated 04/18/2025 10:44 AM EDT Cassi Vieyra, FLAKITO * Gosper Suicide Severity Rating Scale (Screener/Recent Self-Report) Question Answer Date of Assessment Author 1. Wish to be (Past 1 Month) No 025 10:44 AM EDT Cassi Mcduffie, FLAKITO 2. Non-Specific Active Suici sly Thoughts (Past 1 Month) No 04/18/2025 10:44 AM EDT Oumou Mcduffie RN 6. Suicidal Behavior (Lifetime) No 10:44 AM EDT Cassi Mcduffie, RN documented as of this encounter Plan of Treatment Upcoming Encounters Date Type Department Care Team (Late st Contact Info) Description 05/28/2025 3:20 PM EDT Nutrition [facility] at [address] [address] Scott Hooper MBBS [address] [place] [address] [email or web address] 05/28/2025 3:40 PM EDT Office Visit [facility] at [address] [address] Scott Hooper MBBS [address] [place] [address] [email or web address] documented as of this encounter Visit Diagnoses Not on filedocumented in this encounter Care Teams Dedicated Regional Driver Relationship Specialty Start Date End Date Gadiel Tripp PA [address] [place] [address] PCP - General Physician Supervisor [employer] 12/19/24 Wilfred Maynard MD [address] [place] [address] Referring Physician Internal Medicine 11/19/15 Vira Nur MD [address] [place] [address] [email or web address] 04/16/23 Gadiel Tripp PA [address] [place] [address] Physician Supervisor [employer] 04/16/23 Wilfred Maynard MD [address] [place] [address] Referring Physician Medical Oncology 04/16/23 Leslie Coello, RN [address] [place] [address] [email or web address] Primary Infusion Nurse 02/22/24 Scott Hooper MBBS [address] [place] [phone] [email or web address] 03/01/24 documented as of this encounter Additional Source Comments The information contained in this document represents components of the legal health record. It is not the complete legal health record.[facility]
--- OUTSIDE RECORDS SUMMARY | 2025-05-08 13:48 | XMS_ITS | Clinical Summary ---
Author Organization [facility] Address [address] [place] [address] Care Team Providers Care Bleach Boiler Puller Name Role Phone Unavailable Primary Care Provider [...]
--- OUTSIDE RECORDS SUMMARY | 2025-05-08 13:48 | XMS_ITS | Patient Health Record ---
Author Organization [facility] Address [address] [place] [address] Care Team Providers Care Network Systems Administrator Name Role Phone Gadiel Tripp Primary Care Provider Unavailab Wilfred Hyde Unavailable [phone] Allergies No Known Allergies Reason For Referral [...] Problem Status W/U Status Risk Notes Problem 736300651 Encounter for screening for malignant neoplasm of colon (Z12.11) Active confirmed Problem 745171637 History of adenomatous polyp of colon (Z86.010) Active confirmed Problem 56114300 Weight loss (R63.4) Active confirmed Problem 85620013 Anorexia (R63.0) Active confirmed Problem Erosive esophagitis (16223881) Erosive esophagitis (K22.10) Active confirmed Problem Gastroesophageal reflux disease (240029658) GERD (gastroesophag eal reflux disease) (K21.9) Active confirmed Problem [id number] Pre-procedural examination (Z01.818) Active confirmed Problem 11613504 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 Plan Of Treatment Future Test Test Name Order Date UPPER GI ENDOSCOPY 07/27/2012 COLONOSCOPY 07/27/2012 COLONOSCOPY 01/20/2019 Insurance Providers Payer Name Payer Address Payer Phone Subscriber Number Group Number Insured Name Patient Relationship to Insured Coverage Start Date Coverage End Date MEDICARE OF [place] [address] [place] [address] [id number] MORGAN WEBER Self - patient is the insured MEDICAID OF [facility] [address] [place] [address] [id number] MORGAN WEBER Self - patient is the insured Medical (General) History Medical History History ICD Code Hx of tubular adenoma & hyperplastic hannah yps removed in 04/2007 GERD-EGD in 1998 with a HH-no [place]'s 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 for polyps [...]
--- OUTSIDE RECORDS SUMMARY | 2025-05-08 13:48 | XMS_ITS | Encounter Summary ---
Author Organization [facility] Address [address] [place] [address] [address] [place] [address] Phone Care Team Providers Care Armhole Sewer Name Role Phone Chirag River MD Primary Care Provider [phone] Wilfred Maynard MD Unavailable [phone] Vira Nur MD Unavailable [phone] Gadiel Tripp Unavailable [phone] Wilfred Maynard MD Unavailable [phone] Leslie Coello RN Unavailable [email or web address] Scott Hooper Unavailable [phone] Gadiel Tripp Primary Care Provider + Encounter Details Date Type Department Care Team (Late st Contact Info) Description 12/12/2024 Procedure Pass [facility], Ct Scan - [address] [phone] Social History Tobacco Use Types Packs/Day Years [...] Info) Description 05/28/2025 3:20 PM EDT Nutrition [facility] at [address] [address] Scott Hooper [address] [address] [email or web address] 05/28/2025 3:40 PM EDT Office Visit [facility] at [address] [address] Scott Hooper [address] [address] [email or web address] documented as of this encounter Visit Diagnoses Not on filedocumented in this encounter Care Teams Armhole Sewer Relationship Specialty Start Date End Date Chirag River MD [address] [place] [address] PCP - General Internal Medicine 06/21/15 12/18/24 Gadiel Tripp PA [address] [place] [address] PCP - General Physician Boring Machine Operator Horizontal 12/19/24 Wilfred Maynard MD [address] [place] [address] Referring Physician Internal Medicine 11/19/15 Vira Nur MD [address] [place] [address] [email or web address] 04/16/23 Gadiel Tripp PA [address] [place] [address] Physician Boring Machine Operator Horizontal 04/16/23 Wilfred Maynard MD [address] [place] [address] Referring Physician Medical Oncology 04/16/23 Lelsie Coello RN [address] [place] [address] [email or web address] Primary Infusion Nurse 02/22/24 Scott Hooper MBBS [address] [place] [address] [email or web address] 03/01/24 documented as of this encounter Additional Source Comments The information contained in this document represents components of the legal health record. It is not the complete legal health record.[facility]
--- OUTSIDE RECORDS SUMMARY | 2025-05-08 13:48 | XMS_ITS | Clinical Summary ---
Author Organization [facility] [[email or web address]] Address [address] [place] [address] Care Team Providers Care Manager Float Name Role Phone Unavailable Primary Care Provider [...] 09/24/2023 Social Influencers of Health Screening 09/24/2023 Depression Screening 08/30/2024 COVID-19 Vaccine ( - 2023-2 5 season) 2025 Influenza Vaccine (#1) 2025 RSV Immunization Adult [...]
--- OUTSIDE RECORDS SUMMARY | 2025-05-08 13:48 | XMS_ITS | Encounter Summary ---
Author Organization [facility] Address [address] [place] [address] [address] [place] [address] Phone Care Team Providers Care Sheet Folder Name Role Phone Chirag River MD Primary Care Provider [phone] Wilfred Maynard MD Unavailable [phone] Vira Nur MD Unavailable [phone] Gadiel Tripp Unavailable [phone] Wilfred Maynard MD Unavailable [phone] Leslie Coello RN Unavailable Leslie [email or web address] Scott Hooper Unavailable [phone] Gadile Tripp Primary Care Provider + Encounter Details Date Type Department Care Team (Late st Contact Info) Description 12/14/2024 Procedure Pass [facility], [address] [phone] Social History Tobacco Use Types Packs/Day Years [...] 3:20 PM EDT Nutrition [facility] at [address] [address] Scott Hooper [address] [address] [email or web address] 05/28/2025 3:40 PM EDT Office Visit [facility] at [address] [address] Scott Hooper [address] [address] [email or web address] documented as of this encounter Visit Diagnoses Not on filedocumented in this encounter Care Teams Sheet Folder Relationship Specialty Start Date End Date Chirag River MD [address] [place] [address] PCP - General Internal Medicine 06/21/15 12/18/24 Gadiel Tripp PA [address] [place] [address] PCP - General Physician Journeyman Painter 12/19/24 Wilfred Maynard MD [address] [place] [address] Referring Physician Internal Medicine 11/19/15 Vira Nur MD [address] [place] [address] [email or web address] Medical Oncology 04/16/23 Gadiel Tripp PA [address] [place] [address] Physician Journeyman Painter 04/16/23 Wilfred Maynard MD [address] [place] [address] Referring Physician Medical Oncology 04/16/23 Leslie Coello RN [address] [place] [address] [email or web address] Primary Infusion Nurse 02/22/24 Scott Hooper MBBS [address] [place] [address] [email or web address] 03/01/24 documented as of this encounter Additional Source Comments The information contained in this document represents components of the legal health record. It is not the complete legal health record.[facility]
--- OUTSIDE RECORDS SUMMARY | 2025-05-08 13:48 | XMS_ITS | Clinical Summary ---
Author Organization [facility] Address [address] [place] [phone] Phone Care Team Providers Care Assistant Professor Of Archaeology Name Role Phone Wilfred Maynard MD Unavailable [phone] Vira Nur MD Unavailable [phone] Gadiel Tripp Unavailable [phone] Wilfred Maynard MD Unavailable [phone] Leslie Coello RN Unavailable [email or web address] Scott HooperBS Unavailable [phone] Gadiel Tripp Primary Care Provider + Allergies No known active allergies Medications escitalopram oxalate (LEXAPRO) 20 MG tablet Take 20 mg by mouth daily. Active cholecalciferol (VITAMIN D3) 25 MCG (1,000 unit) tablet Take 1,000 Units by mouth daily. Active darolutamide (NUBEQA) 300 mg tabletIndications: Malignant neoplasm of prostate Take 2 tablets (600 mg total) by mouth 2 (two) times a day. Follow instructions given by provider. 120 tablet 10 02/22/20 24 Active lidocaine 4 % Place 2 patches onto the skin daily. 02/14/20 25 Active amLODIPine (NORVASC) 2.5 MG tablet Take 5 mg by mouth daily. Active ondansetron (ZOFRAN-ODT) 4 MG disintegrating tablet Take 4 mg by mouth every 8 (eight) hours as needed for nausea. Active docusate sodium (COLACE) 100 MG capsuleIndications :constipation Take 200 mg by mouth 2 (two) times a day as needed. Indications: constipation Active omeprazole (PRILOSEC) 40 MG capsule Take 40 mg by mouth daily. Active bisacodyl (DULCOLAX) [address] 1 suppository (10 mg total) rectally daily as needed (constipation). 02/24/20 25 Active multivitamin with amaxrio-nbfubysc-w olic acid-vit k-lycopene (MEN'S ONE-A-DAY) 240 mcg-30 mcg- 300 mcg Tab tablet Take 1 tablet by mouth daily. 02/24/20 25 Active polyethylene glycol (MIRALAX) 17 gram packet Take 17 g by mouth 2 (two) times a day. 02/24/20 25 Active diphenhydramine-li xfyazqb-xyff-huy-s imethicone (MAGIC MOUTHWASH-BLM) [phone] mg/30mL suspension Swish and swallow 10 mL 4 (four) times a day as needed (esophageal irritiation). 02/24/20 25 Active fentaNYL (DURAGESIC) 50 mcg/hr Place 1 patch onto the skin every third day. CancerPain-part ial fill ok 5 patch 04/12/20 25 Active oxyCODONE HCl 10 mg Tab Take 1 tab po q 4-6 hours prn pain, nte 6 tabs/day. CancerPain-part ial fill ok 84 tablet 04/12/20 25 Active darolutamide (NUBEQA) 300 mg tabletIndications: Malignant neoplasm of prostate Take 2 tablets (600 mg total) by mouth 2 (two) times a day. Follow instructions given by provider. 120 tablet 10 04/26/20 25 Active senna (SENOKOT) 8.6 mg tabletIndications: Other constipation Take 2 tablets by mouth nightly at bedtime as needed for constipation. 60 tablet 6 04/26/20 25 Active lactulose (CONSTULOSE) 10 gram/15 mL solutionIndication s:Other constipation Take 15 mL (10 g total) by mouth 2 (two) times a day as needed (constipation). 4723 mL 1 04/26/20 Active LORazepam (ATIVAN) 0.5 MG tablet Take 1 tablet (0.5 mg total) by mouth once for 1 dose. Prior to MRI 1 tablet 01/24/20 Discontin ued(No longer taking) senna (SENOKOT) 8.6 mg tablet Take 2 tablets by mouth nightly at bedtime as needed for constipation. 025 Discontin ued(Reord er) oxyCODONE HCl 10 mg Tab Take 1 tab po q 4-6 hours prn pain, nte 6 tabs/day. CancerPain-part ial fill ok 84 tablet 03/23/20 Discontin ued(Reord er) fentaNYL (DURAGESIC) 50 mcg/hr Place 1 patch onto the skin every third day. CancerPain-part ial fill ok 5 patch 03/23/20 Discontin ued(Reord er) Active Problems Problem Noted Date Diagnosed Date [...] 10 mg q4hrs PRN (home med). On [facility] transfer, pt reported minimal improvement w/ [...] 10 mg q4hrs PRN (home med). On [facility] transfer, pt reported minimal improvement w/ [...] 10 mg q4hrs PRN (home med). On [facility] transfer, pt reports minimal improvement w/ [...] 10 mg q4hrs PRN (home med). On [facility] transfer, pt reports minimal improvement w/ [...] 10 mg q4hrs PRN (home med). On [facility] transfer, pt reports minimal improvement w/ [...] 10 mg q4hrs PRN (home med). On [facility] transfer, pt reports minimal improvement w/ [...] 10 mg q4hrs PRN (home med). On H transfer, pt reports minimal improvement w/ above [...] Ongoing pain control issue, most recently saw [facility] outpatient 01/16. Was planned to start RT after MRI, but was lost to follow up. Presented to OSH with progressively worsening back pain notably w/ recent MRI T spine / with lytic lesion at R paraspinal region [...] to be titrated Outpatient Rad Oncologist: Dr Zhang - Appreciate Rad Onc involvement, planned for [...] recent MRI spine w/ MRI T spine / with lytic lesion at R paraspinal region [...] Fuller. Recommend radiosurgery to the spine at [facility] with dedicated specialist. 02/10: started [...] scheduled, patient may decline dose -transfer to [facility] requested; patient accepted by Dr Vira Valencia; [...] Fuller. Recommend radiosurgery to the spine at [facility] with dedicated specialist. Dr. Hooper [...] Fuller. Recommend radiosurgery to the spine at [facility] with dedicated specialist. Dr. Hooper [...] Fuller. Recommend radiosurgery to the spine at [facility] with dedicated specialist. Dr. Hooper [...] Fuller. Recommend radiosurgery to the spine at [facility] with dedicated specialist. Dr. Hooper [...] guidance 02/09. Unfortunately, PPN not offered at [facility]. Improvement of symptoms s/p BM, patient [...] guidance 02/09. Unfortunately, PPN not offered at [facility]. Improvement of symptoms s/p BM, patient [...] guidance 02/09. Unfortunately, PPN not offered at [facility]. Improvement of symptoms s/p BM, patient [...] guidance 02/09. Unfortunately, PPN not offered at [facility]. Improvement of symptoms s/p BM, patient [...] guidance 02/09. Unfortunately, PPN not offered at [facility]. Improvement of symptoms s/p BM, patient [...] guidance 02/09. Unfortunately, PPN not offered at [facility]. Improvement of symptoms s/p BM, patient [...] guidance 02/09. Unfortunately, PPN not offered at [facility]. Improvement of symptoms s/p BM, patient [...] guidance 02/09. Unfortunately, PPN not offered at [facility]. Improvement of symptoms s/p BM, patient [...] guidance 02/09. Unfortunately, PPN not offered at [facility]. - Appreciate Nutrition consult - Encourage [...] mets 2005: Initial diagnosis of prostate cancer, Encino score 7, s/p radical prostatectomy - followed [...] to not taking Darolutamide for several months BELT FIXER given poor appetite/poor PO intake and was [...] eighth rib. Primary Onc: Dr. Vira Valencia ([facility])/Local Oncologst: Dr. Maynard ([facility]); Outpatient Rad Onc: Dr Zhang - Onc [...] to not taking Darolutamide for several months BELT FIXER given poor appetite/poor PO intake and was [...] eighth rib. Primary Onc: Dr. Vira Valencia ([facility])/Local Oncologst: Dr. Maynard ([facility]); Outpatient Rad Onc: Dr Zhang - Onc [...] to not taking Darolutamide for several months BELT FIXER given poor appetite/poor PO intake and was [...] eighth rib. Primary Onc: Dr. Vira Valencia ([facility])/Local Oncologst: Dr. Maynard ([facility]); Outpatient Rad Onc: Dr Zhang - Onc [...] to not taking Darolutamide for several months BELT FIXER given poor appetite/poor PO intake and was [...] eighth rib. Primary Onc: Dr. Vira Valencia ([facility])/Local Oncologst: Dr. Maynard ([facility]); Outpatient Rad Onc: Dr Zhang - Onc [...] to not taking Darolutamide for several months BELT FIXER given poor appetite/poor PO intake and was [...] eighth rib. Primary Onc: Dr. Vira Valencia ([facility])/Local Oncologst: Dr. Maynard ([facility]); Outpatient Rad Onc: Dr Zhang - Onc [...] (02/17/2025 2:50 PM EDT): Initially diagnosed in 2005. S/p radical prostatectomy (2005). Found to have rib met in 2022 s/p RT apr 2023. Currently treated w/ Lupron Q6 months and Darolutamide QD (however pt admits to not taking Darolutamide for several months BELT FIXER given poor appetite/poor PO intake and was told he is supposed to take this with food). Course c/b worsening #cancer pain, MRI entire spine 02/15 shows bony mets T5-9 w/ minimally increased paraspinal component w/ epidural disease, but no cord compression. Restaging CTCAP 02/15 w/o evidence of metastatic disease in chest or abd/pelvis. Primary Onc: Dr. Vira Valencia ([facility])/Local Oncologst: Dr. Maynard ([facility]); Outpatient Rad Onc: Dr Zhang - Onc [...] to not taking Darolutamide for several months BELT FIXER given poor appetite/poor PO intake and was told he is supposed to take this with food). Course c/b worsening #cancer pain, MRI entire spine 02/15 shows bony mets T5-9 w/ minimally increased paraspinal component w/ epidural disease, but no cord compression. Restaging CTCAP 02/15 w/o evidence of metastatic disease in chest or abd/pelvis. Primary Onc: Dr. Vira Valencia ([facility])/Local Oncologst: Dr. Maynard ([facility]); Outpatient Rad Onc: Dr Zhang - Onc [...] pending at this time. Primary Onc: Dr. Vira Valencia/ Local Oncologst: Dr. Maynard ([facility]) - Onc plan per primary onc team [...] Dr. Vira Valencia/ Local Oncologst: Dr. Maynard ([facility]) - Onc plan per primary onc team, [...] mets 2005: Initial diagnosis of prostate cancer, Encino score 7, s/p radical prostatectomy Subsequently received [...] control. I have reached out to the [facility] team. Patient is sent to the ER for pain management, palliative care consultation and hydration. RECOMMENDATIONS: Patient is sent to the ER and I have called and discussed the case with the triage nurse Patient needs hospitalization for Pain management and IV hydration I would recommend palliative care consultation and radiation oncology consultation Will discuss [facility] team to see if patient needs to be transferred to [facility] for further management in this regard Thank [...] He will maintain close follow-up with his [facility] team Return for follow-up in after the above-mentioned Thank you very much for allowing to participate in this patient's care Assessment & Plan (07/20/2024 10:02 AM EST): IMPRESSION: This is a 69-year-old man with the following diagnosis: Prostate adenocarcinoma, stage IV, skeletal mets 2005: Initial diagnosis of prostate cancer, Encino score 7, s/p radical prostatectomy Subsequently received [...] and Taxotere chemotherapy. I reviewed records from [facility]. He was seen by neurosurgery and no [...] He will maintain close follow-up with his [facility] team Return for follow-up in 6 weeks with labs Thank you very much for allowing to participate in this patient's care Assessment & Plan (06/30/2024 12:52 PM EDT): IMPRESSION: This is a 68-year-old man with the following diagnosis: Prostate adenocarcinoma, stage IV, skeletal mets 2005: Initial diagnosis of prostate cancer, Encino score 7, s/p radical prostatectomy Subsequently received [...] and Taxotere chemotherapy. I reviewed records from [facility]. He was seen by neurosurgery and no [...] He will maintain close follow-up with his [facility] team Return for follow-up in 3 weeks [...] and Taxotere chemotherapy. I reviewed records from [facility]. He was seen by neurosurgery and no [...] He will maintain close follow-up with his [facility] team Return for follow-up in 3 weeks Thank you very much for allowing to participate in this patient's care Assessment & Plan (04/06/2024 11:14 AM EDT): IMPRESSION: This is a 68-year-old man with the following diagnosis: Prostate adenocarcinoma, stage IV, skeletal mets 2006: Initial diagnosis of prostate cancer, Encino score 7, s/p radical prostatectomy Subsequently received [...] and Taxotere chemotherapy. I reviewed records from [facility]. He was seen by neurosurgery and no [...] He will maintain close follow-up with his [facility] team Return for follow-up in 3 weeks Thank you very much for allowing to participate in this patient's care Assessment & Plan (03/16/2024 2:01 PM EDT): IMPRESSION: This is a 68-year-old man with the following diagnosis: Prostate adenocarcinoma, stage IV, skeletal mets 2005: Initial diagnosis of prostate cancer, Encino score 7, s/p radical prostatectomy Subsequently received [...] chemotherapy. I reviewed all his records from [facility]. I agree with recommendations by Dr. Nur. [...] chemo teaching Patient will meet with our marriage and family social worker and core placer He is scheduled to undergo a PSMA PET scan and an MRI Return for follow-up on C1D1 of chemotherapy Thank you very much for allowing to participate in this patient's care Encounters Date Type Department Care Team Description 05/08/2025 Refill [facility] at [address] [address] Kati Weiner, steam shovel engineer Refill 05/01/2025 Documentation [facility] [address] [place] [phone] Jalyn Linder, [facility] 04/27/2025 Documentation [facility] [address] [place] [address] Lilliam Wheat, [facility] 04/26/2025 10:01 AM EDT - 04/26/2025 11:59 PM EDT Hospital Encounter [facility] [address] [place] [phone] Scott Hooper MBBS Discharge Disposition: Home or Self Care 04/26/2025 9:20 AM EDT Office Visit [facility] at [address] [address] Scott Hooper MBBS Malignant neoplasm of prostate (Primary Dx); Anemia in other chronic diseases classified elsewhere; Other constipation; Weight loss 04/26/2025 Telephone [facility] at [address] [address] Scott Hooper MBBS PET scheduling 04/25/2025 12:00 PM EDT Home Care Visit [facility] [address] [place] [phone] Verito Lennon LPN [employer] HOME VISIT 04/19/2025 Telephone [facility] at [address] [address] Cassi Narvaez RN 04/19/2025 Orders Only [facility] at [address] [address] Delmi Mays 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) 04/18/2025 10:51 AM EDT - 04/18/2025 3:34 PM EDT Emergency [facility] [address] [place] [phone] Discharge Disposition: Home or Self Care 04/18/2025 Procedure Pass [facility] Scan - [address] [address] 04/18/2025 Procedure Pass [facility] Ct Scan - [address] [address] 04/13/2025 9:41 AM EDT - 04/13/2025 11:59 PM EDT Hospital Encounter [facility], X-Ray - [address] [address] Kelsie Jamison CNP Discharge Disposition: Home or Self Care 04/13/2025 Telephone [facility] at [address] [address] Scott Hooper MBBS PET scan 04/13/2025 Orders Only [facility] at [address] [address] Kelsie Jamison CNP 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) 04/12/2025 10:40 AM EDT - 04/12/2025 11:59 PM EDT Hospital Encounter [facility] [address] [place] [address] [facility] MD Discharge Disposition: Home or Self Care 04/12/2025 10:00 AM EDT Office Visit [facility] [address] [place] [address] [facility] MD Palliative care encounter (Primary Dx); Cancer related pain; Use of opiates for therapeutic purposes; Prostate cancer metastatic to bone 04/11/2025 11:30 AM EDT Home Care Visit [facility] [address] [place] [phone] Ela Bran RN SN HOME VISIT 04/06/2025 12:30 PM EDT Home Care Visit [facility] [address] [place] [phone] Ela Bran RN SN HOME VISIT 03/28/2025 1:45 PM EDT Home Care Visit [facility] [address] [place] [phone] Verito Lennon LPN [employer] HOME VISIT 03/23/2025 Orders Only [facility] [address] [place] [address] [facility] MD 03/21/2025 11:00 AM EDT Home Care Visit [facility] [address] [place] [phone] Verito Lennon LPN [employer] HOME VISIT 03/12/2025 12:30 PM EDT Home Care Visit [facility] [address] [place] [phone] Verito Lennon LPN [employer] HOME VISIT 03/12/2025 Orders Only [facility] [address] [place] [phone] [facility] MD 03/12/2025 Refill [facility] at [address] [address] Kati Weiner, steam shovel engineer Refill 03/06/2025 10:30 AM EDT [facility] [address] [place] [phone] Ela Bran RN SN OASIS RECERTIFICATION/FUP 03/06/2025 Plan of Care Documentation [facility] [address] [place] [phone] 03/01/2025 Refill [facility] at [address] [address] Kati Weiner steam shovel engineer Refill 02/28/2025 11:30 AM EDT [facility] [address] [place] [phone] Ela Bran, FLAKITO SN OASIS RESUMPTION OF CARE (JOYCE) 02/26/2025 2:00 PM EDT Office Visit [facility] [address] [place] [phone] [facility] Granados MD Palliative care encounter (Primary Dx); Cancer related pain; Use of opiates for therapeutic purposes; Prostate cancer metastatic to bone 02/25/2025 [facility] [address] [place] [address] Renuka Gardner, RN CASE COMMUNICATION 02/23/2025 Home Health Resumption of Care Planning [facility] [address] [place] [address] Lucy Horta RN 02/23/2025 Radiation Completion Encounter Department of Radiation Oncology [address] [place] [phone] Jos Owens MD 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) 02/14/2025 Procedure Pass [facility] [address] [place] [address] 02/14/2025 Procedure Pass [facility] [address] [place] [address] 02/14/2025 Procedure Pass [facility] [address] [place] [address] 02/14/2025 Procedure Pass [facility] [address] [place] [address] 02/14/2025 Procedure Pass [facility] [address] [place] [address] 02/14/2025 Documentation Department of Radiation Oncology [address] [address] Ashley Fuller PA-C 02/13/2025 10:14 PM EDT - 02/23/2025 1:45 PM EDT Hospital Encounter [facility] 11D [address] [place] [address] Chanel Bush MD, MPH Sondra, Milady Aguirre MD, MPH Discharge Disposition: Home-Health Care Svc 02/12/2025 Home Care Visit [facility] [address] [place] [phone] Mary Scott, PT PT OASIS TRANSFER 02/12/2025 Orders Only [facility] at [address] [address] Scott Hooper MBBS 02/08/2025 10:45 AM EDT - 02/13/2025 8:10 PM EDT Hospital Encounter [facility] [address] [address] Danica Bowie DO, MPH Emy Tinoco MD Arepally, Sandeep, MD Discharge Disposition: Short Term Hospital 02/08/2025 10:30 AM EDT Nutrition [facility] at [address] [address] Scott Hooper MBBS 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) 02/08/2025 10:00 AM EDT Office Visit [facility] at [address] [address] Scott Hooper MBBS Secondary cancer of bone (Primary Dx); Malignant neoplasm of prostate 02/08/2025 Telephone [facility] at [address] [address] Scott Hooper MBBS 02/07/2025 9:00 AM EDT Home Care Visit [facility] [address] [place] [phone] Mary Scott, PT PT HOME VISIT 02/06/2025 12:00 PM EDT Home Care Visit [facility] [address] [place] [phone] Lakeisha Cardoza LPN [employer] HOME VISIT 02/05/2025 9:00 AM EDT Home Care Visit [facility] [address] [place] [phone] Mary Scott, PT PT HOME VISIT from Last 3 Months Immunizations Immunization Administration Dates Next Due INFLUENZA, SPLIT VIRUS, TRIVALENT PF 06/26/2024 INFLUENZA, SPLIT VIRUS, TRIV ALENT W/ PRESERVATIVE IM 06/08/2018 Influenza Quadrivalent Prese rvative Free IM 08/26/2023,06/23/2022,06/04/2021,06/18,07/20/2018,07/10/2015 Influenza Quadrivalent w/ Pr eservative IM 05/30/2019,07/01/2016 Pneumococcal polysaccharide PPSV23 10/26/2018 Tdap 04/22/2018 Zoster live 07/10/2015 Family History Medical History Relation Comments Cancer Brother Cancer Maternal Uncle Cancer Sister Relation Status Comments Brother Maternal Uncle Sister Social History Tobacco Use Types Packs/Day Years Used Date Smoking Tobacco: Never Smokeless Tobacco: Never Tobacco Cessation:Counseling Given: Not [...] Orientation Straight 04/16/2023 5: 28 PM EDT Last Filed Vital Signs Vital Sign Reading Time Taken Comments Blood Pressure 122/77 04/26/2025 9:14 AM EDT Pulse 85 04/26/2025 9:14 AM EDT Temperature 36.4 C (97.5 F) 04/18/2025 3:24 PM EDT Respiratory Rate 18 04/25/2025 12:1 2 PM EDT Oxygen Saturation 96% 04/26/2025 9:14 AM EDT Inhaled Oxygen Concentration - - Weight 71.1 kg (156 lb 12.8 oz) 04/26/2025 9:14 AM EDT Height 193 cm (6' 3.98 ) 04/26/2025 9:14 AM EDT Body Mass Index 19.09 04/26/2025 9:14 AM EDT Plan of Treatment Upcoming Encounters Date Type Department Care Team (Late st Contact Info) Description 05/28/2025 3:20 PM EDT Nutrition [facility] at [address] [address] Scott Hooper MBBS [address] [place] [phone] [email or web address] 05/28/2025 3:40 PM EDT Office Visit [facility] at [address] [address] Scott Hooper MBBS [address] [place] [phone] [email or web address] Maintenance Due Date Last Done Comments LIPID PANEL 1955 DEPRESSION SCREENING 1967 HEPATITIS C SCREENING 1973 COLOGUARD 2000 COLONOSCOPY 2000 COLORECTAL CANCER SCREENING 2000 FIT TEST 2000 FOBT 2000 SIGMOIDOSCOPY 2000 VIRTUAL COLONOSCOPY 2000 ZOSTER VACCINES (1 of 2) 09/04/2015 07/10/2015 PNEUMOCOCCAL VACCINES (50+ years) (2 of 2 - PCV) 10/26/2019 10/26/2018 INFLUENZA VACCINE (#1) 2025 , 08/26/2023, 06/23/2022, Additional history exists COVID-19 VACCINE ( - season) 2025 BLOOD PRESSURE 10/27/2025 04/26/2025 Adult Td,Tdap Booster 04/22/2028 04/22/2018 RSV VACCINE (1 - 1-dose 75+ series) 2030 SMOKING STATUS SCREENING (Once After 26 Yrs) Completed 04/18/2025 HEPATITIS A VACCINES Aged Out No long er eligible based on patient's age to complete this topic HIB VACCINES Aged Out No longer eligi ble based on patient's age to complete this topic MENINGOCOCCAL VACCINES (ACWY) Aged Out No longer eligible based on patient's age to complete this topic MENINGOCOCCAL VACCINES (B) Aged Out N o longer eligible based on patient's age to complete this topic Medical Devices Not on file Procedures Procedure Name Priority Date/Time Associated Diagnosis Comments CBC AND DIFFERENTIAL Routine 04/26/2025 10:06 AM EDT Malignant neoplasm of prostate COMPREHENSIVE METABOLIC PANEL Routine 04/26/2025 10:06 AM EDT Malignant neoplasm of prostate PSA DIAGNOSTIC (MONITORING) Routine 04/26/2025 10:06 AM EDT Malignant neoplasm of prostate FERRITIN Routine 04/26/2025 10:06 AM EDT Anemia in other chronic diseases classified elsewhere FOLATE Routine 04/26/2025 10:06 AM EDT Anemia in other chronic diseases classified elsewhere IRON AND IRON BINDING CAPACITY Routine 04/26/2025 10:06 AM EDT Anemia in other chronic diseases classified elsewhere MAGNESIUM STAT 04/18/2025 2:05 PM EDT BASIC METABOLIC PANEL STAT 04/18/2025 2:05 PM EDT VITAMIN B12 STAT 04/18/2025 12:25 PM EDT CBC AND DIFFERENTIAL STAT 04/18/2025 12:[address] FACE WITHOUT CONTRAST Routine 04/18/2025 12:[address] HEAD WITHOUT CONTRAST Routine 04/18/2025 12:11 PM EDT XR RIBS 3 OR MORE VIEWS WITH PA CHEST (LEFT) Routine 04/18/2025 11:44 AM EDT XR HAND 3 OR MORE VIEWS (LEFT) Routine 04/18/2025 11:44 AM EDT XR SHOULDER 2 VIEWS (LEFT) Routine 04/18/2025 11:43 AM EDT XR FEMUR (RIGHT) 2 VIEWS Routine 04/13/2025 10:00 AM EDT Prostate cancer metastatic to bone LIPASE Routine 04/12/2025 10:45 AM EDT Malignant neoplasm of prostate Pain AMYLASE Routine 04/12/2025 10:45 AM EDT Malignant neoplasm of prostate Pain PSA DIAGNOSTIC (MONITORING) Routine 04/12/2025 10:45 AM EDT Malignant neoplasm of prostate COMPREHENSIVE METABOLIC PANEL Routine 04/12/2025 10:45 AM EDT Malignant neoplasm of prostate CBC AND DIFFERENTIAL Routine 04/12/2025 10:45 AM EDT Malignant neoplasm of prostate PHOSPHORUS Routine 02/23/2025 8:15 AM EDT MAGNESIUM Routine 02/23/2025 8:15 AM EDT COMPREHENSIVE METABOLIC PANEL Routine 02/23/2025 8:15 AM EDT CBC AND DIFFERENTIAL Routine 02/23/2025 8:15 AM EDT RAD ONC ARIA SESSION SUMMARY Routine 02/23/2025 6:55 AM EDT PHOSPHORUS Routine 02/22/2025 7:28 AM EDT MAGNESIUM Routine 02/22/2025 7:28 AM EDT COMPREHENSIVE METABOLIC PANEL Routine 02/22/2025 7:28 AM EDT CBC AND DIFFERENTIAL Routine 02/22/2025 7:28 AM EDT RAD ONC ARIA SESSION SUMMARY Routine 02/22/2025 6:54 AM EDT RAD ONC ARIA SESSION SUMMARY Routine 02/21/2025 9:06 AM EDT PHOSPHORUS Routine 02/21/2025 8:37 AM EDT MAGNESIUM Routine 02/21/2025 8:37 AM EDT COMPREHENSIVE METABOLIC PANEL Routine 02/21/2025 8:37 AM EDT CBC AND DIFFERENTIAL Routine 02/21/2025 8:37 AM EDT RAD ONC ARIA SESSION SUMMARY Routine 02/20/2025 7:41 AM EDT PHOSPHORUS Routine 02/20/2025 6:49 AM EDT MAGNESIUM Routine 02/20/2025 6:49 AM EDT COMPREHENSIVE METABOLIC PANEL Routine 02/20/2025 6:49 AM EDT CBC AND DIFFERENTIAL Routine 02/20/2025 6:49 AM EDT RAD ONC ARIA SESSION SUMMARY Routine 02/19/2025 3:54 PM EDT PHOSPHORUS Routine 02/19/2025 8:42 AM EDT MAGNESIUM Routine 02/19/2025 8:42 AM EDT COMPREHENSIVE METABOLIC PANEL Routine 02/19/2025 8:42 AM EDT CBC AND DIFFERENTIAL Routine 02/19/2025 8:42 AM EDT PHOSPHORUS Routine 02/18/2025 8:21 AM EDT MAGNESIUM Routine 02/18/2025 8:21 AM EDT COMPREHENSIVE METABOLIC PANEL Routine 02/18/2025 8:21 AM EDT CBC AND DIFFERENTIAL Routine 02/18/2025 8:21 AM EDT COMPREHENSIVE METABOLIC PANEL Routine 02/17/2025 5:34 PM EDT XR ABDOMEN 1 VIEW Routine 02/17/2025 5:3 3 PM EDT PHOSPHORUS Routine 02/17/2025 9:01 AM EDT MAGNESIUM Routine 02/17/2025 9:01 AM EDT COMPREHENSIVE METABOLIC PANEL Routine 02/17/2025 9:01 AM EDT CBC AND DIFFERENTIAL Routine 02/17/2025 9:01 AM EDT PHOSPHORUS Routine 02/16/2025 7:48 AM EDT MAGNESIUM Routine 02/16/2025 7:48 AM EDT COMPREHENSIVE METABOLIC PANEL Routine 02/16/2025 7:48 AM EDT CBC AND DIFFERENTIAL Routine 02/16/2025 7:48 AM EDT PHOSPHORUS Routine 02/15/2025 8:51 AM EDT MAGNESIUM Routine 02/15/2025 8:51 AM EDT COMPREHENSIVE METABOLIC PANEL Routine 02/15/2025 8:51 AM EDT CBC AND DIFFERENTIAL Routine 02/15/2025 8:51 AM EDT 25-OH VITAMIN D Routine 02/15/2025 8:51 AM EDT ZINC Routine 02/15/2025 8:51 AM EDT MRI LUMBAR SPINE (NEURO) WITH AND WITHOUT CONTRAST Routine 02/15/2025 7:45 AM EDT MRI THORACIC SPINE (NEURO) WITH AND WITHOUT CONTRAST Routine 02/15/2025 7:45 AM EDT MRI CERVICAL SPINE (NEURO) WITH AND WITHOUT CONTRAST Routine 02/15/2025 7:[address] ABDOMEN/PELVIS WITH CONTRAST Routine 02/14/2025 10:[address] CHEST WITH CONTRAST Routine 10:16 PM EDT PT-INR Routine 02/14/2025 6:33 AM EDT PTT Routine 02/14/2025 6:33 AM EDT PHOSPHORUS Routine 02/14/2025 6:33 AM EDT MAGNESIUM Routine 02/14/2025 6:33 AM EDT COMPREHENSIVE METABOLIC PANEL Routine 02/14/2025 6:33 AM EDT CBC AND DIFFERENTIAL Routine 02/14/2025 6:33 AM EDT VANCOMYCIN RESISTANT ENTEROCOCCI (VRE) RECTAL SCREEN Routine 02/14/2025 5:50 AM EDT MRSA NASAL SCREEN Routine 02/14/2025 5:5 0 AM EDT PT-INR Routine 02/13/2025 5:43 AM EDT PHOSPHORUS Routine 02/13/2025 5:43 AM EDT MAGNESIUM Routine 02/13/2025 5:43 AM EDT COMPREHENSIVE METABOLIC PANEL Routine 02/13/2025 5:43 AM EDT CBC AND DIFFERENTIAL Routine 02/13/2025 5:43 AM EDT PT-INR Routine 02/12/2025 5:24 AM EDT PHOSPHORUS Routine 02/12/2025 5:24 AM EDT MAGNESIUM Routine 02/12/2025 5:24 AM EDT COMPREHENSIVE METABOLIC PANEL Routine 02/12/2025 5:24 AM EDT CBC AND DIFFERENTIAL Routine 02/12/2025 5:24 AM EDT PT-INR Routine 02/11/2025 5:38 AM EDT PHOSPHORUS Routine 02/11/2025 5:38 AM EDT MAGNESIUM Routine 02/11/2025 5:38 AM EDT COMPREHENSIVE METABOLIC PANEL Routine 02/11/2025 5:38 AM EDT CBC AND DIFFERENTIAL Routine 02/11/2025 5:38 AM EDT CBC Routine 02/10/2025 6:07 AM EDT TRIGLYCERIDES Routine 02/10/2025 6:07 AM EDT PHOSPHORUS Routine 02/10/2025 6:07 AM EDT MAGNESIUM Routine 02/10/2025 6:07 AM EDT BASIC METABOLIC PANEL Routine 02/10/2025 6:07 AM EDT ECG 12-LEAD Routine 02/09/2025 6:39 AM EDT CBC Routine 02/09/2025 5:44 AM EDT PREALBUMIN Routine 02/09/2025 5:44 AM EDT PHOSPHORUS Routine 02/09/2025 5:44 AM EDT MAGNESIUM Routine 02/09/2025 5:44 AM EDT BASIC METABOLIC PANEL Routine 02/09/2025 5:44 AM EDT ECG 12-LEAD Routine 02/08/2025 2:26 PM EDT CBC STAT 02/08/2025 2:02 PM EDT COMPREHENSIVE METABOLIC PANEL STAT 02/08/2025 2:02 PM EDT MAGNESIUM STAT 02/08/2025 2:02 PM EDT LIPASE Routine 02/08/2025 2:02 PM EDT XR CHEST PA AND LATERAL 2 VIEWS Routine 02/08/2025 11:49 AM EDT from Last 3 Months Results * (ABNORMAL) Comprehensive metabolic panel (04/26/2025 10:06 AM EDT) Only the most recent of17 resultswithin the time period is included. SODIUM 136 133 - 146 mmol/L [facility] POTASSIUM 3.6 3.3 - 5.1 mmol/L [facility] CHLORIDE 97 96 - 108 mmol/L [facility] CO2 24 21 - 35 mmol/L [facility] BUN 16 6 - 19 mg/dL [facility] CREATININE 0.60 0.5 - 1.5 mg/dL [facility] GLUCOSE 113(H) 70 - 99 mg/dL [facility] ALBUMIN 4.0 3.9 - 4.8 g/dL [facility] TOTAL PROTEIN 7.3 6.5 - 8.0 g/dL [facility] CALCIUM 9.7 8.4 - 10.3 mg/dL [facility] ALKALINE PHOSPHATASE 108 39 - 117 U/L [facility] TOTAL BILIRUBIN 0.4 0.0 - 1.2 mg/dL [facility] AST 14 0 - 37 U/L [facility] ALT 6 0 - 40 U/L [facility] GLOBULIN 3.3 1 - 4.8 g/dL [facility] EGFR 104 >59 mL/min/1.7 3m2 [facility] Comment:Estimated glomerular filtration rate calculated using the CKD-EPI refit equation. ANION GAP 19 10 - 20 mmol/L [facility] Blood 04/26/2025 10:0 6 AM EDT 04/26/2025 10:20 AM EDT Scott Hooper [facility] LAB BLOOD ORDERABLES Final Result [facility] [address] [place] [address] * PSA diagnostic (monitoring) (04/26/2025 10:06 AM EDT) Only the most recent of2 resultswithin the time period is included. PSA 0.42 0 - 4.00 ng/mL [facility] Comment: Test Methodology Jordan [id number] Patient results determined by assays using different manufacturers or methods may not be comparable. Blood 04/26/2025 10:0 6 AM EDT 04/26/2025 10:20 AM EDT [facility] LAB BLOOD ORDERABLES Final Result Performing Organization Address City/[facility] Co de Phone Number [address] [address] * (ABNORMAL) Iron and iron binding capacity (04/26/2025 10:06 AM EDT) IRON 39(L) 45 - 160 ug/dL [facility] IRON BINDING CAPACITY 216(L) 228 - 428 ug/dL [facility] TRANSFERRIN SATURAT. 18(L) 20 - 55 % [facility] Blood 04/26/2025 10:0 6 AM EDT 04/26/2025 10:20 AM EDT [facility] Final Result Performing Organization Address [facility] de Phone Number [address] [address] * (ABNORMAL) CBC and differential (04/26/2025 10:06 AM EDT) Only the most recent of16 resultswithin the time period is included. WBC 6.29 4.00 - 11.00 K/uL [facility] RBC 3.69(L) 4.50 - 5.90 M/uL [facility] HGB 11.7(L) 13.5 - 17.5 g/dL [facility] HCT 35.2(L) 41.0 - 53.0 % [facility] PLT 275 150 - 450 K/uL [facility] MCV 95.4 80.0 - 100.0 fL [facility] MCH 31.7(H) 27.0 - 31.0 pg [facility] MCHC 33.2 32.0 - 36.0 g/dL [facility] RDW 14.8(H) 11.5 - 14.5 % [facility] MPV 9.2 8.4 - 12.0 fL [facility] NRBC 0.00 0.00 /100 WBCs [facility] ABSOLUTE NRBC 0.00 0.00 K/uL [facility] DIFF METHOD Auto [facility] NEUTS 77.6(H) 48.0 - 76.0 % [facility] LYMPHS 9.4(L) 18.0 - 41.0 % [facility] MONOS 10.2 4.0 - 11.0 % [facility] EOS 2.2 0.0 - 5.0 % [facility] BASOS 0.3 0.0 - 1.5 % [facility] Granulocytes, immature (%) 0.3 0.0 - 0.9 % [facility] ABSOLUTE NEUTS 4.88 1.92 - 7.60 K/uL [facility] ABSOLUTE LYMPHS 0.59(L) 0.72 - 4.10 K/uL [facility] ABSOLUTE MONOS 0.64 0.16 - 1.10 K/uL [facility] ABSOLUTE EOS 0.14 0.00 - 0.50 K/uL [facility] ABSOLUTE BASOS 0.02 0.00 - 0.15 K/uL [facility] Granulocytes, immature 0.02 0.00 - 0.09 K/uL [facility] Blood 04/26/2025 10:0 6 AM EDT 04/26/2025 10:20 AM EDT us Ahmad D Hooper [facility] LAB BLOOD ORDERABLES Final Result [facility] [address] [place] [address] * Folate (04/26/2025 10:06 AM EDT) FOLIC ACID 13.7 4.2 - 19.9 ng/mL [facility] Blood 04/26/2025 10:0 6 AM EDT 04/26/2025 10:20 AM EDT us Ahmad D Hooper [facility] LAB BLOOD ORDERABLES Final Result [address] [address] * (ABNORMAL) Ferritin (04/26/2025 10:06 AM EDT) Pathologist [facility] FERRITIN 529(H) 30 - 400 ug/L [facility] Blood 04/26/2025 10:0 6 AM EDT 04/26/2025 10:20 AM EDT Scott GORDON LAB BLOOD ORDERABLES Final Result Performing Organization Address [facility]/ZIP Co de Phone Number [address] [address] * Magnesium (04/18/2025 2:05 PM EDT) Only the most recent of17 resultswithin the time period is included. Pathologist [facility] MAGNESIUM 1.6 1.6 - 2.6 mg/dL [facility] Blood 04/18/2025 2:05 PM EDT 04/18/2025 2:45 PM EDT Robyn Blas PA-C LAB BLOOD ORDERABLES Final R esult Performing Organization Address City/[facility]/ZIP Co de Phone Number [address] [address] * Basic metabolic panel (04/18/2025 2:05 PM EDT) Only the most recent of3 resultswithin the time period is included. SODIUM 135 133 - 146 mmol/L [facility] CHLORIDE 96 96 - 108 mmol/L [facility] POTASSIUM 3.4 3.3 - 5.1 mmol/L [facility] CO2 24 21 - 35 mmol/L [facility] BUN 10 6 - 19 mg/dL [facility] CREATININE 0.50 0.5 - 1.5 mg/dL [facility] GLUCOSE 79 70 - 99 mg/dL [facility] CALCIUM 9.3 8.4 - 10.3 mg/dL [facility] EGFR 110 >59 mL/min/1.7 3m2 [facility] Comment:Estimated glomerular filtration rate calculated using the CKD-EPI refit equation. ANION GAP 18 10 - 20 mmol/L [facility] Blood 04/18/2025 2:05 PM EDT 04/18/2025 2:45 PM EDT Robyn CORNELL-C LAB BLOOD ORDERABLES Final R esult Performing Organization Address City/[facility]/ZIP Co de Phone Number [address] [address] * (ABNORMAL) Vitamin B12 (04/18/2025 12:25 PM EDT) VITAMIN B12 >2000(H) 232 - 1245 pg/mL [facility] Blood 04/18/2025 12:2 5 PM EDT 04/18/2025 12:46 PM EDT Robynike CORNELL-C LAB BLOOD ORDERABLES Final R esult Performing Organization Address [facility] Co de Phone Number [address] [address] * CT FACE WITHOUT CONTRAST (04/18/2025 12:11 PM EDT) Anatomical Region Laterality Modality Face Computed Tomogra phy 04/18/2025 1:01 PM EDT Impressions 04/18/2025 1:07 PM EDT 1. No acute intracranial findings. 2. No acute maxillofacial fracture. Narrative 04/18/2025 1:[address] HEAD WITHOUT CONTRAST, CT FACE WITHOUT CONTRAST Referring clinician's provided indication for this examination in Epic: * Head trauma, minor (Age >= 65y) TECHNIQUE: CTs of the head and face were performed without intravenous contrast using tailored dose modulation techniques. Images were reconstructed in the axial, coronal, and sagittal planes. COMPARISON: None. FINDINGS: HEAD: Brain Parenchyma: No midline shift, mass effect, parenchymal hemorrhage, or evidence of acute territorial infarct. Hypodensities in the periventricular white matter, likely a manifestation of chronic small vessel disease. Ventricular System and Extra-Axial Spaces: Normal. No extra-axial fluid collections. Basal cisterns are patent. No hydrocephalus. Osseous and Extracranial Structures: Normal. No calvarial fracture or significant soft tissue hematoma. FACE: Bones: Normal. No acute fracture. Orbits: Normal. No orbital injury. Paranasal Sinuses and Mastoids: Clear. Soft Tissues: Normal. No significant soft tissue hematoma. Procedure Note Armen Mehta MD - 04/18/2025 CT HEAD WITHOUT CONTRAST, CT FACE WITHOUT CONTRAST Referring clinician's provided indication for this examination in Epic: *Head trauma, minor (Age >= 65y) TECHNIQUE: CTs of the head and face were performed without intravenouscontrast using tailored dose modulation techniques. Images werereconstructed in the axial, coronal, and sagittal planes. COMPARISON: None. FINDINGS: HEAD: Brain Parenchyma: No midline shift, mass effect, parenchymal hemorrhage,or evidence of acute territorial infarct. Hypodensities in theperiventricular white matter, likely a manifestation of chronic smallvessel disease. Ventricular System and Extra-Axial Spaces: Normal. No extra-axial fluidcollections. Basal cisterns are patent. No hydrocephalus. Osseous and Extracranial Structures: Normal. No calvarial fracture orsignificant soft tissue hematoma. FACE: Bones: Normal. No acute fracture. Orbits: Normal. No orbital injury. Paranasal Sinuses and Mastoids: Clear. Soft Tissues: Normal. No significant soft tissue hematoma. IMPRESSION: 1. No acute intracranial findings. 2. No acute maxillofacial fracture. us Robyn Blas PA-C IMJennifer CT HEAD/NECK Final Resul t * CT HEAD WITHOUT CONTRAST (04/18/2025 12:11 PM EDT) Anatomical Region Laterality Modality Head Computed Tomogra phy 04/18/2025 1:01 PM EDT Impressions 04/18/2025 1:07 PM EDT 1. No acute intracranial findings. 2. No acute maxillofacial fracture. Narrative 04/18/2025 1:[address] HEAD WITHOUT CONTRAST, CT FACE WITHOUT CONTRAST Referring clinician's provided indication for this examination in [facility]: * Head trauma, minor (Age >= 65y) TECHNIQUE: CTs of the head and face were performed without intravenous contrast using tailored dose modulation techniques. Images were reconstructed in the axial, coronal, and sagittal planes. COMPARISON: None. FINDINGS: HEAD: Brain Parenchyma: No midline shift, mass effect, parenchymal hemorrhage, or evidence of acute territorial infarct. Hypodensities in the periventricular white matter, likely a manifestation of chronic small vessel disease. Ventricular System and Extra-Axial Spaces: Normal. No extra-axial fluid collections. Basal cisterns are patent. No hydrocephalus. Osseous and Extracranial Structures: Normal. No calvarial fracture or significant soft tissue hematoma. FACE: Bones: Normal. No acute fracture. Orbits: Normal. No orbital injury. Paranasal Sinuses and Mastoids: Clear. Soft Tissues: Normal. No significant soft tissue hematoma. Procedure Note Armen Mehta MD - 04/18/2025 CT HEAD WITHOUT CONTRAST, CT FACE WITHOUT CONTRAST Referring clinician's provided indication for this examination in [facility]: *Head trauma, minor (Age >= 65y) TECHNIQUE: CTs of the head and face were performed without intravenouscontrast using tailored dose modulation techniques. Images werereconstructed in the axial, coronal, and sagittal planes. COMPARISON: None. FINDINGS: HEAD: Brain Parenchyma: No midline shift, mass effect, parenchymal hemorrhage,or evidence of acute territorial infarct. Hypodensities in theperiventricular white matter, likely a manifestation of chronic smallvessel disease. Ventricular System and Extra-Axial Spaces: Normal. No extra-axial fluidcollections. Basal cisterns are patent. No hydrocephalus. Osseous and Extracranial Structures: Normal. No calvarial fracture orsignificant soft tissue hematoma. FACE: Bones: Normal. No acute fracture. Orbits: Normal. No orbital injury. Paranasal Sinuses and Mastoids: Clear. Soft Tissues: Normal. No significant soft tissue hematoma. IMPRESSION: 1. No acute intracranial findings. 2. No acute maxillofacial fracture. Robyn Rouagapito PA-C IMG CT HEAD/NECK Final Resul t * XR RIBS 3 OR MORE VIEWS WITH PA CHEST (LEFT) (04/18/2025 11:44 AM EDT) Anatomical Region Laterality Modality Chest Computed Radiogr aphy 04/18/2025 12:4 3 PM EDT Impressions 04/18/2025 12:45 PM EDT No displaced rib fracture. Narrative 04/18/2025 12:45 PM EDT XR RIBS 3 OR MORE VIEWS WITH PA CHEST (LEFT) Referring clinician's provided indication for this examination in [facility]: Trauma COMPARISON: XR CHEST PA AND LATERAL 2 VIEWS FINDINGS: No displaced rib fracture. PA evaluation of the chest demonstrates no focal consolidation, pleural effusion, pulmonary edema, or pneumothorax. Cardiomediastinal silhouette is normal. Procedure Note Celso Morrison MD, MPH - 04/18/2025 XR RIBS 3 OR MORE VIEWS WITH PA CHEST (LEFT) Referring clinician's provided indication for this examination in [facility]:Trauma COMPARISON: XR CHEST PA AND LATERAL 2 VIEWS FINDINGS: No displaced rib fracture. PA evaluation of the chest demonstrates no focal consolidation, pleuraleffusion, pulmonary edema, or pneumothorax. Cardiomediastinal silhouetteis normal. IMPRESSION: No displaced rib fracture. us Robyn Blas PA-C IMG XR CHEST Final Result * XR HAND 3 OR MORE VIEWS (LEFT) (04/18/2025 11:44 AM EDT) Anatomical Region Laterality Modality Hand Left Computed Radiogr aphy 04/18/2025 12:4 2 PM EDT Impressions 04/18/2025 12:43 PM EDT No fracture or dislocation. Narrative 04/18/2025 12:43 PM EDT XR HAND 3 OR MORE VIEWS (LEFT) Referring clinician's provided indication for this examination in Epic: Trauma COMPARISON: None FINDINGS: No fracture. Normal alignment. Scattered degenerative changes in the hand and wrist. No soft tissue swelling. Procedure Note Celso Morrison MD, MPH - 04/18/2025 XR HAND 3 OR MORE VIEWS (LEFT) Referring clinician's provided indication for this examination in Epic:Trauma COMPARISON: None FINDINGS: No fracture. Normal alignment. Scattered degenerative changes in the handand wrist. No soft tissue swelling. IMPRESSION: No fracture or dislocation. Robyn Blas PA-C IMG XR UPPER EXTREMITY Final Result * XR SHOULDER 2 VIEWS (LEFT) (04/18/2025 11:43 AM EDT) Anatomical Region Laterality Modality Shoulder Left Computed Radiogr aphy 04/18/2025 12:3 3 PM EDT Impressions 04/18/2025 12:48 PM EDT No acute fracture or malalignment. Degenerative changes as above. ATTESTATION: I, Wilfred Santos as teaching physician, have reviewed the images for this case and if necessary edited the report originally created by Nomi Brizuela. Narrative 04/18/2025 12:48 PM EDT XR SHOULDER 2 OR MORE VIEWS (LEFT) Referring clinician's provided indication for this examination in Epic: Pain COMPARISON: None. FINDINGS: No acute fracture. Normal glenohumeral alignment with mild degenerative changes including osteophytes along the inferior joint. Normal acromioclavicular alignment with moderate degenerative changes. No significant soft tissue swelling. The visualized left lung is clear. Procedure Note Wilfred Santos MD - 04/18/2025 XR SHOULDER 2 OR MORE VIEWS (LEFT) Referring clinician's provided indication for this examination in Epic:Pain COMPARISON: None. FINDINGS: No acute fracture. Normal glenohumeral alignment with mild degenerativechanges including osteophytes along the inferior joint. Normalacromioclavicular alignment with moderate degenerative changes. Nosignificant soft tissue swelling. The visualized left lung is clear. IMPRESSION: No acute fracture or malalignment. Degenerative changes as above. ATTESTATION: I, Wilfred Santos as teaching physician, have reviewed theimages for this case and if necessary edited the report originally createdby Nomi Brizuela. us Robyn Blas PA-C IMG XR UPPER EXTREMITY Final Result * XR FEMUR (RIGHT) 2 VIEWS (04/13/2025 10:00 AM EDT) Anatomical Region Laterality Modality Thigh Right Computed Radiogr aphy 04/14/2025 12:4 1 AM EDT Impressions 04/14/2025 12:44 AM EDT No acute fracture. Vague irregular sclerosis of the distal femur. RECOMMENDATION: If PSMA PET CT is to be performed, consider extending to the knees. Alternatively, consider MR of the femur. Narrative 04/14/2025 12:44 AM EDT XR FEMUR 2 OR MORE VIEWS (RIGHT) Referring clinician's provided indication for this examination in Epic: Pain COMPARISON: CT ABDOMEN/PELVIS WITH CONTRAST FINDINGS: Bones demineralized. There is vague irregular sclerosis of the distal femur, most pronounced in the medial femoral condyle. There is mild joint space narrowing with marginal spurring at the visualized hip. Mild tricompartmental knee joint space narrowing is present. There is distal quadriceps and proximal patellar enthesopathy at the respective patellar poles. Surgical changes from prostatectomy are partially seen in the pelvis. Procedure Note Yamile Holly MD - 04/14/2025 XR FEMUR 2 OR MORE VIEWS (RIGHT) Referring clinician's provided indication for this examination in Epic:Pain COMPARISON: CT ABDOMEN/PELVIS WITH CONTRAST FINDINGS: Bones demineralized. There is vague irregular sclerosis of the distalfemur, most pronounced in the medial femoral condyle. There is mild joint space narrowing with marginal spurring at thevisualized hip. Mild tricompartmental knee joint space narrowing ispresent. There is distal quadriceps and proximal patellar enthesopathy atthe respective patellar poles. Surgical changes from prostatectomy are partially seen in the pelvis. IMPRESSION: No acute fracture. Vague irregular sclerosis of the distal femur. RECOMMENDATION: If PSMA PET CT is to be performed, consider extending to the knees.Alternatively, consider MR of the femur. us Kelsie Pack FLOORHAND IMG XR LOWER EXTREMITY Final Res ult * Lipase (04/12/2025 10:45 AM EDT) Only the most recent of2 resultswithin the time period is included. LIPASE 24 16 - 63 U/L [facility] Blood 04/12/2025 10:4 5 AM EDT 04/12/2025 10:50 AM EDT [facility] LAB BLOOD ORDERABLES Final Result Performing Organization Address City/[facility]/ZIP Co de Phone Number [address] [address] * (ABNORMAL) Amylase (04/12/2025 10:45 AM EDT) AMYLASE 109(H) 28 - 100 U/L [facility] Blood 04/12/2025 10:4 5 AM EDT 04/12/2025 10:50 AM EDT [email or web address] LAB BLOOD ORDERABLES Final Result Performing Organization Address City/[facility]/ZIP Co de Phone Number [address] [address] * Phosphorus (02/23/2025 8:15 AM EDT) Only the most recent of15 resultswithin the time period is included. PHOSPHORUS 4.0 2.4 - 4.3 mg/dL [facility] Blood 02/23/2025 8:15 AM EDT 02/23/2025 8:31 AM EDT Tawanda Badillo PA-C LAB BLOOD ORDERABLES Final Result [facility] [address] [place] [id number] * Rad Onc A[facility] Session Summary (02/23/2025 6:55 AM EDT) Course ID [id number] [facility] Course Intent Palliative [facility] Course Start Date 07/14/2024 8:22 AM [facility] Course First Treatment Date 02/19/2025 3:51 PM [facility] Course Last Treatment Date 02/23/2025 6:54 AM [facility] Course Elapsed Days 4 [facility] Plan ID [id number] [facility] Plan Fractions Treated to Date 5 [facility] Plan Total Fractions Prescribed 5 [facility] Plan Prescribed Dose Per Fraction 4 Gy [facility] Plan Total Prescribed Dose 2000 cGy [facility] Plan Primary Reference Point [id number] [facility] Reference Point ID [id number] [facility] ONCOLOGY Reference Point Dosage Given to Date [id number] Gy [facility] Reference Point Session Dosage Given [id number] Gy [facility] 02/23/2025 6:55 AM EDT us Conversion Provider Not In Sys RADIATION ONCOLOG Y ORDERABLES Final Result [facility] * Rad Onc [facility] Session Summary (02/22/2025 6:54 AM EDT) Course ID C1 [facility] Course Intent Palliative [facility] Course Start Date 07/14/2024 8:22 AM [facility] Course First Treatment Date 02/19/2025 3:51 PM [facility] Course Last Treatment Date 02/22/2025 6:54 AM [facility] Course Elapsed Days 3 [facility] Plan ID [id number] [facility] Plan Fractions Treated to Date 4 [facility] Plan Total Fractions Prescribed 5 [facility] Plan Prescribed Dose Per Fraction 4 Gy [facility] Plan Total Prescribed Dose 2000 cGy [facility] Plan Primary Reference Point [id number] [facility] Reference Point ID [id number] [facility] Reference Point Dosage Given to Date [phone] Gy [facility]COL[facility] Reference Point Session Dosage Given [phone] Gy [facility] 02/22/2025 6:54 AM EDT us Conversion Provider Not In Sys RADIATION ONCOLOG Y ORDERABLES Final Result [facility] * Rad Onc Aria Session Summary (02/21/2025 9:06 AM EDT) Course ID C1 [facility] Course Intent Palliative [facility] Course Start Date 07/14/2024 8:22 AM [facility] Course First Treatment Date 02/19/2025 3:51 PM [facility] Course Last Treatment Date 02/21/2025 9:06 AM [facility] Course Elapsed Days 2 [facility] Plan ID [id number] [facility] Plan Fractions Treated to Date 3 [facility] Plan Total Fractions Prescribed 5 [facility] Plan Prescribed Dose Per Fraction 4 Gy [facility] Plan Total Prescribed Dose 2000 cGy [facility] Plan Primary Reference Point [id number] [facility] Reference Point ID [id number] [facility] Reference Point Dosage Given to Date [phone] Gy [facility] Reference Point Session Dosage Given [phone] Gy [facility] 02/21/2025 9:06 AM EDT us Conversion Provider Not In Sys RADIATION ONCOLOG Y ORDERABLES Final Result [facility] * Rad Onc [facility]ria Session Summary (02/20/2025 7:41 AM EDT) Course ID C1 [facility] Course Intent Palliative [facility] Course Start Date 07/14/2024 8:22 AM [facility] Course First Treatment Date 02/19/2025 3:51 PM [facility] Course Last Treatment Date 02/20/2025 7:40 AM [facility] Course Elapsed Days 1 [facility] Plan ID [id number] [facility] Plan Fractions Treated to Date 2 [facility] Plan Total Fractions Prescribed 5 [facility] Plan Prescribed Dose Per Fraction 4 Gy [facility] Plan Total Prescribed Dose 2000 cGy [facility] Plan Primary Reference Point [id number] [facility] Reference Point ID [id number] [facility] Reference Point Dosage Given to Date [id number] Gy [facility] Reference Point Session Dosage Given [id number] Gy [facility] 02/20/2025 7:41 AM EDT us Conversion Provider Not In Sys RADIATION ONCOLOG Y ORDERABLES Final Result Performing Organization Address City/State/[facility] Co de Phone Number [facility] * Rad Onc Aria Session Summary (02/19/2025 3:54 PM EDT) Course ID C1 [facility] Course Intent Palliative [facility] Course Start Date 07/14/2024 8:22 AM [facility] Course First Treatment Date 02/19/2025 3:51 PM [facility] Course Last Treatment Date 02/19/2025 3:54 PM [facility] Course Elapsed Days 0 [facility] Plan ID [id number] [facility] Plan Fractions Treated to Date 1 [facility] Plan Total Fractions Prescribed 5 [facility] Plan Prescribed Dose Per Fraction 4 Gy [facility] Plan Total Prescribed Dose 2000 cGy [facility] Plan Primary Reference Point [id number] [facility] Reference Point ID [id number] [facility]COL[facility] Reference Point Dosage Given to Date [id number] Gy [facility]COL[facility] Reference Point Session Dosage Given [phone] Gy [facility]COL[facility] 02/19/2025 3:54 PM EDT us Conversion Provider Not In Sys RADIATION ONCOLOG Y ORDERABLES Final Result [facility] ONCOL[facility] * XR ABDOMEN 1 VIEW (02/17/2025 5:33 PM EDT) Anatomical Region Laterality Modality Abdomen Computed Radiogr aphy 02/18/2025 7:43 AM EDT Impressions 02/18/2025 7:44 AM EDT No bowel dilatation. Narrative 02/18/2025 7:44 AM EDT XR ABDOMEN 1 VIEW Referring clinician's provided indication for this examination in [facility]: Nausea/vomiting; Pain COMPARISON: Correlation made with abdomen pelvis CT 02/14/2025. FINDINGS: Tubes/Lines: None Bowel: Enteric contrast in descending and sigmoid colon and rectum. No bowel dilatation. Bones/Soft Tissues: Surgical clips in prostatic bed. No destructive osseous lesions. Procedure Note Eva Sparks MD - 02/18/2025 XR ABDOMEN 1 VIEW Referring clinician's provided indication for this examination in Epic:Nausea/vomiting; Pain COMPARISON: Correlation made with abdomen pelvis CT 02/14/2025. FINDINGS: Tubes/Lines: None Bowel: Enteric contrast in descending and sigmoid colon and rectum. Nobowel dilatation. Bones/Soft Tissues: Surgical clips in prostatic bed. No destructiveosseous lesions. IMPRESSION: No bowel dilatation. Kayode Henry PA-C IMG XR ABDOMEN Final Result * Zinc (02/15/2025 8:51 AM EDT) Zinc, S 82 60 - 106 mcg/dL [facility] [address] Comment: (NOTE) ADDITIONAL INFORMATION This test was developed and its performance characteristics determined by [facility] in a manner consistent with CLIA requirements. This test has not been cleared or approved by the U.S. Food and Drug Administration. Blood 02/15/2025 8:51 AM EDT 02/15/2025 9:34 AM EDT us Chanel Bush MD, MPH LAB BLOOD ORDERABLES F inal Result [facility] [address] [place] [address] * 25-OH vitamin D (02/15/2025 8:51 AM EDT) 25 OH VIT D (TOTAL) 24 20 - 50 ng/mL [facility] Blood 02/15/2025 8:51 AM EDT 02/15/2025 9:34 AM EDT us Chanel Bush MD, MPH LAB BLOOD ORDERABLES F inal Result Performing Organization Address [facility] Co de Phone Number [facility] [address] [place] [id number] * MRI THORACIC SPINE (NEURO) WITH AND WITHOUT CONTRAST (02/15/2025 7:45 AM EDT) Anatomical Region Laterality Modality T-spine Magnetic Resonan ce 02/15/2025 9:04 AM EDT Impressions 02/15/2025 9:16 AM EDT Radiation marrow changes. Again bony metastases T5-T9 with minimally increased right paraspinal component is similar epidural disease without cord compression as above. Schmorl's node at the endplates of L3-4 superior endplate of L2 unchanged from prior. Degenerative changes of the lumbar spine worse at the L3-4 level with central stenosis also stable. Narrative 02/15/2025 9:16 AM EDT MRI CERVICAL SPINE (NEURO) WITH AND WITHOUT CONTRAST, MRI LUMBAR SPINE (NEURO) WITH AND WITHOUT CONTRAST, MRI THORACIC SPINE (NEURO) WITH AND WITHOUT CONTRAST Referring clinician's provided indication for this examination in Epic: * Cord compression TECHNIQUE: MRI CERVICAL SPINE (NEURO) WITH AND WITHOUT CONTRAST, MRI LUMBAR SPINE (NEURO) WITH AND WITHOUT CONTRAST, MRI THORACIC SPINE (NEURO) WITH AND WITHOUT CONTRAST Multi-sequence, multi-planar MRI of the entire spine was performed with and without intravenous contrast. COMPARISON: Outside T-spine 01/31/2025 and lumbar spine 12/20/2024 FINDINGS: Spinal cord is of normal caliber signal throughout. Degenerative changes C-spine noted worse at the C3-4 to C5-6 levels. Again fatty radiation marrow changes at the lower thoracic and lumbar levels similar to prior. Bony metastases involving T5-T9 again noted with a right paraspinal component minimally increase in interim. There is also extension through right-sided neural foramina with epidural component overall similar compared prior exam from [id number] levels. No cord compression seen. After contrast subtle leptomeningeal enhancement of cauda equina likely related to treatment effects. Procedure Note Zen Rhoades MD - 02/15/2025 MRI CERVICAL SPINE (NEURO) WITH AND WITHOUT CONTRAST, MRI LUMBAR SPINE(NEURO) WITH AND WITHOUT CONTRAST, MRI THORACIC SPINE (NEURO) WITH ANDWITHOUT CONTRAST Referring clinician's provided indication for this examination in Epic: *Cord compression TECHNIQUE: MRI CERVICAL SPINE (NEURO) WITH AND WITHOUT CONTRAST, MRILUMBAR SPINE (NEURO) WITH AND WITHOUT CONTRAST, MRI THORACIC SPINE (NEURO)WITH AND WITHOUT CONTRAST Multi-sequence, multi-planar MRI of the entire spine was performed withand without intravenous contrast. COMPARISON: Outside T-spine 01/31/2025 and lumbar spine 12/20/2024 FINDINGS: Spinal cord is of normal caliber signal throughout. Degenerativechanges C-spine noted worse at the C3-4 to C5-6 levels. Again fatty radiation marrow changes at the lower thoracic and lumbarlevels similar to prior. Bony metastases involving T5-T9 again noted with a right paraspinalcomponent minimally increase in interim. There is also extension throughright-sided neural foramina with epidural component overall similarcompared prior exam from [id number] levels. No cord compression seen. After contrast subtle leptomeningeal enhancement of cauda equina likelyrelated to treatment effects. IMPRESSION: Radiation marrow changes. Again bony metastases T5-T9 with minimallyincreased right paraspinal component is similar epidural disease withoutcord compression as above. Schmorl's node at the endplates of L3-4 superior endplate of L2 unchangedfrom prior. Degenerative changes of the lumbar spine worse at the L3-4level with central stenosis also stable. us Tawanda Badillo PA-C IMG MR XSPECIALTY Final Res ult * MRI LUMBAR SPINE (NEURO) WITH AND WITHOUT CONTRAST (02/15/2025 7:45 AM EDT) Anatomical Region Laterality Modality L-spine Magnetic Resonan ce 02/15/2025 9:04 AM EDT Impressions 02/15/2025 9:16 AM EDT Radiation marrow changes. Again bony metastases T5-T9 with minimally increased right paraspinal component is similar epidural disease without cord compression as above. Schmorl's node at the endplates of L3-4 superior endplate of L2 unchanged from prior. Degenerative changes of the lumbar spine worse at the L3-4 level with central stenosis also stable. Narrative 02/15/2025 9:16 AM EDT MRI CERVICAL SPINE (NEURO) WITH AND WITHOUT CONTRAST, MRI LUMBAR SPINE (NEURO) WITH AND WITHOUT CONTRAST, MRI THORACIC SPINE (NEURO) WITH AND WITHOUT CONTRAST Referring clinician's provided indication for this examination in [facility]: * Cord compression TECHNIQUE: MRI CERVICAL SPINE (NEURO) WITH AND WITHOUT CONTRAST, MRI LUMBAR SPINE (NEURO) WITH AND WITHOUT CONTRAST, MRI THORACIC SPINE (NEURO) WITH AND WITHOUT CONTRAST Multi-sequence, multi-planar MRI of the entire spine was performed with and without intravenous contrast. COMPARISON: Outside T-spine 01/31/2025 and lumbar spine 12/20/2024 FINDINGS: Spinal cord is of normal caliber signal throughout. Degenerative changes C-spine noted worse at the C3-4 to C5-6 levels. Again fatty radiation marrow changes at the lower thoracic and lumbar levels similar to prior. Bony metastases involving T5-T9 again noted with a right paraspinal component minimally increase in interim. There is also extension through right-sided neural foramina with epidural component overall similar compared prior exam from [id number] levels. No cord compression seen. After contrast subtle leptomeningeal enhancement of cauda equina likely related to treatment effects. Procedure Note Zen Rhoades MD - 02/15/2025 MRI CERVICAL SPINE (NEURO) WITH AND WITHOUT CONTRAST, MRI LUMBAR SPINE(NEURO) WITH AND WITHOUT CONTRAST, MRI THORACIC SPINE (NEURO) WITH ANDWITHOUT CONTRAST Referring clinician's provided indication for this examination in [facility]: *Cord compression TECHNIQUE: MRI CERVICAL SPINE (NEURO) WITH AND WITHOUT CONTRAST, MRILUMBAR SPINE (NEURO) WITH AND WITHOUT CONTRAST, MRI THORACIC SPINE (NEURO)WITH AND WITHOUT CONTRAST Multi-sequence, multi-planar MRI of the entire spine was performed withand without intravenous contrast. COMPARISON: Outside T-spine 01/31/2025 and lumbar spine 12/20/2024 FINDINGS: Spinal cord is of normal caliber signal throughout. Degenerativechanges C-spine noted worse at the C3-4 to C5-6 levels. Again fatty radiation marrow changes at the lower thoracic and lumbarlevels similar to prior. Bony metastases involving T5-T9 again noted with a right paraspinalcomponent minimally increase in interim. There is also extension throughright-sided neural foramina with epidural component overall similarcompared prior exam from T6-9zyR4-7 levels. No cord compression seen. After contrast subtle leptomeningeal enhancement of cauda equina likelyrelated to treatment effects. IMPRESSION: Radiation marrow changes. Again bony metastases T5-T9 with minimallyincreased right paraspinal component is similar epidural disease withoutcord compression as above. Schmorl's node at the endplates of L3-4 superior endplate of L2 unchangedfrom prior. Degenerative changes of the lumbar spine worse at the L3-4level with central stenosis also stable. us Tawanda Badillo PA-C IMJennifer MR XSPECIALTY Final Res ult * MRI CERVICAL SPINE (NEURO) WITH AND WITHOUT CONTRAST (02/15/2025 7:45 AM EDT) Anatomical Region Laterality Modality C-spine Magnetic Resonan ce 02/15/2025 9:04 AM EDT Impressions 02/15/2025 9:16 AM EDT Radiation marrow changes. Again bony metastases T5-T9 with minimally increased right paraspinal component is similar epidural disease without cord compression as above. Schmorl's node at the endplates of L3-4 superior endplate of L2 unchanged from prior. Degenerative changes of the lumbar spine worse at the L3-4 level with central stenosis also stable. Narrative 02/15/2025 9:16 AM EDT MRI CERVICAL SPINE (NEURO) WITH AND WITHOUT CONTRAST, MRI LUMBAR SPINE (NEURO) WITH AND WITHOUT CONTRAST, MRI THORACIC SPINE (NEURO) WITH AND WITHOUT CONTRAST Referring clinician's provided indication for this examination in Epic: * Cord compression TECHNIQUE: MRI CERVICAL SPINE (NEURO) WITH AND WITHOUT CONTRAST, MRI LUMBAR SPINE (NEURO) WITH AND WITHOUT CONTRAST, MRI THORACIC SPINE (NEURO) WITH AND WITHOUT CONTRAST Multi-sequence, multi-planar MRI of the entire spine was performed with and without intravenous contrast. COMPARISON: Outside T-spine 01/31/2025 and lumbar spine 12/20/2024 FINDINGS: Spinal cord is of normal caliber signal throughout. Degenerative changes C-spine noted worse at the C3-4 to C5-6 levels. Again fatty radiation marrow changes at the lower thoracic and lumbar levels similar to prior. Bony metastases involving T5-T9 again noted with a right paraspinal component minimally increase in interim. There is also extension through right-sided neural foramina with epidural component overall similar compared prior exam from T6-2xxX2-1 levels. No cord compression seen. After contrast subtle leptomeningeal enhancement of cauda equina likely related to treatment effects. Procedure Note Zen Rhoades MD - 02/15/2025 MRI CERVICAL SPINE (NEURO) WITH AND WITHOUT CONTRAST, MRI LUMBAR SPINE(NEURO) WITH AND WITHOUT CONTRAST, MRI THORACIC SPINE (NEURO) WITH ANDWITHOUT CONTRAST Referring clinician's provided indication for this examination in [facility]: *Cord compression TECHNIQUE: MRI CERVICAL SPINE (NEURO) WITH AND WITHOUT CONTRAST, MRILUMBAR SPINE (NEURO) WITH AND WITHOUT CONTRAST, MRI THORACIC SPINE (NEURO)WITH AND WITHOUT CONTRAST Multi-sequence, multi-planar MRI of the entire spine was performed withand without intravenous contrast. COMPARISON: Outside T-spine 01/31/2025 and lumbar spine 12/20/2024 FINDINGS: Spinal cord is of normal caliber signal throughout. Degenerativechanges C-spine noted worse at the C3-4 to C5-6 levels. Again fatty radiation marrow changes at the lower thoracic and lumbarlevels similar to prior. Bony metastases involving T5-T9 again noted with a right paraspinalcomponent minimally increase in interim. There is also extension throughright-sided neural foramina with epidural component overall similarcompared prior exam from T6-9kkT6-5 levels. No cord compression seen. After contrast subtle leptomeningeal enhancement of cauda equina likelyrelated to treatment effects. IMPRESSION: Radiation marrow changes. Again bony metastases T5-T9 with minimallyincreased right paraspinal component is similar epidural disease withoutcord compression as above. Schmorl's node at the endplates of L3-4 superior endplate of L2 unchangedfrom prior. Degenerative changes of the lumbar spine worse at the L3-4level with central stenosis also stable. Tawanda Avila Justino MORELAND IMG MR XSPECIALTY Final Res ult * CT CHEST WITH CONTRAST (02/14/2025 10:16 PM EDT) Anatomical Region Laterality Modality Chest Computed Tomogra phy 02/15/2025 7:44 AM EDT Impressions 02/15/2025 2:12 PM EDT Similar to minimally increased T5-T9 paravertebral-epidural component of osseous metastatic disease. ATTESTATION: Karey Paulson, as teaching physician have reviewed the images, if any, for this patient's exam, and if necessary, have edited the report originally created by Jerrell Bailey. Narrative 02/15/2025 2:[address] CHEST WITH CONTRAST Referring clinician's provided indication for this examination in Epic: *Urologic cancer, surveillance; *Other Anomalies Or Syndromes; Known malignancy, restaging. TECHNIQUE: Multidetector CT of the chest was performed with intravenous contrast using tailored dose modulation techniques. COMPARISON: CT CHEST WITH CONTRAST FINDINGS: Devices/Tubes/Lines: None. Lungs: Unchanged mild biapical pleural-parenchymal scarring, including 13 x 8 mm left apical nodular thickening (4:59). No new or enlarging pulmonary nodules. Unchanged scattered sub-5 mm pulmonary nodules, including 4 mm left lower lobe nodule (3:31). No focal consolidation. Mild atelectasis in both lower lobes. Central airways are patent. Pleura: No pleural effusion or pneumothorax. Unchanged right posteromedial pleural thickening adjacent to a destructive osseous metastasis, measuring up to 1.3 cm thickness (2:55). Mediastinum: Heart is normal in size. No pericardial effusion. Mild amount of coronary calcifications. Lymph Nodes: No enlarged supraclavicular, axillary, mediastinal, or hilar lymph nodes. Upper Abdomen: Please see concurrent abdominal CT for abdominal findings. Chest Wall: Similar symmetric gynecomastia. Bones: Unchanged predominantly sclerotic multifocal osseous lesions, such as: right posterior eighth rib (2:57), T7 and T8 vertebral bodies and posterior elements (902:68). Similar soft tissue component centered on the right T7 transverse process, measuring approximately 6.3 x 3.5 cm (2:53). No new suspicious lytic or blastic lesions. Diffuse osteopenia. Multilevel degenerative changes of the imaged spine with DISH. Procedure Note Karey Garcia MD, MPH - 02/15/2025 CT CHEST WITH CONTRAST Referring clinician's provided indication for this examination in [facility]:*Urologic cancer, surveillance; *Other Anomalies Or Syndromes; Knownmalignancy, restaging. TECHNIQUE: Multidetector CT of the chest was performed with intravenouscontrast using tailored dose modulation techniques. COMPARISON: CT CHEST WITH CONTRAST FINDINGS: Devices/Tubes/Lines: None. Lungs: Unchanged mild biapical pleural-parenchymal scarring, including 13x 8 mm left apical nodular thickening (4:59). No new or enlargingpulmonary nodules. Unchanged scattered sub-5 mm pulmonary nodules,including 4 mm left lower lobe nodule (3:31). No focal consolidation. Mildatelectasis in both lower lobes. Central airways are patent. Pleura: No pleural effusion or pneumothorax. Unchanged right posteromedialpleural thickening adjacent to a destructive osseous metastasis, measuringup to 1.3 cm thickness (2:55). Mediastinum: Heart is normal in size. No pericardial effusion. Mild amountof coronary calcifications. Lymph Nodes: No enlarged supraclavicular, axillary, mediastinal, or hilarlymph nodes. Upper Abdomen: Please see concurrent abdominal CT for abdominalfindings. Chest Wall: Similar symmetric gynecomastia. Bones: Unchanged predominantly sclerotic multifocal osseous lesions, suchas: right posterior eighth rib (2:57), T7 and T8 vertebral bodies andposterior elements (902:68). Similar soft tissue component centered on theright T7 transverse process, measuring approximately 6.3 x 3.5 cm (2:53).No new suspicious lytic or blastic lesions. Diffuse osteopenia. Multileveldegenerative changes of the imaged spine with DISH. IMPRESSION: Similar to minimally increased T5-T9 paravertebral-epidural component ofosseous metastatic disease. ATTESTATION: I, Karey Garcia, as teaching physician have reviewed theimages, if any, for this patient's exam, and if necessary, have edited thereport originally created by Jerrell Bailey. us Tawanda Badillo PA-C IMG CT CHEST Final Resul t * CT ABDOMEN/PELVIS WITH CONTRAST (02/14/2025 10:16 PM EDT) Anatomical Region Laterality Modality Abdomen, Pelvis Computed Tomogra phy 02/15/2025 8:46 AM EDT Impressions 02/15/2025 9:25 AM EDT No evidence of metastatic disease in abdomen or pelvis. ATTESTATION: IEva, as teaching physician have reviewed the images, if any, for this patient's exam, and if necessary, have edited the report originally created by Delmi Kelley. Narrative 02/15/2025 9:[address] ABDOMEN/PELVIS WITH CONTRAST Referring clinician's provided indication for this examination in Epic: *Other Anomalies Or Syndromes; Known malignancy, restaging. 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 TECHNIQUE: Multidetector-row CT of the abdomen and pelvis was performed after administration of intravenous contrast using tailored dose modulation techniques. Images were reconstructed in the axial, coronal, and sagittal planes. COMPARISON: CT ABDOMEN/PELVIS WITH CONTRAST ; NM PET CT PROSTATE CANCER IMAGING FINDINGS: Lower Chest: CT chest from the same day is reported separately. Liver: Normal. No focal lesions. Biliary: Normal. No biliary ductal dilatation. Spleen: Normal. No splenomegaly or focal lesions. Pancreas: Diffuse fatty infiltration. No masses or ductal dilatation. Adrenal Glands: Normal. No nodules. Kidneys/Ureters: Normal. No solid masses, stones, or hydronephrosis. Bowel: No distention or wall thickening. Colonic diverticulosis. Peritoneum/Retroperitoneum: Normal. No masses, pneumoperitoneum, or fluid. Lymph Nodes: Normal. No lymphadenopathy. Pelvic Organs/Bladder: Post radical prostatectomy. No mass. Vessels: No abdominal aortic aneurysm. Aortic atherosclerosis. Bones/Soft Tissues: No destructive osseous lesions. Degenerative changes of the spine with calcification in anterior longitudinal ligament in lower thoracic spine extending to L1. Diffuse demineralization of axial skeleton. Partial fusion of both sacroiliac joints. Surgical changes in anterior pelvic wall. Locules of air in left anterior abdominal wall, likely secondary to injections. Tiny fat-containing umbilical hernia. Procedure Note Eva Sparks MD - 02/15/2025 CT ABDOMEN/PELVIS WITH CONTRAST Referring clinician's provided indication for this examination in Epic:*Other Anomalies Or Syndromes; Known malignancy, restaging. Review of the Electronic Medical Record reveals an additional history of:Metastatic prostate cancer to the spine currently onLupron/Darolutamide. TECHNIQUE: Multidetector-row CT of the abdomen and pelvis was performedafter administration of intravenous contrast using tailored dosemodulation techniques. Images were reconstructed in the axial, coronal,and sagittal planes. COMPARISON: CT ABDOMEN/PELVIS WITH CONTRAST ; NM PET CTPROSTATE CANCER IMAGING FINDINGS: Lower Chest: CT chest from the same day is reported separately. Liver: Normal. No focal lesions. Biliary: Normal. No biliary ductal dilatation. Spleen: Normal. No splenomegaly or focal lesions. Pancreas: Diffuse fatty infiltration. No masses or ductal dilatation. Adrenal Glands: Normal. No nodules. Kidneys/Ureters: Normal. No solid masses, stones, or hydronephrosis. Bowel: No distention or wall thickening. Colonic diverticulosis. Peritoneum/Retroperitoneum: Normal. No masses, pneumoperitoneum, orfluid. Lymph Nodes: Normal. No lymphadenopathy. Pelvic Organs/Bladder: Post radical prostatectomy. No mass. Vessels: No abdominal aortic aneurysm. Aortic atherosclerosis. Bones/Soft Tissues: No destructive osseous lesions. Degenerative changesof the spine with calcification in anterior longitudinal ligament in lowerthoracic spine extending to L1. Diffuse demineralization of axialskeleton. Partial fusion of both sacroiliac joints. Surgical changes inanterior pelvic wall. Locules of air in left anterior abdominal wall,likely secondary to injections. Tiny fat-containing umbilical hernia. IMPRESSION: No evidence of metastatic disease in abdomen or pelvis. ATTESTATION: Eva Paulson, as teaching physician have reviewed theimages, if any, for this patient's exam, and if necessary, have edited thereport originally created by Delmi Kelley. us Tawanda Badillo PA-C IMG CT ABD/PELVIS Final Res ult * PTT (02/14/2025 6:33 AM EDT) APTT 29.2 24.0 - 37.5 sec [facility] Comment:Emicizumab (Hemlibra ) treatment can result in falsely lowered aPTT test results. Blood 02/14/2025 6:33 AM EDT 02/14/2025 7:07 AM EDT Orin Armenta MD LAB BLOOD ORDERABLES Final Re sult Performing Organization Address [facility] Co de Phone Number [facility] [address] [place] [address] * PT-INR (02/14/2025 6:33 AM EDT) Only the most recent of4 resultswithin the time period is included. PT 12.8 10.0 - 13.0 sec [facility] INR 1.1 0.9 - 1.1 [facility] Blood 02/14/2025 6:33 AM EDT 02/14/2025 7:07 AM EDT Orin Armenta MD LAB BLOOD ORDERABLES Final Re sult Performing Organization Address [facility] Co de Phone Number [facility] [address] [place] [phone] * MRSA Nasal Screen (02/14/2025 5:50 AM EDT) Special Requests None 02/14/2025 1:40 AM EDT [facility] MRSA Nasal Culture NO METHICILLIN RESISTANT STAPHYLOCOCCUS AUREUS ISOLATED 02/15/2025 12:03 PM EDT [facility] Other (Nasal) 02/14/2025 5:5 0 AM EDT 02/14/2025 12:09 PM EDT Orin Armenta MD MICROBIOLOGY - GENERAL ORDERA BLES Final Result Performing Organization Address [facility] Co de Phone Number [facility] [address] [place] [address] * Vancomycin Resistant Enterococci (VRE), Rectal Screen (02/14/2025 5:50 AM EDT) Special Requests None 02/14/2025 1:40 AM EDT [facility] VRE Rectal Culture NO VANCOMYCIN RESISTANT ENTEROCOCCI ISOLATED 02/15/2025 12:01 PM EDT [facility] Other (Rectal) 02/14/2025 5: 50 AM EDT 02/14/2025 12:01 PM EDT us Orin Armenta MD MICROBIOLOGY - GENERAL ORDERA BLES Final Result [facility] [address] [place] [address] * (ABNORMAL) CBC (02/10/2025 6:07 AM EDT) Only the most recent of3 resultswithin the time period is included. WBC 5.50 4.00 - 11.00 K/uL [facility] RBC 3.49(L) 4.50 - 5.90 M/uL [facility] HGB 10.5(L) 13.5 - 17.5 g/dL [facility] HCT 32.7(L) 41.0 - 53.0 % [facility] PLT 238 150 - 450 K/uL [facility] MCV 93.7 80.0 - 100.0 fL [facility] MCH 30.1 27.0 - 31.0 pg [facility] MCHC 32.1 32.0 - 36.0 g/dL [facility] RDW 13.5 11.5 - 14.5 % [facility] MPV 9.2 8.4 - 12.0 fL [facility] NRBC 0.00 0.00 /100 WBCs [facility] ABSOLUTE NRBC 0.00 0.00 K/uL [facility] Blood 02/10/2025 6:07 AM EDT 02/10/2025 6:11 AM EDT us Gadiel Maynard PA-C LAB BLOOD ORDERABLES Fi nal Result Performing Organization Address City/[facility]/ZIP Co de Phone Number [address] [address] * Triglycerides (02/10/2025 6:07 AM EDT) TRIGLYCERIDES 128 30 - 160 mg/dL [facility] Blood 02/10/2025 6:07 AM EDT 02/10/2025 6:11 AM EDT Gadiel Maynard PA-C LAB BLOOD ORDERABLES Fi nal Result Performing Organization Address [facility] Co de Phone Number [address] [address] * ECG 12-LEAD (02/09/2025 6:39 AM EDT) Only the most recent of2 resultswithin the time period is included. Ventricular Rate EKG/MIN 65 BPM [facility] Atrial Rate 65 BPM [facility] MI Interval 150 ms [facility] QRS Duration 88 ms [facility] QT Interval 470 ms [facility] QTC Interval 488 ms [facility] P Rugby 76 degrees [facility] R Wave [place] 54 degrees [facility] T Wave [place] 60 degrees [facility] 02/09/2025 6:39 AM EDT 02/09/2025 12:27 PM EDT Narrative [facility] - 02/09/2025 12:28 PM EDT Sinus rhythm with Premature supraventricular complexes Prolonged QT Abnormal ECG When compared with ECG of 08-Feb-2025 14:26, Fusion complexes are no longer Present Premature ventricular complexes are no longer Present Premature supraventricular complexes are now Present Confirmed by Hank Traylor ([id number]) on 02/09/2025 12:27:58 PM Gadiel Maynard PA-C ECG ORDERABLES Final R esult Performing Organization Address [facility] Co de Phone Number [facility] * (ABNORMAL) Prealbumin (02/09/2025 5:44 AM EDT) PREALBUMIN 12(L) 20 - 40 mg/dL [facility] Blood 02/09/2025 5:44 AM EDT 02/09/2025 6:18 AM EDT us Gadiel Maynard PA-C LAB BLOOD ORDERABLES Fi nal Result [address] [address] * XR CHEST PA AND LATERAL 2 VIEWS (02/08/2025 11:49 AM EDT) Anatomical Region Laterality Modality Chest Computed Radiogr aphy 02/08/2025 1:05 PM EDT Impressions 02/08/2025 1:06 PM EDT No acute abnormality. Narrative 02/08/2025 1:06 PM EDT XR CHEST PA AND LATERAL 2 VIEWS Referring clinician's provided indication for this examination in [facility]: Pain COMPARISON: XR CHEST OUTSIDE (NO INTERPRETATION) FINDINGS: Devices/Tubes/Lines: None. Lungs: No focal consolidation or pulmonary edema. Pleura: No pleural effusion or pneumothorax. Heart/Mediastinum: Normal heart and mediastinum. Bones/Soft Tissues: Thoracic spine degenerative changes with DISH. Acromioclavicular joint degenerative changes. Procedure Note Alejandro Jauregui MD, PhD - 02/08/2025 XR CHEST PA AND LATERAL 2 VIEWS Referring clinician's provided indication for this examination in [facility]:Pain COMPARISON: XR CHEST OUTSIDE (NO INTERPRETATION) FINDINGS: Devices/Tubes/Lines: None. Lungs: No focal consolidation or pulmonary edema. Pleura: No pleural effusion or pneumothorax. Heart/Mediastinum: Normal heart and mediastinum. Bones/Soft Tissues: Thoracic spine degenerative changes with DISH.Acromioclavicular joint degenerative changes. IMPRESSION: No acute abnormality. 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 Damian shah Healthcare Proxy 01/04/2025 Poppy Veliz healthcare proxy * Full Code (Latest Code Status on File) Date Activated Date Inactivated Comments 02/13/2025 10:15 PM Question Answer Comments Code Status Confirmed With: Patient * Full Code Date Activated Date Inactivated Comments 02/08/2025 1:01 PM 02/13/2025 10:15 PM Question Answer Comments Code Status Confirmed With: Patient Code Status Communicated To: Inpatient Attending Healthcare Agents on File Name Relationship Healthcare Agent Relationshi p Communication Hina Araujo Sister Alternate Hea lthcare Agent (Proxy form on file) Poppy Veliz Daughter .Primary Health Care Agent (Proxy form on file) Care Teams Assistant Professor Of Archaeology Relationship Specialty Start Date End Date Gadiel Tripp PA [address] [place] [address] PCP - General Physician Seal Delivery Vehicle Officer 12/19/24 Wilfred Maynard MD [address] [place] [address] Referring Physician Internal Medicine 11/19/15 Vira Nur MD [address] [place] [address] [email or web address] Medical Oncology 04/16/23 Gadiel Tripp PA [address] [place] [address] Physician Seal Delivery Vehicle Officer 04/16/23 Wilfred Maynard MD [address] [place] [address] Referring Physician Medical Oncology 04/16/23 Leslie Coello RN [address] [place] [address] [email or web address] Primary Infusion Nurse 02/22/24 Scott Hooper MBBS [address] [place] [address] [email or web address] Medical Oncology 03/01/24 Additional Source Comments The information contained in this document represents components of the legal health record. It is not the complete legal health record.[facility]
--- OUTSIDE RECORDS SUMMARY | 2025-05-08 13:48 | XMS_ITS | Encounter Summary ---
Author Organization [facility] Address [address] [place] [address] [address] [place] [address] Phone Care Team Providers Care Rolloff Driver Name Role Phone Wilfred Maynard MD Unavailable [phone] Vira Nur MD Unavailable [phone] Gadiel Tripp Unavailable [phone] Wilfred Maynard MD Unavailable [phone] Leslie Coello RN Unavailable Leslie [email or web address] Scott HooperBS Unavailable +[phone] Gadiel Tripp Primary Care Provider + Encounter Details Date Type Department Care Team (Late st Contact Info) Description 12/21/2024 Procedure Pass [facility], [facility] [address] [place] [address] Social History Tobacco Use Types Packs/Day Years [...] PM EDT Nutrition [facility] at [address] [address] Scott Hooper [address] [address] [email or web address] 05/28/2025 3:40 PM EDT Office Visit [facility] at [address] [address] Scott Hooper [address] [address] [email or web address] documented as of this encounter Visit Diagnoses Not on filedocumented in this encounter Care Teams Rolloff Driver Relationship Specialty Start Date End Date Gadiel Tripp PA [address] [place] [address] PCP - General Physician Mine Manager 12/19/24 Wilfred Maynard MD [address] [place] [address] Referring Physician Internal Medicine 11/19/15 Vira Nur MD [address] [place] [address] [email or web address] Medical Oncology 04/16/23 Gadiel Tripp PA [address] [place] [address] Physician Mine Manager 04/16/23 Wilfred Maynard MD [address] [place] [address] Referring Physician Medical Oncology 04/16/23 Leslie Coello RN [address] [facility] [place] [address] [email or web address] Primary Infusion Nurse 02/22/24 Scott Hooper MBBS [address] [facility] [place] [address] [email or web address] Medical Oncology 03/01/24 documented as of this encounter Additional Source Comments The information contained in this document represents components of the legal health record. It is not the complete legal health record.[facility]
--- OUTSIDE RECORDS SUMMARY | 2025-05-08 13:48 | XMS_ITS | Encounter Summary ---
Author Organization [facility] Address [address] [place] [address] [address] [place] [address] Phone Care Team Providers Care Director Of Supply Chain Name Role Phone Chirag River MD Primary Care Provider [phone] Wilfred Maynard MD Unavailable [phone] Vira Nur MD Unavailable [phone] Gadiel Tripp Unavailable [phone] Wilfred Maynard MD Unavailable [phone] Leslie Coello RN Unavailable Leslie [email or web address] Scott Hooper Unavailable [phone] Gadiel Tripp Primary Care Provider + Encounter Details Date Type Department Care Team (Late st Contact Info) Description 02/23/2024 Procedure Pass [facility], [address] [phone] Social History Tobacco Use Types Packs/Day Years [...] Info) Description 05/28/2025 3:20 PM EDT Nutrition [facility] at [address] [address] Scott Hooper [address] [address] [email or web address] 05/28/2025 3:40 PM EDT Office Visit [facility] at [address] [address] Scott Hooper [address] [address] [email or web address] documented as of this encounter Visit Diagnoses Not on filedocumented in this encounter Care Teams Director Of Supply Chain Relationship Specialty Start Date End Date Chirag River MD [address] [place] [address] PCP - General Internal Medicine 06/21/15 12/18/24 Gadiel Tripp PA [address] [place] [address] PCP - General Physician Medical Record Administrator 12/19/24 Wilfred Maynard MD [address] [place] [address] Referring Physician Internal Medicine 11/19/15 Vira Nur MD [address] [place] [address] [email or web address] Medical Oncology 04/16/23 Gadiel Tripp PA [address] [place] [address] Physician Medical Record Administrator 04/16/23 Wilfred Maynard MD [address] [place] [address] Referring Physician Medical Oncology 04/16/23 Leslie Coello RN [address] [place] [address] [email or web address] Primary Infusion Nurse 02/22/24 Scott Hooper MBBS [address] [place] [address] [email or web address] Medical Oncology 03/01/24 documented as of this encounter Additional Source Comments The information contained in this document represents components of the legal health record. It is not the complete legal health record.[facility]
--- OUTSIDE RECORDS SUMMARY | 2025-05-08 13:48 | XMS_ITS | Encounter Summary ---
Author Organization [facility] Address [address] [place] [address] Phone Care Team Providers Care Soil Tester Name Role Phone Wilfred Maynard MD Unavailable [phone] Vira Nur MD Unavailable [phone] Gadiel Tripp Unavailable [phone] Wilfred Maynard MD Unavailable [phone] Leslie Coello RN Unavailable Leslie [email or web address] Scott HooperBS Unavailable [phone] Gadiel Tripp Primary Care Provider + Encounter Details Date Type Department Care Team (Late st Contact Info) Description 01/04/2025 Procedure Pass [facility], Ct Scan - [facility] [address] [place] [address] Social History Tobacco Use Types Packs/Day Years [...] as food, clothing, or medical care? No 01/04/2025 In the past 12 months have y ou been in a relationship with a person who hurts, threatens, or tries to control you? No 01/04/2025 Are you denied basic needs s uch as food, clothing, or medical care? No 01/04/2025 In the past 12 months have y ou been in a relationship with a person who hurts, threatens, or tries to control you? No 01/04/2025 Sex and Gender Information Value Date Recorded Sex Assigned at Male 04/16/2023 5:28 PM EDT Legal Sex Male 7:12 PM EST Gender Identity Male 04/16/2023 5:28 PM EDT Sexual Orientation Straight 04/16/2023 5: 28 PM EDT documented as of this encounter Functional Status * Calculated C-SSRS Risk Score (Lifetime/Recent) Answer Date of Assessment Author No Risk Indicated 01/04/2025 10:36 AM EDT Randee Lewis RN * Pacific Suicide Severity Rating Scale (Screener/Recent Self-Report) Question Answer Date of Assessment Author 1. Wish to be (Past 1 Month) No 025 10:36 AM EDT Randee Lewis RN 2. Non-Specific Active Suici sly Thoughts (Past 1 Month) No 01/04/2025 10:36 AM EDT Randee Lewis RN 6. Suicidal Behavior (Lifetime) No 10:36 AM EDT Randee Lewis RN documented as of this encounter Plan of Treatment Upcoming Encounters Date Type Department Care Team (Late st Contact Info) Description 05/28/2025 3:20 PM EDT Nutrition [facility] at [address] [address] Scott Hooper MBBS [address] [place] [address] [email or web address] 05/28/2025 3:40 PM EDT Office Visit [facility] at [address] [address] Scott Hooper MBBS [address] [place] [address] [email or web address] documented as of this encounter Visit Diagnoses Not on filedocumented in this encounter Care Teams Soil Tester Relationship Specialty Start Date End Date Gadiel Tripp PA [address] [place] [address] PCP - General Physician Manuscript Editor 12/19/24 Wilfred Maynard MD [address] [place] [address] Referring Physician Internal Medicine 11/19/15 Vira Nur MD [address] [place] [address] [email or web address] Medical Oncology 04/16/23 Gadiel Tripp PA [address] [place] [address] Physician Manuscript Editor 04/16/23 Wilfred Maynard MD [address] [place] [address] Referring Physician Medical Oncology 04/16/23 Leslie Coello RN [address] [place] [address] [email or web address] Primary Infusion Nurse 02/22/24 Scott Hooper MBBS [address] [place] [address] [email or web address] Medical Oncology 03/01/24 documented as of this encounter Additional Source Comments The information contained in this document represents components of the legal health record. It is not the complete legal health record.[facility]
--- OUTSIDE RECORDS SUMMARY | 2025-05-08 13:48 | XMS_ITS | Encounter Summary ---
Author Organization [facility] Address [address] [place] [address] Phone Care Team Providers Care Laborer Cheesemaking Name Role Phone Wilfred Maynard MD Unavailable [phone] Vira Nur MD Unavailable [phone] Gadiel Tripp Unavailable [phone] Wilfred Maynard MD Unavailable [phone] Leslie Coello RN Unavailable Leslie [email or web address] Scott HooperBS Unavailable [phone] Gadiel Tripp Primary Care Provider + Encounter Details Date Type Department Care Team (Late st Contact Info) Description 04/18/2025 Procedure Pass [facility], Ct Scan - [facility] [address] [place] [address] Social History Tobacco Use Types Packs/Day Years [...] 10:44 AM EDT Cassi Vieyra, FLAKITO * Weber Suicide Severity Rating Scale (Screener/Recent Self-Report) Question [...] Info) Description 05/28/2025 3:20 PM EDT Nutrition [facility] at [address] [address] Scott Hooper MBBS [address] [place] [address] [email or web address] 05/28/2025 3:40 PM EDT Office Visit [facility] at [address] [address] Scott Hooper MBBS [address] [place] [address] [email or web address] documented as of this encounter Visit Diagnoses Not on filedocumented in this encounter Care Teams Laborer Cheesemaking Relationship Specialty Start Date End Date Gadiel Tripp PA [address] [place] [address] PCP - General Physician Home Care Administrator 12/19/24 Wilfred Maynard MD [address] [place] [address] Referring Physician Internal Medicine 11/19/15 Vira Nur MD [address] [place] [address] [email or web address] Medical Oncology 04/16/23 Gadiel Tripp PA [address] [place] [address] Physician Home Care Administrator 04/16/23 Wilfred Maynard MD [address] [place] [address] Referring Physician Medical Oncology 04/16/23 Leslie Coello, RN [address] [place] [address] [email or web address] Primary Infusion Nurse 02/22/24 Scott Hooper MBBS [address] [place] [address] [email or web address] Medical Oncology 03/01/24 documented as of this encounter Additional Source Comments The information contained in this document represents components of the legal health record. It is not the complete legal health record.[facility]
--- OUTSIDE RECORDS SUMMARY | 2025-05-08 13:48 | XMS_ITS | Encounter Summary ---
Author Organization [facility] Address [address] [place] [address] [address] [place] [address] Phone Care Team Providers Care Mortar Mixer Name Role Phone Chirag River MD Primary Care Provider [phone] Wilfred Maynard MD Unavailable [phone] Vira Nur MD Unavailable [phone] Gadiel Tripp Unavailable [phone] Wilfred Maynard MD Unavailable [phone] Leslie Coello RN Unavailable Leslie [email or web address] Scott Hooper Unavailable [phone] Gadiel Tripp Primary Care Provider + Encounter Details Date Type Department Care Team (Late st Contact Info) Description 12/15/2024 Procedure Pass [facility], [address] [phone] Social History Tobacco Use Types Packs/Day Years [...] Info) Description 05/28/2025 3:20 PM EDT Nutrition [facility] at [address] [address] Scott Hooper [address] [address] [email or web address] 05/28/2025 3:40 PM EDT Office Visit [facility] at [address] [address] Scott Hooper [address] [address] [email or web address] documented as of this encounter Visit Diagnoses Not on filedocumented in this encounter Care Teams Mortar Mixer Relationship Specialty Start Date End Date Chirag River MD [address] [place] [address] PCP - General Internal Medicine 06/21/15 12/18/24 Gadiel Tripp PA [address] [place] [address] PCP - General Physician Snow Blower 12/19/24 Wilfred Maynard MD [address] [place] [address] Referring Physician Internal Medicine 11/19/15 Vira Nur MD [address] [place] [address] [email or web address] Medical [email or web address] 04/16/23 Gadiel Tripp PA [address] [place] [address] Physician Snow Blower 04/16/23 Wilfred Maynard MD [address] [place] [address] Referring Physician Medical Oncology 04/16/23 Leslie Coello RN [address] [place] [address] [email or web address] Primary Infusion Nurse 02/22/24 Scott Hooper MBBS [address] [place] [address] [email or web address] Medical Oncology 03/01/24 documented as of this encounter Additional Source Comments The information contained in this document represents components of the legal health record. It is not the complete legal health record.[facility]
== END 2025-05-08 12:01 | disposition home or self-care (01) ==
LOC: HO.HUSH 11:21
PROVIDERS: PCP Physician Assistant; Visit Provider Urology
DX: C61 Malignant neoplasm of prostate (principal); C79.51 Secondary malignant neoplasm of bone
CPT/HCPCS: 99213; G2211

== ENCOUNTER → 2025-05-08 11:21 | Outpatient (BNVA) | payer MEDICARE, MEDICAID, SELFPAY | PROVIDERS: PCP Physician Assistant; Visit Provider Urology | DX: C61 Malignant neoplasm of prostate (principal); C79.51 Secondary malignant neoplasm of bone | CPT/HCPCS: 99212 ==

== ENCOUNTER 2025-08-21 10:16 | Outpatient (AMB) | payer MEDICARE, MEDICAID, SELFPAY ==
--- OUTSIDE RECORDS SUMMARY | 2024-02-25 10:00 | XMS_ITS ---
Author Organization Wilfred Maynard III, MD Address [address] [facility] [place] [address] Care Team Providers Care Field Manager Name Role Phone PREETI HDEZ Primary Care Provider Unavailab Dr. Wilfred Marroquin III Unavailable Allergies Allergen (clinical drug ingredient) Drug/Non Drug Allergy documented on EMR Reaction Allergy Type Onset Date Status No Known Drug Allergy Unknown Drug Allergy Active Reason For Referral Reason Aggressive Prostate Cancer Treatment of Palliative per [facility] Palliative every 3 weeks for 6 cycles Diagnosis 1 Prostate cancer (C61 ) Referral Organization Wilfred Maynard III, MD Referring Provider First Name Wilfred Referring Provider Last Name Aleyda Referring Provider Speciality Internal M edicine Referred Provider Me angelo Natarajan Oncology Referred Provider Specialty Medical Onco logy General Notes Anna Tello 2023 04:39:57 PM EDT > Spoke with oncology they asked to send over the referral and all notes, imagining to their office to review and then schedule the patient. They are booking into middle of February and stated they are a small office and if they can be treated elsewhere sooner that would be better. Faxed note from Dr. Nur, MRI, CT, progress note and referral to Elisha Gallo Amber 02/29/2024 03:08:35 PM EDT > Received fax from [facility] patient is scheduled to be seen with Dr. Hooper on 03/16/24 @ 1pm. Patient is aware Referral Priority Routine Referral Appointment Date 03/16/2024 REASON FOR VISIT aggressive prostate cancer Medications Medication SIG (Take, Route, Frequency, Duration) Notes Start Date End Date Status amLODIPine Besylate 2.5 MG 1 tablet Orally Once a day Active oxyCODONE HCl 5 MG take 1 tablet by mouth every 6 hours Oral Active Vitamin D 25 MCG (1000 UT) 1 tablet Orally Once a day 01/20/2023 Active Omeprazole 10 MG 1 capsule 30 minutes before morning meal Orally Once a day Active Escitalopram Oxalate 10 MG TAKE 1 TABLET BY MOUTH DAILY Diagnosis Unavailable Oral for depression Active Social History Tobacco Use: Social History Observation Description Date Details (start date - stop date) Never Smoker NA - NA Sex Assigned At : Social History Observation Description Sex Assigned At Male Tobacco Use/Smoking Question Answer Notes Patient is a nonsmoker Additional Findings: Tobacco Non-User Aggressive non-smoker Vital Signs Temperature 98.1 degrees Fahrenheit 02/25/20 24 Blood pressure systolic 139 mm Hg 02/25/20 24 Blood pressure diastolic 73 mm Hg 024 Heart Rate 50 /min 02/25/2024 Height 74 in 02/25/2024 Weight 195 lbs 02/25/2024 BMI 25.03 kg/m2 02/25/2024 Encounters Encounter Location Date Provider Diagnosis Wilfred Maynard III, MD [address] [place] [address] [place] [id number] 02/25/2024 Wilfred Maynard Overweight E66.3 ; Prostate cancer C61 ; Benign prostatic hypertrophy N40.0 ; Osteopenia M85.80 ; Incontinence R32 ; Skin cancer, basal cell C44.91 and Reactive depression F32.9 Assessments Encounter Date Diagnosis (ICD Code) Assessment Notes Treatment Notes Treatment Clinical Notes 02/25/2024 Overweight (ICD-10 - E66.3) His weight is currently stable. Body mass index is 25. 02/25/2024 Prostate cancer (ICD-10 - C61) He is doing well controlled for many years with hormone deprivation. The disease has become aggressive. Dr. Nur at [facility] has kknown him formay years and recommended paclitaxel Q21 days for 6 cycles in addition to degarelix and darolutamide. . 02/25/2024 Benign prostatic hypertrophy (ICD-10 - N40.0) He rises from sleep once or twice a night to urinate. He is occasionally incontinent. We discussed lifestyle modifications way to reduce nocturia. 02/25/2024 Osteopenia (ICD-10 - M85.80) He will continue on his current regimen. 02/25/2024 Incontinence (ICD-10 - R32) He continues to have intermittent incontinence of urine. He has adapted to this and is unimpaired and daily living. 02/25/2024 Skin cancer, basal cell (ICD-10 - C44.91) There is no sign of any new skin cancer. 02/25/2024 Reactive depression (ICD-10 - F32.9) He will need to be restaged. We need to distinguish between agitated depression and progressive prostate cancer as a cause of the weight loss. I strongly recommended that he gave her. She primary care to receive treatment for his mental status heart ago to the hospital emergency room tomorrow morning and asked to see crisis. He will then see a mental health worker who can assess him. He has been coming to the office frequently without an appointment asking to see me. He has always been seen but is outside of the usual parameters of medical oncology and prostate cancer management. Plan Of Treatment Medication Medication Name Sig Start Date Stop Date Notes amLODIPine Besylate 2.5 MG 1 tablet Orally Once a day oxyCODONE HCl 5 MG take 1 tablet by tequila th every 6 hours Oral Vitamin D 25 MCG (1000 UT) 1 tablet Orally Once a day 01/20/2023 Omeprazole 10 MG 1 capsule 30 minutes before morning meal Orally Once a day Escitalopram Oxalate 10 MG TAKE 1 TABLET BY MOUTH DAILY Diagnosis Unavailable Oral for depression Referrals Referral Date Details 02/25/2024 02/25/2024, Aggressi ve Prostate Cancer Treatment of Palliative per [facility] Palliative every 3 weeks for 6 cycles, [facility] Appt Details Follow Up: 2 Weeks, Reason: OV Progress Notes * Justin BRICENODOB:[birth year] (68 yo M)Acc No.[id number]:02/25/2024 Progress Notes Patient: Nehal Justin clarke Provider: Rylie Maynard MD :1955 A ge:68 Y S ex:Male Date:02/25/2024 Address:[address] [place], [place] [id number] Pcp:PREETI HEDZ Subjective: * Chief Complaints: * A ggressive prostate cancer * HPI: C OVID-19 Screening: He has had a indolent chronic prostate cancer for over 20 years. He presented with metastatic disease in his right seventh rib, which has been radiated at [facility]. He was off hormone therapy recently when he developed progressive disease which now well. An MRI of the thorax on February 10, 2024 to have extensive metastatic disease in at T7 and T8 and T6 as well as the right eighth and ninth ribs. There was a 7 x 7 cm mass in the area with the face of the neural foramina from T6 59. He was seen by Dr. peoples of radiation therapy at [facility] to send him to [place] where he saw Ny eli of genitourinary medical oncology. He has recommended a darolutamide 300 mg bid, degarelix injections with leuprolide and 6 three week cycles of paclitaxel. She gave him a first dose of degarelix in [place]. He is being referred to medical oncology at [facility] As they are part of the part of [facility] and share the same electronic record and can communicate with [place] easily. Records are being forwarded. His pain is controlled. He does not appear to be secreting PSA. The thecal sac is indented but the spinal cord is not compressed. Questions H ave you experienced fever, chills, cough, sore throat, shortness of breath, difficulty breathing, muscle aches, loss of taste or smell? N o H ave you been exposed to the virus within the last 10 days? N o H ave you travelled internationally in the last 10 days? N o H ave you been exposed to COVID-19 in the past? N o * ROS: G eneral/Constitutional: pain R ight side of the thorax, otherwise only normal aches and pains. C hills d enies. F atigue a dmits. F ever d enies. ? E NT: Decreased hearing d enies. R espiratory: Cough d enies. C ardiovascular: Chest pain with exertion d enies. D yspnea on exertion?denies. S hortness of breath d enies. G astrointestinal: Constipation o ccasional. D ecreased appetite d enies. D iarrhea d enies. H e[place]burn d enies. N ausea d enies. R ectal bleeding d enies. V omiting d enies. H ematology: bruising d enies. p etechiae d enies. S wollen glands n one have been noted. G enitourinary: Frequent urination o nce a night. M usculoskeletal: Muscle aches d enies. P ainful joints d enies. S ciatica d enies. W eakness d enies. S kin: Itching d enies. R samira d enies. S kin lesion(s)?denies. N eurologic: Difficulty speaking d enies. D izziness d enies.?Headache d enies. L ow back pain d enies. P sychiatric: Depressed mood d enies. * Medical History: * Surgical History: b iopsy of prostate 2006radical prostatectomy 2007 * Hospitalization/Major Diagno stic Procedure: S hortness of breath 01/2020Shortness of breath 04/2020 * Family History: F ather: 81 yrs, natural causes, , alcoholism. M other: 76 yrs, congestive heart failure, arthritis. 3 brother(s) , 6 sister(s) . 1 daughter(s) - healthy. . A maternal uncle of prostate cancer at an elderly age. He had a niece who of gastric cancer at age 35. A sister of breast cancer at the age of 39. His father suffered from alcoholism. He is not aware of any other family history of mental illness or substance use disorder or addiction. * Social History: T obacco Use: T obacco Use/Smoking P atient is a n onsmoker A dditional Findings: Tobacco Non-User A ggressive non-smoker H e is single and working. He was born in [place], [place]. He does not drink or smoke. 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 He enjoys drumming. He has one daughter. * Medications: T akingoxyCODONE HCl 5 MG Tablet take 1 tablet by mouth every 6 hours Oral amLODIPine Besylate 2.5 MG Tablet 1 tablet Orally Once a dayOmeprazole 10 MG Capsule Delayed Release 1 capsule 30 minutes before morning meal Orally Once a dayVitamin D 25 MCG (1000 UT) Tablet 1 tablet Orally Once a dayEscitalopram Oxalate 10 MG Tablet TAKE 1 TABLET BY MOUTH DAILY Diagnosis Unavailable Oral , Notes: for depressionMedication List reviewed and reconciled with the patientTaking oxyCODONE HCl 5 MG Tablet take 1 tablet by mouth every 6 hours Oral Taking amLODIPine Besylate 2.5 MG Tablet 1 tablet Orally Once a dayTaking Omeprazole 10 MG Capsule Delayed Release 1 capsule 30 minutes before morning meal Orally Once a dayTaking Vitamin D 25 MCG (1000 UT) Tablet 1 tablet Orally Once a dayTaking Escitalopram Oxalate 10 MG Tablet TAKE 1 TABLET BY MOUTH DAILY Diagnosis Unavailable Oral , Notes: for depressionMedication List reviewed and reconciled with the patient * Allergies: N o Known Drug Allergyno[Allergies Verified] Objective: * Vitals: H t: 74, Wt:195, BMI:25.03, BP:139/73, HR:50, Temp:98.1, Ht-cm: 187.96, Wt-k.45. * P ast Orders: Lab:Prostate Specific Antige n * Order Date 01/25/2024 11/22/2023 08/25/2023 Prostate Specific Antigen 1.14 (Ref Range: <0.05-4.0 ng/mL) 0.70 (Ref Range: <0.05-4.0 ng/mL) 0.55 (Ref Range: <0.05-4.0 ng/mL) * Lab:Comprehensive Met. Panel * Order Date 01/25/2024 11/22/2023 08/25/2023 Sodium 141 (Ref Range: 135-145 mmol/L) 142 (Ref Range: 135-145 mmol/L) 140 (Ref Range: 135-145 mmol/L) Bilirubin Total 0.4 (Ref Range: 0.0-1.0 mg/dL) 0.3 (Ref Range: 0.0-1.0 mg/dL) 0.4 (Ref Range: 0.0-1.0 mg/dL) Aspartate Amino Transferase 16 (Ref Range: 5-37 U/L) 16 (Ref Range: 5-37 U/L) 16 (Ref Range: 5-37 U/L) Alanine Aminotransferase 17 (Ref Range: 0-40 U/L) 16 (Ref Range: 0-40 U/L) 15 (Ref Range: 0-40 U/L) Total Protein 7.8 (Ref Range: 6.5-8.0 g/dL) 7.6 (Ref Range: 6.5-8.0 g/dL) 7.6 (Ref Range: 6.5-8.0 g/dL) Albumin Level 4.2 (Ref Range: 3.5-5.0 g/dL) 4.1 (Ref Range: 3.5-5.0 g/dL) 4.1 (Ref Range: 3.5-5.0 g/dL) Alkaline Phosphatase 158 H (Ref Range: 39-117 U/L) 146 H (Ref Range: 39-117 U/L) 139 H (Ref Range: 39-117 U/L) Potassium 4.1 (Ref Range: 3.3-5.1 mmol/L) 3.6 (Ref Range: 3.3-5.1 mmol/L) 3.9 (Ref Range: 3.3-5.1 mmol/L) Chloride 106 (Ref Range: 96-108 mmol/L) 107 (Ref Range: 96-108 mmol/L) 105 (Ref Range: 96-108 mmol/L) Carbon Dioxide 25 (Ref Range: 22-29 mmol/L) 24 (Ref Range: 22-29 mmol/L) 26 (Ref Range: 22-29 mmol/L) Anion Gap 14 (Ref Range: 12-20) 15 (Ref Range: 12-20) 13 (Ref Range: 12-20) Blood Urea Nitrogen 17 H (Ref Range: 9-16 mg/dL) 16 (Ref Range: 9-16 mg/dL) 11 (Ref Range: 9-16 mg/dL) Creatinine 0.72 (Ref Range: 0.5-1.4 mg/dL) 0.73 (Ref Range: 0.5-1.4 mg/dL) 0.81 (Ref Range: 0.5-1.4 mg/dL) Estimated Glomerular Filt Rate > 60 > 60 > 60 Glucose Random 116 H (Ref Range: 60-115 mg/dL) 104 (Ref Range: 60-115 mg/dL) 107 (Ref Range: 60-115 mg/dL) Calcium 9.2 (Ref Range: 8.4-10.2 mg/dL) 9.2 (Ref Range: 8.4-10.2 mg/dL) 9.3 (Ref Range: 8.4-10.2 mg/dL) * Lab:Complete Blood Count Aut o Diff * Order Date 01/25/2024 11/22/2023 08/25/2023 White Blood Count 7.4 (Ref Range: 4.8-10.8 X10*3/uL) 6.7 (Ref Range: 4.8-10.8 X10*3/uL) 5.3 (Ref Range: 4.8-10.8 X10*3/uL) Red Blood Count 4.53 L (Ref Range: 4.60-5.80 X10*6/uL) 4.36 L (Ref Range: 4.60-5.80 X10*6/uL) 4.40 L (Ref Range: 4.60-5.80 X10*6/uL) Hemoglobin 13.8 L (Ref Range: 14.0-18.0 g/dl) 13.4 L (Ref Range: 14.0-18.0 g/dl) 13.6 L (Ref Range: 14.0-18.0 g/dl) Hematocrit 41.4 L (Ref Range: 42.0-52.0 %) 40.2 L (Ref Range: 42.0-52.0 %) 40.8 L (Ref Range: 42.0-52.0 %) Mean Corpuscular Volume 91.4 (Ref Range: 80.0-98.0 fL) 92.2 (Ref Range: 80.0-98.0 fL) 92.7 (Ref Range: 80.0-98.0 fL) Mean Corpuscular Hemoglobin 30.5 (Ref Range: 27.0-33.0 pg) 30.7 (Ref Range: 27.0-33.0 pg) 30.9 (Ref Range: 27.0-33.0 pg) Mean Corpuscular HGB Conc 33.3 (Ref Range: 31.0-36.0 g/dl) 33.3 (Ref Range: 31.0-36.0 g/dl) 33.3 (Ref Range: 31.0-36.0 g/dl) Red Cell Distribution Width 13.6 (Ref Range: 11.0-16.0 %) 13.7 (Ref Range: 11.0-16.0 %) 12.8 (Ref Range: 11.0-16.0 %) Platelet Count 239 (Ref Range: 160-400 X10*3/uL) 225 (Ref Range: 160-400 X10*3/uL) 213 (Ref Range: 160-400 X10*3/uL) Mean Platelet Volume 9.4 (Ref Range: 9.4-12.4 fL) 9.8 (Ref Range: 9.4-12.4 fL) 10.0 (Ref Range: 9.4-12.4 fL) Neutrophils Percent Auto 71.2 (Ref Range: 45-73 %) 69.5 (Ref Range: 45-73 %) 69.2 (Ref Range: 45-73 %) Imm Gran Pct Auto 0.3 (Ref Range: 0.0-0.4 %) 0.3 (Ref Range: 0.0-0.4 %) 0.2 (Ref Range: 0.0-0.4 %) Lymphocytes Percent Auto 17.4 L (Ref Range: 20-40 %) 19.6 L (Ref Range: 20-40 %) 18.1 L (Ref Range: 20-40 %) Monocytes Percent Auto 8.8 (Ref Range: 2-11 %) 7.4 (Ref Range: 2-11 %) 9.3 (Ref Range: 2-11 %) Eosinophils Percent Auto 2.0 (Ref Range: 0-4 %) 2.8 (Ref Range: 0-4 %) 3.0 (Ref Range: 0-4 %) Basophils Percent Auto 0.3 (Ref Range: 0-2 %) 0.4 (Ref Range: 0-2 %) 0.2 (Ref Range: 0-2 %) NRBC Pct Auto 0.0 (Ref Range: 0.0-0.2 /100WBC) 0.0 (Ref Range: 0.0-0.2 /100WBC) 0.0 (Ref Range: 0.0-0.2 /100WBC) Neutrophils Absolute Auto 5.3 (Ref Range: 2.0-8.3 x10*3/uL) 4.7 (Ref Range: 2.0-8.3 x10*3/uL) 3.6 (Ref Range: 2.0-8.3 x10*3/uL) Imm Gran Abs Auto 0.02 (Ref Range: 0.00-0.03 X10*3/uL) 0.02 (Ref Range: 0.00-0.03 X10*3/uL) 0.01 (Ref Range: 0.00-0.03 X10*3/uL) Lymphocytes Absolute Auto 1.3 (Ref Range: 1.2-4.9 X10*3/uL) 1.3 (Ref Range: 1.2-4.9 X10*3/uL) 1.0 L (Ref Range: 1.2-4.9 X10*3/uL) Monocytes Absolute Auto 0.7 (Ref Range: 0.1-1.2 X10*3/uL) 0.5 (Ref Range: 0.1-1.2 X10*3/uL) 0.5 (Ref Range: 0.1-1.2 X10*3/uL) Eosinophils Absolute Auto 0.2 (Ref Range: 0.0-0.4 X10*3/uL) 0.2 (Ref Range: 0.0-0.4 X10*3/uL) 0.2 (Ref Range: 0.0-0.4 X10*3/uL) Basophils Absolute Auto 0.0 (Ref Range: 0.0-0.2 X10*3/uL) 0.0 (Ref Range: 0.0-0.2 X10*3/uL) 0.0 (Ref Range: 0.0-0.2 X10*3/uL) NRBC Abs Auto 0.000 (Ref Range: 0.0-0.012 X10*3/uL) 0.000 (Ref Range: 0.0-0.012 X10*3/uL) 0.000 (Ref Range: 0.0-0.012 X10*3/uL) * Examination: G eneral Examination: GENERAL APPEARANCE: p leasant, well nourished, well developed, in no acute distress, calm and relaxed , man. HEAD: a traumatic, normocephalic. EYES: e vidal, perrla, anicteric, conjugate. EARS: n ormal. NOSE: s eptum intact. ORAL CAVITY: n ormal, unremarkable. NECK/THYROID: n o jugular venous distention, no carotid bruit, thyroid normal. LYMPH NODES: n o enlarged lymph nodes,spleen normal. SKIN: n o suspicious lesions, anicteric. HEART: n o clicks, gallops, murmurs, or rubs, regular rhythm, S1, S2 normal, no s3, or vascular bruits. LUNGS: c lear to auscultation . BREASTS: no masses palpable bilaterally. ABDOMEN: b owel sounds normal, no ascites, no organomegaly, no mass. RECTAL EXAM: n ot examined. MUSCULOSKELETAL: e xtremities unremarkable, no clubbing, cyanosis or edema, There is pain to compression of the right lateral to the. PERIPHERAL PULSES: n ormal. NEUROLOGIC: a lert and oriented, cranial nerves 2-12 grossly intact, deep tendon reflexes 2+ symmetrical, motor strength normal upper and lower extremities, sensory exam intact. PSYCH: a lert, oriented. Assessment: * Assessment: 1. O verweight - E66.3 (Primary), His weight is currently stable. Body mass index is 25. 2 . P rostate cancer - C61, He is doing well controlled for many years with hormone deprivation. The disease has become aggressive. Dr. Nur at [facility] has kknown him formay years and recommended paclitaxel Q21 days for 6 cycles in addition to degarelix and darolutamide.. 3 . B enign prostatic hypertrophy - N40.0, He rises from sleep once or twice a night to urinate. He is occasionally incontinent. We discussed lifestyle modifications way to reduce nocturia. 4 . O steopenia - M85.80, He will continue on his current regimen. 5 . I ncontinence - R32, He continues to have intermittent incontinence of urine. He has adapted to this and is unimpaired and daily living. 6 . S kin cancer, basal cell - C44.91, There is no sign of any new skin cancer. 7 . R eactive depression - F32.9, He will need to be restaged. We need to distinguish between agitated depression and progressive prostate cancer as a cause of the weight loss. I strongly recommended that he gave her. She primary care to receive treatment for his mental status heart ago to the hospital emergency room tomorrow morning and asked to see crisis. He will then see a mental health worker who can assess him. He has been coming to the office frequently without an appointment asking to see me. He has always been seen but is outside of the usual parameters of medical oncology and prostate cancer management. Plan: * Treatment: 2. P rostate cancer Referral To:[facility]cology [facility] Reason:Aggressive Prostate Cancer Treatment of Palliative per [facility] Palliative every 3 weeks for 6 cycles * Procedure Codes: * Follow Up: 2 Weeks (Reason: OV) * Images: * Sign off status: Completed true * Provider: Rylie Maynard MD Date: 0 02/25/2024 Generated for Printi ng/Ladang/eTransmitting on: 10/22/2024 11:30 AM EST History and Physical Notes * HPI (History of Present Illness) Category Sub-Category Detail Notes COVID-19 Screening Questions Have you had any new onset fever, chills, cough, congestion, sore throat, shortness of breath, muscle aches?: No Have you been exposed to the virus withi n the last 10 days?: No Have you travelled internationally in [facility] last 10 days?: No Have you been exposed to COVID-19 in the past?: No Examination Category Sub-Category Detail Notes General Examination GENERAL APPEARANCE: pleasant , well nourished, well developed, in no acute distress, calm and relaxed , man HEAD: atraumatic, normocep halic EYES: eomi, perrla, anicte dave, conjugate EARS: normal NOSE: septum intact NECK/THYROID: no jugular venous di stention, no carotid bruit, thyroid normal HEART: no clicks, gallops, murmurs, or rubs, regular rhythm, S1, S2 normal, no s3, or vascular bruits LUNGS: clear to auscultatio n ABDOMEN: bowel sounds normal, no ascites, no organomegaly, no mass NEUROLOGIC: alert and oriented, cranial nerves 2-12 grossly intact, deep tendon reflexes 2+ symmetrical, motor strength normal upper and lower extremities, sensory exam intact SKIN: no suspicious lesion s, anicteric PERIPHERAL PULSES: normal BREASTS: no masses palpable b ilaterally MUSCULOSKELETAL: extremities unremark able, no clubbing, cyanosis or edema, There is pain to compression of the right lateral to the LYMPH NODES: no enlarged lymph no nicole,spleen normal RECTAL EXAM: not examined PSYCH: alert, oriented ORAL CAVITY: normal, unremarkable Consultation Request Notes Referral Date Referring Provider Referred Provider Not chris 02/25/2024 Maynard, Wilfred Merida Niotaze , Medical Oncology Aggressive Prostate Cancer Treatment of Palliative per [facility] Palliative every 3 weeks for 6 cycles
--- OUTSIDE RECORDS SUMMARY | 2024-03-10 08:45 | XMS_ITS ---
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 Wilfred Marroquin III Unavailable Allergies Allergen (clinical drug ingredient) Drug/Non Drug Allergy documented on EMR Reaction Allergy Type Onset Date Status No Known Drug Allergy Unknown Drug Allergy Active REASON FOR VISIT Progression of prostate cancer, Nerve root impingement, Occasional incontiinence after prostatectomy, Reactive depression Medications Medication SIG (Take, Route, Frequency, Duration) Notes Start Date End Date Status amLODIPine Besylate 2.5 MG 1 tablet Orally Once a day Active oxyCODONE HCl 5 MG take 1 tablet by mouth every 6 hours Oral Active Escitalopram Oxalate 10 MG TAKE 1 TABLET BY MOUTH DAILY Diagnosis Unavailable Oral for depression Active Vitamin D 25 MCG (1000 UT) 1 tablet Orally Once a day 01/20/2023 Active Omeprazole 10 MG 1 capsule 30 minutes before morning meal Orally Once a day Active Social History Tobacco Use: Social History Observation Description Date Details (start date - stop date) Never Smoker NA - NA Sex Assigned At : Social History Observation Description Sex Assigned At Male Tobacco Use/Smoking Question Answer Notes Patient is a nonsmoker Additional Findings: Tobacco Non-User Aggressive non-smoker Vital Signs Temperature 99.1 degrees Fahrenheit 03/10/20 24 Blood pressure systolic 133 mm Hg 03/10/20 24 Blood pressure diastolic 77 mm Hg 024 Heart Rate 83 /min 03/10/2024 Height 74 in 03/10/2024 Weight 197 lbs 03/10/2024 BMI 25.29 kg/m2 03/10/2024 Encounters Encounter Location Date Provider Diagnosis Wilfred Maynard III, MD [address] [place] [address] [address] [place], [place] [phone] 03/10/2024 Wilfred Maynard Overweight E66.3 ; Prostate cancer C61 ; Hyperglycemia R73.9 ; Osteopenia M85.80 ; Incontinence R32 and Vitamin D deficiency, unspecified E55.9 Assessments Encounter Date Diagnosis (ICD Code) Assessment Notes Treat ment Notes Treatment Clinical Notes 03/10/2024 Overweight (ICD-10 - E66.3) He has gained 2 pounds which reverses a recent study weight loss. This is likely due to treatment of the progressive malignancy. He reports a good appetite. He says he is eating well. 03/10/2024 Prostate cancer (ICD-10 - C61) He has begun a new regimen of leuprolide and docetaxel and darolutamide. His PSA is low and likely not a reliable way to follow malignancy. 03/10/2024 Hyperglycemia (ICD-10 - R73.9) Most recent glucose is 116. This will be followed carefully. A hemoglobin A1c will be ordered. 03/10/2024 Osteopenia (ICD-10 - M85.80) He will continue on his current regimen. He will be followed for osteoporosis. He is at risk due to a low testosterone. I recommended 500 mg of calcium twice a day with vitamin D. 03/10/2024 Incontinence (ICD-10 - R32) He continues to have intermittent incontinence of urine. He has adapted to this and is unimpaired and daily living. 03/10/2024 Vitamin D deficiency, unspecified (ICD-10 - E55.9) He was continued on vitamin D. He is known to have osteopenia. Plan Of Treatment Medication Medication Name Sig Start Date Stop Date Notes amLODIPine Besylate 2.5 MG 1 tablet Orally Once a day oxyCODONE HCl 5 MG take 1 tablet by tequila th every 6 hours Oral Escitalopram Oxalate 10 MG TAKE 1 TABLET BY MOUTH DAILY Diagnosis Unavailable Oral for depression Vitamin D 25 MCG (1000 UT) 1 tablet Orally Once a day 01/20/2023 Omeprazole 10 MG 1 capsule 30 minutes before morning meal Orally Once a day Next Appt Details Follow Up: 3 Weeks, Reason: OV Progress Notes * Justin BRICENO:[birth year] (68 yo M)Acc No.[id number]:03/10/2024 Progress Notes Patient: Justin Antoine Provider: Rylie Maynard MD :1955 A ge:68 Y S ex:Male Date:03/10/2024 Address:[address] [place], [place] [id number] Pcp:PREETI HDEZ Subjective: * Chief Complaints: * P rogression of prostate cancerNerve root impingementOccasional incontiinence after prostatectomyReactive depression * HPI: C OVID-19 Screening: He returns for ongoing management of his recent progression of prostate cancer in the right seventh rib. The pain from the impingement on the nerve root at the seventh rib has improved with treatment. The bicalutamide has been stopped and replaced with darolutamide (Nubequa). He has an appointment March 16, 2024 at [facility] with medical oncology to begin a course of docetaxel chemotherapy. The leuprolide injections have been resumed. He was medically stable today with improving pain. Questions H ave you experienced fever, chills, [...] N o * ROS: G eneral/Constitutional: pain C hest wall. C hills d enies. F atigue?admits. F ever d enies. E NT: Decreased hearing d enies. R [...] have been noted. G enitourinary: Frequent urination t hree times a night. M usculoskeletal: Muscle aches d enies. P ainful joints d enies. S ciatica d enies. W eakness d enies. S kin: Itching d enies. R samira d enies. S kin lesion(s)?denies. N eurologic: Difficulty speaking d enies. D izziness d enies.?Headache d enies. L ow back pain d enies. P sychiatric: Depressed mood w hich is mild. * Medical History: * Surgical History: b [...] T obacco Use: T obacco Use/Smoking P atjoselin is a n onsmoker A dditional Findings: Tobacco Non-User A ggressive non-smoker H e is single and working. He was born in [place], [place]. He does not drink or smoke. 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 He enjoys [employer] He has one daughter. * Medications: T [...] Verified] Objective: * Vitals: H t: 74, Wt:197, BMI:25.29, BP:133/77, HR:83, Temp:99.1, Ht-cm: 187.96, Wt-k.36. * P ast Orders: Lab:Prostate Specific Antige [...] no acute distress, calm and relaxed , overweight , man. HEAD: a traumatic, normocephalic. EYES: [...] normal, no ascites, no organomegaly, no mass , overweight. RECTAL EXAM: n ot examined. MUSCULOSKELETAL: e xtremities unremarkable, no clubbing, cyanosis or edema, Pain to compression of right chest wall. PERIPHERAL PULSES: n ormal. NEUROLOGIC: a lert and oriented, cranial nerves 2-12 grossly intact, deep tendon reflexes 2+ symmetrical, motor strength normal upper and lower extremities, sensory exam intact, No muscular weakness, toes are downgoing, reflexes equal and symmetrical. PSYCH: a lert, oriented , mood depressed , anxious appearing. Assessment: * Assessment: 1. O verweight - E66.3 (Primary), He has gained 2 pounds which reverses a recent study weight loss. This is likely due to treatment of the progressive malignancy. He reports a good appetite. He says he is eating well. 2 . P rostate cancer - C61, He has begun a new regimen of leuprolide and docetaxel and darolutamide. His PSA is low and likely not a reliable way to follow malignancy. 3. H yperglycemia - R73.9, Most recent glucose is 116. This will be followed carefully. A hemoglobin A1c will be ordered. 4 . O steopenia - M85.80, He will continue on his current regimen. He will be followed for osteoporosis. He is at risk due to a low testosterone. I recommended 500 mg of calcium twice a day with vitamin D. 5 . I ncontinence - R32, He continues to have intermittent incontinence of urine. He has adapted to this and is unimpaired and daily living. 6 .?Vitamin D deficiency, unspecified - E55.9, He was continued on vitamin D. He is known to have osteopenia. Plan: * Treatment: 2. P rostate cancer L AB: PROFILE, RANDOM (COMPREHENSIVE METABOLIC) L AB: PSA, TOTAL L AB: TESTOSTERONE, TOTAL L AB: CBC WITH AUTO DIFF 3. H yperglycemia L AB: PROFILE, RANDOM (COMPREHENSIVE METABOLIC) L AB: PSA, TOTAL L AB: TESTOSTERONE, TOTAL L AB: CBC WITH AUTO DIFF * Procedure Codes: * Preventive Medicine: Counseling: C are goal follow-up plan: Counseling for abnormal BMI given Y es Above Normal BMI Follow-up D ietary management education, guidance, and counseling, Dietary needs education * Follow Up: 3 Weeks (Reason: OV) * Images: * Sign off status: Completed true * Provider: Rylie Maynard MD Date: 0 03/10/2024 Generated for Printi ng/Faxing/eTransmitting on: 1 10/22/2024 11:29 AM EST History and Physical Notes * HPI (History of Present Illness) Category Sub-Category Detail Notes COVID-19 Screening Questions Have you had any new onset fever, chills, cough, congestion, sore throat, shortness of breath, muscle aches?: No Have you been exposed to the virus withi n the last 10 days?: No Have you travelled internationally in [facility] last 10 days?: No Have you been exposed to COVID-19 in the past?: No Examination Category Sub-Category Detail Notes General Examination GENERAL APPEARANCE: pleasant , well nourished, well developed, in no acute distress, calm and relaxed , overweight , man HEAD: atraumatic, normocep halic EYES: eomi, perrla, anicte dave, conjugate EARS: normal NOSE: septum intact NECK/THYROID: no jugular venous di stention, no carotid bruit, thyroid normal HEART: no clicks, gallops, murmurs, or rubs, regular rhythm, S1, S2 normal, no s3, or vascular bruits LUNGS: clear to auscultatio n ABDOMEN: bowel sounds normal, no ascites, no organomegaly, no mass , overweight NEUROLOGIC: alert and oriented, cranial nerves 2-12 grossly intact, deep tendon reflexes 2+ symmetrical, motor strength normal upper and lower extremities, sensory exam intact, No muscular weakness, toes are downgoing, reflexes equal and symmetrical SKIN: no suspicious lesion s, anicteric PERIPHERAL PULSES: normal BREASTS: no masses palpable b ilaterally MUSCULOSKELETAL: extremities unremark able, no clubbing, cyanosis or edema, Pain to compression of right chest wall LYMPH NODES: no enlarged lymph no nicole,spleen normal RECTAL EXAM: not examined PSYCH: alert, oriented , mo od depressed , anxious appearing ORAL CAVITY: normal, unremarkable
--- OUTSIDE RECORDS SUMMARY | 2024-03-31 06:00 | XMS_ITS ---
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 Wilfred Marroquin III Unavailable Allergies Allergen (clinical drug ingredient) Drug/Non Drug Allergy documented on EMR Reaction Allergy Type Onset Date Status No Known Drug Allergy Unknown Drug Allergy Active REASON FOR VISIT Progression of prostate cancer, Nerve impingement thoracic spine, Anxiety and depression, Osteopenia Medications Medication SIG (Take, Route, Frequency, Duration) Notes Start Date End Date Status Vitamin D 25 MCG (1000 UT) 1 tablet Orally Once a day 01/20/2023 Active Omeprazole 10 MG 1 capsule 30 minutes before morning meal Orally Once a day Active amLODIPine Besylate 2.5 MG 1 tablet Orally [...] Tobacco Non-User Aggressive non-smoker Vital Signs Temperature 98.6 degrees Fahrenheit 03/31/20 24 Blood pressure systolic 133 mm Hg 03/31/20 24 Blood pressure diastolic 71 mm Hg 024 Heart Rate 68 /min 03/31/2024 Height 74 in 03/31/2024 Weight 205 lbs 03/31/2024 BMI 26.32 kg/m2 03/31/2024 Encounters Encounter Location Date Provider Diagnosis Wilfred Maynard III, MD [address] [place] [address] [place] [address] 03/31/2024 Wilfred Maynard Overweight E66.3 ; Prostate cancer C61 ; Osteopenia M85.80 ; Benign prostatic hypertrophy N40.0 and Reactive depression F32.9 Assessments Encounter Date Diagnosis (ICD Code) Assessment Notes Treatment Notes Treatment Clinical Notes 03/31/2024 Overweight (ICD-10 - E66.3) He has gained 2 pounds which reverses a recent study weight loss. This is likely due to treatment of the progressive malignancy. He reports a good appetite. He says he is eating well. 03/31/2024 Prostate cancer (ICD-10 - C61) He has begun a new regimen of leuprolide and docetaxel and darolutamide. His PSA is low and likely not a reliable way to follow malignancy. 03/31/2024 Osteopenia (ICD-10 - M85.80) He will continue on his current regimen. He will be followed for osteoporosis. He is at risk due to a low testosterone. I recommended 500 mg of calcium twice a day with vitamin D. 03/31/2024 Benign prostatic hypertrophy (ICD-10 - N40.0) He rises from sleep once or twice a night to urinate. He is occasionally incontinent. We discussed lifestyle modifications way to reduce nocturia. 03/31/2024 Reactive depression (ICD-10 - F32.9) He will [...] Name Sig Start Date Stop Date Notes Vitamin D 25 MCG (1000 UT) 1 tablet Orally Once a day 01/20/2023 Omeprazole 10 MG 1 capsule 30 minutes before morning meal Orally Once a day amLODIPine Besylate 2.5 MG 1 tablet Orally Once a day oxyCODONE HCl 5 MG take 1 tablet by tequila th every 6 hours Oral Escitalopram Oxalate 10 MG TAKE 1 TABLET BY MOUTH DAILY Diagnosis Unavailable Oral for depression Next Appt Details Follow Up: 6 Weeks, Reason: ov Progress Notes * Justin BRICENODOB:[birth year] (69 yo M)Acc No.[id number]:03/31/2024 Progress Notes Patient: Justin Antoine Provider: Rylie Maynard MD :1955 A ge:68 Y S ex:Male Date:03/31/2024 Address:[address] [place], [place] [id number] Pcp:PREETI HDEZ Subjective: * Chief Complaints: * P rogression of prostate cancerNerve impingement thoracic spineAnxiety and depressionOsteopenia * HPI: C OVID-19 Screening: He was recently referred to radiation therapy [facility] to see if his pain could be reduced. He was then sent to [facility] for an opinion where he saw Dr. Verona Nur, Genitourinary medical oncology. She recommended a treatment that included 6 cycles of docetaxel and darolutamide. He has begun on the oral portion will begin the intravenous chemotherapy next week. His pain is controlled with medication. Questions H ave you experienced fever, chills, [...] N o * ROS: G eneral/Constitutional: pain T horacic spine and thoracic wall with lifting. C hills d enies. F atigue a dmits. F ever d enies. E NT: Decreased hearing d enies. R espiratory: Cough d enies. C ardiovascular: Chest pain with exertion o ccurred frequently. D yspnea on exertion d enies. S hortness of breath d enies. G [...] P sychiatric: Depressed mood w hich is moderate. * Medical History: * Surgical History: b [...] single and working. He was born in [place], [place]. He does not drink or smoke. 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 He enjoys [...] Verified] Objective: * Vitals: H t: 74, Wt:205, BMI:26.32, BP:133/71, HR:68, Temp:98.6, Ht-cm: 187.96, Wt-k.99. * P ast Orders: Lab:Comprehensive Met. Panel * Order Date 03/29/2024 01/25/2024 11/22/2023 Sodium 141 (Ref Range: 135-145 mmol/L) 141 (Ref Range: 135-145 mmol/L) 142 (Ref Range: 135-145 mmol/L) Bilirubin Total 0.3 (Ref Range: 0.0-1.0 mg/dL) 0.4 (Ref Range: 0.0-1.0 mg/dL) 0.3 (Ref Range: 0.0-1.0 mg/dL) Aspartate Amino Transferase 17 (Ref Range: 5-37 U/L) 16 (Ref Range: 5-37 U/L) 16 (Ref Range: 5-37 U/L) Alanine Aminotransferase 22 (Ref Range: 0-40 U/L) 17 (Ref Range: 0-40 U/L) 16 (Ref Range: 0-40 U/L) Total Protein 6.9 (Ref Range: 6.5-8.0 g/dL) 7.8 (Ref Range: 6.5-8.0 g/dL) 7.6 (Ref Range: 6.5-8.0 g/dL) Albumin Level 3.8 (Ref Range: 3.5-5.0 g/dL) 4.2 (Ref Range: 3.5-5.0 g/dL) 4.1 (Ref Range: 3.5-5.0 g/dL) Alkaline Phosphatase 99 (Ref Range: 39-117 U/L) 158 H (Ref Range: 39-117 U/L) 146 H (Ref Range: 39-117 U/L) Potassium 3.9 (Ref Range: 3.3-5.1 mmol/L) 4.1 (Ref Range: 3.3-5.1 mmol/L) 3.6 (Ref Range: 3.3-5.1 mmol/L) Chloride 105 (Ref Range: 96-108 mmol/L) 106 (Ref Range: 96-108 mmol/L) 107 (Ref Range: 96-108 mmol/L) Carbon Dioxide 28 (Ref Range: 22-29 mmol/L) 25 (Ref Range: 22-29 mmol/L) 24 (Ref Range: 22-29 mmol/L) Anion Gap 12 (Ref Range: 12-20) 14 (Ref Range: 12-20) 15 (Ref Range: 12-20) Blood Urea Nitrogen 18 H (Ref Range: 9-16 mg/dL) 17 H (Ref Range: 9-16 mg/dL) 16 (Ref Range: 9-16 mg/dL) Creatinine 0.72 (Ref Range: 0.5-1.4 mg/dL) 0.72 (Ref Range: 0.5-1.4 mg/dL) 0.73 (Ref Range: 0.5-1.4 mg/dL) Estimated Glomerular Filt Rate > 60 > 60 > 60 Glucose Random 85 (Ref Range: 60-115 mg/dL) 116 H (Ref Range: 60-115 mg/dL) 104 (Ref Range: 60-115 mg/dL) Calcium 9.5 (Ref Range: 8.4-10.2 mg/dL) 9.2 (Ref Range: 8.4-10.2 mg/dL) 9.2 (Ref Range: 8.4-10.2 mg/dL) * Lab:Complete Blood Count Aut o Diff * Order Date 03/29/2024 01/25/2024 11/22/2023 White Blood Count 6.7 (Ref Range: 4.8-10.8 X10*3/uL) 7.4 (Ref Range: 4.8-10.8 X10*3/uL) 6.7 (Ref Range: 4.8-10.8 X10*3/uL) Red Blood Count 4.16 L (Ref Range: 4.60-5.80 X10*6/uL) 4.53 L (Ref Range: 4.60-5.80 X10*6/uL) 4.36 L (Ref Range: 4.60-5.80 X10*6/uL) Hemoglobin 12.7 L (Ref Range: 14.0-18.0 g/dl) 13.8 L (Ref Range: 14.0-18.0 g/dl) 13.4 L (Ref Range: 14.0-18.0 g/dl) Hematocrit 38.7 L (Ref Range: 42.0-52.0 %) 41.4 L (Ref Range: 42.0-52.0 %) 40.2 L (Ref Range: 42.0-52.0 %) Mean Corpuscular Volume 93.0 (Ref Range: 80.0-98.0 fL) 91.4 (Ref Range: 80.0-98.0 fL) 92.2 (Ref Range: 80.0-98.0 fL) Mean Corpuscular Hemoglobin 30.5 (Ref Range: 27.0-33.0 pg) 30.5 (Ref Range: 27.0-33.0 pg) 30.7 (Ref Range: 27.0-33.0 pg) Mean Corpuscular HGB Conc 32.8 (Ref Range: 31.0-36.0 g/dl) 33.3 (Ref Range: 31.0-36.0 g/dl) 33.3 (Ref Range: 31.0-36.0 g/dl) Red Cell Distribution Width 16.4 H (Ref Range: 11.0-16.0 %) 13.6 (Ref Range: 11.0-16.0 %) 13.7 (Ref Range: 11.0-16.0 %) Platelet Count 211 (Ref Range: 160-400 X10*3/uL) 239 (Ref Range: 160-400 X10*3/uL) 225 (Ref Range: 160-400 X10*3/uL) Mean Platelet Volume 10.5 (Ref Range: 9.4-12.4 fL) 9.4 (Ref Range: 9.4-12.4 fL) 9.8 (Ref Range: 9.4-12.4 fL) Neutrophils Percent Auto 62.2 (Ref Range: 45-73 %) 71.2 (Ref Range: 45-73 %) 69.5 (Ref Range: 45-73 %) Imm Gran Pct Auto 1.2 H (Ref Range: 0.0-0.4 %) 0.3 (Ref Range: 0.0-0.4 %) 0.3 (Ref Range: 0.0-0.4 %) Lymphocytes Percent Auto 25.1 (Ref Range: 20-40 %) 17.4 L (Ref Range: 20-40 %) 19.6 L (Ref Range: 20-40 %) Monocytes Percent Auto 8.6 (Ref Range: 2-11 %) 8.8 (Ref Range: 2-11 %) 7.4 (Ref Range: 2-11 %) Eosinophils Percent Auto 2.4 (Ref Range: 0-4 %) 2.0 (Ref Range: 0-4 %) 2.8 (Ref Range: 0-4 %) Basophils Percent Auto 0.5 (Ref Range: 0-2 %) 0.3 (Ref Range: 0-2 %) 0.4 (Ref Range: 0-2 %) NRBC Pct Auto 0.0 (Ref Range: 0.0-0.2 /100WBC) 0.0 (Ref Range: 0.0-0.2 /100WBC) 0.0 (Ref Range: 0.0-0.2 /100WBC) Neutrophils Absolute Auto 4.1 (Ref Range: 2.0-8.3 x10*3/uL) 5.3 (Ref Range: 2.0-8.3 x10*3/uL) 4.7 (Ref Range: 2.0-8.3 x10*3/uL) Imm Gran Abs Auto 0.08 H (Ref Range: 0.00-0.03 X10*3/uL) 0.02 (Ref Range: 0.00-0.03 X10*3/uL) 0.02 (Ref Range: 0.00-0.03 X10*3/uL) Lymphocytes Absolute Auto 1.7 (Ref Range: 1.2-4.9 X10*3/uL) 1.3 (Ref Range: 1.2-4.9 X10*3/uL) 1.3 (Ref Range: 1.2-4.9 X10*3/uL) Monocytes Absolute Auto 0.6 (Ref Range: 0.1-1.2 X10*3/uL) 0.7 (Ref Range: 0.1-1.2 X10*3/uL) 0.5 (Ref [...] X10*3/uL) 0.000 (Ref Range: 0.0-0.012 X10*3/uL) * Lab:Prostate Specific Antige n * Order Date 03/29/2024 01/25/2024 11/22/2023 Prostate Specific Antigen 0.47 (Ref Range: <0.05-4.0 ng/mL) 1.14 (Ref Range: <0.05-4.0 ng/mL) 0.70 (Ref Range: <0.05-4.0 ng/mL) * Examination: G eneral Examination: GENERAL APPEARANCE: [...] nodes,spleen normal. SKIN: n o suspicious lesions, anicteric, Numerous sebaceous cysts. HEART: n o clicks, gallops, murmurs, or rubs, regular rhythm, S1, S2 normal, no s3, or vascular bruits. LUNGS: c lear to auscultation . BREASTS: no masses palpable bilaterally. ABDOMEN: b owel sounds normal, no ascites, no organomegaly, no mass , overweight. RECTAL EXAM: n ot examined. MUSCULOSKELETAL: e xtremities unremarkable, no clubbing, cyanosis or edema, Pain to percussion of the thoracic spine or compression of the ribs. PERIPHERAL PULSES: n ormal. NEUROLOGIC: a lert and oriented, cranial nerves 2-12 grossly intact, deep tendon reflexes 2+ symmetrical, motor strength normal upper and lower extremities, sensory exam intact. PSYCH: a lert, oriented , anxious appearing. ? Assessment: * Assessment: 1. P rostate cancer - C61, He has begun a new regimen of leuprolide and docetaxel and darolutamide. His PSA is low and likely not a reliable way to follow malignancy. 2 . O verweight - E66.3, He has gained 2 pounds which reverses a recent study weight loss. This is likely due to treatment of the progressive malignancy. He reports a good appetite. He says he is eating well. 3 . Osteopenia - M85.80, He will continue on his current regimen. He will be followed for osteoporosis. He is at risk due to a low testosterone. I recommended 500 mg of calcium twice a day with vitamin D. 4 . B enign prostatic hypertrophy - N40.0, He rises from sleep once or twice a night to urinate. He is occasionally incontinent. We discussed lifestyle modifications way to reduce nocturia. 5. R eactive depression - F32.9, He will [...] and prostate cancer management. Plan: * Treatment: * Procedure Codes: * Preventive Medicine: Counseling: C are goal follow-up plan: Counseling for abnormal BMI given Y es Above Normal BMI Follow-up D ietary management education, guidance, and counseling, Dietary needs education * Follow Up: 6 Weeks (Reason: ov) * Images: * Sign off status: Completed true * Provider: Rylie Maynard MD Date: 0 03/31/2024 Generated for Printi ng/Faxing/eTransmitting on: 10/22/2024 11:26 AM EST History and Physical Notes * HPI (History of Present Illness) Category Sub-Category Detail Notes COVID-19 Screening Questions Have you had any new onset fever, chills, cough, congestion, sore throat, shortness of breath, muscle aches?: No Have you been exposed to the virus withi n the last 10 days?: No Have you travelled internationally in last 10 days?: No Have you been [...] exam intact SKIN: no suspicious lesion s, anicteric, Numerous sebaceous cysts PERIPHERAL PULSES: normal BREASTS: no masses palpable b ilaterally MUSCULOSKELETAL: extremities unremark able, no clubbing, cyanosis or edema, Pain to percussion of the thoracic spine or compression of the ribs LYMPH NODES: no enlarged lymph no nicole,spleen normal RECTAL EXAM: not examined PSYCH: alert, oriented , an xious appearing ORAL CAVITY: normal, unremarkable
--- OUTSIDE RECORDS SUMMARY | 2024-06-02 05:30 | XMS_ITS ---
Author Organization Wilfred Maynard III, MD Address [address] [place] [address] Care Team Providers Care Fundraiser Name Role Phone PREETI HDEZ Primary Care Provider Unavailab Dr. Wilfred Marroquin III Unavailable [phone] Allergies Allergen (clinical drug ingredient) Drug/Non Drug Allergy documented on EMR Reaction Allergy Type Onset Date Status No Known Drug Allergy Unknown Drug Allergy Active Results Component Value Reference Range Notes Urine Culture Reviewed date:08/23/2024 08:18:58 AM Interpretation: Performing Lab:[facility], [address] [place] [id number] Notes/Report: O:PROMIR Proteus mirabilis Urine Culture Quant Urine Culture 10,000 to 50,000 cfu/mL Ampicillin <=2 Cefazolin <=4 Ceftriaxone <=0.25 Ciprofloxacin <=0.25 Gentamicin <=1 Nitrofurantoin 128 Trimethoprim/Sulfamethoxazole <=20 REASON FOR VISIT Stage IV prostate cancer, Chronic pain, Osteopenia, Depression, Benign prosthetic hypertrophy Medications Medication SIG (Take, Route, Frequency, Duration) Notes Start Date End Date Status Escitalopram Oxalate 10 MG TAKE 1 TABLET [...] by mouth every 6 hours Oral Active Social History Tobacco Use: Social History Observation Description Date Details (start date - stop date) Never Smoker NA - NA Sex Assigned At : Social History Observation Description Sex Assigned At Male Tobacco Use/Smoking Question Answer Notes Patient is a nonsmoker Additional Findings: Tobacco Non-User Aggressive non-smoker Problems Problem Type SNOMED Code ICD Code Onset Dates Problem Status W/U Status Risk Notes Problem Overweight (373923423) Overweight (E66.3) Active confirmed His body mass index is slightly over 25. He has lost weight recently. IRs and to maintain his weight at this level to a healthy nutritious diet. Vital Signs Temperature 97.3 degrees Fahrenheit 06/02/20 24 Blood pressure systolic 136 mm Hg 06/02/20 24 Blood pressure diastolic 74 mm Hg 024 Heart Rate 75 /min 06/02/2024 Height 74 in 06/02/2024 Weight 206 lbs 06/02/2024 BMI 26.45 kg/m2 06/02/2024 Encounters Encounter Location Date Provider Diagnosis Wilfred Maynard III, MD [address] [place] [address] [place] [address] 06/02/2024 Wilfred Maynard Overweight E66.3 ; Prostate cancer C61 ; UTI symptoms R39.9 ; Incontinence R32 ; Osteopenia M85.80 ; Skin cancer, basal cell C44.91 and Benign prostatic hypertrophy N40.0 Assessments Encounter Date Diagnosis (ICD Code) Assessment Notes Treatment Notes Treatment Clinical Notes 06/02/2024 Overweight (ICD-10 - E66.3) His weight has been stable. He reports a good appetite. He says he is eating well.He is very slightly overweight. We agreed to stabilize his weight at this level. 06/02/2024 Prostate cancer (ICD-10 - C61) He has begun a new regimen of leuprolide and docetaxel and darolutamide. His PSA is low and likely not a reliable way to follow malignancy. He is being treated by medical oncology at [facility]. His review of symptoms and tolerating his treatment well. We have requested the records. 06/02/2024 UTI symptoms (ICD-10 - R39.9) He will have a urine analysis and urine culture. 06/02/2024 Incontinence (ICD-10 - R32) He continues to have intermittent incontinence of urine. He has adapted to this and is unimpaired and daily living. 06/02/2024 Osteopenia (ICD-10 - M85.80) He will continue on his current regimen. He will be followed for osteoporosis. He is at risk due to a low testosterone. I recommended 500 mg of calcium twice a day with vitamin D. 06/02/2024 Skin cancer, basal cell (ICD-10 - C44.91) There is no sign of any new skin cancer. 06/02/2024 Benign prostatic hypertrophy (ICD-10 - N40.0) He rises from sleep once or twice a night to urinate. He is occasionally incontinent. We discussed lifestyle modifications way to reduce nocturia. Plan Of Treatment Medication Medication Name Sig Start Date Stop Date Notes Escitalopram Oxalate 10 MG TAKE 1 TABLET [...] by tequila th every 6 hours Oral Pending Test Test Name Order Date URINALYSIS (UA) 06/02/2024 Next Appt Details Follow Up: 3 Months, Reason: OV Progress Notes * Justin BRICENODOB:[birth year] (69 yo M)Acc No.[id number]:06/02/2024 Progress Notes Patient: Justin TRIPP Provider: Rylie Maynard MD :1955 A ge:69 Y S ex:Male Date:06/02/2024 Address:[address] [place], [place] [id number] Pcp:PREETI HDEZ Subjective: * Chief Complaints: * S tage IV prostate cancerChronic painOsteopeniaDepressionBenign prosthetic hypertrophy * HPI: C OVID-19 Screening: Questions H ave you experienced fever, chills, [...] COVID-19 in the past? N o * : The patient, a 69-year-old male, presented with complaints of bowel incontinence and frequent urination, waking up at least 6 times a night. He also reported experiencing diarrhea. The patient is currently undergoing chemotherapy for prostate cancer and is due for his 4th session next Wednesday. He also mentioned that he has been taking stool softeners, which might be contributing to his bowel issues. The patient also reported occasional back pain and fatigue, which he attributes to his ongoing chemotherapy. He also mentioned that his appetite has been affected, with food tasting bland, likely due to the chemotherapy. The patient has a history of prostate cancer, for which his prostate was removed 18 years ago. He is currently on hormone injections every few months, possibly Lupron. * ROS: G eneral/Constitutional: pain C ontrolled with current pain medication. C hills?denies. A dmits F atigue, a dmits. F ever d enies. E NT: Decreased hearing d enies. R espiratory: Cough d enies. C ardiovascular: Chest pain with exertion d enies. D yspnea on exertion?denies. S hortness of breath d enies. G astrointestinal: Constipation o ccasional. D ecreased appetite d enies. A dmits D iarrhea, d enies. H eartburn d enies. N ausea d enies.?Rectal bleeding d enies. V omiting d enies. H ematology: bruising d enies. p etechiae d enies. S wollen glands n one have been noted. G enitourinary: Frequent urination d enies. M usculoskeletal: Muscle aches d enies. P [...] History: b iopsy of prostate 2006radical prostatectomy 2008Prostate removal surgery 18 years ago * Hospitalization/Major Diagno stic Procedure: S hortness of breath 01/2020Shortness of breath 04/2020No history * Family History: F ather: 81 yrs, [...] single and working. He was born in [place], [place]. He does not drink or smoke. 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 He enjoys drumming. He has one daughter. * Medications: T akingoxyCODONE HCl 5 MG Tablet take 1 tablet by mouth every 6 hours Oral amLODIPine Besylate 2.5 MG Tablet 1 tablet Orally Once a day Omeprazole 10 MG Capsule Delayed Release 1 capsule 30 minutes before morning meal Orally Once a day Vitamin D 25 MCG (1000 UT) Tablet 1 tablet Orally Once a day Escitalopram Oxalate 10 MG Tablet TAKE 1 TABLET BY MOUTH DAILY Diagnosis Unavailable Oral , Notes to Pharmacist: for depressionMedication List reviewed and reconciled with the patientTaking oxyCODONE HCl 5 MG Tablet take 1 tablet by mouth every 6 hours Oral Taking amLODIPine Besylate 2.5 MG Tablet 1 tablet Orally Once a day Taking Omeprazole 10 MG Capsule Delayed Release 1 capsule 30 minutes before morning meal Orally Once a day Taking Vitamin D 25 MCG (1000 UT) Tablet 1 tablet Orally Once a day Taking Escitalopram Oxalate 10 MG Tablet TAKE 1 TABLET BY MOUTH DAILY Diagnosis Unavailable Oral , Notes to Pharmacist: for depressionMedication List reviewed and reconciled with the patient * Allergies: N o Known Drug Allergyno[Allergies Verified] Objective: * Vitals: H t: 74, Wt:206, BMI:26.45, BP:136/74, HR:75, Temp:97.3, Ht-cm: 187.96, Wt-k.44. * Examination: G eneral Examination: GENERAL APPEARANCE: p leasant, well nourished, well developed, in no acute distress, calm and relaxed, overweight, man. HEAD: a traumatic, normocephalic. EYES: e [...] or vascular bruits. LUNGS: c lear to auscultation, good air movement, no wheezes, rales, rhonchi. BREASTS: no masses palpable bilaterally. ABDOMEN: b owel sounds normal, no ascites, no organomegaly, no mass, overweight. RECTAL EXAM: n ot examined. MUSCULOSKELETAL: e xtremities unremarkable, no clubbing, cyanosis or edema. PERIPHERAL PULSES: n ormal. NEUROLOGIC: a lert and oriented, cranial nerves 2-12 grossly intact, deep tendon reflexes 2+ symmetrical, motor strength normal upper and lower extremities, sensory exam intact. PSYCH: a lert, oriented, anxious appearing, mood depressed.? Assessment: * Assessment: 1. P rostate cancer - C61 (Primary) N otes :He has begun a new regimen of leuprolide and docetaxel and darolutamide. His PSA is low and likely not a reliable way to follow malignancy. He is being treated by medical oncology at [facility]. His review of symptoms and tolerating his treatment well. We have requested the records. 2 . O verweight - E66.3 N otes :His weight has been stable. He reports a good appetite. He says he is eating well.He is very slightly overweight. We agreed to stabilize his weight at this level. 3 . U TI symptoms - R39.9 N otes :He will have a urine analysis and urine culture. 4 . I ncontinence - R32 N otes :He continues to have intermittent incontinence of urine. He has adapted to this and is unimpaired and daily living. 5 . O steopenia - M85.80 N otes :He will continue on his current regimen. He will be followed for osteoporosis. He is at risk due to a low testosterone. I recommended 500 mg of calcium twice a day with vitamin D. 6 . S kin cancer, basal cell - C44.91 N otes :There is no sign of any new skin cancer. 7 . B enign prostatic hypertrophy - N40.0 N otes :He rises from sleep once or twice a night to urinate. He is occasionally incontinent. We discussed lifestyle modifications way to reduce nocturia. Plan: * Treatment: 2. U TI symptoms L AB: URINALYSIS (UA) L AB: Urine Culture * Procedure Codes: * Preventive Medicine: Counseling: C are goal follow-up plan: Counseling for abnormal BMI given Y es Above Normal BMI Follow-up D ietary needs education * Follow Up: 3 Months (Reason: OV) * Images: * Sign off status: Completed true * Provider: Rylie Maynard MD Date: Generated for Printi ng/Faleobardog/eTransmitting on: 10/22/2024 11:29 AM EST History and Physical [...] developed, in no acute distress, calm and relaxed, overweight, man HEAD: atraumatic, normocep halic EYES: eomi, perrla, anicte dave, conjugate EARS: normal NOSE: septum intact NECK/THYROID: no jugular venous di stention, no carotid bruit, thyroid normal HEART: no clicks, gallops, murmurs, or rubs, regular rhythm, S1, S2 normal, no s3, or vascular bruits LUNGS: clear to auscultatio n, good air movement, no wheezes, rales, rhonchi ABDOMEN: bowel sounds normal, no ascites, no organomegaly, no mass, overweight NEUROLOGIC: alert and oriented, cranial nerves 2-12 grossly intact, deep tendon reflexes 2+ symmetrical, motor strength normal upper and lower extremities, sensory exam intact SKIN: no suspicious lesion s, anicteric PERIPHERAL PULSES: normal BREASTS: no masses palpable b ilaterally MUSCULOSKELETAL: extremities unremark able, no clubbing, cyanosis or edema LYMPH NODES: no enlarged lymph no nicole,spleen normal RECTAL EXAM: not examined PSYCH: alert, oriented, anx ious appearing, mood depressed ORAL CAVITY: normal, unremarkable
--- OUTSIDE RECORDS SUMMARY | 2024-09-04 05:30 | XMS_ITS ---
Author Organization Wilfred Maynard III, MD Address [address] [facility] [place] [address] Care Team Providers Care Drop Man Name Role Phone PREETI HDEZ Primary Care Provider Unavailab Dr. Wilfred Marroquin III Unavailable [phone] Allergies Allergen (clinical drug ingredient) Drug/Non Drug Allergy documented on EMR Reaction Allergy Type Onset Date Status No Known Drug Allergy Unknown Drug Allergy Active REASON FOR VISIT Stage IV prostate cancer, History of skin cancer, Depression, Incontinence, Benign prostatic hypertrophy Medications Medication SIG (Take, Route, Frequency, [...] morning meal Orally Once a day Active Vitamin D3 25 MCG (1000 UT) TAKE 1 TABLET BY MOUTH EVERY DAY Active Darolutamide 300 MG 2 tablets Orally Twice a day Active Social History Tobacco Use: [...] Problem Status W/U Status Risk Notes Problem [id number] Weight loss, unintentional (R63.4) Active confirmed He has continued to lose a substantial weight. The cause is not apparent if it is not. The prostate cancer worsening. His treatment is on hold and he is being restaged. Problem Anemia ([id number]) Anemia, unspecified (D64.9) Active confirmed His hemoglobin and hematocrit are now in the normal range and this problem has resolved. Vital Signs Temperature 96.8 degrees Fahrenheit 09/04/19 25 Blood pressure systolic 140 mm Hg 09/04/19 25 Blood pressure diastolic 75 mm Hg 025 Heart Rate 77 /min 09/04/2024 Height 74 in 09/04/2024 Weight 196 lbs 09/04/2024 BMI 25.16 kg/m2 09/04/2024 Encounters Encounter Location Date Provider Diagnosis Wilfred Maynard III, MD [address] [place] [address] [place] [address] 09/04/2024 Wilfred Maynard Overweight E66.3 ; Prostate cancer C61 ; Weight loss, unintentional R63.4 ; Incontinence R32 and Anemia, unspecified D64.9 Assessments Encounter Date Diagnosis (ICD Code) Assessment Notes Treat ment Notes Treatment Clinical Notes 09/04/2024 Overweight (ICD-10 - E66.3) His body mass index is slightly over 25. He has lost weight recently. IRs and to maintain his weight at this level to a healthy nutritious diet. 09/04/2024 Prostate cancer (ICD-10 - C61) He has begun a new regimen of leuprolide and docetaxel and darolutamide. His PSA is low and likely not a reliable way to follow malignancy. He is being treated by medical oncology at [facility]. His review of symptoms and tolerating his treatment well. We have requested the records. 09/04/2024 Weight loss, unintentional (ICD-10 - R63.4) He has lost 10 pounds since last May. He says he is eating well. Comprehensive blood work with thyroid function tests were ordered. He remains slightly overweight. 09/04/2024 Incontinence (ICD-10 - R32) He continues to have intermittent incontinence of urine. He has adapted to this and is unimpaired and daily living. 09/04/2024 Anemia, unspecified (ICD-10 - D64.9) His hemoglobin and hematocrit are now in the normal range and this problem has resolved. Plan Of Treatment Medication Medication Name Sig Start Date Stop Date Notes amLODIPine Besylate 2.5 MG 1 tablet Orally Once a day oxyCODONE HCl 5 MG take 1 tablet by tequila th every 6 hours Oral Escitalopram Oxalate 10 MG TAKE 1 TABLET BY MOUTH DAILY Diagnosis Unavailable Oral for depression Omeprazole 10 MG 1 capsule 30 minutes before morning meal Orally Once a day Vitamin D3 25 MCG (1000 UT) TAKE 1 TABLET BY MOUTH EVERY DAY Darolutamide 300 MG 2 tablets Orally Twi ce a day Next Appt Details Follow Up: After visit to on cologist, Reason: To discuss the outcome of the visit to the oncologist and to assess the patient's condition. Progress Notes * Justin BRICENO ShielaDOB:[birth year] (69 yo M)Acc No.[id number]:09/04/2024 Progress Notes Patient: Justin TRIPP Provider: Rylie Maynard MD :1955 A ge:69 Y S ex:Male Date:09/04/2024 Address:[address] [place], [place] [id number] Pcp:PREETI HDEZ Subjective: * Chief Complaints: * S tage IV prostate cancerHistory of skin cancerDepressionIncontinenceBenign prostatic hypertrophy * HPI: C OVID-19 Screening: Questions H ave you had any new onset fever, chills, cough, congestion, sore throat, shortness of breath, muscle aches? N o * : The patient, Leroy, a 69-year-old male, presented with complaints of pain in both legs. The pain is described as constant and severe, affecting the patient's ability to climb stairs. The pain is located primarily below the knees, extending to the feet. The patient reports feeling as if his muscles are weighed down. The pain has been present for a while, but has worsened recently. The patient has been taking pain medication, specifically oxycodone, which provides some relief but does not alleviate the pain when climbing stairs. The patient also reports feeling extremely tired and has lost 10 lbs since his last visit in May. He also reports a decrease in appetite and a change in taste. The patient is currently under treatment for prostate cancer and is scheduled to see a medical oncologist. He also reports urinary incontinence. Blood Sugar Level is 85. * ROS: G eneral/Constitutional: Admits p ain, 4 out of 10 muscles of both thighs and both lower extremities, recently begun a new medication, no muscle weakness. C hills d enies.?Fatigue a dmits. F ever d enies. E [...] enitourinary: Frequent urination o nce a night. A dmits U rinary Incontinence. M usculoskeletal: Muscle aches d enies. P [...] prostatectomy 2008Prostate removal surgery 18 years ago No history * Hospitalization/Major Diagno stic Procedure: S hortness of breath 01/2020Shortness of breath 04/2020No history * Family History: F ather: 81 yrs, natural causes, , alcoholism. M other: 76 yrs, congestive heart failure, arthritis. S iblings: . M aternal uncle: . 3 brother(s) , 6 sister(s) . 1 [...] History: T obacco Use: T obacco Use/Smoking Myra forman is a n onsmoker A dditional Findings: Tobacco Non-User A ggressive non-smoker Rj parada is single and working. He was born in [place], [place]. He does not drink or smoke. 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 He enjoys drumming. He has one daughter. * Medications: T akingDarolutamide 300 MG Tablet 2 tablets Orally Twice a day oxyCODONE HCl 5 MG Tablet take 1 tablet by mouth every 6 hours Oral amLODIPine Besylate 2.5 MG Tablet 1 tablet Orally Once a day Omeprazole 10 MG Capsule Delayed Release 1 capsule 30 minutes before morning meal Orally Once a day Escitalopram Oxalate 10 MG Tablet TAKE 1 TABLET BY MOUTH DAILY Diagnosis Unavailable Oral , Notes to Pharmacist: for depressionVitamin D3 25 MCG (1000 UT) Tablet TAKE 1 TABLET BY MOUTH EVERY DAY Medication List reviewed and reconciled with the patientTaking Darolutamide 300 MG Tablet 2 tablets Orally Twice a day Taking oxyCODONE HCl 5 MG Tablet take 1 tablet by mouth every 6 hours Oral Taking amLODIPine Besylate 2.5 MG Tablet 1 tablet Orally Once a day Taking Omeprazole 10 MG Capsule Delayed Release 1 capsule 30 minutes before morning meal Orally Once a day Taking Escitalopram Oxalate 10 MG Tablet TAKE 1 TABLET BY MOUTH DAILY Diagnosis Unavailable Oral , Notes to Pharmacist: for depressionTaking Vitamin D3 25 MCG (1000 UT) Tablet TAKE 1 TABLET BY MOUTH EVERY DAY Medication List reviewed and reconciled with the patient * Allergies: N o Known Drug Allergyno[Allergies Verified] Objective: * Vitals: H t: 74, Wt:196, BMI:25.16, BP:140/75, HR:77, Temp:96.8, Ht-cm: 187.96, Wt-k.9. * Examination: G eneral Examination: GENERAL APPEARANCE: [...] normal. SKIN: n o suspicious lesions, anicteric, Much improved acne. HEART: n o clicks, gallops, murmurs, or [...] a lert, oriented. Assessment: * Assessment: 1. P rostate cancer - C61 (Primary) N otes :He has begun a new regimen of leuprolide and docetaxel and darolutamide. His PSA is low and likely not a reliable way to follow malignancy. He is being treated by medical oncology at [facility]. His review of symptoms and tolerating his treatment well. We have requested the records. 2 . O verweight - E66.3 N otes :His body mass index is slightly over 25. He has lost weight recently. IRs and to maintain his weight at this level to a healthy nutritious diet. 3 . W eight loss, unintentional - R63.4 N otes :He has lost 10 pounds since last May. He says he is eating well. Comprehensive blood work with thyroid function tests were ordered. He remains slightly overweight. 4 . I ncontinence - R32 N otes :He continues to have intermittent incontinence of urine. He has adapted to this and is unimpaired and daily living. 5 . A nemia, unspecified - D64.9 N otes :His hemoglobin and hematocrit are now in the normal range and this problem has resolved. Plan: * Treatment: * Procedure Codes: * Preventive Medicine: Counseling: C are goal follow-up plan: Counseling for abnormal BMI given Y es Above Normal BMI Follow-up D ietary management education, guidance, and counseling, Dietary needs education, Exercise promotion: strength training, Exercise promotion: stretching, Feeding regime, Giving encouragement to exercise, Lifestyle education regarding diet, Nutrition / feeding management, Nutrition therapy, Prescribed activity/exercise education, Prescribed diet education, Prescribed dietary intake, Special diet education, Weight monitoring , Intervention, Order not done: Medical or Other reason not done * Follow Up: A fter visit to oncologist (Reason: To discuss the outcome of the visit to the oncologist and to assess the patient's condition.) * Images: * Sign off status: Completed true * Provider: Rylie Maynard MD Date: 0 09/04/2024 Generated for Luís raygoza/Dennis/eTransmitting on: 10/22/2024 11:28 AM EST History and Physical Notes * HPI (History of Present Illness) Category Sub-Category Detail Notes COVID-19 Screening Questions Have you had any new onset fever, chills, cough, congestion, sore throat, shortness of breath, muscle aches?: No Examination Category Sub-Category Detail Notes General [...] intact SKIN: no suspicious lesion s, anicteric, Much improved acne PERIPHERAL PULSES: normal BREASTS: no masses palpable b ilaterally MUSCULOSKELETAL: extremities unremark able, no clubbing, cyanosis or edema LYMPH NODES: no enlarged lymph no nicole,spleen normal RECTAL EXAM: not examined PSYCH: alert, oriented ORAL CAVITY: normal, unremarkable
--- OUTSIDE RECORDS SUMMARY | 2024-09-04 06:37 | XMS_ITS ---
Author Organization Wilfred Maynard III, MD Address [address] [facility] [address] Care Team Providers Care Resource Program Teacher Name Role Phone PREETI HDEZ Primary Care Provider Unavailab Dr. Wilfred Marroquin III Unavailable REASON FOR VISIT Rx Message Social History Sex Assigned At : Social History Observation Description Sex Assigned At Male Encounters Encounter Location Date Provider Diagnosis Wilfred Maynard III, MD [address] [place] [address] [place] [address] 09/04/2024 Wilfred Maynard Plan Of Treatment No Information Progress Notes * Justin BRICENODOB:[birth year] (69 yo M)Acc No.[id number]:09/04/2024 Patient: Justin TRIPP :1955 A ge:69 Y S ex:Male Address:[address] [place], [place] * true * Date: Generated for Eberi jaret/Dennis/eTransmitting on: 1 10/22/2024 11:29 AM EST
--- OUTSIDE RECORDS SUMMARY | 2025-01-02 04:15 | XMS_ITS ---
Author Organization Wilfred Maynard III, MD Address [address] [place] [address] Care Team Providers Care Flatwork Supervisor Name Role Phone PREETI HDEZ Primary Care Provider Unavailab Dr. Wilfred Marroquin III Unavailable Allergies Allergen (clinical drug ingredient) Drug/Non Drug Allergy documented on EMR Reaction Allergy Type Onset Date Status No Known Drug Allergy Unknown Drug Allergy Active REASON FOR VISIT Stage IV prostate cancer, Weight loss, Urinary incontinence, Benign prostatic hypertrophy, Medications Medication SIG (Take, Route, Frequency, Duration) Notes Start Date End Date Status Omeprazole 10 MG 1 capsule 30 minutes before morning meal Orally Once a day Active Darolutamide 300 MG 2 tablets Orally Twi ce a day Active Escitalopram Oxalate 10 MG TAKE 1 TABLET BY MOUTH DAILY Diagnosis Unavailable Oral for depression Active Vitamin D3 25 MCG (1000 UT) TAKE 1 TABLET BY MOUTH EVERY DAY Active oxyCODONE HCl 5 MG take 1 tablet by tequila th every 6 hours Oral Active Lupron Depot (6-Month) 45 MG as directed Intramuscular 01/02/2025 Active amLODIPine Besylate 2.5 MG 1 tablet Orally Once a day Active Social History Tobacco Use: Social History Observation Description Date Details (start date - stop date) Never Smoker NA - NA Sex Assigned At : Social History Observation Description Sex Assigned At Male Tobacco Use/Smoking Question Answer Notes Patient is a nonsmoker Additional Findings: Tobacco Non-User Aggressive non-smoker Vital Signs Temperature 97.0 degrees Fahrenheit 01/03/20 25 Blood pressure systolic 133 mm Hg 01/03/20 25 Blood pressure diastolic 70 mm Hg 025 Heart Rate 66 /min 01/02/2025 Height 74 in 01/02/2025 Weight 175 lbs 01/02/2025 BMI 22.47 kg/m2 01/02/2025 Encounters Encounter Location Date Provider Diagnosis Wilfred Maynard III, MD [address] [place] [address] [address] [place], [place] [id number] 01/02/2025 Wilfred Maynard Prostate cancer C61 ; Incontinence R32 ; Osteopenia M85.80 ; Benign prostatic hypertrophy N40.0 ; Reactive depression F32.9 and Weight loss, unintentional R63.4 Assessments Encounter Date Diagnosis (ICD Code) Assessment Notes Treat ment Notes Treatment Clinical Notes 01/02/2025 Prostate cancer (ICD-10 - C61) He recently had CT scans of the chest and abdomen and this morning had an MRI. The results are at [facility] and not available to me but will be requested. He is currently being restaged due to his weight loss. 01/02/2025 Incontinence (ICD-10 - R32) He continues to have intermittent incontinence of urine. He has adapted to this and is unimpaired and daily living. 01/02/2025 Osteopenia (ICD-10 - M85.80) He will continue on his current regimen. He will be followed for osteoporosis. He is at risk due to a low testosterone. I recommended 500 mg of calcium twice a day with vitamin D. 01/02/2025 Benign prostatic hypertrophy (ICD-10 - N40.0) He rises from sleep once or twice a night to urinate. He is occasionally incontinent. We discussed lifestyle modifications way to reduce nocturia. 01/02/2025 Reactive depression (ICD-10 - F32.9) He will [...] of medical oncology and prostate cancer management. 01/02/2025 Weight loss, unintentional (ICD-10 - R63.4) He has continued to lose a substantial weight. The cause is not apparent if it is not. The prostate cancer worsening. His treatment is on hold and he is being restaged. Plan Of Treatment Medication Medication Name Sig Start Date Stop Date Notes Omeprazole 10 MG 1 capsule 30 minutes before morning meal Orally Once a day Darolutamide 300 MG 2 tablets Orally Twi ce a day Escitalopram Oxalate 10 MG TAKE 1 TABLET BY MOUTH DAILY Diagnosis Unavailable Oral for depression Vitamin D3 25 MCG (1000 UT) TAKE 1 TABLET BY MOUTH EVERY DAY oxyCODONE HCl 5 MG take 1 tablet by tequila th every 6 hours Oral Lupron Depot (6-Month) 45 MG as directed Intramuscular 01/02/2025 amLODIPine Besylate 2.5 MG 1 tablet Orally Once a day Next Appt Details Follow Up: 6 Months, Reason: ov Progress Notes * BRICENOJustinDOB:[birth year] (69 yo M)Acc No.[id number]:01/02/2025 Progress Notes Patient: Justin TRIPP Provider: Rylie Maynard MD :1955 A ge:69 Y S ex:Male Date:01/02/2025 Address:[address] [place], [place] [id number] Pcp:PREETI HDEZ Subjective: * Chief Complaints: * S tage IV prostate cancerWeight lossUrinary incontinenceBenign prostatic hypertrophy, * HPI: C OVID-19 Screening: Rj is primary care physician is now ANETA Felipe at [facility]. He is under the care of medical oncology and radiation therapy at [facility] in [place], [place]. He has lost substantial weight recently, 21 pound since his last visit.? He is being restaged with images. He had a CT scan of the chest and abdomen yesterday and an MRI this morning. H is treatment with darolutamide has been on hold. His last PET/CT scan was negative. He will see a nurse practitioner in medical oncology next .He also has an appointment in the near future with the [facility] in [place]. Questions H ave you had any new onset fever, chills, cough, congestion, sore throat, shortness of breath, muscle aches? N o * ROS: G eneral/Constitutional: pain T horacic spine, otherwisse only normal aches and pains. C hills d enies. F atigue a dmits. F ever d enies. E NT: Decreased hearing d enies. R espiratory: Cough d enies. C ardiovascular: Chest pain with exertion d enies. D yspnea on exertion?denies. S hortness of breath d enies. G astrointestinal: Constipation o ccasional. D ecreased appetite t hat is associated with weight loss. D iarrhea d enies. H eartburn d enies. N ausea?denies. R ectal bleeding d enies. V omiting [...] single and working. He was born in [place], [place]. He does not drink or smoke. 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 He enjoys drumming. He has one daughter. * Medications: T akingLupron Depot (6-Month) 45 MG Kit as directed Intramuscular Vitamin D3 25 MCG (1000 UT) Tablet TAKE 1 TABLET BY MOUTH EVERY DAY oxyCODONE HCl 5 MG Tablet take 1 tablet by mouth every 6 hours Oral amLODIPine Besylate 2.5 MG Tablet 1 tablet Orally Once a day Omeprazole 10 MG Capsule Delayed Release 1 capsule 30 minutes before morning meal Orally Once a day Escitalopram Oxalate 10 MG Tablet TAKE 1 TABLET BY MOUTH DAILY Diagnosis Unavailable Oral , Notes to Pharmacist: for depressionDarolutamide 300 MG Tablet 2 tablets Orally Twice a day Medication List reviewed and reconciled with the patientTaking Lupron Depot (6-Month) 45 MG Kit as directed Intramuscular Taking Vitamin D3 25 MCG (1000 UT) Tablet TAKE 1 TABLET BY MOUTH EVERY DAY Taking oxyCODONE HCl 5 MG Tablet take [...] Oral , Notes to Pharmacist: for depressionTaking Darolutamide 300 MG Tablet 2 tablets Orally Twice a day Medication List reviewed and reconciled with the patient * Allergies: N o Known Drug Allergyno[Allergies Verified] Objective: * Vitals: H t: 74, Wt:175, BMI:22.47, BP:133/70, HR:66, Temp:97.0, Ht-cm: 187.96, Wt-k.38. * Examination: G eneral Examination: GENERAL APPEARANCE: p leasant, well nourished, well developed, in no acute distress, calm and relaxed, man. HEAD: a traumatic, normocephalic. EYES: e [...] normal, no s3, or vascular bruits. LUNGS: , diminished breath sounds throughout, no wheezes, rales, rhonchi, good air movement. BREASTS: no masses palpable bilaterally. ABDOMEN: b owel sounds normal, no ascites, no organomegaly, no mass. RECTAL EXAM: n ot examined. MUSCULOSKELETAL: e xtremities unremarkable, no clubbing, cyanosis or edema, Radiation changes round lower thoracic spine, decreased range of motion thoracic spine. PERIPHERAL PULSES: n ormal. NEUROLOGIC: a lert and oriented, cranial nerves 2-12 grossly intact, deep tendon reflexes 2+ symmetrical, motor strength normal upper and lower extremities, sensory exam intact. PSYCH: a lert, oriented. Assessment: * Assessment: 1. P rostate cancer - C61 (Primary) N otes :He recently had CT scans of the chest and abdomen and this morning had an MRI. The results are at [facility] and not available to me but will be requested. He is currently being restaged due to his weight loss. 2 . I ncontinence - R32 N otes :He continues to have intermittent incontinence of urine. He has adapted to this and is unimpaired and daily living. 3 . O steopenia - M85.80 N otes :He will continue on his current regimen. He will be followed for osteoporosis. He is at risk due to a low testosterone. I recommended 500 mg of calcium twice a day with vitamin D. 4 . B enign prostatic hypertrophy - N40.0 N otes :He rises from sleep once or twice a night to urinate. He is occasionally incontinent. We discussed lifestyle modifications way to reduce nocturia. 5 . R eactive depression - F32.9 N otes :He will need to be restaged. We need [...] of medical oncology and prostate cancer management. 6 . W eight loss, unintentional - R63.4 N otes :He has continued to lose a substantial weight. The cause is not apparent if it is not. The prostate cancer worsening. His treatment is on hold and he is being restaged. Plan: * Treatment: 2. O thers Continue Vitamin D3 Tablet, 25 MCG (1000 UT), TAKE 1 TABLET BY MOUTH EVERY DAY; C ontinue oxyCODONE HCl Tablet, 5 MG, take 1 tablet by mouth every 6 hours, Oral; C ontinue amLODIPine Besylate Tablet, 2.5 MG, 1 tablet, Orally, Once a day; C ontinue Omeprazole Capsule Delayed Release, 10 MG, 1 capsule 30 minutes before morning meal, Orally, Once a day; C ontinue Escitalopram Oxalate Tablet, 10 MG, TAKE 1 TABLET BY MOUTH DAILY Diagnosis Unavailable, Oral, Notes to Pharmacist: for depression; C ontinue Darolutamide Tablet, 300 MG, 2 tablets, Orally, Twice a day. * Procedure Codes: * Preventive Medicine: Counseling: C are goal follow-up plan: Counseling for abnormal BMI given Y es Above Normal BMI Follow-up D ietary management education, guidance, and counseling, Dietary needs education * Follow Up: 6 Months (Reason: ov) * Images: * Sign off status: Completed true * Provider: Rylie Maynard MD Date: 0 01/02/2025 Generated for Luís raygoza/Dennis/Supriyaitting on: 10/22/2024 11:30 AM EST History and Physical Notes * HPI (History of Present Illness) Category Sub-Category Detail Notes COVID-19 Screening Questions Have you had any new onset fever, chills, cough, congestion, sore throat, shortness of breath, muscle aches?: No Examination Category Sub-Category Detail Notes General Examination GENERAL APPEARANCE: pleasant , well nourished, well developed, in no acute distress, calm and relaxed, man HEAD: atraumatic, normocep halic EYES: eomi, perrla, anicte dave, conjugate EARS: normal NOSE: septum intact NECK/THYROID: no jugular venous di stention, no carotid bruit, thyroid normal HEART: no clicks, gallops, murmurs, or rubs, regular rhythm, S1, S2 normal, no s3, or vascular bruits LUNGS: , diminished breath sounds throughout, no wheezes, rales, rhonchi, good air movement ABDOMEN: bowel sounds normal, no ascites, no organomegaly, no mass NEUROLOGIC: alert and oriented, cranial nerves 2-12 grossly intact, deep tendon reflexes 2+ symmetrical, motor strength normal upper and lower extremities, sensory exam intact SKIN: no suspicious lesion s, anicteric PERIPHERAL PULSES: normal BREASTS: no masses palpable b ilaterally MUSCULOSKELETAL: extremities unremark able, no clubbing, cyanosis or edema, Radiation changes round lower thoracic spine, decreased range of motion thoracic spine LYMPH NODES: no enlarged lymph no nicole,spleen normal RECTAL EXAM: not examined PSYCH: alert, oriented ORAL CAVITY: normal, unremarkable
--- OUTSIDE RECORDS SUMMARY | 2025-02-06 09:11 | XMS_ITS ---
Author Organization Wilfred Maynard III, MD Address [address] [facility] [place] [address] Care Team Providers Care Computer Typesetter Name Role Phone PREETI HDEZ Primary Care Provider Unavailab Dr. Wilfred Marroquin III Unavailable REASON FOR VISIT FYI Social History Sex Assigned At : Social History Observation Description Sex Assigned At Male Encounters Encounter Location Date Provider Diagnosis Wilfred Maynard III, MD [address] [place] [address] [place] [address] 02/06/2025 Wilfred Maynard Plan Of Treatment No Information Progress Notes * Justin BRICENODOB:[birth year] (69 yo M)Acc No.[id number]:02/06/2025 Patient: Justin TRIPP :1955 A ge:69 Y S ex:Male Address:[address] [place], [place] * true * Date: Generated for Eberi jaret/Dennis/eTransmitting on: 1 10/22/2024 11:27 AM EST
--- OUTSIDE RECORDS SUMMARY | 2025-02-21 08:23 | XMS_ITS ---
Author Organization Wilfred Maynard III, MD Address [address] [facility] [place] [address] Care Team Providers Care Quarantine Inspector Name Role Phone PREETI HDEZ Primary Care Provider Unavailab Dr. Wilfred Marroquin III Unavailable [phone] REASON FOR VISIT FYI Social History Sex Assigned At : Social History Observation Description Sex Assigned At Male Encounters Encounter Location Date Provider Diagnosis Wilfred Maynard III, MD [address] [place] [address] [place] [address] 02/21/2025 Wilfred Maynard Plan Of Treatment No Information Progress Notes * Justin BRICENODOB:[birth year] (69 yo M)Acc No.[id number]:02/21/2025 Patient: Justin TRIPP :1955 A ge:69 Y S ex:Male Address:[address] [place], [place] * true * Date: Generated for Eberi jaret/Dennis/eTransmitting on: 1 10/22/2024 11:30 AM EST
--- OUTSIDE RECORDS SUMMARY | 2025-07-05 04:30 | XMS_ITS ---
Author Organization Wilfred Maynard III, MD Address [address] [place] [address] Care Team Providers Care Local Truck Driver Name Role Phone PREETI HDEZ Primary Care Provider Unavailab Dr. Wilfred Marroquin III Unavailable Allergies Allergen (clinical drug ingredient) Drug/Non Drug Allergy documented on EMR Reaction Allergy Type Onset Date Status No Known Drug Allergy Unknown Drug Allergy Active REASON FOR VISIT Follow Up Medications Medication SIG (Take, Route, Frequency, Duration) Notes Start Date End Date Status oxyCODONE HCl 5 MG take 1 tablet by tequila th every 6 hours Oral Active Escitalopram Oxalate 10 MG TAKE 1 TABLET BY MOUTH DAILY Diagnosis Unavailable Oral for depression Active Darolutamide 300 MG 2 tablets Orally Twi ce a day Active amLODIPine Besylate 2.5 MG 1 tablet Orally Once a day Active Omeprazole 10 MG 1 capsule 30 minutes before morning meal Orally Once a day Active Lupron Depot (6-Month) 45 MG as directed Intramuscular 01/02/2025 Active Vitamin D3 25 MCG (1000 UT) TAKE 1 TABLET BY MOUTH EVERY DAY Active Social History Tobacco Use: Social History Observation Description Date Details (start date - stop date) Never Smoker NA - NA Sex Assigned At : Social History Observation Description Sex Assigned At Male Tobacco Use/Smoking Question Answer Notes Patient is a nonsmoker Additional Findings: Tobacco Non-User Aggressive non-smoker Encounters Encounter Location Date Provider Diagnosis Wilfred Maynard III, MD [address] [place] [address] [place] [address] 07/05/2025 Wilfred Maynard Prostate cancer C61 Assessments Encounter Date Diagnosis (ICD Code) Assessment Notes Treatment Notes Treatment Clinical Notes 07/05/2025 Prostate cancer (ICD-10 - C61) He recently had CT scans of the chest and abdomen and this morning had an MRI. The results are at [facility] and not available to me but will be requested. He is currently being restaged due to his weight loss. Plan Of Treatment Medication Medication Name Sig Start Date Stop Date Notes oxyCODONE HCl 5 MG take 1 tablet by tequila th every 6 hours Oral Escitalopram Oxalate 10 MG TAKE 1 TABLET BY MOUTH DAILY Diagnosis Unavailable Oral for depression Darolutamide 300 MG 2 tablets Orally Twi ce a day amLODIPine Besylate 2.5 MG 1 tablet Orally Once a day Omeprazole 10 MG 1 capsule 30 minutes before morning meal Orally Once a day Lupron Depot (6-Month) 45 MG as directed Intramuscular 01/02/2025 Vitamin D3 25 MCG (1000 UT) TAKE 1 TABLET BY MOUTH EVERY DAY Progress Notes * Justin BRICENODOB:[birth year] (70 yo M)Acc No.[id number]:07/05/2025 Progress Notes Patient: Nehal MONTANASTEFANJustin J Provider: Rylie Maynard MD :1955 A ge:70 Y S ex:Male Date:07/05/2025 Address:[address] [place], [place] [id number] Pcp:PREETI HDEZ Subjective: * Chief Complaints: * 1 . Follow Up. * HPI: C OVID-19 Screening: Questions H ave you had any new onset fever, chills, cough, congestion, sore throat, shortness of breath, muscle aches? N o * ROS: G eneral/Constitutional: pain o nly normal aches and pains. C hills d enies.?Fatigue a dmits. F ever d enies. E NT: Decreased hearing d enies. R espiratory: Cough d enies. C ardiovascular: Chest pain with exertion d enies. D yspnea on exertion?denies. S hortness of breath d enies. G astrointestinal: Constipation d enies. D ecreased appetite d enies.?Diarrhea d enies. H eartburn d enies. N ausea d enies. R ectal bleeding?denies. V omiting d enies. H ematology: bruising [...] Depressed mood d enies. * Medical History: B wilber cell cancer, chest, Sebaceous cysts, stage IV adenocarcinoma prostate Darvin 7 (4+3 ), GERD, Depression, Hyperlipidemia, Osterarthritis left knee 2018. * Surgical History: b iopsy of prostate 2005, radical prostatectomy 2007, Prostate removal surgery 18 years ago , No history . * Hospitalization/Major Diagno stic Procedure: S hortness of breath 01/2020, Shortness of breath 04/2020, No history . * Family History: F ather: 81 yrs, [...] single and working. He was born in [place], [place]. He does not drink or smoke. 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 He enjoys drumming. He has one daughter. * Medications: T aking oxyCODONE HCl 5 MG Tablet take 1 tablet by mouth every 6 hours Oral , Taking amLODIPine Besylate 2.5 MG Tablet 1 tablet Orally Once a day , Taking Omeprazole 10 MG Capsule Delayed Release 1 capsule 30 minutes before morning meal Orally Once a day , Taking Escitalopram Oxalate 10 MG Tablet TAKE 1 TABLET BY MOUTH DAILY Diagnosis Unavailable Oral , Notes to Pharmacist: for depression, Taking Darolutamide 300 MG Tablet 2 tablets Orally Twice a day , Taking Lupron Depot (6-Month) 45 MG Kit as directed Intramuscular , Taking Vitamin D3 25 MCG (1000 UT) Tablet TAKE 1 TABLET BY MOUTH EVERY DAY , Medication List reviewed and reconciled with the patient * Allergies: N o Known Drug Allergy. Objective: * Vitals: * Examination: G eneral Examination: GENERAL APPEARANCE: p leasant, well nourished, well developed, in no acute distress, calm and relaxed. HEAD: a traumatic, normocephalic. EYES: e vidal, [...] Assessment: 1. P rostate cancer - C61 N otes :He recently had CT scans of the chest and abdomen and this morning had an MRI. The results are at [facility] and not available to me but will be requested. He is currently being restaged due to his weight loss. Plan: * Treatment: 2. O thers Continue [...] 2 tablets, Orally, Twice a day. * Images: * The named appointment provid er may or may not be the originator of this progress note, and it is not deemed complete until electronically signed by the appointment provider. Sign off status: Pending * Provider: Rylie Maynard MD Date: 09/04/2024 Generated for Luís raygoza/Dennis/Diego on: 10/22/2024 11:29 AM EST History and Physical Notes * HPI (History of Present Illness) Category Sub-Category Detail Notes COVID-19 Screening Questions Have you had any new onset fever, chills, cough, congestion, sore throat, shortness of breath, muscle aches?: No Examination Category Sub-Category Detail Notes General Examination GENERAL APPEARANCE: pleasant , well nourished, well developed, in no acute distress, calm and relaxed HEAD: atraumatic, normocep halic EYES: eomi, perrla, [...]
--- NOTE | 2025-08-21 10:23 | MHC.PC.OV ---
Vital Signs 08/21/25 10:24 Height 6 ft 3 in Weight 144 lb BMI 18.0 BP 112/70 Blood Pressure Location Lt brachial Position Sitting Pulse 90 Pulse Source Pulse Oximeter Temp 97.1 F Temp Source Temporal Artery Scan Pulse Oximetry (%) 97 Oxygen Delivery Method Room Air Intake Visit Reasons: hospital Follow up Intake Note: Patient is here for hospital discharge follow up. Patient was discharged from [facility] on 08/15/25 . Sensor Specialist Required: No Airway Traffic Controller: Present Accompanied by: Daughter Allergies [id number] Reductase Inhibitor Adverse Reaction (Intermediate, Verified 08/21/25 11:30) Joint and muscle pain Medication List - Last Reconciled 08/21/25 by Gadiel Tripp PA-C cholecalciferol (vitamin D3) 25 mcg PO DAILY dexamethasone 2 mg PO DAILY escitalopram oxalate 20 mg PO DAILY 30 days fentanyl 75 mcg/hr 1 patch topical Q3D omeprazole 40 mg PO DAILY ondansetron 4 mg PO Q8H PRN oxycodone 10 mg PO Q4H PRN 28 days sennosides (senna) 8.6 mg PO BID Tobacco use date assessed: 08/21/25 Fall risk assessment: No Falls in past year Last assessed Fall Risk: 08/21/25 Dental Screening Dental Screen Date: 10/26/24 [facility] hospital Follow up HPI Details Patient is 70-year-old male here today for hospital discharge follow up. Patient has a past medical history significant for hyperlipidemia, prostate cancer with Mets to rib, hypertension and major depressive disorder. Patient recently admitted to [facility] for nausea vomiting and progressive weight loss. He was not able to eat due to lose continued nausea and vomiting. He had a approximately 80 lb weight loss over the last year. He underwent an EGD which was normal the exception of a small hiatal hernia. He did admit to poor pain control even on fentanyl patch and oxycodone. Now has a PICC line and has been receiving TPN, Was also found to have low-sodium while in the hospital likely secondary to poor oral intake though also concerned about Lexapro be cause of his hyponatremia thus Lexapro has been on hold. He is currently living at his daughter's house whom is taking care of him, does see palliative Care and Oncology whom are managing his cancer related pain with fentanyl patches and oxycodone. Today's concern is his bilateral ear blockage, he is interested in getting his ears lavaged. [facility] Medical History Pure hypercholesterolemia Benign essential hypertension BRBPR (bright red blood per rectum) Pathologic rib fracture Acute upper gastrointestinal bleeding Annual physical exam Cough Right shoulder pain Prostate cancer Borderline high cholesterol Other forms of dyspnea Achilles tendon pain Hypogonadism in male HTN (hypertension) MDD (major depressive disorder), recurrent episode Anxiety Asthma Prostate cancer metastatic to bone Surgical History H/O endoscopy H/O prostatectomy Family History Father Pneumonia Substance abuse Mother CAD (coronary artery disease) CHF (congestive heart failure) Brother Stomach cancer Substance abuse Sister Breast cancer Substance abuse Social History Household Members: Friend(s) Housing: House Do you presently have visiting nurse or other home services: No Alcohol intake: never Patient Tobacco Use Status: Never used Tobacco Years Smoked: 40 yrs e-Cigarette/Vaping Use: Never Used Second Hand Smoke Exposure: No Substance Use Type: Marijuana service: No Current occupational status: unemployed Current occupation: [employer] Cognitive needs: No Hearing needs: No Vision needs: Yes (Pt went to an eye doctor about 4 years ago. ) Questionnaire Thrive Questionnaire Date Thrive assessed: 12/25/24 I am a: Patient What is your living situation today?: I have a steady place to live Within the past 12 months, did the food you bought not last and you didn't have the money to get more?: Never true Within the past 12 months, did you worry whether your food would run out before you got money to buy more?: Never true Do you have trouble paying for medicines?: No Do you have trouble getting transportation to medical appointments?: No Do you have trouble paying your heating and electricity bill?: No Do you have trouble taking care of your child, family member or friend?: No Do you have trouble with day-to-day activities such as bathing, preparing meals, shopping, managing finances, etc.?: Yes Are you currently unemployed and looking for a job?: No Are you interested in more education?: No Currently or been in a relationship where the following occur: No concerns reported THRIVE Score: 0 GABRIELE-7 AMB Questionnaire GABRIELE-7 Date GABRIELE - 7 assessed: 12/25/24 Source: Developed by Drs. Wilfred Obando, Darshana Vaz, Chip Maya and colleagues, with an educational damion from [employer]. Review of Systems Const Denies headache(s) Eyes Denies loss of vision ENT Denies vertigo, Denies dizziness, Denies headache(s) and Denies sore throat Card Denies chest pain, Denies leg edema and Denies lightheadedness Resp Denies cough, Denies hemoptysis and Denies wheezing GI Denies abdominal pain, Denies melena, Denies constipation, Denies diarrhea and Denies vomiting Denies dysuria, Denies urinary frequency and Denies urinary urgency Musc Denies arthralgias, Denies joint swelling, Denies numbness and Denies tingling Neuro Denies Abnormal speech present, Denies behavioral changes, Denies vertigo, Denies dizziness, Denies headache(s), Denies loss of vision, Denies memory loss, Denies numbness and Denies tingling Psych Denies anxiety, Denies behavioral changes, Denies depression, Denies memory loss and Denies panic attacks Yasir/Lymph Denies easy bleeding and Denies easy bruising Aller/Immun Denies wheezing Physical exam (Primary Care) Vital Signs: Last Vital Signs Temp 97.1 F 08/21/25 10:24 Pulse 90 08/21/25 10:24 BP 112/70 08/21/25 10:24 Pulse Ox 97 08/21/25 10:24 Oxygen Delivery Method Room Air 08/21/25 10:24 BMI result Body Mass Index 18.0 Tobacco/Smoking Status: Tobacco use Status Tobacco use date assessed 08/21/25 08/21/25 10:28 Patient Tobacco Use Status Never used Tobacco 08/21/25 10:28 e-Cigarette/Vaping Use Never Used 08/21/25 10:28 Thrive Assessment: Date of Thrive Assessment Date Thrive assessed 12/25/24 08/21/25 10:28 Currently or been in a relationship where the following occur: No concerns reported Const Other: VERY THIN-APPEARING General: no acute distress, alert and awake Nutritional Appearance: well nourished Orientation/consciousness: oriented to person, oriented to place and oriented to time HENMT Other: -NOTED CERUMEN IMPACTION AND RIGHT EXTERNAL CANAL Ears: TM's normal bilaterally General nose exam: Normal nasal mucous membranes and turbinates present Eyes Conjunctivae: conjunctivae normal Sclerae: sclerae normal Pupils: Equal, round and reactive pupils present Neck Neck: Yes no lymphadenopathy and Yes no JVD Thyroid: Thyroid normal Carotids: no bruits Resp Effort & Inspection: normal respiratory effort and not tachypneic Auscultation: no crackles, no rales, no rhonchi and no wheezes Cardio Rate: regular rate Rhythm: regular rhythm Heart sounds: no murmurs and normal S1 and S2 GI Palpation (GI): Soft to palpation, nontender, no hepatomegaly and no splenomegaly Auscultation: normal bowel sounds Skin General skin exam: no rashes or lesions noted and dry skin Neuro General: oriented to person, oriented to place and oriented to time Cranial nerves: Yes Equal, round and reactive pupils present Speech: No Abnormal speech present Gait exam (Neuro): Normal gait present Motor exam (neuro): no tremor noted Extrem Right upper extremity: full ROM Left upper extremity: full ROM Right lower extremity: full ROM; no edema Left lower extremity: full ROM; no edema Psych Mental Status: mental status grossly normal Speech and movement: Normal speech and movement present Affect: normal affect Attitude: cooperative Thought process: Normal thought process present Office Procedures Cerumen Removal From which ear canal was the cerumen removed: right Removal: irrigation and otoscope w/curette Notes: patient tolerated procedure well [id number] Irrigation/Lavage Coding Level of Care Code TCM Mod MDM <= 7 Days Diagnoses Hospital discharge follow-up Z51.89 Moderate episode of recurrent major depressive disorder F33.1 Major depression episode severity: moderate Prostate cancer metastatic to bone C61; C79.51 CPT Codes Office Procedure - CPT: 52089-Fie Irrigation/Lavage ([id number]) Assessment & Plan Assessment & Plan (1) Hospital discharge follow-up: Code(s): Z51.89 - Encounter for other specified aftercare Category: Medical Plan: As per HPI (2) MDD (major depressive disorder), recurrent episode: Code(s): F33.9 - Major depressive disorder, recurrent, unspecified Category: Medical Qualifiers: Major depression episode severity: moderate Qualified Code(s): F33.1 - Major depressive disorder, recurrent, moderate Plan: Patient recently was taken off of Lexapro during his hospitalization due to low-sodium. Low-sodium likely related to his poor oral intake. Lexapro has been restarted at 20 mg daily to help his mood. (3) Prostate cancer metastatic to bone: Comment: Intermittent hormone therapy Code(s): C61 - Malignant neoplasm of prostate; C79.51 - Secondary malignant neoplasm of bone Category: Medical Plan: As per HPI patient has prostate cancer metastasized to thoracic spine and rib. Continues to have pain that has been difficult to control. He is seeing palliative care whom is managing his cancer related pain with fentanyl patches and oxycodone. He has lost significant amount of weight due to poor oral intake and living with his daughter. Again during hospitalization did undergo an endoscopy which did not show any Gastric or duodenal start though did show a mild hiatal hernia He does have a PICC line and to receive TPN for nutrition which has been helpful. Medications: Refilled escitalopram oxalate 20 mg PO DAILY 30 tabs 6RF 30 days F33.2 - Major depressive disorder, recurrent severe without psychotic features
[2025-08-21 10:24] VITALS: BP 112/70; PULSE 90; TEMP 36.2; O2SAT 97; BMI 18.0
--- OUTSIDE RECORDS SUMMARY | 2025-08-21 11:24 | XMS_ITS | Encounter Summary ---
Author Organization [facility] Address [address] [place] [address] [address] [place] [address] Phone Care Team Providers Care Handwriting Expert Name Role Phone Chirag River MD Primary Care Provider Wilfred Maynard MD Unavailable + [phone] Vira Nur MD Unavailable [phone] Gadiel Tripp Unavailable + [phone] Wilfred Maynard MD Unavailable + [phone] Leslie Coello RN Unavailable [email or web address] Scott HooperBS Unavailable [phone] Gadiel Tripp Primary Care Provider + Chanel Whitt NP Unavailable [phone] Encounter Details Date Type Department Care Team (Late st Contact Info) Description 04/22/2023 Procedure Pass [facility], Ct Scan - [address] [address] Social History Tobacco Use Types Packs/Day Years [...] Care Team (Late st Contact Info) Description 09/13/2025 2:20 PM EST Office Visit [facility] Hematology Oncology Clinic at [address] [address] Scott Hooper, [address] [address] [email or web address] 09/13/2025 2:40 PM EST Nutrition [facility] Hematology Oncology Clinic at [address] [address] Scott Hooper MBBS [address] [place] [address] [email or web address] 09/25/2025 10:30 AM EST Office Visit [facility] Gastroenterology Clinic [address] [place] [address] Jenn Dang PA-C [address] [address] documented as of this encounter Visit Diagnoses Not on filedocumented in this encounter Care Teams Handwriting Expert Relationship Specialty Start Date End Date Chirag River MD [address] [place] [address] Dr Solano [address] [place] [phone] PCP - General Internal Medicine 06/21/15 12/18/24 Gadiel Tripp PA [address] [place] [id number] PCP - General Physician Restaurant Operations Manager 12/19/24 Wilfred Maynard MD [address] [place] [address] Dr Solano [address] [place] [phone] Referring Physician Internal Medicine 11/19/15 Vira Nur MD [address] [place] [phone] [email or web address] 04/16/23 Gadiel Tripp PA [address] [place] [address] Physician Restaurant Operations Manager 04/16/23 Wilfred Maynard MD [address] [place] [address] [place] [address] Referring Physician Medical Oncology 04/16/23 Leslie Coello, FLAKITO [address] [place] [id number] [email or web address] Primary Infusion Nurse 02/22/24 Scott Hooper MBBS [address] [place] [phone] [email or web address] 03/01/24 Chanel Whitt NP [address] [place] [phone] [email or web address] Nurse Practitioner Nurse Practitioner 06/01/25 documented as of this encounter Additional Source Comments The information contained in this document represents components of the legal health record. It is not the complete legal health record.[facility]
--- OUTSIDE RECORDS SUMMARY | 2025-08-21 11:24 | XMS_ITS | Patient Health Record ---
Author Organization Wilfred Maynard III, MD Address [address] [facility] [place] [address] Care Team Providers Care Kitchen And Bath Designer Name Role Phone PREETI HDEZ Primary Care Provider UnavailDr. Wilfred Araujo III Unavailable Allergies Allergen (clinical drug ingredient) Drug/Non Drug Allergy documented on EMR Reaction Allergy Type Onset Date Status No Known Drug Allergy Unknown Drug Allergy Active Reason For Referral No Information Medications Medication SIG (Take, Route, Frequency, Duration) Notes Start Date End Date Status Lupron Depot (6-Month) 45 MG as directed Intramuscular 01/02/2025 Active oxyCODONE HCl 5 MG take 1 tablet by tequila th every 6 hours Oral Active Vitamin D3 25 MCG (1000 UT) TAKE 1 TABLET BY MOUTH EVERY DAY Active Escitalopram Oxalate 10 MG TAKE 1 [...] Status W/U Status Risk Notes Problem Overweight (888343727) Overweight (E66.3) Active confirmed His body mass index is slightly over 25. He has lost weight recently. IRs and to maintain his weight at this level to a healthy nutritious diet. Problem 77877286 Hyperglycemia (R73.9) Active confirmed Most recent glucose is 116. This will be followed carefully. A hemoglobin A1c will be ordered. Problem [id number] Prostate cancer (C61) Active confirmed He recently had CT scans of the chest and abdomen and this morning had an MRI. The results are at [facility] and not available to me but will be requested. He is currently being restaged due to his weight loss. Problem Anemia (369601333) Anemia, unspecified (D64.9) Active confirmed His hemoglobin and hematocrit are now in the normal range and this problem has resolved. Problem Vitamin D deficiency (14217307) Vitamin D deficiency, unspecified (E55.9) Active confirmed He was continued on vitamin D. He is known to have osteopenia. Problem 935706885 Skin cancer, basal cell (C44.91) Active confirmed There is no sign of any new skin cancer. Problem 27022326 Incontinence (R32) Active confirmed He continues to have intermittent incontinence of urine. He has adapted to this and is unimpaired and daily living. Problem 856338575 Osteopenia (M85.80) Active confirmed He will continue on his current regimen. He will be followed for osteoporosis. He is at risk due to a low testosterone. I recommended 500 mg of calcium twice a day with vitamin D. Problem 893023309 Benign prostatic hypertrophy (N40.0) Active confirmed He rises from sleep once or twice a night to urinate. He is occasionally incontinent. We discussed lifestyle modifications way to reduce nocturia. Problem 65913869 Reactive depression (F32.9) Active confirmed He will [...] medical oncology and prostate cancer management. Problem 893585064 Weight loss, unintentional (R63.4) Active confirmed He [...] Date Provider Diagnosis Wilfred Maynard III, MD [address] [place] [address] [place] [address] 09/04/2024 Wilfred Maynard Overweight E66.3 ; Prostate cancer C61 ; Weight loss, unintentional R63.4 ; Incontinence R32 and Anemia, unspecified D64.9 Wilfred Maynard III, MD [address] [place] [address] [place] [address] 01/02/2025 Wilfred Maynard Prostate cancer C61 ; Incontinence R32 ; Osteopenia M85.80 ; Benign prostatic hypertrophy N40.0 ; Reactive depression F32.9 and Weight loss, unintentional R63.4 Wilfred Maynard III, MD [address] [place] [address] [place] [address] 09/04/2024 Wilfred Maynard III, MD [address] [place] [address] [place] [address] 02/06/2025 Wilfred Maynard III, MD [address] [place] [address] [place] [address] 02/21/2025 Wilfred Maynard Assessments Encounter Date Diagnosis [...] is being treated by medical oncology at [facility]. His review of symptoms and tolerating his treatment well. We have requested the records. 01/02/2025 Prostate cancer (ICD-10 - C61) He recently had CT scans of the chest and abdomen and this morning had an MRI. The results are at [facility] and not available to me but will be requested. He is currently being restaged due to his weight loss. 01/02/2025 Incontinence (ICD-10 - R32) He continues to have intermittent incontinence of urine. He has adapted to this and is unimpaired and daily living. 09/04/2024 Weight loss, unintentional (ICD-10 - R63.4) [...] twice a day with vitamin D. 09/04/2024 Incontinence (ICD-10 - R32) He continues to have intermittent incontinence of urine. He has adapted to this and is unimpaired and daily living. 01/02/2025 Benign prostatic hypertrophy (ICD-10 - N40.0) He rises from sleep once or twice a night to urinate. He is occasionally incontinent. We discussed lifestyle modifications way to reduce nocturia. 09/04/2024 Anemia, unspecified (ICD-10 - D64.9) His [...] he is being restaged. Plan Of Treatment Pending Test Test Name [...] 06/21/2023 Lipid Panel 12/03/2021 Testosterone, Free/Total 01/15/2021 Insurance Providers Payer Name Payer Address Payer Phone Subscriber Number Group Number Insured Name Patient Relationship to Insured Coverage Start Date Coverage End Date MEDICARE NGS [address] [place] [address] [phone] [id number] Justin Briceno Self - patient is the insured MED[place] [address] [place] [id number] [phone] [id number] Justin Briceno Self - patient is the insured Medical (General) History Medical History History ICD Code basal cell cancer, chest sebaceous cysts stage IV adenocarcinoma prostate Darvin 7 (4+3 ) GERD depression hyperlipidemia osterarthritis left knee 2018 Surgical History Surgery Date(Month/Year) No history Prostate removal surgery 18 years ago radical prostatectomy 2008 biopsy of prostate 2006 Hospitalization History Reason Date(Month/Year) No history Shortness of breath 04/2020 Shortness of breath 01/2020
--- OUTSIDE RECORDS SUMMARY | 2025-08-21 11:26 | XMS_ITS | Encounter Summary ---
Author Organization [facility] Address [address] [place] [address] [address] [place] [address] Phone Care Team Providers Care Houseman Name Role Phone Wilfred Maynard MD Unavailable [phone] Vira Nur MD Unavailable [phone] Gadiel Tripp Unavailable [phone] Wilfred Maynard MD Unavailable [phone] Leslie Coello RN Unavailable [email or web address] Scott Hooper Unavailable [phone] Gadiel Tripp Primary Care Provider + Chanel Whitt NP Unavailable [phone] Reason for Visit * Reason Onset Date Comments Medication Refill 08/17/2025 Encounter Details Date Type Department Care Team (Late st Contact Info) Description 08/17/2025 Refill [facility] [place] [facility] at [address] [address] Kati Weiner RN Medication Refill Social History Tobacco Use Types Packs/Day Years Used Date Smoking Tobacco: Never Smokeless Tobacco: Never Alcohol Use Standard Drinks/Week Comments Not Currently 0 (1 standard drink = 0.6 oz pur e alcohol) Home Health Assessment: Transportation Answer Date Recorded Lack of Transportation (Medical) No 05/07/2025 Lack of Transportation (Non-Medical) No 05/07/2025 Patient Unable or Declines to Respond No 05/07/2025 Child or Family Care Answer Date Record [...] got money to buy more. Never True 08/08/2025 Within the past 6 months the food we bought just didn't last and we didn't have enough money to get more. Never True Residential Stability Answer Date Recor ded What is your housing situation today? I have yaniv sing 08/08/2025 How many times have you move d in the past 12 months? Zero (I did not move) 08/08/2025 Paying for Meds Answer Date Recorded Do you have trouble paying for medicines? No 08/08/2025 Paying Utility Bills Answer Date Record ed Do you have trouble paying your heating or elect ricity bill? No 08/08/2025 Transportation Answer Date Recorded Has the lack of transportati on kept you from medical appointments or from getting medications? No 08/08/2025 Digital Access Answer Date Recorded No 08/08/2025 Yes 08/08/2025 Do you have reliable internet access at home? Ye s 08/08/2025 Do you have a device (e.g., phone, tablet, computer) with a working camera? Yes 08/08/2025 Intimate Partner Violence Answer Date R ecorded Are you denied basic needs s uch as food, clothing, or medical care? No 08/08/2025 In the past 12 months have y ou been in a relationship with a person who hurts, threatens, or tries to control you? No 08/08/2025 Are you denied basic needs s uch as food, clothing, or medical care? No 08/08/2025 In the past 12 months have y ou been in a relationship with a person who hurts, threatens, or tries to control you? No 08/08/2025 Sex and Gender Information Value Date Recorded Sex Assigned at Male 04/16/2023 5:28 PM EDT Legal Sex Male 7:12 PM EST Gender Identity Male 04/16/2023 5:28 PM EDT Sexual Orientation Straight 04/16/2023 5: 28 PM EDT documented as of this encounter Progress Notes * Kati Weiner RN - 08/17/2025 1:01 PM EST PDMP Fentanyl last filled 07-24-25 #5 15 day supply Oxycodone last filled 07-27-25 #84 14 day supply documented in this encounter Plan of Treatment Upcoming Encounters Date Type Department Care Team (Late st Contact Info) Description 09/13/2025 2:20 PM EST Office Visit [facility] Hematology Oncology Clinic at [address] [address] Scott Hooper MBBS [address] [place] [address] [email or web address] 09/13/2025 2:40 PM EST Nutrition [facility] Hematology Oncology Clinic at [address] [address] Scott Hooper MBBS [address] [place] [address] [email or web address] 09/25/2025 10:30 AM EST Office Visit [facility] G[facility] Clinic [address] [place] [address] Jenn Dang PA-C [address] [address] [email or web address] documented as of this encounter Visit Diagnoses Diagnosis Malignant neoplasm of prostate documented in this encounter Care Teams Houseman Relationship Specialty Start Date End Date Gadiel Tripp PA [address] [place] [address] PCP - General Physician Content Strategy Lead 12/19/24 Wilfred Maynard MD [address] [place] [address] [place] [address] Referring Physician Internal Medicine 11/19/15 Vira Nur MD [address] [place] [address] [email or web address] 04/16/23 Gadiel Tripp PA [address] [place] [address] Physician Content Strategy Lead 04/16/23 Wilfred Maynard MD [address] [place] [address] Dr Solano [address] [place] [address] Referring Physician Medical Oncology 04/16/23 Leslie Coello, FLAKITO [address] [place] [address] [email or web address] Primary Infusion Nurse 02/22/24 Scott Hooper MBBS [address] [place] [address] [email or web address] 03/01/24 Chanel Whitt NP [address] [place] [address] [email or web address] Nurse Practitioner Nurse Practitioner 06/01/25 documented as of this encounter Additional Source Comments The information contained in this document represents components of the legal health record. It is not the complete legal health record.[facility]
--- OUTSIDE RECORDS SUMMARY | 2025-08-21 11:26 | XMS_ITS | Encounter Summary ---
Author Organization [facility] Address [address] [place] [address] Phone Care Team Providers Care Instrument Lens Grinder Apprentice Name Role Phone Wilfred Maynard MD Unavailable [phone] Vira Nur MD Unavailable [phone] Gadiel Tripp Unavailable [phone] Wilfred Maynard MD Unavailable [phone] Leslie Coello RN Unavailable [email or web address] Scott [email or web address] Unavailable [phone] Gadiel Tripp Primary Care Provider + Chanel Whitt NP Unavailable [phone] Encounter Details Date Type Department Care Team (Late st Contact Info) Description 08/08/2025 Procedure Pass [facility], Ct Scan - [address] [address] Social History Tobacco Use Types Packs/Day Years [...] Description 09/13/2025 2:20 PM EST Office Visit [facility] Hematology Oncology Clinic at [address] [address] Scott Hooper [address] [address] [email or web address] 09/13/2025 2:40 PM EST Nutrition [facility] Hematology Oncology Clinic at [address] [address] Scott Hooper [address] [address] [email or web address] 09/25/2025 10:30 AM EST Office Visit [facility] Gastroenterology Clinic [address] [place] [address] Jenn Dang PA-C [address] [address] [email or web address] documented as of this encounter Visit Diagnoses Not on filedocumented in this encounter Care Teams Instrument Lens Grinder Apprentice Relationship Specialty Start Date End Date Gadiel Tripp PA [address] [place] [address] PCP - General Physician Branch Rental Manager 12/19/24 Wilfred Maynard MD [address] [place] [address] [place] [address] Referring Physician Internal Medicine 11/19/15 Vira Nur MD [address] [place] [address] [place] [address] [email or web address] 04/16/23 Gadiel Tripp PA [address] [place] [address] Physician Branch Rental Manager 04/16/23 Wilfred Maynard MD [address] [place] [address] [place] [address] Referring Physician Medical Oncology 04/16/23 Leslie Coello, RN [address] [place] [address] [email or web address] Primary Infusion Nurse 02/22/24 Scott Hooper MBBS [address] [place] [address] [email or web address] 03/01/24 Chanel Whitt NP [address] [place] [address] [email or web address] Nurse Practitioner Nurse Practitioner 06/01/25 documented as of this encounter Additional Source Comments The information contained in this document represents components of the legal health record. It is not the complete legal health record.[facility]
--- OUTSIDE RECORDS SUMMARY | 2025-08-21 11:26 | XMS_ITS ---
Author Organization [facility] Address [address] [place] [address] [address] [place] [address] Phone Care Team Providers Care [employer] Developer [employer] Name Role Phone Wilfred Maynard MD Unavailable [phone] Vira Nur MD Unavailable [phone] Gadiel Tripp Unavailable [phone] Wilfred Maynard MD Unavailable [phone] Leslie Coello RN Unavailable [email or web address] Unavailable [phone] Gadiel Tripp Primary Care Provider + Chanel Whitt NP Unavailable [phone] Active Problems Problem Noted Date Diagnosed Date Clonus 08/12/2025 Assessment & Plan (08/14/2025 2:43 PM EST): The patient reported 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 Denies fever, diaphoresis, tachycardia, mental status changes or confusion or agitations. Exam with normal muscle strength without induced clonus or hyperreflexia. Lab notable for slowly down trending Na from 135 to 129 most likely from poor po intake. Medication reviewed Lexapro and fentanyl patch can increase risks of serotonin and low Na. -Hold Lexapro -Initiate Mirtazapine nightly -Continue to monitor Assessment & Plan (08/13/2025 4:20 PM EST): The patient reported 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 Denies fever, diaphoresis, tachycardia, mental status changes or confusion or agitations. Exam with normal muscle strength without induced clonus or hyperreflexia. Lab notable for slowly down trending Na from 135 to 129 most likely from poor po intake. Medication reviewed Lexapro and fentanyl patch can increase risks of serotonin and low Na. -Hold Lexapro -Initiate Mirtazapine nightly -Continue to monitor Assessment & Plan (08/12/2025 1:18 PM EST): The patient reported 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 Denies fever, diaphoresis, tachycardia, mental status changes or confusion or agitations. Exam with normal muscle strength without induced clonus or hyperreflexia. Lab notable for slowly down trending Na from 135 to 129 most likely from poor po intake. Medication reviewed Lexapro and fentanyl patch can increase risks of serotonin and low Na. 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 Labs notable for mild hypomagnesemia (Mg 1.5) and hypochloremia (Cl 94); other electrolytes corrected as needed. CT abdomen/pelvis was negative for acute pathology. Likely multifactorial due to poor oral intake and ongoing vomiting. EGD with normal esophagus except for small hiatal hernia, normal stomach. Biopsy obtained without pathological abnormalities. - Encourage oral intake as tolerated - Appetite stimulants mirtazapine started in consultation with oncology. - Nutrition consulted, initiated PPN while pending assess by IR: PICC placement on 08/10 with TPN initiated on 08/11/2025, likely on a TPN formula on with teaching and supplies to go home on . - Oncology following - GI following, EGD completed, but felt less likely issues on colonoscopy - Continue monitoring electrolytes. - Antiemetics as needed for nausea/vomiting. - IV fluids if unable to maintain adequate intake. Monitor renal function and electrolytes. Assessment & Plan (08/13/2025 4:20 PM EST): Presenting with profoundly cachectic, with ~80 lb weight loss over the past year, poor oral intake, and progressive functional decline. Labs notable for mild hypomagnesemia (Mg 1.5) and hypochloremia (Cl 94); other electrolytes corrected as needed. CT abdomen/pelvis was negative for acute pathology. Likely multifactorial due to poor oral intake and ongoing vomiting. EGD with normal esophagus except for small hiatal hernia, normal stomach. Biopsy obtained. - Follow up Biopsy results - Encourage oral intake as tolerated - consider appetite stimulants in consultation with oncology. - Nutrition consulted, initiated PPN while pending assess by IR: PICC placement on 08/10 with TPN initiated on 08/11/2025, likely on a TPN formula on with teaching and supplies to go home on . - Oncology following - GI following, EGD completed, but felt less likely issues on colonoscopy - Continue monitoring electrolytes. - Antiemetics as needed for nausea/vomiting. - IV fluids if unable to maintain adequate intake. Monitor renal function and electrolytes. Assessment & Plan (08/12/2025 1:18 PM EST): Presenting with profoundly cachectic, with ~80 lb weight loss over the past year, poor oral intake, and progressive functional decline. Labs notable for mild hypomagnesemia (Mg 1.5) and hypochloremia (Cl 94); other electrolytes corrected as needed. CT abdomen/pelvis was negative for acute pathology. Likely multifactorial due to poor oral intake and ongoing vomiting. EGD with normal esophagus except for small hiatal hernia, normal stomach. Biopsy obtained. - Follow up Biopsy results - Encourage oral intake as tolerated - consider appetite stimulants in consultation with oncology. - Nutrition consulted, initiated PPN while pending assess by IR: PICC placement on 08/10 with TPN initiated on 08/11/2025, likely on a TPN formula on Wed- with teaching and supplies to go home on . - Oncology following - GI following, EGD completed, but felt less likely issues on colonoscopy - Continue monitoring electrolytes. - Antiemetics as needed for nausea/vomiting. - IV fluids if unable to maintain adequate intake. Monitor renal function and electrolytes. Assessment & Plan (08/11/2025 1:01 PM EST): Presenting with profoundly cachectic, with ~80 lb weight loss over the past year, poor oral intake, and progressive functional decline. Labs notable for mild hypomagnesemia (Mg 1.5) and hypochloremia (Cl 94); other electrolytes corrected as needed. CT abdomen/pelvis was negative for acute pathology. Likely multifactorial due to poor oral intake and ongoing vomiting. EGD with normal esophagus except for small hiatal hernia, normal stomach. Biopsy obtained. - Follow up Biopsy results - Encourage oral intake as tolerated - consider appetite stimulants in consultation with oncology. - Nutrition consulted, initiated PPN while pending assess by IR: PICC placement on 08/10 with TPN initiated on 08/11/2025 - Oncology following - GI following, EGD completed, but felt less likely issues on colonoscopy - Continue monitoring electrolytes. - Antiemetics as needed for nausea/vomiting. - IV fluids if unable to maintain adequate intake. Monitor renal function and electrolytes. Assessment & Plan (08/10/2025 3:27 PM EST): Presenting with profoundly cachectic, with ~80 lb weight loss over the past year, poor oral intake, and progressive functional decline. Labs notable for mild hypomagnesemia (Mg 1.5) and hypochloremia (Cl 94); other electrolytes corrected as needed. CT abdomen/pelvis was negative for acute pathology. Likely multifactorial due to poor oral intake and ongoing vomiting. EGD with normal esophagus except for small hiatal hernia, normal stomach. Biopsy obtained. - Follow up Biopsy results - Encourage oral intake as tolerated - consider appetite stimulants in consultation with oncology. - Nutrition consulted, initiated PPN while pending assess by IR: PICC placement on 08/10 - Oncology following - GI following, EGD completed, but felt less likely issues on colonoscopy - Continue monitoring electrolytes. - Antiemetics as needed for nausea/vomiting. - IV fluids if unable to maintain adequate intake. Monitor renal function and electrolytes. Assessment & Plan (08/09/2025 5:42 PM EST): Presenting with profoundly cachectic, with ~80 lb weight loss over the past year, poor oral intake, and progressive functional decline. Labs notable for mild hypomagnesemia (Mg 1.5) and hypochloremia (Cl 94); other electrolytes corrected as needed. CT abdomen/pelvis was negative for acute pathology. Likely multifactorial due to poor oral intake and ongoing vomiting. - Encourage oral intake as tolerated -consider appetite stimulants in consultation with oncology. -Nutrition consulted, initiated PPN while pending assess by IR placed. -Oncology to evaluate need for TPN or catheter placement. -GI for EGD/Atkins per oncology -Continue monitoring electrolytes. -Antiemetics as needed for nausea/vomiting. -IV fluids if unable to maintain adequate intake. Monitor renal function and electrolytes. Assessment & Plan (08/09/2025 1:25 AM EST): CT abdomen/pelvis was negative for acute pathology. Labs notable only for mild hypomagnesemia, which was repleted. Oncology (Dr. Singh) recommended admission for failure to thrive to evaluate for port and possibly TPN. Consult in place, will see patient in AM and discuss further plan. He is able to take PO, but needs encouragement and has a very poor appetite. Correct electrolytes. Antiemetics prn. Discuss with oncology regarding appetite stimulants. Nutrition consult. Goals of care, counseling/discussion 08/09/2025 Assessment & Plan (08/14/2025 2:43 PM EST): Per admitting provider: He expressed clear understanding of the non-curable nature of his metastatic prostate cancer and acknowledged his progressive functional decline, limited quality of life and significant suffering. He stated that he does not want CPR, mechanical ventilation, or other aggressive life-prolonging interventions should his heart or breathing stop, as he feels these would only prolong suffering without restoring meaningful quality of life. He voiced a preference for a comfort-focused approach if his condition deteriorates further, emphasizing relief of pain, nausea, and overall distress. He has not yet discussed these wishes in detail with his family, and further conversations and formal documentation of his preferences (including code status and potential palliative or hospice involvement) are recommended. Assessment & Plan (08/13/2025 4:20 PM EST): Per admitting provider: He expressed clear understanding of the non-curable nature of his metastatic prostate cancer and acknowledged his progressive functional decline, limited quality of life and significant suffering. He stated that he does not want CPR, mechanical ventilation, or other aggressive life-prolonging interventions should his heart or breathing stop, as he feels these would only prolong suffering without restoring meaningful quality of life. He voiced a preference for a comfort-focused approach if his condition deteriorates further, emphasizing relief of pain, nausea, and overall distress. He has not yet discussed these wishes in detail with his family, and further conversations and formal documentation of his preferences (including code status and potential palliative or hospice involvement) are recommended. Assessment & Plan (08/12/2025 1:18 PM EST): Per admitting provider: He expressed clear understanding of the non-curable nature of his metastatic prostate cancer and acknowledged his progressive functional decline, limited quality of life and significant suffering. He stated that he does not want CPR, mechanical ventilation, or other aggressive life-prolonging interventions should his heart or breathing stop, as he feels these would only prolong suffering without restoring meaningful quality of life. He voiced a preference for a comfort-focused approach if his condition deteriorates further, emphasizing relief of pain, nausea, and overall distress. He has not yet discussed these wishes in detail with his family, and further conversations and formal documentation of his preferences (including code status and potential palliative or hospice involvement) are recommended. Assessment & Plan (08/11/2025 1:01 PM EST): Per admitting provider: He expressed clear understanding of the non-curable nature of his metastatic prostate cancer and acknowledged his progressive functional decline, limited quality of life and significant suffering. He stated that he does not want CPR, mechanical ventilation, or other aggressive life-prolonging interventions should his heart or breathing stop, as he feels these would only prolong suffering without restoring meaningful quality of life. He voiced a preference for a comfort-focused approach if his condition deteriorates further, emphasizing relief of pain, nausea, and overall distress. He has not yet discussed these wishes in detail with his family, and further conversations and formal documentation of his preferences (including code status and potential palliative or hospice involvement) are recommended. Assessment & Plan (08/10/2025 3:27 PM EST): Per admitting provider: He expressed clear understanding of the non-curable nature of his metastatic prostate cancer and acknowledged his progressive functional decline, limited quality of life and significant suffering. He stated that he does not want CPR, mechanical ventilation, or other aggressive life-prolonging interventions should his heart or breathing stop, as he feels these would only prolong suffering without restoring meaningful quality of life. He voiced a preference for a comfort-focused approach if his condition deteriorates further, emphasizing relief of pain, nausea, and overall distress. He has not yet discussed these wishes in detail with his family, and further conversations and formal documentation of his preferences (including code status and potential palliative or hospice involvement) are recommended. Assessment & Plan (08/09/2025 5:42 PM EST): Per admitting provider: He expressed clear understanding of the non-curable nature of his metastatic prostate cancer and acknowledged his progressive functional decline, limited quality of life and significant suffering. He stated that he does not want CPR, mechanical ventilation, or other aggressive life-prolonging interventions should his heart or breathing stop, as he feels these would only prolong suffering without restoring meaningful quality of life. He voiced a preference for a comfort-focused approach if his condition deteriorates further, emphasizing relief of pain, nausea, and overall distress. He has not yet discussed these wishes in detail with his family, and further conversations and formal documentation of his preferences (including code status and potential palliative or hospice involvement) are recommended. Assessment & Plan (08/09/2025 1:25 AM EST): He expressed clear understanding of the non-curable nature of his metastatic prostate cancer and acknowledged his progressive functional decline, limited quality of life and significant suffering. He stated that he does not want CPR, mechanical ventilation, or other aggressive life-prolonging interventions should his heart or breathing stop, as he feels these would only prolong suffering without restoring meaningful quality of life. He voiced a preference for a comfort-focused approach if his condition deteriorates further, emphasizing relief of pain, nausea, and overall distress. He has not yet discussed these wishes in detail with his family, and further conversations and formal documentation of his preferences (including code status and potential palliative or hospice involvement) are recommended. Failure to thrive in adult 08/08/2025 Assessment & Plan (08/14/2025 2:43 PM EST): Presenting with profoundly cachectic, with ~80 lb weight loss over the past year, poor oral intake, and progressive functional decline. Labs notable for mild hypomagnesemia (Mg 1.5) and hypochloremia (Cl 94); other electrolytes corrected as needed. CT abdomen/pelvis was negative for acute pathology. Likely multifactorial due to poor oral intake and ongoing vomiting. EGD with normal esophagus except for small hiatal hernia, normal stomach. Biopsy obtained without pathological abnormalities. - Encourage oral intake as tolerated - Appetite stimulants mirtazapine started in consultation with oncology. - Nutrition consulted, initiated PPN while pending assess by IR: PICC placement on 08/10 with TPN initiated on 08/11/2025, likely on a TPN formula on Wed- with teaching and supplies to go home on . - Oncology following - GI following, EGD completed, but felt less likely issues on colonoscopy - Continue monitoring electrolytes. - Antiemetics as needed for nausea/vomiting. - IV fluids if unable to maintain adequate intake. Monitor renal function and electrolytes. Assessment & Plan (08/13/2025 4:20 PM EST): Presenting with profoundly cachectic, with ~80 lb weight loss over the past year, poor oral intake, and progressive functional decline. Labs notable for mild hypomagnesemia (Mg 1.5) and hypochloremia (Cl 94); other electrolytes corrected as needed. CT abdomen/pelvis was negative for acute pathology. Likely multifactorial due to poor oral intake and ongoing vomiting. EGD with normal esophagus except for small hiatal hernia, normal stomach. Biopsy obtained. - Follow up Biopsy results - Encourage oral intake as tolerated - consider appetite stimulants in consultation with oncology. - Nutrition consulted, initiated PPN while pending assess by IR: PICC placement on 08/10 with TPN initiated on 08/11/2025, likely on a TPN formula on Wed- with teaching and supplies to go home on . - Oncology following - GI following, EGD completed, but felt less likely issues on colonoscopy - Continue monitoring electrolytes. - Antiemetics as needed for nausea/vomiting. - IV fluids if unable to maintain adequate intake. Monitor renal function and electrolytes. Assessment & Plan (08/12/2025 1:18 PM EST): Presenting with profoundly cachectic, with ~80 lb weight loss over the past year, poor oral intake, and progressive functional decline. Labs notable for mild hypomagnesemia (Mg 1.5) and hypochloremia (Cl 94); other electrolytes corrected as needed. CT abdomen/pelvis was negative for acute pathology. Likely multifactorial due to poor oral intake and ongoing vomiting. EGD with normal esophagus except for small hiatal hernia, normal stomach. Biopsy obtained. - Follow up Biopsy results - Encourage oral intake as tolerated - consider appetite stimulants in consultation with oncology. - Nutrition consulted, initiated PPN while pending assess by IR: PICC placement on 08/10 with TPN initiated on 08/11/2025, likely on a TPN formula on Wed- with teaching and supplies to go home on . - Oncology following - GI following, EGD completed, but felt less likely issues on colonoscopy - Continue monitoring electrolytes. - Antiemetics as needed for nausea/vomiting. - IV fluids if unable to maintain adequate intake. Monitor renal function and electrolytes. Assessment & Plan (08/11/2025 1:01 PM EST): Presenting with profoundly cachectic, with ~80 lb weight loss over the past year, poor oral intake, and progressive functional decline. Labs notable for mild hypomagnesemia (Mg 1.5) and hypochloremia (Cl 94); other electrolytes corrected as needed. CT abdomen/pelvis was negative for acute pathology. Likely multifactorial due to poor oral intake and ongoing vomiting. EGD with normal esophagus except for small hiatal hernia, normal stomach. Biopsy obtained. - Follow up Biopsy results - Encourage oral intake as tolerated - consider appetite stimulants in consultation with oncology. - Nutrition consulted, initiated PPN while pending assess by IR: PICC placement on 08/10 with TPN initiated on 08/11/2025 - Oncology following - GI following, EGD completed, but felt less likely issues on colonoscopy - Continue monitoring electrolytes. - Antiemetics as needed for nausea/vomiting. - IV fluids if unable to maintain adequate intake. Monitor renal function and electrolytes. Assessment & Plan (08/10/2025 3:27 PM EST): Presenting with profoundly cachectic, with ~80 lb weight loss over the past year, poor oral intake, and progressive functional decline. Labs notable for mild hypomagnesemia (Mg 1.5) and hypochloremia (Cl 94); other electrolytes corrected as needed. CT abdomen/pelvis was negative for acute pathology. Likely multifactorial due to poor oral intake and ongoing vomiting. EGD with normal esophagus except for small hiatal hernia, normal stomach. Biopsy obtained. - Follow up Biopsy results - Encourage oral intake as tolerated - consider appetite stimulants in consultation with oncology. - Nutrition consulted, initiated PPN while pending assess by IR: PICC placement on 08/10 - Oncology following - GI following, EGD completed, but felt less likely issues on colonoscopy - Continue monitoring electrolytes. - Antiemetics as needed for nausea/vomiting. - IV fluids if unable to maintain adequate intake. Monitor renal function and electrolytes. Assessment & Plan (08/09/2025 5:42 PM EST): Presenting with profoundly cachectic, with ~80 lb weight loss over the past year, poor oral intake, and progressive functional decline. Labs notable for mild hypomagnesemia (Mg 1.5) and hypochloremia (Cl 94); other electrolytes corrected as needed. CT abdomen/pelvis was negative for acute pathology. Likely multifactorial due to poor oral intake and ongoing vomiting. - Encourage oral intake as tolerated -consider appetite stimulants in consultation with oncology. -Nutrition consulted, initiated PPN while pending assess by IR placed. -Oncology to evaluate need for TPN or catheter placement. -GI for EGD/Atkins per oncology -Continue monitoring electrolytes. -Antiemetics as needed for nausea/vomiting. -IV fluids if unable to maintain adequate intake. Monitor renal function and electrolytes. Assessment & Plan (08/09/2025 1:25 AM EST): CT abdomen/pelvis was negative for acute pathology. Labs notable only for mild hypomagnesemia, which was repleted. Oncology (Dr. Singh) recommended admission for failure to thrive to evaluate for port and possibly TPN. Consult in place, will see patient in AM and discuss further plan. He is able to take PO, but needs encouragement and has a very poor appetite. Correct electrolytes. Antiemetics prn. Discuss with oncology regarding appetite stimulants. Nutrition consult. Pulmonary nodule 07/08/2025 Dehydration 05/30/2025 Assessment & Plan (08/14/2025 2:43 PM EST): Presenting with profoundly cachectic, with ~80 lb weight loss over the past year, poor oral intake, and progressive functional decline. Labs notable for mild hypomagnesemia (Mg 1.5) and hypochloremia (Cl 94); other electrolytes corrected as needed. CT abdomen/pelvis was negative for acute pathology. Likely multifactorial due to poor oral intake and ongoing vomiting. EGD with normal esophagus except for small hiatal hernia, normal stomach. Biopsy obtained without pathological abnormalities. - Encourage oral intake as tolerated - Appetite stimulants mirtazapine started in consultation with oncology. - Nutrition consulted, initiated PPN while pending assess by IR: PICC placement on 08/10 with TPN initiated on 08/11/2025, likely on a TPN formula on Wed-s with teaching and supplies to go home on . - Oncology following - GI following, EGD completed, but felt less likely issues on colonoscopy - Continue monitoring electrolytes. - Antiemetics as needed for nausea/vomiting. - IV fluids if unable to maintain adequate intake. Monitor renal function and electrolytes. Assessment & Plan (08/13/2025 4:20 PM EST): Presenting with profoundly cachectic, with ~80 lb weight loss over the past year, poor oral intake, and progressive functional decline. Labs notable for mild hypomagnesemia (Mg 1.5) and hypochloremia (Cl 94); other electrolytes corrected as needed. CT abdomen/pelvis was negative for acute pathology. Likely multifactorial due to poor oral intake and ongoing vomiting. EGD with normal esophagus except for small hiatal hernia, normal stomach. Biopsy obtained. - Follow up Biopsy results - Encourage oral intake as tolerated - consider appetite stimulants in consultation with oncology. - Nutrition consulted, initiated PPN while pending assess by IR: PICC placement on 08/10 with TPN initiated on 08/11/2025, likely on a TPN formula on Wed-s with teaching and supplies to go home on . - Oncology following - GI following, EGD completed, but felt less likely issues on colonoscopy - Continue monitoring electrolytes. - Antiemetics as needed for nausea/vomiting. - IV fluids if unable to maintain adequate intake. Monitor renal function and electrolytes. Assessment & Plan (08/12/2025 1:18 PM EST): Presenting with profoundly cachectic, with ~80 lb weight loss over the past year, poor oral intake, and progressive functional decline. Labs notable for mild hypomagnesemia (Mg 1.5) and hypochloremia (Cl 94); other electrolytes corrected as needed. CT abdomen/pelvis was negative for acute pathology. Likely multifactorial due to poor oral intake and ongoing vomiting. EGD with normal esophagus except for small hiatal hernia, normal stomach. Biopsy obtained. - Follow up Biopsy results - Encourage oral intake as tolerated - consider appetite stimulants in consultation with oncology. - Nutrition consulted, initiated PPN while pending assess by IR: PICC placement on 08/10 with TPN initiated on 08/11/2025, likely on a TPN formula on Wed- with teaching and supplies to go home on . - Oncology following - GI following, EGD completed, but felt less likely issues on colonoscopy - Continue monitoring electrolytes. - Antiemetics as needed for nausea/vomiting. - IV fluids if unable to maintain adequate intake. Monitor renal function and electrolytes. Assessment & Plan (08/11/2025 1:01 PM EST): Presenting with profoundly cachectic, with ~80 lb weight loss over the past year, poor oral intake, and progressive functional decline. Labs notable for mild hypomagnesemia (Mg 1.5) and hypochloremia (Cl 94); other electrolytes corrected as needed. CT abdomen/pelvis was negative for acute pathology. Likely multifactorial due to poor oral intake and ongoing vomiting. EGD with normal esophagus except for small hiatal hernia, normal stomach. Biopsy obtained. - Follow up Biopsy results - Encourage oral intake as tolerated - consider appetite stimulants in consultation with oncology. - Nutrition consulted, initiated PPN while pending assess by IR: PICC placement on 08/10 with TPN initiated on 08/11/2025 - Oncology following - GI following, EGD completed, but felt less likely issues on colonoscopy - Continue monitoring electrolytes. - Antiemetics as needed for nausea/vomiting. - IV fluids if unable to maintain adequate intake. Monitor renal function and electrolytes. Assessment & Plan (08/10/2025 3:27 PM EST): Presenting with profoundly cachectic, with ~80 lb weight loss over the past year, poor oral intake, and progressive functional decline. Labs notable for mild hypomagnesemia (Mg 1.5) and hypochloremia (Cl 94); other electrolytes corrected as needed. CT abdomen/pelvis was negative for acute pathology. Likely multifactorial due to poor oral intake and ongoing vomiting. EGD with normal esophagus except for small hiatal hernia, normal stomach. Biopsy obtained. - Follow up Biopsy results - Encourage oral intake as tolerated - consider appetite stimulants in consultation with oncology. - Nutrition consulted, initiated PPN while pending assess by IR: PICC placement on 08/10 - Oncology following - GI following, EGD completed, but felt less likely issues on colonoscopy - Continue monitoring electrolytes. - Antiemetics as needed for nausea/vomiting. - IV fluids if unable to maintain adequate intake. Monitor renal function and electrolytes. Assessment & Plan (08/09/2025 5:42 PM EST): Presenting with profoundly cachectic, with ~80 lb weight loss over the past year, poor oral intake, and progressive functional decline. Labs notable for mild hypomagnesemia (Mg 1.5) and hypochloremia (Cl 94); other electrolytes corrected as needed. CT abdomen/pelvis was negative for acute pathology. Likely multifactorial due to poor oral intake and ongoing vomiting. - Encourage oral intake as tolerated -consider appetite stimulants in consultation with oncology. -Nutrition consulted, initiated PPN while pending assess by IR placed. -Oncology to evaluate need for TPN or catheter placement. -GI for EGD/Atkins per oncology -Continue monitoring electrolytes. -Antiemetics as needed for nausea/vomiting. -IV fluids if unable to maintain adequate intake. Monitor renal function and electrolytes. Assessment & Plan (08/09/2025 1:25 AM EST): CT abdomen/pelvis was negative for acute pathology. Labs notable only for mild hypomagnesemia, which was repleted. Oncology (Dr. Singh) recommended admission for failure to thrive to evaluate for port and possibly TPN. Consult in place, will see patient in AM and discuss further plan. He is able to take PO, but needs encouragement and has a very poor appetite. Correct electrolytes. Antiemetics prn. Discuss with oncology regarding appetite stimulants. Nutrition consult. Abdominal pain 05/30/2025 Weight loss 04/29/2025 Encounter for palliative care [...] go up on fentanyl patch by another mcg/hr. 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 Primary Onc: Dr. Hooper -Continue fentanyl patch -Continue prn IV dilaudid for acute pain. -Continue lidocaine patches to metastatic rib sites as tolerated. 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 Primary Onc: Dr. Hooper -Continue fentanyl patch -Continue prn IV dilaudid for acute pain. -Continue lidocaine patches to metastatic rib sites as tolerated. 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 Primary Onc: Dr. Hooper -Continue fentanyl patch -Continue prn IV dilaudid for acute pain. -Continue lidocaine patches to metastatic rib sites as tolerated. 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 -Continue fentanyl patch -Continue prn IV dilaudid for acute pain. -Continue lidocaine patches to metastatic rib sites as tolerated. 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 -Continue fentanyl patch -Continue prn IV dilaudid for acute pain. -Continue lidocaine patches to metastatic rib sites as tolerated. -Aggressive bowel regimen Assessment & Plan (08/09/2025 5:42 PM EST): Pain seems to be mainly in his ribs. -Continue fentanyl patch -Continue prn IV dilaudid for acute pain. -Continue lidocaine patches to metastatic rib sites as tolerated. Assessment & Plan (08/09/2025 1:25 AM EST): Pain seems to be mainly in his ribs. Continue fentanyl patch, prn IV dilaudid for acute pain. Add lidocaine patches to metastatic rib sites as tolerated. Assessment & Plan (02/22/2025 2:41 PM EDT): [...] 10 mg q4hrs PRN (home med). On [facility] transfer, pt reported minimal improvement w/ above [...] 10 mg q4hrs PRN (home med). On [facility] transfer, pt reported minimal improvement w/ above [...] 10 mg q4hrs PRN (home med). On [facility] transfer, pt reports minimal improvement w/ above [...] 10 mg q4hrs PRN (home med). On [facility] transfer, pt reports minimal improvement w/ above [...] 10 mg q4hrs PRN (home med). On [facility] transfer, pt reports minimal improvement w/ above [...] 10 mg q4hrs PRN (home med). On [facility] transfer, pt reports minimal improvement w/ above [...] Ongoing pain control issue, most recently saw [facility] outpatient 01/16. Was planned to start RT [...] 02/13/2025 Electrolyte abnormality 02/09/2025 Assessment & Plan (08/14/2025 2:43 PM EST): Presenting with profoundly cachectic, with ~80 lb weight loss over the past year, poor oral intake, and progressive functional decline. Labs notable for mild hypomagnesemia (Mg 1.5) and hypochloremia (Cl 94); other electrolytes corrected as needed. CT abdomen/pelvis was negative for acute pathology. Likely multifactorial due to poor oral intake and ongoing vomiting. EGD with normal esophagus except for small hiatal hernia, normal stomach. Biopsy obtained without pathological abnormalities. - Encourage oral intake as tolerated - Appetite stimulants mirtazapine started in consultation with oncology. - Nutrition consulted, initiated PPN while pending assess by IR: PICC placement on 08/10 with TPN initiated on 08/11/2025, likely on a TPN formula on Wed- with teaching and supplies to go home on . - Oncology following - GI following, EGD completed, but felt less likely issues on colonoscopy - Continue monitoring electrolytes. - Antiemetics as needed for nausea/vomiting. - IV fluids if unable to maintain adequate intake. Monitor renal function and electrolytes. Assessment & Plan (08/13/2025 4:20 PM EST): Presenting with profoundly cachectic, with ~80 lb weight loss over the past year, poor oral intake, and progressive functional decline. Labs notable for mild hypomagnesemia (Mg 1.5) and hypochloremia (Cl 94); other electrolytes corrected as needed. CT abdomen/pelvis was negative for acute pathology. Likely multifactorial due to poor oral intake and ongoing vomiting. EGD with normal esophagus except for small hiatal hernia, normal stomach. Biopsy obtained. - Follow up Biopsy results - Encourage oral intake as tolerated - consider appetite stimulants in consultation with oncology. - Nutrition consulted, initiated PPN while pending assess by IR: PICC placement on 08/10 with TPN initiated on 08/11/2025, likely on a TPN formula on with teaching and supplies to go home on . - Oncology following - GI following, EGD completed, but felt less likely issues on colonoscopy - Continue monitoring electrolytes. - Antiemetics as needed for nausea/vomiting. - IV fluids if unable to maintain adequate intake. Monitor renal function and electrolytes. Assessment & Plan (08/12/2025 1:18 PM EST): Presenting with profoundly cachectic, with ~80 lb weight loss over the past year, poor oral intake, and progressive functional decline. Labs notable for mild hypomagnesemia (Mg 1.5) and hypochloremia (Cl 94); other electrolytes corrected as needed. CT abdomen/pelvis was negative for acute pathology. Likely multifactorial due to poor oral intake and ongoing vomiting. EGD with normal esophagus except for small hiatal hernia, normal stomach. Biopsy obtained. - Follow up Biopsy results - Encourage oral intake as tolerated - consider appetite stimulants in consultation with oncology. - Nutrition consulted, initiated PPN while pending assess by IR: PICC placement on 08/10 with TPN initiated on 08/11/2025, likely on a TPN formula on Wed- with teaching and supplies to go home on . - Oncology following - GI following, EGD completed, but felt less likely issues on colonoscopy - Continue monitoring electrolytes. - Antiemetics as needed for nausea/vomiting. - IV fluids if unable to maintain adequate intake. Monitor renal function and electrolytes. Assessment & Plan (08/11/2025 1:01 PM EST): Presenting with profoundly cachectic, with ~80 lb weight loss over the past year, poor oral intake, and progressive functional decline. Labs notable for mild hypomagnesemia (Mg 1.5) and hypochloremia (Cl 94); other electrolytes corrected as needed. CT abdomen/pelvis was negative for acute pathology. Likely multifactorial due to poor oral intake and ongoing vomiting. EGD with normal esophagus except for small hiatal hernia, normal stomach. Biopsy obtained. - Follow up Biopsy results - Encourage oral intake as tolerated - consider appetite stimulants in consultation with oncology. - Nutrition consulted, initiated PPN while pending assess by IR: PICC placement on 08/10 with TPN initiated on 08/11/2025 - Oncology following - GI following, EGD completed, but felt less likely issues on colonoscopy - Continue monitoring electrolytes. - Antiemetics as needed for nausea/vomiting. - IV fluids if unable to maintain adequate intake. Monitor renal function and electrolytes. Assessment & Plan (08/10/2025 3:27 PM EST): Presenting with profoundly cachectic, with ~80 lb weight loss over the past year, poor oral intake, and progressive functional decline. Labs notable for mild hypomagnesemia (Mg 1.5) and hypochloremia (Cl 94); other electrolytes corrected as needed. CT abdomen/pelvis was negative for acute pathology. Likely multifactorial due to poor oral intake and ongoing vomiting. EGD with normal esophagus except for small hiatal hernia, normal stomach. Biopsy obtained. - Follow up Biopsy results - Encourage oral intake as tolerated - consider appetite stimulants in consultation with oncology. - Nutrition consulted, initiated PPN while pending assess by IR: PICC placement on 08/10 - Oncology following - GI following, EGD completed, but felt less likely issues on colonoscopy - Continue monitoring electrolytes. - Antiemetics as needed for nausea/vomiting. - IV fluids if unable to maintain adequate intake. Monitor renal function and electrolytes. Assessment & Plan (08/09/2025 5:42 PM EST): Presenting with profoundly cachectic, with ~80 lb weight loss over the past year, poor oral intake, and progressive functional decline. Labs notable for mild hypomagnesemia (Mg 1.5) and hypochloremia (Cl 94); other electrolytes corrected as needed. CT abdomen/pelvis was negative for acute pathology. Likely multifactorial due to poor oral intake and ongoing vomiting. - Encourage oral intake as tolerated -consider appetite stimulants in consultation with oncology. -Nutrition consulted, initiated PPN while pending assess by IR placed. -Oncology to evaluate need for TPN or catheter placement. -GI for EGD/Atkins per oncology -Continue monitoring electrolytes. -Antiemetics as needed for nausea/vomiting. -IV fluids if unable to maintain adequate intake. Monitor renal function and electrolytes. Assessment & Plan (08/09/2025 1:25 AM EST): CT abdomen/pelvis was negative for acute pathology. Labs notable only for mild hypomagnesemia, which was repleted. Oncology (Dr. Singh) recommended admission for failure to thrive to evaluate for port and possibly TPN. Consult in place, will see patient in AM and discuss further plan. He is able to take PO, but needs encouragement and has a very poor appetite. Correct electrolytes. Antiemetics prn. Discuss with oncology regarding appetite stimulants. Nutrition consult. Assessment & Plan (02/12/2025 3:05 PM EDT): [...] Fuller. Recommend radiosurgery to the spine at [facility] with dedicated specialist. 02/10: started on [...] scheduled, patient may decline dose -transfer to [facility] requested; patient accepted by Dr Vira Valencia; [...] Fuller. Recommend radiosurgery to the spine at [facility] with dedicated specialist. Dr. Hooper coordinating [...] Fuller. Recommend radiosurgery to the spine at [facility] with dedicated specialist. Dr. Hooper coordinating [...] Fuller. Recommend radiosurgery to the spine at [facility] with dedicated specialist. Dr. Hooper coordinating [...] Fuller. Recommend radiosurgery to the spine at [facility] with dedicated specialist. Dr. Hooper coordinating [...] lipase, CBC Constipation 02/08/2025 Assessment & Plan (08/14/2025 2:43 PM EST): Presenting with profoundly cachectic, with ~80 lb weight loss over the past year, poor oral intake, and progressive functional decline. Labs notable for mild hypomagnesemia (Mg 1.5) and hypochloremia (Cl 94); other electrolytes corrected as needed. CT abdomen/pelvis was negative for acute pathology. Likely multifactorial due to poor oral intake and ongoing vomiting. EGD with normal esophagus except for small hiatal hernia, normal stomach. Biopsy obtained without pathological abnormalities. - Encourage oral intake as tolerated - Appetite stimulants mirtazapine started in consultation with oncology. - Nutrition consulted, initiated PPN while pending assess by IR: PICC placement on 08/10 with TPN initiated on 08/11/2025, likely on a TPN formula on Wed- with teaching and supplies to go home on . - Oncology following - GI following, EGD completed, but felt less likely issues on colonoscopy - Continue monitoring electrolytes. - Antiemetics as needed for nausea/vomiting. - IV fluids if unable to maintain adequate intake. Monitor renal function and electrolytes. Assessment & Plan (08/13/2025 4:20 PM EST): Presenting with profoundly cachectic, with ~80 lb weight loss over the past year, poor oral intake, and progressive functional decline. Labs notable for mild hypomagnesemia (Mg 1.5) and hypochloremia (Cl 94); other electrolytes corrected as needed. CT abdomen/pelvis was negative for acute pathology. Likely multifactorial due to poor oral intake and ongoing vomiting. EGD with normal esophagus except for small hiatal hernia, normal stomach. Biopsy obtained. - Follow up Biopsy results - Encourage oral intake as tolerated - consider appetite stimulants in consultation with oncology. - Nutrition consulted, initiated PPN while pending assess by IR: PICC placement on 08/10 with TPN initiated on 08/11/2025, likely on a TPN formula on Wed- with teaching and supplies to go home on . - Oncology following - GI following, EGD completed, but felt less likely issues on colonoscopy - Continue monitoring electrolytes. - Antiemetics as needed for nausea/vomiting. - IV fluids if unable to maintain adequate intake. Monitor renal function and electrolytes. Assessment & Plan (08/12/2025 1:18 PM EST): Presenting with profoundly cachectic, with ~80 lb weight loss over the past year, poor oral intake, and progressive functional decline. Labs notable for mild hypomagnesemia (Mg 1.5) and hypochloremia (Cl 94); other electrolytes corrected as needed. CT abdomen/pelvis was negative for acute pathology. Likely multifactorial due to poor oral intake and ongoing vomiting. EGD with normal esophagus except for small hiatal hernia, normal stomach. Biopsy obtained. - Follow up Biopsy results - Encourage oral intake as tolerated - consider appetite stimulants in consultation with oncology. - Nutrition consulted, initiated PPN while pending assess by IR: PICC placement on 08/10 with TPN initiated on 08/11/2025, likely on a TPN formula on Wed- with teaching and supplies to go home on . - Oncology following - GI following, EGD completed, but felt less likely issues on colonoscopy - Continue monitoring electrolytes. - Antiemetics as needed for nausea/vomiting. - IV fluids if unable to maintain adequate intake. Monitor renal function and electrolytes. Assessment & Plan (08/11/2025 1:01 PM EST): Presenting with profoundly cachectic, with ~80 lb weight loss over the past year, poor oral intake, and progressive functional decline. Labs notable for mild hypomagnesemia (Mg 1.5) and hypochloremia (Cl 94); other electrolytes corrected as needed. CT abdomen/pelvis was negative for acute pathology. Likely multifactorial due to poor oral intake and ongoing vomiting. EGD with normal esophagus except for small hiatal hernia, normal stomach. Biopsy obtained. - Follow up Biopsy results - Encourage oral intake as tolerated - consider appetite stimulants in consultation with oncology. - Nutrition consulted, initiated PPN while pending assess by IR: PICC placement on 08/10 with TPN initiated on 08/11/2025 - Oncology following - GI following, EGD completed, but felt less likely issues on colonoscopy - Continue monitoring electrolytes. - Antiemetics as needed for nausea/vomiting. - IV fluids if unable to maintain adequate intake. Monitor renal function and electrolytes. Assessment & Plan (08/10/2025 3:27 PM EST): Presenting with profoundly cachectic, with ~80 lb weight loss over the past year, poor oral intake, and progressive functional decline. Labs notable for mild hypomagnesemia (Mg 1.5) and hypochloremia (Cl 94); other electrolytes corrected as needed. CT abdomen/pelvis was negative for acute pathology. Likely multifactorial due to poor oral intake and ongoing vomiting. EGD with normal esophagus except for small hiatal hernia, normal stomach. Biopsy obtained. - Follow up Biopsy results - Encourage oral intake as tolerated - consider appetite stimulants in consultation with oncology. - Nutrition consulted, initiated PPN while pending assess by IR: PICC placement on 08/10 - Oncology following - GI following, EGD completed, but felt less likely issues on colonoscopy - Continue monitoring electrolytes. - Antiemetics as needed for nausea/vomiting. - IV fluids if unable to maintain adequate intake. Monitor renal function and electrolytes. Assessment & Plan (08/09/2025 5:42 PM EST): Presenting with profoundly cachectic, with ~80 lb weight loss over the past year, poor oral intake, and progressive functional decline. Labs notable for mild hypomagnesemia (Mg 1.5) and hypochloremia (Cl 94); other electrolytes corrected as needed. CT abdomen/pelvis was negative for acute pathology. Likely multifactorial due to poor oral intake and ongoing vomiting. - Encourage oral intake as tolerated -consider appetite stimulants in consultation with oncology. -Nutrition consulted, initiated PPN while pending assess by IR placed. -Oncology to evaluate need for TPN or catheter placement. -GI for EGD/Atkins per oncology -Continue monitoring electrolytes. -Antiemetics as needed for nausea/vomiting. -IV fluids if unable to maintain adequate intake. Monitor renal function and electrolytes. Assessment & Plan (08/09/2025 1:25 AM EST): CT abdomen/pelvis was negative for acute pathology. Labs notable only for mild hypomagnesemia, which was repleted. Oncology (Dr. Singh) recommended admission for failure to thrive to evaluate for port and possibly TPN. Consult in place, will see patient in AM and discuss further plan. He is able to take PO, but needs encouragement and has a very poor appetite. Correct electrolytes. Antiemetics prn. Discuss with oncology regarding appetite stimulants. Nutrition consult. Assessment & Plan (02/12/2025 3:05 PM EDT): [...] severe protein-calorie malnutrition 05/21/2024 Assessment & Plan (08/14/2025 2:43 PM EST): Presenting with profoundly cachectic, with ~80 lb weight loss over the past year, poor oral intake, and progressive functional decline. Labs notable for mild hypomagnesemia (Mg 1.5) and hypochloremia (Cl 94); other electrolytes corrected as needed. CT abdomen/pelvis was negative for acute pathology. Likely multifactorial due to poor oral intake and ongoing vomiting. EGD with normal esophagus except for small hiatal hernia, normal stomach. Biopsy obtained without pathological abnormalities. - Encourage oral intake as tolerated - Appetite stimulants mirtazapine started in consultation with oncology. - Nutrition consulted, initiated PPN while pending assess by IR: PICC placement on 08/10 with TPN initiated on 08/11/2025, likely on a TPN formula on Wed- with teaching and supplies to go home on . - Oncology following - GI following, EGD completed, but felt less likely issues on colonoscopy - Continue monitoring electrolytes. - Antiemetics as needed for nausea/vomiting. - IV fluids if unable to maintain adequate intake. Monitor renal function and electrolytes. Assessment & Plan (08/13/2025 4:20 PM EST): Presenting with profoundly cachectic, with ~80 lb weight loss over the past year, poor oral intake, and progressive functional decline. Labs notable for mild hypomagnesemia (Mg 1.5) and hypochloremia (Cl 94); other electrolytes corrected as needed. CT abdomen/pelvis was negative for acute pathology. Likely multifactorial due to poor oral intake and ongoing vomiting. EGD with normal esophagus except for small hiatal hernia, normal stomach. Biopsy obtained. - Follow up Biopsy results - Encourage oral intake as tolerated - consider appetite stimulants in consultation with oncology. - Nutrition consulted, initiated PPN while pending assess by IR: PICC placement on 08/10 with TPN initiated on 08/11/2025, likely on a TPN formula on Wed- with teaching and supplies to go home on . - Oncology following - GI following, EGD completed, but felt less likely issues on colonoscopy - Continue monitoring electrolytes. - Antiemetics as needed for nausea/vomiting. - IV fluids if unable to maintain adequate intake. Monitor renal function and electrolytes. Assessment & Plan (08/12/2025 1:18 PM EST): Presenting with profoundly cachectic, with ~80 lb weight loss over the past year, poor oral intake, and progressive functional decline. Labs notable for mild hypomagnesemia (Mg 1.5) and hypochloremia (Cl 94); other electrolytes corrected as needed. CT abdomen/pelvis was negative for acute pathology. Likely multifactorial due to poor oral intake and ongoing vomiting. EGD with normal esophagus except for small hiatal hernia, normal stomach. Biopsy obtained. - Follow up Biopsy results - Encourage oral intake as tolerated - consider appetite stimulants in consultation with oncology. - Nutrition consulted, initiated PPN while pending assess by IR: PICC placement on 08/10 with TPN initiated on 08/11/2025, likely on a TPN formula on Wed- with teaching and supplies to go home on . - Oncology following - GI following, EGD completed, but felt less likely issues on colonoscopy - Continue monitoring electrolytes. - Antiemetics as needed for nausea/vomiting. - IV fluids if unable to maintain adequate intake. Monitor renal function and electrolytes. Assessment & Plan (08/11/2025 1:01 PM EST): Presenting with profoundly cachectic, with ~80 lb weight loss over the past year, poor oral intake, and progressive functional decline. Labs notable for mild hypomagnesemia (Mg 1.5) and hypochloremia (Cl 94); other electrolytes corrected as needed. CT abdomen/pelvis was negative for acute pathology. Likely multifactorial due to poor oral intake and ongoing vomiting. EGD with normal esophagus except for small hiatal hernia, normal stomach. Biopsy obtained. - Follow up Biopsy results - Encourage oral intake as tolerated - consider appetite stimulants in consultation with oncology. - Nutrition consulted, initiated PPN while pending assess by IR: PICC placement on 08/10 with TPN initiated on 08/11/2025 - Oncology following - GI following, EGD completed, but felt less likely issues on colonoscopy - Continue monitoring electrolytes. - Antiemetics as needed for nausea/vomiting. - IV fluids if unable to maintain adequate intake. Monitor renal function and electrolytes. Assessment & Plan (08/10/2025 3:27 PM EST): Presenting with profoundly cachectic, with ~80 lb weight loss over the past year, poor oral intake, and progressive functional decline. Labs notable for mild hypomagnesemia (Mg 1.5) and hypochloremia (Cl 94); other electrolytes corrected as needed. CT abdomen/pelvis was negative for acute pathology. Likely multifactorial due to poor oral intake and ongoing vomiting. EGD with normal esophagus except for small hiatal hernia, normal stomach. Biopsy obtained. - Follow up Biopsy results - Encourage oral intake as tolerated - consider appetite stimulants in consultation with oncology. - Nutrition consulted, initiated PPN while pending assess by IR: PICC placement on 08/10 - Oncology following - GI following, EGD completed, but felt less likely issues on colonoscopy - Continue monitoring electrolytes. - Antiemetics as needed for nausea/vomiting. - IV fluids if unable to maintain adequate intake. Monitor renal function and electrolytes. Assessment & Plan (08/09/2025 5:42 PM EST): Presenting with profoundly cachectic, with ~80 lb weight loss over the past year, poor oral intake, and progressive functional decline. Labs notable for mild hypomagnesemia (Mg 1.5) and hypochloremia (Cl 94); other electrolytes corrected as needed. CT abdomen/pelvis was negative for acute pathology. Likely multifactorial due to poor oral intake and ongoing vomiting. - Encourage oral intake as tolerated -consider appetite stimulants in consultation with oncology. -Nutrition consulted, initiated PPN while pending assess by IR placed. -Oncology to evaluate need for TPN or catheter placement. -GI for EGD/Atkins per oncology -Continue monitoring electrolytes. -Antiemetics as needed for nausea/vomiting. -IV fluids if unable to maintain adequate intake. Monitor renal function and electrolytes. Assessment & Plan (08/09/2025 1:25 AM EST): CT abdomen/pelvis was negative for acute pathology. Labs notable only for mild hypomagnesemia, which was repleted. Oncology (Dr. Singh) recommended admission for failure to thrive to evaluate for port and possibly TPN. Consult in place, will see patient in AM and discuss further plan. He is able to take PO, but needs encouragement and has a very poor appetite. Correct electrolytes. Antiemetics prn. Discuss with oncology regarding appetite stimulants. Nutrition consult. Assessment & Plan (02/22/2025 2:41 PM EDT): Pt with significant N/V due to pain and constipation, reported 40# weight loss in past 6 weeks, started on 24 hr continuious PPN 100ml/hr of ensure HP with OSH nutrition guidance 02/09. Unfortunately, PPN not offered at [facility]. Improvement of symptoms s/p BM, patient planned [...] guidance 02/09. Unfortunately, PPN not offered at [facility]. Improvement of symptoms s/p BM, patient planned [...] guidance 02/09. Unfortunately, PPN not offered at [facility]. Improvement of symptoms s/p BM, patient planned [...] guidance 02/09. Unfortunately, PPN not offered at [facility]. Improvement of symptoms s/p BM, patient planned [...] guidance 02/09. Unfortunately, PPN not offered at [facility]. Improvement of symptoms s/p BM, patient planned [...] guidance 02/09. Unfortunately, PPN not offered at [facility]. Improvement of symptoms s/p BM, patient planned [...] guidance 02/09. Unfortunately, PPN not offered at [facility]. Improvement of symptoms s/p BM, patient planned [...] guidance 02/09. Unfortunately, PPN not offered at [facility]. Improvement of symptoms s/p BM, patient planned [...] guidance 02/09. Unfortunately, PPN not offered at [facility]. - Appreciate Nutrition consult - Encourage PO [...] Overview (05/08/2016): IMO update Assessment & Plan (08/14/2025 2:43 PM EST): Pain seems to be mainly in his ribs 2/2 metastasis. Primary Onc: Dr. Hooper -Continue fentanyl patch -Continue prn IV dilaudid for acute pain. -Continue lidocaine patches to metastatic rib sites as tolerated. 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 Primary Onc: Dr. Hooper -Continue fentanyl patch -Continue prn IV dilaudid for acute pain. -Continue lidocaine patches to metastatic rib sites as tolerated. 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 Primary Onc: Dr. Hooper -Continue fentanyl patch -Continue prn IV dilaudid for acute pain. -Continue lidocaine patches to metastatic rib sites as tolerated. 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 -Continue fentanyl patch -Continue prn IV dilaudid for acute pain. -Continue lidocaine patches to metastatic rib sites as tolerated. 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 -Continue fentanyl patch -Continue prn IV dilaudid for acute pain. -Continue lidocaine patches to metastatic rib sites as tolerated. -Aggressive bowel regimen Assessment & Plan (08/09/2025 5:42 PM EST): Pain seems to be mainly in his ribs. -Continue fentanyl patch -Continue prn IV dilaudid for acute pain. -Continue lidocaine patches to metastatic rib sites as tolerated. Assessment & Plan (08/09/2025 1:25 AM EST): Pain seems to be mainly in his ribs. Continue fentanyl patch, prn IV dilaudid for acute pain. Add lidocaine patches to metastatic rib sites as tolerated. Assessment & Plan (07/09/2025 3:30 PM EST): IMPRESSION: This is a 70-year-old man with the following diagnosis: Prostate adenocarcinoma, stage IV, skeletal mets 2005: Initial diagnosis of prostate cancer, [place] score 7, s/p radical prostatectomy - followed by PSA only recurrence - received salvage radiation therapy and ADT 12/2022: Systemic recurrence with skeletal metastatic disease with destruction of the ribs for which he received palliative radiation therapy 01/2024: Developed additional recurrence/progression of his skeletal metastatic disease with spine involvement Epigastric discomfort, nausea, vomiting, dehydration and weight loss -improving -referred to GI Pain management -managed by palliative care team Constipation Anemia - stable Pulmonary nodule likely infectious/inflammatory in nature DISCUSSION: I discussed overall impression, natural history [...] pain regimen, managed by palliative care team. 05/10/2025: Restaging PSMA PET scan did not show any evidence of active/new disease. PSA has been overall stable. I reassured him about this. 05/30/2025. CT scan of the abdomen and pelvis did not show any evidence of progression. Pulmonary and nodule likely infectious/inflammatory in nature. His PSA has gone up since he has not been taking Nubeqa. He has now agreed to resume it and I advised him to compliant with this. I recommended continuing current treatment until disease progression or unacceptable toxicity. RECOMMENDATIONS: The patient has now agreed to resume Nubeqa/darolutamide in the current standard dose Advised him to be compliant with this medication Continue ADT Lupron every 6 months -gets it through urology -next is due in July Continue Zometa 4 mg every 3 months -next due around 08/13/2025 Pain management as per palliative care team GI consultation has been requested Continue IV fluids hydration as needed in the clinic He is following with administration physician Follow-up/restaging scans in August of next year Return for follow-up in 5-6 weeks Thank you very much for allowing to participate in this patient's care Assessment & Plan (05/29/2025 9:31 AM EDT): IMPRESSION: This is a 70-year-old man with the following diagnosis: Prostate adenocarcinoma, stage IV, skeletal mets 2005: Initial diagnosis of prostate cancer, [place] score 7, s/p radical prostatectomy - followed by PSA only recurrence - received salvage radiation therapy and ADT 12/2022: Systemic recurrence with skeletal metastatic disease with destruction of the ribs for which he received palliative radiation therapy 01/2024: Developed additional recurrence/progression of his skeletal metastatic disease with spine involvement Epigastric discomfort, nausea, vomiting, dehydration and weight loss Pain management -managed by palliative care [...] pain regimen, managed by palliative care team. 05/10/2025: Restaging PSMA PET scan did not show any evidence of active/new disease. PSA has been overall stable. I reassured him about this. He has been doing well from oncological standpoint on current therapy without any evidence of cancer progression and I reassured him about this. I recommended continuing current treatment until disease progression or unacceptable toxicity. For his ongoing epigastric discomfort, nausea, vomiting, dehydration and weight loss -I recommended urgent GI evaluation. He will be receiving IV fluids a couple times a week in the clinic-is following with administration physician in this regard. He has been on a PPI which she will continue. I also recommended him to take some antinausea medications before eating. RECOMMENDATIONS: Continue Nubeqa/darolutamide Continue ADT Lupron every 6 months -gets it through urology -next is due in July Continue Zometa 4 mg every 3 months -next due around 08/13/2025 Pain management as per palliative care team Urgent GI consultation Scheduled for IV fluids hydration twice a week in the clinic He is following with administration physician Advised him to go to the ER if symptoms worsens Return for follow-up in 3 to 4 weeks Thank you very much for allowing to participate in this patient's care Assessment & Plan (04/29/2025 12:23 PM EDT): IMPRESSION: This is a 70-year-old man with the following diagnosis: Prostate adenocarcinoma, stage IV, skeletal mets 2005: Initial diagnosis of prostate cancer, [place] score 7, s/p radical prostatectomy - followed [...] to not taking Darolutamide for several months 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 Primary Onc: Dr. Vira Valencia ([facility])/Local Oncologst: Dr. 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 Primary Onc: Dr. Vira Valencia ([facility])/Local Oncologst: Dr. 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 Primary Onc: Dr. Vira Valencia ([facility])/Local Oncologst: Dr. 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 Primary Onc: Dr. Vira Valencia ([facility])/Local Oncologst: Dr. 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 Primary Onc: Dr. Vira Valencia ([facility])/Local Oncologst: Dr. 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 Course c/b worsening #cancer pain, MRI entire spine 02/15 shows bony mets T5-9 w/ minimally increased paraspinal component w/ epidural disease, but no cord compression. Restaging CTCAP 02/15 w/o evidence of metastatic disease in chest or abd/pelvis. Primary Onc: Dr. Vira Valencia ([facility])/Local Oncologst: Dr. 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 Course c/b worsening #cancer pain, MRI entire spine 02/15 shows bony mets T5-9 w/ minimally increased paraspinal component w/ epidural disease, but no cord compression. Restaging CTCAP 02/15 w/o evidence of metastatic disease in chest or abd/pelvis. Primary Onc: Dr. Vira Valencia ([facility])/Local Oncologst: Dr. Maynard ([facility]); Outpatient Rad Onc: Dr Zhang - [...] Dr. Vira Valencia/ Local Oncologst: Dr. Maynard ([facility]) - Onc plan per primary onc [...] Dr. Vira Valencia/ Local Oncologst: Dr. Maynard ([facility]) - Onc plan per primary onc [...] mets 2005: Initial diagnosis of prostate cancer, [place] score 7, s/p radical prostatectomy Subsequently received [...] control. I have reached out to the [facility] team. Patient is sent to the ER for pain management, palliative care consultation and hydration. RECOMMENDATIONS: Patient is sent to the ER and I have called and discussed the case with the triage nurse Patient needs hospitalization for Pain management and IV hydration I would recommend palliative care consultation and radiation oncology consultation Will discuss [facility] team to see if patient needs to be transferred to [facility] for further management in this regard Thank you very much for allowing to participate in this patient's care Assessment & Plan (12/15/2024 1:05 PM EDT): IMPRESSION: This is a 69-year-old man with the following diagnosis: Prostate adenocarcinoma, stage IV, skeletal mets 2006: Initial diagnosis of prostate cancer, [place] score 7, s/p radical prostatectomy Subsequently received [...] He will maintain close follow-up with his [facility] team Return for follow-up in after [...] and Taxotere chemotherapy. I reviewed records from [facility]. He was seen by neurosurgery and [...] He will maintain close follow-up with his [facility] team Return for follow-up in 6 weeks with labs Thank you very much for allowing to participate in this patient's care Assessment & Plan (06/30/2024 12:52 PM EDT): IMPRESSION: This is a 68-year-old man with the following diagnosis: Prostate adenocarcinoma, stage IV, skeletal mets 2005: Initial diagnosis of prostate cancer, [place] score 7, s/p radical prostatectomy Subsequently received [...] and Taxotere chemotherapy. I reviewed records from [facility]. He was seen by neurosurgery and [...] He will maintain close follow-up with his [facility] team Return for follow-up in 3 [...] and Taxotere chemotherapy. I reviewed records from [facility]. He was seen by neurosurgery and [...] He will maintain close follow-up with his [facility] team Return for follow-up in 3 [...] and Taxotere chemotherapy. I reviewed records from [facility]. He was seen by neurosurgery and [...] He will maintain close follow-up with his [facility] team Return for follow-up in 3 weeks Thank you very much for allowing to participate in this patient's care Assessment & Plan (03/16/2024 2:01 PM EDT): IMPRESSION: This is a 68-year-old man with the following diagnosis: Prostate adenocarcinoma, stage IV, skeletal mets 2006: Initial diagnosis of prostate cancer, [place] score [...] chemotherapy. I reviewed all his records from [facility]. I agree with recommendations by Dr. [...] chemo teaching Patient will meet with our certified social workers in health care and administration physician He is scheduled to undergo a PSMA [...] mg tablet darolutamide (NUBEQA) 300 mg tablet HYDRATION & SUPPORTIVE CARE* Plan Start Date:05/30/2025 Plan Provider:Chanel Whitt NP Linked Problems DehydrationMalignant neoplas m of prostateProstate cancer Treatment Medications No medications scheduled. ZOLEDRONIC ACID (ZOMETA)* Plan Start Date:05/14/2025 Plan Provider:Scott Hooper MBBS Linked Problems Malignant [...] (LUPRON DEPOT 3 MONTH) 04/03/2015 04/09/2017 leuprolide acetate (3 month) (LUPRON DEPOT 3 MONTH) a. Therapy Complete Vira Nur MD Oncology Therapy Plan Supplemental Plan Name Start Date Discontinue Date Treatment Medications Discontinue Reason Plan Provider BLOOD PRODUCT TRANSFUSION 04/27/2024 04/27/2024 No medications scheduled. m. Entered in error Kelsie Jamison CNP FERUMOXYTOL (FERAHEME) 04/27/2024 04/27/2024 No medications scheduled. m. Entered in error Kelsie Jamison CNP Current Radiation Episodes * 3D WATER RESOURCE ENGINEER: Thoracic spineOverview* First Treatment Date Latest Treatment Date Treatment Site Technique Goal Episode Provider 02/19/2025 02/23/2025 Thoracic spine 3D WATER RESOURCE ENGINEER Palliative Jos Carrillo MD * Linked Problems Prostate cancer metastatic t o bone * Episode Note Justin Briceno is a 69 y.o. male from [place] met prostate Ca (s/p RP/EBRT/ADT in 2005), met progression 2023 s/p darolutamide (off recently), Pal RT T7-T8 spine/paraspinal mass (04/2023, 28/06 @[facility]), w/ acute on chronic thoracic/low back pain with local PD T6-T9. Plan: ReRT 5fx. Treatment Courses* Course C1 02/19/2025 - 02/23/2025 Treatment Period Fraction Dose Fractions Total Dose Plans Planned A1_T4-T10 02/19/2025 - 02/23/2025 400 cGy 5 / 5 2 ,000 cGy Reference Points Delivered A_T4-T10 02/19/2025 - 02/23/2025 2,000 cGy Lifetime Dose Tracking * Chemical Lifetime Dose Automatic Entry Manual Entr y Invasive Cardiology Radiation Exposure 1 mGy 0 mGy 1 mGy 2. DAP 19.03 uGy-m2 0 uGy-m2 19.03 uGy-m2 Fluoro Time 0.2 minute 0 minute 0.2 minute
--- OUTSIDE RECORDS SUMMARY | 2025-08-21 11:26 | XMS_ITS | Encounter Summary ---
Author Organization [facility] Address [address] [place] [address] [address] [place] [address] Phone Care Team Providers Care Feather Shaper Name Role Phone Chirag River MD Primary Care Provider Wilfred Maynard MD Unavailable [phone] Vira Nur MD Unavailable [phone] Gadiel Tripp Unavailable [phone] Wilfred Maynard MD Unavailable [phone] Leslie Coello RN Unavailable [email or web address] Unavailable [phone] Gadiel Tripp Primary Care Provider + Chanel Whitt NP Unavailable [phone] Encounter Details Date Type Department Care Team (Late st Contact Info) Description 04/22/2023 Procedure Pass [facility] [address] [place] [address] Social History Tobacco Use Types Packs/Day Years [...] Description 09/13/2025 2:20 PM EST Office Visit [facility] Hematology Oncology Clinic at [address] [address] Scott Hooper MBBS [address] [place] [phone] [email or web address] 09/13/2025 2:40 PM EST Nutrition [facility] Hematology Oncology Clinic at [address] [address] Scott Hooper MBBS [address] [place] [address] [email or web address] 09/25/2025 10:30 AM EST Office Visit [facility] Gastroenterology Clinic [address] [place] [address] Jenn Dang PA-C [address] [id number] documented as of this encounter Visit Diagnoses Not on filedocumented in this encounter Care Teams Feather Shaper Relationship Specialty Start Date End Date Chirag River MD [address] [place] [address] Dr Solano [address] [place] [phone] PCP - General Internal Medicine 06/21/15 12/18/24 Gadiel Tripp PA [address] [place] [phone] PCP - General Physician Apiculturist 12/19/24 Wilfred Maynard MD [address] [place] [address] Dr Solano [address] [place] [phone] Referring Physician Internal Medicine 11/19/15 Vira Nur MD [address] [place] [phone] [email or web address] 04/16/23 Gadiel Tripp PA [address] [place] [phone] Physician Apiculturist 04/16/23 Wilfred Maynard MD [address] [place] [address] [address] Referring Physician Medical Oncology 04/16/23 Leslie Coello RN [address] [place] [id number] [email or web address] Infusion Nurse 02/22/24 Scott Hooper MBBS [address] [place] [phone] [email or web address] 03/01/24 Chanel Whitt NP [address] [place] [phone] [email or web address] Nurse Practitioner Nurse Practitioner 06/01/25 documented as of this encounter Additional Source Comments The information contained in this document represents components of the legal health record. It is not the complete legal health record.[facility]
--- OUTSIDE RECORDS SUMMARY | 2025-08-21 11:26 | XMS_ITS | Encounter Summary ---
Author Organization [facility] Address [address] [facility] [address] [place] [address] Phone Care Team Providers Care General Farm Hand Name Role Phone Wilfred Maynard MD Unavailable [phone] Vira Nur MD Unavailable [phone] Gadiel Tripp Unavailable Wilfred Maynard MD Unavailable [phone] Leslie Coello RN Unavailable Leslie [email or web address] Scott HooperBS Unavailable [phone] Gadiel Tripp Primary Care Provider + Chanel Whitt NP Unavailable [phone] Encounter Details Date Type Department Care Team (Late st Contact Info) Description 02/23/2025 Home Health Resumption of Care Planning [facility] [address] [place] [address] Lucy Horta, FLAKITO [address] [place] [address] [email or web address] Social History Tobacco Use Types Packs/Day Years [...] Description 09/13/2025 2:20 PM EST Office Visit [facility] Hematology Oncology Clinic at [address] [address] Scott Hooper MBBS [address] [place] [address] [email or web address] 09/13/2025 2:40 PM EST Nutrition [facility] Hematology Oncology Clinic at [address] [address] Scott Hooper MBBS [address] [place] [address] [email or web address] 09/25/2025 10:30 AM EST Office Visit [facility] Gastroenterology Clinic [address] [place] [address] Jenn Dang PA-C [address] [place] [address] [email or web address] documented as of this encounter Visit Diagnoses Not on filedocumented in this encounter Care Teams General Farm Hand Relationship Specialty Start Date End Date Gadiel Tripp PA [address] [place] [address] PCP - General Physician Meat Packer 12/19/24 Wilfred Maynard MD [address] [place] [address] [place] [address] Referring Physician Internal Medicine 11/19/15 Vira Nur MD [address] [place] [address] 1230 [place] [address] [email or web address] Medical Oncology 04/16/23 Gadiel Tripp PA [address] [place] [address] Physician Meat Packer 04/16/23 Wilfred Maynard MD [address] [place] [address] [place] [address] Referring Physician Medical Oncology 04/16/23 Leslie Coello, FLAKITO [address] [place] [address] [email or web address] Primary Infusion Nurse 02/22/24 Scott Hooper MBBS [address] [place] [address] [email or web address] Medical Oncology 03/01/24 Chanel Whitt NP [address] [place] [address] [email or web address] Nurse Practitioner Nurse Practitioner 06/01/25 documented as of this encounter Additional Source Comments The information contained in this document represents components of the legal health record. It is not the complete legal health record.[facility]
--- OUTSIDE RECORDS SUMMARY | 2025-08-21 11:26 | XMS_ITS | Encounter Summary ---
Author Organization [facility] Address [address] [facility] [address] [place] [address] Phone Care Team Providers Care Roll Dough Divider Name Role Phone Wilfred Maynard MD Unavailable [phone] Vira Nur MD Unavailable [phone] Gadiel Tripp Unavailable [phone] Wilfred Maynard MD Unavailable [phone] Leslie Coello RN Unavailable Leslie [email or web address] Scott Hooper Unavailable [phone] Gadiel Tripp Primary Care Provider + Chanel Whitt NP Unavailable [phone] Encounter Details Date Type Department Care Team (Late st Contact Info) Description 08/08/2025 Orders Only [facility] Cancer [place] Hematology Oncology Clinic at [facility] 30 [place] [address] Chanel Whitt, LUCERO 30 [place] [address] Social History Tobacco Use Types Packs/Day Years [...] your housing situation today? I have yaniv martin 08/08/2025 How many times have you move [...] Description 09/13/2025 2:20 PM EST Office Visit [facility] H[facility]ology Oncology Clinic at [address] [address] Scott Hooper MBBS [address] [place] [address] [email or web address] 09/13/2025 2:40 PM EST Nutrition [facility] Hematology Oncology Clinic at [address] [address] Scott Hooper MBBS [address] [place] [address] [email or web address] 09/25/2025 10:30 AM EST Office Visit [facility] Gastroenterology Clinic [address] [place] [address] Jenn Dang PA-C [address] [place] [address] documented as of this encounter Visit Diagnoses Not on filedocumented in this encounter Care Teams Roll Dough Divider Relationship Specialty Start Date End Date Gadiel Tripp PA 12[address] [place] [address] PCP - General Physician Price Economist 12/19/24 Wilfred Maynard MD [address] [place] [address] [place] [address] Referring Physician Internal Medicine 11/19/15 Vira Nur MD [address] [place] [address] 1230 [place] [address] [email or web address] Medical Oncology 04/16/23 Gadiel Tripp PA [address] [place] [address] Physician Price Economist 04/16/23 Wilfred Maynard MD [address] [place] [address] [place] [address] Referring Physician Medical Oncology 04/16/23 Leslie Coello RN [address] [place] [address] [email or web address] Primary Infusion Nurse 02/22/24 Scott Hooper MBBS [address] [place] [address] [email or web address] Medical Oncology 03/01/24 Chanel Whitt NP [address] [place] [address] [email or web address] Nurse Practitioner Nurse Practitioner 06/01/25 documented as of this encounter Additional Source Comments The information contained in this document represents components of the legal health record. It is not the complete legal health record.[facility]
--- OUTSIDE RECORDS SUMMARY | 2025-08-21 11:26 | XMS_ITS | Encounter Summary ---
Author Organization [facility] Address [address] [place] [address] 985 [place] [address] Phone Care Team Providers Care Soil Surveyor Name Role Phone Wilfred Maynard MD Unavailable [phone] Vira Nur MD Unavailable [phone] Gadiel Tripp Unavailable [phone] Wilfred Maynard MD Unavailable [phone] Leslie Coello RN Unavailable Leslie _[email or web address] Scott Hooper Unavailable [phone] Gadiel Tripp Primary Care Provider + Chanel Whitt NP Unavailable [phone] Reason for Visit * Reason Onset Date Comments Medication Refill 08/16/2025 Encounter Details Date Type Department Care Team (Late st Contact Info) Description 08/16/[address] [facility] Cancer [place] Hematology Oncology Clinic at [address] [address] Kati Weiner RN Medication Refill Social History [...] as of this encounter Progress Notes * Eloise Casiano LDN - 08/20/2025 9:39 AM EST Call placed to Poppy to see how Leroy has been doing at home with her since discharge 08/15. She reports PN is going well, hopefully will be weaned down to 12hrs/day next week. Eating about once daily - recently hamburger, turkey sandwich. She has him on a schedule with his pain medications and senna and he hasn't complained of any nausea. She notes she isn't sure he was taking meds as ordered when home alone even though she would set them up for him. He has commented on going back home, but she is trying to convince him to stay longer as this seems very helpful. If he goes home will need toswitch to [facility] as current VNA does not service Poppy Kohler aware of this. Pt has f/u 09/13 with , RD will see them then as well. Will reach out to RD at [facility] to stay up to date with PN orders. Eloise Casiano RD, LDN * Dayton Granados MD - 08/16/2025 4:54 PM EST Yes please... * Dayton Granados MD - 08/16/2025 4:23 PM EST Let us review potential changes to his medication regimen * Kati Weiner, FLAKITO - 08/16/2025 2:06 PM EST PDMP Fentanyl last filled 07-24-25 #5 15 day supply Oxycodone last filled 07-27-25 #84 14 day supply documented in this encounter Plan of Treatment Upcoming Encounters Date Type Department Care Team (Late st Contact Info) Description 09/13/2025 2:20 PM EST Office Visit [facility] Hematology Oncology Clinic at [address] [address] Scott Hooper MBBS [address] [place] [address] [email or web address] 09/13/2025 2:40 PM EST Nutrition [facility] Hematology Oncology Clinic at [address] [address] Scott Hooper MBBS [address] [place] [address] [email or web address] 09/25/2025 10:30 AM EST Office Visit [facility] Gastroenterology Clinic [address] [place] [address] Jenn Dang PA-C [address] [address] [email or web address] documented as of this encounter Visit Diagnoses Diagnosis Malignant neoplasm of prostate documented in this encounter Care Teams Soil Surveyor Relationship Specialty Start Date End Date Gadiel Tripp PA 12[address] [place] [address] PCP - General Physician Starchmaker 12/19/24 Wilfred Maynard MD [address] [place] [address] [place] [address] Referring Physician Internal Medicine 11/19/15 Vira Nur MD [address] [place] [address] 1230 [place] [address] [email or web address] Medical Oncology 04/16/23 Gadiel Tripp PA [address] [place] [address] Physician Starchmaker 04/16/23 Wilfred Maynard MD [address] [place] [address] [place] [address] Referring Physician Medical Oncology 04/16/23 Leslie Coello, FLAKITO [address] [place] [address] [email or web address] Primary Infusion Nurse 02/22/24 Scott Hooper MBBS [address] [place] [address] [email or web address] Medical Oncology 03/01/24 Chanel Whitt NP [address] [place] [address] [email or web address] Nurse Practitioner Nurse Practitioner 06/01/25 documented as of this encounter Additional Source Comments The information contained in this document represents components of the legal health record. It is not the complete legal health record.[facility]
--- OUTSIDE RECORDS SUMMARY | 2025-08-21 11:26 | XMS_ITS | Encounter Summary ---
Author Organization [facility] Address [address] [facility] [address] [place] [address] Phone Care Team Providers Care Lining Brusher Name Role Phone Wilfred Maynard MD Unavailable [phone] Vira Nur MD Unavailable [phone] Gadiel Tripp Unavailable [phone] Wilfred Maynard MD Unavailable [phone] Leslie Coello RN Unavailable Leslie Krause@[email or web address] Scott HooperBS Unavailable [phone] Gadiel Tripp Primary Care Provider + Chanel Whitt NP Unavailable [phone] Encounter Details Date Type Department Care Team (Late st Contact Info) Description 08/14/2025 Procedure Pass [facility] Scan - [address] [address] Social History Tobacco Use Types Packs/Day Years [...] Description 09/13/2025 2:20 PM EST Office Visit [facility] Hematology Oncology Clinic at [address] [address] Scott Hooper [address] [address] [email or web address] 09/13/2025 2:40 PM EST Nutrition [facility] Hematology Oncology Clinic at [address] [address] Scott Hooper [address] [address] [email or web address] 09/25/2025 10:30 AM EST Office Visit [facility] Gastroenterology Clinic [address] [place] [address] Jenn Dang PA-C [address] [address] [email or web address] documented as of this encounter Visit Diagnoses Not on filedocumented in this encounter Care Teams Lining Brusher Relationship Specialty Start Date End Date Gadiel Tripp PA 1221 [place] [address] PCP - General Physician Pin Pusher 12/19/24 Wilfred Maynard MD [address] [place] [address] [place] [address] Referring Physician Internal Medicine 11/19/15 Vira Nur MD [address] [place] [address] 1230 [place] [address] [email or web address] Medical Oncology 04/16/23 Gadiel Tripp PA [address] [place] [address] Physician Pin Pusher 04/16/23 Wilfred Maynard MD [address] [place] [address] [place] [address] Referring Physician Medical Oncology 04/16/23 Leslie Coello, RN [address] [place] [address] [email or web address] Primary Infusion Nurse 02/22/24 Scott Hooper MBBS [address] [place] [address] [email or web address] Medical Oncology 03/01/24 Chanel Whitt NP 30 [place] [address] [email or web address] Nurse Practitioner Nurse Practitioner 06/01/25 documented as of this encounter Additional Source Comments The information contained in this document represents components of the legal health record. It is not the complete legal health record.[facility]
--- OUTSIDE RECORDS SUMMARY | 2025-08-21 11:26 | XMS_ITS | Encounter Summary ---
Author Organization [facility] Address [address] [facility] [address] [place] [address] Phone Care Team Providers Care Energy Economist Name Role Phone Wilfred Maynard MD Unavailable [phone] Vira Nur MD Unavailable [phone] Gadiel Tripp Unavailable [phone] Wilfred Maynard MD Unavailable [phone] Leslie Coello RN Unavailable Leslie Krause@[email or web address] Scott Hooper Unavailable [phone] Gadiel Tripp Primary Care Provider + Chanel Whitt NP Unavailable [phone] Reason for Visit * Reason Onset Date Comments dressing change order 08/17/2025 Encounter Details Date Type Department Care Team (Late st Contact Info) Description 08/17/2025 Telephone [facility] Cancer [place] Hematology Oncology Clinic at [facility] [address] [place] [address] Scott Hooper MBBS [address] [place] [address] [email or web address] dressing change order Social History Tobacco Use Types Packs/Day Years [...] as of this encounter Progress Notes * Fany Alas RN - 08/17/2025 4:15 PM EST Verbal order provided to change picc dressing on Wednesday instead of Wednesday * Ansley Harding - 08/17/2025 4:11 PM EST Lilia from A called regarding needing dressing order updated for pt have done on Wednesday instead of Wednesday, spoke with triage nurse and transferred call to her documented in this encounter Plan of Treatment Upcoming Encounters Date Type Department Care Team (Late st Contact Info) Description 09/13/2025 2:20 PM EST Office Visit [facility] Hematology Oncology Clinic at [place] [address] [address] Scott Hooper, EVAN [address] [place] [address] [email or web address] [place] 09/13/2025 2:40 PM EST Nutrition [facility] [place] Hemat[facility] Oncology Clinic at [facility] [address] [place] [address] Scott Hooper MBBS [address] [place] [address] [email or web address] [place] 09/25/2025 10:30 AM EST Office Visit [facility] Gastroenterology Clinic 10 [place] [address] Jenn Dang PA-C [address] [address] [email or web address] documented as of this encounter Visit Diagnoses Not on filedocumented in this encounter Care Teams Energy Economist Relationship Specialty Start Date End Date Gadiel Tripp PA [address] [place] [address] PCP - General Physician Certified Industrial Hygienist 12/19/24 Wilfred Maynard MD [address] [place] [address] [place] [address] Referring Physician Internal Medicine 11/19/15 Vira Nur MD [address] [place] [address] [email or web address] Medical Oncology 04/16/23 aGdiel Tripp PA [address] [place] [address] Physician Certified Industrial Hygienist 04/16/23 Wilfred Maynard MD [address] [place] [address] [place] [address] Referring Physician Medical Oncology 04/16/23 Leslie Coello, RN [address] [facility] [place] [address] [email or web address] Primary Infusion Nurse 02/22/24 Scott Hooper MBBS [address] [place] [address]. [place] [address] [email or web address] Medical Oncology 03/01/24 Chanel Whitt NP [address] [place] [address] [email or web address] Nurse Practitioner Nurse Practitioner 06/01/25 documented as of this encounter Additional Source Comments The information contained in this document represents components of the legal health record. It is not the complete legal health record.[facility]
--- OUTSIDE RECORDS SUMMARY | 2025-08-21 11:27 | XMS_ITS | Encounter Summary ---
Author Organization [facility] Address [address] [place] [address] [address] [place] [address] Phone Care Team Providers Care Learning Technologies Specialist Name Role Phone Wilfred Maynard MD Unavailable [phone] Vira Nur MD Unavailable [phone] Gadiel Tripp Unavailable [phone] Wilfred Maynard MD Unavailable [phone] Leslie Coello RN Unavailable Leslie [email or web address] Scott HooperBS Unavailable [phone] Gadiel Tripp Primary Care Provider + Chanel Whitt NP Unavailable [phone] Encounter Details Date Type Department Care Team (Late st Contact Info) Description 08/10/2025 Procedure Pass [facility] Endoscopy Admitting Dept Virtual Department [address] [place] [address] [phone] Social History Tobacco Use Types Packs/Day Years [...] Description 09/13/2025 2:20 PM EST Office Visit [facility] Hematology Oncology Clinic at [address] [address] Scott Hooper [address] [address] [email or web address] 09/13/2025 2:40 PM EST Nutrition [facility] Hematology Oncology Clinic at [address] [address] Scott Hooper [address] [address] [email or web address] 09/25/2025 10:30 AM EST Office Visit [facility] Gastroenterology Clinic [address] [place] [address] Jenn Dang PA-C [address] [address] [email or web address] documented as of this encounter Visit Diagnoses Not on filedocumented in this encounter Care Teams Learning Technologies Specialist Relationship Specialty Start Date End Date Gadiel Tripp PA 1221 [place] [address] PCP - General Physician Utility System Repairer 12/19/24 Wilfred Maynard MD [address] [place] [address] [place] [address] Referring Physician Internal Medicine 11/19/15 Vira Nur MD [address] [place] [address] 1230 [place] [address] [email or web address] Medical Oncology 04/16/23 Gadiel Tripp PA [address] [place] [address] Physician Utility System Repairer 04/16/23 Wilfred Maynard MD [address] [place] [address] [place] [address] Referring Physician Medical Oncology 04/16/23 Leslie Coello, RN [address] [place] [address] [email or web address] Primary Infusion Nurse 02/22/24 Scott Hooper MBBS [address] [place] [address] [email or web address] Medical Oncology 03/01/24 Chanel Whitt NP 30 [place] [address] [email or web address] Nurse Practitioner Nurse Practitioner 06/01/25 documented as of this encounter Additional Source Comments The information contained in this document represents components of the legal health record. It is not the complete legal health record.[facility]
--- OUTSIDE RECORDS SUMMARY | 2025-08-21 11:27 | XMS_ITS | Encounter Summary ---
Author Organization [facility] Address [address] [place] [address] Phone Care Team Providers Care Escalator Mechanic Name Role Phone Wilfred Maynard MD Unavailable [phone] Vira Nur MD Unavailable [phone] Gadiel Tripp Unavailable [phone] Wilfred Maynard MD Unavailable [phone] Leslie Coello RN Unavailable Leslie [email or web address] Scott Hooper Unavailable [phone] Gadiel Tripp Primary Care Provider + Chanel Whitt NP Unavailable [phone] Reason for Visit * Reason Onset Date Comments PET CT 08/06/2025 Encounter Details Date Type Department Care Team (Late st Contact Info) Description 08/06/2025 Telephone [facility] Cancer [place] H[facility] Oncology [facility] at [facility] [address] [place] [address] Chanel Whitt, PHP ENGINEER 30 [place] [address] [email or web address] PET CT Social History Tobacco Use Types Packs/Day Years [...] as of this encounter Progress Notes * Kitty Snyder - 08/17/2025 3:37 PM EST Called and spoke to Poppy confirming date and time of f/u appt w/ on 09/13/25 Poppy agrees with day and time * Kitty Snyder - 08/16/2025 3:48 PM EST Images from the original note were not included. * Erica Roldan - 08/16/2025 11:51 AM EST I called and reached Poppy --- *I advised her of PET appt date/time, and provided phone number to Mayelin in case she'd rather a different appt time or date Poppy verbalized clear understanding. * Erica Rlodan - 08/16/2025 11:47 AM EST I called, reached, and scheduled w/ Mayelin on pt's behalf: 09/06/25 at [facility], 1:05pm arrival time This was soonest available at the time of scheduling * Kitty Snyder - 08/15/2025 2:43 PM EST Order and paperwork faxed to Mayelin, to be done at [facility]. Due 09/06/25 * Kitty Snyder - 08/07/2025 10:36 AM EST Called and LVM on daughter Poppy's phone requesting c/b. PET due 08/13 - soonest available date would be at [facility] Is pt willing to travel to [facility]? Or does pt want [facility]? * Nancy Suarez - 08/06/2025 2:00 PM EST No PA required for PET CT. Patient can go to any facility documented in this encounter Plan of Treatment Upcoming Encounters Date Type Department Care Team (Late st Contact Info) Description 09/13/2025 2:20 PM EST Office Visit [facility] Hematology Oncology Clinic at [address] [address] Scott Hooper MBBS [address] [place] [address] [email or web address] 09/13/2025 2:40 PM EST Nutrition [facility] Hematology Oncology Clinic at [address] [address] Scott Hooper MBBS [address] [place] [address] [email or web address] 09/25/2025 10:30 AM EST Office Visit [facility] Gastroenterology Clinic 10 [place] [address] Jenn Dang PA-C [address] [address] [email or web address] documented as of this encounter Visit Diagnoses Not on filedocumented in this encounter Care Teams Escalator Mechanic Relationship Specialty Start Date End Date Gadiel Tripp PA [address] [place] [address] PCP - General Physician Head Sampler 12/19/24 Wilfred Maynard MD [address] [place] [address] Dr Solano [address] [place] [address] Referring Physician Internal Medicine 11/19/15 Vira Nur MD [address] [place] [address] [email or web address] Medical Oncology 04/16/23 Gadiel Tripp PA [address] [place] [address] Physician Head Sampler 04/16/23 Wilfred Maynard MD [address] [place] [address] [place] [address] Referring Physician Medical Oncology 04/16/23 Leslie Coello RN [address] [place] [address] [email or web address] Primary Infusion Nurse 02/22/24 Scott Hooper MBBS [address] [place] [address] [email or web address] Medical Oncology 03/01/24 Chanel Whitt NP [address] [place] [address] [email or web address] Nurse Practitioner Nurse Practitioner 06/01/25 documented as of this encounter Additional Source Comments The information contained in this document represents components of the legal health record. It is not the complete legal health record.[facility]
--- OUTSIDE RECORDS SUMMARY | 2025-08-21 11:27 | XMS_ITS | Encounter Summary ---
Author Organization [facility] Address [address] [place] [address] [address] [place] [address] Phone Care Team Providers Care Speech Language Pathologist Travel Name Role Phone Wilfred Maynard MD Unavailable [phone] Vira Nur MD Unavailable [phone] Gadiel Tripp Unavailable [phone] Wilfred Maynard MD Unavailable [phone] Leslie Coello RN Unavailable Leslie [email or web address] Scott HooperBS Unavailable [phone] Gadiel Tripp Primary Care Provider + Chanel Whitt NP Unavailable [phone] Encounter Details Date Type Department Care Team (Late st Contact Info) Description 08/14/2025 Procedure Pass [facility] 30 [place], [place] [id number] Social History Tobacco Use Types Packs/Day Years [...] [facility] Hematology On[facility] Clinic at [address] [address] [address] [address] [email or web address] 09/13/2025 2:40 PM EST Nutrition [facility] Hematology Oncology Clinic at [address] [address] [address] [address] [email or web address] 09/25/2025 10:30 AM EST Office Visit [facility] Gastroenterology Clinic 10 [place] [address] Jenn Dang PA-C [address] [address] [email or web address] documented as of this encounter Visit Diagnoses Not on filedocumented in this encounter Care Teams Speech Language Pathologist Travel Relationship Specialty Start Date End Date Gadiel Tripp PA [address] [place] [address] PCP - General Physician Surgical Lead 4/22/25 Wilfred Maynard MD [address] [place] [address] [place] [address] Referring Physician Internal Medicine 11/19/15 Vira Nur MD [address] [place] [address] 1230 [place] [address] [email or web address] 04/16/23 [place] [address] [place] [address] Physician Surgical Lead 04/16/23 Wilfred Maynard MD [address] [place] [address] [place] [address] Referring Physician Medical Oncology 04/16/23 Leslie Coello, RN [address] [place] [address] [email or web address] Primary Infusion Nurse 02/22/24 Scott Hooper MBBS [address] [place] [address] [email or web address] Medical [email or web address] 03/01/24 Chanel Whitt NP 30 [place] [address] [email or web address] Nurse Practitioner Nurse Practitioner 06/01/25 documented as of this encounter Additional Source Comments The information contained in this document represents components of the legal health record. It is not the complete legal health record.[facility]
--- OUTSIDE RECORDS SUMMARY | 2025-08-21 11:27 | XMS_ITS | Encounter Summary ---
Author Organization [facility] Address [address] [place] [address] [address] [place] [address] Phone Care Team Providers Care Hot Dimpling Machine Operator Name Role Phone Wilfred Maynard MD Unavailable [phone] Vira Nur MD Unavailable [phone] Gadiel Tripp Unavailable [phone] Wilfred Maynard MD Unavailable [phone] Leslie Coello RN Unavailable Leslie [email or web address] Scott HooperBS Unavailable [phone] Gadiel Tripp Primary Care Provider + Chanel Whitt NP Unavailable [phone] Encounter Details Date Type Department Care Team (Late st Contact Info) Description 02/14/2025 Procedure Pass [facility] [address] [place] [address] Social History Tobacco Use Types Packs/Day Years [...] 5:28 PM EDT Sexual Orientation Straight 04/16/2023 5 :28 PM EDT documented as of this encounter Plan of Treatment Upcoming Encounters Date Type Department Care Team (Late st Contact Info) Description 09/13/2025 2:20 PM EST Office Visit [facility] Hematology Oncology Clinic at [address] [address] Scott Hooper [address] [address] [email or web address] 09/13/2025 2:40 PM EST Nutrition [facility] Hematology Oncology Clinic at [address] [address] [address] Hooper [address] [address] [email or web address] 09/25/2025 10:30 AM EST Office Visit [facility] Gastroenterology Clinic 10 [place] [address] Jenn Dang PA-C [address] [address] [email or web address] documented as of this encounter Visit Diagnoses Not on filedocumented in this encounter Care Teams Hot Dimpling Machine Operator Relationship Specialty Start Date End Date Gadiel Tripp PA [address] [place] [address] PCP - General Physician Agriculture Inspector 12/19/24 Wilfred Maynard MD [address] [place] [address] [place] [address] Referring Physician Internal Medicine 11/19/15 Vira Nur MD [address]30 [place] [address] [email or web address] Medical Oncology 04/16/23 [place] [address] [place] [address] Physician Agriculture Inspector 04/16/23 Wilfred Maynard MD [address] [place] [address] [place] [address] Referring Physician Medical Oncology 04/16/23 Leslie Coello, RN [address] [place] [address] [email or web address] Primary Infusion Nurse 02/22/24 Scott Hooper MBBS [address] [place] [address] [email or web address] Medical Oncology 03/01/24 Chanel Whitt NP [address] [place] [address] [email or web address] Nurse Practitioner Nurse Practitioner 06/01/25 documented as of this encounter Additional Source Comments The information contained in this document represents components of the legal health record. It is not the complete legal health record.[facility]
--- OUTSIDE RECORDS SUMMARY | 2025-08-21 11:27 | XMS_ITS | Encounter Summary ---
Author Organization [facility] Address [address] [place] [address] Phone Care Team Providers Care Research Methods Instructor Name Role Phone Wilfred Maynard MD Unavailable [phone] Vira Nur MD Unavailable Gadiel Tripp Unavailable Wilfred Maynard MD Unavailable [phone] Leslie Coello RN Unavailable Leslie [email or web address] Scott Hooper Unavailable [phone] Gadiel Tripp Primary Care Provider + Chanel Whitt NP Unavailable [phone] Encounter Details Date Type Department Care Team (Late st Contact Info) Description 08/06/2025 Orders Only [facility] Cancer [place] Hematology Oncology Clinic at [facility] 30 [place] [address] Chanel Whitt, LUCERO [address] [place], [place] [address] [email or web address] Malignant neoplasm of prostate (Primary Dx); Dysuria Social History Tobacco Use Types Packs/Day Years [...] Description 09/13/2025 2:20 PM EST Office Visit [facility] Hematology Oncology Clinic at [address] [address] Scott Hooper MBBS [address] [place] [address] [email or web address] 09/13/2025 2:40 PM EST Nutrition [facility] Hematology Oncology Clinic at [address] [address] Scott Hooper MBBS [address] [place] [address] [email or web address] 09/25/2025 10:30 AM EST Office Visit [facility] Gastroenterology Clinic [address] [place] [address] Jenn Dang PA-C [address] [place] [address] documented as of this encounter Results * (ABNORMAL) Urinalysis with Reflex to Urine Culture (08/06/2025 1:48 PM EST) Color Anna(A) Yellow 08/06/2025 2:19 PM [facility] Comment:Abnormal urine color may be associated with false-positive results. Interpret results with caution. Clarity Clear Clear 08/06/2025 2:19 PM [facility] Glucose Negative Negative 08/06/2025 2:19 PM [facility] Bilirubin Urine 1+(A) Negative 2:19 PM [facility] Ketone Urine Trace(A) Negative 08/06/2025 2:19 PM [facility] Specific Preston 1.025 1.001 - 1.035 08/06/2025 2:19 PM [facility] Blood Trace(A) Negative 08/06/2025 2:19 PM [facility] pH 6.0 5.0 - 8.0 08/06/2025 2:19 PM [facility] Protein 1+(A) Negative 08/06/2025 2:19 PM [facility] Nitrites Negative Negative 08/06/2025 2:19 PM [facility] Leukocyte Esterase Negative Negative 08/06/2025 2:19 PM [facility] Urobilinogen Negative Negative 08/06/2025 2:19 PM [facility] Urine (Urine, Voided) Non-Blood Collection / Unknown 08/06/2025 1:48 PM EST 08/06/2025 1:53 PM EST us Chanel Whitt ASPHALT STILL OPERATOR LAB URINE ORDERABLES Fin al Result [facility] [address] [place] [address] documented in this encounter Visit Diagnoses Diagnosis Malignant neoplasm of prostate- Primary Dysuria documented in this encounter Care Teams Research Methods Instructor Relationship Specialty Start Date End Date Gadiel Tripp PA [facility]1 [place] [address] PCP - General Physician [place] [facility] Hand 12/19/24 Wilfred Maynard MD [address] [place] [address] [facility] [place] [address] Referring Physician Internal Medicine 11/19/15 Vira Nur MD [address] 1230 [place] [address] [email or web address] 04/16/23 [place] [address] [place] [address] Physician [facility] Hand 04/16/23 Wilfred Maynard MD [address] [place] [address] [place] [address] Referring Physician Medical Oncology 04/16/23 Leslie Coello, RN [address] [place] [address] [email or web address] Primary Infusion Nurse 02/22/24 Scott Hooper MBBS [address] [place] [address] [email or web address] Medical Oncology 03/01/24 Chanel Whitt NP [address] [place] [address] [email or web address] Nurse Practitioner Nurse Practitioner 06/01/25 documented as of this encounter Additional Source Comments The information contained in this document represents components of the legal health record. It is not the complete legal health record.[facility]
--- OUTSIDE RECORDS SUMMARY | 2025-08-21 11:27 | XMS_ITS | Encounter Summary ---
Author Organization [facility] Address [address] [place] [address] Phone Care Team Providers Care Assistant Analyst Name Role Phone Wilfred Maynard MD Unavailable [phone] Vira Nur MD Unavailable Gadiel Tripp Unavailable Wilfred Maynard MD Unavailable [phone] Leslie Coello RN Unavailable Leslie [email or web address] Scott Hooper Unavailable [phone] Gadiel Tripp Primary Care Provider + Chanel Whitt NP Unavailable [phone] Encounter Details Date Type Department Care Team (Late st Contact Info) Description 08/09/2025 Orders Only [facility] Cancer [place] Hematology Oncology Clinic at [facility] 30 [place] [address] Chanle Whitt, LUCERO 30 [place] [address] [email or web address] Social History Tobacco Use Types Packs/Day Years [...] 09/13/2025 2:20 PM EST Office Visit [facility] Hematology Oncology Clinic at [address] [address] Scott Hooper MBBS [address] [place] [address] [email or web address] 09/13/2025 2:40 PM EST Nutrition [facility] Hematology Oncology Clinic at [address] [address] Scott Hooper MBBS [address] [place] [address] [email or web address] 09/25/2025 10:30 AM EST Office Visit [facility] Gastroenterology Clinic [address] [place] [address] Jenn Dang PA-C [address] [place] [address] documented as of this encounter Visit Diagnoses Not on filedocumented in this encounter Care Teams Assistant Analyst Relationship Specialty Start Date End Date Gadiel Tripp PA [address] [place] [address] PCP - General Physician President Educational Institution 12/19/24 Wilfred Maynard MD [address] [place] [address] [place] [address] Referring Physician Internal Medicine 11/19/15 Vira Nur MD [address] [place] [address] 1230 [place] [address] [email or web address] Medical Oncology 04/16/23 Gadiel Tripp PA [address] [place] [address] Physician President Educational Institution 04/16/23 Wilfred Maynard MD [address] [place] [address] [place] [address] Referring Physician Medical Oncology 04/16/23 Leslie Coello RN [address] [place] [address] [email or web address] Primary Infusion Nurse 02/22/24 Scott Hooper MBBS [address] [place] [address] [email or web address] Medical Oncology 03/01/24 Chanel Whitt NP [address] [place] [address] [email or web address] Nurse Practitioner Nurse Practitioner 06/01/25 documented as of this encounter Additional Source Comments The information contained in this document represents components of the legal health record. It is not the complete legal health record.[facility]
--- OUTSIDE RECORDS SUMMARY | 2025-08-21 11:28 | XMS_ITS | Encounter Summary ---
Author Organization [facility] Address [address] [place] [address] [address] [place] [address] Phone Care Team Providers Care Diesel Scoop Operator Name Role Phone Wilfred Maynard MD Unavailable [phone] Vira Nur MD Unavailable [phone] Gadiel Tripp Unavailable [phone] Wilfred Maynard MD Unavailable [phone] Lselie Coello RN Unavailable Leslie [email or web address] Scott HooperBS Unavailable [phone] Gadiel Tripp Primary Care Provider + Chanel Whitt NP Unavailable [phone] Encounter Details Date Type Department Care Team (Late st Contact Info) Description 02/14/2025 Procedure Pass [facility] [address] [place] [address] Social History Tobacco Use Types Packs/Day Years [...] EST Office Visit [facility] Hematology Oncology Clinic at [address] [address] [address] [address] [email or web address] 09/13/2025 2:40 PM EST Nutrition [facility] Hematology Oncology Clinic at [address] [address] [address]oper [address] [address] [email or web address] 09/25/2025 10:30 AM EST Office Visit [facility] Gastroenterology Clinic [address] [place] [address] Jenn Dang PA-C [address] [address] [email or web address] documented as of this encounter Visit Diagnoses Not on filedocumented in this encounter Care Teams Diesel Scoop Operator Relationship Specialty Start Date End Date Gadiel Tripp PA [address] [place] [address] PCP - General Physician Squirrel Worker 12/19/24 Wilfred Maynard MD [address] [place] [address] [place] [address] Referring Physician Internal Medicine 11/19/15 Vira Nur MD [address] [place] [address] [email or web address] Medical Oncology 04/16/23 [place] [address] [place] [address] Physician Squirrel Worker 04/16/23 Wilfred Maynard MD [address] [place] [address] [place] [address] Referring Physician Medical Oncology 04/16/23 Leslie Coello, RN [address] [place] [address] [email or web address] Primary Infusion Nurse 02/22/24 Scott Hooper MBBS [address] [place] [address] [email or web address] Medical Oncology 03/01/24 Chanel Whitt NP [address] [place] [address] [email or web address] Nurse Practitioner Nurse Practitioner 06/01/25 documented as of this encounter Additional Source Comments The information contained in this document represents components of the legal health record. It is not the complete legal health record.[facility]
--- OUTSIDE RECORDS SUMMARY | 2025-08-21 11:28 | XMS_ITS | Encounter Summary ---
Author Organization [facility] Address [address] [place] [address] Phone Care Team Providers Care Associate Trainer Name Role Phone Wilfred Maynard MD Unavailable [phone] Vira Nur MD Unavailable Gadiel Tripp Unavailable [phone] Wilfred Maynard MD Unavailable [phone] Leslie Coello RN Unavailable [email or web address] Scott Hooper Unavailable [phone] Gadiel Tripp Primary Care Provider + Chanel Whitt NP Unavailable Encounter Details Date Type Department Care Team (Late st Contact Info) Description 08/03/[address] [facility] [place] Hematology Oncology Clinic at [facility] [address] [place] [address] Chanel Whitt, LUCERO [address] [place], [place] [id number] [email or web address] Social History Tobacco Use Types Packs/Day Years [...] got money to buy more. Never True 05/30/2025 Within the past 6 months the food we bought just didn't last and we didn't have enough money to get more. Never True Residential Stability Answer Date Recor ded What is your housing situation today? I have yaniv martin 05/30/2025 How many times have you move d in the past 12 months? Zero (I did not move) 05/30/2025 Paying for Meds Answer Date Recorded Do you have trouble paying for medicines? No 05/30/2025 Paying Utility Bills Answer Date Record ed Do you have trouble paying your heating or elect ricity bill? No 05/30/2025 Transportation Answer Date Recorded Has the lack of transportati on kept you from medical appointments or from getting medications? No 05/30/2025 Digital Access Answer Date Recorded Yes 05/30/2025 No 05/30/2025 Do you have reliable internet access at home? No 05/30/2025 Do you have a device (e.g., phone, tablet, computer) with a working camera? No 05/30/2025 Intimate Partner Violence Answer Date R ecorded Are you denied basic needs s uch as food, clothing, or medical care? No 05/30/2025 In the past 12 months have y ou been in a relationship with a person who hurts, threatens, or tries to control you? No 05/30/2025 Are you denied basic needs s uch as food, clothing, or medical care? No 05/30/2025 In the past 12 months have y ou been in a relationship with a person who hurts, threatens, or tries to control you? No 05/30/2025 Sex and Gender Information Value Date Recorded [...] 2:20 PM EST Office Visit [facility] Hematology Oncology Clinic at [address] [address] Scott Hooper MBBS [address] [place] [phone] [email or web address] 09/13/2025 2:40 PM EST Nutrition [facility] Hematology Oncology Clinic at [address] [address] Scott Hooper MBBS [address] [place] [address] [email or web address] 09/25/2025 10:30 AM EST Office Visit [facility] Gastroenterology Clinic [address] [place] [address] Jenn Dang PA-C [address] [place] [phone] documented as of this encounter Visit Diagnoses Not on filedocumented in this encounter Care Teams Associate Trainer Relationship Specialty Start Date End Date Gadiel Tripp PA [address] [place] [address] PCP - General Physician Caisson Worker 12/19/24 Wilfred Maynard MD [address] [place] [address] [place] [address] Referring Physician Internal Medicine 11/19/15 Vira Nur MD [address] [place] [address] [address] [place] [address] [email or web address] Medical Oncology 04/16/23 [place] [address] [place] [address] Physician Caisson Worker 04/16/23 Wilfred Maynard MD [address] [place] [address] [place] [address] Referring Physician Medical Oncology 04/16/23 Leslie Coello, FLAKITO [address] [place] [address] [email or web address] Primary Infusion Nurse 02/22/24 Scott Hooper MBBS [address] [place] [address] [email or web address] Medical Oncology 03/01/24 Chanel Whitt NP [address] [place] [address] [email or web address] Nurse Practitioner Nurse Practitioner 06/01/25 documented as of this encounter Additional Source Comments The information contained in this document represents components of the legal health record. It is not the complete legal health record.[facility]
--- OUTSIDE RECORDS SUMMARY | 2025-08-21 11:28 | XMS_ITS | Encounter Summary ---
Author Organization [facility] Address [address] [place] [address] [address] [place] [address] Phone Care Team Providers Care Manager Employee Relations Name Role Phone Wilfred Maynard MD Unavailable [phone] Vira Nur MD Unavailable [phone] Gadiel Tripp Unavailable [phone] Wilfred Maynard MD Unavailable [phone] Leslie Coello RN Unavailable Leslie [email or web address] Scott HooperBS Unavailable [phone] Gadiel Tripp Primary Care Provider + Chanel Whitt NP Unavailable [phone] Encounter Details Date Type Department Care Team (Late st Contact Info) Description 02/14/2025 Procedure Pass [facility] [address] [place] [address] Social History Tobacco Use Types Packs/Day Years [...] Description 09/13/2025 2:20 PM EST Office Visit [facility] Hematology Oncology Clinic at [address] [address] [address] [address] [email or web address] 09/13/2025 2:40 PM EST Nutrition [facility] Hematology Oncology Clinic at [address] [address] [address] [address] [email or web address] 09/25/2025 10:30 AM EST Office Visit [facility] Gastroenterology Clinic [address] [place] [address] Jenn Dang PA-C [address] [address] documented as of this encounter Visit Diagnoses Not on filedocumented in this encounter Care Teams Manager Employee Relations Relationship Specialty Start Date End Date Gadiel Tripp PA [address] [place] [address] PCP - General Physician Motor Man 12/19/24 Wilfred Maynard MD [address] [place] [address] [place] [address] Referring Physician Internal Medicine 11/19/15 Vira Nur MD [address] [place] [address] [email or web address] Medical [email or web address] 04/16/23 [place] [address] [place] [address] Physician Motor Man 04/16/23 Wilfred Maynard MD [address] [place] [address] [place] [address] Referring Physician Medical Oncology 04/16/23 Leslie Coello, RN [address] [place] [address] [email or web address] Primary Infusion Nurse 02/22/24 Scott Hooper MBBS [address] [place] [address] [email or web address] 03/01/24 Chanel Whitt NP [address] [place] [address] [email or web address] Nurse Practitioner Nurse Practitioner 06/01/25 documented as of this encounter Additional Source Comments The information contained in this document represents components of the legal health record. It is not the complete legal health record.[facility]
--- OUTSIDE RECORDS SUMMARY | 2025-08-21 11:28 | XMS_ITS | Clinical Summary ---
Author Organization [facility] Address [address] [place] [address] [address] [place] [address] Phone Care Team Providers Care Lockstitch Sleeve Maker Name Role Phone Wilfred Maynard MD Unavailable [phone] Vira Nur MD Unavailable [phone] Gadiel Tripp Unavailable [phone] Wilfred Mayanrd MD Unavailable [phone] Leslie Coello RN Unavailable [email or web address] Scott HooperBS Unavailable [phone] Gadiel Tripp Primary Care Provider + Chanel Whitt NP Unavailable [phone] Allergies No known active allergies Medications escitalopram oxalate (LEXAPRO) 20 MG tablet Take 20 mg by mouth daily. Active cholecalciferol (VITAMIN D3) 25 MCG (1,000 unit) tablet Take 1,000 Units by mouth daily. Active lidocaine 4 % Place 2 patches onto the skin daily. 02/14/20 25 Active docusate sodium (COLACE) 100 MG capsuleIndications :constipation Take 200 mg by mouth 2 (two) times a day as needed. Indications: constipation Active omeprazole (PRILOSEC) 40 MG capsule Take 40 mg by mouth daily. Active bisacodyl (DULCOLAX) [address] 1 suppository (10 mg total) rectally daily as needed (constipation). 02/24/20 Active polyethylene glycol (MIRALAX) 17 gram packet Take 17 g by mouth 2 (two) times a day. 02/24/20 25 Active Additional Information Patient not taking.Reported on 08/08/2025 diphenhydramine-li haegmuw-bphx-ljc-s imethicone (MAGIC MOUTHWASH-BLM) [phone] mg/30mL suspension Swish and swallow 10 mL 4 (four) times a day as needed (esophageal irritiation). 02/24/20 Active darolutamide (NUBEQA) 300 mg tabletIndications: Malignant neoplasm of prostate Take 2 tablets (600 mg total) by mouth 2 (two) times a day. Follow instructions given by provider. 120 tablet 10 04/26/20 25 Active Additional Information Patient not taking.Reported on 08/08/2025 senna (SENOKOT) 8.6 mg tabletIndications: Other constipation Take 2 tablets by mouth nightly at bedtime as needed for constipation. 60 tablet 6 04/26/20 Active lactulose (CONSTULOSE) 10 gram/15 mL solutionIndication s:Other constipation Take 15 mL (10 g total) by mouth 2 (two) times a day as needed (constipation). 4723 mL 1 04/26/20 25 Active Additional Information Patient not taking.Reported on 08/08/2025 prochlorperazine (COMPAZINE) 10 MG tablet Take 1 tablet (10 mg total) by mouth every 6 (six) hours as needed (nausea). 30 tablet 3 07/02/20 25 Active ondansetron (ZOFRAN-ODT) 4 MG disintegrating tablet Take 1 tablet (4 mg total) by mouth every 8 (eight) hours as needed for nausea. 90 tablet 1 08/07/20 25 Active dexAMETHasone (DECADRON) 2 MG tablet Take 1 tablet (2 mg total) by mouth daily with breakfast. 14 tablet 08/07/20 25 Active mirtazapine (REMERON) 7.5 MG tablet Take 1 tablet (7.5 mg total) by mouth nightly at bedtime. 30 tablet 08/15/20 25 Active fentaNYL (DURAGESIC) 75 mcg/hr Place 1 patch onto the skin every third day. CancerPain-part ial fill ok 5 patch 08/17/20 25 Active oxyCODONE HCl 10 mg TabIndications:Mal ignant neoplasm of prostate Take 1-2 tabs (10-20 mg) po q 4-6 hours prn pain, nte 6 tabs/day. CancerPain-part ial fill ok 84 tablet 08/17/20 25 Active ondansetron (ZOFRAN-ODT) 4 MG disintegrating tablet Take 1 tablet (4 mg total) by mouth every 8 (eight) hours as needed for nausea. 90 tablet 1 05/18/20 25 025 Discontin ued(Reord er) 0.9 % sodium chloride (SODIUM CHLORIDE 0.9% BOLUS) bolusIndications:M alignant neoplasm of prostate Inject 1,000 mL into the vein as needed (dehydration). 1000 mL 05/29/20 25 025 Discontin ued(No longer taking) fentaNYL (DURAGESIC) 75 mcg/hr Place 1 patch onto the skin every third day. CancerPain-part ial fill ok 5 patch 07/18/20 25 025 Discontin ued(Reord er) oxyCODONE HCl 10 mg TabIndications:Mal ignant neoplasm of prostate Take 1-2 tabs (10-20 mg) po q 4-6 hours prn pain, nte 6 tabs/day. CancerPain-part ial fill ok 84 tablet 07/18/20 25 025 Discontin ued(Reord er) fentaNYL (DURAGESIC) 75 mcg/hr Place 1 patch onto the skin every third day. CancerPain-part ial fill ok 5 patch 08/07/20 25 025 Discontin ued(Reord er) oxyCODONE HCl 10 mg TabIndications:Mal ignant neoplasm of prostate Take 1-2 tabs (10-20 mg) po q 4-6 hours prn pain, nte 6 tabs/day. CancerPain-part ial fill ok 84 tablet 08/07/20 25 025 Discontin ued(Reord er) Active Problems Problem Noted [...] for TPN or catheter placement. -GI for EGD/[place] per oncology -Continue monitoring electrolytes. -Antiemetics as [...] for TPN or catheter placement. -GI for EGD/[place] per oncology -Continue monitoring electrolytes. -Antiemetics as [...] for TPN or catheter placement. -GI for EGD/[place] per oncology -Continue monitoring electrolytes. -Antiemetics as [...] 10 mg q4hrs PRN (home med). On [facility] transfer, pt reported minimal improvement w/ above [...] 10 mg q4hrs PRN (home med). On [facility] transfer, pt reported minimal improvement w/ above [...] 10 mg q4hrs PRN (home med). On [facility] transfer, pt reports minimal improvement w/ above [...] 10 mg q4hrs PRN (home med). On [facility] transfer, pt reports minimal improvement w/ above [...] 10 mg q4hrs PRN (home med). On [facility] transfer, pt reports minimal improvement w/ above [...] 10 mg q4hrs PRN (home med). On [facility] transfer, pt reports minimal improvement w/ above [...] 10 mg q4hrs PRN (home med). On [facility] transfer, pt reports minimal improvement w/ above [...] Ongoing pain control issue, most recently saw [facility] outpatient 01/16. Was planned to [...] for TPN or catheter placement. -GI for EGD/[place] per oncology -Continue monitoring electrolytes. -Antiemetics as [...] Fuller. Recommend radiosurgery [facility] at [facility] with dedicated specialist. 02/10: started on [...] scheduled, patient may decline dose -transfer to [facility] requested; patient accepted by Dr Vira [...] Fuller. Recommend radiosurgery to the spine at [facility] with dedicated specialist. Dr. Hooper coordinating [...] Fuller. Recommend radiosurgery to the spine at [facility] with dedicated specialist. Dr. Hooper coordinating [...] Fuller. Recommend radiosurgery to the spine at [facility] with dedicated specialist. Dr. Hooper coordinating [...] Fuller. Recommend radiosurgery to the spine at [facility] with dedicated specialist. Dr. Hooper coordinating [...] for TPN or catheter placement. -GI for EGD/[place] per oncology -Continue monitoring electrolytes. -Antiemetics as [...] for TPN or catheter placement. -GI for EGD/[place] per oncology -Continue monitoring electrolytes. -Antiemetics as [...] guidance 02/09. Unfortunately, PPN not offered at [facility]. Improvement of symptoms s/p BM, patient planned [...] guidance 02/09. Unfortunately, PPN not offered at [facility]. Improvement of symptoms s/p BM, patient planned [...] guidance 02/09. Unfortunately, PPN not offered at [facility]. Improvement of symptoms s/p BM, patient planned [...] guidance 02/09. Unfortunately, PPN not offered at [facility]. Improvement of symptoms s/p BM, patient planned [...] guidance 02/09. Unfortunately, PPN not offered at [facility]. Improvement of symptoms s/p BM, patient planned [...] guidance 02/09. Unfortunately, PPN not offered at [facility]. Improvement of symptoms s/p BM, patient planned [...] guidance 02/09. Unfortunately, PPN not offered at [facility]. Improvement of symptoms s/p BM, patient planned [...] guidance 02/09. Unfortunately, PPN not offered at [facility]. Improvement of symptoms s/p BM, patient planned [...] guidance 02/09. Unfortunately, PPN not offered at [facility]. - Appreciate Nutrition consult - Encourage PO [...] mets 2005: Initial diagnosis of prostate cancer, [place] score 7, s/p radical prostatectomy - followed [...] in the clinic He is following with welt butter hand Follow-up/restaging scans in August of next year [...] a week in the clinic-is following with welt butter hand in this regard. He has been on [...] in the clinic He is following with welt butter hand Advised him to go to the ER [...] to not taking Darolutamide for several months ALUMINUM SIDING APPLICATOR given poor appetite/poor PO intake and was [...] rib. Primary Onc: Dr. Vira Valencia ([facility])/Local Oncologst: Dr. Maynard ([facility]); Outpatient Rad Onc: Dr Zhang - [...] to not taking Darolutamide for several months ALUMINUM SIDING APPLICATOR given poor appetite/poor PO intake and was [...] rib. Primary Onc: Dr. Vira Valencia ([facility])/Local Oncologst: Dr. Maynard ([facility]); Outpatient Rad Onc: Dr Zhang - [...] to not taking Darolutamide for several months ALUMINUM SIDING APPLICATOR given poor appetite/poor PO intake and was [...] rib. Primary Onc: Dr. Vira Valencia ([facility])/Local Oncologst: Dr. Maynard ([facility]); Outpatient Rad Onc: Dr Zhang - Onc plan per primary onc team: updated 02/20 - Appreciate SW involvement for adjustment to illness - Resume home Darolutamide when tolerating PO (if Dr. Valecnia recommends this, updated 02/20) - Continue home [...] to not taking Darolutamide for several months ALUMINUM SIDING APPLICATOR given poor appetite/poor PO intake and was [...] rib. Primary Onc: Dr. Vira Valencia ([facility])/Local Oncologst: Dr. Maynard ([facility]); Outpatient Rad Onc: Dr Zhang - [...] to not taking Darolutamide for several months ALUMINUM SIDING APPLICATOR given poor appetite/poor PO intake and was [...] rib. Primary Onc: Dr. Vira Valencia ([facility])/Local Oncologst: Dr. Maynard ([facility]); Outpatient Rad Onc: Dr Zhang - [...] to not taking Darolutamide for several months ALUMINUM SIDING APPLICATOR given poor appetite/poor PO intake and was told he is supposed to take this with food). Course c/b worsening #cancer pain, MRI entire spine 02/15 shows bony mets T5-9 w/ minimally increased paraspinal component w/ epidural disease, but no cord compression. Restaging CTCAP 02/15 w/o evidence of metastatic disease in chest or abd/pelvis. Primary Onc: Dr. Vira Valencia ([facility])/Local Oncologst: Dr. Maynard ([facility]); Outpatient Rad Onc: Dr Zhang - [...] to not taking Darolutamide for several months ALUMINUM SIDING APPLICATOR given poor appetite/poor PO intake and was told he is supposed to take this with food). Course c/b worsening #cancer pain, MRI entire spine 02/15 shows bony mets T5-9 w/ minimally increased paraspinal component w/ epidural disease, but no cord compression. Restaging CTCAP 02/15 w/o evidence of metastatic disease in chest or abd/pelvis. Primary Onc: Dr. Vira Valencia ([facility])/Local Oncologst: Dr. Maynard ([facility]); Outpatient Rad Onc: Dr Zhang - [...] Dr. Vira Valencia/ Local Oncologst: Dr. Maynard ([facility]) - Onc plan per primary onc [...] Dr. Vira Valencia/ Local Oncologst: Dr. Maynard ([facility]) - Onc plan per primary onc [...] control. I have reached out to the [place] team. Patient is sent to the ER for pain management, palliative care consultation and hydration. RECOMMENDATIONS: Patient is sent to the ER and I have called and discussed the case with the triage nurse Patient needs hospitalization for Pain management and IV hydration I would recommend palliative care consultation and radiation oncology consultation Will discuss [place] team to see if patient needs to be transferred to [facility] for further management in this regard Thank you very much for allowing to participate in this patient's care Assessment & Plan (12/15/2024 1:05 PM EDT): IMPRESSION: This is a 69-year-old man with the following diagnosis: Prostate adenocarcinoma, stage IV, skeletal mets 2005: Initial diagnosis of prostate cancer, [place] score 7, s/p radical prostatectomy Subsequently received [...] He will maintain close follow-up with his [facility] team Return for follow-up in after the above-mentioned Thank you very much for allowing to participate in this patient's care Assessment & Plan (07/20/2024 10:02 AM EST): IMPRESSION: This is a 69-year-old man with the following diagnosis: Prostate adenocarcinoma, stage IV, skeletal mets 2005: Initial diagnosis of prostate cancer, [place] score 7, s/p radical prostatectomy Subsequently received [...] and Taxotere chemotherapy. I reviewed records from [facility]. He was seen by neurosurgery and no [...] He will maintain close follow-up with his [facility] team Return for follow-up in 6 weeks with labs Thank you very much for allowing to participate in this patient's care Assessment & Plan (06/30/2024 12:52 PM EDT): IMPRESSION: This is a 68-year-old man with the following diagnosis: Prostate adenocarcinoma, stage IV, skeletal mets 2005: Initial diagnosis of prostate cancer, [place] score 7, s/p radical prostatectomy Subsequently received [...] and Taxotere chemotherapy. I reviewed records from [facility]. He was seen by neurosurgery and no [...] He will maintain close follow-up with his [facility] team Return for follow-up in 3 weeks Thank you very much for allowing to participate in this patient's care Assessment & Plan (05/21/2024 2:06 PM EDT): IMPRESSION: This is a 68-year-old man with the following diagnosis: Prostate adenocarcinoma, stage IV, skeletal mets 2005: Initial diagnosis of prostate cancer, [place] score 7, s/p radical prostatectomy Subsequently received [...] and Taxotere chemotherapy. I reviewed records from [facility]. He was seen by neurosurgery and no [...] He will maintain close follow-up with his [facility] team Return for follow-up in 3 weeks Thank you very much for allowing to participate in this patient's care Assessment & Plan (04/06/2024 11:14 AM EDT): IMPRESSION: This is a 68-year-old man with the following diagnosis: Prostate adenocarcinoma, stage IV, skeletal mets 2005: Initial diagnosis of prostate cancer, [place] score 7, s/p radical prostatectomy Subsequently received [...] and Taxotere chemotherapy. I reviewed records from [facility]. He was seen by neurosurgery and no [...] He will maintain close follow-up with his [facility] team Return for follow-up in 3 weeks Thank you very much for allowing to participate in this patient's care Assessment & Plan (03/16/2024 2:01 PM EDT): IMPRESSION: This is a 68-year-old man with the following diagnosis: Prostate adenocarcinoma, stage IV, skeletal mets 2006: Initial diagnosis of prostate cancer, [place] score 7, s/p radical prostatectomy Subsequently received [...] chemotherapy. I reviewed all his records from [facility]. I agree with recommendations by Dr. Nur. [...] chemo teaching Patient will meet with our elementary school social worker and welt butter hand He is scheduled to undergo a PSMA PET scan and an MRI Return for follow-up on C1D1 of chemotherapy Thank you very much for allowing to participate in this patient's care Encounters Date Type Department Care Team Description 5 Telephone [facility] Hematology Oncology Clinic at [address] [address] Scott Hooper MBBS dressing change order 5 Refill [facility] Hemat[facility] Oncology Clinic at [address] [address] Kati Weiner, item processor Refill 5 Refill [facility] Hematology Oncology Clinic at [address] [address] Kati Weiner, item processor Refill 5 Procedure Pass [facility], Ct Scan - [address] [id number] 5 Procedure Pass [facility] Cardiovascular And Interventional Radiology [address] [place] [id number] 5 Orders Only [facility] [address] [place] [address] [phone] [facility] 5 4:35 PM EST - 5 5:30 PM EST Surgery [facility] Interventional Radiology [address] [place] [id number] Kenrick Bills MD PICC LINE INSERTION IR 5 1:26 PM EST Anesthesia Event [facility] Endoscopy Admitting Dept Virtual Department [address] [place] [phone] Nadia Patel MD 5 12:50 PM EST - 5 1:19 PM EST Surgery [facility] Endoscopy Admitting Dept Virtual Department [address] [place] [id number] Nadia Fan MD ESOPHAGOGASTRODUODENOSCOPY 5 Procedure Pass [facility] Endoscopy Admitting Dept Virtual Department [address] [place] [id number] 5 Procedure Pass [facility] Cardiovascular [facility] Interventional Radiology [address] [place] [id number] 5 Orders Only [facility] Hematology Oncology Clinic at [address] [address] Chanel Whitt NP 5 2:43 PM EST - 5 1:04 PM EST Hospital Encounter [facility] [address] [id number] Sandeep Henderson MD Arepally, Sandeep, MD Lu, Amanda J, MD, PhD Discharge Disposition: Home or Self Care 5 Procedure Pass [facility], Ct Scan - [address] [address] 5 Orders Only [facility] Hematology Oncology Clinic at [address] [address] Chanel Whitt NP 5 3:00 PM EST Office Visit [facility] [address] [place] [phone] Dayton Granados MD Palliative care encounter (Primary Dx); Cancer related pain; Use of opiates for therapeutic purposes; Nausea and vomiting, unspecified vomiting type; Malignant neoplasm of prostate 5 2:00 PM EST Nutrition [facility] Hematology Oncology Clinic at [address] [address] Scott Hooper MBBS 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) 5 2:00 PM EST Infusion [facility] Infusion Center [address] [place] [id number] HooperScott iniguez MBBS Bang, Samantha J, RN Dehydration (Primary Dx); Malignant neoplasm of prostate; Prostate cancer 5 1:00 PM EST Office Visit [facility] Hematology Oncology Clinic at [address] [address] Chanel Whitt, LUCERO Malignant neoplasm of prostate 5 Telephone [facility] Hematology Oncology Clinic at [address] [address] Chanel Whitt, LUCERO PET CT 5 Orders Only [facility] Hematology Oncology Clinic at [address] [address] Chanel Whitt, LUCERO Malignant neoplasm of prostate (Primary Dx); Dysuria 5 Orders Only [facility] Hematology Oncology Clinic at [address] [address] Chanel Whitt, LUCERO 5 2:20 PM EST Nutrition [facility] Hematology Oncology Clinic at [address] [address] Daniel Arauz MD 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) 5 2:00 PM EST Infusion [facility] Infusion [facility] [address] [place] [phone] Daniel Arauz MD Markworth, Sharon, FLAKITO Dehydration (Primary Dx); Malignant neoplasm of prostate; Prostate cancer 5 2:00 PM EST Infusion [facility] [address] [place] [address] Scott Hooper, Jessa Gallegos RN Dehydration (Primary Dx); Malignant neoplasm of prostate; Prostate cancer 5 Refill [facility] Hematology Oncology Clinic at [address] [address] Kati Weiner, item processor Refill 5 10:40 AM EST Infusion [facility] [address] [place] [address] Scott Hooper MBBS Bang, Samantha J, RN Dehydration (Primary Dx); Malignant neoplasm of prostate; Prostate cancer 5 9:45 AM EST Office Visit [facility] [address] [place] [address] Dayton Granados MD Palliative care encounter (Primary Dx); Cancer related pain; Use of opiates for therapeutic purposes; Malignant neoplasm of prostate 5 9:20 AM EST Office Visit [facility] Hematology Oncology Clinic at [address] [address] Scott Hooper MBBS Malignant neoplasm of prostate (Primary Dx); Secondary cancer of bone; Prostate cancer metastatic to bone; Anemia in other chronic diseases classified elsewhere; Weight loss; Cancer related pain; Pulmonary nodule 5 Refill [facility] Hematology Oncology Clinic at [address] [address] Kati Weiner, item processor Refill 5 3:00 PM EST Office Visit [facility] [address] [place] [address] Dayton Granados MD Palliative care encounter (Primary Dx); Cancer related pain; Use of opiates for therapeutic purposes; Prostate cancer metastatic to bone 5 2:00 PM EST Infusion [facility] Infusion [facility] [address] [place] [address] Scott Hooper MBBS Howard, Tajana, RN Dehydration (Primary Dx); Malignant neoplasm of prostate; Prostate cancer 5 Telephone [facility] Hematology Oncology Clinic at [address] [address] Kati Weiner RN 5 1:40 PM EST Nutrition [facility] Hematology Oncology Clinic at [address] [address] Scott Hooper MBBS 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) 5 1:20 PM EST Infusion [facility]fusion [facility] [address] [place] [address] Scott Hooper MBBS Bang, Samantha J, RN Dehydration (Primary Dx); Malignant neoplasm of prostate; Prostate cancer 5 Orders Only [facility] Hematology Oncology Clinic at [address] [address] Chanel Whitt, LUCERO 5 Orders Only [facility] Hematology Oncology Clinic at [address] [address] Chanel Whitt, LUCERO 5 Orders Only [facility]emat[facility] Oncology Clinic at [address] [address] [place] Malignant neoplasm of prostate (Primary Dx) 5 Refill [facility] Hematology Oncology Clinic at [address] [address] Scott Hooper MBBS Medication Refill 5 1:20 PM EDT Infusion [facility] Infusion [facility] [address] [place] [address] Scott Hooper MBBS Clark, Hanna Louise, FLAKITO Dehydration (Primary Dx); Malignant neoplasm of prostate; Prostate cancer 5 Refill [facility] Hematology Oncology Clinic at [address] [address] Kati Weiner, item processor Refill 5 Orders Only [facility] Hematology Oncology Clinic at [address] [address] Chanel Whitt, LUCERO 5 Orders Only [facility] Hematology Oncology Clinic at [address] [address] Scott Hooper MBBS Malignant neoplasm of prostate (Primary Dx) 5 Telephone [facility] Hematology Oncology Clinic at [address] [address] Scott Hooper MBBS Hydration () 5 Telephone [facility] Hematology Oncology Clinic at [address] [address] Jessa Balderas, RN 5 Refill [facility] Hematology Oncology Clinic at [address] [address] Kati Weiner, item processor Refill 5 Telephone [facility] Hematology Oncology Clinic at [address] [address] Scott Hooper MBBS 5 Telephone [facility] Hematology Oncology Clinic at [address] [address] Scott Hooper MBBS canceled same day apt 5 8:40 AM EDT Infusion [facility] [address] [place] [id number] Scott Hooper MBBS Zononi, Karen, FLAKITO Dehydration (Primary Dx); Malignant neoplasm of prostate; Prostate cancer 5 Orders Only [facility] at [address] [address] Natalee Weeks CMA 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) 5 Orders Only [facility] at [address] [address] Chanel Whitt, LUCERO 5 4:25 PM EDT - 5 11:30 PM EDT Emergency [facility] Emergency [address] [place] [id number] Discharge Disposition: Home or Self Care 5 2:00 PM EDT Infusion [facility] [address] [place] [id number] Scott Hooper MBBS Romero Losada, Martha Katherine, FLAKITO Dehydration (Primary Dx); Malignant neoplasm of prostate; Prostate cancer 5 9:30 AM EDT Office Visit [facility] at [address] [address] Chanel Whitt NP Dehydration (Primary Dx); Prostate cancer metastatic to bone; Abdominal pain, unspecified abdominal location 5 Procedure Pass [facility], Ct Scan - [address] [address] 5 Orders Only [facility] at [address] [address] Chanel Whitt NP Dehydration (Primary Dx); Malignant neoplasm of prostate 5 Orders Only [facility] at [address] [address] Chanel Whitt NP Dehydration (Primary Dx) 5 3:20 PM EDT Nutrition [facility] at [address] [address] Scott Hooper MBBS 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) 5 2:30 PM EDT Office Visit [facility] at [address] [address] Scott Hooper MBBS Malignant neoplasm of prostate (Primary Dx); Secondary cancer of bone; Weight loss; Anemia in other chronic diseases classified elsewhere 5 2:11 PM EDT - 5 11:59 PM EDT Hospital Encounter [facility] Main [address] [place] [phone] Scott Hooper MBBS Discharge Disposition: Home or Self Care 5 Orders Only [facility] at [address] [address] Fany Alas, RN Malignant neoplasm of prostate (Primary Dx) 5 Refill [facility] at [address] [address] Kati Weiner RN Medication Refill from Last 3 Months Immunizations Immunization Administration [...] Sign Reading Time Taken Comments Blood Pressure 165/89 08/15/2025 7:00 AM EST Pulse 71 08/15/2025 7:00 AM EST Temperature 36.5 C (97.7 F) 08/15/2025 7:00 AM EST Respiratory Rate 18 08/15/2025 7:00 AM EST Oxygen Saturation 96% 08/15/2025 7:00 AM EST Inhaled Oxygen Concentration - - Weight 62.1 kg (136 lb 14.4 oz) 08/15/2025 5:30 AM EST Height 193 cm (6' 3.98 ) 08/08/2025 11: 00 PM EST Body Mass Index 16.67 08/08/2025 11:00 PM EST Plan of Treatment Upcoming Encounters Date Type Department Care Team (Late st Contact Info) Description 09/13/2025 2:20 PM EST Office Visit [facility] at [address] [address] Scott Hooper [address] [phone] [email or web address] 09/13/2025 2:40 PM EST Nutrition [facility] at [address] [address] Scott Hooper [address] [address] [email or web address] 09/25/2025 10:30 AM EST Office Visit [facility] [address] [place] [phone] Jenn Dang PA-C [address] [place] [phone] [email or web address] Health Maintenance Due Date Last Done Comments LIPID PANEL 1955 DEPRESSION SCREENING 1967 HEPATITIS C SCREENING 1973 COLOGUARD 2000 COLONOSCOPY 2000 COLORECTAL CANCER SCREENING 2000 FIT TEST 2000 FOBT 2000 SIGMOIDOSCOPY 2000 VIRTUAL COLONOSCOPY 2000 RSV VACCINE (1 - Risk 50-74 years 1-dose series) 2005 ZOSTER VACCINES (1 of 2) 09/04/2015 07/10/2015 PNEUMOCOCCAL VACCINES (50+ years) (2 of 2 - PCV) 10/26/2019 10/26/2018 INFLUENZA VACCINE (#1) 2025 , 08/26/2023, 06/23/2022, Additional history exists COVID-19 VACCINE ( - 2024- season) 2025 BLOOD PRESSURE 02/04/2026 08/06/2025 Adult Td,Tdap Booster 04/22/2028 04/22/2018 SMOKING STATUS SCREENING (Once After 26 Yrs) Completed 08/08/2025 HEPATITIS A VACCINES Aged Out No long [...] Procedure Name Priority Date/Time Associated Diagnosis Comments LAB ADD-ON STAT 08/15/2025 8:15 AM EST PHOSPHORUS Routine 08/15/2025 6:22 AM EST LFTS (HEPATIC PANEL) Routine 08/15/2025 6:22 AM EST CBC Routine 08/15/2025 6:22 AM EST MAGNESIUM Routine 08/15/2025 6:22 AM EST BASIC METABOLIC PANEL (BMP) Routine 07/30 6:[address] HEAD WITH AND WITHOUT CONTRAST Routine 08/14/2025 11:39 AM EST TRIGLYCERIDES Routine 08/14/2025 6:11 AM EST BASIC METABOLIC PANEL (BMP) Routine 07/30 6:11 AM EST MAGNESIUM Routine 08/14/2025 6:11 AM EST PHOSPHORUS Routine 08/14/2025 6:11 AM EST CBC Routine 08/13/2025 5:57 AM EST PHOSPHORUS Routine 08/13/2025 5:57 AM EST MAGNESIUM Routine 08/13/2025 5:57 AM EST BASIC METABOLIC PANEL (BMP) Routine 07/30 5:57 AM EST TRIGLYCERIDES Routine 08/12/2025 5:39 AM EST COMPREHENSIVE METABOLIC PANE L (CMP) Routine 08/12/2025 5:39 AM EST MAGNESIUM Routine 08/12/2025 5:39 AM EST PHOSPHORUS Routine 08/12/2025 5:39 AM EST PHOSPHORUS Routine 08/11/2025 6:22 AM EST MAGNESIUM Routine 08/11/2025 6:22 AM EST BASIC METABOLIC PANEL (BMP) Routine 07/30 6:22 AM EST PICC LINE INSERTION (IR) Routine 025 4:51 PM EST Cancer cachexia TISSUE EXAM Routine 08/10/2025 1:33 PM EST ESOPHAGOGASTRODUODENOSCOPY 08/10 1:27 PM EST See H&P ENDOSCOPY PROCEDURE 08/10/2025 1:19 PM EST TRIGLYCERIDES Routine 08/10/2025 5:28 AM EST PHOSPHORUS Routine 08/10/2025 5:28 AM EST CBC Routine 08/10/2025 5:28 AM EST MAGNESIUM Routine 08/10/2025 5:28 AM EST BASIC METABOLIC PANEL (BMP) Routine 07/30 5:28 AM EST PT-INR Routine 08/09/2025 5:35 AM EST CBC Routine 08/09/2025 5:35 AM EST PHOSPHORUS Routine 08/09/2025 5:35 AM EST MAGNESIUM Routine 08/09/2025 5:35 AM EST COMPREHENSIVE METABOLIC PANE L (CMP) Routine 08/09/2025 5:[address] ABDOMEN/PELVIS WITH CONTRAST Routine 08/08/2025 5:47 PM EST ECG 12-LEAD STAT 08/08/2025 3:19 PM EST CBC AND DIFFERENTIAL STAT 08/08/2025 3:08 PM EST LACTATE (BLOOD GAS) STAT 08/08/2025 3:08 PM EST PHOSPHORUS STAT 08/08/2025 3:08 PM EST MAGNESIUM STAT 08/08/2025 3:08 PM EST LFTS (HEPATIC PANEL) STAT 08/08/2025 3:08 PM EST BASIC METABOLIC PANEL (BMP) STAT 07/30 3:08 PM EST CBC AND DIFFERENTIAL STAT 08/08/2025 3:08 PM EST URINE SEDIMENT Routine 08/06/2025 1:48 PM EST Malignant neoplasm of prostate Dysuria URINALYSIS WITH REFLEX TO UR INE CULTURE Routine 08/06/2025 1:48 PM EST Malignant neoplasm of prostate Dysuria LAB ADD-ON Routine 08/06/2025 1:40 PM EST Malignant neoplasm of prostate MAGNESIUM Routine 08/06/2025 11:54 AM EST Malignant neoplasm of prostate CBC AND DIFFERENTIAL Routine 08/06/2025 11:54 AM EST Prostate cancer metastatic to bone 25-[place] VITAMIN D Routine 08/06/2025 11:54 AM EST Malignant neoplasm of prostate PSA DIAGNOSTIC (MONITORING) Routine 03/2025 11:54 AM EST Malignant neoplasm of prostate COMPREHENSIVE METABOLIC PANE L (CMP) Routine 08/06/2025 11:54 AM EST Prostate cancer metastatic to bone CBC AND DIFFERENTIAL Routine 08/06/2025 11:54 AM EST Prostate cancer metastatic to bone PSA DIAGNOSTIC (MONITORING) Routine 06/30 10:54 AM EST Malignant neoplasm of prostate LAB ADD-ON Routine 07/09/2025 9:28 AM EST Malignant neoplasm of prostate PSA DIAGNOSTIC (MONITORING) Routine 06/30 8:28 AM EST Malignant neoplasm of prostate CBC AND DIFFERENTIAL Routine 07/09/2025 8:28 AM EST Malignant neoplasm of prostate COMPREHENSIVE METABOLIC PANE L (CMP) Routine 07/09/2025 8:28 AM EST Malignant neoplasm of prostate CBC AND DIFFERENTIAL Routine 07/09/2025 8:28 AM EST Malignant neoplasm of prostate TROPONIN STAT 05/30/2025 6:[address] ABDOMEN/PELVIS WITH CONTRAST Routine 05/30/2025 6:48 PM EDT URINALYSIS WITH REFLEX TO UR INE CULTURE STAT 05/30/2025 6:12 PM EDT ECG 12-LEAD STAT 05/30/2025 5:54 PM EDT TROPONIN STAT 05/30/2025 5:54 PM EDT LIPASE STAT 05/30/2025 5:54 PM EDT PHOSPHORUS STAT 05/30/2025 5:54 PM EDT MAGNESIUM STAT 05/30/2025 5:54 PM EDT LFTS (HEPATIC PANEL) STAT 05/30/2025 5:54 PM EDT BASIC METABOLIC PANEL (BMP) STAT 08/2024 5:54 PM EDT CBC AND DIFFERENTIAL STAT 05/30/2025 5:54 PM EDT CBC AND DIFFERENTIAL Routine 05/30/2025 2:24 PM EDT Dehydration Malignant neoplasm of prostate COMPREHENSIVE METABOLIC PANE L (CMP) Routine 05/30/2025 2:24 PM EDT Dehydration Malignant neoplasm of prostate MAGNESIUM Routine 05/30/2025 2:24 PM EDT Dehydration Malignant neoplasm of prostate PHOSPHORUS Routine 05/30/2025 2:24 PM EDT Dehydration Malignant neoplasm of prostate CBC AND DIFFERENTIAL Routine 05/28/2025 2:27 PM EDT Malignant neoplasm of prostate COMPREHENSIVE METABOLIC PANE L (CMP) Routine 05/28/2025 2:27 PM EDT Malignant neoplasm of prostate from Last 3 Months Results * Lab Add-On (08/15/2025 8:15 AM EST) Only the most recent of3 resultswithin the time period is included. Specimen Date/Time 08/15/2025 8:24 AM [facility] Test Requested phosphorus 08/15/2025 8:24 AM [facility] Specimen Description 08/15/2025 8:24 AM [facility] Comments 08/15/2025 8:24 AM [facility] Was this request processed? Yes 08/15/2025 8:24 AM [facility] Other (Other) 08/15/2025 8:1 5 AM EST 08/15/2025 8:15 AM EST Carmen Orellana MD, PhD LAB GENERAL ORDERABLES Final Result Performing Organization Address City/State/[facility] Co de Phone Number [address] [address] * (ABNORMAL) Hepatic Panel (LFTs) (08/15/2025 6:22 AM EST) Only the most recent of3 resultswithin the time period is included. AST 49(H) <40 U/L 08/15/2025 7:17 AM [facility] ALT 60(H) <50 U/L 08/15/2025 7:17 AM [facility] Alkaline Phosphatase 134(H) 40 - 130 U/L 08/15/2025 7:17 AM [facility] Bilirubin, Total 0.2 0.0 - 1.2 mg/dL 08/15/2025 7:17 AM [facility] Bilirubin, Direct 0.1 0.0 - 0.3 mg/dL 08/15/2025 7:17 AM [facility] Total Protein 6.9 6.4 - 8.3 g/dL 08/15/2025 7:17 AM [facility] Albumin 3.6 3.5 - 5.2 g/dL 08/15/2025 7:17 AM [facility] Globulin 3.3 1.9 - 4.1 g/dL 08/15/2025 7:17 AM [facility] Blood (Blood) Catheter/Line / Unknown 08/15/2025 6:22 AM EST 08/15/2025 6:32 AM EST us Carmen Orellana MD, PhD LAB BLOOD BKR ORDERABLES Fin al Result [address] [address] * (ABNORMAL) CBC (08/15/2025 6:22 AM EST) Only the most recent of4 resultswithin the time period is included. WBC 10.34 4.00 - 11.00 K/uL 08/15/2025 6:37 AM [facility] RBC 3.43(L) 4.50 - 5.90 M/uL 08/15/2025 6:37 AM [facility] Hemoglobin 9.7(L) 13.5 - 17.5 g/dL 08/15/2025 6:37 AM [facility] Hematocrit 31.2(L) 41.0 - 53.0 % 08/15/2025 6:37 AM [facility] MCV 91.0 80.0 - 100.0 fL 08/15/2025 6:37 AM [facility] MCH 28.3 27.0 - 31.0 pg 08/15/2025 6:37 AM [facility] MCHC 31.1(L) 32.0 - 36.0 g/dL 08/15/2025 6:37 AM [facility] PLT 350 150 - 450 K/uL 08/15/2025 6:37 AM [facility] MPV 9.4 8.4 - 12.0 fL 08/15/2025 6:37 AM [facility] RDW-CV 16.6(H) 11.5 - 14.5 % 08/15/2025 6:37 AM [facility] Absolute NRBC 0.00 <=0.00 K cells/uL 08/15/2025 6:37 AM EST [facility] NRBC 0.0 <=0.0 /100 WBCs 08/15/2025 6:37 AM EST [facility] Blood (Blood) Catheter/Line / Unknown 08/15/2025 6:22 AM EST 08/15/2025 6:32 AM EST us Carmen Orellana MD, PhD LAB BLOOD BKR ORDERABLES Fin al Result Performing Organization Address City/[facility]/ZIP Co de Phone Number [address] [address] * Phosphorus (08/15/2025 6:22 AM EST) Only the most recent of10 resultswithin the time period is included. Phosphorus 3.2 2.5 - 4.5 mg/dL 08/15/2025 8:39 AM EST [facility] Blood (Blood) Catheter/Line / Unknown 08/15/2025 6:22 AM EST 08/15/2025 6:32 AM EST us Carmen Orellana MD, PhD LAB BLOOD BKR ORDERABLES Fin al Result Performing Organization Address [facility] Co de Phone Number [address] [address] * Magnesium (08/15/2025 6:22 AM EST) Only the most recent of11 resultswithin the time period is included. Magnesium 1.8 1.7 - 2.6 mg/dL 08/15/2025 7:17 AM EST [facility] Blood (Blood) Catheter/Line / Unknown 08/15/2025 6:22 AM EST 08/15/2025 6:32 AM EST us Carmen Orellana MD, PhD LAB BLOOD BKR ORDERABLES Fin al Result Performing Organization Address City/[facility] Co de Phone Number [address] [address] * (ABNORMAL) Basic Metabolic Panel (BMP) (08/15/2025 6:22 AM EST) Only the most recent of7 resultswithin the time period is included. Sodium 138 136 - 145 mmol/L 08/15/2025 7:17 AM [facility] Potassium 4.1 3.4 - 5.1 mmol/L 08/15/2025 7:17 AM [facility] Chloride 102 98 - 107 mmol/L 08/15/2025 7:17 AM [facility] CO2 25 20 - 31 mmol/L 08/15/2025 7:17 AM [facility] BUN 23 6 - 23 mg/dL 08/15/2025 7:17 AM [facility] Creatinine 0.30(L) 0.60 - 1.30 mg/dL 08/15/2025 7:17 AM [facility] Glucose 97 70 - 99 mg/dL 08/15/2025 7:17 AM [facility] Calcium 9.0 8.5 - 10.5 mg/dL 08/15/2025 7:17 AM [facility] eGFR 128 >59 mL/min/1.7 3m2 08/15/2025 7:17 AM [facility] Comment:Estimated glomerular filtration rate calculated using the CKD-EPI refit equation. Anion Gap 11 3 - 17 mmol/L 08/15/2025 7:17 AM [facility] Blood (Blood) Catheter/Line / Unknown 08/15/2025 6:22 AM EST 08/15/2025 6:32 AM EST us Carmen Orellana MD, PhD LAB BLOOD BKR ORDERABLES Fin al Result [facility] [address] [place] [address] * CT HEAD WITH AND WITHOUT CONTRAST (08/14/2025 11:39 AM EST) Anatomical Region Laterality Modality Head Computed Tomogra phy 08/14/2025 11:4 9 AM EST Impressions 08/14/2025 11:53 AM EST 1. No acute intracranial abnormality. No evidence of acute infarct, hemorrhage, or abnormal enhancement. Narrative 08/14/2025 11:[address] HEAD WITH AND WITHOUT CONTRAST Referring clinician's provided indication for this examination in [facility]: * Brain mass or lesion TECHNIQUE: Multidetector-row CT of the head was performed before and after administration of intravenous contrast using tailored dose modulation techniques. Images were reconstructed in the axial, coronal, and sagittal planes. COMPARISON: Head CT April 18, 2025. FINDINGS: Brain Parenchyma: No midline shift, mass effect, parenchymal hemorrhage, or evidence of acute territorial infarct. No enhancing abnormality. There are areas of hypodensity in the periventricular white matter, likely a manifestation of chronic small vessel disease. Ventricular System and Extra-Axial Spaces: Mild generalized parenchymal volume loss. No hydrocephalus. No midline shift or extra-axial fluid collection. Osseous and Extracranial Structures: No significant paranasal sinus disease. No intra-orbital abnormality. No suspicious osseous abnormality. Extracranial soft tissues are unremarkable. Procedure Note Ancelmo Doan MD - 08/14/2025 CT HEAD WITH AND WITHOUT CONTRAST Referring clinician's provided indication for this examination in [facility]: *Brain mass or lesion TECHNIQUE: Multidetector-row CT of the head was performed before and afteradministration of intravenous contrast using tailored dose modulationtechniques. Images were reconstructed in the axial, coronal, and sagittalplanes. COMPARISON: Head CT April 18, 2025. FINDINGS: Brain Parenchyma: No midline shift, mass effect, parenchymal hemorrhage,or evidence of acute territorial infarct. No enhancing abnormality. Thereare areas of hypodensity in the periventricular white matter, likely amanifestation of chronic small vessel disease. Ventricular System and Extra-Axial Spaces: Mild generalized parenchymalvolume loss. No hydrocephalus. No midline shift or extra-axial fluidcollection. Osseous and Extracranial Structures: No significant paranasal sinusdisease. No intra-orbital abnormality. No suspicious osseous abnormality.Extracranial soft tissues are unremarkable. IMPRESSION: 1. No acute intracranial abnormality. No evidence of acute infarct,hemorrhage, or abnormal enhancement. us Carmen Orellana MD, PhD IMG CT HEAD/NECK Final Resul t * Triglycerides (08/14/2025 6:11 AM EST) Only the most recent of3 resultswithin the time period is included. Triglycerides 80 <=150 mg/dL 08/14/2025 7:13 AM EST [facility] Blood (Blood) Catheter/Line / Unknown 08/14/2025 6:11 AM EST 08/14/2025 6:19 AM EST us Carmen Orellana MD, PhD LAB BLOOD BKR ORDERABLES Fin al Result [address] [address] * (ABNORMAL) Comprehensive Metabolic Panel (CMP) (08/12/2025 5:39 AM EST) Only the most recent of6 resultswithin the time period is included. Sodium 129(L) 136 - 145 mmol/L 08/12/2025 6:35 AM [facility] Potassium 4.2 3.4 - 5.1 mmol/L 08/12/2025 6:35 AM [facility] Chloride 93(L) 98 - 107 mmol/L 08/12/2025 6:35 AM [facility] CO2 26 20 - 31 mmol/L 08/12/2025 6:35 AM [facility] BUN 15 6 - 23 mg/dL 08/12/2025 6:35 AM [facility] Creatinine 0.30(L) 0.60 - 1.30 mg/dL 08/12/2025 6:35 AM [facility] Glucose 92 70 - 99 mg/dL 08/12/2025 6:35 AM [facility] Calcium 8.8 8.5 - 10.5 mg/dL 08/12/2025 6:35 AM [facility] AST 21 <40 U/L 08/12/2025 6:35 AM [facility] ALT 17 <50 U/L 08/12/2025 6:35 AM [facility] Alkaline Phosphatase 97 40 - 130 U/L 08/12/2025 6:35 AM [facility] Bilirubin, Total 0.2 0.0 - 1.2 mg/dL 08/12/2025 6:35 AM [facility] Total Protein 6.4 6.4 - 8.3 g/dL 08/12/2025 6:35 AM [facility] Albumin 3.4(L) 3.5 - 5.2 g/dL 08/12/2025 6:35 AM [facility] Globulin 3.0 1.9 - 4.1 g/dL 08/12/2025 6:35 AM [facility] eGFR 128 >59 mL/min/1.7 3m2 08/12/2025 6:35 AM [facility] Comment:Estimated glomerular filtration rate calculated using the CKD-EPI refit equation. Anion Gap 10 3 - 17 mmol/L 08/12/2025 6:35 AM [facility] Blood (Blood) Catheter/Line / Unknown 08/12/2025 5:39 AM EST 08/12/2025 5:51 AM EST us Carmen Orellana MD, PhD LAB BLOOD BKR ORDERABLES Fin al Result Performing Organization Address City/State/[facility] Co de Phone Number [address] [address] * PICC LINE INSERTION (IR) (08/10/2025 4:51 PM EST) Anatomical Region Laterality Modality X-Ray Angiograph y Narrative 08/15/2025 10:17 AM EST History: Metastatic prostate carcinoma. Failure to thrive. Central venous access desired TPN and stable venous access for medications and blood draws. Procedure: After sterile prep and drape (maximum sterile barrier utilized), right brachial vein was accessed with ultrasound guidance. Permanent image of upper extremity vein stored. Guidewire was placed and advanced to the SVC with fluoroscopy. 5 F dual lumen Medcomp Power PICC line was shortened to 42 cm and then placed. Patient tolerated the procedure well. No immediate complication. Medications: 1% buffered lidocaine anesthetic for cc EBL: Minimal. Complications: No immediate complication. Findings: Ultrasound image of the arm shows a normal appearance to the demonstrated deep vein. Image of the chest following the procedure shows PICC line in place with tip overlying the SVC. Impression: Dual lumen PICC line placement from a right upper extremity approach with ultrasound and fluoroscopy guidance. Catheter is ready for use. Radiation tracking: Fluoroscopy time 0.2 minutes, DAP 19.03 mGy/m us Carmen Orellana MD, PhD IMG IR Final Result * Tissue Exam (08/10/2025 1:33 PM EST) Final Pathologic Diagnosis A. DUODENUM; BIOPSY: No pathologic abnormalities. B. STOMACH, ANTRUM; BIOPSY: No pathologic abnormalities. C. ESOPHAGUS; BIOPSY: No pathologic abnormalities. 11:40 AM [facility] at 1140 EST Clinical History Pre-op diagnosis: Failure to thrive, weight loss, nausea vomiting diarrhea 11:40 AM [facility] Gross Description A. DUODENUM: Received in formalin are multiple irregular schmid-pink soft tissue fragments varying in size 0.2 x 0.2 x 0.2 cm up to 0.4 x 0.2 x 0.2 cm which are submitted in toto in a single cassette labeled A1. B. STOMACH, ANTRUM: Received in formalin is a 0.3 x 0.3 x 0.3 cm irregular portion of schmid-pink mucosal tissue which is submitted in toto in a single cassette labeled B1. C. ESOPHAGUS: Received in formalin are 3 irregular schmid-pink soft tissue fragments varying in size from 0.1 x 0.1 x 0.1 cm up to 0.4 x 0.2 x 0.1 cm which are submitted in toto in a single cassette labeled C1. 11:40 AM [facility] Grossed By Dano Beckett 11:40 AM [facility] Result Priority Level Routine 11:40 AM [facility] Disclaimer By their signature deja morin, the pathologist listed as making the Final Diagnosis certifies that they have personally reviewed the case and confirmed the diagnosis. All slides and stains were of sufficient quality to establish the diagnosis, unless otherwise stated. Due to loss of elastic tension and/or tissue shrinkage in formalin, the clinical sizes of tissue specimens may be larger than those provided in this report. 11:40 AM EST [facility] Procedure ESOPHAGOGASTRODUODENOSCOPY 11:40 AM EST [facility] Gastrointestinal Tissue (Duodenum) 08/10/2025 1:33 PM EST 08/10/2025 2:43 PM EST Comment:Pre-op diagnosis: See H&P Gastrointestinal Tissue (Stomach, Antrum) 08/10/2025 1:35 PM EST 08/10/2025 2:43 PM EST Comment:Pre-op diagnosis: See H&P Gastrointestinal Tissue (Esophagus) 08/10/2025 1:36 PM EST 08/10/2025 2:43 PM EST Comment:Pre-op diagnosis: See H&P us Nadia Fan MD LAB PATHOLOGY ORDERABLES F inal Result [facility] [address] [place] [address] * ENDOSCOPY PROCEDURE (08/10/2025 1:19 PM EST) Narrative Transcriptions Nadia Fan MD - 08/10/2025 1:19 PM EST [facility] Patient Name: Justin Mota MD:: NADIA FAN MD, Procedure Date: 08/10/2025 1:19 PM Date of : 1955 Age: 70 Admit Type: Inpatient Gender: Male Room: [facility] 04 Referring MD: Gadiel Tripp Exam Type: Upper GI endoscopy Indications: Failure to thrive, Weight loss Medications: Propofol per Anesthesia Procedure: Informed consent was obtained from the patientafter discussion of the indications, limitations, alternatives, benefits, and risks of the procedure. Risks specifically discussed include but are not limited to medication reactions, missed lesions, bleeding, perforation, or the need for emergent surgery. Throughout the procedure, the patient's blood pressure, pulse, end-tidal CO2, and oxygensaturations were monitored continuously. The Olympus gastroscope GIF-HQ190 #1 was introduced through the mouth, and advanced to the second partof duodenum. The upper GI endoscopy was accomplished without difficulty. The patient tolerated the procedure well. Complications: No immediate complications. Estimated blood loss:None. Findings: The examined esophagus was normal. Biopsies weretaken with a cold forceps for histology. A small hiatal hernia was present. The entire examined stomach and gastroesophageal junction (on retroflexion) were normal. Biopsieswere taken with a cold forceps for histology. (Biopsies were obtained from the antrum.) The examined duodenum was normal. Biopsies weretaken with a cold forceps for histology. Impression: - Normal esophagus. Biopsied. - Small hiatal hernia. - Normal stomach and gastroesophageal junction. Biopsied. - Normal examined duodenum. Biopsied. Recommendation: - Await pathology results. NADIA FAN MD 08/10/2025 1:40:25 PM This report has been signed electronically. Number of Addenda: 0 Note Initiated On: 08/10/2025 1:19 PM Procedure Code(s): --- Professional --- 72589, Esophagogastroduodenoscopy, flexible, transoral; with biopsy, single or multiple --- Technical --- 10163, Esophagogastroduodenoscopy, flexible, transoral; with biopsy, single or multiple Diagnosis Code(s): --- Professional --- K44.9, Diaphragmatic hernia without obstruction or gangrene R62.7, Adult failure to thrive R63.4, Abnormal weight loss --- Technical --- K44.9, Diaphragmatic hernia without obstruction or gangrene R62.7, Adult failure to thrive R63.4, Abnormal weight loss CPT copyright 2021 [employer]. All rights reserved. The codes documented in this report are preliminary and upon trust administrator reviewmay be revised to meet current compliance requirements. Procedure Date: 08/10/2025 1:19:[address] [place] [id number] us Gadiel CORNELL GI PROCEDURE ORDERABLES Final Result * (ABNORMAL) PT-INR (08/09/2025 5:35 AM EST) PT 15.3(H) 10.0 - 13.0 sec 08/09/2025 6:28 AM EST [facility] INR 1.2(H) 0.9 - 1.1 08/09/2025 6:28 AM EST [facility] Comment:Therapeutic Range 2. 0 - 3.5 Blood (Blood) Venipuncture / Unknown 08/09/2025 5:35 AM EST 08/09/2025 5:55 AM EST Jaswinder Lange MD LAB BLOOD BKR ORDERABLES Fin al Result [address] [address] * CT ABDOMEN/PELVIS WITH CONTRAST (08/08/2025 5:47 PM EST) Anatomical Region Laterality Modality Abdomen, Pelvis Computed Tomogra phy 08/08/2025 7:14 PM EST Impressions 08/08/2025 7:[address] explanation for symptoms. Narrative 08/08/2025 7:[address] ABDOMEN/PELVIS WITH CONTRAST Referring clinician's provided indication for this examination in [facility]: * Abdominal pain, acute, nonlocalized; Hx met prostate CA, worsening abdominal pain and bilateral rib pain, vomiting and no BM a few days ?obstruction, worsening mets TECHNIQUE: Multidetector-row CT of the abdomen and pelvis was performed after administration of intravenous contrast using tailored dose modulation techniques. Images were reconstructed in the axial, coronal, and sagittal planes. COMPARISON: CT ABDOMEN/PELVIS WITH CONTRAST FINDINGS: Lower Chest: There is been interval resolution of the previous ill-defined consolidative nodular opacities in both lower lobes. There is new bibasilar ectasis, with a somewhat nodular configuration. Liver: No focal lesions. Biliary: Noninflamed gallbladder. No biliary ductal dilatation. Spleen: No splenomegaly or focal lesions. Pancreas: No masses or ductal dilatation. Adrenal Glands: No nodules. Kidneys/Ureters: No hydronephrosis. Excreted contrast within the renal collecting systems and ureters. Bowel: No bowel obstruction. No bowel wall thickening or dilatation. Appendix not visualized, no secondary signs of appendicitis. Peritoneum/Retroperitoneum: Trace free fluid in the pelvis Lymph Nodes: No lymphadenopathy. Pelvic Organs/Bladder: Prior prostatectomy. Excreted contrast within the urinary bladder. Vessels: Aortic atherosclerosis. No aortic aneurysm. Bones/Soft Tissues: Degenerative changes of the spine. Procedure Note Alejandro Jauregui MD, PhD - 08/08/2025 CT ABDOMEN/PELVIS WITH CONTRAST Referring clinician's provided indication for this examination in [facility]: *Abdominal pain, acute, nonlocalized; Hx met prostate CA, worseningabdominal pain and bilateral rib pain, vomiting and no BM a few days?obstruction, worsening mets TECHNIQUE: Multidetector-row CT of the abdomen and pelvis was performedafter administration of intravenous contrast using tailored dosemodulation techniques. Images were reconstructed in the axial, coronal,and sagittal planes. COMPARISON: CT ABDOMEN/PELVIS WITH CONTRAST FINDINGS: Lower Chest: There is been interval resolution of the previous ill-definedconsolidative nodular opacities in both lower lobes. There is newbibasilar ectasis, with a somewhat nodular configuration. Liver: No focal lesions. Biliary: Noninflamed gallbladder. No biliary ductal dilatation. Spleen: No splenomegaly or focal lesions. Pancreas: No masses or ductal dilatation. Adrenal Glands: No nodules. Kidneys/Ureters: No hydronephrosis. Excreted contrast within the renalcollecting systems and ureters. Bowel: No bowel obstruction. No bowel wall thickening or dilatation.Appendix not visualized, no secondary signs of appendicitis. Peritoneum/Retroperitoneum: Trace free fluid in the pelvis Lymph Nodes: No lymphadenopathy. Pelvic Organs/Bladder: Prior prostatectomy. Excreted contrast within theurinary bladder. Vessels: Aortic atherosclerosis. No aortic aneurysm. Bones/Soft Tissues: Degenerative changes of the spine. IMPRESSION: No CT explanation for symptoms. Sandeep Henderson MD IMG CT ABD/PELVIS Final Result * ECG 12-LEAD (08/08/2025 3:19 PM EST) Only the most recent of2 resultswithin the time period is included. Ventricular Rate EKG/MIN 84 BPM [facility] Atrial Rate 84 BPM [facility] HI Interval 134 ms [facility] QRS Duration 82 ms [facility] QT Interval 416 ms [facility] QTC Interval 491 ms [facility] P [place] 76 degrees [facility] R Wave [place] 62 degrees [facility] T Wave [place] 57 degrees [facility] 08/08/2025 3:19 PM EST 08/09/2025 9:40 AM EST Narrative [facility] - 08/09/2025 9:40 AM EST Sinus rhythm with Premature atrial complexes Prolonged QT Abnormal ECG When compared with ECG of 30-May-2025 17:54, No significant change was found Confirmed by Zack Thomas ([id number]) on 08/09/2025 9:40:04 AM Sandeep Henderson MD ECG ORDERABLES Final Result [facility] * Lactate, Whole Blood (08/08/2025 3:08 PM EST) Lactate, Whole Blood 1.8 0.5 - 2.0 mmol/L 08/08/2025 3:15 PM EST [facility] Blood (Blood, Venous) Venipuncture / Unknown 08/08/2025 3:08 PM EST 08/08/2025 3:13 PM EST us Sandeep Henderson MD LAB BLOOD BKR ORDERABLES Final Result [facility] [address] [place] [address] * (ABNORMAL) CBC and Differential (08/08/2025 3:08 PM EST) Only the most recent of3 resultswithin the time period is included. WBC 9.18 4.00 - 11.00 K/uL 08/08/2025 3:19 PM [facility] RBC 3.92(L) 4.50 - 5.90 M/uL 08/08/2025 3:19 PM [facility] Hemoglobin 11.1(L) 13.5 - 17.5 g/dL 08/08/2025 3:19 PM [facility] Hematocrit 34.7(L) 41.0 - 53.0 % 08/08/2025 3:19 PM [facility] MCV 88.5 80.0 - 100.0 fL 08/08/2025 3:19 PM [facility] MCH 28.3 27.0 - 31.0 pg 08/08/2025 3:19 PM [facility] MCHC 32.0 32.0 - 36.0 g/dL 08/08/2025 3:19 PM [facility] MPV 9.0 8.4 - 12.0 fL 08/08/2025 3:19 PM [facility] RDW-CV 15.1(H) 11.5 - 14.5 % 08/08/2025 3:19 PM [facility] PLT 404 150 - 450 K/uL 08/08/2025 3:19 PM [facility] Neutrophils 86.8 % 08/08/2025 3:19 PM [facility] Lymphocytes 3.9 % 08/08/2025 3:19 PM [facility] Monocytes 8.8 % 08/08/2025 3:19 PM [facility] Eosinophils 0.1 % 08/08/2025 3:19 PM [facility] Basophils 0.1 % 08/08/2025 3:19 PM [facility] Imm Grans 0.3 % 08/08/2025 3:19 PM [facility] NRBC 0.0 <=0.0 /100 WBCs 08/08/2025 3:19 PM [facility] Absolute Neutrophils 7.96(H) 1.92 - 7.60 K/uL 08/08/2025 3:19 PM [facility] Absolute Lymphocytes 0.36(L) 0.72 - 4.10 K/uL 08/08/2025 3:19 PM [facility] Absolute Monocytes 0.81 0.16 - 1.10 K/uL 08/08/2025 3:19 PM [facility] Absolute Eosinophils 0.01 0.00 - 0.50 K/uL 08/08/2025 3:19 PM [facility] Absolute Basophils 0.01 0.00 - 0.15 K/uL 08/08/2025 3:19 PM [facility] Absolute Imm Grans 0.03 0.00 - 0.09 K/uL 08/08/2025 3:19 PM [facility] Absolute NRBC 0.00 <=0.00 K cells/uL 08/08/2025 3:19 PM [facility] Absolute Neutrophils 7.96(H) 1.92 - 7.60 K/uL 08/08/2025 3:19 PM [facility] Comment:Automated cell count . Manual ANC may differ if performed. Diff Type Auto 08/08/2025 3:19 PM [facility] Blood (Blood) Venipuncture / Unknown 08/08/2025 3:08 PM EST 08/08/2025 3:13 PM EST us Sandeep Henderson MD LAB BLOOD BKR ORDERABLES Final Result [facility] [address] [place] [address] * (ABNORMAL) Urinalysis with Reflex to Urine Culture (08/06/2025 1:48 PM EST) Only the most recent of2 resultswithin the time period is included. Color Anna(A) Yellow 08/06/2025 2:19 PM [facility] Comment:Abnormal urine color may be associated with false-positive results. Interpret results with caution. Clarity Clear Clear 08/06/2025 2:19 PM [facility] Glucose Negative Negative 08/06/2025 2:19 PM [facility] Bilirubin Urine 1+(A) Negative 2:19 PM [facility] Ketone Urine Trace(A) Negative 08/06/2025 2:19 PM [facility] Specific [place] 1.025 1.001 - 1.035 08/06/2025 2:19 PM [facility] Blood Trace(A) Negative 08/06/2025 2:19 PM [facility] pH 6.0 5.0 - 8.0 08/06/2025 2:19 PM [facility] Protein 1+(A) Negative 08/06/2025 2:19 PM [facility] Nitrites Negative Negative 08/06/2025 2:19 PM [facility] Leukocyte Esterase Negative Negative 08/06/2025 2:19 PM [facility] Urobilinogen Negative Negative 08/06/2025 2:19 PM [facility] Urine (Urine, Voided) Non-Blood Collection / Unknown 08/06/2025 1:48 PM EST 08/06/2025 1:53 PM EST us Chanel Whitt NP LAB URINE ORDERABLES Fin al Result [facility] [address] [place] [address] * (ABNORMAL) Urine Sediment (08/06/2025 1:48 PM EST) WBC 0-2 0 - 9 /hpf 08/06/2025 2:24 PM [facility] RBC 3-5(A) 0 - 2 /hpf 08/06/2025 2:24 PM [facility] Mucus Present(A) Not Present /hpf 08/06/2025 2:24 PM EST [facility] Urine (Urine, Voided) Non-Blood Collection / Unknown 08/06/2025 1:48 PM EST 08/06/2025 1:53 PM EST Chanel Whitt NP LAB URINE ORDERABLES Fin al Result Performing Organization Address [facility] Co de Phone Number [address] [address] * Prostate Specific Antigen (PSA), Monitoring (08/06/2025 11:54 AM EST) Only the most recent of3 resultswithin the time period is included. PSA Monitoring 0.99 ng/mL 08/06/2025 12:54 PM EST [facility] Comment:Post radical prostat ectomy results should be <0.1 ng/mL. Post therapy for other types of treatment should be <1.0 ng/mL. Blood (Blood) Venipuncture / Unknown 08/06/2025 11:54 AM EST 08/06/2025 11:56 AM EST Narrative [facility] - 08/06/2025 12:54 PM EST Test performed by Jordan electrochemiluminescent immunoassay (ECLIA). Results obtained by assays using different manufacturers or methods may not be comparable and cannot be used interchangeably for patient monitoring. Scott GORDON LAB BLOOD BKR ORDERABLES F inal Result Performing Organization Address [facility]/ZIP Co de Phone Number [address] [address] * 25-OH Vitamin D (08/06/2025 11:54 AM EST) 25-OH Vitamin D, Total 30 20 - 50 ng/mL 08/06/2025 12:54 PM EST [facility] Comment: Severe deficiency: <10 ng/mL Mild to moderate deficiency: 10-19 ng/mL Optimum levels: 20-50 ng/mL Increased risk of hypercalciuria: 51-80 ng/mL Possible toxicity: >80 ng/mL Blood (Blood) Venipuncture / Unknown 08/06/2025 11:54 AM EST 08/06/2025 11:56 AM EST us Scott GORDON LAB BLOOD BKR ORDERABLES F inal Result Performing Organization Address [facility]/ZIP Co de Phone Number [address] [address] * Troponin (05/30/2025 6:50 PM EDT) Only the most recent of2 resultswithin the time period is included. Troponin-T, HS Gen5 13 0 - 14 ng/L [facility] Blood 05/30/2025 6:50 PM EDT 05/30/2025 7:02 PM EDT Delia Alonso PA-C LAB BLOOD BKR ORDERAB LES Final Result Performing Organization Address [facility] Co de Phone Number [address] [address] * CT ABDOMEN/PELVIS WITH CONTRAST (05/30/2025 6:48 PM EDT) Anatomical Region Laterality Modality Abdomen, Pelvis Computed Tomogra phy 05/30/2025 8:07 PM EDT Impressions 05/30/2025 8:20 PM EDT 1. No acute abnormality in the abdomen or pelvis. 2. A 1.4 cm pulmonary nodule in the left lower lobe, significantly progressed compared to prior PET/CT when it measured 5 mm. This may be inflammatory/infective versus metastatic in etiology. 3. Partially visualized consolidated density in the right lower lobe, may be inflammatory or infective etiology. 4. Partially visualized sclerosis of the posterolateral right eighth rib with surrounding soft tissue thickening, unchanged. Narrative 05/30/2025 8:[address] ABDOMEN/PELVIS WITH CONTRAST Referring clinician's provided indication for this examination in Epic: * Bowel obstruction suspected TECHNIQUE: Multidetector-row CT of the abdomen and pelvis was performed after administration of intravenous contrast using tailored dose modulation techniques. Images were reconstructed in the axial, coronal, and sagittal planes. COMPARISON: 02/14/2025 FINDINGS: Lower Chest: A 1.4 cm nodule in the left lower lobe, previously measured up to 5 mm on prior PET/CT. Partially visualized consolidative density in the right lower lobe. Trace bilateral pleural fluid. Liver: No focal lesions. Biliary: Normal gallbladder. No biliary ductal dilatation. Spleen: No splenomegaly or focal lesions. Pancreas: Normal. No masses or ductal dilatation. Adrenal Glands: Normal. No nodules. Kidneys/Ureters: Normal. No solid masses, stones, or hydronephrosis. Bowel: Normal appendix. No abnormal dilatation or wall thickening. Peritoneum/Retroperitoneum: No masses, pneumoperitoneum, or fluid. Lymph Nodes: No lymphadenopathy. Pelvic Organs/Bladder: No mass. Partially distended urinary bladder. Status post prostatectomy. Vessels: No abdominal aortic aneurysm. Bones/Soft Tissues: Degenerative changes of the spine. Sclerosis of the posterolateral right eighth rib with surrounding soft tissue thickening, partially visualized, unchanged. Procedure Note Beny Curiel, EVAN - 05/30/2025 CT ABDOMEN/PELVIS WITH CONTRAST Referring clinician's provided indication for this examination in Epic: *Bowel obstruction suspected TECHNIQUE: Multidetector-row CT of the abdomen and pelvis was performedafter administration of intravenous contrast using tailored dosemodulation techniques. Images were reconstructed in the axial, coronal,and sagittal planes. COMPARISON: 02/14/2025 FINDINGS: Lower Chest: A 1.4 cm nodule in the left lower lobe, previously measuredup to 5 mm on prior PET/CT. Partially visualized consolidative density inthe right lower lobe. Trace bilateral pleural fluid. Liver: No focal lesions. Biliary: Normal gallbladder. No biliary ductal dilatation. Spleen: No splenomegaly or focal lesions. Pancreas: Normal. No masses or ductal dilatation. Adrenal Glands: Normal. No nodules. Kidneys/Ureters: Normal. No solid masses, stones, or hydronephrosis. Bowel: Normal appendix. No abnormal dilatation or wall thickening. Peritoneum/Retroperitoneum: No masses, pneumoperitoneum, or fluid. Lymph Nodes: No lymphadenopathy. Pelvic Organs/Bladder: No mass. Partially distended urinary bladder.Status post prostatectomy. Vessels: No abdominal aortic aneurysm. Bones/Soft Tissues: Degenerative changes of the spine. Sclerosis of theposterolateral right eighth rib with surrounding soft tissue thickening,partially visualized, unchanged. IMPRESSION: 1. No acute abnormality in the abdomen or pelvis. 2. A 1.4 cm pulmonary nodule in the left lower lobe, significantlyprogressed compared to prior PET/CT when it measured 5 mm. This may beinflammatory/infective versus metastatic in etiology. 3. Partially visualized consolidated density in the right lower lobe, maybe inflammatory or infective etiology. 4. Partially visualized sclerosis of the posterolateral right eighth ribwith surrounding soft tissue thickening, unchanged. Delia Alonso PA-C IMG CT ABD/PELVIS Fin al Result * (ABNORMAL) CBC and differential (05/30/2025 5:54 PM EDT) Only the most recent of3 resultswithin the time period is included. WBC 5.82 4.00 - 11.00 K/uL [facility] RBC 3.23(L) 4.50 - 5.90 M/uL [facility] HGB 10.0(L) 13.5 - 17.5 g/dL [facility] HCT 30.4(L) 41.0 - 53.0 % [facility] PLT 230 150 - 450 K/uL [facility] MCV 94.1 80.0 - 100.0 fL [facility] MCH 31.0 27.0 - 31.0 pg [facility] MCHC 32.9 32.0 - 36.0 g/dL [facility] RDW 13.6 11.5 - 14.5 % [facility] MPV 9.0 8.4 - 12.0 fL [facility] NRBC 0.00 0.00 /100 WBCs [facility] ABSOLUTE NRBC 0.00 0.00 K/uL [facility] DIFF METHOD Auto [facility] NEUTS 78.6(H) 48.0 - 76.0 % [facility] LYMPHS 9.6(L) 18.0 - 41.0 % [facility] MONOS 9.8 4.0 - 11.0 % [facility] EOS 1.4 0.0 - 5.0 % [facility] BASOS 0.3 0.0 - 1.5 % [facility] Granulocytes, immature (%) 0.3 0.0 - 0.9 % [facility] ABSOLUTE NEUTS 4.57 1.92 - 7.60 K/uL [facility] ABSOLUTE LYMPHS 0.56(L) 0.72 - 4.10 K/uL [facility] ABSOLUTE MONOS 0.57 0.16 - 1.10 K/uL [facility] ABSOLUTE EOS 0.08 0.00 - 0.50 K/uL [facility] ABSOLUTE BASOS 0.02 0.00 - 0.15 K/uL [facility] Granulocytes, immature 0.02 0.00 - 0.09 K/uL [facility] Blood 05/30/2025 5:54 PM EDT 05/30/2025 5:57 PM EDT Delia Alonso PA-C LAB BLOOD BKR ORDERAB LES Final Result [address] [address] * (ABNORMAL) Lipase (05/30/2025 5:54 PM EDT) LIPASE 11(L) 16 - 63 U/L [facility] Blood 05/30/2025 5:54 PM EDT 05/30/2025 5:57 PM EDT Delia CORNELL-Phan LAB BLOOD BKR ORDERAB LES Final Result [address] [address] from Last 3 Months Insurance [facility] MEDIC[facility] PART A & B [facility] MEDICARE PART A & [place] B Advance Directives For more information, please contact: [phone] (9AM - 5PM [facility], Wednesday-Wednesday) Documents on File Type Date Recorded Patient Checker Dump Grounds Expl anation MOLST 08/16/2025 1:41 PM Healthcare Proxy 08/16/2025 1:41 PM POLST 08/15/2025 3:54 PM Polst * DNR/DNI (No CPR/No Intubation) (Latest Code Status on File) Date Activated Date Inactivated Comments 08/09/2025 1:16 AM Question Answer Comments Code Status Confirmed With: Patient * Full Code Date Activated Date Inactivated Comments 08/08/2025 10:58 PM 08/09/2025 1:16 AM Question Answer Comments Code Status Confirmed With: Patient * Full Code Date Activated Date Inactivated Comments 02/13/2025 10:15 PM 08/08/2025 10:58 PM Question Answer Comments Code Status Confirmed With: Patient * Full Code Date Activated Date Inactivated Comments 02/08/2025 1:01 PM 02/13/2025 10:15 PM Question Answer Comments Code Status Confirmed With: Patient Code Status Communicated To: Inpatient Attending Healthcare Agents on File Name Relationship Healthcare Agent Relationshi p Communication Hina Araujo Sister Alternate Belkis lthcare Agent (Proxy form on file) Poppy Veliz Daughter .Primary Health Care Agent (Proxy form on file) Care Teams Lockstitch Sleeve Maker Relationship Specialty Start Date End Date Gadiel Tripp PA [address] [place] [address] PCP - General Physician Banking Teacher 12/19/24 Wilfred Maynard MD [address] [place] [address] [place] [address] Referring Physician Internal Medicine 11/19/15 Vira Nur MD [address] [place] [address] [place] [id number] [email or web address] Medical Oncology 04/16/23 [place] [address] [place] [id number] Physician Banking Teacher 04/16/23 Wilfred Maynard MD [address] [place] [address] [place] [address] Referring Physician Medical Oncology 04/16/23 Leslie Coello, FLAKITO [address] [place] [address] [email or web address] Primary Infusion Nurse 02/22/24 Scott Hooper MBBS [address] [place] [address] [email or web address] Medical [email or web address] 03/01/24 Chanel Whitt NP [address] [place] [id number] [email or web address] Nurse Practitioner Nurse Practitioner 06/01/25 Additional Source Comments The information contained in this document represents components of the legal health record. It is not the complete legal health record.[facility]
--- OUTSIDE RECORDS SUMMARY | 2025-08-21 11:28 | XMS_ITS | Encounter Summary ---
Author Organization [facility] Address [address] [place] [address] [address] [place] [address] Phone Care Team Providers Care Oil And Gas Superintendent Name Role Phone Wilfred Maynard MD Unavailable [phone] Vira Nur MD Unavailable [phone] Gadiel Tripp Unavailable [phone] Wilfred Maynard MD Unavailable [phone] Leslie Coello RN Unavailable Leslie [email or web address] Scott HooperBS Unavailable [phone] Gadiel Tripp Primary Care Provider + Chanel Whitt NP Unavailable [phone] Encounter Details Date Type Department Care Team (Late st Contact Info) Description 02/14/2025 Procedure Pass [facility] [address] [place] [address] Social History Tobacco Use Types Packs/Day Years [...] Description 09/13/2025 2:20 PM EST Office Visit [facility] Hematology Oncology Clinic at [address] [address] Scott Hooper [address] [address] [email or web address] 09/13/2025 2:40 PM EST Nutrition [facility] Hematology Oncology Clinic at [address] [address] Scott Hooper [address] [address] [email or web address] 09/25/2025 10:30 AM EST Office Visit [facility] Gastroenterology Clinic 10 [place] [address] Jenn Dang PA-C [address] [address] [email or web address] documented as of this encounter Visit Diagnoses Not on filedocumented in this encounter Care Teams Oil And Gas Superintendent Relationship Specialty Start Date End Date Gadiel Tripp PA [address] [place] [address] PCP - General Physician Finger Lift Operator 12/19/24 Wilfred Maynard MD [address] [place] [address] [place] [address] Referring Physician Internal Medicine 11/19/15 Vira Nur MD [address] 1230 [place] [address] [email or web address] Medical [email or web address] 04/16/23 [place] [address] [place] [address] Physician Finger Lift Operator 04/16/23 Wilfred Maynard MD [address] [place] [address] [place] [address] Referring Physician Medical Oncology 04/16/23 Leslie Coello, RN [address] [place] [address] [email or web address] Primary Infusion Nurse 02/22/24 Scott Hooper MBBS [address] [place] [address] [email or web address] 03/01/24 Chanel Whitt NP 30 [place] [address] [email or web address] Nurse Practitioner Nurse Practitioner 06/01/25 documented as of this encounter Additional Source Comments The information contained in this document represents components of the legal health record. It is not the complete legal health record.[facility]
--- OUTSIDE RECORDS SUMMARY | 2025-08-21 11:28 | XMS_ITS | Encounter Summary ---
Author Organization [facility] Address [address] [place] [address] [address] [place] [address] Phone Care Team Providers Care Jewish Thought Professor Name Role Phone Wilfred Maynard MD Unavailable [phone] Vira Nur MD Unavailable [phone] Gadiel Tripp Unavailable [phone] Wilfred Maynard MD Unavailable [phone] Leslie Coello RN Unavailable Leslie [email or web address] Scott HooperBS Unavailable [phone] Gadiel Tripp Primary Care Provider + Chanel Whitt NP Unavailable [phone] Encounter Details Date Type Department Care Team (Late st Contact Info) Description 02/14/2025 Procedure Pass [facility] 75 [place] [address] Social History Tobacco Use Types Packs/Day Years [...] [facility] Hematology Oncology Clinic at [address] [address] [address]oper [address] [address] [email or web address] 09/13/2025 2:40 PM EST Nutrition [facility] Hematology Oncology Clinic at [address] [address] [address] [address] [email or web address] 09/25/2025 10:30 AM EST Office Visit [facility] Gastroenterology Clinic 10 [place] [address] Jenn Dang PA-C [address] [address] [email or web address] documented as of this encounter Visit Diagnoses Not on filedocumented in this encounter Care Teams Jewish Thought Professor Relationship Specialty Start Date End Date Gadiel Tripp PA 1221 [place] [address] PCP - General Physician Employee Wellness/Fitness Coordinator 12/19/24 Wilfred Maynard MD [address] [place] [address] [place] [address] Referring Physician Internal Medicine 11/19/15 Vira Nur MD [address] 1230 [place] [address] [email or web address] Medical [email or web address] 04/16/23 [place] [address] [place] [address] Physician Employee Wellness/Fitness Coordinator 04/16/23 Wilfred Maynard MD [address] [place] [address] [place] [address] Referring Physician Medical Oncology 04/16/23 Leslie Coello, RN [address] [place] [address] [email or web address] Primary Infusion Nurse 02/22/24 Scott Hooper MBBS [address] [place] [address] [email or web address] Medical [email or web address] 03/01/24 Chanel Whitt NP 30 [place] [address] [email or web address] Nurse Practitioner Nurse Practitioner 06/01/25 documented as of this encounter Additional Source Comments The information contained in this document represents components of the legal health record. It is not the complete legal health record.[facility]
--- OUTSIDE RECORDS SUMMARY | 2025-08-21 11:29 | XMS_ITS | Clinical Summary ---
Author Organization [address] [facility] Address [address] [place] [address] Phone Care Team Providers Care Electric Locomotive Firer/Fireman Name Role Phone Physician, Pcp Unknown Primary Care Provider Elena vailable Encounters Date Type Department Care Team Description 08/20/2025 Lab Requisition [facility] - Main Lab 299 [facility] [place] [address] Scott Hooper MD Malignant neoplasm of prostate ([facility]/HCC V24, [facility] V28) from Last 3 Months Surgical History Surgery Date Site/Laterality Comments PROSTATECTOMY PROCEDURE:PROSTATECTOMY Medical History Medical History Date Comments Cancer ([facility] V24, [facility] V28) DX:Cancer (HCC);COMMENT:Prostate, Basal Cell Social History [...] on file Sexual Orientation Not on file Plan of Treatment Health Maintenance Due Date Last Done Comments Colorectal Cancer Screening: Colonoscopy 1955 DTaP,Tdap,and Td Vaccines (1 - Tdap) 1974 Pneumococcal Vaccine: 50+ Ye ars (1 of 1 - PCV) 2005 Zoster Vaccines (1 of 2) 2005 Abdominal Aortic Aneurysm (A AA) Screen 09/24/2023 Cholesterol Screening (Lipid Panel) 09/24/2023 Falls Risk Assessment 09/24/2023 Hepatitis C Screening 09/24/2023 Medicare Annual Wellness Visit 09/24/2023 Social Influencers of Health Screening 09/24/2023 Depression Screening 08/30/2024 COVID-19 Vaccine (1 - 2024-2 6 season) 2025 Influenza Vaccine (#1) 2025 RSV [...] on patient's age to complete this topic Procedures Procedure Name Priority Date/Time Associated Diagnosis Comments PHOSPHORUS Routine 08/20/2025 10:00 AM EST Malignant neoplasm of prostate (CMS/HCC V24, CMS/HCC V28) MAGNESIUM Routine 08/20/2025 10:00 AM EST Malignant neoplasm of prostate (CMS/HCC V24, CMS/HCC V28) COMPLETE BLOOD COUNT Routine 08/20/2025 10:00 AM EST Malignant neoplasm of prostate (CMS/HCC V24, CMS/HCC V28) PREALBUMIN Routine 08/20/2025 10:00 AM EST Malignant neoplasm of prostate (CMS/HCC V24, CMS/HCC V28) COMPREHENSIVE METABOLIC PANEL Routine 08/20/2025 10:00 AM EST Malignant neoplasm of prostate (CMS/HCC V24, CMS/HCC V28) from Last 3 Months Results * (ABNORMAL) Complete blood count (08/20/2025 10:00 AM EST) WBC 9.6 4.8 - 10.8 K/[facility] LAB HEMETOLOGY METHOD 08/20/2025 5:37 PM [facility] LAB RBC 3.30(L) 4.50 - 5.50 M/mcL LAB HEMETOLOGY METHOD 08/20/2025 5:37 PM [facility] LAB Hemoglobin 9.4(L) 13.5 - 17.5 g/dL LAB HEMETOLOGY METHOD 08/20/2025 5:37 PM [facility] LAB Hematocrit 30.3(L) 42.0 - 54.0 % LAB HEMETOLOGY METHOD 08/20/2025 5:37 PM [facility] LAB MCV 92.1 79.0 - 98.0 FL LAB HEMETOLOGY METHOD 08/20/2025 5:37 PM [facility] LAB MCH 28.6 27.0 - 32.0 pcg LAB HEMETOLOGY METHOD 08/20/2025 5:37 PM [facility] LAB MCHC 31.0(L) 32.0 - 37.0 g/dL LAB HEMETOLOGY METHOD 08/20/2025 5:37 PM [facility] LAB RDW 16.6(H) 11.0 - 15.0 % LAB HEMETOLOGY METHOD 08/20/2025 5:37 PM [facility] LAB Platelets 351 130 - 400 K/[facility] LAB HEMETOLOGY METHOD 08/20/2025 5:37 PM [facility] LAB MPV 10.5 7.0 - 11.0 FL LAB HEMETOLOGY METHOD 08/20/2025 5:37 PM [facility] LAB NRBC 0.0 <1.0 % LAB HEMETOLOGY METHOD 08/20/2025 5:37 PM [facility] LAB NRBC Absolute 0.00 <0.10 K/[facility] LAB HEMETOLOGY METHOD 08/20/2025 5:37 PM [facility] LAB Blood Venous blood specimen / Unknown 08/20/2025 10:00 AM EST 08/20/2025 3:20 PM EST us Scott Hooper MD LAB BLOOD ORDERABLES Final Res ult Performing Organization Address City/[facility]/ZIP Co de Phone Number [facility] [address] [place] [address], [place] [phone] * Prealbumin (08/20/2025 10:00 AM EST) Prealbumin 10 10 - 40 mg/dL 08/20/2025 6:17 PM EST [facility] Blood Venous blood specimen / Unknown 08/20/2025 10:00 AM EST 08/20/2025 3:20 PM EST Scott Hooper MD LAB BLOOD ORDERABLES Final Res ult Performing Organization Address [facility]/ZIP Co de Phone Number [facility] [address] [place] [address], [place] [phone] * Phosphorus (08/20/2025 10:00 AM EST) Phosphorus 3.7 2.5 - 4.5 mg/dL 08/20/2025 6:17 PM EST [facility] Blood Venous blood specimen / Unknown 08/20/2025 10:00 AM EST 08/20/2025 3:20 PM EST us Scott Hooper MD LAB BLOOD ORDERABLES Final Res ult Performing Organization Address City/[facility]/ZIP Co de Phone Number [facility] [address] [place] [address], [place] [phone] * (ABNORMAL) Magnesium (08/20/2025 10:00 AM EST) Magnesium 1.8(L) 1.9 - 2.6 mg/dL 08/20/2025 6:17 PM [facility] Blood Venous blood specimen / Unknown 08/20/2025 10:00 AM EST 08/20/2025 3:20 PM EST us Scott Hooper MD LAB BLOOD ORDERABLES Final Res ult [facility] [address] [place] [address], [place] [phone] * (ABNORMAL) Comprehensive metabolic panel (08/20/2025 10:00 AM EST) Sodium 140 133 - 145 mmol/L 08/20/2025 6:17 PM [facility] Potassium 4.2 3.5 - 5.5 mmol/L 08/20/2025 6:17 PM [facility] Chloride 99 96 - 110 mmol/L 08/20/2025 6:17 PM [facility] CO2 26 21 - 32 mmol/L 08/20/2025 6:17 PM [facility] Anion Gap 15(H) 3 - 11 08/20/2025 6:17 PM [facility] Glucose 98 70 - 100 mg/dL 08/20/2025 6:17 PM [facility] BUN 20 5 - 25 mg/dL 08/20/2025 6:17 PM [facility] Creatinine 0.38(L) 0.70 - 1.30 mg/dL 08/20/2025 6:17 PM [facility] eGFR 119 >=60 mL/min/1. 73m2 08/20/2025 6:17 PM [facility] Comment:Calculation based on the Chronic Kidney Disease Epidemiology Collaboration (CKD-EPI) equation refit without adjustment for race. BUN/Creatinine Ratio 52.6 08/20/2025 6:17 PM [facility] Calcium 7.9(L) 8.5 - 10.5 mg/dL 08/20/2025 6:17 PM [facility] AST (SGOT) 84(H) 10 - 42 unit/L 08/20/2025 6:17 PM [facility] ALT (SGPT) 153(H) 10 - 60 unit/L 08/20/2025 6:17 PM [facility] Alkaline Phosphatase 168(H) 42 - 121 unit/L 08/20/2025 6:17 PM [facility] Total Protein 6.3 6.0 - 8.0 g/dL 08/20/2025 6:17 PM [facility] Albumin 3.6 3.2 - 5.0 g/dL 08/20/2025 6:17 PM [facility] Total Bilirubin 0.2 0.0 - 1.4 mg/dL 08/20/2025 6:17 PM [facility] Blood Venous blood specimen / Unknown 08/20/2025 10:00 AM EST 08/20/2025 3:20 PM EST Scott Hooper MD LAB BLOOD ORDERABLES Final Res ult [facility] [address] [place] [address], from Last 3 Months Insurance MEDICA[place] - [place] MEDICARE Care Teams Electric Locomotive Firer/Fireman Relationship Specialty Start Date End Date Physician, Pcp Unknown PCP - General 08/20/25
--- OUTSIDE RECORDS SUMMARY | 2025-08-21 11:29 | XMS_ITS | Encounter Summary ---
Author Organization [facility] Address [address] [place] [address] Care Team Providers Care Materials Scheduler Name Role Phone Physician, Pcp Unknown Primary Care Provider Elena vailable Encounter Details Date Type Department Care Team (Late st Contact Info) Description 08/20/2025 Lab Requisition [facility] - Main Lab 299 [facility] [employer] [place] [address] Scott Hooper MD [address] [facility] [place] [address] Malignant neoplasm of prostate (CMS/HCC V24, CMS/HCC V28) Social History Tobacco Use Types Packs/Day Years Used Date Smoking Tobacco: Former Smokeless Tobacco: Never Alcohol Use Standard Drinks/Week Comments Not Currently 0 (1 standard drink = 0.6 oz pur e alcohol) Sex and Gender Information Value Date Recorded Sex Assigned at Not on file Legal Sex Male 9:06 PM EST Gender Identity Not on file Sexual Orientation Not on file documented as of this encounter Plan of Treatment Pending Results Name Type Priority Associated Diagnoses Date /Time Triglycerides Lab Routine Malignant neoplasm of prostate (CMS/HCC V24, CMS/HCC V28) 08/20/2025 10:00 AM EST documented as of this encounter Procedures Procedure Name Priority Date/Time Associated Diagnosis Comments COMPLETE BLOOD COUNT Routine 08/20/2025 10:00 AM EST Malignant neoplasm of prostate (CMS/HCC V24, CMS/HCC V28) PREALBUMIN Routine 08/20/2025 10:00 AM EST Malignant neoplasm of prostate (CMS/HCC V24, CMS/HCC V28) PHOSPHORUS Routine 08/20/2025 10:00 AM EST Malignant neoplasm of prostate (CMS/HCC V24, CMS/HCC V28) MAGNESIUM Routine 08/20/2025 10:00 AM EST Malignant neoplasm of prostate (CMS/HCC V24, CMS/HCC V28) COMPREHENSIVE METABOLIC PANEL Routine 08/20/2025 10:00 AM EST Malignant neoplasm of prostate (CMS/HCC V24, CMS/HCC V28) documented in this encounter Results * Phosphorus (08/20/2025 10:00 AM EST) Phosphorus 3.7 2.5 - 4.5 mg/dL 08/20/2025 6:17 PM EST [facility] Blood Venous blood specimen / Unknown 08/20/2025 10:00 AM EST 08/20/2025 3:20 PM EST Scott Hooper MD LAB BLOOD ORDERABLES Final Res ult Performing Organization Address City/[facility]/ZIP Co de Phone Number [facility] [address] [place] [address], [place] [phone] * (ABNORMAL) Magnesium (08/20/2025 10:00 AM EST) Pathologist [facility] Magnesium 1.8(L) 1.9 - 2.6 mg/dL 08/20/2025 6:17 PM EST [facility] Blood Venous blood specimen / Unknown 08/20/2025 10:00 AM EST 08/20/2025 3:20 PM EST Scott Hooper MD LAB BLOOD ORDERABLES Final Res ult [facility] [address] [place] [address], [place] [phone] * (ABNORMAL) Complete blood count (08/20/2025 10:00 AM EST) WBC 9.6 4.8 - 10.8 K/mcL LAB HEMETOLOGY METHOD 08/20/2025 5:[address] [facility] RBC 3.30(L) 4.50 - 5.50 M/mcL LAB HEMETOLOGY METHOD 08/20/2025 5:[address] [facility] Hemoglobin 9.4(L) 13.5 - 17.5 g/dL LAB HEMETOLOGY METHOD 08/20/2025 5:[address] [facility] Hematocrit 30.3(L) 42.0 - 54.0 % LAB HEMETOLOGY METHOD 08/20/2025 5:[address] [facility] MCV 92.1 79.0 - 98.0 FL LAB HEMETOLOGY METHOD 08/20/2025 5:[address] [facility] MCH 28.6 27.0 - 32.0 pcg LAB HEMETOLOGY METHOD 08/20/2025 5:[address] [facility] MCHC 31.0(L) 32.0 - 37.0 g/dL LAB HEMETOLOGY METHOD 08/20/2025 5:[address] [facility] RDW 16.6(H) 11.0 - 15.0 % LAB HEMETOLOGY METHOD 08/20/2025 5:[address] [facility] Platelets 351 130 - 400 K/mcL LAB HEMETOLOGY METHOD 08/20/2025 5:[address] [facility] MPV 10.5 7.0 - 11.0 FL LAB HEMETOLOGY METHOD 08/20/2025 5:[address] [facility] NRBC 0.0 <1.0 % LAB HEMETOLOGY METHOD 08/20/2025 5:[address] [facility] NRBC Absolute 0.00 <0.10 K/mcL LAB HEMETOLOGY METHOD 08/20/2025 5:[address] [facility] Blood Venous blood specimen / Unknown 08/20/2025 10:00 AM EST 08/20/2025 3:20 PM EST us Scott Hooper MD LAB BLOOD ORDERABLES Final Res ult Performing Organization Address City/[facility]/ZIP Co de Phone Number [facility] [address] [place] [address], [place] [phone] * Prealbumin (08/20/2025 10:00 AM EST) Prealbumin 10 10 - 40 mg/dL 08/20/2025 6:[address] [facility] Blood Venous blood specimen / Unknown 08/20/2025 10:00 AM EST 08/20/2025 3:20 PM EST Scott Hooper MD LAB BLOOD ORDERABLES Final Res ult Performing Organization Address City/[facility]/ZIP Co de Phone Number [facility] [address] [place] [address], [place] [phone] * (ABNORMAL) Comprehensive metabolic panel (08/20/2025 10:00 AM EST) Sodium 140 133 - 145 mmol/L 08/20/2025 6:[address] [facility] Potassium 4.2 3.5 - 5.5 mmol/L 08/20/2025 6:[address] [facility] Chloride 99 96 - 110 mmol/L 08/20/2025 6:[address] [facility] CO2 26 21 - 32 mmol/L 08/20/2025 6:[address] [facility] Anion Gap 15(H) 3 - 11 08/20/2025 6:[address] [facility] Glucose 98 70 - 100 mg/dL 08/20/2025 6:[address] [facility] BUN 20 5 - 25 mg/dL 08/20/2025 6:[address] [facility] Creatinine 0.38(L) 0.70 - 1.30 mg/dL 08/20/2025 6:[address] [facility] eGFR 119 >=60 mL/min/1. 73m2 08/20/2025 6:[address] [facility] Comment:Calculation based on the Chronic Kidney Disease Epidemiology Collaboration (CKD-EPI) equation refit without adjustment for race. BUN/Creatinine Ratio 52.6 08/20/2025 6:[address] [facility] Calcium 7.9(L) 8.5 - 10.5 mg/dL 08/20/2025 6:[address] [facility] AST (SGOT) 84(H) 10 - 42 unit/L 08/20/2025 6:[address] [facility] ALT (SGPT) 153(H) 10 - 60 unit/L 08/20/2025 6:[address] [facility] Alkaline Phosphatase 168(H) 42 - 121 unit/L 08/20/2025 6:[address] [facility] Total Protein 6.3 6.0 - 8.0 g/dL 08/20/2025 6:[address] [facility] Albumin 3.6 3.2 - 5.0 g/dL 08/20/2025 6:[address] [facility] Total Bilirubin 0.2 0.0 - 1.4 mg/dL 08/20/2025 6:[address] [facility] Blood Venous blood specimen / Unknown 08/20/2025 10:00 AM EST 08/20/2025 3:20 PM EST us Scott Hooper MD LAB BLOOD ORDERABLES Final Res ult [facility] [address] [place] [address], documented in this encounter Visit Diagnoses Diagnosis Malignant neoplasm of prostate (CMS/HCC V24, CMS/HCC V28) Malignant neoplasm of prostate documented in this encounter Care Teams Materials Scheduler Relationship Specialty Start Date End Date Physician, Pcp Unknown PCP - General 08/20/25 documented as of this encounter
--- OUTSIDE RECORDS SUMMARY | 2025-08-21 11:29 | XMS_ITS | Clinical Summary ---
Author Organization [facility] Prior to 01/27/25 Address [address] [place] [address] Care Team Providers Care Spar Cap Beveler Name Role Phone Unavailable Primary Care Provider [...]
--- OUTSIDE RECORDS SUMMARY | 2025-08-21 11:30 | XMS_ITS | Encounter Summary ---
Author Organization [facility] Address [address] [place] [address] Phone Care Team Providers Care Glue Mill Operator Name Role Phone Wilfred Maynard MD Unavailable [phone] Vira Nur MD Unavailable [phone] Gadiel Tripp Unavailable [phone] Wilfred Maynard MD Unavailable [phone] Leslie Coello RN Unavailable Leslie [email or web address] Scott HooperBS Unavailable [phone] Gadiel Tripp Primary Care Provider + Chanel Whitt NP Unavailable [phone] Encounter Details Date Type Department Care Team (Late st Contact Info) Description 01/04/2025 Procedure Pass [facility], Ct Scan - [address] [address] Social History Tobacco Use Types Packs/Day Years [...] [facility] Hematology Oncology Clinic at [address] [address] Scott Hooper MBBS [address] [place] [phone] [email or web address] 09/13/2025 2:40 PM EST Nutrition [facility] Hematology Oncology Clinic at [address] [address] Scott Hooper MBBS [address] [place] [phone] [email or web address] 09/25/2025 10:30 AM EST Office Visit [facility] Gastroenterology Clinic [address] [place] [address] Jenn Dang PA-C [address] [address] [email or web address] documented as of this encounter Visit Diagnoses Not on filedocumented in this encounter Care Teams Glue Mill Operator Relationship Specialty Start Date End Date Gadiel Tripp PA [address] [place] [address] PCP - General Physician Clinical Data Associate 12/19/24 Wilfred Maynard MD [address] [place] [address] [address] Referring Physician Internal Medicine 11/19/15 Vira Nur MD [address] [place] [address] DA [address] [place] [address] [email or web address] Medical [email or web address] 04/16/23 Gadiel Tripp PA [address] [place] [phone] Physician Clinical Data Associate 04/16/23 Wilfred Maynard MD [address] [place] [address] [address] Referring Physician Medical Oncology 04/16/23 Leslie Coello, RN [address] [place] [address] [email or web address] Primary Infusion Nurse 02/22/24 Scott Hooper MBBS [address] [place] [address] [email or web address] Medical [email or web address] 03/01/24 Chanel Whitt NP [address] [place] [address] [email or web address] Nurse Practitioner Nurse Practitioner 06/01/25 documented as of this encounter Additional Source Comments The information contained in this document represents components of the legal health record. It is not the complete legal health record.[facility]
--- OUTSIDE RECORDS SUMMARY | 2025-08-21 11:30 | XMS_ITS | Patient Health Record ---
Author Organization [facility] Address [address] [place] [address] Care Team Providers Care Automatic Oven Operator Name Role Phone Gadiel Tripp Primary Care Provider Unavailab Wilfred Hyde Unavailable [phone] Allergies No Known Allergies Reason For Referral No Information Medications Medication SIG (Take, Route, Frequency, Duration) Notes Start Date End Date Status Omeprazole 20 MG Capsule Delayed Release 1 capsule Orally Once a day Not-Taking/NE N Percocet 5-325 MG Tablet 1 tablet as needed Orally every 6 hrs once or twice a day Active oxyCODONE-Acetaminop hen 5-325 MG Tablet TAKE 1 TABLET BY MOUTH TWICE DAILY Diagnosis Unavailable Oral; Duration: 30 Active Amoxicillin 500 MG Capsule TAKE ONE CAPSULE BY MOUTH THREE TIMES DAILY Oral; Duration: 10 Active amLODIPine Besylate 2.5 MG Tablet TAKE 2 TABLETS BY MOUTH DAILY Oral; Duration: 90 Active Escitalopram Oxalate 10 MG Tablet TAKE 1 TABLET BY MOUTH DAILY Diagnosis Unavailable Oral; Duration: 30 Active Testosterone 30 MG/ACT Solution 1 pump to skin in the morning Transdermal Once a day Not-Taking/NE N Omeprazole 40 MG Capsule Delayed Release TAKE 1 CAPSULE BY MOUTH EVERY MORNING; Duration: 30 Active predniSONE 20 MG Tablet Oral; Duration: 10 Not-Takin g/NE N Immunizations Vaccine Route Administration Date Status Comme nts Influenza Unknown 06/08/2018 Administered Social History Tobacco Use: Social History Observation Description Date Details (start date - stop date) Never Smoker NA - NA Social History Tobacco Use: Social Info Question Answer Notes Tobacco Use/Smoking Patient is a nonsmoker Additional Details Category Social Info Options Details Miscellaneous: Marital status: single Occupation: unemployed Section Notes: Nonsmoker x 1 year; no sig a lcohol Nonsmoker x 1 year; no sig a lcohol Nonsmoker; no sig alcohol Nonsmoker; no sig alcohol Problems Problem Type SNOMED Code ICD Code Onset Dates Problem Status W/U Status Risk Notes Problem Screening for malignant neoplasm of colon (539256377) Encounter for screening for malignant neoplasm of colon (Z12.11) Active confirmed Problem History of adenomatous polyp of colon (518667894) History of adenomatous polyp of colon (Z86.010) Active confirmed Problem Weight loss (538793012) Weight loss (R63.4) Active confirmed Problem Anorexia (13583627) Anorexia (R63.0) Active confirmed Problem Erosive esophagitis (96875695) Erosive esophagitis (K22.10) Active confirmed Problem Gastroesophageal reflux disease (373569316) GERD (gastroesophag eal reflux disease) (K21.9) Active confirmed Problem Pre-procedure evaluation check (862073911) Pre-procedural examination (Z01.818) Active confirmed Problem 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 Plan Of Treatment Future Test Test Name Order Date UPPER GI ENDOSCOPY 07/27/2012 COLONOSCOPY 07/27/2012 COLONOSCOPY 01/20/2019 Insurance Providers Payer Name Payer Address Payer Phone Subscriber Number Group Number Insured Name Patient Relationship to Insured Coverage Start Date Coverage End Date MEDICARE OF [place] [address] [place] [id number] MORGAN WEBER Self - patient is the insured MEDICAID OF [facility] [address] [place] [address] [id number] MORGAN WEBER Self - patient is the insured Medical (General) History Medical History History ICD Code Hx of tubular adenoma & hyperplastic hannah yps removed in 04/2007 GERD-EGD in 1998 with a HH-no Hamilton's 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 for polyps [...]
--- OUTSIDE RECORDS SUMMARY | 2025-08-21 11:30 | XMS_ITS | Encounter Summary ---
Author Organization [facility] Address [address] [place] [address] 985 [place] [address] Phone Care Team Providers Care Road Roller Operator Hot Mix Name Role Phone Chirag River MD Primary Care Provider Wilfred Maynard MD Unavailable [phone] Vira Nur MD Unavailable [phone] Gadiel Tripp Unavailable + [phone] Wilfred Maynard MD Unavailable +[phone] Leslie Coello RN Unavailable Leslie [email or web address] Scott Hooper Unavailable [phone] Gadiel Tripp Primary Care Provider + Chanel Whitt NP Unavailable +[phone] Encounter Details Date Type Department Care Team (Late st Contact Info) Description 12/12/2024 Procedure Pass [facility], Ct Scan - [address] [address] Social History Tobacco Use Types Packs/Day Years [...] Description 09/13/2025 2:20 PM EST Office Visit [facility] Hematology Oncology Clinic at [address] [address] [address] [address] [email or web address] 09/13/2025 2:40 PM EST Nutrition [facility] Hematology Oncology Clinic at [address] [address] Scott Hooper MBBS [address] [place] [address] [email or web address] 09/25/2025 10:30 AM EST Office Visit [facility]ology [facility] 10 [place] [address] Jenn Dang PA-C [address] [address] [email or web address] documented as of this encounter Visit Diagnoses Not on filedocumented in this encounter Care Teams Road Roller Operator Hot Mix Relationship Specialty Start Date End Date Chirag River MD [address] [place] [address] [place] [address] PCP - General Internal Medicine 06/21/15 12/18/24 Gadiel Tripp PA [address] [place] [address] PCP - General Physician Heading Pinner 12/19/24 Wilfred Maynard MD [address] [place] [address] [place] [address] Referring Physician Internal Medicine 11/19/15 Vira Nur MD [address] [place] [address] 1230 [place] [address] [email or web address] Medical Oncology 04/16/23 [place] [address] [place] [address] Physician Heading Pinner 04/16/23 Wilfred Maynard MD [address] [place] [address] Dr Solano [address] [place] [address] Referring Physician Medical Oncology 04/16/23 Leslie Coello, FLAKITO [address] [place] [address] [email or web address] Primary Infusion Nurse 02/22/24 Scott Hooper MBBS [address] [place] [address] [email or web address] Medical Oncology 03/01/24 Chanel Whitt NP [address] [place] [address] [email or web address] Nurse Practitioner Nurse Practitioner 06/01/25 documented as of this encounter Additional Source Comments The information contained in this document represents components of the legal health record. It is not the complete legal health record.[facility]
--- OUTSIDE RECORDS SUMMARY | 2025-08-21 11:30 | XMS_ITS | Encounter Summary ---
Author Organization [facility] Address [address] [place] [address] 985 [place] [address] Phone Care Team Providers Care Global Safety Officer Name Role Phone Chirag River MD Primary Care Provider Wilfred Maynard MD Unavailable + [phone] Vira Nur MD Unavailable [phone] Gadiel Tripp Unavailable +[phone] Wilfred Maynard MD Unavailable + [phone] Leslie Coello RN Unavailable Leslie [email or web address] Scott HooperBS Unavailable +[phone] Gadiel Tripp Primary Care Provider + Chanel Whitt NP Unavailable [phone] Encounter Details Date Type Department Care Team (Late st Contact Info) Description 02/23/2024 Procedure Pass [facility], [address] [address] Social History Tobacco Use Types Packs/Day Years [...] [facility] Hematology Oncology Clinic at [address] [address] [address] [address] [email or web address] 09/13/2025 2:40 PM EST Nutrition [facility] Hematology Oncology Clinic at [address] [address] [address] [address] [email or web address] 09/25/2025 10:30 AM EST Office Visit [facility] Gastroenterology Clinic 10 [place] [address] Jenn Dang PA-C [address] [address] [email or web address] documented as of this encounter Visit Diagnoses Not on filedocumented in this encounter Care Teams Global Safety Officer Relationship Specialty Start Date End Date Chirag River MD [address] [place] [address] [place] [address] PCP - General Internal Medicine 06/21/15 12/18/24 Gadiel Tripp PA [address] [place] [address] PCP - General Physician [employer] 12/19/24 Wilfred Maynard MD [address] [place] [address] [place] [address] Referring Physician Internal Medicine 11/19/15 Vira Nur MD [address] [place] [address] 1230 [place] [address] [email or web address] Medical Oncology 04/16/23 Gadiel Tripp PA 1221 [place] [address] Physician [address] 04/16/23 Wilfred Maynard MD [address] [place] [address] [place] [address] Referring Physician Medical Oncology 04/16/23 Leslie Coello, FLAKITO [address] [place] [address] [email or web address] Primary Infusion Nurse 02/22/24 Scott Hooper MBBS [address] [place] [address] [email or web address] Medical Oncology 03/01/24 Chanel Whitt NP [address] [place] [address] [email or web address] Nurse Practitioner Nurse Practitioner 06/01/25 documented as of this encounter Additional Source Comments The information contained in this document represents components of the legal health record. It is not the complete legal health record.[facility]
--- OUTSIDE RECORDS SUMMARY | 2025-08-21 11:30 | XMS_ITS | Encounter Summary ---
Author Organization [facility] Address [address] [place] [address] 985 [place] [address] Phone Care Team Providers Care Hospitality Ambassador Name Role Phone Chirag River MD Primary Care Provider Wilfred Maynard MD Unavailable + [phone] Vira Nur MD Unavailable [phone] Gadiel Tripp Unavailable + [phone] Wilfred Maynard MD Unavailable + [phone] Leslie Coello RN Unavailable Leslie [email or web address] Scott HooperBS Unavailable +[phone] Gadiel Tripp Primary Care Provider + Chanel Whitt NP Unavailable [phone] Encounter Details Date Type Department Care Team (Late st Contact Info) Description 12/15/2024 Procedure [facility] 30 [place] [address] Social History Tobacco Use Types Packs/Day Years [...] [facility] Clinic at [address] [address] [address] [address] [email or web address] 09/13/2025 2:40 PM EST Nutrition [facility]ematology Oncology Clinic at [address] [address] [address] [address] [email or web address] 09/25/2025 10:30 AM EST Office Visit [facility] Gastroenterology Clinic 10 [place] [address] Jenn Dang PA-C [address] [address] [email or web address] documented as of this encounter Visit Diagnoses Not on filedocumented in this encounter Care Teams Hospitality Ambassador Relationship Specialty Start Date End Date Chirag River MD [address] [place] [address] [place] [address] PCP - General Internal Medicine 06/21/15 12/18/24 Gadiel Tripp PA [address] [place] [address] PCP - General Physician Slitter Helper 12/19/24 Wilfred Maynard MD [address] [place] [address] [place] [address] Referring Physician Internal Medicine 11/19/15 Vira Nur MD [address] [place] [address] 1230 [place] [address] [email or web address] Medical Oncology 04/16/23 Gadiel Tripp PA 1221 [place] [address] Physician Slitter Helper 04/16/23 Wilfred Maynard MD [address] [place] [address] [place] [address] Referring Physician Medical Oncology 04/16/23 Leslie Coello, FLAKITO [address] [place] [address] [email or web address] Primary Infusion Nurse 02/22/24 Scott Hooper MBBS [address] [place] [address] [email or web address] Medical Oncology 03/01/24 Chanel Whitt NP [address] [place] [address] [email or web address] Nurse Practitioner Nurse Practitioner 06/01/25 documented as of this encounter Additional Source Comments The information contained in this document represents components of the legal health record. It is not the complete legal health record.[facility]
--- OUTSIDE RECORDS SUMMARY | 2025-08-21 11:30 | XMS_ITS | Encounter Summary ---
Author Organization [facility] Address [address] [place] [address] Phone Care Team Providers Care Mash Filter Operator Name Role Phone Wilfred Maynard MD Unavailable [phone] Vira Nur MD Unavailable [phone] Gadiel Tripp Unavailable [phone] Wilfred Maynard MD Unavailable +[phone] Leslie Coello RN Unavailable Leslie [email or web address] Scott Hooper Unavailable [phone] Gadiel Tripp Primary Care Provider + Chanel Whitt NP Unavailable +[phone] Reason for Visit * Reason Onset Date Comments Hydration 06/22/2025 Encounter Details Date Type Department Care Team ([facility] st Contact Info) Description 06/22/2025 Telephone [facility] at [facility] 30 [place] [address] Scott Hooper MBBS 30 [place] [address] [email or web address] Hydration () Social History Tobacco Use Types Packs/Day Years [...] housing situation today? I have yaniv sing 05/30/2025 How many times have you move [...] as of this encounter Progress Notes * Dayton Granados MD - 06/25/2025 12:42 PM EDT Bonilla, could you please look into the fentanyl refill situation? * Fany Alas RN - 06/25/2025 12:35 PM EDT Poppy called in again asking about hydration appts. She also asks for a refill on the fentanyl patches * Fany Alas RN - 06/22/2025 1:32 PM EDT Poppy calls in stating that Justin does not want to have the zometa infusions again. States he was too sick afterwards and does not want to feel like that again. However he did feel much better after the hydration appointments and wants to request Dr Hooper to arrange for twice a week hydration appts. documented in this encounter Plan of Treatment Upcoming Encounters Date Type Department Care Team (Late st Contact Info) Description 09/13/2025 2:20 PM EST Office Visit [facility] at [facility] 30 [place] [address] Scott Hooper MB 30 [place] [address] [email or web address] 09/13/2025 2:40 PM EST Nutrition [facility] Hematology Oncology Clinic at [address] [address] [address] [address] [email or web address] 09/25/2025 10:30 AM EST Office Visit [facility] Gastroenterology [facility] 10 [place] [address] Jenn Dang PA-C [address] [address] [email or web address] documented as of this encounter Visit Diagnoses Not on filedocumented in this encounter Care Teams Mash Filter Operator Relationship Specialty Start Date End Date Gadiel Tripp PA 1221 [place] [address] PCP - General Physician Carver Hand 12/19/24 Wilfred Maynard MD [address] [place] [address] Referring Physician Internal Medicine 11/19/15 Vira Nur MD [address] [place] [address] [email or web address] Medical Oncology 04/16/23 [place] [address] [place] [address] Physician Carver Hand 04/16/23 Wilfred Maynard MD [address] [place] [address] [facility] [place] [address] Referring Physician Medical Oncology 04/16/23 Leslie Coello RN [address] [place] [address] [email or web address] Primary Infusion Nurse 02/22/24 Scott Hooper MBBS [address] [place] [address] [email or web address] Medical Oncology 03/01/24 Chanel Whitt NP [address] [place] [address] [email or web address] Nurse Practitioner Nurse Practitioner 06/01/25 documented as of this encounter Additional Source Comments The information contained in this document represents components of the legal health record. It is not the complete legal health record.[facility]
--- OUTSIDE RECORDS SUMMARY | 2025-08-21 11:30 | XMS_ITS | Encounter Summary ---
Author Organization [facility] Address [address] [facility] [facility] [address] [place] [address] Phone Care Team Providers Care Oracle Apex Developer Name Role Phone Wilfred Maynard MD Unavailable [phone] Vira Nur MD Unavailable [phone] Gadiel Tripp Unavailable [phone] Wilfred Maynard MD Unavailable +[phone] Leslie Coello RN Unavailable Leslie [email or web address] Scott HooperBS Unavailable [phone] Gadiel Tripp Primary Care Provider + Chanel Whitt NP Unavailable +[phone] Encounter Details Date Type Department Care Team (Late st Contact Info) Description 05/30/2025 Procedure Pass [facility], Ct Scan - [address] [address] Social History Tobacco Use Types Packs/Day Years [...] Description 09/13/2025 2:20 PM EST Office Visit [facility] Hematology Oncology Clinic at [address] [address] [address] [address] [email or web address] 09/13/2025 2:40 PM EST Nutrition [facility] Hematology Oncology Clinic at [address] [address] [address] [address] [email or web address] 09/25/2025 10:30 AM EST Office Visit [facility] Gastroenterology Clinic [address] [place] [address] Jenn Dang PA-C [address] [address] [email or web address] documented as of this encounter Visit Diagnoses Not on filedocumented in this encounter Care Teams Oracle Apex Developer Relationship Specialty Start Date End Date Gadiel Tripp PA 1221 [place] [address] PCP - General Physician Director Consumer Affairs 12/19/24 Wilfred Maynard MD [address] [place] [address] [place] [address] Referring Physician Internal Medicine 11/19/15 Vira Nur MD [address] [place] [address] 1230 [place] [address] [email or web address] Medical Oncology 04/16/23 Gadiel Tripp PA [address] [place] [address] Physician Director Consumer Affairs 04/16/23 Wilfred Maynard MD [address] [place] [address] [place] [address] Referring Physician Medical Oncology 04/16/23 Leslie Coello RN [address] [place] [address] [email or web address] Primary Infusion Nurse 02/22/24 Scott Hooper MBBS [address] [place] [address] [email or web address] Medical Oncology 03/01/24 Chanel Whitt NP 30 [place] [address] [email or web address] Nurse Practitioner Nurse Practitioner 06/01/25 documented as of this encounter Additional Source Comments The information contained in this document represents components of the legal health record. It is not the complete legal health record.[facility]
--- OUTSIDE RECORDS SUMMARY | 2025-08-21 11:31 | XMS_ITS | Encounter Summary ---
Author Organization Located Within [facility] Address [address] [place] [address] Phone Care Team Providers Care Personal Care Attendant Name Role Phone Wilfred Maynard MD Unavailable [phone] Vira Nur MD Unavailable +[phone] Gdaiel Tripp Unavailable +[phone] Wilfred Maynard MD Unavailable +[phone] Leslie Coello RN Unavailable Leslie [email or web address] Scott HooperBS Unavailable [phone] Gadiel Tripp Primary Care Provider + Chanel Whitt NP Unavailable +[phone] Reason for Referral * MRI/CAT Scan - Closed Specialty Diagnoses / Procedures Referred By Sarah t Referred To Contact Radiology Diagnoses Prostate cancer Prostate cancer metastatic to bone Procedures NM PET CT Prostate Cancer Imaging Kelsie Jamison CNP [address] [place] [address] Phone: tel: fax: mailto:[email or web address] Referral ID Status Reason Start Date Expiration Date Visits Re quested Visits Authorized [id number] Closed 05/10/2025 05/10/2026 1 1 Encounter Details Date Type Department Care Team (Late st Contact Info) Description 05/10/2025 Ancillary Orders Located Within [facility] [place] [facility] at [address] [address] Kelsie Jamison CNP [address] [place] [address] [email or web address] Prostate cancer (Primary Dx); Prostate cancer metastatic to bone Social History Tobacco Use Types Packs/Day Years [...] Description 09/13/2025 2:20 PM EST Office Visit [facility] Hematology Oncology Clinic at [address] [address] Scott Hooper MBBS [address] [place] [address] [email or web address] 09/13/2025 2:40 PM EST Nutrition [facility] Hematology Oncology Clinic at [address] [address] Scott Hooper MBBS [address] [place] [address] [email or web address] 09/25/2025 10:30 AM EST Office Visit Located [facility] Gastroenterology Clinic 10 [place] [address] Jenn Dang PA-C [address] [address] documented as of this encounter Results * NM PET CT Prostate Cancer Imaging (05/10/2025 2:40 PM EDT) Anatomical Region Laterality Modality Pelvis Positron Emissio n Tomography (PET) Narrative 05/10/2025 12:45 PM EDT ODD PET IMAGING Kelsie Jamison [facility] NM PET Final Result documented in this encounter Visit Diagnoses Diagnosis Prostate cancer- Primary Malignant neoplasm of prostate Prostate cancer metastatic to bone Prostate cancer Malignant neoplasm of prostate Prostate cancer metastatic to bone documented in this encounter Care Teams Personal Care Attendant Relationship Specialty Start Date End Date Gadiel Tripp PA [address] [place] [address] PCP - General Physician Hand Sprayer 12/19/24 Wilfred Maynard MD [address] [place] [address] Referring Physician Internal Medicine 11/19/15 Vira Nur MD [address] [place] [address] [email or web address] Medical Oncology 04/16/23 Gadiel Tripp PA [address] [place] [address] Physician Hand Sprayer 04/16/23 Wilfred Maynard MD [address] [place] [address] [place] [address] Referring Physician Medical Oncology 04/16/23 Leslie Coello RN [address] [place] [address] [email or web address] Primary Infusion Nurse 02/22/24 Scott Hooper MBBS [address] [place] [address] [email or web address] Medical Oncology 03/01/24 Chanel Whitt NP [address] [place] [address] [email or web address] Nurse Practitioner Nurse Practitioner 06/01/25 documented as of this encounter Additional Source Comments The information contained in this document represents components of the legal health record. It is not the complete legal health record.[facility]
--- OUTSIDE RECORDS SUMMARY | 2025-08-21 11:31 | XMS_ITS | Encounter Summary ---
Author Organization [facility] Address [address] [place] [address] 985 [place] [address] Phone Care Team Providers Care Pick And Shovel Man Name Role Phone Chirag River MD Primary Care Provider Wilfred Maynard MD Unavailable [phone] Vira Nur MD Unavailable +[phone] Gadiel Tripp Unavailable [phone] Wilfred Maynard MD Unavailable +[phone] Leslie Coello RN Unavailable Leslie Krause@[email or web address] Scott HooperBS Unavailable +[phone] Gadiel Tripp Primary Care Provider + Chanel Whitt NP Unavailable [phone] Encounter Details Date Type Department Care Team (Late st Contact Info) Description 12/14/2024 Procedure Pass [facility] 30 [place] [address] Social History Tobacco Use Types Packs/Day Years [...] [place] [facility] [place] [facility] at [address] [address] [address] [address] [email or web address] 09/13/2025 2:40 PM EST Nutrition [facility] at [address] [address] Scott Hooper [address] [address] [email or web address] 09/25/2025 10:30 AM EST Office Visit [facility] Gastroenterology Clinic 10 [place] [address] Jenn Dang PA-C [address] [address] [email or web address] documented as of this encounter Visit Diagnoses Not on filedocumented in this encounter Care Teams Pick And Shovel Man Relationship Specialty Start Date End Date Chirag River MD [address] [place] [address] [place] [address] PCP - General Internal Medicine 06/21/15 12/18/24 Gadiel Tripp PA [address] [place] [address] PCP - General Physician Leasing Machine Tender 12/19/24 Wilfred Maynard MD [address] [place] [address] [place] [address] Referring Physician Internal Medicine 11/19/15 Vira Nur MD [address] [place] [address] 1230 [place] [address] [email or web address] Medical Oncology 04/16/23 Gadiel Tripp PA 1221 [place] [address] Physician Leasing Machine Tender 04/16/23 Wilfred Maynard MD [address] [place] [address] [place] [address] Referring Physician Medical Oncology 04/16/23 Leslie Coello, FLAKITO [address] [place] [address] [email or web address] Primary Infusion Nurse 02/22/24 Scott Hooper MBBS [address] [place] [address] [email or web address] Medical [email or web address] 03/01/24 Chanel Whitt NP [address] [place] [address] [email or web address] Nurse Practitioner Nurse Practitioner 06/01/25 documented as of this encounter Additional Source Comments The information contained in this document represents components of the legal health record. It is not the complete legal health record.[facility]
--- OUTSIDE RECORDS SUMMARY | 2025-08-21 11:31 | XMS_ITS | Encounter Summary ---
Author Organization [facility] Address [address] [place] [address] 985 [place] [address] Phone Care Team Providers Care Lighter Captain Name Role Phone Wilfred Maynard MD Unavailable [phone] Vira Nur MD Unavailable [phone] Gadiel Tripp Unavailable [phone] Wilfred Maynard MD Unavailable +[phone] Leslie Coello RN Unavailable Leslie [email or web address] Scott HooperBS Unavailable [phone] Gadiel Tripp Primary Care Provider + Chanel Whitt NP Unavailable +[phone] Encounter Details Date Type Department Care Team (Late st Contact Info) Description 12/21/2024 Procedure Pass [facility], [address] [address] Social History Tobacco Use Types Packs/Day Years [...] [facility] at [address] [address] [address] [address] [email or web address] 09/13/2025 2:40 PM EST Nutrition [facility] Hematology Oncology Clinic at [address] [address] [address] [address] [email or web address] 09/25/2025 10:30 AM EST Office Visit [facility] Gastroenterology Clinic [address] [place] [address] Jenn Dang PA-C [address] [address] [email or web address] documented as of this encounter Visit Diagnoses Not on filedocumented in this encounter Care Teams Lighter Captain Relationship Specialty Start Date End Date Gadiel Tripp PA 1221 [place] [address] PCP - General Physician Monomer Recovery Supervisor 12/19/24 Wilfred Maynard MD [address] [place] [address] Referring Physician Internal Medicine 11/19/15 Vira Nur MD [address] [address] [address] [place] [address] [email or web address] Medical Oncology 04/16/23 Gadiel Tripp PA [address] [place] [address] Physician Monomer Recovery Supervisor 04/16/23 Wilfred Maynard MD [address] [place] [address] Referring Physician Medical Oncology 04/16/23 Leslie Coello RN [address] [place] [address] [email or web address]_[email or web address] Primary Infusion Nurse 02/22/24 Scott Hooper MBBS [address] [place] [address] [email or web address] Medical Oncology 03/01/24 Chanel Whitt NP [address] [place] [address] [email or web address] Nurse Practitioner Nurse Practitioner 06/01/25 documented as of this encounter Additional Source Comments The information contained in this document represents components of the legal health record. It is not the complete legal health record.[facility]
--- OUTSIDE RECORDS SUMMARY | 2025-08-21 11:31 | XMS_ITS | Encounter Summary ---
Author Organization [facility] Address [address] [place] [address] Phone Care Team Providers Care Landscaping Supervisor Name Role Phone Wilfred Maynard MD Unavailable [phone] Vira Nur MD Unavailable [phone] Gadiel Tripp Unavailable [phone] Wilfred Maynard MD Unavailable +[phone] Leslie Coello RN Unavailable Leslie Krause@[email or web address] Scott HooperBS Unavailable +[phone] Gadiel Tripp Primary Care Provider + Chanel Whitt NP Unavailable +[phone] Encounter Details Date Type Department Care Team (Late st Contact Info) Description 04/18/2025 Procedure Pass [facility], Ct Scan - [address] [address] Social History Tobacco Use Types Packs/Day Years [...] Description 09/13/2025 2:20 PM EST Office [facility] Hematology Oncology Clinic at [address] [address] [address] Hooper [address] [address] [email or web address] 09/13/2025 2:[address] [facility] Hematology Oncology Clinic at [address] [address] Scott Hooper [address] [address] [email or web address] 09/25/2025 10:30 AM EST Office Visit [facility] Gastroenterology Clinic [address] [place] [address] Jenn Dang PA-C [address] [address] [email or web address] documented as of this encounter Visit Diagnoses Not on filedocumented in this encounter Care Teams Landscaping Supervisor Relationship Specialty Start Date End Date Gadiel Tripp PA 1221 [place] [address] PCP - General Physician Manual Arts Therapy Teacher 12/19/24 Wilfred Maynard MD [address] [place] [address] [place] [address] Referring Physician Internal Medicine 11/19/15 Vira Nur MD [address] [place] [address] 1230 [place] [address] [email or web address] Medical Oncology 04/16/23 Gadiel Tripp PA [address] [place] [address] Physician Manual Arts Therapy Teacher 04/16/23 Wilfred Maynard MD [address] [place] [address] [place] [address] Referring Physician Medical Oncology 04/16/23 Leslie Coello RN [address] [place] [address] [email or web address] Primary Infusion Nurse 02/22/24 Scott Hooper MBBS [address] [place] [address] [email or web address] Medical Oncology 03/01/24 Chanel Whitt NP 30 [place] [address] [email or web address] Nurse Practitioner Nurse Practitioner 06/01/25 documented as of this encounter Additional Source Comments The information contained in this document represents components of the legal health record. It is not the complete legal health record.[facility]
--- OUTSIDE RECORDS SUMMARY | 2025-08-21 11:31 | XMS_ITS | Encounter Summary ---
Author Organization [facility] Address [address] [facility] [address] [place] [address] Phone Care Team Providers Care Cable Splicer Assistant Name Role Phone Wilfred Maynard MD Unavailable +[phone] Vira Nur MD Unavailable [phone] Gadiel Tripp Unavailable [phone] Wilfred Maynard MD Unavailable +[phone] Leslie Coello RN Unavailable Leslie Krause@[email or web address] Scott HooperBS Unavailable +[phone] Gadiel Tripp Primary Care Provider + Chanel Whitt NP Unavailable [phone] Encounter Details Date Type Department Care Team (Late st Contact Info) Description 04/18/2025 Procedure Pass [facility], Ct Scan - [address] [address] Social History Tobacco Use Types Packs/Day Years [...] Description 09/13/2025 2:20 PM EST Office Visit [facility] Hematology Oncology Clinic at [address] [address] [address] Hooper [address] [address] [email or web address] 09/13/2025 2:40 PM EST Nutrition [facility] Hematology Oncology Clinic at [address] [address] [address] [address] [email or web address] 09/25/2025 10:30 AM EST Office Visit [facility] Gastroenterology Clinic [address] [place] [address] Jenn Dang PA-C [address] [address] [email or web address] documented as of this encounter Visit Diagnoses Not on filedocumented in this encounter Care Teams Cable Splicer Assistant Relationship Specialty Start Date End Date Gadiel Tripp PA 1221 [place] [address] PCP - General Physician Chief Librarian Branch Or Department 12/19/24 Wilfred Maynard MD [address] [place] [address] [place] [address] Referring Physician Internal Medicine 11/19/15 Vira Nur MD [address] [place] [address] 1230 [place] [address] [email or web address] Medical Oncology 04/16/23 Gadiel Tripp PA [address] [place] [address] Physician Chief Librarian Branch Or Department 04/16/23 Wilfred Maynard MD [address] [place] [address] [place] [address] Referring Physician Medical Oncology 04/16/23 Leslie Coello RN [address] [place] [address] [email or web address] Primary Infusion Nurse 02/22/24 Scott Hooper MBBS [address] [place] [address] [email or web address] Medical Oncology 03/01/24 Chanel Whitt NP 30 [place] [address] [email or web address] Nurse Practitioner Nurse Practitioner 06/01/25 documented as of this encounter Additional Source Comments The information contained in this document represents components of the legal health record. It is not the complete legal health record.[facility]
--- OUTSIDE RECORDS SUMMARY | 2025-08-21 11:31 | XMS_ITS | Encounter Summary ---
Author Organization [facility] Address [address] [place] [address] 985 [place] [address] Phone Care Team Providers Care Event Decorator And Designer Name Role Phone Chirag River MD Primary Care Provider Wilfred Maynard MD Unavailable + [phone] Vira Nur MD Unavailable [phone] Gadiel Tripp Unavailable + [phone] Wilfrde Maynard MD Unavailable +[phone] Leslie Coello RN Unavailable Leslie Krause@[email or web address] Scott Hooper Unavailable +[phone] Gadiel Tripp Primary Care Provider + Chanel Whitt NP Unavailable [phone] Encounter Details Date Type Department Care Team (Late st Contact Info) Description 10/06/2024 Procedure Pass [facility], Ct Scan - [address] [address] Social History Tobacco Use Types Packs/Day Years [...] [facility] Hematology Oncology Clinic at [address] [address] Scott Hooper [address] [address] [email or web address] 09/13/2025 2:40 PM EST Nutrition [facility] Hematology Oncology Clinic at [address] [address] Scott Hooper MBBS [address] [place] [address] [email or web address] 09/25/2025 10:30 AM EST Office Visit [facility] Gastroenterology Clinic 10 [place] [address] Jenn Dang PA-C [address] [address] [email or web address] documented as of this encounter Visit Diagnoses Not on filedocumented in this encounter Care Teams Event Decorator And Designer Relationship Specialty Start Date End Date Chirag River MD [address] [place] [address] [place] [address] PCP - General Internal Medicine 06/21/15 12/18/24 Gadiel Tripp PA [address] [place] [address] PCP - General Physician Central Office Mechanic 12/19/24 Wilfred Maynard MD [address] [place] [address] [place] [address] Referring Physician Internal Medicine 11/19/15 Vira Nur MD [address] [place] [address] 1230 [place] [address] [email or web address] Medical Oncology 04/16/23 [place] [address] [place] [address] Physician Central Office Mechanic 04/16/23 Wilfred Maynard MD [address] [place] [address] Dr Solano [address] [place] [address] Referring Physician Medical Oncology 04/16/23 Leslie Coello, FLAKITO [address] [place] [address] [email or web address] Primary Infusion Nurse 02/22/24 Scott Hooper MBBS [address] [place] [address] [email or web address] Medical Oncology 03/01/24 Chanel Whitt NP [address] [place] [address] [email or web address] Nurse Practitioner Nurse Practitioner 06/01/25 documented as of this encounter Additional Source Comments The information contained in this document represents components of the legal health record. It is not the complete legal health record.[facility]
--- OUTSIDE RECORDS SUMMARY | 2025-08-21 11:31 | XMS_ITS | Encounter Summary ---
Author Organization [facility] Address [address] [place] [address] 985 [place] [address] Phone Care Team Providers Care Snowboard Instructor Name Role Phone Chirag River MD Primary Care Provider Wilfred Maynard MD Unavailable +[phone] Vira Nur MD Unavailable [phone] Gadiel Tripp Unavailable + [phone] Wilfred Maynard MD Unavailable +[phone] Leslie Coello RN Unavailable Leslie Krause@[email or web address] Scott Hooper Unavailable +[phone] Gadiel Tripp Primary Care Provider + Chanel Whitt NP Unavailable +[phone] Encounter Details Date Type Department Care Team (Late st Contact Info) Description 12/12/2024 Procedure Pass [facility], Ct Scan - [address] [address] Social History Tobacco Use Types Packs/Day Years [...] Description 09/13/2025 2:20 PM EST Office Visit [facility] Hematology Oncology Clinic at [address] [address] Scott Hooper [address] [address] [email or web address] [place] 09/13/2025 2:40 PM EST Nutrition [facility] Hematology Oncology Clinic at [address] [address] Scott Hooper MBBS [address] [place] [address] [email or web address] [place] 09/25/2025 10:30 AM EST Office Visit [facility] Gastroenterology Clinic 10 [place] [address] Jenn Dang PA-C [address] [address] [email or web address] documented as of this encounter Visit Diagnoses Not on filedocumented in this encounter Care Teams Snowboard Instructor Relationship Specialty Start Date End Date Chirag River MD [address] [place] [address] [place] [address] PCP - General Internal Medicine 06/21/15 12/18/24 Gadiel Tripp PA [address] [place] [address] PCP - General Physician Postal Delivery Officer 12/19/24 Wilfred Maynard MD [address] [place] [address] [place] [address] Referring Physician Internal Medicine 11/19/15 Vira Nur MD [address] [place] [address] 1230 [place] [address] [email or web address] 04/16/23 [place] [address] [place] [address] Physician Postal Delivery Officer 04/16/23 Wilfred Maynard MD [address] [place] [address] Dr Solano [address] [place] [address] Referring Physician Medical Oncology 04/16/23 Leslie Coello, FLAKITO [address] [place] [address] [email or web address]@[email or web address] Primary Infusion Nurse 02/22/24 Scott Hooper MBBS [address] [place] [address] [email or web address] Medical Oncology 03/01/24 Chanel Whitt NP [address] [place] [address] [email or web address] Nurse Practitioner Nurse Practitioner 06/01/25 documented as of this encounter Additional Source Comments The information contained in this document represents components of the legal health record. It is not the complete legal health record.[facility]
--- OUTSIDE RECORDS SUMMARY | 2025-10-12 19:00 | XMS_ITS | Clinical Summary ---
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:00: 00 Allergies, Adverse Reactions, Alerts Allergy Name Allergy Type Status Severity Reaction(s) Onset Date Inactive Date Treating Clinician Comments NKA Propensity to adverse reactions Active 2025-07 16:05:5 1 Immunizations Ordered Immunization Name Filled Immunization Name Date Status Comments Refusal Reason COVID-19, COVID-19 2025-08-15 00:00:00 Vital Signs Vital Name Observation Time Observation Value Commen ts Temperature 2025-08-20 09:47:00.000 98 [degF] Temperature 2025-08-16 14:12:00.000 98.1 [degF] Temperature 2025-08-15 13:13:00.000 97.9 [degF] BMI (%) 2025-08-15 14:16:00.000 17 kg/m2 Height 2025-08-15 14:16:00.000 76 [in_us] Pulse 2025-08-20 09:47:00.000 84 /min Pulse 2025-08-16 14:12:00.000 82 /min Pulse 2025-08-15 14:15:00.000 80 /min O2 Saturation (%) 2025-08-16 14:13:00.000 96 % Respirations 2025-08-20 09:47:00.000 18 /min Respirations 2025-08-16 14:12:00.000 18 /min Respirations 2025-08-15 13:13:00.000 18 /min Weight (lbs) 2025-08-15 14:16:00.000 140 [lb_av] Systolic Blood Pressure 2025-08-20 09:47:00.000 118 mm [Hg] Systolic Blood Pressure 2025-08-16 14:12:00.000 124 mm [Hg] Systolic Blood Pressure 2025-08-15 13:13:00.000 120 mm [Hg] Diastolic Blood Pressure 2025-08-20 09:47:00.000 72 mm [Hg] Diastolic Blood Pressure 2025-08-16 14:12:00.000 74 mm [Hg] Diastolic Blood Pressure 2025-08-15 13:13:00.000 70 mm [Hg] Plan of Treatment Planned Activity Planned Date Details Comments Future Scheduled Test SKILLED NU RSE TO EVALUATE PATIENT, IDENTIFY PRIMARY AND CO-MORBID CONDITIONS CODED PER CODING GUIDELINES, AND DEVELOP PATIENT SPECIFIC PLAN OF CARE THAT INCLUDES PATIENT GOAL FOR HOME HEALTH. PLAN OF CARE TO INCLUDE 3 PRN VISIT(S) FOR OASIS DATA COLLECTION/COMPREHENSIVE ASSESSMENT AT TIMEPOINTS PER FEDERAL REGULATIONS. THIS INCLUDES VISITS FOR JOYCE, RECERT, SCIC, AND/OR DC. [code = SKILLED NURSE TO EVALUATE PATIENT, IDENTIFY PRIMARY AND CO-MORBID CONDITIONS CODED PER CODING GUIDELINES, AND DEVELOP PATIENT SPECIFIC PLAN OF CARE THAT INCLUDES PATIENT GOAL FOR HOME HEALTH. PLAN OF CARE TO INCLUDE 3 PRN VISIT(S) FOR OASIS DATA COLLECTION/COMPREHENSIVE ASSESSMENT AT TIMEPOINTS PER FEDERAL REGULATIONS. THIS INCLUDES VISITS FOR JOYCE, RECERT, SCIC, AND/OR DC.] Future Scheduled Test SKILLED NU RSE TO REVIEW PATIENT MEDICATIONS (PRESCRIPTION/OTC). INSTRUCT PATIENT/CAREGIVER ON ALL MEDICATIONS INCLUDING PURPOSE, WHEN TO TAKE, IMPORTANCE OF MEDICATION ADHERENCE, MONITORING OF EFFECTIVENESS, ADVERSE DRUG REACTIONS, POSSIBLE SIDE EFFECTS, AND WHEN TO NOTIFY AGENCY OR PHYSICIAN/PROVIDER OF ANY CONCERNS. [code = SKILLED NURSE TO REVIEW PATIENT MEDICATIONS (PRESCRIPTION/OTC). INSTRUCT PATIENT/CAREGIVER ON ALL MEDICATIONS INCLUDING PURPOSE, WHEN TO TAKE, IMPORTANCE OF MEDICATION ADHERENCE, MONITORING OF EFFECTIVENESS, ADVERSE DRUG REACTIONS, POSSIBLE SIDE EFFECTS, AND WHEN TO NOTIFY AGENCY OR PHYSICIAN/PROVIDER OF ANY CONCERNS.] Future Scheduled Test PATIENT LANDERS S A RISK OF HOSPITALIZATION AND ED USE. SKILLED NURSE TO ESTABLISH SUPPORT MEASURES TO MINIMIZE RISK OF HOSPITALIZATION AND ED USE, AND INSTRUCT PATIENT/CAREGIVER ON METHODS TO REDUCE AVOIDABLE HOSPITALIZATION AND ED USE. [code = PATIENT HAS A RISK OF HOSPITALIZATION AND ED USE. SKILLED NURSE TO ESTABLISH SUPPORT MEASURES TO MINIMIZE RISK OF HOSPITALIZATION AND ED USE, AND INSTRUCT PATIENT/CAREGIVER ON METHODS TO REDUCE AVOIDABLE HOSPITALIZATION AND ED USE.] Future Scheduled Test SKILLED NU RSE TO PROVIDE INSTRUCTION TO PATIENT/CAREGIVER RELATED TO DISCHARGE PLANNING. [code = SKILLED NURSE TO PROVIDE INSTRUCTION TO PATIENT/CAREGIVER RELATED TO DISCHARGE PLANNING.] Future Scheduled Test SKILLED NU RSE TO PERFORM ENVIRONMENTAL SAFETY RISK ASSESSMENT AND FALL RISK ASSESSMENT AND PROVIDE INSTRUCTION TO IMPLEMENT ENVIRONMENTAL SAFETY AND FALL PREVENTION STRATEGIES THROUGHOUT THE CERTIFICATION PERIOD. SKILLED NURSE WILL MAINTAIN SITUATIONAL AWARENESS AND WILL NOTIFY CLINICAL NUMERICAL CONTROL MACHINE TOOL OPERATOR AND PHYSICIAN/PROVIDER WITH ANY CHANGE IN CONDITION. [code = SKILLED NURSE TO PERFORM ENVIRONMENTAL SAFETY RISK ASSESSMENT AND FALL RISK ASSESSMENT AND PROVIDE INSTRUCTION TO IMPLEMENT ENVIRONMENTAL SAFETY AND FALL PREVENTION STRATEGIES THROUGHOUT THE CERTIFICATION PERIOD. SKILLED NURSE WILL MAINTAIN SITUATIONAL AWARENESS AND WILL NOTIFY CLINICAL NUMERICAL CONTROL MACHINE TOOL OPERATOR AND PHYSICIAN/PROVIDER WITH ANY CHANGE IN CONDITION.] Future Scheduled Test SKILLED NU RSE FOR OBSERVATION AND ASSESSMENT OF PATIENT S PAIN LEVEL AND EFFECTIVENESS OF PAIN MANAGEMENT REGIMEN. SKILLED NURSE TO INSTRUCT PATIENT/CAREGIVER REGARDING PHARMACOLOGIC AND NON-PHARMACOLOGIC PAIN CONTROL MEASURES. SKILLED NURSE TO REPORT TO PHYSICIAN IF PAIN LEVEL IS OUTSIDE OF ESTABLISHED PARAMETERS. [code = SKILLED NURSE FOR OBSERVATION AND ASSESSMENT OF PATIENT S PAIN LEVEL AND EFFECTIVENESS OF PAIN MANAGEMENT REGIMEN. SKILLED NURSE TO INSTRUCT PATIENT/CAREGIVER REGARDING PHARMACOLOGIC AND NON-PHARMACOLOGIC PAIN CONTROL MEASURES. SKILLED NURSE TO REPORT TO PHYSICIAN IF PAIN LEVEL IS OUTSIDE OF ESTABLISHED PARAMETERS.] Future Scheduled Test SKILLED NU RSE TO ASSESS PATIENT'S SKIN INTEGRITY AND INSTRUCT PATIENT/CAREGIVER ON MEASURES TO PREVENT PRESSURE ULCERS. [code = SKILLED NURSE TO ASSESS PATIENT'S SKIN INTEGRITY AND INSTRUCT PATIENT/CAREGIVER ON MEASURES TO PREVENT PRESSURE ULCERS.] Future Scheduled Test SKILLED NU RSE FOR O/A AND SKILLED TEACHING RELATED TO ALTERED SKIN INTEGRITY [code = SKILLED NURSE FOR O/A AND SKILLED TEACHING RELATED TO ALTERED SKIN INTEGRITY] Future Scheduled Test SKILLED NU RSE FOR O/A, TEACHING, AND MANAGEMENT OF CARDIAC DISEASE) [code = SKILLED NURSE FOR O/A, TEACHING, AND MANAGEMENT OF CARDIAC DISEASE)] Future Scheduled Test SKILLED NU RSE FOR O/A, TEACHING AND MANAGEMENT OF GENITOURINARY DISEASE) FOR EARLY IDENTIFICATION OF EXACERBATION OF DISEASE PROCESS [code = SKILLED NURSE FOR O/A, TEACHING AND MANAGEMENT OF GENITOURINARY DISEASE) FOR EARLY IDENTIFICATION OF EXACERBATION OF DISEASE PROCESS] Future Scheduled Test SKILLED NU RSE FOR O/A AND SKILLED TEACHING RELATED TO SIGNS AND SYMPTOMS AND MANAGEMENT OF MUSCULOSKELETAL DISEASE) [code = SKILLED NURSE FOR O/A AND SKILLED TEACHING RELATED TO SIGNS AND SYMPTOMS AND MANAGEMENT OF MUSCULOSKELETAL DISEASE)] Future Scheduled Test SKILLED NU RSE FOR ADMINISTRATION AND TEACHING OF PARENTERAL NUTRITION INCLUDING MANAGEMENT OF DRESSING CHANGES TO ACCESS SITE, AND SIDE EFFECTS/COMPLICATIONS TO REPORT. [code = SKILLED NURSE FOR ADMINISTRATION AND TEACHING OF PARENTERAL NUTRITION INCLUDING MANAGEMENT OF DRESSING CHANGES TO ACCESS SITE, AND SIDE EFFECTS/COMPLICATIONS TO REPORT.] Future Scheduled Test SKILLED NU RSE TO OBTAIN BLOOD SPECIMEN VIA CENTRAL LINE OR VENIPUNCTURE IF UNABLE TO OBTAIN THROUGH LINE FOR LABS ORDERED WEEKLY CBC, CMP, MAG, PHOS, TRIGLY, PREALBUMIN, OBTAIN LAB RESULTS AND REPORT TO PHYSICIAN. [code = SKILLED NURSE TO OBTAIN BLOOD SPECIMEN VIA CENTRAL LINE OR VENIPUNCTURE IF UNABLE TO OBTAIN THROUGH LINE FOR LABS ORDERED WEEKLY CBC, CMP, MAG, PHOS, TRIGLY, PREALBUMIN, OBTAIN LAB RESULTS AND REPORT TO PHYSICIAN.] Future Scheduled Test SKILLED NU RSE FOR O/A AND TEACHING ON IV SITE CARE, INFUSION PROCEDURE, SIGNS AND SYMPTOMS OF INFECTION/COMPLICATIONS. SKILLED NURSE TO ACCESS PERIPHERAL LINE TO R UPPER ARM. SKILLED NURSE OR TRAINED PATIENT/CAREGIVER TO ADMINISTER TPN IV THERAPY OF 2000ML /DAY, FLUSH WITH 10CC NS, PRIOR TO INFUSION, RUN FOR 18HRS DAILY THEN FLUSH WITH 10CC NS AND 5CC HEPARIN. SKILLED NURSE TO CHANGE DRESSING Q 3 DAYS AND PRN FOR SOILED OR LOOSE DRESSING. [code = SKILLED NURSE FOR O/A AND TEACHING ON IV SITE CARE, INFUSION PROCEDURE, SIGNS AND SYMPTOMS OF INFECTION/COMPLICATIONS. SKILLED NURSE TO ACCESS PERIPHERAL LINE TO R UPPER ARM. SKILLED NURSE OR TRAINED PATIENT/CAREGIVER TO ADMINISTER TPN IV THERAPY OF 2000ML /DAY, FLUSH WITH 10CC NS, PRIOR TO INFUSION, RUN FOR 18HRS DAILY THEN FLUSH WITH 10CC NS AND 5CC HEPARIN. SKILLED NURSE TO CHANGE DRESSING Q 3 DAYS AND PRN FOR SOILED OR LOOSE DRESSING.] Goal Patient Goal - TO REMAIN WALE E Goal Provider Goal - A PLAN OF CARE WILL BE ESTABLISHED THAT MEETS PATIENT'S HALFWAY NEEDS AND INCLUDES PATIENT GOAL FOR HOME HEALTH. Goal Provider Goal - PATIENT/CAREGIVER WILL VERBALIZE UNDERSTANDING OF EDUCATION PROVIDED ON MEDICATIONS BY THE END OF THE CERTIFICATION PERIOD. Goal Provider Goal - PATIENT WILL HAVE SUPPORT MEASURES ESTABLISHED TO PREVENT HOSPITALIZATION AND ED USE AND PATIENT/CAREGIVER WILL VERBALIZE/DEMONSTRATE METHODS TO REDUCE AVOIDABLE HOSPITALIZATION AND ED USE BY END OF EPISODE. Goal Provider Goal - PATIENT/CAREGIVER WILL VERBALIZE UNDERSTANDING OF DISCHARGE PLANNING INSTRUCTIONS BY DATE OF DISCHARGE. Goal Provider Goal - PATIENT/CAREGIVER WILL VERBALIZE/DEMONSTRATE EFFECTIVE ENVIRONMENTAL SAFETY AND FALL PREVENTION STRATEGIES, WILL REMAIN SAFE IN THE COMMUNITY, AND WILL BE FREE OF DANGER TO SELF AND OTHERS THROUGHOUT THE CERTIFICATION PERIOD. Goal Provider Goal - PATIENT/CAREGIVER WILL DEMONSTRATE UNDERSTANDING OF PHARMACOLOGIC AND NONPHARMACOLOGIC PAIN CONTROL MEASURES AND PATIENT WILL HAVE IMPROVEMENT IN PAIN INTERFERING WITH ACTIVITY EVIDENCED BY PAIN AT A LEVEL THAT IS ACCEPTABLE TO THE PATIENT AND PAIN LEVEL WITHIN ESTABLISHED PARAMETERS BY END OF CERTIFICATION PERIOD. Goal Provider Goal - PATIENT/CAREGIVER WILL VERBALIZE UNDERSTANDING OF PRESSURE ULCER PREVENTION BY END OF THE EPISODE. Goal Provider Goal - PATIENT/CAREGIVER WILL VERBALIZE/DEMONSTRATE UNDERSTANDING OF TEACHING RELATED TO ALTERED SKIN INTEGRITY BY END OF CERTIFICATION PERIOD. Goal Provider Goal - PATIENT/CAREGIVER WILL VERBALIZE/DEMONSTRATE MANAGEMENT OF CARDIAC DISEASE PROCESS AND EXACERBATIONS WILL BE IDENTIFIED AND PROMPTLY REPORTED THROUGHOUT THE CERTIFICATION PERIOD. Goal Provider Goal - PATIENT/CAREGIVER WILL VERBALIZE UNDERSTANDING OF GENITOURINARY DISEASE PROCESS, AND EXACERBATIONS OF GENITOURINARY DISEASE WILL BE PROMPTLY IDENTIFIED FOR EARLY INTERVENTION THROUGHOUT THE CERTIFICATION PERIOD. Goal Provider Goal - PATIENT/CAREGIVER WILL VERBALIZE UNDERSTANDING OF MUSCULOSKELETAL DISEASE INCLUDING SIGNS AND SYMPTOMS, MANAGEMENT, AND PRESCRIBED TREATMENT REGIMEN BY END OF EPISODE. Goal Provider Goal - PATIENT/CAREGIVER WILL VERBALIZE/ DEMONSTRATE MANAGEMENT OF AND TOLERANCE TO PARENTERAL NUTRITION BY END OF CERT Goal Provider Goal - SKILLED NURSE TO PERFORM LAB PROCEDURE AND REPORT RESULTS TO PHYSICIAN. Goal Provider Goal - PATIENT/CAREGIVER WILL VERBALIZE UNDERSTANDING OF IV SITE CARE, INFUSION PROCEDURE AND SIGNS AND SYMPTOMS OF INFECTION/COMPLICATIONS TO BE REPORTED TO PHYSICIAN/NURSE. PATIENT WILL DEMONSTRATE TOLERANCE OF ADMINISTRATION OF PRESCRIBED MEDICATION. Progress Notes Progress Notes <paragraph>[Visit Date: 2024 by MITCHELL CASTILLO RN]:</paragraph><paragraph>HALFWAY VISIT Jul</paragraph><paragraph></paragraph><paragraph>ABNORMAL VITALS: NONE</paragraph><paragraph></paragraph><paragraph>ABNORMAL PHYSICAL ASSESSMENT: SEE BELOW</paragraph><paragraph></paragraph><paragraph>MEDICATION CHANGES: ALL MEDICATIONS RECONCILED WITHOUT ISSUE. NO NEW MEDS. OXYCODONE , SENNA AND FENTANYL ACTION AND SIDE EFFECTS TAUGHT. FAMILY REPORTS UNDERSTANDING.</paragraph><paragraph></paragraph><paragraph>OBSERVATION AND ASSESSMENT PROVIDED: VITAL SIGNS STABLE. NO FEVER BUT PATIENT SWEATING AND THEN COLD IN BED. PATIENT OX4 . PATIENT VERY WEAK AND UNSTEADY, NOT USING DEVICE ORDERED. POSITIVE BOWEL SOUNDS. NO SIGNS OF UTI. VN CHANGED RUE PICC LINE DRESSING AND OBTAINED LABS ORDERED, PATIENT TOLERATED WELL. VN DROPPED LABS AT [facility] ON BICENTENIAL HW IN SPFLD. NO SIGNS OF UTI. POSITIVE BOWEL SOUNDS.</paragraph><paragraph></paragraph><paragraph>TEACHING: TYPES OF LAB TESTS BEING DONE TAUGHT. DEHYDRATION PREVENTION TAUGHT SUCH H20 HYDRATION. CONSTIPATION PREVENTION TAUGHT SUCH LAXATIVE USE ORDERED. PATIENT / FAMILY REPORT UNDERSTANDING.</paragraph><paragraph></paragraph><paragraph>COMMUNICATION WITH MD:</paragraph><paragraph></paragraph><paragraph>NEXT MD APPOINTMENT: Jul UROLOGY</paragraph><paragraph></paragraph><paragraph>PATIENT AND CAREGIVER INSTRUCTED TO CALL [facility] WITH ANY QUESTIONS OR CONCERNS AND/OR CHANGES IN CONDITION. PATIENT REPORTS UNDERSTANDING</paragraph><paragraph></paragraph><paragraph>NEXT SNV PICC LINE DSG CHG, LABS NEXT WEEK WEDNESDAY</paragraph> Encounters Start Date/Time End Date/Time Encounter Type Admission Type Attending [facility] Facility Care Department Encounter ID Discharge Date Discharge Status Discharge Condition Discharge Reason Percent Goals Met 2025-08-15 00:00:00 2025-10-13 00:00:00 Outpatient NEW ADMISSION MITCHELL CASTILLO [facility] [id number]
== END 2025-08-21 11:19 | disposition home or self-care (01) ==
LOC: HO.HMCH 10:17
PROVIDERS: PCP Physician Assistant; Visit Provider Physician Assistant
DX: H61.21 Impacted cerumen, right ear (principal); F33.1 Major depressive disorder, recurrent, moderate; C61 Malignant neoplasm of prostate; C79.51 Secondary malignant neoplasm of bone

== ENCOUNTER → 2025-08-21 10:16 | Outpatient (BNVA) | payer MEDICARE, MEDICAID, SELFPAY | PROVIDERS: PCP Physician Assistant; Visit Provider Physician Assistant | DX: C61 Malignant neoplasm of prostate (principal); C79.51 Secondary malignant neoplasm of bone | CPT/HCPCS: 99212 ==

== ENCOUNTER 2025-08-21 11:25 | Outpatient (AMB) | payer MEDICARE, MEDICAID, SELFPAY ==
--- NOTE | 2025-08-21 11:27 | A.OFFVIS_ITS ---
Intake Visit Reasons: [facility] SET (NO UA ) Intake Note: Patient is present for:[facility] Medication:none Blood Thinner:NONE labs done 03/27/25: PSA 0.23, T-testo 20L Mri Supervisor Required: No Accompanied by: Self / Same As Patient Allergies Ibheutg-CMK-NoQ Reductase Inhibitor Adverse Reaction (Intermediate, Verified 08/21/25 11:30) Joint and muscle pain HPI Comments Details: Mr Briceno is a very pleasant male. He is a patient of Dr. Tripp. Copies of notes to his oncologist Dr Maynard. He is seen for the following urologic condition - prostate cancer - metastatic hormone responsive - hypogonadism Oncology - [facility] Dr Hooper GnRH today Accompanied by daughter Continued reasonable response to combination GnRH and 5 AR Three-month follow-up Recent admission Fuad Almonte failure to thrive Has been placed on TPN for nutrition supplementation Will hold GnRH given current nutritional status Discussed use of heating pad for pain release - clinical evidence of temporization Encourage use of lidocaine patches Three-month follow-up administer medication 08/23 - admission Fuad Almonte for abdominal pain and functional decline. Known metastatic disease to rib and thoracic spine. Current pain management includes fentanyl patch and oxycodone. 05/24 - labs from 03/23 0.23 T 20 - Doublet therapy darolutamide plus GnRH 03/27/25 GnRH administration 09/23 [facility] administration - PSA 0.2 - testosterone not done 06/22 On GnRH and Gisell PSA 0.5 - imaging through oncology at [facility] Tolterodine for bladder stability Continue Taxotere - needed some dexamethasone 03/22 GnRH long acting administered PSA 0.47 T 26 02/20 Rapid progression of prior metastatic site on vertebral body - 01/20 1.1 Extensive enhancing osseous metastatic disease involving the T7, T8, and to a lesser extent the T6 spinal elements as well as the right seventh eighth ribs and right seventh and eighth costovertebral junction Given rapid acting GnRH in [place] with Dr. Nur Start Nubeqa/darolutamide Assess for docetaxel 10/23 0.55, T 547 The site of biopsy proved metastatic prostate adenocarcinoma involving the posteromedial aspect of the right seventh rib shows mild tracer avidity with SUV max of 2.8 (PSMA score of 1). Note is also made of mild tracer avidity associated with underlying sclerosis involving the transverse processes of T6 vertebral body with SUV max of 1.9 (PSMA score of 0), highly suspicious for second site of metastatic disease. There are however no other osseous tracer avid disease identified to suspect additional sites of metastasis 04/21 right posterior 8th rib metastatic lesion - external beam radiation with Fuad Forbes - review with Dr. Nur [employer] - her conclusion was indolent prostate cancer with solitary bony met in setting of low PSA - recommendation was to repeat PSMA imaging every 4 months since following with PSA unreliable - would not initiate hormone therapy at this point given poor prior response Labs 03/20 P 0.21, T 448, 09/21 T 476 P 0.3, 12/20 T 481 P 0.5, 06/21 0.56 T 547n Prostate cancer: 2006 initial therapy prostatectomy grade 3+4, rising PSA 2007 with external beam radiation and subsequent intermittent hormones Prostate cancer was diagnosed December 2005 Dr Costa. Diagnosis was reached by needle biopsy. The Ashley grade is 3+4 = 7, at surgery - tertiary 5. Extraprostatic extension at base of gland. Seminal vesicles were involved. Left micrometastatic focus of prostatic adenocarcinoma in 2/5 lymph nodes. - ? of rib involvement 2011. TNM Classification of Malignant Tumours (TNM) T2a. The [place] (NCCN) risk category is Intermediate Risk (PSA 10-20, Gl 7, T2). Initial therapy included Primary treatment 2005 , Prostatectomy (RRP/Robotic) , Additional treatment 2007 , External Beam Radiation , Additional treatment 2009 , Hormonal Blockade - Continuous, with, GnRH agonists (Lupron) and , Antiandrogen (nilandron) , Additional treatment 2015 , Hormonal Blockade -intermittent Last 01/12 , Additional treatment Prolia 04/16. Recent labs included a PSA (prostate-specific antigen) October 2015 undetectable Jun 2016 , a PSA (prostate-specific antigen), < 0.1, a testosterone, < 20 ng/dL October 2016 , a PSA (prostate-specific antigen), , < 0.1, T Mar , a PSA (prostate-specific antigen), < 0.1 10/17 , a PSA (prostate-specific antigen), < 0.1, T 167, 04/16 , a PSA (prostate-specific antigen), < 0.1, 05/17 , a PSA (prostate-specific antigen), < 0.1 05/18 PSA < 0.1, T 465 12/17 , PSA 0.05, Hct 50.3, T not done, 04/18 PSA 0.12, T 1000 - 10/20 PSA 0.12 T 2231, 06/19 0.15 458, 11/18 0.19 479 Recent imaging included a bone scan reported as negative , a DEXA scan 2013 osteopenia , a DEXA scan 2015 , showing osteopenia/osteoporosis , Plain x-ray 12/14 - no rib fracture 04/15 , a bone scan - ? compression fracture - MRI completed 12/17 DEXA - Normal levels - 06/18 BONE SCAN, NORMAL DEGENERATIVE CHANGE, 06/19 bone scan degenerative change no metastatic disease - 01/19 DEXA - osteopenia - 01/19 bone scan degenerative changes - ?moderate to significant focal activity left anterior 5th costochondral junction and right posterior 8th rib - 04/21 CT right medial posterior eighth rib which in this demonstrates destructive lesion which also extends to the right transverse process of T8 slightly increased compared to prior imaging. Therapeutic plan: Continue with PSA monitoring [facility] Medical History Pure hypercholesterolemia Benign essential hypertension BRBPR (bright red blood per rectum) Pathologic rib fracture Acute upper gastrointestinal bleeding Annual physical exam Cough Right shoulder pain Prostate cancer Borderline high cholesterol Other forms of dyspnea Achilles tendon pain Hypogonadism in male HTN (hypertension) MDD (major depressive disorder), recurrent episode Anxiety Asthma Prostate cancer metastatic to bone Surgical History H/O endoscopy H/O prostatectomy Family History Father Pneumonia Substance abuse Mother CAD (coronary artery disease) CHF (congestive heart failure) Brother Stomach cancer Substance abuse Sister Breast cancer Substance abuse Social History Household Members: Friend(s) Housing: House Do you presently have visiting nurse or other home services: No Alcohol intake: never Patient Tobacco Use Status: Never used Tobacco Years Smoked: 40 yrs e-Cigarette/Vaping Use: Never Used Second Hand Smoke Exposure: No Substance Use Type: Marijuana service: No Current occupational status: unemployed Current occupation: [employer] Cognitive needs: No Hearing needs: No Vision needs: Yes (Pt went to an eye doctor about 4 years ago. ) Review of Systems Const Denies chills and Denies fever(s) Card Reports no additional complaints and Denies syncope Resp Denies cough GI Denies abdominal pain and Denies heartburn Reports as per HPI and Denies change in libido Neuro Denies syncope Psych Denies change in libido Endo Denies change in libido Physical Exam Const General: cooperative, healthy appearing, comfortable and no acute distress Orientation/consciousness: patient oriented x3 HEENT Face and sinus: Yes normal facial exam Mouth: moist mucous membranes Neck Neck: Yes normal visual inspection, Yes full ROM and Yes trachea midline Chest Chest palpation & inspection: normal inspection of the chest Resp Effort & Inspection: normal respiratory effort, able to speak in complete sentences and no respiratory distress GI Inspection: Yes normal to inspection Back/Spine/Pelvis Cervical Spine: normal cervical lordosis Thoracic/Lumbar Spine: thoracic and lumbar spine normal to inspection Skin General skin exam: no rashes or lesions noted Neuro General: patient oriented x3, gait normal, tone normal and moves all extremities Extrem General: Yes normal to inspection and Yes capillary refill normal Assessment & Plan Assessment & Plan (1) Prostate cancer metastatic to bone: Comment: Intermittent hormone therapy Code(s): C61 - Malignant neoplasm of prostate; C79.51 - Secondary malignant neoplasm of bone Category: Medical Plan Three-month follow-up GnRH office Orders: Orders Prostate Specific Antigen 3 Months C61 - Malignant neoplasm of prostate, C79.51 - Secondary malignant neoplasm of bone Testosterone, Total 3 Months C61 - Malignant neoplasm of prostate, C79.51 - Secondary malignant neoplasm of bone Patient Instructions: This note is constructed using voice recognition software. While every effort has been made to ensure accuracy cellular tower climber errors may have been included. Imaging studies, laboratory and physical exam results were discussed and reviewed in detail. No major barriers to patient understanding were identified. An opportunity to ask questions regarding the treatment plan was provided. All questions were answered. The patient expressed understanding and agreement with the above treatment plan. The patient is aware they should contact our office by phone for worsening of their current condition or the appearance of new urologic symptoms. Compliance is encouraged with any medications and followup testing that is ordered. It is a privilege to participate in the urologic care of your patient. If you have any questions or concerns regarding treatment for the above conditions, or other urologic issues, please do not hesitate to contact me. The office telephone contact is [phone]. Sincerely, Dr Chano Chen MD, [facility] - Urology Compassionate Specialist Care for the Genitourinary System Coding Level of Care Code Est Pt Level 3 (60242) Diagnoses Prostate cancer metastatic to bone C61; C79.51
== END 2025-08-21 12:05 | disposition home or self-care (01) ==
LOC: HO.HUSH 11:26
PROVIDERS: PCP Physician Assistant; Visit Provider Urology
DX: C61 Malignant neoplasm of prostate (principal); C79.51 Secondary malignant neoplasm of bone
CPT/HCPCS: 99213